=== PATIENT | female | born 1965 | race Caucasian/White ===

== ENCOUNTER → 2020-04-17 13:04 | Outpatient (CLI) | payer MEDICARE, MEDICAID, SELFPAY ==
[2020-04-17 13:25] LABS: Basophils % 0.1 % (0.1-2.0); Hematocrit 38.8 % (37.0-47.0); Hemoglobin 12.9 g/dL (12.2-16.2); Lymphocytes % 21.4 % (10-50); Mean Corpuscular HGB Conc 33.3 g/dL (31.8-35.4); Mean Corpuscular Hemoglobin 28.9 pg (27.0-31.2); Mean Corpuscular Volume 86.9 fl (81-99); Mean Platelet Volume 8.4 fl (7.4-10.4); Monocytes # 0.4 K/mm3 (0.1-1.0); Monocytes % 4.8 % (1.7-9.3); Neutrophils # 6.9 K/mm3 (1.8-7.8); Neutrophils % 73.8 % (37.0-80.0); Platelet Count 270 K/mm3 (142-424); Red Blood Count 4.46 M/mm3 (4.20-5.40); Red Cell Distribution Width 13.1 % (11.5-17.5); White Blood Count 9.3 K/mm3 (4.8-10.8)
[2020-04-17 13:45] LABS: Alanine Aminotransferase 15 U/L (12-78); Albumin Level 4.4 g/dl (3.5-5.0); Albumin/Globulin Ratio 1.4 (1.1-1.8); Alkaline Phosphatase 131 U/L (38-126); Anion Gap 12.6 mEq/L (5-15); Aspartate Amino Transferase 24 U/L (14-36); Bilirubin,Total 0.5 mg/dl (0.2-1.3); Blood Urea Nitrogen 12 mg/dl (7-17); Calcium 9.9 mg/dl (8.4-10.2); Carbon Dioxide 30 mmol/L (22.0-30.0); Chloride 102 mmol/L (98-107); Chol/HDL Ratio 2.4 (1-3.5); Cholesterol 213 mg/dl (140-200); Estimated Glomerular Filt Rate 65 ml/min (>60); GFR (African American) 79 ML/MIN (>60); Globulin 3.1 g/dL (1.3-3.2); Glucose 101 mg/dl (74-100); HDL Cholesterol 90 mg/dl (40-60); Potassium 4.6 mmoL/L (3.5-5.1); Sodium 140 mmol/L (136-145); Total Protein,Serum 7.5 g/dl (6.3-8.2); Triglycerides 115 mg/dl (30-150); VLDL Cholesterol 23 mg/dL (0-40)
[2020-04-17 13:56] LABS: Direct LDL Cholesterol 92.26 mg/dL (100-129)
[2020-04-17 14:03] LABS: Free T4 (Free Thyroxine) 1.29 ng/dl (0.78-2.19)
[2020-04-17 14:04] LABS: 25-OH Vitamin D, Total 59.7 ng/mL (30-100)
[2020-04-17 15:31] LABS: Erythrocyte Sedimentation Rate 20 mm/hr (0-30)
== END ==
PROVIDERS: Visit Provider Emergency Medicine
DX: E66.3 Overweight (principal); N39.0 Urinary tract infection, site not specified; R53.83 Other fatigue; E05.90 Thyrotoxicosis, unspecified without thyrotoxic crisis or storm; E55.9 Vitamin D deficiency, unspecified; R35.0 Frequency of micturition
CPT/HCPCS: 80053; 80061; 82306; 84439; 84443; 85025; 85651; 87086; 87088; 87186

== ENCOUNTER → 2020-04-29 07:46 | Outpatient (CLI) | payer MEDICARE, MEDICAID, SELFPAY ==
--- NOTE | 2020-04-29 07:51 | MM_ITS ---
PROCEDURE: MM DIG SCREENING MAMM BI W/CAD Digital Breast Tomosynthesis Included CLINICAL INDICATION: SCREENING There is a history of breast cancer patient's paternal cousins and paternal aunt. COMPARISON: MG MM MAMMO DIGITAL SCREENING W CAD BILAT from 04/13/2012 MG MM MAMMO DIGITAL DIAGNOSTIC W CAD BILAT from 01/27/2016 TECHNIQUE: Standard CC and MLO images and 3D Tomosynthesis was obtained. R2 CAD reviewed. FINDINGS: Scattered fibroglandular densities are seen throughout both breasts. There has been some interval fatty replacement of the breast parenchyma since the previous studies. Findings are bilateral and symmetrical. There is no suspicious lesion and no suspicious microcalcifications. IMPRESSION: Fibrofatty parenchyma with no suspicious lesions seen BI-RAD Category: 1 Negative FOLLOW-UP: 1YR 1 Year Follow-up (A letter has been sent to the patient regarding results of the study.) Dictated by: Dr. Kwan Yarbrough MD 05/05/2020 10:37 Dr. Kwan Yarbrough MD in [place] 05/05/2020 10:37
== END ==
PROVIDERS: PCP Emergency Medicine; Visit Provider Emergency Medicine
DX: Z12.31 Encounter for screening mammogram for malignant neoplasm of breast (principal)
CPT/HCPCS: 77063; 77067

== ENCOUNTER → 2020-05-01 09:53 | Outpatient (CLI) | payer MEDICARE, MEDICAID, SELFPAY ==
--- NOTE | 2020-05-01 09:53 | US_ITS ---
PROCEDURE: US KIDNEY Referring Doctor: Russell Garcia Patient Age:55Y CLINICAL INDICATION: Frequent, recurring UTIs. COMPARISON: No exams were available for comparison FINDINGS: The kidneys appear within normal limits bilaterally. No cyst nor mass nor hydronephrosis at either kidney. No echogenic foci. Cortex adequately maintained and good color Doppler flow survey bilaterally. There is fairly good visualization of right kidney more so than left. Right kidney 10 cm in length x4.1 cm x 5.45 cm. Left kidney 9.1 cm length x4 .6 cm x 4.4 cm. The spleen was included and appears normal size. IMPRESSION: Kidneys appears satisfactory bilateral. No abnormalities. /within normal limits bilateral Dictated by: Sherwin Snow MD 05/01/2020 13:39 Sherwin Snow MD in [facility] 05/01/2020 13:39
== END ==
PROVIDERS: PCP Emergency Medicine; Visit Provider Urology
DX: N39.0 Urinary tract infection, site not specified (principal)
CPT/HCPCS: 76770

== ENCOUNTER 2020-05-22 10:15 | Emergency (ER) | payer MEDICARE, MEDICAID, SELFPAY ==
[2020-05-22 10:35] VITALS: BP 144/89; PULSE 84; RESP 19; TEMP 37; O2SAT 98; BMI 26.6
--- NOTE | 2020-05-22 10:51 | HMH.EDUTC ---
[facility] – [place] Disposition Clinical Impression: Exposure to COVID-19 virus, Nausea, Itching Disposition: Home, Self-Care Condition on Discharge: Good Instructions: Preventing the Spread of Coronavirus Discharge Instructions Additional Instructions: You have been tested for COVID19. Please isolate yourself until test results received. Prescriptions: hydrOXYzine pamoate [Vistaril] 25 mg PO TID PRN 10 Days #30 cap PRN Reason: Itching Transmission Status: Pending to [facility] Ondansetron [Zofran 4mg ODT] 4 mg PO TIDP PRN 10 Days #30 tab PRN Reason: Nausea Transmission Status: Pending to [facility] Referrals: Albert Oliveros MD [Primary Care Provider] - Time of Disposition: 11:48 Medical Decision Making - [place] Inquiry Pt receiving controlled substance: No Vital Signs: 05/22/20 10:35 Temperature 98.6 F Temperature Source Oral Pulse Rate [Right Brachial] 84 Respiratory Rate 19 Blood Pressure [Right Arm] 144/89 H Blood Pressure Mean [Right Arm] 107 Blood Pressure Source [Right Arm] Automatic Cuff Blood Pressure Position [Right Arm] Sitting 02 Sat by Pulse Oximetry 98 Oxygen Delivery Method Room Air - Lab Data Lab results reviewed: Yes: I reviewed the patient's lab results. Lab Results 05/22/20 11:10: Sodium 139, Potassium 4.3, Chloride 101, Carbon Dioxide 31 H, Anion Gap 11.3, BUN 20 H, Creatinine 0.90, Estimated Creat Clear 88, Estimated GFR 65, Est GFR ( Amer) 79, Glucose 100, Calcium 9.5, Total Bilirubin 0.7, AST 42 H, ALT 27, Alkaline Phosphatase 97, Total Protein 8.1, Albumin 4.7, Globulin 3.4 H, Albumin/Globulin Ratio 1.4 Result diagrams: 05/22/20 11:10 Orders (Tests/Meds): ORDERS Category Date Time Status Full Resp Panel w/COVID ([facility]) Routine Lab 05/22/20 10:20 Received [facility] [place] HPI - General Stated complaint: Covid Test Time Seen by Provider: 05/22/20 10:51 - History of Present Illness Provider Complaint: Patient was exposed to COVID19 5-6 days ago. Has had headache, nausea, sweating and is itching all over. No rash. Denies fever. Denies ear pain, sore throat, cough, SOA, vomiting or diarrhea. Has felt poorly for 2 days. Onset (ago): day(s) (2) Consistency: constant Relieving factors: none Exacerbating factors: none Associated symptoms: headaches, malaise, nausea/vomiting Treatments prior to arrival: none - Related Data Home Medications Medication Instructions Recorded Confirmed clonidine HCl 0.1 mg tablet 0.1 mg PO QHS tab 04/17/20 05/22/20 tizanidine 4 mg tablet 4 mg PO TID tab 04/17/20 05/22/20 Previous Rx's Medication Instructions Recorded Ondansetron [Zofran 4mg ODT] 4 mg PO TIDP PRN 10 Days #30 tab 05/22/20 hydrOXYzine pamoate [Vistaril] 25 mg PO TID PRN 10 Days #30 cap 05/22/20 Allergies Allergy/AdvReac Type Severity Reaction Status Date / Time CODEINE Allergy Unknown Uncoded 05/04/20 11:55 From PAXIL Allergy Unknown Uncoded 05/04/20 11:55 MORPHINE Allergy Unknown Uncoded 05/04/20 11:55 [facility] History - Hepatitis A Screen Attestation statement:: This patient has been screened for Hepatitis A risk factors. Medical History: Reports:: Anxiety, Depression, Hyperlipidemia Other Medical History: Reports: Anemia, Arthritis, Other Laterality Cases: Left: Arthroscopy Shoulder, Carpal Tunnel Release Other Surgeries: Yes: Hysterectomy-Partial, Tubal Ligation, Other Amputation: No Fractures: Yes (jaw fx) Comment: brain tumor, back surgery and neck surgery with rods and screws, hand surgery, shoulder surgery - Social History Smoking Status: Former smoker Alcohol Intake: current Alcohol Intake Frequency:: holidays/special occasions only Substance Use Type: denies use Occupational Status: disabled Housing: other Household Members: other - Psychiatric History Pschychiatric History:: Reports:: Anxiety, Depression Family Hx:: Cancer, Heart Attack, Hypertension ROS Obtained: Yes All systems reviewed & no addit
[2020-05-22 11:36] LABS: Chloride 101 mmol/L (98-107); Sodium 139 mmol/L (136-145)
[2020-05-22 11:37] LABS: Potassium 4.3 mmoL/L (3.5-5.1)
[2020-05-22 11:39] LABS: Alanine Aminotransferase 27 U/L (12-78); Albumin Level 4.7 g/dl (3.5-5.0); Albumin/Globulin Ratio 1.4 (1.1-1.8); Alkaline Phosphatase 97 U/L (38-126); Anion Gap 11.3 mEq/L (5-15); Aspartate Amino Transferase 42 U/L (14-36); Bilirubin,Total 0.7 mg/dl (0.2-1.3); Blood Urea Nitrogen 20 mg/dl (7-17); Calcium 9.5 mg/dl (8.4-10.2); Carbon Dioxide 31 mmol/L (22.0-30.0); Creatinine Clearance Estimated 88 mL/min (50-200); Estimated Glomerular Filt Rate 65 ml/min (>60); GFR (African American) 79 ML/MIN (>60); Globulin 3.4 g/dL (1.3-3.2); Glucose 100 mg/dl (74-100); Total Protein,Serum 8.1 g/dl (6.3-8.2)
[2020-05-22 11:53] VITALS: BP 144/89; PULSE 84; RESP 19; TEMP 37; O2SAT 98
[2020-05-23 15:24] LABS: Covid-19 Nasal PCR Sendout Lex Not Detected
== END 2020-05-22 11:55 | disposition home or self-care (01) ==
PROVIDERS: Emergency Provider Physician Assistant; PCP Emergency Medicine
DX: Z20.828 Contact with and (suspected) exposure to other viral communicable diseases (principal); R11.0 Nausea; R51.9 Headache, unspecified; F41.8 Other specified anxiety disorders; E78.5 Hyperlipidemia, unspecified; Z87.891 Personal history of nicotine dependence
CPT/HCPCS: G0463; 80053; 99202; U0004

== ENCOUNTER 2020-05-29 20:11 | Emergency (ER) | payer MEDICARE, MEDICAID, SELFPAY ==
--- NOTE | 2020-05-29 20:20 | XR_ITS ---
PROCEDURE: XR KNEE LT 3V CLINICAL INDICATION: FALL Posttraumatic pain the COMPARISON: No exams were available for comparison FINDINGS: Oblique lucency is present along the lower pole of the patella consistent with a nondisplaced fracture. The joint spaces are well-preserved. No significant degenerative/arthritic changes. No erosive changes evident. Other findings:None. IMPRESSION: Nondisplaced patellar fracture Dictated by: Nahum Silverman MD 05/30/2020 08:33 Nahum Silverman MD in [place] 05/30/2020 08:33
[2020-05-29 20:22] VITALS: PULSE 97; RESP 18; TEMP 36.6; O2SAT 97; BMI 25.8
--- NOTE | 2020-05-29 20:35 | HMH.EDUTC ---
[facility] [place] Disposition Clinical Impression: Fall Qualifiers: Encounter type: initial encounter Qualified Code(s): W19.XXXA - Unspecified fall, initial encounter Left knee pain Qualifiers: Chronicity: acute Qualified Code(s): M25.562 - Pain in left knee Disposition: Home, Self-Care Condition on Discharge: Good Referrals: Albert Oliveros MD [Primary Care Provider] - Jhonatan Barrow MD [Staff Physician] - Medical Decision Making - Medical Records Medical records reviewed: No: I reviewed the patient's medical records. - [place] Inquiry Pt receiving controlled substance: No Vital Signs: 05/29/20 20:22 Temperature 97.9 F Temperature Source Oral Pulse Rate [Radial] 97 H Respiratory Rate 18 02 Sat by Pulse Oximetry 97 Oxygen Delivery Method Room Air Orders (Tests/Meds): ORDERS Category Date Time Status XR knee LT 3V Stat Exams 05/29/20 20:20 Ordered [facility] [place] HPI - General Stated complaint: AO Fell on knee 05/29/20 @230 p.m. Time Seen by Provider: 05/29/20 20:35 Mode of Arrival: Ambulatory Source of Information: Patient Limitations: No Limitations Description of Symptoms (Recalled from Triage Doc. by RN): States she fell at 230 this afternoon over a sidewalk and hurt her left knee. HEENT Symptoms (Recalled from RN notes): No Resp Symptoms (Recalled from RN notes): No Skin Symptoms (Recalled from RN notes): No MS Symptoms (Recalled from RN notes): No Functional Status (Recalled from RN notes): wnl - History of Present Illness Provider Complaint: She c/o left knee pain after falling at home in her yard and coming down on that knee. The pain is worse when she is trying to walk or bear weight. - Related Data Home Medications Medication Instructions Recorded Confirmed clonidine HCl 0.1 mg tablet 0.1 mg PO QHS tab 04/17/20 05/29/20 tizanidine 4 mg tablet 4 mg PO TID tab 04/17/20 05/29/20 Allergies Allergy/AdvReac Type Severity Reaction Status Date / Time codeine Allergy Verified 05/28/20 10:45 morphine Allergy Verified 05/28/20 10:45 paroxetine [From Paxil] Allergy Verified 05/28/20 10:45 - Worker's Comp Is this a Worker's Comp case?: No [facility] History - Hepatitis A Screen Drug use history?: No High risk sexual behaviors?: No History of sexually transmitted infection?: No Currently employed?: No Childcare worker?: No Do you have indoor plumbing?: Yes Do you have electricity?: Yes Attestation statement:: This patient has been screened for Hepatitis A risk factors. I have reviewed the patient's past medical history: Yes Medical History: Reports:: Anxiety, Depression, Hyperlipidemia Denies:: Cancer, Diabetes Mellitus Type 1, Diabetes Mellitus Type 2, Internal Pacemaker, MRSA Other Medical History: Reports: Anemia, Arthritis, Other Laterality Cases: Left: Arthroscopy Shoulder, Carpal Tunnel Release Other Surgeries: Yes: Hysterectomy-Partial, Tubal Ligation, Other. No: Pacemaker Amputation: No Fractures: Yes (jaw fx) Comment: brain tumor, back surgery and neck surgery with rods and screws, hand surgery, shoulder surgery - Social History Smoking Status: Never smoker Alcohol Intake: never Alcohol Intake Frequency:: holidays/special occasions only Substance Use Type: denies use Occupational Status: other Housing: house Household Members: other - Psychiatric History Pschychiatric History:: Reports:: Anxiety, Depression Family Hx:: Cancer ROS Obtained: Yes All systems reviewed & no additional complaints - Constitutional Constitutional: Denies chills, Denies fever(s) - Musculoskeletal Musculoskeletal: Reports as per HPI - Integumentary/Breasts Skin/Breast: Denies redness, Denies rash, Denies wounds - Neurologic Neurologic: Denies tingling/numbness/burning sensations Physical Exam - General General appearance: alert, in no apparent distress - Head Head exam: atraumatic, normocephalic, normal inspection - Eye Eye exam: Present: normal appearance, PERRL
--- NOTE | 2020-05-29 20:49 | HMH.EDUTC ---
[facility] [place]ression: Fall Qualifiers: Encounter type: initial encounter Qualified Code(s): W19.XXXA - Unspecified fall, initial encounter Fracture of left patella Qualifiers: Encounter type: initial encounter Fracture type: closed Fracture morphology: unspecified fracture morphology Fracture alignment: nondisplaced Qualified Code(s): S82.002A - Unspecified fracture of left patella, initial encounter for closed fracture Disposition: Home, Self-Care Condition on Discharge: Good Instructions: How to Use Crutches, DI for Patella Fracture, How to Take Care of Your Splint Additional Instructions: Follow up with Dr. Barrow (orthopedics). You need to call him on Monday at around 8:30 am to get an appointment to be seen at his office. Take the medication as directed. Rest the extremity, apply ice for 15 minutes as tolerated three or four times per day, Elevate the extremity as tolerated while you are resting. Follow up with your regular doctor. GO TO THE ER FOR ANY WORSENING SYMPTOMS Prescriptions: Ibuprofen [Ibuprofen 800mg Tablet] 800 mg PO Q8HP PRN #30 tab PRN Reason: Moderate Pain Transmission Status: Received by [facility] Referrals: Albert Oliveros MD [Primary Care Provider] - Jhonatan Barrow MD [Staff Physician] - Forms: Work/School Release Time of Disposition: 21:19 Medical Decision Making - Medical Records Medical records reviewed: No: I reviewed the patient's medical records. - [place] Inquiry Pt receiving controlled substance: No Vital Signs: 05/29/20 20:22 05/29/20 21:13 Temperature 97.9 F 97.9 F Temperature Source Oral Oral Pulse Rate 97 H Pulse Rate [Radial] 97 H Respiratory Rate 18 18 Blood Pressure 132/76 Blood Pressure Source Automatic Cuff Blood Pressure Position Sitting 02 Sat by Pulse Oximetry 97 Oxygen Delivery Method Room Air Room Air Orders (Tests/Meds): ED MEDICATIONS Discontinued Medications Generic Name Dose Route Start Last Admin Trade Name Freq PRN Reason Stop Dose Admin Ibuprofen 800 mg 05/29/20 21:24 05/29/20 21:30 Ibuprofen 400 Mg Tablet PO 05/29/20 21:25 800 mg ONCE ONE Administration ORDERS Category Date Time Status XR knee LT 3V Stat Exams 05/29/20 20:20 Taken - Radiology Data #1 Image(s): Knee Image Reviewed: Yes I reviewed the patient's radiology image Preliminary Findings: Abnormal Fractured patella Medical Decision Narrative: I spoke to Dr. Barrow over the phone regarding this patient and her x-ray. [facility] [place] - General Stated complaint: AO Fell on knee 05/29/20 @230 p.m. Time Seen by Provider: 05/29/20 20:35 Mode of Arrival: Ambulatory Source of Information: Patient Limitations: No Limitations Description of Symptoms (Recalled from Triage Doc. by RN): States she fell at 230 this afternoon over a sidewalk and hurt her left knee. HEENT Symptoms (Recalled from RN notes): No Resp Symptoms (Recalled from RN notes): No Skin Symptoms (Recalled from RN notes): No MS Symptoms (Recalled from RN notes): No Functional Status (Recalled from RN notes): wnl - History of Present Illness Provider Complaint: She states that she fell in her yard today and came down on her left knee. Since then she has been having left knee pain. The pain is worse with walking and bearing weight. - Related Data Home Medications Medication Instructions Recorded Confirmed clonidine HCl 0.1 mg tablet 0.1 mg PO QHS tab 04/17/20 05/29/20 tizanidine 4 mg tablet 4 mg PO TID tab 04/17/20 05/29/20 Previous Rx's Medication Instructions Recorded Ibuprofen [Ibuprofen 800mg 800 mg PO Q8HP PRN #30 tab 05/29/20 Tablet] Allergies Allergy/AdvReac Type Severity Reaction Status Date / Time codeine Allergy Verified 05/28/20 10:45 morphine Allergy Verified 05/28/20 10:45 paroxetine [From Paxil] Allergy Verified 05/28/20 10:45 - Worker's Comp Is this a Worker's Comp
[2020-05-29 21:13] VITALS: BP 132/76; PULSE 97; RESP 18; TEMP 36.6; O2SAT 97
== END 2020-05-29 21:31 | disposition home or self-care (01) ==
PROVIDERS: Emergency Provider Nurse Practitioner Family; PCP Emergency Medicine
DX: S82.002A Unspecified fracture of left patella, initial encounter for closed fracture (principal); W01.0XXA Fall on same level from slipping, tripping and stumbling without subsequent striking against object, initial encounter; Y92.017 Garden or yard in single-family (private) house as the place of occurrence of the external cause; F41.8 Other specified anxiety disorders; E78.5 Hyperlipidemia, unspecified
CPT/HCPCS: 29505; G0463; 73562; 99203

== ENCOUNTER 2020-06-03 15:06 | Outpatient (RCR) | payer MEDICARE, MEDICAID, SELFPAY | END 2020-06-03 15:58 | disposition home or self-care (01) | LOC: PT 15:06 | PROVIDERS: Visit Provider Orthopaedic Surgery | DX: S82.002A Unspecified fracture of left patella, initial encounter for closed fracture (principal) | CPT/HCPCS: 97760 ==

== ENCOUNTER → 2020-06-17 12:52 | Outpatient (CLI) | payer MEDICARE, MEDICAID, SELFPAY ==
--- NOTE | 2020-06-17 12:55 | XR_ITS ---
PROCEDURE: XR KNEE LT 3V CLINICAL INDICATION: left pole patella fracture Follow-up patellar fracture COMPARISON: CR XR KNEE LT 3V from 05/29/2020 FINDINGS: Nondisplaced fracture once again noted over the lower pole of the patella with minimal distraction overall not significantly changed. No complete bony union evident. Minimal osteoarthritic changes are present Other findings:None. IMPRESSION: No change nondisplaced patellar fracture of the lower pole without complete bony union. Dictated by: Nahum Silverman MD 06/17/2020 14:40 Nahum Silverman MD in [place] 06/17/2020 14:40
== END ==
PROVIDERS: PCP Emergency Medicine; Visit Provider Orthopaedic Surgery
DX: S82.092D Other fracture of left patella, subsequent encounter for closed fracture with routine healing (principal)
CPT/HCPCS: 73562

== ENCOUNTER → 2020-07-08 10:17 | Outpatient (CLI) | payer MEDICARE, MEDICAID, SELFPAY ==
--- NOTE | 2020-07-08 10:21 | XR_ITS ---
PROCEDURE: XR KNEE LT 3V CLINICAL INDICATION: left patella pole fracture COMPARISON: CR XR KNEE LT 3V from 05/29/2020 CR XR KNEE LT 3V from 06/17/2020 FINDINGS: There are minimal osteoarthritic changes Minimally distracted fracture once again noted involving the lower pole of the patella. There appears to be some callus formation posteriorly. Fracture line is still visible anteriorly. Other findings:None. IMPRESSION: Healing patellar fracture Dictated by: Nahum Silverman MD 07/08/2020 16:24 Nahum Silverman MD in [place] 07/08/2020 16:24
== END ==
PROVIDERS: PCP Emergency Medicine; Visit Provider Orthopaedic Surgery
DX: S82.092D Other fracture of left patella, subsequent encounter for closed fracture with routine healing (principal)
CPT/HCPCS: 73562

== ENCOUNTER → 2020-07-09 18:08 | Outpatient (CLI) | payer MEDICARE, MEDICAID, SELFPAY ==
[2020-07-14 11:17] LABS: Neisseria gonorrhoeae, NAA Negative (Negative)
== END ==
PROVIDERS: Visit Provider Nurse Practitioner Family
DX: N89.8 Other specified noninflammatory disorders of vagina (principal); N39.0 Urinary tract infection, site not specified; Z72.51 High risk heterosexual behavior
CPT/HCPCS: 87086; 87210; 87491; 87591

== ENCOUNTER → 2020-08-25 13:10 | Outpatient (CLI) | payer MEDICARE, MEDICAID, SELFPAY ==
--- NOTE | 2020-08-25 13:15 | XR_ITS ---
PROCEDURE: XR KNEE LT 3V CLINICAL INDICATION: left patella pole fracture Follow-up fracture COMPARISON: CR XR KNEE LT 3V from 05/29/2020 CR XR KNEE LT 3V from 06/17/2020 DX XR KNEE LT 3V from 07/08/2020 FINDINGS: There is a nondisplaced fracture involving the lower pole of the patella. There is incomplete bony healing. There remains good alignment. The fracture line may be somewhat less apparent compared to the previous exam. Minimal osteoarthritic change medial compartment. Other findings:None. IMPRESSION: Nondisplaced fracture line once again noted in the lower pole of the patella which appears somewhat less apparent compared to the previous exam suggesting healing. Complete bony union not apparent at this time. Dictated by: Nahum Silverman MD 08/25/2020 15:00 Nahum Silverman MD in [place] 08/25/2020 15:00
== END ==
PROVIDERS: PCP Emergency Medicine; Visit Provider Orthopaedic Surgery
DX: S82.002A Unspecified fracture of left patella, initial encounter for closed fracture (principal)
CPT/HCPCS: 73562

== ENCOUNTER 2020-12-24 10:00 | Emergency (ER) | payer MEDICARE, MEDICAID, SELFPAY ==
[2020-12-24 10:01] VITALS: BP 125/84; PULSE 78; RESP 18; TEMP 36.6; O2SAT 99; BMI 26.6
--- NOTE | 2020-12-24 10:27 | HMH.EDGENADL ---
ED Disposition Clinical Impression: Lumbar disc disease Low back pain Qualifiers: Chronicity: acute Back pain laterality: bilateral Sciatica presence: without sciatica Qualified Code(s): M54.5 - Low back pain Incontinence Qualifiers: Incontinence type: urinary Urinary Incontinence type: unspecified incontinence Qualified Code(s): R32 - Unspecified urinary incontinence Incontinence of feces Qualifiers: Fecal incontinence type: unspecified Qualified Code(s): R15.9 - Full incontinence of feces Disposition: Home, Self-Care Condition on Discharge: Good Instructions: DI for Low Back Pain Additional Instructions: Follow-up with your primary care provider tomorrow in the office is scheduled. Macrobid for possible UTI. Follow-up urine culture results with primary care provider in 2 to 3 days. Toradol as needed for pain. Continue Suboxone. Prescriptions: Ketorolac Tromethamine [Toradol 10mg tablet] 10 mg PO Q6HP PRN #10 tab PRN Reason: Moderate Pain Transmission Status: P[facility] to [facility] Nitrofurantoin Monohyd/M-Cryst [Macrobid 100 mg Capsule] 100 mg PO BID #14 cap Transmission Status: Pending to [facility] Referrals: Albert Oliveros MD [Primary Care Provider] - - Critical Care Critical Care Time: No Attestation: On 12/24/20, the high probability of a clinically significant, sudden or life threatening deterioration of the following system(s) required my full and direct attention, intervention and personal management. The time I documented below is in addition to time spent performing reported procedures but includes the following listed in this critical care notation. Medical Decision Making - [place] Inquiry Pt receiving controlled substance: Yes (requesting medication for pain) [place] was queried for this patient: Yes Risks and benefits of using a controlled substance: were not discussed with pt by me Comment: On Suboxone Vital Signs: 12/24/20 10:01 Temperature 97.9 F Temperature Source Oral Pulse Rate [Right] 78 Respiratory Rate 18 Blood Pressure [Right Arm] 125/84 Blood Pressure Mean [Right Arm] 97 02 Sat by Pulse Oximetry 99 - Lab Data Lab Results 12/24/20 10:33: Urine Color Yellow, Urine Appearance Clear, Urine pH 7.0, Ur Specific [place] 1.020, Urine Protein Negative, Urine Glucose (UA) Negative, Urine Ketones Negative, Urine Blood Negative, Urine Nitrate Negative, Urine Bilirubin Negative, Urine Urobilinogen 0.2, Ur Leukocyte Esterase 1+ A, Urine RBC None, Urine WBC 5-10, Ur Squamous Epith Cells 3-5, Urine Bacteria Trace Orders (Tests/Meds): ED MEDICATIONS Discontinued Medications Generic Name Dose Route Start Last Admin Trade Name Miguelq PRN Reason Stop Dose Admin Hydromorphone HCl 1 mg 12/24/20 11:18 12/24/20 10:50 Hydromorphone 2mg/Ml Syringe IV 12/24/20 11:19 1 mg ONCE ONE Administration Ketorolac Tromethamine 30 mg 12/24/20 13:06 Ketorolac 30mg/Ml Vial IV 12/24/20 13:07 ONCE ONE ORDERS Category Date Time Status Urine Culture Stat Micro 12/24/20 10:33 Received - Physician Consults Physician Consulted: Dr. Saini Time: 11:30 Reason -: Pt condition Comment/Response: Advised of condition. MRI result pending. States if MRI is negative for cauda equina syndrome, follow-up in their office tomorrow as scheduled. Toradol for pain. General Adult HPI - General Chief complaint: Back Pain/Injury Stated complaint: low back pain, no accident Time Seen by Provider: 12/24/20 10:27 Mode of Arrival: Family Vehicle Limitations: No Limitations Description of Symptoms (Recalled from ER Triage Doc. by RN): PATIENT C/O LOWER BACK PAIN AND RECENT INCONTINENCE OF BOWEL AND BLADDER. PT REPORTS SHE HAS A CHRONIC BACK HISTORY AND HAS HAD A LUMBAR FUSION. PT DENIES ANY RECENT INJURY TO HER BACK. PT AMBULATORY IN ED TRIAGE. - History of Present Illness HPI narrative: States that she hauled water buckets all day 2 days ago.
[2020-12-24 10:49] LABS: Microscopic, Urine URINE MICROSCOPIC (MICROSCOPIC)
--- NOTE | 2020-12-24 10:49 | MR_ITS ---
PROCEDURE: MR LUMBAR SPINE WO CON CLINICAL INDICATION: LOW BACK PAIN, STOOL AND BLADDER INCONTINENCE Possible cauda equina syndrome COMPARISON: No exams were available for comparison TECHNIQUE: Standard multiplanar multiecho sequences are performed without contrast. 3-D MIP and myelographic images are also rendered and reviewed FINDINGS: There is normal alignment. The spinal cord ends at the L1-L2 level. L2-L3: Mild degenerative disc disease with bulging disc and a small left paracentral disc protrusion. There is prominent facet and uncovertebral hypertrophy with moderate bilateral lateral recess narrowing and mild bilateral foraminal narrowing. The lateral recess narrowing is greater on the left secondary to the minimal disc protrusion. Borderline canal stenosis. L3-L4: Degenerative disc disease with mild bulging disc with moderate facet and ligamentum hypertrophy with moderate bilateral lateral recess narrowing, moderate to severe right foraminal narrowing, and moderate left foraminal narrowing. There is transverse narrowing of the canal at this level. L4-5: Artifact is present from prior posterior fusion with inter pedicular screws at L4 and L5. There is degenerative disc disease at this level but no evidence of canal stenosis. There is mild left foraminal narrowing from facet hypertrophic change. Partial laminectomy L4 with complete laminectomy at L5 and partial laminectomy at S1. L5-S1: Degenerative disc disease with minimal bulging disc and small annular fissure. Facet and ligamentum hypertrophy is present with mild bilateral foraminal narrowing. IMPRESSION: There are multilevel degenerative changes with bulging disc and facet and ligamentum hypertrophy with lateral recess and foraminal narrowing along with a left paracentral disc protrusion at L2-L3 and postsurgical changes at L4-L5 and S1. Please see above for detailed description at each level. No evidence of lesion at the cauda equina compression or lesion. Dictated by: Nahum Silverman MD 12/24/2020 12:40 Nahum Silverman MD in [place] 12/24/2020 12:40
[2020-12-24 10:52] LABS: Appearance,Urine CLEAR (Clear); Bilirubin,Urine Negative (Negative); Blood, Urine Negative (Negative); Color,Urine YELLOW (Yellow); Glucose,Urine (UA) Negative (Negative); Ketones,Urine Negative (Negative); Leukocyte Esterase,Urine 1+ (Negative); Nitrate,Urine Negative (Negative); Protein,Urine Negative (Negative); Urobilinogen,Urine 0.2 EU/dl (0.2)
--- NOTE | 2020-12-24 10:53 | PC.NURSE ---
pt taken to MRI
[2020-12-24 11:16] LABS: Bacteria,Urine Trace /lpf
[2020-12-24 13:27] VITALS: BP 140/73; PULSE 57; RESP 18; TEMP 36.8; O2SAT 97
== END 2020-12-24 13:30 | disposition home or self-care (01) ==
PROVIDERS: Emergency Provider Emergency Medicine; PCP Emergency Medicine
DX: M54.5 Low back pain (principal); R32 Unspecified urinary incontinence; R15.9 Full incontinence of feces; F41.8 Other specified anxiety disorders; E78.5 Hyperlipidemia, unspecified; D64.9 Anemia, unspecified
CPT/HCPCS: 72148; 76376; 81001; 87086; 87088; 87186; 96374; 99282

== ENCOUNTER 2021-03-15 08:39 | Emergency (ER) | payer MEDICARE, MEDICAID, SELFPAY ==
[2021-03-15 08:41] VITALS: BP 144/107; PULSE 120; RESP 18; TEMP 36.7; O2SAT 96; BMI 25.0
--- NOTE | 2021-03-15 09:04 | CT_ITS ---
PROCEDURE: CT ABDOMEN PELVIS WO CON CLINICAL INDICATION: flank pain Bilateral flank pain COMPARISON: No exams were available for comparison TECHNIQUE: Axial images obtained with sagittal and coronal reformats. All CT scans at the facility use one or more dose reduction, viz: automated exposure control, ma/kV adjustment per patient size (including targeted exams where dose is matched to indication, i.e. head), or iterative reconstruction technique. FINDINGS: LOWER THORAX: No acute finding ABDOMEN & PELVIS: Scattered isodense a [place] lesions the largest in the left hepatic lobe segment 3 measuring 2 cm consistent with cysts. The spleen, adrenal glands, pancreas, and gallbladder have an unremarkable CT appearance. No renal or ureteral calculi. No hydronephrosis. No intestinal obstruction or free air. No evidence of appendicitis or diverticulitis. The ascending and transverse colon has a slightly thickened appearance but could be due to nondistention. No stranding of the pericolic fat. Prior hysterectomy. No pelvic mass or abnormal fluid collection. Prior posterior fusion at L4-5. No acute bony findings. Probable small bone island in the right superior pubic ramus medially. Small umbilical hernia containing fat. IMPRESSION: No definite acute finding. Nonspecific thickened appearance of the ascending and transverse colon which could be due to nondistention or colitis. Please correlate with clinical parameters. No renal or ureteral calculi or hydronephrosis. Dictated by: Nahum Silverman MD 03/15/2021 09:40 Nahum Silverman MD in [place] 03/15/2021 09:40
--- NOTE | 2021-03-15 09:11 | PC.NURSE ---
patient to CT
[2021-03-15 10:03] LABS: Microscopic, Urine URINE MICROSCOPIC (MICROSCOPIC)
[2021-03-15 10:07] LABS: Basophils % 0.3 % (0.1-2.0); Eosinophils % 0.1 % (0.1-12.0); Hemoglobin 15.2 g/dL (12.2-16.2); Lymphocytes # 2.1 K/mm3 (0.7-4.5); Lymphocytes % 31.3 % (10-50); Mean Corpuscular HGB Conc 33.8 g/dL (31.8-35.4); Mean Corpuscular Hemoglobin 28.5 pg (27.0-31.2); Mean Corpuscular Volume 84.3 fl (81-99); Mean Platelet Volume 8.6 fl (7.4-10.4); Monocytes # 0.4 K/mm3 (0.1-1.0); Monocytes % 5.8 % (1.7-9.3); Neutrophils # 4.1 K/mm3 (1.8-7.8); Neutrophils % 62.5 % (37.0-80.0); Platelet Count 368 K/mm3 (142-424); Red Blood Count 5.33 M/mm3 (4.20-5.40); Red Cell Distribution Width 13.5 % (11.5-17.5); White Blood Count 6.6 K/mm3 (4.8-10.8)
[2021-03-15 10:08] LABS: Chloride 101 mmol/L (98-107); Potassium 3.6 mmoL/L (3.5-5.1); Sodium 140 mmol/L (136-145)
[2021-03-15 10:10] LABS: Blood Urea Nitrogen 10 mg/dl (7-17); Creatinine Clearance Estimated 92 mL/min (50-200); Estimated Glomerular Filt Rate 75 ml/min (>60); GFR (African American) 90 ML/MIN (>60)
[2021-03-15 10:11] LABS: Alanine Aminotransferase 17 U/L (12-78); Albumin Level 5.3 g/dl (3.5-5.0); Albumin/Globulin Ratio 1.4 (1.1-1.8); Alkaline Phosphatase 111 U/L (38-126); Anion Gap 12.6 mEq/L (5-15); Aspartate Amino Transferase 25 U/L (14-36); Bilirubin,Total 0.7 mg/dl (0.2-1.3); Calcium 10.3 mg/dl (8.4-10.2); Carbon Dioxide 30 mmol/L (22.0-30.0); Globulin 3.7 g/dL (1.3-3.2); Glucose 109 mg/dl (74-100); Lipase 84 U/L (23-300)
--- NOTE | 2021-03-15 10:19 | HMH.EDGENADL ---
ED Disposition Clinical Impression: Colitis Disposition: Home, Self-Care Condition on Discharge: Good Instructions: DI for Colitis Referrals: Albert Oliveros MD [Primary Care Provider] - Jose Weston MD [Staff Physician] - - Critical Care Critical Care Time: No Attestation: On 03/15/21, the high probability of a clinically significant, sudden or life threatening deterioration of the following system(s) required my full and direct attention, intervention and personal management. The time I documented below is in addition to time spent performing reported procedures but includes the following listed in this critical care notation. Medical Decision Making - Medical Records Medical records reviewed: Yes: I reviewed the patient's medical records. - [place] Inquiry Pt receiving controlled substance: No Vital Signs: 03/15/21 08:41 Temperature 98.0 F Temperature Source Oral Pulse Rate [Left] 120 H Respiratory Rate 18 Blood Pressure [Right Arm] 144/107 H Blood Pressure Mean [Right Arm] 119 02 Sat by Pulse Oximetry 96 Oxygen Delivery Method Room Air - Lab Data Lab Results 03/15/21 08:56: Urine Color Yellow, Urine Appearance Clear, Urine pH 6.5, Ur Specific [place] 1.015, Urine Protein Negative, Urine Glucose (UA) Negative, Urine Ketones Negative, Urine Blood Negative, Urine Nitrate Negative, Urine Bilirubin Negative, Urine Urobilinogen 0.2, Ur Leukocyte Esterase Negative, Urine RBC None, Urine WBC None, Ur Squamous Epith Cells None, Urine Bacteria None 03/15/21 08:56: WBC 6.6, RBC 5.33, Hgb 15.2, Hct 45.0, MCV 84.3, MCH 28.5, MCHC 33.8, RDW 13.5, Plt Count 368, MPV 8.6, Neut % (Auto) 62.5, Lymph % (Auto) 31.3, [place] % (Auto) 5.8, Eos % (Auto) 0.1, Baso % (Auto) 0.3, Neut # (Auto) 4.1, Lymph # (Auto) 2.1, [place] # (Auto) 0.4, Eos # (Auto) 0.0, Baso # (Auto) 0.0 03/15/21 08:56: Sodium 140, Potassium 3.6, Chloride 101, Carbon Dioxide 30, Anion Gap 12.6, BUN 10, Creatinine 0.80, Estimated Creat Clear 92, Estimated GFR 75, Est GFR ( Amer) 90, Glucose 109 H, Calcium 10.3 H, Total Bilirubin 0.7, AST 25, ALT 17, Alkaline Phosphatase 111, Total Protein 9.0 H, Albumin 5.3 H, Globulin 3.7 H, Albumin/Globulin Ratio 1.4, Lipase 84 Result diagrams: 03/15/21 08:56 03/15/21 08:56 Orders (Tests/Meds): ED MEDICATIONS Discontinued Medications Generic Name Dose Route Start Last Admin Trade Name Syed PRN Reason Stop Dose Admin Sodium Chloride 1,000 mls @ 999 mls/hr 03/15/21 09:15 03/15/21 09:22 Sod Chlor 0.9% 1000ml Bag IV 03/15/21 10:15 999 mls/hr .Q1H1M NISHA Administration Ketorolac Tromethamine 30 mg 03/15/21 09:03 03/15/21 09:23 Ketorolac 30mg/Ml Vial IV 03/15/21 09:04 30 mg ONCE ONE Administration - CT Data CT Scan: Abdomen, Pelvis Time Received: 10:[address] Reviewed: Yes: I have reviewed the patient's CT results, I have viewed the radiologist's interpretation Findings Narrative: IMPRESSION: No definite acute finding. Nonspecific thickened appearance of the ascending and transverse colon which could be due to nondistention or colitis. Please correlate with clinical parameters. No renal or ureteral calculi or hydronephrosis. - Reevaluation(s) Time: 10:56 Reevaluation #1: On reevaluation, the patient is feeling better. Repeat abdominal examination does not show any acute abdomen or significant tenderness. CT scan findings were consistent with possible colitis. Patient is not having any diarrhea however. Urinalysis unremarkable. Patient will be given GI follow-up. Needs follow-up with PCP as well. Given strict return precautions. Verbalized understanding. Medical Decision Narrative: 56-year-old female presenting with some bilateral flank pain. Appears to be chronic in nature. Patient has some mild tenderness on examination. No evidence of acute abdomen. Work-up initiated. General Adult HPI - General Chief complaint: Back Pain/Injury Stated compla
[2021-03-15 10:21] LABS: Appearance,Urine CLEAR (Clear); Bilirubin,Urine Negative (Negative); Blood, Urine Negative (Negative); Color,Urine YELLOW (Yellow); Glucose,Urine (UA) Negative (Negative); Ketones,Urine Negative (Negative); Leukocyte Esterase,Urine Negative (Negative); Nitrate,Urine Negative (Negative); PH,Urine 6.5 (5.0-8.5); Protein,Urine Negative (Negative); Specific Gravity, Urine 1.015 (1.005-1.030); Urobilinogen,Urine 0.2 EU/dl (0.2)
[2021-03-15 11:18] VITALS: BP 171/96; PULSE 81; RESP 16; TEMP 36.7; O2SAT 97
== END 2021-03-15 11:20 | disposition home or self-care (01) ==
PROVIDERS: Emergency Provider Emergency Medicine; PCP Emergency Medicine
DX: K52.9 Noninfective gastroenteritis and colitis, unspecified (principal); F41.8 Other specified anxiety disorders; M54.5 Low back pain; E78.5 Hyperlipidemia, unspecified; Z88.5 Allergy status to narcotic agent
CPT/HCPCS: 74176; 80053; 81001; 83690; 85025; 96365; 96375; 99283

== ENCOUNTER → 2021-03-24 09:31 | Outpatient (CLI) | payer MEDICARE, MEDICAID, SELFPAY | PROVIDERS: PCP Emergency Medicine; Visit Provider Urology | DX: E78.5 Hyperlipidemia, unspecified (principal); I10 Essential (primary) hypertension; I49.9 Cardiac arrhythmia, unspecified; R00.2 Palpitations; R06.00 Dyspnea, unspecified; R07.9 Chest pain, unspecified; R42 Dizziness and giddiness; R55 Syncope and collapse; Z87.898 Personal history of other specified conditions | CPT/HCPCS: 93270 ==

== ENCOUNTER → 2021-04-06 11:25 | Outpatient (CLI) | payer MEDICARE, MEDICAID, SELFPAY ==
--- NOTE | 2021-04-06 | CA_ITS ---
APPROVED REPORT Exam: Pharmacologic Technologist: Lilly Mcfarlane, Ht: 5 ft 7 in Wt: 164 lbs BSA: 1.86 m2 HR: 63 bpm BP: 160/87 mmHg Rhythm: NSR Indications: Chest pain dizzy Medical History Medications: Clonidine,,,,, Metoprolol,,,,, Gabapentin,,,,, HCTZ,,,,, Stress Test Details Test: LEXISCAN HR Resting HR: 59 bpm Max Heart Rate (APMHR): 166.899731 bpm Max HR Achieved: 121 bpm Target HR (85% APMHR): 141.609160 bpm % of APMHR: 72.89 Recovery HR: 80 bpm BP Resting BP: 160/87 mmHg Max BP: 160/87 mmHg Recovery BP: 153.0/82.0 mmHg ECG Clinical Reason for Termination: Completed protocol Exercise duration: 04:06 min Highest Stage Achieved: Exercise capacity: 1.0 METs Stress ECG Conclusion Symptoms - SOA, malaise,lightheaded,brief stomach discomfort, no chest pain. No arrhythmias. NST wave changes inferiorly and ceasar;aterally. Non diagnostic Lexiscan stress. Myoview images reported separately. Electronically signed by : Radhames Faustin MD 04/06/2021 18:53:32
--- NOTE | 2021-04-06 11:25 | NM_ITS ---
APPROVED REPORT Exam: Nuclear Stress Test Indication: chest pain..palpitations..syncope Patient Location: Outpatient Stress Tech: Lilly Mcfarlane DC Tech:JAKE Rincon RT(R)(N) Ht: 5 ft 7 in Wt: 165 lbs Bra Size: d HR: 59 bpm BP: 160/87 mmHg BSA: 1.86 m2 BMI: 25.8 History: chest pain..palpitations..syncope Procedure: Patient received a 0.4 mg of intravenous Lexiscan, resting heart rate 59 bpm, resting blood pressure 160/87 mmHg, with Lexiscan maximum heart rate achived was 121 bpm which is Less than 85 % of the maximum predicted heart rate and blood pressure was 160/87 mmHg. With Lexiscan, patient denied any complaint of chest pain. Electrocardiogram Resting electrocardiogram shows sinus rhythm, with Lexiscan there is less than 1.[address] segment depression noted from the baseline EKG. The EKG portion of the Lexiscan is nondiagnostic. Cardiac Stress and Resting SPECT Images: Cardiac Stress and Resting SPECT images were obtained using technetium 99m Myoview 30.7 mCi stress and 9.97 mCi at rest. Gated SPECT for analysis of segmental wall motion and calculation of the ejection fraction also done. Cardiac stress and rest SPECT images show uniform myocardial activity without segmental perfusion abnormality, computer derived ejection fraction is 48% with no regional wall motion abnormality, right ventricle is normal size and contractility. Conclusion: 1. The EKG portion of the Lexiscan is nondiagnostic. 2. No scintigraphic evidence of reversible ischemia seen, computer derived ejection fraction is 48% with no regional wall motion abnormality, right ventricle is normal size and contractility. 3. Normal Lexiscan Myoview study. Electronically signed by : Radhames Faustin MD 04/06/2021 18:58:19
--- NOTE | 2021-04-06 11:48 | CA_ITS ---
APPROVED REPORT EXAM: Comprehensive 2D, Doppler, and color-flow Echocardiogram Tank Charger: LARS Lugo, RVS Ht: 5 ft 7 in Wt: 164lbs BSA: 1.86 BP: 124/81 mmHg Indications: Palpitations, dizziness, cp, htn, HLD, Hx-pituitary tumor 2D Dimensions IVSd 0.79 cm LVEF (Visual) 62.60 % PWd 0.76 cm LA Volume 49.20 mL LVDd 4.32 cm LA Volume Index 26.50 mL/m2 (M/F) 16-34 LVDs 2.87 cm Left Atrium 3.35 cm LVOT 1.94 cm (M/F) 1.5-2.5 M-Mode Dimensions LA Diam 3.18 cm (1.9-4.0) Ao Diam 3.06 cm (2.0-3.7) TAPSE 2.30 (<1.7) LV Diastology E Decel Time 173.00 (160-240 msec) E/A Ratio 1.33 MED E' 10.10 (< 7 cm/sec) MED A' 8.80 cm/s E'/MED E' Ratio 8.73 (>14) LAT E' 11.00 (<10 cm/sec) LAT A' 8.10 cm/s E/LAT E' Ratio 8.02 (>14) Aortic Valve LVOT Max 100.00 (70-110 cm/s) LVOT VTI 23.91 cm AoV Peak Gerry. 135.00 (50-130 cm/s) AO Peak GR. 7.30 mmHg AO Mean GR. 3.70 (<5 mmHg) AO VTI 31.30 (18-25 cm) EMBER (VTI) 2.26 (2.5-4.5 cm2) Mitral Valve MV A Velocity 66.00 (40-130 cm/s) E/A Ratio 1.33 MV Decel. Time 173.00 (160-240 ms) Pulmonary Valve PV Peak Velocity 95.00 (50-150 cm/s) Tricuspid Valve TR P. Velocity 238.00 cm/s RAP Estimate 10.00 mmHg RVSP 32.60 mmHg Left Ventricle Left atrium is mildly enlarged, left ventricle is normal size, left ventricle wall thickness is upper limit of normal, there is preserved left ventricular systolic function, visually estimated ejection fraction 55% with no regional wall motion abnormality, diastolic parameters are within normal range. Right Ventricle Right atrium and right ventricle are normal size and contractility. Aortic Valve Aortic valve is minimally thickened and fibrosed, there is no aortic stenosis or aortic insufficiency. Mitral Valve Mitral valve is grossly normal, there is trace mitral regurgitation. Tricuspid Valve Tricuspid valve grossly normal, there is trace tricuspid regurgitation, calculated right ventricular systolic pressure is 32 mmHg. Pulmonic Valve Pulmonic valve is poorly visualized. Great Vessels Aortic root is normal size. Pericardium No significant pericardial effusion noted. Conclusion 1. Mildly enlarged left atrium, normal left ventricular size, visually estimated ejection fraction 55% with no regional wall motion abnormality diastolic parameters are within normal range. 2. Trace mitral and tricuspid regurgitation, calculated right ventricular systolic pressure 32 mmHg. 3. No significant pericardial effusion noted. Electronically signed by : Radhames Faustin MD 04/06/2021 19:21:33
--- NOTE | 2021-04-06 11:48 | CA_ITS ---
APPROVED REPORT Supervisor [employer]: TON Laterality: Bilateral Study Quality: Good Indications: dizziness Doppler Spectral Velocity Analysis ECA (R) 77.80/15.00 cm/s ECA (L) 64.30/14.20 cm/s dICA (R) 95.80/35.20 cm/s dICA (L) 76.50/34.80 cm/s Len (R) 91.30/33.70 cm/s Len (L) 82.90/20.30 cm/s pICA (R) 53.90/16.50 cm/s pICA (L) 36.20/15.00 cm/s dCCA (R) 57.60/19.50 cm/s dCCA (L) 56.90/16.50 cm/s pCCA (R) 78.10/19.20 cm/s pCCA (L) 65.10/17.20 cm/s Vert (R) 33.70/6.70 cm/s Vert (L) 53.50/13.40 cm/s ICA/CCA 1.23 ICA/CCA 1.27 Findings Duplex evaluation demonstrates retrograde flow of the bilateral Vertebral Arteries. Duplex evaluation demonstrates stenosis of the right proximal internal carotid artery <20% with PSV <140 cm/sec, EDV <100 cm/sec, and IC/CC Ratio <4.0.Duplex evaluation demonstrates stenosis of the left proximal internal carotid artery <20% with PSV <140 cm/sec, EDV <100 cm/sec, and IC/CC Ratio <4.0. Conclusion Duplex evaluation demonstrates retrograde flow of the bilateral Vertebral Arteries. Duplex evaluation demonstrates stenosis of the right proximal internal carotid artery <20% with PSV <140 cm/sec, EDV <100 cm/sec, and IC/CC Ratio <4.0.Duplex evaluation demonstrates stenosis of the left proximal internal carotid artery <20% with PSV <140 cm/sec, EDV <100 cm/sec, and IC/CC Ratio <4.0. Electronically signed by : Nahum Silverman MD 04/06/2021 16:35:57
== END ==
PROVIDERS: PCP Emergency Medicine; Visit Provider Urology
DX: R55 Syncope and collapse; R42 Dizziness and giddiness; R06.00 Dyspnea, unspecified; R07.9 Chest pain, unspecified; I49.9 Cardiac arrhythmia, unspecified; R00.2 Palpitations; E78.5 Hyperlipidemia, unspecified; I10 Essential (primary) hypertension; G47.33 Obstructive sleep apnea (adult) (pediatric); Z87.898 Personal history of other specified conditions
CPT/HCPCS: 78452; 93017; 93306; 93880; A9502; G0399; J2785

== ENCOUNTER → 2021-05-11 14:15 | Outpatient (CLI) | payer MEDICARE, MEDICAID, SELFPAY ==
[2021-05-11 14:47] LABS: Basophils # 0.1 K/mm3 (0-0.2); Basophils % 0.6 % (0.1-2.0); Hematocrit 43.1 % (37.0-47.0); Hemoglobin 13.9 g/dL (12.2-16.2); Lymphocytes # 2.2 K/mm3 (0.7-4.5); Lymphocytes % 31.2 % (10-50); Mean Corpuscular HGB Conc 32.3 g/dL (31.8-35.4); Mean Corpuscular Hemoglobin 29.2 pg (27.0-31.2); Mean Corpuscular Volume 90.3 fl (81-99); Mean Platelet Volume 10.1 fl (7.4-10.4); Monocytes # 0.3 K/mm3 (0.1-1.0); Monocytes % 4.6 % (1.7-9.3); Neutrophils # 4.5 K/mm3 (1.8-7.8); Neutrophils % 63.5 % (37.0-80.0); Platelet Count 385 K/mm3 (142-424); Red Blood Count 4.77 M/mm3 (4.20-5.40); Red Cell Distribution Width 13.5 % (11.5-17.5); White Blood Count 7.2 K/mm3 (4.8-10.8)
[2021-05-11 15:29] LABS: Erythrocyte Sedimentation Rate 18 mm/hr (0-30)
[2021-05-11 16:35] LABS: Alanine Aminotransferase 14 U/L (12-78); Albumin Level 4.5 g/dl (3.5-5.0); Albumin/Globulin Ratio 1.4 (1.1-1.8); Alkaline Phosphatase 108 U/L (38-126); Anion Gap 15.1 mEq/L (5-15); Aspartate Amino Transferase 22 U/L (14-36); Bilirubin,Total 0.6 mg/dl (0.2-1.3); Blood Urea Nitrogen 7 mg/dl (7-17); Calcium 9.6 mg/dl (8.4-10.2); Carbon Dioxide 25 mmol/L (22.0-30.0); Chloride 106 mmol/L (98-107); Estimated Glomerular Filt Rate 75 ml/min (>60); GFR (African American) 90 ML/MIN (>60); Globulin 3.3 g/dL (1.3-3.2); Glucose 103 mg/dl (74-100); Potassium 4.1 mmoL/L (3.5-5.1); Sodium 142 mmol/L (136-145); Total Protein,Serum 7.8 g/dl (6.3-8.2)
[2021-05-11 16:44] LABS: C-Reactive Protein 0.4 mg/L (0-4)
[2021-05-13 09:08] LABS: RA Latex Turbid. 10.2 IU/mL (0.0-13.9)
[2021-05-13 18:28] LABS: Anti-Centromere B Antibodies <0.2 AI (0.0-0.9); Anti-DNA (DS) Ab Qn 12 IU/mL (0-9); Anti-Jo-1 <0.2 AI (0.0-0.9); Anti-Smith Antibody <0.2 AI (0.0-0.9); Antichromatin Antibodies <0.2 AI (0.0-0.9); Antiscleroderma-70 Antibodies <0.2 AI (0.0-0.9); RNP Antibodies 0.5 AI (0.0-0.9); Sjogren's Anti-SS-A <0.2 AI (0.0-0.9); Sjogren's Anti-SS-B <0.2 AI (0.0-0.9)
[2021-05-14 00:08] LABS: Anti-Cyclic Citrullinated Pept 10 units (0-19)
== END ==
PROVIDERS: Visit Provider Emergency Medicine
DX: R53.83 Other fatigue (principal); G47.33 Obstructive sleep apnea (adult) (pediatric)
CPT/HCPCS: 80053; 85025; 85651; 86140; 86200; 86225; 86235; 86431

== ENCOUNTER 2021-06-01 11:01 | Observation (INO) | payer MEDICARE, MEDICAID, SELFPAY ==
[2021-06-01] VITALS (21 sets, daily range): BP systolic 107–147; BP diastolic 57–86; PULSE 48–80; RESP 12–20; TEMP 36.6–37; O2SAT 95–100; BMI 25.3; BMI 25.7
--- NOTE | 2021-06-01 | IR_ITS ---
APPROVED REPORT Patient Location: Emergent Diamond Sawer: JAKE Vasquez RT (R) PROCEDURES Left heart catheterization Left ventriculogram Selective coronary angiogram INDICATION Unstable angina Informed consent was obtained prior to the procedure. COMPLICATIONS NONE Estimated Blood Loss: LESS THAN 10 ML TECHNIQUE One percent lidocaine used to anesthetize the right anterior aspect of the wrist. The right radial artery was accessed via the Seldinger technique. A 6 Macanese sheath was placed in the right radial artery. 2.5 mg of verapamil, 800 mcg of nitroglycerin, 1mg Lidocaine and 5000 U Heparin were given through the arterial sheath. The Poppa catheter was also used to perform left heart catheterization, left ventriculogram and selective coronary angiogram. At the end of the procedure the sheath was removed good hemostasis was achieved using Traclet band, patient was transferred to the postop holding area in stable condition. ANGIOGRAPHIC RESULTS The left main artery Normal The left anterior descending artery Normal The circumflex artery Codominant normal The right coronary artery Codominant normal The SOLIMAN ventriculogram reveals Normal 65% The left ventricular end-diastolic pressure 10 mmHg IMPRESSION Normal coronary arteries Normal ejection fraction Normal left ventricular end-diastolic pressure PLAN 1. Evaluation of noncardiac chest pain Electronically signed by : Syed Gallagher MD 06/01/2021 13:38:17
--- NOTE | 2021-06-01 11:01 | ECG_ITS ---
APPROVED REPORT Exam: Resting ECG HR:54 bpm ECG Measurements Heart Rate 54 AXES QRSd 72 QRS 59 QT 432 T 41 QTc 409 Conclusion Junctional rhythm Abnormal ECG Electronically signed by : Christophe Villarreal MD 06/01/2021 20:14:51
--- NOTE | 2021-06-01 11:09 | XR_ITS ---
PROCEDURE: XR CHEST 2V CLINICAL HISTORY: CP COMPARISON: No exams were available for comparison FINDINGS: The cardiomediastinal silhouette and pulmonary vascularity are within normal limits. Lungs are clear. Bone plate along the lower cervical spine. Degenerative changes of the spine IMPRESSION: No acute findings. Dictated by: Nahum Silverman MD 06/01/2021 12:50 Nahum Silverman MD in [place] 06/01/2021 12:50
[2021-06-01 11:17] LABS: Basophils % 0.6 % (0.1-2.0); Eosinophils % 0.1 % (0.1-12.0); Hematocrit 41.7 % (37.0-47.0); Hemoglobin 13.9 g/dL (12.2-16.2); Lymphocytes # 2.5 K/mm3 (0.7-4.5); Lymphocytes % 38.2 % (10-50); Mean Corpuscular HGB Conc 33.4 g/dL (31.8-35.4); Mean Corpuscular Hemoglobin 29.1 pg (27.0-31.2); Mean Platelet Volume 8.5 fl (7.4-10.4); Monocytes # 0.2 K/mm3 (0.1-1.0); Monocytes % 3.2 % (1.7-9.3); Neutrophils # 3.8 K/mm3 (1.8-7.8); Neutrophils % 57.9 % (37.0-80.0); Platelet Count 397 K/mm3 (142-424); Red Blood Count 4.79 M/mm3 (4.20-5.40); Red Cell Distribution Width 13.4 % (11.5-17.5); White Blood Count 6.6 K/mm3 (4.8-10.8)
[2021-06-01 11:24] LABS: Coronavirus 19, PCR Not Detected (NotDetected); Influenza A, PCR Not Detected (NotDetected); Influenza B, PCR Not Detected (NotDetected)
[2021-06-01 11:26] LABS: Chloride 97 mmol/L (98-107); Potassium 3.5 mmoL/L (3.5-5.1); Sodium 137 mmol/L (136-145)
[2021-06-01 11:29] LABS: Anion Gap 12.5 mEq/L (5-15); Blood Urea Nitrogen 13 mg/dl (7-17); Calcium 9.7 mg/dl (8.4-10.2); Carbon Dioxide 31 mmol/L (22.0-30.0); Creatinine Clearance Estimated 83 mL/min (50-200); Estimated Glomerular Filt Rate 65 ml/min (>60); GFR (African American) 79 ML/MIN (>60); Glucose 106 mg/dl (74-100)
[2021-06-01 11:44] LABS: Troponin I < 0.01 ng/ml (0.00-0.034)
--- NOTE | 2021-06-01 12:43 | PC.NURSE ---
MARCELA HERE TO SEE PT
--- NOTE | 2021-06-01 12:48 | HMH.CNCARD ---
History of Present Illness Consult date: 06/01/21 Requesting physician: Mayito Mathur Consult reason: chest pain Chief complaint: chest pain Additional Medical History:: Echo 03/2021 shows: 1. Mildly enlarged left atrium, normal left ventricular size, visually estimated ejection fraction 55% with no regional wall motion abnormality diastolic parameters are within normal range. 2. Trace mitral and tricuspid regurgitation, calculated right ventricular systolic pressure 32 mmHg. 3. No significant pericardial effusion noted. Myoview 03/2021 shows: 1. The EKG portion of the Lexiscan is nondiagnostic. 2. No scintigraphic evidence of reversible ischemia seen, computer derived ejection fraction is 48% with no regional wall motion abnormality, right ventricle is normal size and contractility. 3. Normal Lexiscan Myoview study. History of present illness: This is a 56-year-old white female who presented to the emergency department with complaints of chest pain. She states that she woke up and has been having pain in her bilateral neck down between her shoulder blades and into the substernal aspect of her chest. She states that this is a pressure sensation. The patient reports that I just do not feel right and she has felt like this all day. She states that this is associated with shortness of breath and nausea and diaphoresis. The patient reports that she can even walk to the bathroom at her house without having severe symptoms. She states that her symptoms continued to progressively worsen and that is why she decided to come to the emergency department. The patient denies any fever, chills, vomiting, diarrhea, PND or orthopnea. She states that the symptoms are severe and do improve with rest. [facility] History I have reviewed the patient's past medical history: Yes Medical History: Reports:: Anxiety, Depression, Hyperlipidemia Denies:: Cancer, Diabetes Mellitus Type 1, Diabetes Mellitus Type 2, Internal Pacemaker, MRSA *Have you ever received a pneumonia vaccine?: Yes *Have you received a flu vaccine this season?: Yes Other Medical History: Reports: Anemia, Arthritis, Other Laterality Cases: Left: Arthroscopy Shoulder, Carpal Tunnel Release Other Surgeries: Yes: No Previous Surgery, Colonoscopy, Hysterectomy-Partial, Tubal Ligation, Other. No: Pacemaker Amputation: No Fractures: Yes (jaw fx, lt knee cap fx) - *Social History Smoking Status: Former smoker #Yrs smoked (if former smoker): 15 Alcohol Intake: current Alcohol Intake Frequency:: holidays/special occasions only Substance Use Type: denies use *Occupational Status:: other Housing: house Household Members: other *Travel in the last 8 weeks: None - Psychiatric History Pschychiatric History:: Reports:: Anxiety, Depression Family Hx:: Cancer Meds Home Medications Medication Instructions Recorded Confirmed Type clonidine HCl 0.1 mg tablet 0.1 mg PO QHS tab 04/17/20 05/11/21 History hydrochlorothiazide 12.5 mg tablet 12.5 mg PO DAILY 90 Days #90 tab 03/19/21 05/11/21 Rx metoprolol tartrate 50 mg tablet 50 mg PO BID #60 tab 03/24/21 05/11/21 Rx buprenorphine HCl 8 mg sublingual 8 mg SUBLINGUAL DAILY 05/01/21 05/11/21 History tablet alprazolam 0.5 mg tablet 0.5 mg PO BID #60 tab 05/11/21 05/11/21 Rx gabapentin 600 mg tablet 600 mg PO QID #120 tab 05/11/21 05/11/21 Rx methylprednisolone 4 mg tablets in See Rx Instructions PO PER PKG DIR 05/11/21 05/11/21 Rx a dose pack #21 tab Allergies Allergy/AdvReac Type Severity Reaction Status Date / Time codeine Allergy Verified 05/11/21 11:05 morphine Allergy Verified 05/11/21 11:05 paroxetine [From Paxil] Allergy Verified 05/11/21 11:05 Exam Vital signs and Labs for Last 24 Hours: Temp Pulse Resp BP Pulse Ox 98.4 F 48 L 13 113/73 96 06/01/21 11:01 06/01/21 11:30 06/01/21 11:30 06/01/21 11:30 06/01/21 11:30 Laboratory Results - last 24 hr 06/01/21 11:05: WBC 6.6, RBC 4.79, Hgb 13.9, Hc
--- NOTE | 2021-06-01 13:02 | HMH.EDGENADL ---
ED Disposition Clinical Impression: Chest pain Qualifiers: Chest pain type: unspecified Qualified Code(s): R07.9 - Chest pain, unspecified Disposition: Admitted As Inpatient Condition on Discharge: Fair Referrals: Albert Oliveros MD [Primary Care Provider] - Time of Disposition: 13:08 - Critical Care Critical Care Time: No Attestation: On 06/01/21, the high probability of a clinically significant, sudden or life threatening deterioration of the following system(s) required my full and direct attention, intervention and personal management. The time I documented below is in addition to time spent performing reported procedures but includes the following listed in this critical care notation. Medical Decision Making - Medical Records Medical records reviewed: Yes: I reviewed the patient's medical records. - [place] Inquiry Pt receiving controlled substance: No Vital Signs: 06/01/21 11:01 06/01/21 11:30 Temperature 98.4 F Temperature Source Oral Pulse Rate 48 L Pulse Rate [Right Radial] 53 L Respiratory Rate 12 13 Blood Pressure 113/73 Blood Pressure [Right Arm] 117/73 Blood Pressure Mean 80 Blood Pressure Mean [Right Arm] 87 Blood Pressure Source [Right Arm] Automatic Cuff Blood Pressure Position [Right Arm] Sitting 02 Sat by Pulse Oximetry 98 96 Oxygen Delivery Method Room Air - Lab Data Lab results reviewed: Yes: I reviewed the patient's lab results. Lab Results 06/01/21 11:05: WBC 6.6, RBC 4.79, Hgb 13.9, Hct 41.7, MCV 87.0, MCH 29.1, MCHC 33.4, RDW 13.4, Plt Count 397, MPV 8.5, Neut % (Auto) 57.9, Lymph % (Auto) 38.2, [place] % (Auto) 3.2, Eos % (Auto) 0.1, Baso % (Auto) 0.6, Neut # (Auto) 3.8, Lymph # (Auto) 2.5, [place] # (Auto) 0.2, Eos # (Auto) 0.0, Baso # (Auto) 0.0 06/01/21 11:05: Sodium 137, Potassium 3.5, Chloride 97 L, Carbon Dioxide 31 H, Anion Gap 12.5, BUN 13, Creatinine 0.90, Estimated Creat Clear 83, Estimated GFR 65, Est GFR ( Amer) 79, Glucose 106 H, Calcium 9.7, Troponin I < 0.01 06/01/21 11:15: SARS-CoV-2 (PCR) Not detected, Influenza A Untype (PCR) Not detected, Influenza Type B (PCR) Not detected Result diagrams: 06/01/21 11:05 06/01/21 11:05 Orders (Tests/Meds): ED MEDICATIONS Generic Name Dose Route Start Last Admin Trade Name Freq PRN Reason Stop Dose Admin Fentanyl Citrate 25 mcg 06/01/21 12:44 Fentanyl 100mcg/2ml Vial IV 06/02/21 12:44 Q3MINP PRN Moderate to Severe Pain Fentanyl Citrate 50 mcg 06/01/21 12:44 Fentanyl 100mcg/2ml Vial IV 06/02/21 12:44 Q3MINP PRN Moderate to Severe Pain Fentanyl Citrate 25 mcg 06/01/21 12:44 Fentanyl 250mcg/5ml Vial IV 06/02/21 12:44 Q3MINP PRN Moderate to Severe Pain Fentanyl Citrate 50 mcg 06/01/21 12:44 Fentanyl 250mcg/5ml Vial IV 06/02/21 12:44 Q3MINP PRN Moderate to Severe Pain Flumazenil 0.2 mg 06/01/21 12:44 Flumazenil 0.1mg/Ml 5ml Vial IV 06/01/21 23:00 NEEDED PRN Sedation Heparin Sodium (Porcine) 10,000 unit 06/01/21 12:44 06/01/21 12:56 Heparin 1,000 Units/Ml 10ml Vial (Master At Arms) IV 06/01/21 16:44 5,000 unit NEEDED PRN Administration Emergency Box Expeller Worker Sodium Chloride 1,000 mls @ 25 mls/hr 06/01/21 12:45 06/01/21 12:57 Sod Chlor 0.9% 1000ml Bag IV 06/02/21 12:44 25 mls/hr .Q25H NISHA Administration Midazolam HCl 1 mg 06/01/21 12:44 Midazolam 2mg/2ml Vial IV 06/02/21 12:44 Q3MINP PRN Sedation Midazolam HCl 1 mg 06/01/21 12:44 Midazolam Hcl 1mg/1ml 5ml Vial IV 06/02/21 12:44 Q3MINP PRN Sedation Naloxone HCl 0.4 mg 06/01/21 12:44 Naloxone 0.4mg/Ml Vial IV 06/02/21 12:44 Q5MINP PRN Decreased Respirations Nitroglycerin 800 mcg 06/01/21 12:44 06/01/21 12:56 Nitroglycerin 800mcg/8ml Syr (Master At Arms) IV 06/02/21 12:44 800 mcg NEEDED PRN Administration Emergency Box Expeller Worker Discontinued Medications Generic Name Dose Route S
--- NOTE | 2021-06-01 13:02 | PC.NURSE ---
Pt to pathology laboratory aides teacher at this time
--- NOTE | 2021-06-01 14:30 | CT_ITS ---
PROCEDURE: CT ANGIO CHEST PE PROTOCOL CLINCIAL INDICATION: chest pain, soa COMPARISON: CT CT ABDOMEN PELVIS WO CON from 03/15/2021 CR XR CHEST 2V from 06/01/2021 TECHNIQUE: IV Contrast: 70ML Isovue 370 Axial images obtained with sagittal and coronal reformats. All CT scans at the facility use one or more dose reduction, viz: automated exposure control, ma/kV adjustment per patient size (including targeted exams where dose is matched to indication, i.e. head), or iterative reconstruction technique. FINDINGS: HEART AND MEDIASTINAL STRUCTURES: No evidence of aortic aneurysm or dissection. No evidence of pulmonary embolus. Coronary artery calcifications are noted. LUNGS AND PLEURAL SPACES: No lobar consolidation or collapse. There are dependent changes posteriorly. No effusions. BONY STRUCTURES: Degenerative change thoracic spine UPPER ABDOMEN: There are at least 4 hepatic hypodensities the largest in the left hepatic lobe segment 4 B at 2.5 cm which may represent hepatic cysts ADDITIONAL FINDINGS: No other significant abnormalities. IMPRESSION: No acute finding Dictated by: Nahum Silverman MD 06/01/2021 16:38 Nahum Silverman MD in [place] 06/01/2021 16:38
--- NOTE | 2021-06-01 18:17 | PC.NURSE ---
Radialband removed as follows: 1540: 2mls removed, 16 mls left 1555: 2mls removed, 14 mls left 1610: 2mls removed, 12 mls left 1625: 2mls removed, 10 mls left 1640: 2mls removed, 8 mls left 1710: 2mls removed, 6 mls left 1730: radialband removed, telfa and tegaderm placed; no signs/symptoms of hematoma;
--- NOTE | 2021-06-01 18:22 | PC.NURSE ---
Pt is alert and oriented x4. Lungs are clear, bowel sounds active x4. She is s/p left heart cath. Radialband has been removed and telfa w/tegaderm in place. No drainage noted. She reports having some occasional chest pain/pressure that extends into her throat. She has been NSR/SB on telemetry. HR has been as low as mid 40's - mid 70's. She ambulates independently. Family is at bedside and supportive.
[2021-06-02] VITALS: PULSE 50
[2021-06-02 04:00] VITALS: BP 117/68; PULSE 57; PULSE 70; RESP 16; TEMP 36.6; O2SAT 95
[2021-06-02 04:41] VITALS: BMI 25.9
[2021-06-02 07:10] LABS: Anion Gap 8.7 mEq/L (5-15); Blood Urea Nitrogen 14 mg/dl (7-17); Calcium 9.1 mg/dl (8.4-10.2); Carbon Dioxide 30 mmol/L (22.0-30.0); Chloride 103 mmol/L (98-107); Creatinine Clearance Estimated 95 mL/min (50-200); Estimated Glomerular Filt Rate 75 ml/min (>60); GFR (African American) 90 ML/MIN (>60); Glucose 97 mg/dl (74-100); Potassium 3.7 mmoL/L (3.5-5.1); Sodium 138 mmol/L (136-145)
--- NOTE | 2021-06-02 07:21 | P.CONPHA_ITS ---
[facility] Pharmacy VTE Monitoring - Patient Demographics Admission date: 06/01/21 Report Date: 06/02/21 Time: 07:21 Allergies/Adverse Reactions: Patient Allergies codeine Allergy (Verified 05/11/21 11:05) morphine Allergy (Verified 05/11/21 11:05) paroxetine [From Paxil] Allergy (Verified 05/11/21 11:05) Height: 1.7 m Weight: 74.843 kg Patient Problems: Current Active Problems Unstable angina (Acute) Shortness of breath (Acute) HTN (hypertension) (Chronic) HLD (hyperlipidemia) (Chronic) Palpitations (Chronic) Chest pain (Acute) Nausea (Acute) - VTE Risk Labs: VTE Related Lab Results Hgb 13.9 g/dL (12.2-16.2) 06/01/21 11:05 Hct 41.7 % (37.0-47.0) 06/01/21 11:05 Plt Count 397 K/mm3 (142-424) 06/01/21 11:05 BUN 14 mg/dl (7-17) 06/02/21 06:07 Creatinine 0.80 mg/dl (0.52-1.04) 06/02/21 06:07 Estimated Creat Clear 95 mL/min (50-200) 06/02/21 06:07 Was VTE Risk Assessment Performed: Yes VTE Score: 6 VTE Risk Level: Moderate Risk Clinical Trial Participant: No - Prophylaxis VTE Prophylaxis Ordered?: Yes Types of VTE Prophylaxis: TEDS Knee High
--- NOTE | 2021-06-02 07:29 | HMH.PHAINT ---
verified home medication list with clinic pharmacy
[2021-06-02 07:32] LABS: Basophils % 0.3 % (0.1-2.0); Eosinophils % 0.1 % (0.1-12.0); Hematocrit 42.9 % (37.0-47.0); Hemoglobin 13.5 g/dL (12.2-16.2); Lymphocytes # 2.3 K/mm3 (0.7-4.5); Lymphocytes % 49.2 % (10-50); Mean Corpuscular HGB Conc 31.5 g/dL (31.8-35.4); Mean Corpuscular Hemoglobin 28.7 pg (27.0-31.2); Mean Corpuscular Volume 91.2 fl (81-99); Mean Platelet Volume 7.8 fl (7.4-10.4); Monocytes # 0.3 K/mm3 (0.1-1.0); Monocytes % 6.8 % (1.7-9.3); Neutrophils % 43.6 % (37.0-80.0); Platelet Count 310 K/mm3 (142-424); White Blood Count 4.7 K/mm3 (4.8-10.8)
[2021-06-02 08:00] VITALS: BP 127/70; PULSE 65; PULSE 68; RESP 14; TEMP 36.6; O2SAT 100
[2021-06-02 11:43] VITALS: BP 101/63; PULSE 56; RESP 15; TEMP 36.9; O2SAT 97
[2021-06-02 12:00] VITALS: PULSE 60
--- NOTE | 2021-06-02 13:46 | PC.NURSE ---
Left message with Sid Plummer RN that pt reports feeling extremely anxious and thought she was having a panic attack. She called back with an order for 0.5mg po xanax once for patient. Read back and verified.
--- NOTE | 2021-06-02 13:56 | HMH.DCSUM ---
General - General Admission date:: 06/01/21 Discharge date: 06/02/21 Objective Vital signs: Temp Pulse Resp BP Pulse Ox 98.5 F 56 L 15 101/63 L 97 06/02/21 11:43 06/02/21 11:43 06/02/21 11:43 06/02/21 11:43 06/02/21 11:43 Results Labs on day of discharge: Labs from last 24 hours 06/02/21 06/02/21 06:07 06:07 WBC 4.7 L D RBC 4.70 Hgb 13.5 Hct 42.9 MCV 91.2 MCH 28.7 MCHC 31.5 L RDW 13.0 Plt Count 310 MPV 7.8 Neut % (Auto) 43.6 Lymph % (Auto) 49.2 [place] % (Auto) 6.8 Eos % (Auto) 0.1 Baso % (Auto) 0.3 Neut # (Auto) 2.0 Lymph # (Auto) 2.3 [place] # (Auto) 0.3 Eos # (Auto) 0.0 Baso # (Auto) 0.0 Sodium 138 Potassium 3.7 Chloride 103 Carbon Dioxide 30 Anion Gap 8.7 BUN 14 Creatinine 0.80 Estimated Creat Clear 95 Estimated GFR 75 Est GFR ( Amer) 90 Glucose 97 Calcium 9.1 DS: Diagnosis - Discharge Diagnosis (1) Unstable angina Status: Acute (2) Nausea Status: Acute (3) HLD (hyperlipidemia) Status: Chronic (4) HTN (hypertension) Status: Chronic (5) Palpitations Status: Chronic (6) Shortness of breath Status: Acute Discharge Plan - Patient Discharge Instructions Patient Instructions: DI for Cardiac Catheterization, DI for Surgical Site Infection - Follow up Plan Follow up with: Albert Oliveros MD [Primary Care Provider] - Home Medications: Home Medications Medication Instructions Recorded Confirmed Type clonidine HCl 0.1 mg tablet 0.1 mg PO HS tab 04/17/20 06/02/21 History hydrochlorothiazide 12.5 mg tablet 12.5 mg PO DAILY 90 Days #90 tab 03/19/21 06/01/21 Rx buprenorphine HCl 8 mg sublingual 2 tab SUBLINGUAL DAILY 05/01/21 06/01/21 History tablet ALPRAZolam [Xanax 0.5mg tab] 0.5 mg PO BID 06/01/21 06/01/21 History Gabapentin 600 mg PO QID 06/01/21 06/01/21 History Metoprolol Tartrate 50 mg PO BID 06/01/21 06/01/21 History Tizanidine HCl [Tizanidine HCl 4 mg PO TID 06/01/21 06/02/21 History 2mg] hydrOXYzine HCL [Hydroxyzine HCl] 25 mg PO TIDP PRN 06/02/21 06/02/21 History Prescriptions/Medication Reconciliation: No Action clonidine HCl 0.1 mg tablet 0.1 mg PO HS tab buprenorphine HCl 8 mg sublingual tablet 2 tab SUBLINGUAL DAILY hydrochlorothiazide 12.5 mg tablet 12.5 mg PO DAILY 90 Days #90 tab Tizanidine HCl [Tizanidine HCl 2mg] 4 mg PO TID ALPRAZolam [Xanax 0.5mg tab] 0.5 mg PO BID Metoprolol Tartrate 50 mg PO BID Gabapentin 600 mg PO QID hydrOXYzine HCL [Hydroxyzine HCl] 25 mg PO TIDP PRN PRN Reason: Anxiety - Problem Reconciliation Problems Reviewed?: Yes
--- NOTE | 2021-06-02 15:01 | HMH.HPDC ---
General - General Admission date:: 06/01/21 Discharge date: 06/02/21 *Admission Date: 06/01/21 *Chief complaint: chest pain *History of present illness: This is a 56-year-old white female who presented to the emergency department with complaints of chest pain. She states that she woke up and has been having pain in her bilateral neck down between her shoulder blades and into the substernal aspect of her chest. She states that this is a pressure sensation. The patient reports that I just do not feel right and she has felt like this all day. She states that this is associated with shortness of breath and nausea and diaphoresis. The patient reports that she can even walk to the bathroom at her house without having severe symptoms. She states that her symptoms continued to progressively worsen and that is why she decided to come to the emergency department. The patient denies any fever, chills, vomiting, diarrhea, PND or orthopnea. She states that the symptoms are severe and do improve with rest. per cardiology [facility] History I have reviewed the patient's past medical history: Yes Medical History: Reports:: Anxiety, Depression, Hyperlipidemia, Hypertension Denies:: Cancer, Diabetes Mellitus Type 1, Diabetes Mellitus Type 2, Internal Pacemaker, MRSA *Have you ever received a pneumonia vaccine?: Yes *Have you received a flu vaccine this season?: Yes Other Medical History: Reports: Anemia, Arthritis, Other Laterality Cases: Left: Arthroscopy Shoulder, Carpal Tunnel Release Other Surgeries: Yes: No Previous Surgery, Cardiac Catheterization, Colonoscopy, Hysterectomy-Partial, Tubal Ligation, Other. No: Pacemaker Amputation: No Fractures: Yes (jaw fx, lt knee cap fx) - *Social History Last grade of school completed: High school graduate Smoking Status: Former smoker #Yrs smoked (if former smoker): 15 Alcohol Intake: never Alcohol Intake Frequency:: holidays/special occasions only Substance Use Type: denies use *Occupational Status:: disabled Housing: other Household Members: none *Travel in the last 8 weeks: None - Psychiatric History Pschychiatric History:: Reports:: Anxiety, Depression Family Hx:: Cancer Review of Systems - Review of Systems Review of systems:: pertinent systems reviewed and negative unless documented below - Constitutional Denies body ache(s), Denies lack of energy - Eyes Denies blurry vision - ENT Denies ear pain - *Cardiovascular Reports chest pain, Reports chest pain at rest, Reports chest pain with activity, Reports other, Denies lightheadedness - *Respiratory Denies change in phlegm color - *Gastrointestinal Denies abdominal pain - *Genitourinary Denies abnormal periods - *Musculoskeletal Denies joint pain - Integumentary/Breasts Denies bleeding lesions - *Neurologic Denies abnormal hearing - Psychiatric Reports anxiety, Denies lack of enjoyment - Endocrine Denies excessive sweating - Hematologic/Lymphatic Denies easy bruising - Allergic/Immunologic Denies GI upset with certain foods Exam Vital signs and Labs for Last 24 Hours: Temp Pulse Resp BP Pulse Ox 98.5 F 56 L 15 101/63 L 97 06/02/21 11:43 06/02/21 11:43 06/02/21 11:43 06/02/21 11:43 06/02/21 11:43 Laboratory Results - last 24 hr 06/02/21 06:07: WBC 4.7 L D, RBC 4.70, Hgb 13.5, Hct 42.9, MCV 91.2, MCH 28.7, MCHC 31.5 L, RDW 13.0, Plt Count 310, MPV 7.8, Neut % (Auto) 43.6, Lymph % (Auto) 49.2, [place] % (Auto) 6.8, Eos % (Auto) 0.1, Baso % (Auto) 0.3, Neut # (Auto) 2.0, Lymph # (Auto) 2.3, [place] # (Auto) 0.3, Eos # (Auto) 0.0, Baso # (Auto) 0.0 06/02/21 06:07: Sodium 138, Potassium 3.7, Chloride 103, Carbon Dioxide 30, Anion Gap 8.7, BUN 14, Creatinine 0.80, Estimated Creat Clear 95, Estimated GFR 75, Est GFR ( Amer) 90, Glucose 97, Calcium 9.1 I & O for Last 24 hours: Intake & Output 05/31/21 06/01/21 06/02/21 06/03/21 11:59 11:59 11:59 11:59 Intake Total 600 / 600 240 / 240
== END 2021-06-02 16:12 | disposition home or self-care (01) ==
LOC: ER 13:08 → CATHLAB 14:14 → 2ND 14:16
PROVIDERS: Admitting Provider Emergency Medicine; Emergency Provider Family Medicine; PCP Emergency Medicine; Visit Provider Internal Medicine
DX: I20.8 Other forms of angina pectoris (principal); I10 Essential (primary) hypertension; E78.5 Hyperlipidemia, unspecified; Z79.899 Other long term (current) drug therapy; Z88.8 Allergy status to other drugs, medicaments and biological substances; R06.02 Shortness of breath
CPT/HCPCS: G0378; 36415; 71046; 71275; 80048; 84484; 85025; 93005; 93458; 99152; 99284; C1725; C1769; C9803; J1644; Q9967; U0003; U0005

== ENCOUNTER 2021-07-12 13:41 | Observation (INO) | payer MEDICARE, MEDICAID, SELFPAY ==
[2021-07-12] VITALS (16 sets, daily range): BP systolic 96–138; BP diastolic 61–88; PULSE 50–66; RESP 10–16; TEMP 36.8; O2SAT 94–98; BMI 24.3; BMI 24.8
--- NOTE | 2021-07-12 13:56 | ECG_ITS ---
APPROVED REPORT Exam: Resting ECG HR:61 bpm ECG Measurements Heart Rate 61 AXES IL 134 P 48 QRSd 80 QRS 48 QT 414 T 49 QTc 416 Conclusion Normal sinus rhythm Normal ECG Electronically signed by : Christophe Villarreal MD 07/13/2021 17:57:00
--- NOTE | 2021-07-12 14:01 | PC.NURSE ---
After speaking patient and SO and watching how patient was acting decided to do stroke protocol at this time. Notified Rad. PT has no deficits but her speech is sluggish and slow, SO advised she was having some trouble remembering things.
--- NOTE | 2021-07-12 14:06 | PC.NURSE ---
Going to radiology.
--- NOTE | 2021-07-12 14:07 | CT_ITS ---
PROCEDURE: CT HEAD/BRAIN WO CON CLINICAL INDICATION: stroke protocol COMPARISON: No exams were available for comparison TECHNIQUE: Axial images obtained. All CT scans at the facility use one or more dose reduction, viz: automated exposure control, ma/kV adjustment per patient size (including targeted exams where dose is matched to indication, i.e. head), or iterative reconstruction technique. FINDINGS: No midline shift, mass effect, intracranial hemorrhage, hydrocephalus, or extra-axial fluid collection is evident. The calvarium has an unremarkable appearance. No mastoid effusion. There is moderate mucosal thickening of the ethmoid sinuses, the right maxillary sinus, and the right aspect of the sphenoid sinus. There is an air-fluid level in the right maxillary sinus. IMPRESSION: No acute intracranial findings. Paranasal sinus disease Dictated by: Nahum Silverman MD 07/12/2021 14:24 Nahum Silverman MD in [place] 07/12/2021 14:24
--- NOTE | 2021-07-12 14:12 | XR_ITS ---
PROCEDURE: XR CHEST 2V CLINICAL HISTORY: STROKE PROTOCOL COMPARISON: No exams were available for comparison FINDINGS: The cardiomediastinal silhouette and pulmonary vascularity are within normal limits. The lungs are clear without infiltrates, suspicious nodules, or pleural effusions. No acute bony abnormalities. Lower cervical bone plate present. Degenerative changes thoracic with multilevel anterior syndesmophytes IMPRESSION: No acute findings. Dictated by: Nahum Silverman MD 07/12/2021 16:00 Nahum Silverman MD in [facility] 07/12/2021 16:00
[2021-07-12 14:18] LABS: Basophils % 0.2 % (0.1-2.0); Eosinophils % 0.1 % (0.1-12.0); Hematocrit 38.3 % (37.0-47.0); Hemoglobin 12.7 g/dL (12.2-16.2); Lymphocytes # 2.3 K/mm3 (0.7-4.5); Lymphocytes % 36.3 % (10-50); Mean Corpuscular Hemoglobin 28.9 pg (27.0-31.2); Mean Corpuscular Volume 87.6 fl (81-99); Mean Platelet Volume 7.4 fl (7.4-10.4); Monocytes # 0.3 K/mm3 (0.1-1.0); Monocytes % 4.1 % (1.7-9.3); Neutrophils # 3.8 K/mm3 (1.8-7.8); Neutrophils % 59.3 % (37.0-80.0); Platelet Count 385 K/mm3 (142-424); Red Blood Count 4.38 M/mm3 (4.20-5.40); Red Cell Distribution Width 13.3 % (11.5-17.5); White Blood Count 6.4 K/mm3 (4.8-10.8)
--- NOTE | 2021-07-12 14:18 | CT_ITS ---
Procedure: CT ANGIO NECK CT angio head CLINICAL HISTORY: AMS COMPARISON: No exams were available for comparison TECHNIQUE: IV Contrast: 100ml Isovue 370 Axial images obtained with sagittal and coronal reformats. All CT scans at the facility use one or more dose reduction, viz: automated exposure control, ma/kV adjustment per patient size (including targeted exams where dose is matched to indication, i.e. head), or iterative reconstruction technique. FINDINGS: CTA neck: The common carotid and internal carotid arteries have an unremarkable appearance. No stenosis or dissection. Unremarkable reportable some CTA head: Small aneurysm projects off the posterior aspect of the anterior clinoid portion of the left internal carotid artery measuring approximately 3 x 2 mm.. The aneurysm projects posteriorly and inferiorly. A band like lucency is noted through the junction of the cavernous and clinoid portion of the left internal carotid artery. This however may represent an artifact from the skull base. No other significant anomalies are apparent. No major intracranial occlusive process. No AVM apparent. There is a lucency in the central aspect of the basilar artery which has a fenestrated appearance.. No enhancing lesions are evident. Paranasal sinus disease is once again noted. This involves the ethmoid sinuses and right maxillary sinus with an air-fluid level in the right maxillary sinus. Prominent soft tissue density in the posterior nasal canal with continuation into the right aspect of the sphenoid sinus. A polyp is a consideration. Follow-up may confirm stability. IMPRESSION: 1. 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 Lucency through the cavernous and clinoid portion of the left internal carotid artery may represent an artifact and could be confirmed with follow-up. 3. 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 Differential diagnosis includes a focal dissection with a small raised flap. 4. Paranasal sinus disease. Dictated by: Nahum Silverman MD 07/12/2021 15:57 Nahum Silverman MD in [place] 07/12/2021 15:57
[2021-07-12 14:26] LABS: Alanine Aminotransferase 15 U/L (12-78); Albumin Level 4.2 g/dl (3.5-5.0); Albumin/Globulin Ratio 1.5 (1.1-1.8); Alkaline Phosphatase 87 U/L (38-126); Anion Gap 8.1 mEq/L (5-15); Aspartate Amino Transferase 23 U/L (14-36); Bilirubin,Total 0.4 mg/dl (0.2-1.3); Blood Urea Nitrogen 14 mg/dl (7-17); Calcium 9.3 mg/dl (8.4-10.2); Carbon Dioxide 33 mmol/L (22.0-30.0); Chloride 99 mmol/L (98-107); Creatinine Clearance Estimated 82 mL/min (50-200); Estimated Glomerular Filt Rate 65 ml/min (>60); GFR (African American) 79 ML/MIN (>60); Globulin 2.8 g/dL (1.3-3.2); Glucose 102 mg/dl (74-100); Potassium 4.1 mmoL/L (3.5-5.1); Sodium 136 mmol/L (136-145)
[2021-07-12 14:50] LABS: Microscopic, Urine URINE MICROSCOPIC (MICROSCOPIC)
[2021-07-12 14:52] LABS: Coronavirus 19, PCR Not Detected (NotDetected); Influenza A, PCR Not Detected (NotDetected); Influenza B, PCR Not Detected (NotDetected)
[2021-07-12 15:04] LABS: VBG HCO3 26.5 mmol/L (23-30); VBG Oxygen Saturation 89.5 % (50-70); VBG PCO2 47.9 mmol/L (35-51); VBG PH 7.36 mmol/L (7.31-7.41); VBG PO2 57.6 mmol/L (28-40); VBG Total CO2 27.9 mmol/L (23-27)
[2021-07-12 15:30] LABS: Appearance,Urine CLEAR (Clear); Bilirubin,Urine Negative (Negative); Blood, Urine Negative (Negative); Color,Urine YELLOW (Yellow); Glucose,Urine (UA) Negative (Negative); Ketones,Urine Negative (Negative); Leukocyte Esterase,Urine Negative (Negative); Nitrate,Urine Negative (Negative); Protein,Urine Negative (Negative); Urobilinogen,Urine 0.2 EU/dl (0.2)
[2021-07-12 15:39] LABS: Amphetamine/Metha Screen,Urine Negative ng/ml (<1000); Benzodiazepines Screen,Urine Positive ng/ml (<200)
[2021-07-12 15:40] LABS: Barbiturates Screen,Urine Negative ng/ml (<200); Cannabinoid Screen,Urine Positive ng/ml (<50); Squamous Epithelial Cell,Urine Occasional #/hpf (0-5)
[2021-07-12 15:41] LABS: Cocaine Screen,Urine Negative ng/ml (<300)
[2021-07-12 15:42] LABS: Methadone Screen,Urine Negative ng/ml (<300); Phencyclidine Screen,Urine Negative ng/ml (<25)
[2021-07-12 15:43] LABS: Opiate Screen,Urine Negative ng/ml (<300)
--- NOTE | 2021-07-12 15:50 | PC.NURSE ---
Notified resp of VBG and blood was in the lab
[2021-07-12 16:05] LABS: Ethyl Alcohol < 10 mg/dl (0-10)
[2021-07-12 16:17] LABS: Acetaminophen < 10 ug/ml (10-30); Salicylate < 1.0 mg/dL (2.0-20.0)
[2021-07-12 16:18] LABS: Free T4 (Free Thyroxine) 1.02 ng/dl (0.78-2.19)
--- NOTE | 2021-07-12 16:31 | HMH.EDGENADL ---
ED Disposition Clinical Impression: TIA (transient ischemic attack) Clinical Impression: (Ruled Out): Altered mental status Disposition: Admitted as Observation Condition on Discharge: Undetermined - Critical Care Critical Care Time: No Attestation: On 07/12/21, the high probability of a clinically significant, sudden or life threatening deterioration of the following system(s) required my full and direct attention, intervention and personal management. The time I documented below is in addition to time spent performing reported procedures but includes the following listed in this critical care notation. Medical Decision Making - Medical Records Medical records reviewed: Yes: I reviewed the patient's medical records. - [place] Inquiry Pt receiving controlled substance: No Vital Signs: 07/12/21 14:02 07/12/21 15:46 07/12/21 15:48 Temperature 98.3 F Temperature Source Oral Pulse Rate 58 L 58 L Pulse Rate [Right] 66 Respiratory Rate 16 13 12 Blood Pressure 96/61 L 98/64 L Blood Pressure [Right Arm] 110/66 Blood Pressure Mean 67 70 Blood Pressure Mean [Right Arm] 80 Blood Pressure Source [Right Arm] Automatic Cuff Blood Pressure Position [Right Arm] Sitting 02 Sat by Pulse Oximetry 98 95 95 Oxygen Delivery Method Room Air 07/12/21 16:00 07/12/21 16:30 07/12/21 17:00 Temperature Temperature Source Pulse Rate 52 L 55 L 58 L Pulse Rate [Right] Respiratory Rate 10 L 10 L 15 Blood Pressure 96/63 L 99/70 L 109/75 L Blood Pressure [Right Arm] Blood Pressure Mean 71 78 87 Blood Pressure Mean [Right Arm] Blood Pressure Source [Right Arm] Blood Pressure Position [Right Arm] 02 Sat by Pulse Oximetry 96 95 94 L Oxygen Delivery Method 07/12/21 17:31 07/12/21 18:00 07/12/21 18:31 Temperature Temperature Source Pulse Rate 53 L 54 L 52 L Pulse Rate [Right] Respiratory Rate 14 12 11 L Blood Pressure 106/69 L 120/77 133/75 Blood Pressure [Right Arm] Blood Pressure Mean 81 89 88 Blood Pressure Mean [Right Arm] Blood Pressure Source [Right Arm] Blood Pressure Position [Right Arm] 02 Sat by Pulse Oximetry 95 94 L 97 Oxygen Delivery Method 07/12/21 19:00 07/12/21 19:30 07/12/21 20:00 Temperature Temperature Source Pulse Rate 57 L 54 L 50 L Pulse Rate [Right] Respiratory Rate 12 16 13 Blood Pressure 126/80 111/78 123/83 Blood Pressure [Right Arm] Blood Pressure Mean 95 92 101 Blood Pressure Mean [Right Arm] Blood Pressure Source [Right Arm] Blood Pressure Position [Right Arm] 02 Sat by Pulse Oximetry 96 96 94 L Oxygen Delivery Method 07/12/21 20:31 07/12/21 21:00 07/12/21 21:30 Temperature Temperature Source Pulse Rate 55 L 51 L 50 L Pulse Rate [Right] Respiratory Rate 14 14 14 Blood Pressure 119/88 135/78 138/84 Blood Pressure [Right Arm] Blood Pressure Mean 102 Blood Pressure Mean [Right Arm] Blood Pressure Source [Right Arm] Blood Pressure Position [Right Arm] 02 Sat by Pulse Oximetry 94 L 95 94 L Oxygen Delivery Method Room Air Room Air - Lab Data Lab Results 07/12/21 14:00: WBC 6.4, RBC 4.38, Hgb 12.7, Hct 38.3, MCV 87.6, MCH 28.9, MCHC 33.0, RDW 13.3, Plt Count 385, MPV 7.4, Neut % (Auto) 59.3, Lymph % (Auto) 36.3, [place] % (Auto) 4.1, Eos % (Auto) 0.1, Baso % (Auto) 0.2, Neut # (Auto) 3.8, Lymph # (Auto) 2.3, [place] # (Auto) 0.3, Eos # (Auto) 0.0, Baso # (Auto) 0.0 07/12/21 14:00: Sodium 136, Potassium 4.1, Chloride 99, Carbon Dioxide 33 H, Anion Gap 8.1, BUN 14, Creatinine 0.90, Estimated Creat Clear 82, Estimated GFR 65, Est GFR ( Amer) 79, Glucose 102 H, Calcium 9.3, Total Bilirubin 0.4, AST 23, ALT 15, Alkaline Phosphatase 87, Total Protein 7.0, Albumin 4.2, Globulin 2.8, Albumin/Globulin Ratio 1.5 07/12/21 14:00: Plasma/Serum Alcohol < 10 07/12/21 14:00: Free T4 1.02 07/12/21 14:00: TSH 0.71, Salicylates < 1.0 L, Acetaminophen < 10 L 07/12/21 14:20: SARS-CoV-2 (P
--- NOTE | 2021-07-12 16:35 | PC.NURSE ---
Janice guerrero MDS
--- NOTE | 2021-07-12 16:35 | PC.NURSE ---
[facility] has been called
--- NOTE | 2021-07-12 16:38 | PC.NURSE ---
on the phone with .
[2021-07-12 16:44] LABS: Thyroid Stimulating Hormone 0.71 uIU/mL (0.465-4.68)
--- NOTE | 2021-07-12 17:34 | PC.NURSE ---
speaking with [facility]
--- NOTE | 2021-07-12 17:53 | PC.NURSE ---
Called [facility] for a bed and was denied. They are only accepting Stroke, STEMI, and trauma patients.
--- NOTE | 2021-07-12 18:07 | PC.NURSE ---
On the phone with fan again after speaking with for R/O Stroke.
--- NOTE | 2021-07-12 18:14 | PC.NURSE ---
Vanessa said they will give me a call back on an update for a bed.
--- NOTE | 2021-07-12 19:11 | PC.NURSE ---
PT daughter at bedside. Updated her on POC and what was going on at this time. Pt and daughter understanding. No new needs at this time
--- NOTE | 2021-07-12 19:12 | PC.NURSE ---
[facility] can not accept patient due to not having resources for basilar dissection.
--- NOTE | 2021-07-12 20:11 | PC.NURSE ---
Sara colón and spoke with patient and daughter again, updated them on status and that ER MD Would be speaking with Dr. Oliveros about patient. Gave report to Dr. Oliveros at this time so he could start reviewing patient chart.
--- NOTE | 2021-07-12 20:32 | PC.NURSE ---
Notified house of admission
--- NOTE | 2021-07-12 23:25 | PC.NURSE ---
called report to [facility]
--- NOTE | 2021-07-12 23:35 | PC.NURSE ---
pt arrived to floor at this time
[2021-07-12 23:49] LABS: Erythrocyte Sedimentation Rate 25 mm/hr (0-30)
[2021-07-12 23:55] LABS: C-Reactive Protein 1.4 mg/L (0-4)
[2021-07-13] VITALS: BP 152/78; PULSE 55; RESP 17; TEMP 36.1; O2SAT 100
[2021-07-13 04:00] VITALS: BP 114/77; PULSE 61; RESP 16; TEMP 36.3; O2SAT 100
[2021-07-13 06:43] LABS: Basophils % 0.3 % (0.1-2.0); Hematocrit 38.9 % (37.0-47.0); Hemoglobin 12.5 g/dL (12.2-16.2); Lymphocytes # 2.1 K/mm3 (0.7-4.5); Lymphocytes % 40.6 % (10-50); Mean Corpuscular HGB Conc 32.2 g/dL (31.8-35.4); Mean Corpuscular Hemoglobin 28.3 pg (27.0-31.2); Mean Corpuscular Volume 87.9 fl (81-99); Mean Platelet Volume 7.4 fl (7.4-10.4); Monocytes # 0.3 K/mm3 (0.1-1.0); Monocytes % 5.3 % (1.7-9.3); Neutrophils # 2.8 K/mm3 (1.8-7.8); Neutrophils % 53.8 % (37.0-80.0); Platelet Count 332 K/mm3 (142-424); Red Blood Count 4.43 M/mm3 (4.20-5.40); Red Cell Distribution Width 13.4 % (11.5-17.5); White Blood Count 5.2 K/mm3 (4.8-10.8)
--- NOTE | 2021-07-13 06:44 | PC.NURSE ---
No acute events t/o shift. Pt rested well. When pt arrived to floor she was A/O x3, could complete her admission and answer all questions, she had no periods of confusion t/o shift. Pt voiced no c/o of N/V or pain. Call light within reach.
[2021-07-13 06:56] LABS: Chloride 104 mmol/L (98-107)
[2021-07-13 06:57] LABS: Potassium 4.2 mmoL/L (3.5-5.1); Sodium 139 mmol/L (136-145)
[2021-07-13 07:00] LABS: Anion Gap 9.2 mEq/L (5-15); Blood Urea Nitrogen 12 mg/dl (7-17); Calcium 8.9 mg/dl (8.4-10.2); Carbon Dioxide 30 mmol/L (22.0-30.0); Creatinine Clearance Estimated 94 mL/min (50-200); Estimated Glomerular Filt Rate 75 ml/min (>60); GFR (African American) 90 ML/MIN (>60); Glucose 93 mg/dl (74-100)
--- NOTE | 2021-07-13 07:41 | P.CONPHA_ITS ---
[facility] Pharmacy VTE Monitoring - Patient Demographics Admission date: 07/13/21 Report Date: 07/13/21 Time: 07:41 Allergies/Adverse Reactions: Patient Allergies codeine Allergy (Verified 07/13/21 03:18) morphine Allergy (Verified 07/13/21 03:18) paroxetine [From Paxil] Allergy (Verified 07/13/21 03:18) Height: 1.73 m Weight: 74.389 kg Patient Problems: Current Active Problems TIA (transient ischemic attack) (Acute) - VTE Risk Labs: VTE Related Lab Results Hgb 12.5 g/dL (12.2-16.2) 07/13/21 05:50 Hct 38.9 % (37.0-47.0) 07/13/21 05:50 Plt Count 332 K/mm3 (142-424) 07/13/21 05:50 BUN 12 mg/dl (7-17) 07/13/21 05:50 Creatinine 0.80 mg/dl (0.52-1.04) 07/13/21 05:50 Estimated Creat Clear 94 mL/min (50-200) 07/13/21 05:50 Clinical Trial Participant: No - Prophylaxis VTE Prophylaxis Ordered?: Yes Types of VTE Prophylaxis: TEDS Knee High
--- NOTE | 2021-07-13 07:41 | HMH.PHAINT ---
Medication list verified with [facility]
[2021-07-13 08:00] VITALS: BP 138/80; PULSE 60; RESP 15; TEMP 36.4; O2SAT 97
--- NOTE | 2021-07-13 08:45 | MR_ITS ---
PROCEDURE: MR HEAD/BRAIN WO/W CON CLINICAL INDICATION: ABNORMAL CT NEURO FINDINGS COMPARISON: CT CT HEAD/BRAIN WO CON from 07/12/2021 TECHNIQUE: Routine multiplanar multi echo sequences are performed without gadolinium enhancement. FINDINGS: No midline shift, mass effect, intracranial hemorrhage, or hydrocephalus. The cerebellopontine angles, cerebellum, brainstem mid brain have an unremarkable appearance. No evidence of acute infarction. No enhancing lesions are evident. Severe mucosal thickening of the right maxillary sinus with small air-fluid level. There is some decreased FLAIR and T2 signal within the areas of mucosal thickening in the right maxillary sinus posteriorly which may be related to chronic inflammatory/infectious changes. Prominence of the right nasal mucosa posteriorly on the right once again noted with small retention cyst of the right sphenoid sinus. No mastoid effusion IMPRESSION: 1. No acute intracranial findings. 2. Paranasal sinus disease as described above. Dictated by: Nahum Silverman MD 07/13/2021 14:41 Nahum Silverman MD in [place] 07/13/2021 14:41
--- NOTE | 2021-07-13 09:56 | HMH.HP ---
*Admission Date: 07/13/21 [facility] History Medical History: Reports:: Arrhythmia, Hypertension Denies:: Cancer, Diabetes Mellitus Type 1, Diabetes Mellitus Type 2, MRSA *Have you ever received a pneumonia vaccine?: Yes *Have you received a flu vaccine this season?: Yes Laterality Cases: Left: Arthroscopy Shoulder Other Surgeries: Yes: Appendectomy, Hysterectomy-Partial, Tubal Ligation Amputation: No Fractures: No - *Social History Alcohol Intake: never *Occupational Status:: disabled Housing: house *Travel in the last 8 weeks: None Family Hx:: No significant family history Meds Home Medications Medication Instructions Recorded Confirmed Type ALPRAZolam [Alprazolam Xr 0.5mg 0.5 mg PO TID 07/12/21 07/13/21 History Tab] Buprenorphine HCl/Naloxone HCl 2 each SL DAILY 07/12/21 07/13/21 History [Buprenorphin-Naloxon 8-2 mg Sl] Gabapentin 600 mg PO QID 07/12/21 07/13/21 History Metoprolol Tartrate [Lopressor 50 mg PO BID 07/12/21 07/13/21 History 50mg tablet] Quetiapine Fumarate 50 mg PO HS 07/12/21 07/13/21 History Tizanidine HCl 4 mg PO TID 07/12/21 07/13/21 History cloNIDine HCL [cloNIDine 0.1mg 0.1 mg PO HS 07/12/21 07/13/21 History Tablet] hydroCHLOROthiazide 12.5 mg PO DAILY 07/12/21 07/13/21 History [Hydrochlorothiazide 12.5mg Tab] Flecainide Acetate [Tambocor 50mg 50 mg PO BID 07/13/21 07/13/21 History tablet] hydrOXYzine HCL [Hydroxyzine HCl] 25 mg PO TIDP PRN 07/13/21 07/13/21 History Allergies Allergy/AdvReac Type Severity Reaction Status Date / Time codeine Allergy Verified 07/13/21 03:18 morphine Allergy Verified 07/13/21 03:18 paroxetine [From Paxil] Allergy Verified 07/13/21 03:18 Exam Vital signs and Labs for Last 24 Hours: Temp Pulse Resp BP Pulse Ox 97.6 F 60 15 138/80 97 07/13/21 08:00 07/13/21 08:00 07/13/21 08:00 07/13/21 08:00 07/13/21 08:00 Laboratory Results - last 24 hr 07/12/21 14:00: WBC 6.4, RBC 4.38, Hgb 12.7, Hct 38.3, MCV 87.6, MCH 28.9, MCHC 33.0, RDW 13.3, Plt Count 385, MPV 7.4, Neut % (Auto) 59.3, Lymph % (Auto) 36.3, [place] % (Auto) 4.1, Eos % (Auto) 0.1, Baso % (Auto) 0.2, Neut # (Auto) 3.8, Lymph # (Auto) 2.3, [place] # (Auto) 0.3, Eos # (Auto) 0.0, Baso # (Auto) 0.0 07/12/21 14:00: Sodium 136, Potassium 4.1, Chloride 99, Carbon Dioxide 33 H, Anion Gap 8.1, BUN 14, Creatinine 0.90, Estimated Creat Clear 82, Estimated GFR 65, Est GFR ( Amer) 79, Glucose 102 H, Calcium 9.3, Total Bilirubin 0.4, AST 23, ALT 15, Alkaline Phosphatase 87, Total Protein 7.0, Albumin 4.2, Globulin 2.8, Albumin/Globulin Ratio 1.5 07/12/21 14:00: Plasma/Serum Alcohol < 10 07/12/21 14:00: Free T4 1.02 07/12/21 14:00: TSH 0.71, Salicylates < 1.0 L, Acetaminophen < 10 L 07/12/21 14:20: SARS-CoV-2 (PCR) Not detected, Influenza A Untype (PCR) Not detected, Influenza Type B (PCR) Not detected 07/12/21 14:40: Urine Opiates Screen Negative, Urine Methadone Screen Negative, Ur Barbituates Screen Negative, Ur Phencyclidine Scrn Negative, Ur Amphetamines Screen Negative, U Benzodiazepines Scrn Positive H, Urine Cocaine Screen Negative, U Marijuana (THC) Screen Positive H 07/12/21 14:40: Urine Color Yellow, Urine Appearance Clear, Urine pH 7.0, Ur Specific [place] 1.010, Urine Protein Negative, Urine Glucose (UA) Negative, Urine Ketones Negative, Urine Blood Negative, Urine Nitrate Negative, Urine Bilirubin Negative, Urine Urobilinogen 0.2, Ur Leukocyte Esterase Negative, Urine RBC None, Urine WBC None, Ur Squamous Epith Cells Occasional, Urine Bacteria None 07/12/21 14:57: VBG pH 7.36, VBG pCO2 47.9, VBG pO2 57.6 H, VBG HCO3 26.5, VBG Total CO2 27.9 H, VBG O2 Saturation 89.5 H, VBG Base Excess 1.0 07/12/21 23:06: ESR 25 07/12/21 23:06: C-Reactive Protein 1.4 07/13/21 05:50: WBC 5.2, RBC 4.43, Hgb 12.5, Hct 38.9, MCV 87.9, MCH 28.3, MCHC 32.2, RDW 13.4, Plt Count 332, MPV 7.4, Neut % (Auto) 53.8, Lymph % (Auto) 40.6, [place] % (Auto) 5.3, Eos % (Auto) 0.0 L, Baso % (Auto) 0.3, Neut # (Auto)
--- NOTE | 2021-07-13 13:58 | MR_ITS ---
PROCEDURE: MR ANGIO HEAD WO CON CLINICAL INDICATION: ABNORMAL CT SCAN COMPARISON: CT CT ANGIO HEAD from 07/12/2021 TECHNIQUE: 3D [id number] images are obtained with multi slab reformats. FINDINGS: Fenestration once again noted involving the mid aspect of the basilar artery as a normal variant. Small saccular aneurysm projects off the posterior aspect of the clinoid portion of the right ICA measuring approximately 3 mm unchanged. No other significant anomalies are evident. There is mild degree of motion artifact obscuring fine detail. No major intracranial occlusive process. IMPRESSION: 3 mm right internal carotid artery aneurysm Dictated by: Nahum Silverman MD 07/13/2021 15:03 Nahum Silverman MD in [place] 07/13/2021 15:03
--- NOTE | 2021-07-13 14:06 | PC.NURSE ---
MRA completed per Dr. Oliveros request
[2021-07-13 16:00] VITALS: BP 145/88; PULSE 70; RESP 16; TEMP 36.5; O2SAT 99
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
[2021-07-16 03:38] LABS: Arsenic, Blood <1 ug/L (2-23); Lead, Blood 1 ug/dL (0-4); Mercury, Blood <1.0 ug/L (0.0-14.9)
== END 2021-07-13 18:42 | disposition home or self-care (01) ==
LOC: ER 16:15 → OB 20:48 → 2ND 22:41 → OB 07-13 00:31
PROVIDERS: Admitting Provider Emergency Medicine; Emergency Provider Emergency Medicine; PCP Emergency Medicine; Visit Provider Emergency Medicine
DX: G45.8 Other transient cerebral ischemic attacks and related syndromes (principal); Z20.822 Contact with and (suspected) exposure to COVID-19; Z79.899 Other long term (current) drug therapy; I67.1 Cerebral aneurysm, nonruptured
CPT/HCPCS: G0378; 36415; 70450; 70496; 70498; 70544; 70553; 71046; 80048; 80053; 80305; 80329; 81001; 82175; 82803; 83655; 83735; 83825; 84439; 84443; 85025; 85651; 86140; 93005; 96365; 99284; A9576; C9803; J2405; Q9967; U0003; U0005

== ENCOUNTER 2021-07-26 10:52 | Outpatient (RCR) | payer MEDICARE, MEDICAID, SELFPAY ==
--- NOTE | 2021-07-26 11:52 | HMH.PTOPEV ---
PT Outpatient Evaluation Rehab PT Outpatient Evaluation Start: 07/26/21 11:18 Freq: Status: Active Protocol: Document 07/26/21 11:18 KAY (Rec: 07/26/21 11:51 KAY [id number]) Electronically Signed By Yair Gregory, PT 07/26/21 11:18 Outpatient Therapy Subjective History Subjective History Pt reports h/o chronic LBP, neck pain, and cervico-genic GARCIA's. Pt reports LBP since disc injury in 1995, w/failed lumbar fusion, and neck pain since sx. fusion ~3 yrs ago. Pt reports no radilcular s/s, however, reports daily GARCIA's, and bilateral hip/glut area pain. Chief Complaint Pain,Stiff Symptom Type Ache,Throb,Sharp,Dull Symptoms Relieved By Rest/Positioning,Heat, Prescription Meds Symptoms Aggravated By Standing,Bending/Stooping, Physical Activity,Twisting, Walking,Lifting Prior Functional Limitations Lifting,Housework,Standing, Walking,Bending/Stooping Current Functional Limitations Lifting,Housework,Standing, Walking,Bending/Stooping Symptom Description Constant but Variable Level of pain today (0-10) 7 Pain scale - at its best (0-10) 7 Pain scale - at its worst (0-10) 10 Cervical Eval Palpation Cervical Muscles R Cervical Paraspinal,L Cervical Paraspinal,R Suboccipital,L Suboccipital,R CT Junction,L CT Junction,R Upper Trapezius,L Upper Trapezius Cervical/Thoracic Palpation Findings Tenderness,Trigger Point, Muscle Guarding Posture Head/C-Spine Posture Sitting Position Neutral Position Head/C-Spine Posture Standing Position Neutral Position Flexibility Deficits Upper Trapezius Muscle Length (R) Mild Tightness,(L) Mild Tightness Levaetor Scapulae Muscle Length (R) Mild Tightness,(L) Mild Tightness Scalene Group Muscle Length (R) Mild Tightness,(L) Mild Tightness Passive Joint Mobility Cervical PIVM Dec: R C5/6 L C5/6 R C6/7 L C6/7 R C7/T1 L C7/T1 WNL: R OA
== END 2021-07-26 10:55 | disposition home or self-care (01) ==
LOC: PT 10:52
PROVIDERS: PCP Emergency Medicine; Visit Provider Specialist
DX: G43.709 Chronic migraine without aura, not intractable, without status migrainosus (principal); R42 Dizziness and giddiness; G89.29 Other chronic pain; M54.2 Cervicalgia; M54.9 Dorsalgia, unspecified
CPT/HCPCS: 97010; 97014; 97163; G0283

== ENCOUNTER → 2021-08-03 09:48 | Outpatient (CLI) | payer MEDICARE, MEDICAID, SELFPAY | PROVIDERS: PCP Emergency Medicine; Visit Provider Specialist | DX: G47.00 Insomnia, unspecified (principal) | CPT/HCPCS: 95816; 95819 ==

== ENCOUNTER 2021-09-02 11:54 | Emergency (ER) | payer MEDICARE, MEDICAID, SELFPAY ==
[2021-09-02 11:55] VITALS: BP 160/98; PULSE 90; RESP 24; TEMP 37.1; O2SAT 98; BMI 24.9
--- NOTE | 2021-09-02 12:20 | ECG_ITS ---
APPROVED REPORT Exam: Resting ECG HR:75 bpm ECG Measurements Heart Rate 75 AXES IL 144 P 62 QRSd 89 QRS 78 QT 365 T 64 QTc 394 Conclusion SINUS RHYTHM NORMAL ECG UNCONFIRMED REPORT Electronically signed by : Christophe Villarreal MD 09/02/2021 19:29:45
[2021-09-02 12:35] LABS: Basophils % 0.6 % (0.1-2.0); Eosinophils % 0.4 % (0.1-12.0); Hematocrit 44.6 % (37.0-47.0); Hemoglobin 14.2 g/dL (12.2-16.2); Lymphocytes # 2.3 K/mm3 (0.7-4.5); Lymphocytes % 33.3 % (10-50); Mean Corpuscular HGB Conc 31.8 g/dL (31.8-35.4); Mean Corpuscular Volume 91.1 fl (81-99); Mean Platelet Volume 8.2 fl (7.4-10.4); Monocytes # 0.3 K/mm3 (0.1-1.0); Monocytes % 4.4 % (1.7-9.3); Neutrophils # 4.2 K/mm3 (1.8-7.8); Neutrophils % 61.3 % (37.0-80.0); Platelet Count 311 K/mm3 (142-424); Red Cell Distribution Width 14.2 % (11.5-17.5); White Blood Count 6.9 K/mm3 (4.8-10.8)
[2021-09-02 12:39] LABS: Alanine Aminotransferase 15 U/L (12-78); Albumin Level 4.8 g/dl (3.5-5.0); Albumin/Globulin Ratio 1.5 (1.1-1.8); Alkaline Phosphatase 93 U/L (38-126); Anion Gap 13.8 mEq/L (5-15); Aspartate Amino Transferase 25 U/L (14-36); Bilirubin,Total 0.7 mg/dl (0.2-1.3); Blood Urea Nitrogen 12 mg/dl (7-17); Calcium 9.6 mg/dl (8.4-10.2); Carbon Dioxide 27 mmol/L (22.0-30.0); Chloride 105 mmol/L (98-107); Creatinine Clearance Estimated 73 mL/min (50-200); Estimated Glomerular Filt Rate 58 ml/min (>60); GFR (African American) 70 ML/MIN (>60); Globulin 3.2 g/dL (1.3-3.2); Glucose 101 mg/dl (74-100); Potassium 3.8 mmoL/L (3.5-5.1); Sodium 142 mmol/L (136-145)
--- NOTE | 2021-09-02 13:08 | XR_ITS ---
FINAL REPORT CLINICAL HISTORY: elevated bp COMPARISON: 06/01/2021 FINDINGS: TWO VIEWS OF THE CHEST The heart is normal in size. The mediastinum is unremarkable. The lungs are clear. There is no pneumothorax. There is moderate degenerative change of the thoracic spine. Postoperative changes seen in the cervical spine. IMPRESSION: No acute cardiopulmonary process. Reviewed, Interpreted and Dictated by Emanuel Ignacio III, MD Transcribed by Briana Strickland Authenticated by Emanuel Ignacio III, MD on 09/02/2021 01:35:56 PM [facility]
--- NOTE | 2021-09-02 13:11 | PC.NURSE ---
Patient to radiology with electrical and radio mechanic
--- NOTE | 2021-09-02 13:13 | PC.NURSE ---
Pt to rad
[2021-09-02 13:20] VITALS: BP 120/75; PULSE 61; O2SAT 98
[2021-09-02 13:23] LABS: Troponin I < 0.01 ng/ml (0.00-0.034)
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
[2021-09-02 13:38] VITALS: BP 103/64; PULSE 77; O2SAT 96
[2021-09-02 13:44] VITALS: BP 103/64; PULSE 77; RESP 18; TEMP 37.1; O2SAT 96
== END 2021-09-02 13:44 | disposition home or self-care (01) ==
PROVIDERS: Emergency Provider Emergency Medicine; PCP Emergency Medicine
DX: R51.9 Headache, unspecified (principal); I10 Essential (primary) hypertension; E78.5 Hyperlipidemia, unspecified; F41.8 Other specified anxiety disorders; Z79.899 Other long term (current) drug therapy
CPT/HCPCS: 71046; 80053; 84484; 85025; 93005; 99283

== ENCOUNTER → 2021-11-01 19:10 | Outpatient (CLI) | payer MEDICARE, SELFPAY ==
[2021-11-01 17:39] LABS: Amphetamine/Metha Screen,Urine Negative ng/ml (<1000); Barbiturates Screen,Urine Negative ng/ml (<200)
[2021-11-01 17:41] LABS: Benzodiazepines Screen,Urine Positive ng/ml (<200)
[2021-11-01 17:42] LABS: Cannabinoid Screen,Urine Positive ng/ml (<50)
[2021-11-01 17:43] LABS: Cocaine Screen,Urine Negative ng/ml (<300); Methadone Screen,Urine Negative ng/ml (<300)
[2021-11-01 17:44] LABS: Opiate Screen,Urine Positive ng/ml (<300); Phencyclidine Screen,Urine Negative ng/ml (<25)
== END ==
PROVIDERS: Visit Provider Emergency Medicine
DX: Z79.899 Other long term (current) drug therapy (principal)
CPT/HCPCS: 80305

== ENCOUNTER 2021-11-13 10:24 | Emergency (ER) | payer MEDICARE, SELFPAY ==
[2021-11-13 10:25] VITALS: BP 143/88; PULSE 88; RESP 19; TEMP 36.9; O2SAT 95; BMI 25.0
--- NOTE | 2021-11-13 10:30 | PC.NURSE ---
pt is sitting on the edge of the bed; hooked up to vital signs and call light within reach. Nurse is bedside.
--- NOTE | 2021-11-13 10:38 | HMH.EDGENADL ---
ED Disposition Clinical Impression: Dental abscess Disposition: Home, Self-Care Condition on Discharge: Good Instructions: DI for Dental Pain, DI for Tooth Abscess Additional Instructions: Take clindamycin as prescribed. Stop amoxicillin. Additional instructions for DENTAL PROBLEMS: See a dentist as soon as possible for further evaluation. Return immediately if you have an uncontrollable fever greater than 102 degrees, difficulty breathing or shortness of breath, persistent vomiting, or inability to swallow. Prescriptions: clindamycin HCL [Clindamycin HCl] 300 mg PO QID #40 cap Transmission Status: Pending to [facility] Referrals: Albert Oliveros MD [Primary Care Provider] - - Critical Care Critical Care Time: No Attestation: On 11/13/21, the high probability of a clinically significant, sudden or life threatening deterioration of the following system(s) required my full and direct attention, intervention and personal management. The time I documented below is in addition to time spent performing reported procedures but includes the following listed in this critical care notation. Medical Decision Making - [place] Inquiry Pt receiving controlled substance: No [place] was queried for this patient: Yes Vital Signs: 11/13/21 10:25 Temperature 98.5 F Temperature Source Oral Pulse Rate [Right Radial] 88 Respiratory Rate 19 Blood Pressure [Right Arm] 143/88 H Blood Pressure Mean [Right Arm] 106 Blood Pressure Source [Right Arm] Automatic Cuff Blood Pressure Position [Right Arm] Sitting 02 Sat by Pulse Oximetry 95 Oxygen Delivery Method Room Air Orders (Tests/Meds): ED MEDICATIONS Discontinued Medications Generic Name Dose Route Start Last Admin Trade Name Freq PRN Reason Stop Dose Admin Benzocaine/Butamben/Tetracaine HCl 1 gm 11/13/21 10:36 11/13/21 10:39 Tetracaine/Benzocaine/Butamben 56 Gm [place] TP 11/13/21 10:37 1 gm ONCE ONE Administration Lidocaine HCl 15 ml 11/13/21 10:36 11/13/21 10:39 Lidocaine 2% Viscous Nelly 15ml Udc PO 11/13/21 10:37 15 ml ONCE ONE Administration General Adult HPI - General Chief complaint: Dental/Oral Stated complaint: left side face swelling, jaw pain Time Seen by Provider: 11/13/21 10:38 Mode of Arrival: Ambulatory Limitations: No Limitations Description of Symptoms (Recalled from ER Triage Doc. by RN): C/O dental pain in top left front tooth and left facial swelling x2 days. Advises that her dentist can't see her for 4 weeks. - History of Present Illness HPI narrative: 4-day history of left maxillary toothache with facial swelling. She is taking some leftover amoxicillin. Denies fever. States that she has called her dentist who cannot see her for 4 weeks. She says can I get a shot of an antibiotic . She is on Percocet 7.5 mg chronically for pain. - Related Data Home Medications Medication Instructions Recorded Confirmed Tizanidine HCl [Tizanidine HCl 4 mg PO TID 06/01/21 11/01/21 2mg] cloNIDine HCL [cloNIDine 0.1mg 0.1 mg PO HS 07/12/21 11/01/21 Tablet] hydroCHLOROthiazide 12.5 mg PO DAILY 07/12/21 11/01/21 [Hydrochlorothiazide 12.5mg Tab] Previous Rx's Medication Instructions Recorded atogepant 60 mg tablet 60 mg PO DAILY #30 tab 07/20/21 bisacodyl 5 mg tablet 5 mg PO HS 2 Days #2 tab 07/28/21 metoprolol tartrate 50 mg tablet 50 mg PO BID #60 tab 09/28/21 quetiapine 50 mg tablet 50 mg PO HS #30 tab 09/28/21 alprazolam 0.5 mg tablet 0.5 mg PO TID 30 Days #90 tab 11/01/21 flecainide 50 mg tablet 50 mg PO BID #60 tab 11/01/21 gabapentin 600 mg tablet 600 mg PO QID #120 tab 11/01/21 oxycodone-acetaminophen 7.5 mg-325 1 tab PO TID #90 tab 11/01/21 mg tablet clindamycin HCL [Clindamycin HCl] 300 mg PO QID #40 cap 11/13/21 Allergies Allergy/AdvReac Type Severity Reaction Status Date / Time naloxone Allergy Unknown Unknown Verified 11/01/21 14:20 allergy reaction code
--- NOTE | 2021-11-13 10:40 | PC.NURSE ---
ED MD at
--- NOTE | 2021-11-13 10:51 | PC.NURSE ---
Pharmacy is mixing antibiotic
[2021-11-13 12:05] VITALS: BP 139/72; PULSE 98; RESP 16; TEMP 36.4; O2SAT 98
== END 2021-11-13 12:05 | disposition home or self-care (01) ==
PROVIDERS: Emergency Provider Emergency Medicine; PCP Emergency Medicine
DX: K04.7 Periapical abscess without sinus (principal); F41.8 Other specified anxiety disorders; E78.5 Hyperlipidemia, unspecified; I10 Essential (primary) hypertension; Z79.899 Other long term (current) drug therapy
CPT/HCPCS: 96365; 96375; 99284

== ENCOUNTER 2021-12-01 10:22 | Emergency (ER) | payer SELFPAY ==
[2021-12-01 10:24] VITALS: BP 182/100; PULSE 69; RESP 18; TEMP 36.6; O2SAT 98; BMI 24.3
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
--- NOTE | 2021-12-01 10:43 | PC.NURSE ---
notified rad of orders on pt
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
[2021-12-01 12:30] VITALS: BP 146/80; PULSE 54; RESP 20; TEMP 36.6; O2SAT 100
== END 2021-12-01 12:30 | disposition home or self-care (01) ==
PROVIDERS: Emergency Provider Emergency Medicine; PCP Emergency Medicine
DX: S16.1XXA Strain of muscle, fascia and tendon at neck level, initial encounter (principal); S39.012A Strain of muscle, fascia and tendon of lower back, initial encounter; S76.011A Strain of muscle, fascia and tendon of right hip, initial encounter; S46.911A Strain of unspecified muscle, fascia and tendon at shoulder and upper arm level, right arm, initial encounter; S80.01XA Contusion of right knee, initial encounter; V89.2XXA Person injured in unspecified motor-vehicle accident, traffic, initial encounter; Z88.6 Allergy status to analgesic agent; Z88.5 Allergy status to narcotic agent; Z88.8 Allergy status to other drugs, medicaments and biological substances; I10 Essential (primary) hypertension; E78.5 Hyperlipidemia, unspecified; Z86.14 Personal history of Methicillin resistant Staphylococcus aureus infection
CPT/HCPCS: 72125; 72128; 72131; 73030; 73502; 73562; 99285

== ENCOUNTER 2021-12-07 10:26 | Emergency (ER) | payer SELFPAY ==
[2021-12-07 11:22] VITALS: BP 109/87; PULSE 76; RESP 19; TEMP 36.8; O2SAT 100; BMI 24.3
--- NOTE | 2021-12-07 11:38 | HMH.EDUTC ---
[facility] Disposition Clinical Impression: Encounter for screening for COVID-19 Disposition: Home, Self-Care Condition on Discharge: Good Instructions: Preventing the Spread of Coronavirus Discharge Instructions Additional Instructions: Drink plenty of fluids. Take tylenol for pain or fever. Return if you begin to have difficulty breathing. Follow up with your regular doctor. GO TO THE ER FOR ANY WORSENING SYMPTOMS Referrals: Provider,Referral, MD [Primary Care Provider] - Time of Disposition: 11:48 Medical Decision Making - Medical Records Medical records reviewed: No: I reviewed the patient's medical records. - [place] Inquiry Pt receiving controlled substance: No Vital Signs: 12/07/21 11:22 12/07/21 11:50 Temperature 98.3 F 98.3 F Temperature Source Oral Pulse Rate 76 Pulse Rate [Radial] 76 Respiratory Rate 19 19 Blood Pressure 109/87 L Blood Pressure [Right Arm] 109/87 L Blood Pressure Mean [Right Arm] 94 02 Sat by Pulse Oximetry 100 [facility] HPI - General Stated complaint: covid pcr Time Seen by Provider: 12/07/21 11:38 Mode of Arrival: Ambulatory Source of Information: Patient Limitations: No Limitations Description of Symptoms (Recalled from Triage Doc. by RN): pt here for covid test prior to surgery HEENT Symptoms (Recalled from RN notes): No Resp Symptoms (Recalled from RN notes): No Skin Symptoms (Recalled from RN notes): No MS Symptoms (Recalled from RN notes): No Functional Status (Recalled from RN notes): wnl - History of Present Illness Provider Complaint: She needs a covid test because she has surgery scheduled for 3 days from now. - Related Data Home Medications Medication Instructions Recorded Confirmed Tizanidine HCl [Tizanidine HCl 4 mg PO TID 06/01/21 11/01/21 2mg] cloNIDine HCL [cloNIDine 0.1mg 0.1 mg PO HS 07/12/21 11/01/21 Tablet] hydroCHLOROthiazide 12.5 mg PO DAILY 07/12/21 11/01/21 [Hydrochlorothiazide 12.5mg Tab] Previous Rx's Medication Instructions Recorded atogepant 60 mg tablet 60 mg PO DAILY #30 tab 07/20/21 bisacodyl 5 mg tablet 5 mg PO HS 2 Days #2 tab 07/28/21 metoprolol tartrate 50 mg tablet 50 mg PO BID #60 tab 09/28/21 quetiapine 50 mg tablet 50 mg PO HS #30 tab 09/28/21 alprazolam 0.5 mg tablet 0.5 mg PO TID 30 Days #90 tab 11/01/21 flecainide 50 mg tablet 50 mg PO BID #60 tab 11/01/21 gabapentin 600 mg tablet 600 mg PO QID #120 tab 11/01/21 oxycodone-acetaminophen 7.5 mg-325 1 tab PO TID #90 tab 11/01/21 mg tablet clindamycin HCL [Clindamycin HCl] 300 mg PO QID #40 cap 11/13/21 Allergies Allergy/AdvReac Type Severity Reaction Status Date / Time naloxone Allergy Unknown Unknown Verified 11/01/21 14:20 allergy reaction codeine Allergy Unknown Verified 11/01/21 14:20 allergy reaction morphine Allergy Unknown Verified 11/01/21 14:20 allergy reaction paroxetine [From Paxil] Allergy Unknown Verified 11/01/21 14:20 allergy reaction - Worker's Comp Is this a Worker's Comp case?: No [facility] History - Hepatitis A Screen Attestation statement:: This patient has been screened for Hepatitis A risk factors. I have reviewed the patient's past medical history: Yes Medical History: Reports:: Anxiety, Arrhythmia, Depression, Hyperlipidemia, Hypertension, Migraine, MRSA, Palpitations Denies:: Cancer, Diabetes Mellitus Type 1, Diabetes Mellitus Type 2, Internal Pacemaker Other Medical History: Reports: Anemia, Arthritis, Other Laterality Cases: Left: Arthroscopy Shoulder, Carpal Tunnel Release Other Surgeries: Yes: No Previous Surgery, Appendectomy, Cardiac Catheterization, Colonoscopy, Hysterectomy-Partial, Tubal Ligation, Other. No: Pacemaker Amputation: No Fractures: Yes (jaw fx, lt knee cap fx) Comment: brain tumor, back surgery and neck surgery with rods and screws, hand surgery, shoulder surgery - Social History Smoking Status: Former smoker #Yrs smoked (if
[2021-12-07 11:50] VITALS: BP 109/87; PULSE 76; RESP 19; TEMP 36.8
== END 2021-12-07 11:51 | disposition home or self-care (01) ==
PROVIDERS: Emergency Provider Nurse Practitioner Family; Referring Provider Radiology Diagnostic Radiology
DX: Z03.89 Encounter for observation for other suspected diseases and conditions ruled out (principal); R00.2 Palpitations; D64.9 Anemia, unspecified; Z20.822 Contact with and (suspected) exposure to COVID-19; I10 Essential (primary) hypertension; E78.5 Hyperlipidemia, unspecified; M19.90 Unspecified osteoarthritis, unspecified site; F32.A Depression, unspecified; F41.9 Anxiety disorder, unspecified; Z79.899 Other long term (current) drug therapy; Z88.5 Allergy status to narcotic agent; Z88.8 Allergy status to other drugs, medicaments and biological substances; Z87.891 Personal history of nicotine dependence; Z80.9 Family history of malignant neoplasm, unspecified
CPT/HCPCS: 99213; C9803; G0463; U0003; U0005

== ENCOUNTER → 2021-12-29 15:46 | Outpatient (CLI) | payer MEDICARE, SELFPAY ==
[2021-12-29 16:17] LABS: Amphetamine/Metha Screen,Urine Negative ng/ml (<1000)
[2021-12-29 16:18] LABS: Barbiturates Screen,Urine Negative ng/ml (<200)
[2021-12-29 16:19] LABS: Benzodiazepines Screen,Urine Positive ng/ml (<200)
[2021-12-29 16:20] LABS: Cannabinoid Screen,Urine Positive ng/ml (<50); Cocaine Screen,Urine Negative ng/ml (<300)
[2021-12-29 16:21] LABS: Methadone Screen,Urine Negative ng/ml (<300)
[2021-12-29 16:22] LABS: Opiate Screen,Urine Negative ng/ml (<300); Phencyclidine Screen,Urine Negative ng/ml (<25)
== END ==
PROVIDERS: PCP Emergency Medicine; Visit Provider Emergency Medicine
DX: Z79.899 Other long term (current) drug therapy (principal)
CPT/HCPCS: 80305

== ENCOUNTER → 2022-03-16 19:02 | Outpatient (CLI) | payer MEDICARE, SELFPAY ==
[2022-03-16 15:27] LABS: Amphetamine/Metha Screen,Urine Negative ng/ml (<1000)
[2022-03-16 15:28] LABS: Barbiturates Screen,Urine Negative ng/ml (<200)
[2022-03-16 15:29] LABS: Benzodiazepines Screen,Urine Positive ng/ml (<200); Cannabinoid Screen,Urine Negative ng/ml (<50)
[2022-03-16 15:30] LABS: Cocaine Screen,Urine Negative ng/ml (<300); Methadone Screen,Urine Negative ng/ml (<300)
[2022-03-16 15:31] LABS: Phencyclidine Screen,Urine Negative ng/ml (<25)
[2022-03-16 15:32] LABS: Opiate Screen,Urine Negative ng/ml (<300)
== END ==
PROVIDERS: PCP Emergency Medicine; Visit Provider Emergency Medicine
DX: M54.2 Cervicalgia (principal)
CPT/HCPCS: 80305

== ENCOUNTER → 2022-07-08 14:30 | Outpatient (CLI) | payer MEDICARE, SELFPAY ==
[2022-07-08 13:47] LABS: Amphetamine/Metha Screen,Urine Negative ng/ml (<1000)
[2022-07-08 13:48] LABS: Barbiturates Screen,Urine Negative ng/ml (<200); Benzodiazepines Screen,Urine Positive ng/ml (<200)
[2022-07-08 13:49] LABS: Cannabinoid Screen,Urine Positive ng/ml (<50); Cocaine Screen,Urine Negative ng/ml (<300)
[2022-07-08 13:50] LABS: Methadone Screen,Urine Negative ng/ml (<300)
[2022-07-08 13:51] LABS: Opiate Screen,Urine Negative ng/ml (<300)
[2022-07-08 13:52] LABS: Phencyclidine Screen,Urine Negative ng/ml (<25)
== END ==
PROVIDERS: PCP Emergency Medicine; Visit Provider Emergency Medicine
DX: Z79.899 Other long term (current) drug therapy (principal)
CPT/HCPCS: 80305

== ENCOUNTER → 2022-09-06 23:00 | Outpatient (CLI) | payer MEDICARE, MEDICAID, SELFPAY ==
[2022-09-07 16:47] LABS: Amphetamine/Metha Screen,Urine Negative ng/ml (<1000); Barbiturates Screen,Urine Negative ng/ml (<200); Benzodiazepines Screen,Urine Positive ng/ml (<200); Cannabinoid Screen,Urine Positive ng/ml (<50); Cocaine Screen,Urine Negative ng/ml (<300); Methadone Screen,Urine Negative ng/ml (<300); Opiate Screen,Urine Negative ng/ml (<300); Phencyclidine Screen,Urine Negative ng/ml (<25)
== END ==
PROVIDERS: PCP Emergency Medicine; Visit Provider Emergency Medicine
DX: Z79.899 Other long term (current) drug therapy (principal); R82.90 Unspecified abnormal findings in urine
CPT/HCPCS: 80305; 87086

== ENCOUNTER → 2022-09-27 10:24 | Outpatient (CLI) | payer MEDICARE, MEDICAID, SELFPAY ==
[2022-09-27 11:51] LABS: Basophils % 0.6 % (0.1-2.0); Eosinophils % 0.2 % (0.1-12.0); Hematocrit 41.1 % (37.0-47.0); Hemoglobin 13.2 g/dL (12.2-16.2); Lymphocytes # 2.4 K/mm3 (0.7-4.5); Lymphocytes % 38.5 % (10-50); Mean Corpuscular Hemoglobin 29.7 pg (27.0-31.2); Mean Corpuscular Volume 92.8 fl (81-99); Mean Platelet Volume 7.9 fl (7.4-10.4); Monocytes # 0.3 K/mm3 (0.1-1.0); Monocytes % 4.7 % (1.7-9.3); Neutrophils # 3.5 K/mm3 (1.8-7.8); Platelet Count 351 K/mm3 (142-424); Red Blood Count 4.43 M/mm3 (4.20-5.40); White Blood Count 6.2 K/mm3 (4.8-10.8)
[2022-09-27 12:30] LABS: Free T4 (Free Thyroxine) 1.05 ng/dl (0.78-2.19)
[2022-09-27 13:04] LABS: Chloride 104 mmol/L (98-107); Potassium 4.5 mmoL/L (3.5-5.1); Sodium 140 mmol/L (136-145)
[2022-09-27 13:06] LABS: Bilirubin,Unconjugated 0.6 mg/dL (0.0-1.1); Blood Urea Nitrogen 15 mg/dl (7-17); Estimated Glomerular Filt Rate 65 ml/min (>60); GFR (African American) 79 ML/MIN (>60)
[2022-09-27 13:07] LABS: Alanine Aminotransferase 16 U/L (12-78); Albumin Level 4.4 g/dl (3.5-5.0); Alkaline Phosphatase 98 U/L (38-126); Anion Gap 8.5 mEq/L (5-15); Aspartate Amino Transferase 24 U/L (14-36); Bilirubin,Direct 0.2 mg/dl (0.0-0.4); Bilirubin,Indirect 0.6 mg/dL (0.0-0.9); Bilirubin,Total 0.8 mg/dl (0.2-1.3); Calcium 9.6 mg/dl (8.4-10.2); Carbon Dioxide 32 mmol/L (22.0-30.0); Cholesterol 178 mg/dl (140-200); Glucose 102 mg/dl (74-100); Total Protein,Serum 7.3 g/dl (6.3-8.2); Triglycerides 119 mg/dl (30-150); VLDL Cholesterol 24 mg/dL (0-40)
[2022-09-27 13:08] LABS: Chol/HDL Ratio 2.4 (1-3.5); HDL Cholesterol 75 mg/dl (40-60); Magnesium 2.4 mg/dl (1.6-2.3)
[2022-09-27 13:18] LABS: Direct LDL Cholesterol 61.82 mg/dL (100-129)
[2022-09-27 13:38] LABS: Thyroid Stimulating Hormone 0.22 uIU/mL (0.465-4.68)
== END ==
PROVIDERS: PCP Emergency Medicine; Visit Provider Nurse Practitioner
DX: E78.5 Hyperlipidemia, unspecified (principal); G45.9 Transient cerebral ischemic attack, unspecified; I10 Essential (primary) hypertension; R07.9 Chest pain, unspecified; R55 Syncope and collapse
CPT/HCPCS: 36415; 80048; 80061; 80076; 83735; 84439; 84443; 85025; 93270

== ENCOUNTER → 2022-10-31 08:40 | Outpatient (CLI) | payer MEDICARE, SELFPAY ==
[2022-10-31 15:02] LABS: Amphetamine/Metha Screen,Urine Negative ng/ml (<1000)
[2022-10-31 15:03] LABS: Barbiturates Screen,Urine Negative ng/ml (<200)
[2022-10-31 15:04] LABS: Benzodiazepines Screen,Urine Negative ng/ml (<200); Cannabinoid Screen,Urine Positive ng/ml (<50)
[2022-10-31 15:05] LABS: Cocaine Screen,Urine Negative ng/ml (<300); Methadone Screen,Urine Negative ng/ml (<300)
[2022-10-31 15:07] LABS: Opiate Screen,Urine Negative ng/ml (<300); Phencyclidine Screen,Urine Negative ng/ml (<25)
== END ==
PROVIDERS: PCP Emergency Medicine; Visit Provider Emergency Medicine
DX: G89.29 Other chronic pain (principal)
CPT/HCPCS: 80305

== ENCOUNTER → 2023-03-01 12:58 | Outpatient (CLI) | payer MEDICARE, MEDICAID, SELFPAY ==
[2023-03-01 15:34] LABS: Barbiturates Screen,Urine Negative ng/ml (<200); Benzodiazepines Screen,Urine Positive ng/ml (<200); Cocaine Screen,Urine Negative ng/ml (<300); Phencyclidine Screen,Urine Negative ng/ml (<25)
[2023-03-01 15:39] LABS: Amphetamine/Metha Screen,Urine Negative ng/ml (<1000)
[2023-03-01 16:07] LABS: Cannabinoid Screen,Urine Positive ng/ml (<50); Methadone Screen,Urine Negative ng/ml (<300)
[2023-03-01 16:08] LABS: Opiate Screen,Urine Negative ng/ml (<300)
== END ==
PROVIDERS: PCP Emergency Medicine; Visit Provider Emergency Medicine
DX: M54.12 Radiculopathy, cervical region (principal); Z79.899 Other long term (current) drug therapy
CPT/HCPCS: 80305

== ENCOUNTER → 2023-04-17 13:30 | Outpatient (CLI) | payer MEDICARE, MEDICAID, SELFPAY ==
[2023-04-17 21:00] LABS: Benzodiazepines Screen,Urine Positive ng/ml (<200)
[2023-04-17 21:01] LABS: Amphetamine/Metha Screen,Urine Negative ng/ml (<1000)
[2023-04-17 21:02] LABS: Barbiturates Screen,Urine Negative ng/ml (<200); Methadone Screen,Urine Negative ng/ml (<300)
[2023-04-17 21:03] LABS: Cannabinoid Screen,Urine Positive ng/ml (<50)
[2023-04-17 21:04] LABS: Cocaine Screen,Urine Negative ng/ml (<300)
[2023-04-17 21:05] LABS: Opiate Screen,Urine Negative ng/ml (<300); Phencyclidine Screen,Urine Negative ng/ml (<25)
== END ==
PROVIDERS: PCP Emergency Medicine; Visit Provider Emergency Medicine
DX: M54.12 Radiculopathy, cervical region (principal)
CPT/HCPCS: 80305

== ENCOUNTER → 2023-07-19 10:55 | Outpatient (CLI) | payer MEDICARE, MEDICAID, SELFPAY ==
--- NOTE | 2023-07-19 10:55 | CT_ITS ---
FINAL REPORT TECHNIQUE: The patient was injected with IV contrast. Axial images were obtained through the chest in a PE protocol. 3-D reconstruction images were also performed. Individualized dose reduction techniques using automated exposure control or adjustment of the MA and/or KV according to patient's size were employed. CLINICAL HISTORY: Shortness of breath, dizzy spells COMPARISON: 06/01/2021 FINDINGS: Mediastinal vasculature is adequately opacified. No pulmonary artery filling defects are identified to suggest PE. There is no aortic dissection. There is no axillary adenopathy. There is no hilar or mediastinal adenopathy. The heart size is normal. There is no pericardial or pleural effusion. No suspicious infiltrate or nodule is identified. Limited images of the upper abdomen demonstrate a benign-appearing cyst in the lateral segment of the left lobe of the liver measuring 2.8 cm. There has an additional benign-appearing cyst measuring up to 1.5 cm. IMPRESSION: No pulmonary embolus or dissection. Benign-appearing hepatic cysts. Reviewed, Interpreted and Dictated by Tay Miner MD Transcribed by Bernadette Roblero Authenticated and [facility]
[2023-07-19 11:26] LABS: Blood Urea Nitrogen 20 mg/dl (7-17); Estimated Glomerular Filt Rate 42 ml/min (>60); GFR (African American) 51 ML/MIN (>60)
== END ==
PROVIDERS: PCP Internal Medicine; Visit Provider Nurse Practitioner Family
DX: R06.00 Dyspnea, unspecified (principal)
CPT/HCPCS: 36415; 71275; 82565; 84520; Q9967

== ENCOUNTER 2023-08-04 09:33 | Outpatient (CLI) | payer MEDICARE, MEDICAID, SELFPAY ==
[2023-08-04 21:45] LABS: Amphetamine/Metha Screen,Urine Negative ng/ml (<1000); Barbiturates Screen,Urine Negative ng/ml (<200); Benzodiazepines Screen,Urine Positive ng/ml (<200); Cannabinoid Screen,Urine Negative ng/ml (<50); Cocaine Screen,Urine Negative ng/ml (<300); Methadone Screen,Urine Negative ng/ml (<300); Opiate Screen,Urine Negative ng/ml (<300); Phencyclidine Screen,Urine Negative ng/ml (<25)
[2023-08-09 11:05] LABS: Opiates Negative (Cutoff=100); Oxycodone (GC/MS) 104 ng/mL (Cutoff=100); Oxymorphone (GC/MS) 374 ng/mL (Cutoff=100)
== END 2023-08-04 23:59 ==
PROVIDERS: PCP Internal Medicine; Visit Provider Physician Assistant
DX: M51.16 Intervertebral disc disorders with radiculopathy, lumbar region (principal); Z79.899 Other long term (current) drug therapy
CPT/HCPCS: G0482; 80307; 80361; 80365; G0480

== ENCOUNTER 2023-08-06 19:22 | Emergency (ER) | payer MEDICARE, MEDICAID, SELFPAY ==
[2023-08-06] VITALS (11 sets, daily range): BP systolic 142–208; BP diastolic 75–115; PULSE 66–77; RESP 12–20; TEMP 36.7; O2SAT 96–97; BMI 25.8
--- NOTE | 2023-08-06 19:35 | ED_ITS ---
Discharge Plan Disposition Patient Disposition: Home, Self-Care Chief Complaint: Chest Pain Prescriptions Prescriptions: No Action aspirin [Adult Low Dose Aspirin] 81 mg tablet,delayed release (DR/EC) 81 mg PO DAILY albuterol sulfate [Proventil HFA] 90 mcg/actuation HFA aerosol inhaler 2 puff inhalation Q8H PRN (Reason: shortness of breath or wheezing) Qty: 8.5 1RF omeprazole 40 mg capsule,delayed release(DR/EC) 40 mg PO DAILY Qty: 90 3RF duloxetine [Cymbalta] 30 mg capsule,delayed release(DR/EC) 30 mg PO DAILY Qty: 30 2RF rizatriptan [Maxalt] 10 mg tablet See Rx Instructions PO .COMPLEX Qty: 30 2RF Rx Instructions: take 1 tab at onset of headache; if no relief may repeat 1 tab after at least 2 hrs; max = 3 tabs/24 hr PO flecainide 50 mg tablet See Rx Instructions .ROUTE .COMPLEX Qty: 60 2RF Dose Instruction: TAKE ONE TABLET BY MOUTH TWICE DAILY FOR heart health Rx Instructions: TAKE ONE TABLET BY MOUTH TWICE DAILY FOR heart health quetiapine 100 mg tablet See Rx Instructions .ROUTE .COMPLEX Qty: 30 2RF Dose Instruction: TAKE ONE TABLET BY MOUTH EVERY DAY AT BEDTIME Rx Instructions: TAKE ONE TABLET BY MOUTH EVERY DAY AT BEDTIME metoprolol tartrate 50 mg tablet See Rx Instructions .ROUTE .COMPLEX Qty: 60 2RF Dose Instruction: TAKE ONE TABLET BY MOUTH TWICE DAILY FOR HIGH BLOOD PRESSURE Rx Instructions: TAKE ONE TABLET BY MOUTH TWICE DAILY FOR HIGH BLOOD PRESSURE gabapentin 600 mg tablet See Rx Instructions .ROUTE .COMPLEX Qty: 120 1RF Dose Instruction: TAKE ONE TABLET BY MOUTH FOUR TIMES DAILY MAY CAUSE DROWSINESS Rx Instructions: TAKE ONE TABLET BY MOUTH FOUR TIMES DAILY MAY CAUSE DROWSINESS alprazolam 1 mg tablet 1 mg PO TID PRN (Reason: anxiety) Qty: 90 1RF tramadol 50 mg tablet 50 mg PO Q8H PRN (Reason: pain) 30 Days Qty: 90 1RF tizanidine 2 mg tablet See Rx Instructions .ROUTE .COMPLEX Qty: 180 0RF Dose Instruction: TAKE TWO TABLETS BY MOUTH THREE TIMES DAILY MAY CAUSE DROWSINESS Rx Instructions: TAKE TWO TABLETS BY MOUTH THREE TIMES DAILY MAY CAUSE DROWSINESS oxycodone-acetaminophen 10-325 mg tablet 1 tab PO Q6H PRN (Reason: pain) 30 Days Qty: 120 0RF Referrals Follow up/Referrals: Harjinder Lora DO [Primary Care Provider] - See instructions Activity Restrictions/Add. Instructions Additional Instructions/Restrictions: Please follow-up with your primary care provider. Please return to the emergency department if you develop any new or worsening symptoms or become concerned for your health. Clinical Impressions Clinical Impression: Chest pressure Hypertension Qualifiers: Hypertension type: unspecified Qualified Code(s): I10 - Essential (primary) hypertension Discharge ED Provider: Glen Schwartz General Adult HPI General Chief complaint: Chest Pain Stated complaint: high bp Time Seen by Provider: 08/06/23 19:26 History of Present Illness HPI narrative: 58-year-old female, history of hypertension, chronic prescribed opiate use for back pain, prior TIA and pituitary tumor presents with multiple complaints. She reports that she has been unable to get her prescribed opiates from her physician because she ran out prior to her follow-up appointment. She is concerned she might be withdrawing a little bit. Associated with this, she reports chest pressure that she noticed earlier today. Her blood pressure has b een high today as well, with levels of 200 systolic at home. Her blood pressure was low at a recent doctor's visit and so her metoprolol was halved. She took the full dose of metoprolol today however because of his high. She reports that she is feeling somewhat better now. She denies any cardiac history. Related Data Home Medications Medication Instructions Recorded Confirmed aspirin 81 mg tablet,delayed 81 mg PO DAILY 09/26/22 08/06/23 release (Adult Low Dose Aspirin) Previous Rx's Medication Instructions Recorded rizatriptan 10 mg tablet (Maxalt) See Rx Instructions PO .COMPLEX 01/04/23 #30 tabs flecainide 50 mg tablet See Rx Instructions .Route 03/06/23 .COMPLEX #60 tabs quetiapine 100 mg tablet See Rx Instructions .Route 05/29/23 .COMPLEX #30 tabs albuterol sulfate 90 mcg/actuation 2 puff inhalation Q8H PRN 06/13/23 aerosol inhaler (Proventil HFA) shortness of breath or wheezing #8.5 grams metoprolol tartrate 50 mg tablet See Rx Instructions .Route 06/27/23 .COMPLEX #60 tabs alprazolam 1 mg tablet 1 mg PO TID PRN anxiety #90 tabs 07/04/23 gabapentin 600 mg tablet See Rx Instructions .Route 07/04/23 .COMPLEX #120 tabs tramadol 50 mg tablet 50 mg PO Q8H PRN pain 30 days #90 07/04/23 tabs tizanidine 2 mg tablet See Rx Instructions .Route 07/12/23 .COMPLEX #180 tabs omeprazole 40 mg capsule,delayed 40 mg PO DAILY #90 caps 07/18/23 release oxycodone-acetaminophen 10 mg-325 1 tab PO Q6H PRN pain 30 days #120 07/18/23 mg tablet tabs duloxetine 30 mg capsule,delayed 30 mg PO DAILY #30 caps 08/04/23 release (Cymbalta) Allergies Allergy/AdvReac Type Severity Reaction Status Date / Time naloxone Allergy Unknown Unknown Verified 08/04/23 13:14 allergy reaction codeine Allergy Unknown Verified 08/04/23 13:14 allergy reaction morphine Allergy Unknown Verified 08/04/23 13:14 allergy reaction paroxetine [From Paxil] Allergy Unknown Verified 08/04/23 13:14 allergy reaction PFSH PFSH Disclaimer: The information contained in this section may have been updated after the patient was seen, as this information can be updated by other users. Medical History (Updated 08/06/23 @ 23:13 by Glen Schwartz MD) Abnormal renal function Bleeding from right ear Fracture of left patella ROSETTE (obstructive sleep apnea) Syncope Syncope Social History Smoking Status: Never smoker second hand exposure: No alcohol intake: never substance use type: former substance user current occupational status: disabled Travel in the last 8 weeks: None household members: none housing: other current occupational exposures/hazards: No caffeine: No ROS Obtained: Yes All systems reviewed & no additional complaints except as documented Physical Exam General General appearance: alert and in no apparent distress Head Head exam: atraumatic and normocephalic Eye Eye exam: Present normal appearance, PERRL and EOMI ENT ENT exam: Present normal oropharynx and normal external ear exam Neck Neck exam: Present normal inspection and full ROM Chest Chest inspection: Present normal inspection and symmetric chest wall rise; Absent tenderness Respiratory Respiratory exam: Present normal lung sounds bilaterally; Absent respiratory distress Cardiovascular Cardiovascular exam: Present regular rate and normal rhythm Abdominal Exam Abdominal exam: Present soft; Absent distention, tenderness or guarding Extremities Exam Extremities exam: Present normal inspection; Absent edema or joint swelling Back Exam Back exam: Present normal inspection; Absent tenderness Neurological Exam Neurological exam: Present alert and oriented X3; Absent motor sensory deficit Psychiatric Psychiatric exam: Present normal affect and normal mood Skin Skin exam: Present warm, dry and normal color Lymphatic Lymphatic Findings: no adenopathy Medical Decision Making Medical Records Medical records reviewed: Yes I reviewed the patient's medical records. [place] Inquiry Pt receiving controlled substance: No [place] was queried for this patient: No Vital Signs: 08/06/23 19:23 08/06/23 19:38 08/06/23 19:30 Temperature 98.0 F Temperature Source Oral Pulse Rate 76 77 Pulse Rate [Radial] 76 Respiratory Rate 20 Blood Pressure 182/115 H Blood Pressure [Right Arm] 208/112 H Blood Pressure Mean [Right Arm] 144 Blood Pressure Source [Right Arm] Automatic Cuff Blood Pressure Position [Right Arm] Sitting 02 Sat by Pulse Oximetry 96 97 Oxygen Delivery Method Room Air 08/06/23 20:00 08/06/23 20:33 08/06/23 21:00 Temperature Temperature Source Pulse Rate 68 Pulse Rate [Radial] Respiratory Rate 15 14 15 Blood Pressure 175/105 H 167/103 H 170/113 H Blood Pressure [Right Arm] Blood Pressure Mean [Right Arm] Blood Pressure Source [Right Arm] Blood Pressure Position [Right Arm] 02 Sat by Pulse Oximetry 97 Oxygen Delivery Method 08/06/23 21:30 08/06/23 22:00 08/06/23 22:30 Temperature Temperature Source Pulse Rate Pulse Rate [Radial] Respiratory Rate 15 16 13 Blood Pressure 150/89 H 142/75 H 147/81 H Blood Pressure [Right Arm] Blood Pressure Mean [Right Arm] Blood Pressure Source [Right Arm] Blood Pressure Position [Right Arm] 02 Sat by Pulse Oximetry Oxygen Delivery Method 08/06/23 23:00 Temperature Temperature Source Pulse Rate Pulse Rate [Radial] Respiratory Rate 15 Blood Pressure 150/95 H Blood Pressure [Right Arm] Blood Pressure Mean [Right Arm] Blood Pressure Source [Right Arm] Blood Pressure Position [Right Arm] 02 Sat by Pulse Oximetry Oxygen Delivery Method Lab Data Lab results reviewed: Yes I reviewed the patient's lab results. Lab Results 08/06/23 20:04: WBC 6.7, RBC 4.83, Hgb 14.2, Hct 42.9, MCV 88.8, MCH 29.4, MCHC 33.1, RDW 13.5, Plt Count 312, MPV 8.3, Neut % (Auto) 54.1, Lymph % (Auto) 38.4, [place] % (Auto) 6.4, Eos % (Auto) 0.4, Baso % (Auto) 0.7, Neut # (Auto) 3.6, Lymph # (Auto) 2.6, [place] # (Auto) 0.4, Eos # (Auto) 0.0, Baso # (Auto) 0.1, Sodium 140, Potassium 4.0, Chloride 102, Carbon Dioxide 31 H, Anion Gap 11.0, BUN 7, Creatinine 0.90, Estimated Creat Clear 82, Estimated GFR 65, Est GFR ( Amer) 78, Glucose 116 H, Calcium 9.5, Total Bilirubin 0.7, AST 43 H, ALT 39, Alkaline Phosphatase 135 H, Troponin I < 0.01, NT-Pro-B Natriuret Pep 273 H, Total Protein 8.2, Albumin 4.6, Globulin 3.6 H, Albumin/Globulin Ratio 1.3 08/06/23 20:15: D-Dimer 0.37 08/06/23 22:28: Troponin I < 0.01 08/06/23 20:04 08/06/23 20:04 Orders (Tests/Meds): ED MEDICATIONS Discontinued Medications Generic Name Dose Route Start Last Admin Trade Name Syed PRN Reason Stop Dose Admin Acetaminophen 1,000 mg 08/06/23 19:58 08/06/23 20:44 Acetaminophen 500mg Tab PO 08/06/23 19:59 1,000 mg ONCE ONE Administration Ibuprofen 600 mg 08/06/23 19:58 08/06/23 20:44 Ibuprofen 600 Mg Tablet PO 08/06/23 19:59 600 mg ONCE ONE Administration ORDERS Category Date Time Status CXR --portable [XR chest portable] Stat Exams 08/06/23 19:58 Completed BNP [Brain Natriuretic Peptide] Stat Lab 08/06/23 20:04 Completed CBC w/Auto Diff [Complete Blood Count Auto Diff] Stat Lab 08/06/23 20:04 Completed CMP [Comprehensive Metabolic Panel] Stat Lab 08/06/23 20:04 Completed D-Dimer Stat Lab 08/06/23 20:15 Completed Troponin I Q3H Lab 08/06/23 20:04 Completed Troponin I Q3H Lab 08/06/23 22:28 Completed HEART Score History (anamnesis): Slightly suspicious ECG: Normal Age: 45-65 years Risk factors: 1-2 risk factors Troponin: </= normal limit HEART Score: 2 Medical Decision Narrative: 58-year-old female with history of hypertension hyperlipidemia presents with chest pressure and hypertension. History was obtained via conversation with patient, family. On arrival, patient is afebrile, hypertensive with systolics in the 190s, moving all extremities spontaneously. Full physical exam performed and significant for no significant exam findings Differential includes but is not limited to asymptomatic hypertension, hypertensive urgency, hypertensive emergency, ACS, PE. Patient was given Tylenol and ibuprofen for symptomatic management and correction of underlying abnormalities. Workup initiated including CBC CMP BNP D-dimer troponin chest x-ray EKG. On re-evaluation, patient [remains afebrile, HD stable.] Blood pressure improving without intervention. Laboratory workup independently interpreted by me and significant for no leukocytosis, mild hypermagnesemia, BNP essentially normal, minimally elevated, D-dimer within normal limits Imaging independently interpreted by me and significant for clear lungs bilaterally without evidence of focal opacity. See radiology read for full review of final results. EKG independently interpreted by me and significant for sinus rhythm, rate of 77, no significant ST elevation noted. On reassessment, blood pressure 150/95 without intervention. Repeat troponin negative. Patient symptomatically improved. No concern for emergent pathology at this time. Patient encouraged to follow-up with PCP for further evaluation. Discharge instructions given. Given patient history, exam and workup, patient's presentation most likely represents asymptomatic hypertension. Procedures Risk/Benefits of Procedure(s) Were Explained: Yes Critical Care Critical Care Time Critical Care Time: No
--- NOTE | 2023-08-06 19:58 | XR_ITS ---
PROCEDURE INFORMATION: Exam: XR Chest Exam date and time: 08/06/2023 8:01 PM Age: 58 years old Clinical indication: Sternal or substernal pain; Additional info: Cp TECHNIQUE: Imaging protocol: Radiologic exam of the chest. Views: 1 view. Total images: 1 COMPARISON: CT ANGIO CHEST PE PROTOCOL 07/19/2023 12:11 PM FINDINGS: Tubes, catheters and devices: EKG leads are present. Lungs: Unremarkable. No consolidation. No pulmonary vascular congestion or edema. Pleural spaces: Unremarkable. No pleural effusion. No pneumothorax. Heart/Mediastinum: Unremarkable. No cardiomegaly. No mediastinal widening or hilar enlargement. Bones/joints: Status post anterior cervical fusion. Moderate degenerative changes thoracic spine. Soft tissues: Breast attenuation artifact. IMPRESSION: No radiographically acute cardiopulmonary process.
--- NOTE | 2023-08-06 19:59 | ECG_ITS ---
APPROVED REPORT Exam: Resting ECG HR:77 bpm ECG Measurements Heart Rate 77 AXES AK 128 P 50 QRSd 90 QRS 53 QT 393 T 38 QTc 425 Conclusion SINUS RHYTHM MINIMAL ST DEPRESSION [0.025+ mV ST DEPRESSION] BORDERLINE ECG UNCONFIRMED REPORT Electronically signed by : Christophe Villarreal MD 08/07/2023 17:48:48
[2023-08-06 20:09] LABS: Chloride 102 mmol/L (98-107); Sodium 140 mmol/L (136-145)
[2023-08-06 20:11] LABS: Basophils # 0.1 K/mm3 (0-0.2); Basophils % 0.7 % (0.1-2.0); Eosinophils % 0.4 % (0.1-12.0); Hematocrit 42.9 % (37.0-47.0); Hemoglobin 14.2 g/dL (12.2-16.2); Lymphocytes # 2.6 K/mm3 (0.7-4.5); Lymphocytes % 38.4 % (10-50); Mean Corpuscular HGB Conc 33.1 g/dL (31.8-35.4); Mean Corpuscular Hemoglobin 29.4 pg (27.0-31.2); Mean Corpuscular Volume 88.8 fl (81-99); Mean Platelet Volume 8.3 fl (7.4-10.4); Monocytes # 0.4 K/mm3 (0.1-1.0); Monocytes % 6.4 % (1.7-9.3); Neutrophils # 3.6 K/mm3 (1.8-7.8); Neutrophils % 54.1 % (37.0-80.0); Platelet Count 312 K/mm3 (142-424); Red Blood Count 4.83 M/mm3 (4.20-5.40); Red Cell Distribution Width 13.5 % (11.5-17.5); White Blood Count 6.7 K/mm3 (4.8-10.8)
[2023-08-06 20:12] LABS: Alanine Aminotransferase 39 U/L (12-78); Albumin Level 4.6 g/dl (3.5-5.0); Albumin/Globulin Ratio 1.3 (1.1-1.8); Alkaline Phosphatase 135 U/L (38-126); Aspartate Amino Transferase 43 U/L (14-36); Bilirubin,Total 0.7 mg/dl (0.2-1.3); Blood Urea Nitrogen 7 mg/dl (7-17); Carbon Dioxide 31 mmol/L (22.0-30.0); Creatinine Clearance Estimated 82 mL/min (50-200); Estimated Glomerular Filt Rate 65 ml/min (>60); GFR (African American) 78 ML/MIN (>60); Globulin 3.6 g/dL (1.3-3.2); Total Protein,Serum 8.2 g/dl (6.3-8.2)
[2023-08-06 20:13] LABS: Calcium 9.5 mg/dl (8.4-10.2); Glucose 116 mg/dl (74-100)
[2023-08-06 20:22] LABS: NT Pro Brain Natriuretic Pep. 273 pg/mL (0-125)
[2023-08-06 20:32] LABS: Troponin I < 0.01 ng/ml (0.00-0.034)
[2023-08-06 20:35] LABS: D-Dimer 0.37 ug/mL (0.0-0.5)
[2023-08-06] MEDS: IBUPROFEN 600 MG TABLET PO (20:44)
[2023-08-06] MEDS: ACETAMINOPHEN 500MG TAB 1000 MG PO (20:44)
[2023-08-06 23:05] LABS: Troponin I < 0.01 ng/ml (0.00-0.034)
== END 2023-08-06 23:17 | disposition home or self-care (01) ==
PROVIDERS: Emergency Provider Emergency Medicine; PCP Internal Medicine
DX: R07.89 Other chest pain (principal); I10 Essential (primary) hypertension; E78.5 Hyperlipidemia, unspecified; E83.41 Hypermagnesemia
CPT/HCPCS: 71045; 80053; 83880; 84484; 85025; 85378; 93005; 99285

== ENCOUNTER 2023-08-28 21:22 | Outpatient (CLI) | payer MEDICARE, MEDICAID, SELFPAY ==
[2023-08-28 20:07] LABS: Chol/HDL Ratio 2.4 (1-3.5); Cholesterol 203 mg/dl (140-200); HDL Cholesterol 84 mg/dl (40-60); Triglycerides 143 mg/dl (30-150); VLDL Cholesterol 29 mg/dL (0-40)
[2023-08-28 20:18] LABS: Direct LDL Cholesterol 70.56 mg/dL (100-129)
== END 2023-08-28 23:59 ==
LOC: LAB.DROPOF 21:22
PROVIDERS: PCP Internal Medicine; Visit Provider Internal Medicine
DX: E78.5 Hyperlipidemia, unspecified (principal)
CPT/HCPCS: 80061

== ENCOUNTER 2023-09-01 15:27 | Emergency (ER) | payer MEDICARE, MEDICAID, SELFPAY ==
[2023-09-01] VITALS (7 sets, daily range): BP systolic 143–166; BP diastolic 90–113; PULSE 83–126; RESP 15–16; TEMP 36.6; O2SAT 97–100; BMI 25.0
--- NOTE | 2023-09-01 15:34 | ECG_ITS ---
APPROVED REPORT Exam: Resting ECG HR:119 bpm ECG Measurements Heart Rate 119 AXES ID 142 P 63 QRSd 86 QRS 57 QT 330 T 53 QTc 400 Conclusion SINUS TACHYCARDIA WITH FREQUENT VENTRICULAR PREMATURE COMPLEXES NONSPECIFIC T-WAVE ABNORMALITY ABNORMAL RHYTHM ECG UNCONFIRMED REPORT Electronically signed by : Christophe Villarreal MD 09/02/2023 21:17:55
--- NOTE | 2023-09-01 15:39 | PC.NURSE ---
Dr. Hassan at [facility] for pt eval
--- NOTE | 2023-09-01 15:46 | ED_ITS ---
Discharge Plan Disposition Patient Disposition: Home, Self-Care Prescriptions Prescriptions: New carvedilol 25 mg tablet 25 mg PO BID Qty: 60 0RF Rx Instructions: must administer with a meal/food No Action alprazolam 1 mg tablet 1 mg PO TID PRN (Reason: anxiety) Qty: 90 1RF gabapentin 800 mg tablet 800 mg PO TID 30 Days Qty: 90 0RF oxycodone-acetaminophen 10-325 mg tablet 1 tab PO Q6H PRN (Reason: pain) 30 Days Qty: 120 0RF tizanidine 4 mg capsule 8 mg PO TID PRN (Reason: muscle spasticity) 30 Days Qty: 180 1RF amitriptyline 25 mg tablet 25 mg PO HS 60 Days Qty: 60 3RF hydrochlorothiazide 25 mg tablet 25 mg PO DAILY 30 Days Qty: 30 2RF Rx Instructions: Patient is to check her blood pressure at home regularly. aspirin [Adult Low Dose Aspirin] 81 mg tablet,delayed release (DR/EC) 81 mg PO DAILY albuterol sulfate [Proventil HFA] 90 mcg/actuation HFA aerosol inhaler 2 puff inhalation Q8H PRN (Reason: shortness of breath or wheezing) Qty: 8.5 1RF omeprazole 40 mg capsule,delayed release(DR/EC) 40 mg PO DAILY Qty: 90 3RF rizatriptan [Maxalt] 10 mg tablet See Rx Instructions PO .COMPLEX Qty: 30 2RF Rx Instructions: take 1 tab at onset of headache; if no relief may repeat 1 tab after at least 2 hrs; max = 3 tabs/24 hr PO flecainide 50 mg tablet See Rx Instructions .ROUTE .COMPLEX Qty: 60 2RF Dose Instruction: TAKE ONE TABLET BY MOUTH TWICE DAILY FOR heart health Rx Instructions: TAKE ONE TABLET BY MOUTH TWICE DAILY FOR heart health metoprolol tartrate 50 mg tablet See Rx Instructions .ROUTE .COMPLEX Qty: 60 2RF Dose Instruction: TAKE ONE TABLET BY MOUTH TWICE DAILY FOR HIGH BLOOD PRESSURE Rx Instructions: TAKE ONE TABLET BY MOUTH TWICE DAILY FOR HIGH BLOOD PRESSURE tizanidine 2 mg tablet See Rx Instructions .ROUTE .COMPLEX Qty: 180 0RF Dose Instruction: TAKE TWO TABLETS BY MOUTH THREE TIMES DAILY MAY CAUSE DROWSINESS Rx Instructions: TAKE TWO TABLETS BY MOUTH THREE TIMES DAILY MAY CAUSE DROWSINESS Referrals Follow up/Referrals: Harjinder Lora DO [Primary Care Provider] - See instructions Activity Restrictions/Add. Instructions Additional Instructions/Restrictions: Discontinue taking hydrochlorothiazide. Start taking carvedilol. Follow-up with your family doctor for refills. Call your family doctor to establish care for this visit to the emergency department and schedule follow-up within 48 hours to ensure improvement. If you have any worsening of your condition or any other concerning signs or symptoms, return to the emergency department or your primary care doctor for further evaluation. Also follow-up with cardiology, Dr. Gallagher, for further antiarrhythmic medications. Clinical Impressions Clinical Impression: Tachycardia, Elevated troponin Discharge ED Provider: Hector Hassan General Adult HPI General Chief complaint: Arrhythmia/Palpitations Stated complaint: High blood pressure, high heart rate Time Seen by Provider: 09/01/23 15:31 Mode of Arrival: Ambulatory Source of Information: Patient Limitations: No Limitations Description of Symptoms (Recalled from ER Triage Doc. by RN): pt presents to ED with c/o heart palpitations. pt reports feeling like her heart racing out of her chest. pt reports she called her pcp to be seen but they advised her come to the ER. pt reports her BP medication was changed recently, pt is unsure of names of medications. History of Present Illness HPI narrative: 58 female with hypertension, heart, and anxiety, idiopathic tachycardia presenting with palpitations. Patient states that she has been following with cardiology and her primary care doctor for blood pressure and tachycardia. Taking flecainide, but was recently prescribed hydrochlorothiazide and taken off of metoprolol 2 days prior to this visit. Patient states that since that time her tachycardia and hypertension have gotten worse. Denies chest pain, shortness of breath, nausea or vomiting, diaphoresis, any other concerns. Related Data Home Medications Medication Instructions Recorded Confirmed aspirin 81 mg tablet,delayed 81 mg PO DAILY 09/26/22 08/28/23 release (Adult Low Dose Aspirin) Previous Rx's Medication Instructions Recorded rizatriptan 10 mg tablet (Maxalt) See Rx Instructions PO .COMPLEX 01/04/23 #30 tabs flecainide 50 mg tablet See Rx Instructions .Route 03/06/23 .COMPLEX #60 tabs albuterol sulfate 90 mcg/actuation 2 puff inhalation Q8H PRN 06/13/23 aerosol inhaler (Proventil HFA) shortness of breath or wheezing #8.5 grams metoprolol tartrate 50 mg tablet See Rx Instructions .Route 06/27/23 .COMPLEX #60 tabs omeprazole 40 mg capsule,delayed 40 mg PO DAILY #90 caps 07/18/23 release tizanidine 2 mg tablet See Rx Instructions .Route 08/15/23 .COMPLEX #180 tabs alprazolam 1 mg tablet 1 mg PO TID PRN anxiety #90 tabs 08/30/23 amitriptyline 25 mg tablet 25 mg PO HS 60 days #60 tabs 08/30/23 gabapentin 800 mg tablet 800 mg PO TID 30 days #90 tabs 08/30/23 hydrochlorothiazide 25 mg tablet 25 mg PO DAILY 30 days #30 tabs 08/30/23 oxycodone-acetaminophen 10 mg-325 1 tab PO Q6H PRN pain 30 days #120 08/30/23 mg tablet tabs tizanidine 4 mg capsule 8 mg PO TID PRN muscle spasticity 08/30/23 30 days #180 caps carvedilol 25 mg tablet 25 mg PO BID #60 tabs 09/01/23 Allergies Allergy/AdvReac Type Severity Reaction Status Date / Time naloxone Allergy Unknown Unknown Verified 08/28/23 13:34 allergy reaction codeine Allergy Unknown Verified 08/28/23 13:34 allergy reaction morphine Allergy Unknown Verified 08/28/23 13:34 allergy reaction paroxetine [From Paxil] Allergy Unknown Verified 08/28/23 13:34 allergy reaction PFSH PFSH Disclaimer: The information contained in this section may have been updated after the patient was seen, as this information can be updated by other users. Medical History Abnormal renal function Bleeding from right ear Fracture of left patella ROSETTE (obstructive sleep apnea) Syncope Syncope Social History Smoking Status: Former smoker second hand exposure: No alcohol intake: never substance use type: former substance user current occupational status: disabled Travel in the last 8 weeks: None household members: none housing: other current occupational exposures/hazards: No caffeine: No ROS Obtained: Yes All systems reviewed & no additional complaints except as documented Physical Exam General General appearance: alert and in no apparent distress Head Head exam: atraumatic and normocephalic Eye Eye exam: Present normal appearance, PERRL and EOMI ENT ENT exam: Present mucous membranes moist Neck Neck exam: Present normal inspection, full ROM and trachea midline Respiratory Respiratory exam: Absent respiratory distress, wheezes, stridor, accessory musc le use or prolonged expiratory phase Cardiovascular Cardiovascular exam: Present normal rhythm, tachycardia and other (Intermittent PVCs) Abdominal Exam Abdominal exam: Present soft; Absent distention, tenderness, guarding, rebound or rigidity Extremities Exam Extremities exam: Absent edema Neurological Exam Neurological exam: Present alert, oriented X3, CN II-XII intact and normal gait; Absent motor sensory deficit Skin Skin exam: Present warm and dry; Absent diaphoresis or erythema Medical Decision Making Medical Records Medical records reviewed: Yes I reviewed the patient's medical records. [place] Inquiry Pt receiving controlled substance: No [place] was queried for this patient: No Vital Signs: 09/01/23 15:29 09/01/23 16:22 09/01/23 16:30 Temperature 97.9 F Temperature Source Oral Pulse Rate 104 H 102 H Pulse Rate [Left Radial] 126 H Respiratory Rate 15 Blood Pressure 159/92 H 143/94 H Blood Pressure [Right Arm] 166/112 H Blood Pressure Mean 114 105 Blood Pressure Mean [Right Arm] 130 02 Sat by Pulse Oximetry 97 99 99 Oxygen Delivery Method Room Air Room Air Room Air 09/01/23 17:30 09/01/23 18:00 09/01/23 18:30 Temperature Temperature Source Pulse Rate 99 H 106 H 95 H Pulse Rate [Left Radial] Respiratory Rate Blood Pressure 146/113 H 148/100 H 148/95 H Blood Pressure [Right Arm] Blood Pressure Mean 124 116 109 Blood Pressure Mean [Right Arm] 02 Sat by Pulse Oximetry 97 99 97 Oxygen Delivery Method Room Air Room Air Room Air Lab Data Lab Results 09/01/23 15:56: WBC 6.8, RBC 4.58, Hgb 13.9, Hct 41.2, MCV 89.9, MCH 30.2, MCHC 33.6, RDW 13.3, Plt Count 319, MPV 8.0, Neut % (Auto) 51.0, Lymph % (Auto) 42.9, [place] % (Auto) 4.5, Eos % (Auto) 0.3, Baso % (Auto) 1.3, Neut # (Auto) 3.5, Lymph # (Auto) 2.9, [place] # (Auto) 0.3, Eos # (Auto) 0.0, Baso # (Auto) 0.1, D-Dimer 0.67 H, Sodium 140, Potassium 3.7, Chloride 100, Carbon Dioxide 30, Anion Gap 13.7, BUN 9, Creatinine 1.10 H, Estimated Creat Clear 65, Estimated GFR 51 L, Est GFR ( Amer) 62, Glucose 120 H, Calcium 9.6, Magnesium 2.2, Total Bilirubin 0.4, AST 31, ALT 24, Alkaline Phosphatase 126, Troponin I 0.04 H, NT-Pro-B Natriuret Pep 102, Total Protein 8.1, Albumin 4.5, Globulin 3.6 H, Albumin/Globulin Ratio 1.3, TSH 0.48, Thyroxine (T4) 9.4 09/01/23 18:35: Troponin I 0.05 H 09/01/23 15:56 09/01/23 15:56 Orders (Tests/Meds): ED MEDICATIONS Discontinued Medications Generic Name Dose Route Start Last Admin Trade Name Miguelq PRN Reason Stop Dose Admin Aspirin 324 mg 09/01/23 16:44 09/01/23 17:04 Aspirin 81mg Chewable Tablet PO 09/01/23 16:45 324 mg ONCE ONE Administration Carvedilol 25 mg 09/01/23 16:44 09/01/23 17:20 Carvedilol 25mg Tablet PO 09/01/23 16:45 25 mg ONCE ONE Administration Iopamidol 75 ml 09/01/23 17:03 09/01/23 17:05 Iopamidol-370 (76%);100ml Bottle IV 09/01/23 17:04 75 ml ONCE ONE Administration Sodium Chloride 10 ml 09/01/23 17:03 09/01/23 17:05 Sodium Chloride 0.9% 10ml Syr (Rad Only) IV 09/01/23 17:04 10 ml ONCE ONE Administration Sodium Chloride 50 ml 09/01/23 17:03 09/01/23 17:05 0.9 % Sodium Chloride 50 Ml Vial IV 09/01/23 17:04 50 ml ONCE ONE Administration ORDERS Category Date Time Status CT angio chest PE protocol Stat Cat Scan 09/01/23 16:43 Completed Brain Natriuretic Peptide Stat Lab 09/01/23 15:56 Completed CBC w/Auto Diff [Complete Blood Count Auto Diff] Stat Lab 09/01/23 15:56 Completed CMP [Comprehensive Metabolic Panel] Stat Lab 09/01/23 15:56 Completed D-Dimer Stat Lab 09/01/23 15:56 Completed Magnesium Stat Lab 09/01/23 15:56 Completed T4 (Thyroxine) Stat Lab 09/01/23 15:56 Completed TSH [Thyroid Stimulating Hormone] Stat Lab 09/01/23 15:56 Completed Trop I [Troponin I] Stat Lab 09/01/23 15:56 Completed Troponin I Q3H Lab 09/01/23 18:35 Completed Troponin I Q3H Lab 09/01/23 22:00 Ordered ECG initial [place] Routine Y 09/01/23 15:34 Completed Medical Decision Narrative: 58 female with hypertension, heart, and anxiety, idiopathic tachycardia presenting with palpitations. Patient states that she has been following with cardiology and her primary care doctor for blood pressure and tachycardia. Taking flecainide, but was recently prescribed hydrochlorothiazide and taken off of metoprolol 2 days prior to this visit. Patient states that since that time her tachycardia and hypertension have gotten worse. Denies chest pain, shortness of breath, nausea or vomiting, diaphoresis, any other concerns. It should be noted that patient recently had medication changes which is complicating her care. History was obtained via conversation with patient. On arrival, patient hemodynamically stable, alert, oriented x4, appropriate, GCS 15, moving all extremities spontaneously, pupils equal and reactive to light. Full physical exam performed and significant for tachycardic, in no acute di stress. Patient does not appear anxious. She is also hypertensive. Saturating appropriately without any acute complaints other than palpitations. Differential includes ACS, MA, PE, pneumonia, bronchitis, medication side effect, withdrawal side effect,. Patient was given Coreg, aspirin for symptomatic management and correction of underlying abnormalities. Workup independently interpreted and significant for initial troponin 0.04. D- dimer elevated 0.67. Nonactionable CBC or chemistry. BNP negative. CTA chest without acute pulmonary embolus or cardiopulmonary disease see radiology read for full review of final results. Independent interpretation of EKG shows sinus tachycardia [address] or T wave changes concerning for acute ischemia. Intermittent PVCs. No right heart strain. Patient was placed in observation beginning at 430 in order to rule out evolving MA with serial troponins and determine need for admission versus home-going. The patient was provided serial troponins, monitoring, CTA of the chest while awaiting results. Independent interpretation of results demonstrated delta troponin of 0.01, likely induced from tachycardia. On reevaluation, patient resting comfortably in bed. At this time, I feel patient is appropriate for discharge. Total observation time 3 hours. Because patient at baseline without signs or symptoms of clinical decompensation, deemed appropriate for discharge. Results were relayed to patient who voiced understanding and were agreeable to outpatient management and follow up. At the time of discharge the patient was hemodynamically stable, tolerating PO, and mobilizing appropriately. Critical Care Critical Care Time Critical Care Time: No
[2023-09-01 16:03] LABS: Basophils # 0.1 K/mm3 (0-0.2); Basophils % 1.3 % (0.1-2.0); Eosinophils % 0.3 % (0.1-12.0); Hematocrit 41.2 % (37.0-47.0); Hemoglobin 13.9 g/dL (12.2-16.2); Lymphocytes # 2.9 K/mm3 (0.7-4.5); Lymphocytes % 42.9 % (10-50); Mean Corpuscular HGB Conc 33.6 g/dL (31.8-35.4); Mean Corpuscular Hemoglobin 30.2 pg (27.0-31.2); Mean Corpuscular Volume 89.9 fl (81-99); Monocytes # 0.3 K/mm3 (0.1-1.0); Monocytes % 4.5 % (1.7-9.3); Neutrophils # 3.5 K/mm3 (1.8-7.8); Platelet Count 319 K/mm3 (142-424); Red Blood Count 4.58 M/mm3 (4.20-5.40); Red Cell Distribution Width 13.3 % (11.5-17.5); White Blood Count 6.8 K/mm3 (4.8-10.8)
[2023-09-01 16:13] LABS: Alanine Aminotransferase 24 U/L (12-78); Albumin Level 4.5 g/dl (3.5-5.0); Albumin/Globulin Ratio 1.3 (1.1-1.8); Alkaline Phosphatase 126 U/L (38-126); Anion Gap 13.7 mEq/L (5-15); Aspartate Amino Transferase 31 U/L (14-36); Bilirubin,Total 0.4 mg/dl (0.2-1.3); Blood Urea Nitrogen 9 mg/dl (7-17); Calcium 9.6 mg/dl (8.4-10.2); Carbon Dioxide 30 mmol/L (22.0-30.0); Chloride 100 mmol/L (98-107); Creatinine Clearance Estimated 65 mL/min (50-200); Estimated Glomerular Filt Rate 51 ml/min (>60); GFR (African American) 62 ML/MIN (>60); Globulin 3.6 g/dL (1.3-3.2); Glucose 120 mg/dl (74-100); Magnesium 2.2 mg/dl (1.6-2.3); Potassium 3.7 mmoL/L (3.5-5.1); Sodium 140 mmol/L (136-145); Total Protein,Serum 8.1 g/dl (6.3-8.2)
[2023-09-01 16:26] LABS: NT Pro Brain Natriuretic Pep. 102 pg/mL (0-125); Troponin I 0.04 ng/ml (0.00-0.034)
[2023-09-01 16:27] LABS: D-Dimer 0.67 ug/mL (0.0-0.5)
[2023-09-01 16:30] LABS: T4 (Thyroxine) 9.4 ug/dl (5.53-11.0)
--- NOTE | 2023-09-01 16:43 | CT_ITS ---
PROCEDURE INFORMATION: Exam: CTA Chest With Contrast Exam date and time: 09/01/2023 4:59 PM Age: 58 years old Clinical indication: Other: Tachycardia, elevated dimer; Additional info: Tachycardia, SOA, elevated dimer TECHNIQUE: Imaging protocol: Computed tomographic angiography of the chest with contrast. Exam focused on the arteries. 3D rendering (Not supervised by radiologist): MIP and/or 3D reconstructed images were created by the technologist. Radiation optimization: All CT scans at this facility use at least one of these dose optimization techniques: automated exposure control; mA and/or kV adjustment per patient size (includes targeted exams where dose is matched to clinical indication); or iterative reconstruction. Contrast material: ISOVUE; Contrast volume: 100 ml; Contrast route: INTRAVENOUS (IV); COMPARISON: CT ANGIO CHEST PE PROTOCOL 07/19/2023 12:11 PM FINDINGS: Pulmonary arteries: Normal. No pulmonary emboli. Aorta: Unremarkable. No aortic aneurysm. No aortic dissection. Lungs: Unremarkable. No consolidation. No masses. Pleural spaces: Unremarkable. No pneumothorax. No pleural effusion. Heart: Unremarkable. No cardiomegaly. No pericardial effusion. Lymph nodes: Unremarkable. No enlarged lymph nodes. Bones/joints: Unremarkable. No acute fracture. Soft tissues: Unremarkable. IMPRESSION: No acute findings. No CTA evidence of pulmonary embolus.
[2023-09-01 16:44] LABS: Thyroid Stimulating Hormone 0.48 uIU/mL (0.465-4.68)
[2023-09-01] MEDS: ASPIRIN 81MG CHEWABLE TABLET 324 MG PO (17:04)
[2023-09-01] MEDS: IOPAMIDOL-370 (76%);100ML BOTTLE 75 ML IV (17:05)
[2023-09-01] MEDS: SODIUM CHLORIDE 0.9% 10ML SYR (RAD ONLY) 10 ML IV (17:05)
[2023-09-01] MEDS: 0.9 % SODIUM CHLORIDE 50 ML VIAL IV (17:05)
[2023-09-01] MEDS: CARVEDILOL 25MG TABLET 25 MG PO (17:20)
[2023-09-01 19:04] LABS: Troponin I 0.05 ng/ml (0.00-0.034)
== END 2023-09-01 19:46 | disposition home or self-care (01) ==
PROVIDERS: Emergency Provider Emergency Medicine; PCP Internal Medicine
DX: R00.0 Tachycardia, unspecified (principal); R00.2 Palpitations; R77.8 Other specified abnormalities of plasma proteins; I10 Essential (primary) hypertension; G47.33 Obstructive sleep apnea (adult) (pediatric); I49.3 Ventricular premature depolarization; Z87.891 Personal history of nicotine dependence
CPT/HCPCS: 71275; 80053; 83735; 83880; 84436; 84443; 84484; 85025; 85378; 93005; 99285; Q9967

== ENCOUNTER 2023-09-14 08:39 | Outpatient (CLI) | payer MEDICARE, MEDICAID, SELFPAY ==
--- NOTE | 2023-09-14 08:41 | CA_ITS ---
FINAL REPORT TECHNIQUE: Grayscale, color Doppler and duplex Doppler ultrasound of the kidneys, aorta and renal arteries was performed. Multiple velocities were measured. CLINICAL HISTORY: HTN COMPARISON: None FINDINGS: Aorta velocity: 182 cm/sec Right kidney: 8.7 cm. No evidence of hydronephrosis or mass. Right intrarenal RI: 0.52-0.64 Right renal artery velocity: 180 cm/sec. Right RAR (Renal artery-Aortic Ratio): 0.99 Left Kidney: cm. No evidence of hydronephrosis or mass. Left intrarenal RI: 0.47-0.70 Left renal artery velocity: 184 cm/sec. Left RAR (Renal Artery-Aortic Ratio): 1.01 IMPRESSION: Less than 60% renal artery stenosis. CT angiogram or postcontrast MR angiogram would be more sensitive for evaluation of possible renal artery stenosis. Reviewed, Interpreted and Dictated by Emanuel Ignacio III, MD Transcribed by Bernadette Roblero Authenticated and [facility]
--- NOTE | 2023-09-14 09:18 | US_ITS ---
FINAL REPORT CLINICAL HISTORY: I10 - Essential (primary) hypertension COMPARISON: 05/01/2020 FINDINGS: RENAL ULTRASOUND: The right kidney measures 8.7 cm in length. There is no evidence of mass, hydronephrosis, or perinephric fluid collections. The left kidney measures 9.5 cm in length. There is no evidence of mass, hydronephrosis, or perinephric fluid collections. IMPRESSION: Unremarkable renal ultrasound. Reviewed, Interpreted and Dictated by Emanuel Ignacio III, MD Transcribed by Livia Pryor Authenticated and [facility]
[2023-09-14 09:23] LABS: Basophils % 0.4 % (0.1-2.0); Eosinophils % 0.5 % (0.1-12.0); Hematocrit 38.6 % (37.0-47.0); Hemoglobin 12.9 g/dL (12.2-16.2); Lymphocytes # 1.8 K/mm3 (0.7-4.5); Lymphocytes % 34.6 % (10-50); Mean Corpuscular HGB Conc 33.4 g/dL (31.8-35.4); Mean Corpuscular Hemoglobin 29.7 pg (27.0-31.2); Mean Corpuscular Volume 88.9 fl (81-99); Mean Platelet Volume 7.7 fl (7.4-10.4); Monocytes # 0.3 K/mm3 (0.1-1.0); Monocytes % 4.6 % (1.7-9.3); Neutrophils # 3.2 K/mm3 (1.8-7.8); Neutrophils % 59.9 % (37.0-80.0); Platelet Count 358 K/mm3 (142-424); Red Blood Count 4.34 M/mm3 (4.20-5.40); Red Cell Distribution Width 13.4 % (11.5-17.5); White Blood Count 5.3 K/mm3 (4.8-10.8)
[2023-09-14 09:54] LABS: Chloride 103 mmol/L (98-107)
[2023-09-14 09:55] LABS: Potassium 4.5 mmoL/L (3.5-5.1); Sodium 140 mmol/L (136-145)
[2023-09-14 09:57] LABS: Alanine Aminotransferase 25 U/L (12-78); Albumin Level 4.2 g/dl (3.5-5.0); Albumin/Globulin Ratio 1.4 (1.1-1.8); Alkaline Phosphatase 105 U/L (38-126); Anion Gap 6.5 mEq/L (5-15); Aspartate Amino Transferase 28 U/L (14-36); Bilirubin,Total 0.7 mg/dl (0.2-1.3); Blood Urea Nitrogen 12 mg/dl (7-17); Carbon Dioxide 35 mmol/L (22.0-30.0); Estimated Glomerular Filt Rate 57 ml/min (>60); GFR (African American) 69 ML/MIN (>60); Globulin 3.1 g/dL (1.3-3.2); Total Protein,Serum 7.3 g/dl (6.3-8.2)
[2023-09-14 09:58] LABS: Calcium 9.6 mg/dl (8.4-10.2); Chol/HDL Ratio 2.6 (1-3.5); Cholesterol 266 mg/dl (140-200); Glucose 103 mg/dl (74-100); HDL Cholesterol 101 mg/dl (40-60); Triglycerides 161 mg/dl (30-150); VLDL Cholesterol 32 mg/dL (0-40)
[2023-09-14 10:28] LABS: Thyroid Stimulating Hormone 0.47 uIU/mL (0.465-4.68)
[2023-09-14 10:34] LABS: Direct LDL Cholesterol 93.73 mg/dL (100-129)
[2023-09-15 03:44] LABS: Estradiol 32.9 pg/mL (.); FSH 58.7 mIU/mL (.); Progesterone 0.3 ng/mL (.)
[2023-09-22 09:36] LABS: Free Testosterone (Direct) 0.7 pg/mL (0.0-4.2); Testosterone, Total, LC/MS 25.6 ng/dL (.)
== END 2023-09-14 23:59 ==
LOC: RT 08:40
PROVIDERS: Obstetrics & Gynecology; PCP Internal Medicine; Visit Provider Physician Assistant
DX: I10 Essential (primary) hypertension (principal); R09.89 Other specified symptoms and signs involving the circulatory and respiratory systems
CPT/HCPCS: 36415; 76770; 80053; 80061; 82670; 83001; 84144; 84443; 85025; 93976

== ENCOUNTER 2023-09-25 12:05 | Outpatient (CLI) | payer MEDICARE, MEDICAID, SELFPAY ==
[2023-09-25 13:06] LABS: Magnesium 2.2 mg/dl (1.6-2.3)
[2023-09-29 20:09] LABS: Metanephrine, U,24hr 41 ug/24 hr (36-209); Metanephrine, Ur 36 ug/L (Undefined); Normetanephr.,U,24h 153 ug/24 hr (131-612); Normetanephrine, Ur 133 ug/L (Undefined)
[2023-09-30 06:29] LABS: Dopamine, Plasma 75 pg/mL (0-48); Epinephrine, Plasma 35 pg/mL (0-62); Norepinephrine, Plasma 1208 pg/mL (0-874)
[2023-10-04 14:43] LABS: Dopamine, Ur, 24hr 82 ug/24 hr (0-510); Dopamine, Urine 71 ug/L (Undefined); Epinephrine, U, 24hr <3 ug/24 hr (0-20); Epinephrine, Urine <3 ug/L (Undefined); Norepinephrine, Ur 24 ug/L (Undefined); Norepinephrine,U,24h 28 ug/24 hr (0-135); VMA, Urine 1.5 mg/L (Undefined); VMA, Urine, 24hr 1.7 mg/24 hr (0.0-7.5)
[2023-10-05 10:13] LABS: Metanephrine Plasma 28.7 pg/mL (0.0-88.0); Normetanephrine Plasma 190.7 pg/mL (0.0-244.0)
[2023-10-07 08:47] LABS: Renin 0.674
== END 2023-09-25 23:59 ==
LOC: LAB 12:07
PROVIDERS: PCP Internal Medicine; Visit Provider Physician Assistant
DX: I10 Essential (primary) hypertension (principal)
CPT/HCPCS: 36415; 82088; 82384; 83735; 83835; 84244; 84585

== ENCOUNTER 2023-10-06 13:12 | Outpatient (CLI) | payer MEDICARE, MEDICAID, SELFPAY ==
[2023-10-06 13:06] LABS: Coronavirus 19, PCR Not Detected (NotDetected); Influenza A, PCR Not Detected (NotDetected); Influenza B, PCR Not Detected (NotDetected)
== END 2023-10-06 23:59 ==
LOC: LAB.DROPOF 13:12
PROVIDERS: PCP Internal Medicine; Visit Provider Internal Medicine
DX: R07.0 Pain in throat (principal); R09.81 Nasal congestion; H92.09 Otalgia, unspecified ear
CPT/HCPCS: 87636

== ENCOUNTER 2023-11-16 10:32 | Outpatient (POV) | payer MEDICARE, MEDICAID, SELFPAY ==
[2023-11-16 10:36] VITALS: BP 190/89; PULSE 61; RESP 18; O2SAT 96; BMI 26.6
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
== END 2023-11-16 23:59 ==
LOC: SC.PAIN 10:33
PROVIDERS: PCP Internal Medicine; Visit Provider Nurse Practitioner Family
DX: M96.1 Postlaminectomy syndrome, not elsewhere classified; M51.16 Intervertebral disc disorders with radiculopathy, lumbar region
CPT/HCPCS: 99202; G0463

== ENCOUNTER 2023-11-30 07:23 | Outpatient (CLI) | payer MEDICARE, MEDICAID, SELFPAY ==
--- NOTE | 2023-11-30 07:24 | CT_ITS ---
FINAL REPORT TECHNIQUE: Axial CT images were performed from the lung bases through the iliac crests. Coronal and sagittal reformats were submitted.This study was performed with techniques to keep radiation doses as low as reasonably achievable (ALARA). Individualized dose reduction techniques using automated exposure control or adjustment of mA and/or kV according to the patient''''s size were employed. CLINICAL HISTORY: elevated blood pressure FINDINGS: The lung bases are clear. There is a left hepatic cyst. Liver is otherwise normal. The spleen, pancreas, and adrenals are unremarkable. There is no evidence of nephrolithiasis or hydronephrosis. There is no mass or adenopathy. Appendix is incompletely visualized. Reviewed, Interpreted and Dictated by Min Gilbert MD Transcribed by Hilaria Casneco Authenticated and . [facility]
== END 2023-11-30 23:59 | disposition home or self-care (01) ==
LOC: RAD 07:24
PROVIDERS: PCP Internal Medicine; Visit Provider Internal Medicine
DX: I10 Essential (primary) hypertension (principal); N28.9 Disorder of kidney and ureter, unspecified
CPT/HCPCS: 74150

== ENCOUNTER 2023-12-17 08:13 | Emergency (ER) | payer MEDICARE, MEDICAID, SELFPAY ==
[2023-12-17 08:13] VITALS: BP 106/62; PULSE 79; RESP 16; TEMP 36.4; O2SAT 94; BMI 27.2
[2023-12-17 08:30] VITALS: BP 105/58; RESP 12
--- NOTE | 2023-12-17 08:39 | CT_ITS ---
PROCEDURE INFORMATION: Exam: CTA Head With Contrast, Arteriography Exam date and time: 12/17/2023 9:28 AM Age: 58 years old Clinical indication: Dizziness and giddiness and memory loss; Type not specified; Additional info: AMS, lue coordination and diplopia TECHNIQUE: Imaging protocol: Computed tomographic angiography of the head with contrast. Exam focused on the arteries. 3D rendering (Not supervised by radiologist): MIP and/or 3D reconstructed images were created by the technologist. Radiation optimization: All CT scans at this facility use at least one of these dose optimization techniques: automated exposure control; mA and/or kV adjustment per patient size (includes targeted exams where dose is matched to clinical indication); or iterative reconstruction. Contrast material: ISOVUE; Contrast volume: 100 ml; Contrast route: INTRAVENOUS (IV); COMPARISON: CT HEAD/BRAIN WO CON 12/17/2023 9:25 AM FINDINGS: ANTERIOR CIRCULATION: Right internal carotid artery: Patent stent within the right carotid siphon. No occlusion or significant stenosis. Right middle cerebral artery: No occlusion or significant stenosis. No aneurysm. Right anterior cerebral artery: No occlusion or significant stenosis. No aneurysm. Left internal carotid artery: Intracranial segment is patent with no significant stenosis. No aneurysm. Left middle cerebral artery: No occlusion or significant stenosis. No aneurysm. Left anterior cerebral artery: No occlusion or significant stenosis. No aneurysm. POSTERIOR CIRCULATION: Right vertebral artery: No occlusion or significant stenosis. No aneurysm. Left vertebral artery: No occlusion or significant stenosis. No aneurysm. Basilar artery: No occlusion or significant stenosis. Small fenestration noted within the midportion of the basilar artery likely developmental in nature. Right posterior cerebral artery: No occlusion or significant stenosis. No aneurysm. Left posterior cerebral artery: No occlusion or significant stenosis. No aneurysm. Brain: No intracranial hemorrhage, mass effect, or midline shift. Cerebral ventricles: No ventriculomegaly. Paranasal sinuses: Mild polypoid mucosal thickening right maxillary sinus. Bones/joints: Unremarkable. No acute fracture. Soft tissues: Unremarkable. IMPRESSION: 1. No large vessel occlusion or significant stenosis. 2. Patent right internal carotid artery stent. 3. 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
--- NOTE | 2023-12-17 08:39 | CT_ITS ---
PROCEDURE INFORMATION: Exam: CTA Neck With Contrast Exam date and time: 12/17/2023 9:28 AM Age: 58 years old Clinical indication: Dizziness and giddiness and other: Forgetfulness worsening; Additional info: AMS, lue coordination and diplopia TECHNIQUE: Imaging protocol: Computed tomographic angiography of the neck with contrast. Exam focused on the cervical segments of the vasculature. 3D rendering (Not supervised by radiologist): MIP and/or 3D reconstructed images were created by the technologist. Radiation optimization: All CT scans at this facility use at least one of these dose optimization techniques: automated exposure control; mA and/or kV adjustment per patient size (includes targeted exams where dose is matched to clinical indication); or iterative reconstruction. Contrast material: ISOVUE; Contrast volume: 100 ml; Contrast route: INTRAVENOUS (IV); COMPARISON: CT CERVICAL SPINE WO CON 12/01/2021 10:43 AM FINDINGS: Right common carotid artery: No stenosis. No dissection or occlusion. Right internal carotid artery: No stenosis of the extracranial segment. No dissection or occlusion. Right external carotid artery: No occlusion or stenosis of the origin. Left common carotid artery: No stenosis. No dissection or occlusion. Left internal carotid artery: No stenosis of the extracranial segment. No dissection or occlusion. Left external carotid artery: No occlusion or stenosis of the origin. Right vertebral artery: No stenosis. No dissection or occlusion. Left vertebral artery: No stenosis. No dissection or occlusion. Soft tissues: Normal. No significant soft tissue swelling. Bones/joints: No acute fracture. Prior ACDF C6-C7. Anterior degenerative endplate osteophytes lower cervical spine. IMPRESSION: No stenosis or occlusion. REFERENCES: NASCET CRITERIA. The degree of stenosis in the cervical segment of the internal carotid artery is based on NASCET criteria. Normal is no stenosis. Mild is less than 50% stenosis. Moderate is 50-69% stenosis. Severe is 70% to 99% stenosis. Total occlusion is no detectable patent lumen.
--- NOTE | 2023-12-17 08:39 | CT_ITS ---
PROCEDURE INFORMATION: Exam: CT Head Without Contrast Exam date and time: 12/17/2023 9:25 AM Age: 58 years old Clinical indication: Altered mental status/memory loss and dizziness; Additional info: AMS, lue coordination and diplopia TECHNIQUE: Imaging protocol: Computed tomography of the head without contrast. Radiation optimization: All CT scans at this facility use at least one of these dose optimization techniques: automated exposure control; mA and/or kV adjustment per patient size (includes targeted exams where dose is matched to clinical indication); or iterative reconstruction. COMPARISON: CT CERVICAL SPINE WO CON 12/01/2021 10:43 AM FINDINGS: Brain: Normal. No hemorrhage. Unremarkable white matter. No mass effect. Cerebral ventricles: No ventriculomegaly. Paranasal sinuses: Moderate mucosal thickening is seen in the ethmoid air cells. Air-fluid level in right maxillary sinus can be seen with acute sinusitis. Mastoid air cells: Visualized mastoid air cells are well aerated. Bones: Unremarkable. No acute fracture. Soft tissues: Unremarkable. IMPRESSION: No acute findings. Moderate mucosal thickening in the ethmoid air cells. Air-fluid level in right maxillary sinus can be seen with acute sinusitis.
--- NOTE | 2023-12-17 08:40 | XR_ITS ---
PROCEDURE INFORMATION: Exam: XR Chest Exam date and time: 12/17/2023 9:05 AM Age: 58 years old Clinical indication: Dyspnea TECHNIQUE: Imaging protocol: Radiologic exam of the chest. Views: 1 view. COMPARISON: CT ANGIO CHEST PE PROTOCOL 09/01/2023 4:59 PM FINDINGS: Lungs: Unremarkable. No consolidation. Pleural spaces: Unremarkable. No pleural effusion. No pneumothorax. Heart/Mediastinum: Unremarkable. No cardiomegaly. Bones/joints: Unremarkable. IMPRESSION: No acute findings.
--- NOTE | 2023-12-17 08:47 | ED_ITS ---
Discharge Plan Disposition Patient Disposition: Home, Self-Care Prescriptions Prescriptions: New cefdinir 300 mg capsule 300 mg PO BID 10 Days Qty: 20 0RF No Action aspirin [Adult Low Dose Aspirin] 81 mg tablet,delayed release (DR/EC) 81 mg PO DAILY albuterol sulfate [Proventil HFA] 90 mcg/actuation HFA aerosol inhaler 2 puff inhalation Q8H PRN (Reason: shortness of breath or wheezing) Qty: 8.5 1RF omeprazole 40 mg capsule,delayed release(DR/EC) 40 mg PO DAILY Qty: 90 3RF gabapentin 800 mg tablet 800 mg PO TID 30 Days Qty: 90 1RF oxycodone-acetaminophen 10-325 mg tablet 1 tab PO Q6H PRN (Reason: pain) 30 Days Qty: 120 0RF irbesartan 75 mg tablet 75 mg PO HS Qty: 30 2RF metoprolol succinate 50 mg tablet extended release 24 hr 50 mg PO BID 30 Days Qty: 60 3RF rizatriptan [Maxalt] 10 mg tablet See Rx Instructions PO .COMPLEX Qty: 30 2RF Rx Instructions: take 1 tab at onset of headache; if no relief may repeat 1 tab after at least 2 hrs; max = 3 tabs/24 hr PO quetiapine 100 mg tablet 100 mg PO HS 30 Days Qty: 30 3RF tizanidine 4 mg capsule 8 mg PO TID PRN (Reason: muscle spasticity) 30 Days Qty: 180 4RF flecainide 50 mg tablet See Rx Instructions .ROUTE .COMPLEX Qty: 60 2RF Dose Instruction: TAKE ONE TABLET BY MOUTH TWICE DAILY FOR heart health Rx Instructions: TAKE ONE TABLET BY MOUTH TWICE DAILY FOR heart health ondansetron 8 mg tablet,disintegrating 8 mg PO Q12H PRN (Reason: nausea and vomiting) Qty: 20 0RF Referrals Follow up/Referrals: Harjinder Lora DO [Primary Care Provider] - See instructions Activity Restrictions/Add. Instructions Additional Instructions/Restrictions: Your altered mental status that has since resolved is likely a combination of your urinary tract infection and transient low blood pressure. There is no evidence of sepsis or shock and your symptoms seem to have completely resolved prior to being discharged. Please take antibiotics as prescribed follow-up closely with primary care doctor return with any worsening of your symptoms. No other alternative diagnosis was found in your emergent valuation today. Clinical Impressions Clinical Impression: Acute encephalopathy, UTI (urinary tract infection) Instructions Patient Instructions: DI for Altered Mental Status Discharge ED Provider: Lazara Kelsey General Adult HPI General Chief complaint: Altered Mental Status Stated complaint: AMS Time Seen by Provider: 12/17/23 08:26 Mode of Arrival: EMS Source of Information: Patient and EMS Limitations: No Limitations Description of Symptoms (Recalled from ER Triage Doc. by RN): EMS reports patient has an altered mental status. States that she was hallucinating. Patient reports she was seeing people that wasn't there and that she was talking to them. Reports that she took her Metoprolol last night and took it again this morning. History of Present Illness HPI narrative: Patient is a 58-year-old female presents today with altered mental status. She is accompanied by her family and her daughter granddaughter and her boyfriend. They state that she has been slowly worsening over the last 6 months forgetting things she states she has had some diplopia since that time went to an radio program director and got new glasses which did not help. She also states she has had some discoordination with her left upper extremity. Also states that in the late she was diagnosed with a pituitary tumor and she had a resection at that time they told her it was so large that they could not get it all. No imaging of her brain since that time. She has a history of using Xanax. Tells everyone that she promised that she has not been taking any of these or having any withdrawal of any medications recently. EMS states that when they picked her up today that she was significantly hypotensive with systolic blood pressures in the 60s and 90s upon reassessment. She is on multiple blood pressure medications actually in fact went up on her blood pressure medications recently. She denies any fevers chills cough urinary symptoms respiratory symptoms or other complaints. No significant pain anywhere. Related Data Home Medications Medication Instructions Recorded Confirmed aspirin 81 mg tablet,delayed 81 mg PO DAILY 09/26/22 11/20/23 release (Adult Low Dose Aspirin) Previous Rx's Medication Instructions Recorded rizatriptan 10 mg tablet (Maxalt) See Rx Instructions PO .COMPLEX 01/04/23 #30 tabs albuterol sulfate 90 mcg/actuation 2 puff inhalation Q8H PRN 06/13/23 aerosol inhaler (Proventil HFA) shortness of breath or wheezing #8.5 grams omeprazole 40 mg capsule,delayed 40 mg PO DAILY #90 caps 07/18/23 release quetiapine 100 mg tablet 100 mg PO HS 30 days #30 tabs 09/29/23 tizanidine 4 mg capsule 8 mg (2 x 4 mg) PO TID PRN muscle 11/09/23 spasticity 30 days #180 caps gabapentin 800 mg tablet 800 mg PO TID 30 days #90 tabs 11/20/23 irbesartan 75 mg tablet 75 mg PO HS #30 tabs 11/20/23 metoprolol succinate 50 mg 50 mg PO BID 30 days #60 tabs 11/20/23 tablet,extended release 24 hr oxycodone-acetaminophen 10 mg-325 1 tab PO Q6H PRN pain 30 days #120 11/20/23 mg tablet tabs flecainide 50 mg tablet See Rx Instructions .Route 12/06/23 .COMPLEX #60 tabs ondansetron 8 mg disintegrating 8 mg PO Q12H PRN nausea and 12/08/23 tablet vomiting #20 tabs cefdinir 300 mg capsule 300 mg PO BID 10 days #20 caps 12/17/23 Allergies Allergy/AdvReac Type Severity Reaction Status Date / Time naloxone Allergy Unknown Unknown Verified 11/20/23 09:59 allergy reaction codeine Allergy Unknown Verified 11/20/23 09:59 allergy reaction morphine Allergy Unknown Verified 11/20/23 09:59 allergy reaction paroxetine [From Paxil] Allergy Unknown Verified 11/20/23 09:59 allergy reaction [facility] Disclaimer: The information contained in this section may have been updated after the patient was seen, as this information can be updated by other users. Medical History Brain tumor Brain tumor (benign) This is in the old history we will just follow for now. Abnormal renal function Bleeding from right ear Syncope Syncope ROSETTE (obstructive sleep apnea) Fracture of left patella Surgical History History of brain surgery History of hand surgery H/O: hysterectomy has ovaries History of back surgery Family History Other Anemia Asthma Cancer Coronary artery disease Heart attack Hypertension Thyroid disorder Social History Smoking Status: Never smoker second hand exposure: No alcohol intake: never substance use type: former substance user current occupational status: other Travel in the last 8 weeks: None household members: none housing: other current occupational exposures/hazards: No caffeine: No ROS Obtained: Yes All systems reviewed & no additional complaints except as documented Physical Exam General General appearance: alert and in no apparent distress Respiratory Respiratory exam: Present normal lung sounds bilaterally Cardiovascular Cardiovascular exam: Present regular rate and normal rhythm Neurological Exam Neurological exam: Present alert, oriented X3, CN II-XII intact and other ([id number] normal bilaterally she has difficulty with rapid alternating movements with her left upper extremity [id number] normal bilaterally ); Absent motor sensory deficit Medical Decision Making [place] Inquiry Pt receiving controlled substance: No Vital Signs: 12/17/23 08:13 12/17/23 08:30 12/17/23 09:33 Temperature 97.6 F Temperature Source Oral Pulse Rate 87 Pulse Rate [Radial] 79 Respiratory Rate 16 12 21 Blood Pressure 105/58 L 144/89 H Blood Pressure [Right Arm] 106/62 L Blood Pressure Mean [Right Arm] 76 Blood Pressure Source [Right Arm] Automatic Cuff Blood Pressure Position [Right Arm] Sitting 02 Sat by Pulse Oximetry 94 L 95 Oxygen Delivery Method Room Air 12/17/23 10:02 12/17/23 10:30 Temperature Temperature Source Pulse Rate 94 H 95 H Pulse Rate [Radial] Respiratory Rate 24 14 Blood Pressure 155/99 H 157/88 H Blood Pressure [Right Arm] Blood Pressure Mean [Right Arm] Blood Pressure Source [Right Arm] Blood Pressure Position [Right Arm] 02 Sat by Pulse Oximetry 95 94 L Oxygen Delivery Method Lab Data Lab results reviewed: Yes I reviewed the patient's lab results. Lab Results 12/17/23 08:10: WBC 9.9, RBC 3.96 L, Hgb 11.2 L, Hct 35.7 L, MCV 90.2, MCH 28.4, MCHC 31.4 L, RDW 13.8, Plt Count 297, MPV 8.3, Neut % (Auto) 86.4 H, Lymph % (Auto) 9.5 L, [place] % (Auto) 3.8, Eos % (Auto) 0.0 L, Baso % (Auto) 0.3, Neut # (Auto) 8.6 H, Lymph # (Auto) 0.9, [place] # (Auto) 0.4, Eos # (Auto) 0.0, Baso # (Auto) 0.0, Total Counted 100, Neutrophils % (Manual) 84 H, Lymphocytes % (Manual) 15, Monocytes % (Manual) 1 L, Platelet Estimate Normal, RBC Morphology Normal, PT 10.3, INR 0.95, APTT 35.6 H, Sodium 136, Potassium 3.8, Chloride 100, Carbon Dioxide 29, Anion Gap 10.8, BUN 17, Creatinine 1.30 H, Estimated Creat Clear 60, Estimated GFR 42 L, Est GFR ( Amer) 51 L, Glucose 182 H, Calcium 9.3, Total Bilirubin 0.8, AST 49 H, ALT 35, Alkaline Phosphatase 157 H, Troponin I < 0.01, Total Protein 7.5, Albumin 4.0, Globulin 3.5 H, Albumin/Globulin Ratio 1.1, TSH 0.55, Plasma/Serum Alcohol < 10 12/17/23 10:02: Urine Color Yellow, Urine Appearance Clear, Urine pH 7.5, Ur Specific Mayer 1.010, Urine Protein Negative, Urine Glucose (UA) Negative, Urine Ketones Negative, Urine Blood Trace-i, Urine Nitrate Positive, Urine Bilirubin Negative, Urine Urobilinogen 0.2, Ur Leukocyte Esterase 2+ A, Urine RBC Occasional, Urine WBC 5-10, Ur Squamous Epith Cells Occasional, Urine Bacteria 2+, Urine Opiates Screen Negative, Urine Methadone Screen Negative, Ur Barbituates Screen Negative, Ur Phencyclidine Scrn Negative, Ur Amphetamines Screen Negative, U Benzodiazepines Scrn Negative, Urine Cocaine Screen Negative, U Marijuana (THC) Screen Negative 12/17/23 08:10 12/17/23 08:10 Orders (Tests/Meds): ED MEDICATIONS Discontinued Medications Generic Name Dose Route Start Last Admin Trade Name Syed PRN Reason Stop Dose Admin Cefdinir 300 mg 12/17/23 10:21 12/17/23 10:29 Cefdinir 300mg Capsule PO 12/17/23 10:22 300 mg ONCE ONE Administration Lactated Ringer's 1,000 mls @ 999 mls/hr 12/17/23 08:45 12/17/23 08:56 Lactated Ringer's 1000 Ml Bag IV 12/17/23 09:45 999 mls/hr .Q1H1M NISHA Administration Iopamidol 100 ml 12/17/23 09:37 12/17/23 09:38 Iopamidol-370 (76%);100ml Bottle IV 12/17/23 09:38 100 ml ONCE ONE Administration Sodium Chloride 10 ml 12/17/23 09:37 12/17/23 09:38 Sodium Chloride 0.9% 10ml Syr (Rad Only) IV 12/17/23 09:38 10 ml ONCE ONE Administration Sodium Chloride 50 ml 12/17/23 09:37 12/17/23 09:37 0.9 % Sodium Chloride 50 Ml Vial IV 12/17/23 09:38 50 ml ONCE ONE Administration ORDERS Category Date Time Status CT angio head Stat Cat Scan 12/17/23 08:[address] angio neck Stat Cat Scan 12/17/23 08:[address] head/brain wo con Stat Cat Scan 12/17/23 08:39 Completed CXR --portable [XR chest portable] Stat Exams 12/17/23 08:40 Completed Ammonia Stat Lab 12/17/23 08:40 Ordered CBC w/Auto Diff [Complete Blood Count Auto Diff] Stat Lab 12/17/23 08:10 Completed CMP [Comprehensive Metabolic Panel] Stat Lab 12/17/23 08:10 Completed Ethanol [Ethyl Alcohol] Stat Lab 12/17/23 08:10 Completed PT/PTT Stat Lab 12/17/23 08:10 Completed TSH [Thyroid Stimulating Hormone] Stat Lab 12/17/23 08:10 Completed Trop I [Troponin I] Stat Lab 12/17/23 08:10 Completed Troponin I Q3H Lab 12/17/23 11:45 Ordered Troponin I Q3H Lab 12/17/23 14:45 Ordered UA [Urinalysis and Microscopic] Stat Lab 12/17/23 10:02 Completed UDS [Drug Screen,Urine] Stat Lab 12/17/23 10:02 Completed Urine Culture Stat Micro 12/17/23 10:02 Received ECG Data Tracing #1: I reviewed this ECG and interpreted as documented below: Ventricular rate of 80 normal sinus rhythm no acute ischemic changes noted there are some nonspecific ST abnormalities in the inferior and anterior precordial leads normal axis no conduction abnormalities Medical Decision Narrative: 58-year-old female with transient significant change in mental status earlier this morning. She is alert oriented answering questions appropriately she does seem to have some mild neurologic abnormalities including some difficulty with left upper extremity rapid alternating movements but otherwise her posterior circulation exam seems unremarkable. She claims to have diplopia but has a normal ocular exam on my assessment. Differential includes stroke, space- occupying lesion such as recurrence or worsening of pituitary adenoma, manifestation of hypertension, Xanax use or withdrawal, etc. Workup is broad will reassess after initial workup is complete. Reassessment 1051 patient remains very stable specifically hemodynamically stable in fact she is mildly hypertensive at this point. No evidence of shock or sepsis. CT scans of the patient's head and neck were performed which I personally interpreted which show no acute abnormality. Labs unremarkable no metabolic cause of this. Patient does have a mildly elevated creatinine. She has been advised to hold her hypertensive medications at home. She does have evidence of urinary tract infection which likely was the cause of her symptoms today. As stated above I do not believe she has sepsis or septic shock and is completely back to normal and hemodynamically stable at the moment. I entertained the thought of admitting her but do not believe that is indicated at the moment. Also she does not have any signs or symptoms of [employer] infection. There was some evidence of some sinus thickening but she has no current symptoms of acute sinusitis and will not treat that. She does have chronic sinus problems she states. I do not believe a lumbar puncture or admission or any further inpatient evaluation or management is necessary this was explained to the family they agree they are comfortable taking her home and return with any worsening of her symptoms. Critical Care Critical Care Time Critical Care Time: Yes Attestation: On 12/17/23, the high probability of a clinically significant, sudden or life threatening deterioration of the following system(s) required my full and direct attention, intervention and personal management. The time I documented below is in addition to time spent performing reported procedures but includes the following listed in this critical care notation. Total Time Total Critical Care Time: 35
[2023-12-17 08:51] LABS: Chloride 100 mmol/L (98-107); Sodium 136 mmol/L (136-145)
[2023-12-17 08:52] LABS: Potassium 3.8 mmoL/L (3.5-5.1)
[2023-12-17 08:54] LABS: Alanine Aminotransferase 35 U/L (12-78); Alkaline Phosphatase 157 U/L (38-126); Anion Gap 10.8 mEq/L (5-15); Aspartate Amino Transferase 49 U/L (14-36); Bilirubin,Total 0.8 mg/dl (0.2-1.3); Blood Urea Nitrogen 17 mg/dl (7-17); Calcium 9.3 mg/dl (8.4-10.2); Carbon Dioxide 29 mmol/L (22.0-30.0); Creatinine Clearance Estimated 60 mL/min (50-200); Estimated Glomerular Filt Rate 42 ml/min (>60); GFR (African American) 51 ML/MIN (>60); Glucose 182 mg/dl (74-100); Total Protein,Serum 7.5 g/dl (6.3-8.2)
[2023-12-17] MEDS: LACTATED RINGERS 1000ML 1,000 ML 999 ML IV (08:56)
--- NOTE | 2023-12-17 09:02 | ECG_ITS ---
APPROVED REPORT Exam: Resting ECG HR:80 bpm ECG Measurements Heart Rate 80 AXES TN 147 P 52 QRSd 86 QRS 57 QT 351 T 7 QTc 387 Conclusion SINUS RHYTHM NONSPECIFIC T-WAVE ABNORMALITY BORDERLINE ECG UNCONFIRMED REPORT Electronically signed by : Jarad Kelsey, 12/17/2023 15:12:30
[2023-12-17 09:06] LABS: Basophils % 0.3 % (0.1-2.0); Hematocrit 35.7 % (37.0-47.0); Hemoglobin 11.2 g/dL (12.2-16.2); Lymphocytes # 0.9 K/mm3 (0.7-4.5); Lymphocytes % 9.5 % (10-50); Mean Corpuscular HGB Conc 31.4 g/dL (31.8-35.4); Mean Corpuscular Hemoglobin 28.4 pg (27.0-31.2); Mean Corpuscular Volume 90.2 fl (81-99); Mean Platelet Volume 8.3 fl (7.4-10.4); Monocytes # 0.4 K/mm3 (0.1-1.0); Monocytes % 3.8 % (1.7-9.3); Neutrophils # 8.6 K/mm3 (1.8-7.8); Neutrophils % 86.4 % (37.0-80.0); Platelet Count 297 K/mm3 (142-424); Red Blood Count 3.96 M/mm3 (4.20-5.40); Red Cell Distribution Width 13.8 % (11.5-17.5); White Blood Count 9.9 K/mm3 (4.8-10.8)
[2023-12-17 09:09] LABS: Troponin I < 0.01 ng/ml (0.00-0.034)
[2023-12-17 09:12] LABS: Activated Partial Thrombo Time 35.6 seconds (22.8-30.6); INR 0.95 (0.9-1.1); Prothrombin Time 10.3 seconds (10.1-12.5)
--- NOTE | 2023-12-17 09:14 | PC.NURSE ---
PT TO CT
[2023-12-17 09:20] LABS: MANUAL DIFFERENTIAL MANUAL DIFFERENTIAL (MANUAL DIFF)
[2023-12-17 09:26] LABS: Thyroid Stimulating Hormone 0.55 uIU/mL (0.465-4.68)
[2023-12-17 09:33] VITALS: BP 144/89; PULSE 87; RESP 21; O2SAT 95
--- NOTE | 2023-12-17 09:33 | PC.NURSE ---
PT back from CT by WC
[2023-12-17] MEDS: 0.9 % SODIUM CHLORIDE 50 ML VIAL IV (09:37)
[2023-12-17] MEDS: SODIUM CHLORIDE 0.9% 10ML SYR (RAD ONLY) 10 ML IV (09:38)
[2023-12-17] MEDS: IOPAMIDOL-370 (76%);100ML BOTTLE 100 ML IV (09:38)
[2023-12-17 09:57] LABS: Ethyl Alcohol < 10 mg/dl (0-10)
[2023-12-17 10:01] LABS: Albumin/Globulin Ratio 1.1 (1.1-1.8); Globulin 3.5 g/dL (1.3-3.2)
[2023-12-17 10:02] VITALS: BP 155/99; PULSE 94; RESP 24; O2SAT 95
[2023-12-17 10:04] LABS: Lymphocytes % 15 % (10-50); Monocytes % 1 % (2-9); Neutrophils % 84 % (42-76); Total Cells Counted 100
[2023-12-17 10:05] LABS: Platelet Estimate Normal; RBC Morphology Normal
[2023-12-17 10:06] LABS: Microscopic, Urine URINE MICROSCOPIC (MICROSCOPIC)
--- NOTE | 2023-12-17 10:07 | PC.NURSE ---
Pt ambulatory to bathroom and back to bed. Urine sample collected and warm blanket provided.
[2023-12-17 10:10] LABS: Appearance,Urine CLEAR (Clear); Bilirubin,Urine Negative (Negative); Blood, Urine TRACE-I (Negative); Color,Urine YELLOW (Yellow); Glucose,Urine (UA) Negative (Negative); Ketones,Urine Negative (Negative); Leukocyte Esterase,Urine 2+ (Negative); Nitrate,Urine POSITIVE (Negative); PH,Urine 7.5 (5.0-8.5); Protein,Urine Negative (Negative); Urobilinogen,Urine 0.2 EU/dl (0.2)
[2023-12-17 10:22] LABS: Amphetamine/Metha Screen,Urine Negative ng/ml (<1000)
[2023-12-17 10:23] LABS: Barbiturates Screen,Urine Negative ng/ml (<200)
[2023-12-17 10:24] LABS: Benzodiazepines Screen,Urine Negative ng/ml (<200); Cannabinoid Screen,Urine Negative ng/ml (<50)
[2023-12-17 10:25] LABS: Cocaine Screen,Urine Negative ng/ml (<300); Methadone Screen,Urine Negative ng/ml (<300)
[2023-12-17 10:26] LABS: Opiate Screen,Urine Negative ng/ml (<300)
[2023-12-17 10:27] LABS: Phencyclidine Screen,Urine Negative ng/ml (<25)
[2023-12-17 10:29] LABS: Bacteria,Urine 2+ /lpf; RBC,Urine Occasional #/hpf (0-3); Squamous Epithelial Cell,Urine Occasional #/hpf (0-5)
[2023-12-17] MEDS: CEFDINIR 300MG CAPSULE 300 MG PO (10:29)
[2023-12-17 10:30] VITALS: BP 157/88; PULSE 95; RESP 14; O2SAT 94
[2023-12-17 11:07] VITALS: BP 168/70; PULSE 100; RESP 16; TEMP 36.7; O2SAT 94
== END 2023-12-17 11:08 | disposition home or self-care (01) ==
PROVIDERS: Emergency Provider Student in an Organized Health Care Education/Training Program; PCP Internal Medicine
DX: G93.40 Encephalopathy, unspecified (principal); N39.0 Urinary tract infection, site not specified; B96.29 Other Escherichia coli [E. coli] as the cause of diseases classified elsewhere; I10 Essential (primary) hypertension
CPT/HCPCS: 70450; 70496; 70498; 71045; 80053; 80307; 81001; 84443; 84484; 85007; 85025; 85610; 85730; 87086; 87088; 87186; 93005; 96360; 99285; Q9967

== ENCOUNTER 2024-01-01 12:05 | Outpatient (CLI) | payer MEDICARE, MEDICAID, SELFPAY ==
[2024-01-01 19:08] LABS: Basophils % 0.3 % (0.1-2.0); Eosinophils % 0.1 % (0.1-12.0); Hematocrit 37.1 % (37.0-47.0); Lymphocytes # 1.8 K/mm3 (0.7-4.5); Lymphocytes % 28.2 % (10-50); Mean Corpuscular HGB Conc 32.3 g/dL (31.8-35.4); Mean Corpuscular Hemoglobin 28.6 pg (27.0-31.2); Mean Corpuscular Volume 88.3 fl (81-99); Mean Platelet Volume 8.5 fl (7.4-10.4); Monocytes # 0.4 K/mm3 (0.1-1.0); Monocytes % 5.5 % (1.7-9.3); Neutrophils # 4.2 K/mm3 (1.8-7.8); Platelet Count 459 K/mm3 (142-424); Red Blood Count 4.21 M/mm3 (4.20-5.40); Red Cell Distribution Width 13.9 % (11.5-17.5); White Blood Count 6.4 K/mm3 (4.8-10.8)
[2024-01-01 19:21] LABS: Hemoglobin A1C 5.8 % (4.0-6.0)
[2024-01-01 19:25] LABS: Alanine Aminotransferase 18 U/L (12-78); Albumin Level 4.3 g/dl (3.5-5.0); Albumin/Globulin Ratio 1.3 (1.1-1.8); Alkaline Phosphatase 149 U/L (38-126); Anion Gap 14.4 mEq/L (5-15); Aspartate Amino Transferase 27 U/L (14-36); Bilirubin,Total 0.6 mg/dl (0.2-1.3); Blood Urea Nitrogen 26 mg/dl (7-17); Calcium 9.4 mg/dl (8.4-10.2); Carbon Dioxide 27 mmol/L (22.0-30.0); Chloride 101 mmol/L (98-107); Estimated Glomerular Filt Rate 36 ml/min (>60); GFR (African American) 43 ML/MIN (>60); Globulin 3.3 g/dL (1.3-3.2); Glucose 89 mg/dl (74-100); Potassium 5.4 mmoL/L (3.5-5.1); Sodium 137 mmol/L (136-145); Total Protein,Serum 7.6 g/dl (6.3-8.2)
[2024-01-01 19:30] LABS: C-Reactive Protein 1.9 mg/L (0-4)
[2024-01-01 19:31] LABS: Erythrocyte Sedimentation Rate 24 mm/hr (0-30)
== END 2024-01-01 23:59 | disposition home or self-care (01) ==
LOC: LAB.DROPOF 01-03 12:06
PROVIDERS: PCP Internal Medicine; Visit Provider Internal Medicine
DX: R53.83 Other fatigue (principal); R73.09 Other abnormal glucose
CPT/HCPCS: 80053; 83036; 85025; 85651; 86140

== ENCOUNTER 2024-01-10 21:28 | Observation (INO) | payer MEDICARE, MEDICAID, SELFPAY ==
--- NOTE | 2024-01-10 21:31 | HMH.EDGENADL ---
Discharge Plan Disposition Patient Disposition: Admitted Condition: Fair Clinical Impressions Clinical Impression: Acute kidney injury (nontraumatic) Hypotension Qualifiers: Hypotension type: unspecified hypotension type Qualified Code(s): I95.9 - Hypotension, unspecified Discharge ED Provider: Hector Hassan General Adult HPI <JUAN Gutierrez - Last Filed: 01/10/24 23:07> General Chief complaint: Weakness Stated complaint: low BP, weak Time Seen by Provider: 01/10/24 21:30 History of Present Illness HPI narrative: Presents for evaluation of low blood pressure. Patient states that Dr. Gonzalez made the medication changes to her blood pressure medicine and now she has had low blood pressure for the last few days. Patient states that yesterday she had chest pain but not today. Currently she denies chest pain fever chills hemoptysis hematochezia melena nausea vomit diarrhea. Patient states that her symptoms of low blood pressure of feeling pressure in her neck but no dizziness diaphoresis shortness of breath etc. Related Data Home Medications Medication Instructions Recorded Confirmed aspirin 81 mg tablet,delayed 81 mg PO DAILY 09/26/22 01/01/24 release (Adult Low Dose Aspirin) Previous Rx's Medication Instructions Recorded rizatriptan 10 mg tablet (Maxalt) See Rx Instructions PO .COMPLEX 01/04/23 #30 tabs albuterol sulfate 90 mcg/actuation 2 puff inhalation Q8H PRN 06/13/23 aerosol inhaler (Proventil HFA) shortness of breath or wheezing #8.5 grams omeprazole 40 mg capsule,delayed 40 mg PO DAILY #90 caps 07/18/23 release quetiapine 100 mg tablet 100 mg PO HS 30 days #30 tabs 09/29/23 gabapentin 800 mg tablet 800 mg PO TID 30 days #90 tabs 11/20/23 irbesartan 75 mg tablet 75 mg PO HS #30 tabs 11/20/23 metoprolol succinate 50 mg 50 mg PO BID 30 days #60 tabs 11/20/23 tablet,extended release 24 hr flecainide 50 mg tablet See Rx Instructions .Route 12/06/23 .COMPLEX #60 tabs ondansetron 8 mg disintegrating 8 mg PO Q12H PRN nausea and 12/08/23 tablet vomiting #20 tabs oxycodone-acetaminophen 10 mg-325 1 tab PO Q6H PRN pain 30 days #120 01/01/24 mg tablet tabs quetiapine 200 mg tablet 200 mg PO DAILY #30 tabs 01/01/24 tizanidine 4 mg capsule 8 mg (2 x 4 mg) PO TID PRN muscle 01/01/24 spasticity 30 days #210 caps Allergies Allergy/AdvReac Type Severity Reaction Status Date / Time naloxone Allergy Unknown Unknown Verified 01/10/24 22:03 allergy reaction codeine Allergy Unknown Verified 01/10/24 22:03 allergy reaction morphine Allergy Unknown Verified 01/10/24 22:03 allergy reaction paroxetine [From Paxil] Allergy Unknown Verified 01/10/24 22:03 allergy reaction PFSH <JUAN Gutierrez - Last Filed: 01/10/24 23:07> [facility] Disclaimer: The information contained in this section may have been updated after the patient was seen, as this information can be updated by other users. Medical History Brain tumor Brain tumor (benign) This is in the old history we will just follow for now. Abnormal renal function Bleeding from right ear Syncope Syncope ROSETTE (obstructive sleep apnea) Fracture of left patella Surgical History History of brain surgery History of hand surgery H/O: hysterectomy has ovaries History of back surgery Family History Other Anemia Asthma Cancer Coronary artery disease Heart attack Hypertension Thyroid disorder Social History Smoking Status: Never smoker second hand exposure: No alcohol intake: never substance use type: former substance user current occupational status: other Travel in the last 8 weeks: None household members: none housing: other current occupational exposures/hazards: No caffeine: No <JUAN Gutierrez - Last Filed: 01/10/24 23:07> ROS Obtained: Yes Systems reviewed as appropriate & no additional complaints except as documented Physical Exam <JUAN Gutierrez - Last Filed: 01/10/24 23:07> General General appearance: alert, in no apparent distress and appears intoxicated (Patient took all of her nighttime sedating home medications before coming to the emergency department despite her blood pressure being low all day) Head Head exam: atraumatic and normal inspection Eye Eye exam: Present normal appearance and EOMI; Absent PERRL (Patient has eyelid droop bilaterally and slightly dilated pupils) ENT ENT exam: Present normal exam, normal oropharynx, mucous membranes moist and other (Patient speech is slightly slurred but understandable and appropriate) Neck Neck exam: Present normal inspection, full ROM, trachea midline and other (No carotid bruits); Absent tenderness Chest Chest inspection: Present normal inspection and symmetric chest wall rise Respiratory Respiratory exam: Present normal lung sounds bilaterally Cardiovascular Cardiovascular exam: Present regular rate and normal rhythm Neurological Exam Neurological exam: Present oriented X3, CN II-XII intact, normal gait and reflexes normal; Absent alert (Patient appears to be intoxicated but appropriate) or motor sensory deficit Psychiatric Psychiatric exam: Present normal affect and normal mood Skin Skin exam: Present warm, dry and normal color Medical Decision Making <JUAN Gutierrez - Last Filed: 01/10/24 23:07> Medical Records Medical records reviewed: Yes I reviewed the patient's medical records. [place] Inquiry Pt receiving controlled substance: No Vital Signs: 01/10/24 21:37 01/10/24 22:00 01/10/24 22:30 Temperature 98 F Temperature Source Oral Pulse Rate 65 60 Pulse Rate [Left] 68 Respiratory Rate 12 10 L 41 H Blood Pressure 72/44 L 84/48 L Blood Pressure [Right Arm] 70/38 L Blood Pressure Mean [Right Arm] 48 Blood Pressure Source Blood Pressure Source [Right Arm] Manual Cuff/ Auscultation Blood Pressure Position Blood Pressure Position [Right Arm] Sitting 02 Sat by Pulse Oximetry 95 92 L 93 L Oxygen Delivery Method Room Air 01/10/24 23:22 Temperature 98.0 F Temperature Source Oral Pulse Rate 65 Pulse Rate [Left] Respiratory Rate 15 Blood Pressure 95/56 L Blood Pressure [Right Arm] Blood Pressure Mean [Right Arm] Blood Pressure Source Automatic Cuff Blood Pressure Source [Right Arm] Blood Pressure Position Sitting Blood Pressure Position [Right Arm] 02 Sat by Pulse Oximetry Oxygen Delivery Method Room Air Lab Data Lab results reviewed: Yes I reviewed the patient's lab results. Lab Results 01/10/24 21:52: WBC 4.6 L, RBC 3.54 L, Hgb 10.4 L, Hct 31.4 L, MCV 88.8, MCH 29.3, MCHC 33.0, RDW 13.9, Plt Count 305, MPV 8.1, Neut % (Auto) 58.8, Lymph % (Auto) 35.2, [place] % (Auto) 5.2, Eos % (Auto) 0.3, Baso % (Auto) 0.5, Neut # (Auto) 2.7, Lymph # (Auto) 1.6, [place] # (Auto) 0.2, Eos # (Auto) 0.0, Baso # (Auto) 0.0, Sodium 138, Potassium 4.2, Chloride 102, Carbon Dioxide 30, Anion Gap 10.2, BUN 21 H, Creatinine 2.00 H, Estimated Creat Clear 39, Estimated GFR 26 L, Est GFR ( Amer) 31 L, Glucose 96, Calcium 9.2, Magnesium 2.4 H, Troponin I < 0.01, Free T4 1.23 01/10/24 22:04: VBG pH 7.31, VBG pCO2 57.1 H, VBG pO2 44.0 H, VBG HCO3 27.8, VBG Total CO2 29.5 H, VBG O2 Saturation 78.4 H, VBG Base Excess 1.4, VBG Lactic Acid 2.1 H 01/10/24 21:52 01/10/24 21:52 Orders (Tests/Meds): ED MEDICATIONS Generic Name Dose Route Start Last Admin Trade Name Freq PRN Reason Stop Dose Admin Acetaminophen 650 mg 01/10/24 23:29 Acetaminophen 325mg Tab PO 02/09/24 23:28 Q4HP PRN Fever or Mild Pain (1-3) Hydrocortisone Sodium Succinate 100 mg 01/10/24 23:13 Hydrocortisone Sod Succinate 100mg Vial IV 01/10/24 23:14 ONCE ONE Sodium Chloride 1,000 mls @ 100 mls/hr 01/10/24 23:30 Sod Chlor 0.9% 1000ml Bag IV 02/09/24 23:29 .Q10H NISHA Sodium Chloride 10 ml 01/10/24 23:29 Sodium Chloride 0.9% 10ml Flush Syringe IV 02/09/24 23:28 NEEDED PRN Maintain IV Site Discontinued Medications Generic Name Dose Route Start Last Admin Trade Name Freq PRN Reason Stop Dose Admin Lactated Ringer's 1,000 mls @ 999 mls/hr 01/10/24 21:54 01/10/24 22:06 Lactated Ringer's 1000 Ml Bag IV 01/10/24 22:54 999 mls/hr .Q1H1M ONE Administration ORDERS Category Date Time Status BMP [Basic Metabolic Panel] Stat Lab 01/10/24 21:52 Completed CBC w/Auto Diff [Complete Blood Count Auto Diff] Stat Lab 01/10/24 21:52 Completed Magnesium Stat Lab 01/10/24 21:52 Completed Trop I [Troponin I] Stat Lab 01/10/24 21:52 Completed Troponin I Q3H Lab 01/11/24 01:00 Ordered Troponin I Q3H Lab 01/11/24 04:00 Ordered VBG [Venous Blood Gas] Stat RT 01/10/24 22:03 Ordered VBG [Venous Blood Gas] Stat RT 01/10/24 22:04 Completed Medical Decision Narrative: In summary patient is a 59-year-old female who presents to the emergency department for evaluation of low blood pressure. Patient is patient has a systolic blood pressure of 70 diastolic of 38 on arrival with a respiratory rate of 12 heart rate of 68 satting at 95% on room air upon arrival, and afebrile. Physical exam is remarkable for slight somnolent/intoxication appearing however patient informs us that she took all of her nighttime home sedating medications prior to arrival. The remainder physical exam is nonfocal and unremarkable. Differential diagnosis includes polypharmacy, beta-blockade, etc. Initial workup will be conducted with hematologic labs.. Initial interventions include crystalloid bolus. Initial workup reviewed by me and her hematologic labs show normal white count with no shift venous blood gas shows a preserved pH with hypercarbia and lactic acid of 2.1, chemistry significant for BUN of 21 creatinine of 2.0 with a GFR of 26 magnesium of 2.4 troponin less than 0.01. Upon repeat evaluation patient still has a systolic blood pressure 84/48 however patient has not received a full liter bolus yet. 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 I do not believe that she is receiving any type of treatment for that and I do not believe that she is had any follow-up for that as yet. Given that I had an interactive discussion with hospital medicine who is agreed for admission for further evaluation and care <Hector Hassan MD - Last Filed: 01/10/24 23:45> Vital Signs: 01/10/24 21:37 01/10/24 22:00 01/10/24 22:30 Temperature 98 F Temperature Source Oral Pulse Rate 65 60 Pulse Rate [Left] 68 Respiratory Rate 12 10 L 41 H Blood Pressure 72/44 L 84/48 L Blood Pressure [Right Arm] 70/38 L Blood Pressure Mean [Right Arm] 48 Blood Pressure Source Blood Pressure Source [Right Arm] Manual Cuff/ Auscultation Blood Pressure Position Blood Pressure Position [Right Arm] Sitting 02 Sat by Pulse Oximetry 95 92 L 93 L Oxygen Delivery Method Room Air 01/10/24 23:22 Temperature 98.0 F Temperature Source Oral Pulse Rate 65 Pulse Rate [Left] Respiratory Rate 15 Blood Pressure 95/56 L Blood Pressure [Right Arm] Blood Pressure Mean [Right Arm] Blood Pressure Source Automatic Cuff Blood Pressure Source [Right Arm] Blood Pressure Position Sitting Blood Pressure Position [Right Arm] 02 Sat by Pulse Oximetry Oxygen Delivery Method Room Air Lab Data Lab Results 01/10/24 21:52: WBC 4.6 L, RBC 3.54 L, Hgb 10.4 L, Hct 31.4 L, MCV 88.8, MCH 29.3, MCHC 33.0, RDW 13.9, Plt Count 305, MPV 8.1, Neut % (Auto) 58.8, Lymph % (Auto) 35.2, [place] % (Auto) 5.2, Eos % (Auto) 0.3, Baso % (Auto) 0.5, Neut # (Auto) 2.7, Lymph # (Auto) 1.6, [place] # (Auto) 0.2, Eos # (Auto) 0.0, Baso # (Auto) 0.0, Sodium 138, Potassium 4.2, Chloride 102, Carbon Dioxide 30, Anion Gap 10.2, BUN 21 H, Creatinine 2.00 H, Estimated Creat Clear 39, Estimated GFR 26 L, Est GFR ( Amer) 31 L, Glucose 96, Calcium 9.2, Magnesium 2.4 H, Troponin I < 0.01, Free T4 1.23 01/10/24 22:04: VBG pH 7.31, VBG pCO2 57.1 H, VBG pO2 44.0 H, VBG HCO3 27.8, VBG Total CO2 29.5 H, VBG O2 Saturation 78.4 H, VBG Base Excess 1.4, VBG Lactic Acid 2.1 H Orders (Tests/Meds): ED MEDICATIONS Generic Name Dose Route Start Last Admin Trade Name Freq PRN Reason Stop Dose Admin Acetaminophen 650 mg 01/10/24 23:29 Acetaminophen 325mg Tab PO 02/09/24 23:28 Q4HP PRN Fever or Mild Pain (1-3) Hydrocortisone Sodium Succinate 100 mg 01/10/24 23:13 Hydrocortisone Sod Succinate 100mg Vial IV 01/10/24 23:14 ONCE ONE Sodium Chloride 1,000 mls @ 100 mls/hr 01/10/24 23:30 Sod Chlor 0.9% 1000ml Bag IV 02/09/24 23:29 .Q10H NISHA Sodium Chloride 10 ml 01/10/24 23:29 Sodium Chloride 0.9% 10ml Flush Syringe IV 02/09/24 23:28 NEEDED PRN Maintain IV Site Discontinued Medications Generic Name Dose Route Start Last Admin Trade Name Freq PRN Reason Stop Dose Admin Lactated Ringer's 1,000 mls @ 999 mls/hr 01/10/24 21:54 01/10/24 22:06 Lactated Ringer's 1000 Ml Bag IV 01/10/24 22:54 999 mls/hr .Q1H1M ONE Administration ORDERS Category Date Time Status BMP [Basic Metabolic Panel] Stat Lab 01/10/24 21:52 Completed CBC w/Auto Diff [Complete Blood Count Auto Diff] Stat Lab 01/10/24 21:52 Completed Magnesium Stat Lab 01/10/24 21:52 Completed Trop I [Troponin I] Stat Lab 01/10/24 21:52 Completed Troponin I Q3H Lab 01/11/24 01:00 Ordered Troponin I Q3H Lab 01/11/24 04:00 Ordered VBG [Venous Blood Gas] Stat RT 01/10/24 22:03 Ordered VBG [Venous Blood Gas] Stat RT 01/10/24 22:04 Completed Medical Decision Narrative: In summary patient is a 59-year-old female who presents to the emergency department for evaluation of low blood pressure. Patient is patient has a systolic blood pressure of 70 diastolic of 38 on arrival with a respiratory rate of 12 heart rate of 68 satting at 95% on room air upon arrival, and afebrile. Physical exam is remarkable for slight somnolent/intoxication appearing however patient informs us that she took all of her nighttime home sedating medications prior to arrival. The remainder physical exam is nonfocal and unremarkable. Differential diagnosis includes polypharmacy, beta-blockade, etc. Initial workup will be conducted with hematologic labs.. Initial interventions include crystalloid bolus. Initial workup reviewed by me and her hematologic labs show normal white count with no shift venous blood gas shows a preserved pH with hypercarbia and lactic acid of 2.1, chemistry significant for BUN of 21 creatinine of 2.0 with a GFR of 26 magnesium of 2.4 troponin less than 0.01. Upon repeat evaluation patient still has a systolic blood pressure 84/48 however patient has not received a full liter bolus yet. 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 I do not believe that she is receiving any type of treatment for that and I do not believe that she is had any follow-up for that as yet. Given that I had an interactive discussion with hospital medicine who is agreed for admission for further evaluation and care I was consulted by the DIAMANTE, and we discussed the complexity of the problems being addressed. I approved the treatment and management plan for this patient?s care in the Emergency Department, thus performing a substantive portion of the medical decision making. Hector Hassan MD Critical Care <JUAN Gutierrez - Last Filed: 01/10/24 23:07> Critical Care Time Critical Care Time: No <Hector Hassan MD - Last Filed: 01/10/24 23:45> Critical Care Time Critical Care Time: Yes (Cardiovascular, endocrine) Attestation: On 01/10/24, the high probability of a clinically significant, sudden or life threatening deterioration of the following system(s) required my full and direct attention, intervention and personal management. The time I documented below is in addition to time spent performing reported procedures but includes the following listed in this critical care notation. Total Time Total Critical Care Time: 40
[2024-01-10 21:37] VITALS: BP 70/38; PULSE 68; RESP 12; TEMP 36.6; O2SAT 95; BMI 27.2
--- NOTE | 2024-01-10 21:46 | ECG_ITS ---
APPROVED REPORT Exam: Resting ECG HR:61 bpm ECG Measurements Heart Rate 61 AXES NC 151 P 45 QRSd 92 QRS 95 QT 406 T 53 QTc 408 Conclusion SINUS RHYTHM BORDERLINE RIGHT AXIS DEVIATION [QRS AXIS > 90] LOW QRS VOLTAGE IN PRECORDIAL LEADS [QRS DEFLECTION < 1.0 mV IN CHEST LEADS] BORDERLINE ECG Electronically signed by : OG MYERS, 01/11/2024 19:08:54
[2024-01-10 22:00] VITALS: BP 72/44; PULSE 65; RESP 10; O2SAT 92
[2024-01-10] MEDS: LACTATED RINGERS 1000ML 1,000 ML 999 ML IV (22:06)
[2024-01-10 22:09] LABS: Basophils % 0.5 % (0.1-2.0); Eosinophils % 0.3 % (0.1-12.0); Hematocrit 31.4 % (37.0-47.0); Hemoglobin 10.4 g/dL (12.2-16.2); Lymphocytes # 1.6 K/mm3 (0.7-4.5); Lymphocytes % 35.2 % (10-50); Mean Corpuscular Hemoglobin 29.3 pg (27.0-31.2); Mean Corpuscular Volume 88.8 fl (81-99); Mean Platelet Volume 8.1 fl (7.4-10.4); Monocytes # 0.2 K/mm3 (0.1-1.0); Monocytes % 5.2 % (1.7-9.3); Neutrophils # 2.7 K/mm3 (1.8-7.8); Neutrophils % 58.8 % (37.0-80.0); Platelet Count 305 K/mm3 (142-424); Red Blood Count 3.54 M/mm3 (4.20-5.40); Red Cell Distribution Width 13.9 % (11.5-17.5); White Blood Count 4.6 K/mm3 (4.8-10.8)
[2024-01-10 22:10] LABS: Chloride 102 mmol/L (98-107); Sodium 138 mmol/L (136-145)
[2024-01-10 22:11] LABS: Potassium 4.2 mmoL/L (3.5-5.1)
[2024-01-10 22:13] LABS: Anion Gap 10.2 mEq/L (5-15); Blood Urea Nitrogen 21 mg/dl (7-17); Carbon Dioxide 30 mmol/L (22.0-30.0); Creatinine Clearance Estimated 39 mL/min (50-200); Estimated Glomerular Filt Rate 26 ml/min (>60); GFR (African American) 31 ML/MIN (>60)
[2024-01-10 22:14] LABS: Calcium 9.2 mg/dl (8.4-10.2); Glucose 96 mg/dl (74-100); Magnesium 2.4 mg/dl (1.6-2.3)
[2024-01-10 22:21] LABS: VBG Base Excess 1.4 mmol/L (-2.4-2.3); VBG HCO3 27.8 mmol/L (23-30); VBG Oxygen Saturation 78.4 % (50-70); VBG PH 7.31 mmol/L (7.31-7.41); VBG Total CO2 29.5 mmol/L (23-27)
[2024-01-10 22:24] LABS: Lactate Venous 2.1 mmol/L (0.4-2.0); VBG PCO2 57.1 mmol/L (35-51)
[2024-01-10 22:26] LABS: Troponin I < 0.01 ng/ml (0.00-0.034)
[2024-01-10 22:30] VITALS: BP 84/48; PULSE 60; RESP 41; O2SAT 93
--- NOTE | 2024-01-10 23:06 | PC.NURSE ---
per sydney iqbal: patient to be admitted, diagnosis 1 persistent hypotension, diagnosis 2. JOSE ENRIQUE; hospitalist admission. Notified house of need for bed assignment
--- NOTE | 2024-01-10 23:10 | XR_ITS ---
PROCEDURE INFORMATION: Exam: XR Chest Exam date and time: 01/10/2024 11:13 PM Age: 59 years old Clinical indication: Shortness of breath TECHNIQUE: Imaging protocol: Radiologic exam of the chest. Views: 1 view. COMPARISON: CR XR CHEST PORTABLE 17/12/2023 09:05 FINDINGS: Lungs: Unremarkable. No consolidation. Pleural spaces: Unremarkable. No pleural effusion. No pneumothorax. Heart/Mediastinum: Unremarkable. No cardiomegaly. Vasculature: Vascular calcifications. Bones/joints: Postsurgical changes of cervical spine. IMPRESSION: No acute findings.
[2024-01-10 23:22] VITALS: BP 95/56; PULSE 65; RESP 15; TEMP 36.7; O2SAT 96
--- NOTE | 2024-01-10 23:38 | PC.NURSE ---
Patient arrived to floor via stretcher from ED at 23:37.
[2024-01-10 23:39] LABS: Free T4 (Free Thyroxine) 1.23 ng/dl (0.78-2.19)
[2024-01-10 23:48] VITALS: BP 125/83; PULSE 72; RESP 15; O2SAT 97
[2024-01-10 23:49] VITALS: BP 107/67; PULSE 70; PULSE 71; RESP 13; TEMP 36.6; O2SAT 93; BMI 29.0
[2024-01-10 23:53] LABS: Thyroid Stimulating Hormone 4.96 uIU/mL (0.465-4.68)
[2024-01-10] MEDS: 0.9 % SODIUM CHLORIDE 1000ML 1,000 ML 100 ML IV (23:53)
[2024-01-11] VITALS (23 sets, daily range): BP systolic 107–196; BP diastolic 71–126; PULSE 70–98; RESP 10–24; TEMP 36.5–36.7; O2SAT 91–100; BMI 29.0
--- NOTE | 2024-01-11 00:04 | P.HP_ITS ---
History of Present Illness *Admission Date: 01/11/24 *Reason for visit:: Hypotension *History of present illness: This is a 59-year-old female with a past medical history of lumbar radiculopathy, degenerative disc, prior incomplete resected pituitary adenoma, HTN, HLD who presents emergency department today with complaints of low blood pressure. Patient states that she has had waxing and waning blood pressures over the last several years. She does have a history of hypertension for which she takes blood pressure medicine. States that she felt dizzy and lightheaded and checked her blood pressure at home and it was 50/30. She then called her PCP who instructed her to seek treatment in the emergency department. On arrival to the emergency department she was noted to have systolic blood pressure in the 70s with some mild dizziness. She denies any fever, cough, congestion but does state that she has had a 40 pound weight gain in the last 4 months, dizziness, diplopia and labile blood pressures. She was seen in the emergency department in November for similar complaint. She also states that she has seen an chemical production technician but her diplopia is getting worse, states it is worse out of her right eye. She also endorses depression, fatigue. In November she was seen for hypotension in the emergency department but had rebound blood pressures into the 180s and was discharged home. At that time, she was also prescribed cefdinir for urinary tract infection. Laboratory evaluation in the emergency department notable for increasing creatinine today of 2 with the last 2 creatinines in the 1 range. She was medicated with 1 L of IV fluids without significant improvement in blood pres sures, thus she was admitted to the hospitalist service [facility] Disclaimer: The information contained in this section may have been updated after the patient was seen, as this information can be updated by other users. Medical History Brain tumor Brain tumor (benign) This is in the old history we will just follow for now. Abnormal renal function Bleeding from right ear Syncope Syncope ROSETTE (obstructive sleep apnea) Fracture of left patella Surgical History History of brain surgery History of hand surgery H/O: hysterectomy has ovaries History of back surgery Family History Other Anemia Asthma Cancer Coronary artery disease Heart attack Hypertension Thyroid disorder Social History Smoking Status: Never smoker second hand exposure: No alcohol intake: never substance use type: former substance user current occupational status: other Travel in the last 8 weeks: None household members: none housing: other current occupational exposures/hazards: No caffeine: No Review of Systems Review of Systems Review of systems (narrative): Negative except for HPI Meds Home Medications and Allergies Home Medications Medication Instructions Recorded Confirmed Type aspirin 81 mg tablet,delayed 81 mg PO DAILY 09/26/22 01/01/24 History release (Adult Low Dose Aspirin) rizatriptan 10 mg tablet (Maxalt) See Rx Instructions PO .COMPLEX 01/04/23 01/01/24 Rx #30 tabs albuterol sulfate 90 mcg/actuation 2 puff inhalation Q8H PRN 06/13/23 01/01/24 Rx aerosol inhaler (Proventil HFA) shortness of breath or wheezing #8.5 grams omeprazole 40 mg capsule,delayed 40 mg PO DAILY #90 caps 07/18/23 01/01/24 Rx release quetiapine 100 mg tablet 100 mg PO HS 30 days #30 tabs 09/29/23 01/01/24 Rx gabapentin 800 mg tablet 800 mg PO TID 30 days #90 tabs 11/20/23 01/01/24 Rx irbesartan 75 mg tablet 75 mg PO HS #30 tabs 11/20/23 01/01/24 Rx metoprolol succinate 50 mg 50 mg PO BID 30 days #60 tabs 11/20/23 01/01/24 Rx tablet,extended release 24 hr flecainide 50 mg tablet See Rx Instructions .Route 12/06/23 01/01/24 Rx .COMPLEX #60 tabs ondansetron 8 mg disintegrating 8 mg PO Q12H PRN nausea and 12/08/23 01/01/24 Rx tablet vomiting #20 tabs oxycodone-acetaminophen 10 mg-325 1 tab PO Q6H PRN pain 30 days #120 01/01/24 01/01/24 Rx mg tablet tabs quetiapine 200 mg tablet 200 mg PO DAILY #30 tabs 01/01/24 01/01/24 Rx tizanidine 4 mg capsule 8 mg (2 x 4 mg) PO TID PRN muscle 01/01/24 01/01/24 Rx spasticity 30 days #210 caps New Prescriptions to Start Prescriptions: Allergies Allergy/AdvReac Type Severity Reaction Status Date / Time naloxone Allergy Unknown Unknown Verified 01/10/24 22:03 allergy reaction codeine Allergy Unknown Verified 01/10/24 22:03 allergy reaction morphine Allergy Unknown Verified 01/10/24 22:03 allergy reaction paroxetine [From Paxil] Allergy Unknown Verified 01/10/24 22:03 allergy reaction Exam Data for Last 24 hours Vital signs and Labs for Last 24 Hours: Temp Pulse Resp BP Pulse Ox O2 Del Method 97.9 F 71 13 107/67 L 93 L Room Air 01/10/24 23:49 01/10/24 23:49 01/10/24 23:49 01/10/24 23:49 01/10/24 23:49 01/10/24 23:49 Laboratory Results - last 24 hr 01/10/24 21:52: WBC 4.6 L, RBC 3.54 L, Hgb 10.4 L, Hct 31.4 L, MCV 88.8, MCH 29.3, MCHC 33.0, RDW 13.9, Plt Count 305, MPV 8.1, Neut % (Auto) 58.8, Lymph % (Auto) 35.2, Bryan % (Auto) 5.2, Eos % (Auto) 0.3, Baso % (Auto) 0.5, Neut # (Auto) 2.7, Lymph # (Auto) 1.6, Bryan # (Auto) 0.2, Eos # (Auto) 0.0, Baso # (Auto) 0.0, Sodium 138, Potassium 4.2, Chloride 102, Carbon Dioxide 30, Anion Gap 10.2, BUN 21 H, Creatinine 2.00 H, Estimated Creat Clear 39, Estimated GFR 26 L, Est GFR ( Amer) 31 L, Glucose 96, Calcium 9.2, Magnesium 2.4 H, Troponin I < 0.01, TSH 4.96 H, Free T4 1.23 01/10/24 22:04: VBG pH 7.31, VBG pCO2 57.1 H, VBG pO2 44.0 H, VBG HCO3 27.8, VBG Total CO2 29.5 H, VBG O2 Saturation 78.4 H, VBG Base Excess 1.4, VBG Lactic Acid 2.1 H I & O for Last 24 hours: Intake & Output 01/08/24 01/09/24 01/10/24 01/11/24 23:59 23:59 23:59 23:59 Intake Total 1000 / 1000 Balance 1000 / 1000 Weight 84.096 kg Constitutional Constitutional: no acute distress *Routine HEENT Exam Head: Present normocephalic Eye: Present EOMI and PERRL ENT: Present mucous membranes moist *Routine Neck Exam Neck: Present supple; Absent lymphadenopathy *Routine Respiratory Exam Respiratory: Present CTA bilaterally *Routine Cardiovascular Exam Cardiovascular: Present RRR *Routine Abdominal Exam Abdominal: Present soft and normoactive bowel sounds; Absent tenderness *Routine Rectal Exam Rectal:: deferred *Routine Genitalia Exam Genitalia:: deferred *Routine Extremities Exam Extremities: Absent cyanosis, clubbing or edema *Routine Skin Exam Skin: Present warm; Absent rash *Routine Neurological Exam Neurological: Present alert and oriented X3 Assessment and Plan *Assessment and plan (1) Hypotension: Status: Acute Qualifiers: Hypotension type: unspecified hypotension type Qualified Code(s): I95.9 - Hypotension, unspecified Category: Medical Code(s): I95.9 - Hypotension, unspecified (2) Acute kidney injury (nontraumatic): Status: Acute Category: Medical Code(s): N17.9 - Acute kidney failure, unspecified (3) Hypertension: Status: Acute Qualifiers: Hypertension type: unspecified Qualified Code(s): I10 - Essential (primary) hypertension Category: Medical Code(s): I10 - Essential (primary) hypertension (4) History of pituitary tumor: Status: Chronic Category: Medical Code(s): Z87.898 - Personal history of other specified conditions (5) HLD (hyperlipidemia): Status: Chronic Qualifiers: Hyperlipidemia type: unspecified Qualified Code(s): E78.5 - Hyperlipidemia, unspecified Category: Medical Code(s): E78.5 - Hyperlipidemia, unspecified Plan Admit to stepdown #Hypotension #History of pituitary tumor Does not meet for SIRS criteria at this time except for a lactic acid of 2.1. No infection source identified at this time urinalysis still pending. Does have history of resected pituitary tumor in the 90s but they were unable to get all of the tumor secondary to how large it was. States that she has not been told at any point in her life that she needed to be on replacement steroids for this. Has been complaining of diplopia, general malaise and fatigue, weight gain, confusion for some time. At the time of admission, blood pressure has improved into the 120s. Will hold off on Solu-Cortef at this time and obtain TSH, free T4 and random cortisol level. I think it is prudent at this point given patient's myriad of complaints over the last several months to repeat MRI imaging of her brain to rule out pituitary involvement for cause of hypotension Continue infectious workup although patient does not appear infected at this time UA #JOSE ENRIQUE Likely prerenal in nature but also could be sequela of pituitary disease Continue maintenance IV fluids Avoid nephrotoxic medications #Hypertension Hold all antihypertensive agents at this time #Anxiety Patient reports taking her home sedating medications prior to arrival here Hold for now DVT PPx subcu heparin Full code
[2024-01-11 01:25] LABS: Reflex Lactic Add Lactic Reflex
[2024-01-11 01:38] LABS: Lactic Acid Follow Up (RFLX 1) 0.8 mmol/L (0.7-2.1)
[2024-01-11 01:52] LABS: Troponin I < 0.01 ng/ml (0.00-0.034)
[2024-01-11 02:17] LABS: Microscopic, Urine URINE MICROSCOPIC (MICROSCOPIC)
[2024-01-11 02:22] LABS: Appearance,Urine CLEAR (Clear); Bilirubin,Urine Negative (Negative); Blood, Urine Negative (Negative); Color,Urine YELLOW (Yellow); Glucose,Urine (UA) Negative (Negative); Ketones,Urine Negative (Negative); Leukocyte Esterase,Urine 1+ (Negative); Nitrate,Urine Negative (Negative); PH,Urine 6.5 (5.0-8.5); Protein,Urine Negative (Negative); Urobilinogen,Urine 0.2 EU/dl (0.2)
--- NOTE | 2024-01-11 02:28 | PC.NURSE ---
UNABLE TO COMPLETE PT'S MED REC AT THIS TIME D/T PT UNABLE TO RECALL ALL MEDS, DOSES, AND FREQUENCY. PT STATED THAT SHE WOULD CALL PHARMACY IN AM TO GET ORDERS FAXED TO HOSPITAL TO COMPLETE MED REC.
[2024-01-11 02:33] LABS: Bacteria,Urine Trace /lpf; Hyaline Casts,Urine Occasional #/lpf (0); Squamous Epithelial Cell,Urine Occasional #/hpf (0-5)
[2024-01-11 04:53] LABS: Basophils % 0.4 % (0.1-2.0); Eosinophils % 0.2 % (0.1-12.0); Hematocrit 35.2 % (37.0-47.0); Hemoglobin 11.2 g/dL (12.2-16.2); Lymphocytes % 44.6 % (10-50); Mean Corpuscular HGB Conc 31.8 g/dL (31.8-35.4); Mean Corpuscular Hemoglobin 28.4 pg (27.0-31.2); Mean Corpuscular Volume 89.2 fl (81-99); Monocytes # 0.3 K/mm3 (0.1-1.0); Monocytes % 6.2 % (1.7-9.3); Neutrophils # 2.2 K/mm3 (1.8-7.8); Neutrophils % 48.6 % (37.0-80.0); Platelet Count 273 K/mm3 (142-424); Red Blood Count 3.95 M/mm3 (4.20-5.40); Red Cell Distribution Width 13.9 % (11.5-17.5); White Blood Count 4.5 K/mm3 (4.8-10.8)
[2024-01-11 04:58] LABS: Chloride 106 mmol/L (98-107); Potassium 4.4 mmoL/L (3.5-5.1); Sodium 140 mmol/L (136-145)
[2024-01-11 05:01] LABS: Anion Gap 10.4 mEq/L (5-15); Blood Urea Nitrogen 19 mg/dl (7-17); Calcium 9.2 mg/dl (8.4-10.2); Carbon Dioxide 28 mmol/L (22.0-30.0); Creatinine Clearance Estimated 59 mL/min (50-200); Estimated Glomerular Filt Rate 39 ml/min (>60); GFR (African American) 47 ML/MIN (>60); Glucose 90 mg/dl (74-100)
[2024-01-11 05:14] LABS: Troponin I < 0.01 ng/ml (0.00-0.034)
[2024-01-11] MEDS: OXYCODONE 10MG W/APAP 325MG TABLET 1 EACH PO (05:55)
--- NOTE | 2024-01-11 06:03 | PC.NURSE ---
ERP MANAGER NOTIFIED OF PT BEING HYPERTENSIVE, NO CP NOTED; AWAITING NEW ORDERS
--- NOTE | 2024-01-11 06:15 | PC.NURSE ---
HOUSE SUP GOING TO ED TO GET MED FOR NEW ORDER; WILL ADMIN ONCE RECEIVED
[2024-01-11] MEDS: HYDRALAZINE 10MG TABLET 10 MG PO (06:22)
--- NOTE | 2024-01-11 08:04 | HMH.PHAINT1 ---
Pharmacy Intervention Comments: HOME MEDICATION LIST VERIFIED USING LIST FROM OUTPATIENT PHARMACY
[2024-01-11] MEDS: AMLODIPINE 5MG TABLET 5 MG PO (08:23)
--- NOTE | 2024-01-11 09:33 | PC.NURSE ---
spoke with JORI Parisi, pt is hypertensive. waiting for clearance to be transported to MRI
[2024-01-11] MEDS: LABETALOL 20MG/4ML SYRINGE 10 MG IV (09:58)
[2024-01-11] MEDS: NIFEdipine XL 30MG TABLET 30 MG PO (11:48)
[2024-01-11] MEDS: METOPROLOL SUCCINATE XL 25MG TABLET 25 MG PO (11:48)
[2024-01-11] MEDS: ASPIRIN EC 81MG TABLET 81 MG PO (11:48)
[2024-01-11] MEDS: FLECAINIDE 50MG TABLET 50 MG PO (11:48)
[2024-01-11] MEDS: ACETAMINOPHEN 325MG TAB 650 MG PO (12:21)
[2024-01-11] MEDS: GABAPENTIN 800MG TABLET 800 MG PO (14:25)
--- NOTE | 2024-01-15 17:13 | CARE MANAGER ---
Contacted patient related to hospital discharge. Patient states she is doing well. She went to a follow up appointment with Dr. Lora today. She is aware of medication changes and denies any questions or concerns. JORI Nunez
--- NOTE | 2024-01-26 09:00 | P.DS_ITS ---
General Admission date:: 01/10/24 Discharge date: 01/11/24 HPI HPI HPI: This is a 59-year-old female with a past medical history of lumbar radiculopathy, degenerative disc, prior incomplete resected pituitary adenoma, HTN, HLD who presents emergency department today with complaints of low blood pressure. Patient states that she has had waxing and waning blood pressures over the last several years. She does have a history of hypertension for which she takes blood pressure medicine. States that she felt dizzy and lightheaded and checked her blood pressure at home and it was 50/30. She then called her PCP who instructed her to seek treatment in the emergency department. On arrival to the emergency department she was noted to have systolic blood pressure in the 70s with some mild dizziness. She denies any fever, cough, congestion but does state that she has had a 40 pound weight gain in the last 4 months, dizziness, diplopia and labile blood pressures. She was seen in the emergency department in November for similar complaint. 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 She also endorses depression, fatigue. In November she was seen for hypotension in the emergency department but had rebound blood pressures into the 180s and was discharged home. At that time, she was also prescribed cefdinir for urinary tract in fection. Laboratory evaluation in the emergency department notable for increasing creatinine today of 2 with the last 2 creatinines in the 1 range. She was medicated with 1 L of IV fluids without significant improvement in blood pressures, thus she was admitted to the [facility] service Hospital Course Hospital Course Hospital Course: #Hypotension - improved #History of pituitary tumor improved, patient was counseled to follow up with PCP for BP management #JOSE ENRIQUE - stable and improved, patient given f/u with nephrology On the date of discharge, the patient reported feeling stable. The patient was found not to be in any acute distress, and no new abnormalities on physical examination. Further, the patient expressed appropriate understanding of, and agreement with, the discharge recommendations, medications, and plan. Time spent 37 mins Exam Data for Last 24 hours Vital signs and Labs for Last 24 Hours: Temp Pulse Resp BP Pulse Ox O2 Del Method O2 Flow Rate 98.0 F 81 20 157/97 H 91 L Room Air 2 01/11/24 12:00 01/11/24 14:15 01/11/24 14:15 01/11/24 14:15 01/11/24 13:00 01/11/24 13:00 01/11/24 06:59 Constitutional Constitutional: no acute distress *Routine HEENT Exam Head: Present normocephalic Eye: Present EOMI and PERRL ENT: Present mucous membranes moist *Routine Neck Exam Neck: Present supple; Absent lymphadenopathy *Routine Respiratory Exam Respiratory: Present CTA bilaterally *Routine Cardiovascular Exam Cardiovascular: Present RRR *Routine Abdominal Exam Abdominal: Present soft and normoactive bowel sounds; Absent tenderness *Routine Extremities Exam Extremities: Absent cyanosis, clubbing or edema *Routine Skin Exam Skin: Present warm; Absent rash *Routine Neurological Exam Neurological: Present alert and oriented X3 DS: Diagnosis Discharge Diagnosis (1) Hypotension: Status: Resolved Code(s): I95.9 - Hypotension, unspecified Qualifiers: Hypotension type: unspecified hypotension type Qualified Code(s): I95.9 - Hypotension, unspecified (2) Acute kidney injury (nontraumatic): Status: Resolved Code(s): N17.9 - Acute kidney failure, unspecified (3) Hypertension: Status: Acute Code(s): I10 - Essential (primary) hypertension Qualifiers: Hypertension type: unspecified Qualified Code(s): I10 - Essential (primary) hypertension (4) History of pituitary tumor: Status: Chronic Code(s): Z87.898 - Personal history of other specified conditions (5) HLD (hyperlipidemia): Status: Chronic Code(s): E78.5 - Hyperlipidemia, unspecified Qualifiers: Hyperlipidemia type: unspecified Qualified Code(s): E78.5 - Hyperlipidemia, unspecified Meds Home Medications and Allergies Home Medications Medication Instructions Recorded Confirmed Type aspirin 81 mg tablet,delayed 81 mg PO DAILY 09/26/22 01/16/24 History release (Adult Low Dose Aspirin) omeprazole 40 mg capsule,delayed 40 mg PO DAILY #90 caps 07/18/23 01/16/24 Rx release flecainide 50 mg tablet 50 mg PO BID 01/11/24 01/16/24 History gabapentin 800 mg tablet 800 mg PO TID 30 days #90 tabs 01/15/24 01/16/24 Rx oxycodone-acetaminophen 10 mg-325 1 tab PO Q6HP PRN pain #120 tabs 01/15/24 01/16/24 Rx mg tablet tizanidine 4 mg capsule 8 mg PO TIDP PRN muscle spasticity 01/16/24 01/16/24 History carvedilol 6.25 mg tablet 6.25 mg PO BID 30 days #60 tabs 01/17/24 Rx ciprofloxacin HCl 250 mg tablet 250 mg PO BID 3 days #6 tabs 01/17/24 01/16/24 Rx levofloxacin 750 mg tablet 750 mg PO DAILY 5 days #5 tabs 01/18/24 Rx quetiapine 100 mg tablet 100 mg PO HS 30 days #30 tabs 01/25/24 Rx New Prescriptions to Start Prescriptions: Allergies Allergy/AdvReac Type Severity Reaction Status Date / Time codeine Allergy Unknown Unknown Verified 01/16/24 00:52 allergy reaction morphine Allergy Unknown Unknown Verified 01/16/24 00:52 allergy reaction naloxone Allergy Unknown Unknown Verified 01/15/24 13:07 allergy reaction paroxetine [From Paxil] Allergy Unknown Unknown Verified 01/16/24 00:52 allergy reaction Discharge Plan Disposition Patient Disposition: Home, Self-Care Condition: Fair Follow up Plan Follow up with: Carlos Eduardo Waters MD [Referring] - 1 week (The office will call you with a follow up appt. ) Harjinder Lora DO [Primary Care Provider] - 01/18/24 10:15 am (Hospitalist [facility] outpt MRI of head to be ordered by PCP) Prescriptions/Medication Reconciliation: Continued aspirin [Adult Low Dose Aspirin] 81 mg tablet,delayed release (DR/EC) 81 mg PO DAILY omeprazole 40 mg capsule,delayed release(DR/EC) 40 mg PO DAILY Qty: 90 3RF flecainide 50 mg tablet 50 mg PO BID Rx Instructions: TAKE ONE TABLET BY MOUTH TWICE DAILY No Action gabapentin 800 mg tablet 800 mg PO TID 30 Days Qty: 90 1RF oxycodone-acetaminophen 10-325 mg tablet 1 tab PO Q6HP PRN (Reason: pain) Qty: 120 0RF quetiapine 100 mg tablet 100 mg PO HS 30 Days Qty: 30 2RF tizanidine 4 mg capsule 8 mg PO TIDP PRN (Reason: muscle spasticity) Rx Instructions: TID dosing take 8mg - 8mg - 12mg PO carvedilol 6.25 mg Tablet 6.25 mg PO BID 30 Days Qty: 60 0RF ciprofloxacin HCl 250 mg tablet 250 mg PO BID 3 Days Qty: 6 0RF levofloxacin 750 mg tablet 750 mg PO DAILY 5 Days Qty: 5 0RF Problem Reconciliation Problems Reviewed?: Yes Patient Discharge Instructions ACTIVITY: Ambulate as tolerated DIET: continue same diet Patient Instructions: DI for Hypotension, DI for Acute Kidney Injury Providers Primary Care Provider: Harjinder Lora Admit Provider: Justin Hunt Attending Provider: Justin Hunt
== END 2024-01-11 14:47 | disposition home or self-care (01) ==
LOC: ER 23:07 → 2ND 23:11
PROVIDERS: Nurse Practitioner Acute Care; Physician Assistant; Admitting Provider Internal Medicine; Emergency Provider Emergency Medicine; PCP Internal Medicine; Visit Provider Internal Medicine
DX: N17.9 Acute kidney failure, unspecified (principal); I95.9 Hypotension, unspecified; I10 Essential (primary) hypertension; Z87.898 Personal history of other specified conditions; E78.5 Hyperlipidemia, unspecified
CPT/HCPCS: 36415; 71045; 80048; 81001; 82533; 82803; 83605; 83735; 84439; 84443; 84484; 85025; 87086; 87088; 87186; 93005; 99291; G0378; J7120

== ENCOUNTER 2024-01-15 18:00 | Outpatient (CLI) | payer MEDICARE, MEDICAID, SELFPAY ==
[2024-01-15 18:56] LABS: Thyroid Stimulating Hormone 1.45 uIU/mL (0.465-4.68)
[2024-01-15 22:05] LABS: Creatinine,Urine Random 226 mg/dL (Not Estab.)
[2024-01-15 22:09] LABS: Microalbumin/Creatinine Ratio 48.1
== END 2024-01-15 23:59 | disposition home or self-care (01) ==
LOC: LAB.DROPOF 01-16 08:23
PROVIDERS: PCP Internal Medicine; Visit Provider Internal Medicine
DX: N39.0 Urinary tract infection, site not specified (principal); E05.90 Thyrotoxicosis, unspecified without thyrotoxic crisis or storm
CPT/HCPCS: 82043; 82570; 84443; 87086; 87088

== ENCOUNTER 2024-01-15 21:35 | Inpatient (IN) | payer MEDICARE, MEDICAID, SELFPAY ==
[2024-01-15] VITALS (10 sets, daily range): BP systolic 65–154; BP diastolic 38–82; PULSE 41–65; RESP 11–16; TEMP 36.6–36.9; O2SAT 92–100; BMI 27.3; BMI 27.7
--- NOTE | 2024-01-15 21:37 | HMH.EDGENADL ---
Discharge Plan Disposition Patient Disposition: Admitted Condition: Serious Clinical Impressions Clinical Impression: Acute hypotension, Acute nontraumatic kidney injury Accidental overdose Qualifiers: Encounter type: initial encounter Qualified Code(s): T50.901A - Poisoning by unspecified drugs, medicaments and biological substances, accidental (unintentional), initial encounter Discharge ED Provider: Hector Hassan General Adult HPI <JUAN Gutierrez - Last Filed: 01/15/24 22:54> General Chief complaint: Overdose Stated complaint: low BP 55/34 Time Seen by Provider: 01/15/24 21:37 History of Present Illness HPI narrative: Patient presents for evaluation of unintentional overdose. Patient states that she accidentally took 2 doses of her blood pressure medicine. I am not sure which blood pressure medicine that she takes that she is on flecainide twice daily metoprolol twice daily. In any event patient presents hypotensive at 65/38 but also with a heart rate of 64. Patient additionally again has taken all of her nighttime medications that are significantly sedating. Patient does have a history of pituitary tumor that was incompletely resected. She was admitted in the last 30 days for similar hypotensive but not therapeutic misadventure and responded to Solu-Cortef. Patient currently denies chest pain fever chills hemoptysis hematochezia melena nausea vomit diarrhea. Related Data Home Medications Medication Instructions Recorded Confirmed aspirin 81 mg tablet,delayed 81 mg PO DAILY 09/26/22 01/16/24 release (Adult Low Dose Aspirin) flecainide 50 mg tablet 50 mg PO BID 01/11/24 01/16/24 metoprolol succinate 50 mg 25 mg PO BID 01/11/24 01/16/24 tablet,extended release 24 hr tizanidine 4 mg capsule 8 mg PO TIDP PRN muscle spasticity 01/16/24 01/16/24 Previous Rx's Medication Instructions Recorded omeprazole 40 mg capsule,delayed 40 mg PO DAILY #90 caps 07/18/23 release quetiapine 100 mg tablet 100 mg PO HS 30 days #30 tabs 09/29/23 irbesartan 75 mg tablet 75 mg PO HS #30 tabs 11/20/23 ciprofloxacin HCl 250 mg tablet 250 mg PO BID 14 days #28 tabs 01/15/24 gabapentin 800 mg tablet 800 mg PO TID 30 days #90 tabs 01/15/24 oxycodone-acetaminophen 10 mg-325 1 tab PO Q6HP PRN pain #120 tabs 01/15/24 mg tablet Allergies Allergy/AdvReac Type Severity Reaction Status Date / Time codeine Allergy Unknown Unknown Verified 01/16/24 00:52 allergy reaction morphine Allergy Unknown Unknown Verified 01/16/24 00:52 allergy reaction naloxone Allergy Unknown Unknown Verified 01/15/24 13:07 allergy reaction paroxetine [From Paxil] Allergy Unknown Unknown Verified 01/16/24 00:52 allergy reaction PFSH <JUAN Gutierrez - Last Filed: 01/15/24 22:54> [facility] Disclaimer: The information contained in this section may have been updated after the patient was seen, as this information can be updated by other users. Medical History Brain tumor Brain tumor (benign) This is in the old history we will just follow for now. Abnormal renal function Bleeding from right ear Syncope Syncope ROSETTE (obstructive sleep apnea) Fracture of left patella Surgical History History of brain surgery History of hand surgery H/O: hysterectomy has ovaries History of back surgery Family History Other Anemia Asthma Cancer Coronary artery disease Heart attack Hypertension Thyroid disorder Social History (Updated 01/16/24 @ 00:59 by Simon Andino RN) Smoking Status: Current every day smoker second hand exposure: No alcohol intake: never substance use type: former substance user current occupational status: other Travel in the last 8 weeks: None household members: none housing: other current occupational exposures/hazards: No caffeine: No <JUAN Gutierrez - Last Filed: 01/15/24 22:54> ROS Obtained: Yes Systems reviewed as appropriate & no additional complaints except as documented Physical Exam <JUAN Gutierrez - Last Filed: 01/15/24 22:54> General General appearance: in no apparent distress and lethargic (More somnolent than lethargic answers appropriately and arouses easily currently) Head Head exam: atraumatic and normal inspection Eye Eye exam: Present normal appearance, PERRL and EOMI ENT ENT exam: Present normal exam, normal oropharynx and mucous membranes moist Neck Neck exam: Present normal inspection, full ROM and trachea midline; Absent lymphadenopathy Chest Chest inspection: Present normal inspection and symmetric chest wall rise Respiratory Respiratory exam: Present normal lung sounds bilaterally; Absent accessory muscle use Cardiovascular Cardiovascular exam: Present regular rate, normal rhythm, normal heart sounds, +S1 and +S2 Abdominal Exam Abdominal exam: Present soft and normal bowel sounds; Absent tenderness, guarding or rebound Extremities Exam Extremities exam: Present normal inspection and full ROM Back Exam Back exam: Present normal inspection and full ROM; Absent tenderness Neurological Exam Neurological exam: Present oriented X3 and CN II-XII intact; Absent alert (Patient is somnolent as she has taken all of her nighttime psychiatric medications but is arousable and answers questions appropriately) Psychiatric Psychiatric exam: Present normal affect and normal mood; Absent homicidal ideation or suicidal ideation Skin Skin exam: Present warm, dry and normal color Medical Decision Making <JUAN Gutierrez - Last Filed: 01/15/24 22:54> Medical Records Medical records reviewed: Yes I reviewed the patient's medical records. [place] Inquiry Pt receiving controlled substance: No Vital Signs: 01/15/24 21:44 01/15/24 22:10 01/15/24 22:30 Temperature 98.4 F Temperature Source Oral Pulse Rate 56 L 58 L Pulse Rate [Right Brachial] 64 Respiratory Rate 12 16 14 Blood Pressure 84/50 L 88/53 L Blood Pressure [Right Arm] 65/38 L Blood Pressure Mean Blood Pressure Mean [Right Arm] 47 Blood Pressure Source Blood Pressure Source [Right Arm] Automatic Cuff Blood Pressure Position Blood Pressure Position [Right Arm] Supine 02 Sat by Pulse Oximetry 92 L 98 96 Oxygen Delivery Method Room Air Nasal Cannula Nasal Cannula Oxygen Flow Rate (LPM) 01/15/24 22:48 01/15/24 22:49 01/15/24 23:01 Temperature 98.1 F Temperature Source Oral Pulse Rate 65 57 L 41 L Pulse Rate [Right Brachial] Respiratory Rate 11 L 16 Blood Pressure 84/51 L 84/51 L 138/78 Blood Pressure [Right Arm] Blood Pressure Mean 98 Blood Pressure Mean [Right Arm] Blood Pressure Source Automatic Cuff Blood Pressure Source [Right Arm] Blood Pressure Position Sitting Blood Pressure Position [Right Arm] 02 Sat by Pulse Oximetry 97 100 Oxygen Delivery Method Nasal Cannula Nasal Cannula Oxygen Flow Rate (LPM) 2 01/15/24 23:02 01/15/24 23:10 01/15/24 23:15 Temperature Temperature Source Pulse Rate 45 L 48 L 57 L Pulse Rate [Right Brachial] Respiratory Rate Blood Pressure 154/78 H 125/73 133/82 Blood Pressure [Right Arm] Blood Pressure Mean 108 98 99 Blood Pressure Mean [Right Arm] Blood Pressure Source Blood Pressure Source [Right Arm] Blood Pressure Position Blood Pressure Position [Right Arm] 02 Sat by Pulse Oximetry 99 97 97 Oxygen Delivery Method Oxygen Flow Rate (LPM) Lab Data Lab results reviewed: Yes I reviewed the patient's lab results. Lab Results 01/15/24 21:45: WBC 4.2 L, RBC 3.54 L, Hgb 10.2 L, Hct 31.5 L, MCV 89.0, MCH 28.9, MCHC 32.4, RDW 14.2, Plt Count 231, MPV 7.9, Neut % (Auto) 53.2, Lymph % (Auto) 41.3, [place] % (Auto) 4.7, Eos % (Auto) 0.4, Baso % (Auto) 0.4, Neut # (Auto) 2.3, Lymph # (Auto) 1.8, [place] # (Auto) 0.2, Eos # (Auto) 0.0, Baso # (Auto) 0.0, Sodium 137, Potassium 4.6, Chloride 103, Carbon Dioxide 27, Anion Gap 11.6, BUN 22 H, Creatinine 2.00 H, Estimated Creat Clear 39, Estimated GFR 26 L, Est GFR ( Amer) 31 L, Glucose 125 H, Calcium 9.1, Total Bilirubin 0.2, AST 23, ALT 15, Alkaline Phosphatase 113, Troponin I < 0.01, Total Protein 6.8, Albumin 3.8, Globulin 3.0, Albumin/Globulin Ratio 1.3 01/15/24 21:45 01/16/24 10:15 Orders (Tests/Meds): ED MEDICATIONS Generic Name Dose Route Start Last Admin Trade Name Freq PRN Reason Stop Dose Admin Aspirin 81 mg 01/16/24 09:45 01/16/24 10:01 Aspirin Ec 81mg Tablet PO 02/15/24 09:44 81 mg DAILY NISHA Administration Carvedilol 3.125 mg 01/16/24 21:00 01/16/24 20:26 Carvedilol 3.125mg Tablet PO 02/15/24 20:59 3.125 mg BID NISHA Administration Flecainide Acetate 50 mg 01/16/24 09:45 01/16/24 20:27 Flecainide 50mg Tablet PO 02/15/24 09:44 Not Given BID NISHA Gabapentin 600 mg 01/16/24 16:55 01/16/24 20:26 Gabapentin 600mg Tablet PO 02/15/24 16:54 600 mg TID NISHA Administration Heparin Sodium (Porcine) 5,000 unit 01/16/24 09:00 01/16/24 20:25 Heparin Sodium 5,000 Unit/Ml Vial SQ 02/15/24 08:59 5,000 unit TID NISHA Administration Sodium Chloride 1,000 mls @ 150 mls/hr 01/16/24 04:00 01/16/24 18:00 Sod Chlor 0.9% 1000ml Bag IV 02/15/24 03:59 150 mls/hr .Q6H40M NISHA Administration Levofloxacin 750 mg 01/17/24 11:00 Levofloxacin 750 Mg Tablet PO 01/27/24 10:59 1100 NISHA Non-Formulary Medication 4 mg 01/16/24 16:53 01/16/24 17:27 Tizanidine PO 4 mg TIDP PRN Administration muscle spasticity Ondansetron HCl 4 mg 01/16/24 17:51 01/16/24 17:56 Ondansetron 4mg/2ml Vial IV 02/15/24 17:50 4 mg Q6HP PRN Administration Nausea Oxycodone/Acetaminophen 1 each 01/16/24 17:54 Oxycodone 10mg W/Apap 325mg Tablet PO 02/15/24 17:53 Q6HP PRN pain Pantoprazole Sodium 40 mg 01/16/24 09:00 01/16/24 20:26 Pantoprazole 40mg Tablet PO 02/15/24 08:59 40 mg HS NISHA Administration Quetiapine Fumarate 50 mg 01/16/24 21:00 01/16/24 20:26 Quetiapine 100mg Tablet PO 02/15/24 20:59 50 mg HS NISHA Administration Sodium Chloride 10 ml 01/16/24 13:46 Sodium Chloride 0.9% 10ml Flush Syringe IV 02/15/24 13:45 NEEDED PRN Maintain IV Site Discontinued Medications Generic Name Dose Route Start Last Admin Trade Name Freq PRN Reason Stop Dose Admin Hydrocortisone Sodium Succinate 100 mg 01/15/24 21:53 01/15/24 22:11 Hydrocortisone Sod Succinate 100mg Vial IV 01/15/24 21:54 100 mg ONCE ONE Administration Lactated Ringer's 1,000 mls @ 999 mls/hr 01/15/24 21:49 01/15/24 21:51 Lactated Ringer's 1000 Ml Bag IV 01/15/24 22:49 999 mls/hr .Q1H1M ONE Administration Norepinephrine/Dextrose 8 mg in 250 mls @ 3.75 mls/hr 01/15/24 22:45 01/16/24 01:00 Norepinephrine 8mg/250ml-D5w Premix IV 02/14/24 22:44 0 mcg/min .Q24H NISHA 0 mls/hr Titration Protocol 2 MCG/MIN Iopamidol 100 ml 01/16/24 11:29 01/16/24 11:30 Iopamidol-370 (76%);100ml Bottle IV 01/16/24 11:30 100 ml ONCE ONE Administration Levofloxacin 500 mg 01/16/24 11:00 01/16/24 10:27 Levofloxacin 500mg Tab PO 01/26/24 10:59 Not Given Q48H NISHA Oxycodone/Acetaminophen 1 each 01/16/24 09:39 01/16/24 09:53 Oxycodone 5mg W/Apap 325mg Tablet PO 02/15/24 09:38 1 each Q6HP PRN Administration Moderate to Severe Pain (4-10) Oxycodone/Acetaminophen 1.5 each 01/16/24 16:54 01/16/24 17:28 Oxycodone 5mg W/Apap 325mg Tablet PO 02/15/24 09:38 1.5 each Q6HP PRN Administration Moderate to Severe Pain (4-10) Sodium Chloride 50 ml 01/16/24 11:29 01/16/24 11:30 0.9 % Sodium Chloride 50 Ml Vial IV 01/16/24 11:30 50 ml ONCE ONE Administration ORDERS Category Date Time Status Complete Blood Count Auto Diff Stat Lab 01/15/24 21:45 Completed Comprehensive Metabolic Panel Stat Lab 01/15/24 21:45 Completed Trop I [Troponin I] Stat Lab 01/15/24 21:45 Completed Troponin I Q3H Lab 01/16/24 01:10 Completed Troponin I Q3H Lab 01/16/24 04:05 Completed Medical Decision Narrative: In summary patient is a 59-year-old female who presents to the emergency department for evaluation of unintentional overdose. Patient is hypotensive and inappropriately has a heart rate of 60s probably due to beta-blockade but satting at 92% on room air breathing 12 times a minute upon arrival, febrile. Zickel exam is only remarkable for somnolence as patient has taken all of her nighttime medications which makes her sleepy but answers questions appropriately. She denies suicidal homicidal ideations. It was an accident she states.. Differential diagnosis includes therapeutic misadventure with unintentional overdose versus adrenal insufficiency versus pituitary axis suppression. Initial workup will be conducted with hematologic labs. Initial interventions include crystalloid bolus Levophed Solu-Cortef. Initial workup reviewed by me shows that she has a acute kidney injury but the remainder of her laboratory investigations are nonactionable.. Given that I had an interactive discussion with hospital medicine and they have agreed for admission for further evaluation and care. <Hector Hassan MD - Last Filed: 01/16/24 23:56> Vital Signs: 01/15/24 21:44 01/15/24 22:10 01/15/24 22:30 Temperature 98.4 F Temperature Source Oral Pulse Rate 56 L 58 L Pulse Rate [Right Brachial] 64 Respiratory Rate 12 16 14 Blood Pressure 84/50 L 88/53 L Blood Pressure [Right Arm] 65/38 L Blood Pressure Mean Blood Pressure Mean [Right Arm] 47 Blood Pressure Source Blood Pressure Source [Right Arm] Automatic Cuff Blood Pressure Position Blood Pressure Position [Right Arm] Supine 02 Sat by Pulse Oximetry 92 L 98 96 Oxygen Delivery Method Room Air Nasal Cannula Nasal Cannula Oxygen Flow Rate (LPM) 01/15/24 22:48 01/15/24 22:49 01/15/24 23:01 Temperature 98.1 F Temperature Source Oral Pulse Rate 65 57 L 41 L Pulse Rate [Right Brachial] Respiratory Rate 11 L 16 Blood Pressure 84/51 L 84/51 L 138/78 Blood Pressure [Right Arm] Blood Pressure Mean 98 Blood Pressure Mean [Right Arm] Blood Pressure Source Automatic Cuff Blood Pressure Source [Right Arm] Blood Pressure Position Sitting Blood Pressure Position [Right Arm] 02 Sat by Pulse Oximetry 97 100 Oxygen Delivery Method Nasal Cannula Nasal Cannula Oxygen Flow Rate (LPM) 2 01/15/24 23:02 01/15/24 23:10 01/15/24 23:15 Temperature Temperature Source Pulse Rate 45 L 48 L 57 L Pulse Rate [Right Brachial] Respiratory Rate Blood Pressure 154/78 H 125/73 133/82 Blood Pressure [Right Arm] Blood Pressure Mean 108 98 99 Blood Pressure Mean [Right Arm] Blood Pressure Source Blood Pressure Source [Right Arm] Blood Pressure Position Blood Pressure Position [Right Arm] 02 Sat by Pulse Oximetry 99 97 97 Oxygen Delivery Method Oxygen Flow Rate (LPM) Lab Data Lab Results 01/15/24 21:45: WBC 4.2 L, RBC 3.54 L, Hgb 10.2 L, Hct 31.5 L, MCV 89.0, MCH 28.9, MCHC 32.4, RDW 14.2, Plt Count 231, MPV 7.9, Neut % (Auto) 53.2, Lymph % (Auto) 41.3, [place] % (Auto) 4.7, Eos % (Auto) 0.4, Baso % (Auto) 0.4, Neut # (Auto) 2.3, Lymph # (Auto) 1.8, [place] # (Auto) 0.2, Eos # (Auto) 0.0, Baso # (Auto) 0.0, Sodium 137, Potassium 4.6, Chloride 103, Carbon Dioxide 27, Anion Gap 11.6, BUN 22 H, Creatinine 2.00 H, Estimated Creat Clear 39, Estimated GFR 26 L, Est GFR ( Amer) 31 L, Glucose 125 H, Calcium 9.1, Total Bilirubin 0.2, AST 23, ALT 15, Alkaline Phosphatase 113, Troponin I < 0.01, Total Protein 6.8, Albumin 3.8, Globulin 3.0, Albumin/Globulin Ratio 1.3 Orders (Tests/Meds): ED MEDICATIONS Generic Name Dose Route Start Last Admin Trade Name Freq PRN Reason Stop Dose Admin Aspirin 81 mg 01/16/24 09:45 01/16/24 10:01 Aspirin Ec 81mg Tablet PO 02/15/24 09:44 81 mg DAILY NISHA Administration Carvedilol 3.125 mg 01/16/24 21:00 01/16/24 20:26 Carvedilol 3.125mg Tablet PO 02/15/24 20:59 3.125 mg BID NISHA Administration Flecainide Acetate 50 mg 01/16/24 09:45 01/16/24 20:27 Flecainide 50mg Tablet PO 02/15/24 09:44 Not Given BID NISHA Gabapentin 600 mg 01/16/24 16:55 01/16/24 20:26 Gabapentin 600mg Tablet PO 02/15/24 16:54 600 mg TID NISHA Administration Heparin Sodium (Porcine) 5,000 unit 01/16/24 09:00 01/16/24 20:25 Heparin Sodium 5,000 Unit/Ml Vial SQ 02/15/24 08:59 5,000 unit TID NISHA Administration Sodium Chloride 1,000 mls @ 150 mls/hr 01/16/24 04:00 01/16/24 18:00 Sod Chlor 0.9% 1000ml Bag IV 02/15/24 03:59 150 mls/hr .Q6H40M NISHA Administration Levofloxacin 750 mg 01/17/24 11:00 Levofloxacin 750 Mg Tablet PO 01/27/24 10:59 1100 [facility] Non-Formulary Medication 4 mg 01/16/24 16:53 01/16/24 17:27 Tizanidine PO 4 mg TIDP PRN Administration muscle spasticity Ondansetron HCl 4 mg 01/16/24 17:51 01/16/24 17:56 Ondansetron 4mg/2ml Vial IV 02/15/24 17:50 4 mg Q6HP PRN Administration Nausea Oxycodone/Acetaminophen 1 each 01/16/24 17:54 Oxycodone 10mg W/Apap 325mg Tablet PO 02/15/24 17:53 Q6HP PRN pain Pantoprazole Sodium 40 mg 01/16/24 09:00 01/16/24 20:26 Pantoprazole 40mg Tablet PO 02/15/24 08:59 40 mg HS NISHA Administration Quetiapine Fumarate 50 mg 01/16/24 21:00 01/16/24 20:26 Quetiapine 100mg Tablet PO 02/15/24 20:59 50 mg HS NISHA Administration Sodium Chloride 10 ml 01/16/24 13:46 Sodium Chloride 0.9% 10ml Flush Syringe IV 02/15/24 13:45 NEEDED PRN Maintain IV Site Discontinued Medications Generic Name Dose Route Start Last Admin Trade Name Freq PRN Reason Stop Dose Admin Hydrocortisone Sodium Succinate 100 mg 01/15/24 21:53 01/15/24 22:11 Hydrocortisone Sod Succinate 100mg Vial IV 01/15/24 21:54 100 mg ONCE ONE Administration Lactated Ringer's 1,000 mls @ 999 mls/hr 01/15/24 21:49 01/15/24 21:51 Lactated Ringer's 1000 Ml Bag IV 01/15/24 22:49 999 mls/hr .Q1H1M ONE Administration Norepinephrine/Dextrose 8 mg in 250 mls @ 3.75 mls/hr 01/15/24 22:45 01/16/24 01:00 Norepinephrine 8mg/250ml-D5w Premix IV 02/14/24 22:44 0 mcg/min .Q24H NISHA 0 mls/hr Titration Protocol 2 MCG/MIN Iopamidol 100 ml 01/16/24 11:29 01/16/24 11:30 Iopamidol-370 (76%);100ml Bottle IV 01/16/24 11:30 100 ml ONCE ONE Administration Levofloxacin 500 mg 01/16/24 11:00 01/16/24 10:27 Levofloxacin 500mg Tab PO 01/26/24 10:59 Not Given Q48H NISHA Oxycodone/Acetaminophen 1 each 01/16/24 09:39 01/16/24 09:53 Oxycodone 5mg W/Apap 325mg Tablet PO 02/15/24 09:38 1 each Q6HP PRN Administration Moderate to Severe Pain (4-10) Oxycodone/Acetaminophen 1.5 each 01/16/24 16:54 01/16/24 17:28 Oxycodone 5mg W/Apap 325mg Tablet PO 02/15/24 09:38 1.5 each Q6HP PRN Administration Moderate to Severe Pain (4-10) Sodium Chloride 50 ml 01/16/24 11:29 01/16/24 11:30 0.9 % Sodium Chloride 50 Ml Vial IV 01/16/24 11:30 50 ml ONCE ONE Administration ORDERS Category Date Time Status Complete Blood Count Auto Diff Stat Lab 01/15/24 21:45 Completed Comprehensive Metabolic Panel Stat Lab 01/15/24 21:45 Completed Trop I [Troponin I] Stat Lab 01/15/24 21:45 Completed Troponin I Q3H Lab 01/16/24 01:10 Completed Troponin I Q3H Lab 01/16/24 04:05 Completed ECG Data Tracing #1: I reviewed this ECG and interpreted as documented below: Sinus rhythm 56 beats a minute without ST or T wave changes concerning for acute ischemia. IN 180, QRS 90, QTc 447. [place] normal Medical Decision Narrative: In summary patient is a 59-year-old female who presents to the emergency department for evaluation of unintentional overdose. Patient is hypotensive and inappropriately has a heart rate of 60s probably due to beta-blockade but satting at 92% on room air breathing 12 times a minute. Upon arrival, febrile. Physical exam is only remarkable for somnolence as patient has taken all of her nighttime medications which makes her sleepy but answers questions appropriately. She denies suicidal homicidal ideations. It was an accident she states.. Differential diagnosis includes unintentional overdose versus adrenal insufficiency versus pituitary axis suppression, UTI, sepsis, among others. Initial workup will be conducted with hematologic labs. Initial interventions include crystalloid bolus Levophed Solu-Cortef. Initial workup reviewed by me shows that she has an acute kidney injury but the remainder of her laboratory investigations are nonactionable. Given that I had an interactive discussion with hospital medicine and they have agreed for admission for further evaluation and care. I was consulted by the DIAMANTE, and we discussed the complexity of the problems being addressed. I approved the treatment and management plan for this patient?s care in the Emergency Department, thus performing a substantive portion of the medical decision making. Hector Hassan MD Critical Care <JUAN Gutierrez - Last Filed: 01/15/24 22:54> Critical Care Time Critical Care Time: Yes Attestation: On 01/15/24, the high probability of a clinically significant, sudden or life threatening deterioration of the following system(cardiopulmonary) required my full and direct attention, intervention and personal management. The time I documented below is in addition to time spent performing reported procedures but includes the following listed in this critical care notation. Total Time Total Critical Care Time: 30 <Hector Hassan MD - Last Filed: 01/16/24 23:56> Total Time Total Critical Care Time: 35
[2024-01-15] MEDS: LACTATED RINGERS 1000ML 1,000 ML 999 ML IV (21:51)
[2024-01-15 22:08] LABS: Basophils % 0.4 % (0.1-2.0); Eosinophils % 0.4 % (0.1-12.0); Hematocrit 31.5 % (37.0-47.0); Hemoglobin 10.2 g/dL (12.2-16.2); Lymphocytes # 1.8 K/mm3 (0.7-4.5); Lymphocytes % 41.3 % (10-50); Mean Corpuscular HGB Conc 32.4 g/dL (31.8-35.4); Mean Corpuscular Hemoglobin 28.9 pg (27.0-31.2); Mean Platelet Volume 7.9 fl (7.4-10.4); Monocytes # 0.2 K/mm3 (0.1-1.0); Monocytes % 4.7 % (1.7-9.3); Neutrophils # 2.3 K/mm3 (1.8-7.8); Neutrophils % 53.2 % (37.0-80.0); Platelet Count 231 K/mm3 (142-424); Red Blood Count 3.54 M/mm3 (4.20-5.40); Red Cell Distribution Width 14.2 % (11.5-17.5); White Blood Count 4.2 K/mm3 (4.8-10.8)
[2024-01-15 22:10] LABS: Chloride 103 mmol/L (98-107); Potassium 4.6 mmoL/L (3.5-5.1); Sodium 137 mmol/L (136-145)
[2024-01-15] MEDS: HYDROCORTISONE SOD SUCCINATE 100MG VIAL 100 MG IV (22:11)
[2024-01-15 22:13] LABS: Alanine Aminotransferase 15 U/L (12-78); Albumin Level 3.8 g/dl (3.5-5.0); Albumin/Globulin Ratio 1.3 (1.1-1.8); Alkaline Phosphatase 113 U/L (38-126); Anion Gap 11.6 mEq/L (5-15); Aspartate Amino Transferase 23 U/L (14-36); Bilirubin,Total 0.2 mg/dl (0.2-1.3); Blood Urea Nitrogen 22 mg/dl (7-17); Calcium 9.1 mg/dl (8.4-10.2); Carbon Dioxide 27 mmol/L (22.0-30.0); Creatinine Clearance Estimated 39 mL/min (50-200); Estimated Glomerular Filt Rate 26 ml/min (>60); GFR (African American) 31 ML/MIN (>60); Glucose 125 mg/dl (74-100); Total Protein,Serum 6.8 g/dl (6.3-8.2)
[2024-01-15 22:30] LABS: Troponin I < 0.01 ng/ml (0.00-0.034)
--- NOTE | 2024-01-15 22:36 | PC.NURSE ---
contacted house, spoke with astrid randle
--- NOTE | 2024-01-15 22:37 | PC.NURSE ---
Contacted Romulo with after hours pharmacy to confirm levophed order.
--- NOTE | 2024-01-15 22:39 | ECG_ITS ---
APPROVED REPORT Exam: Resting ECG HR:56 bpm ECG Measurements Heart Rate 56 AXES GA 180 P 55 QRSd 90 QRS 62 QT 457 T 53 QTc 447 Conclusion SINUS BRADYCARDIA BORDERLINE ECG Electronically signed by : OG MYERS, 01/16/2024 07:25:53
[2024-01-15] MEDS: NOREPINEPHRINE BITARTRATE/D5W 8 MG/250 ML PLAST..BAG 15 MG IV (22:43)
--- NOTE | 2024-01-15 22:58 | EXP.HP ---
History of Present Illness *Admission Date: 01/15/24 *Reason for visit:: Hypotension *History of present illness: This is a 59-year-old female with a past medical history of lumbar radiculopathy, degenerative disc, pituitary adenoma, HTN, HLD who presents emergency department today with complaints of low blood pressure. She does have a history of hypertension for which she takes blood pressure medicine. stated she accidentally took double dose patient stated that she took her motoprolol but not the other one patient is at home ibersartan and metoprolol. States that she felt dizzy and lightheaded . On arrival to the emergency department she was noted to have systolic blood pressure in the 60s with some mild dizziness. Admitted for further monitoring and managment. [facility] Disclaimer: The information contained in this section may have been updated after the patient was seen, as this information can be updated by other users. Medical History Brain tumor Brain tumor (benign) This is in the old history we will just follow for now. Abnormal renal function Bleeding from right ear Syncope Syncope ROSETTE (obstructive sleep apnea) Fracture of left patella Surgical History History of brain surgery History of hand surgery H/O: hysterectomy has ovaries History of back surgery Family History Other Anemia Asthma Cancer Coronary artery disease Heart attack Hypertension Thyroid disorder Social History (Updated 01/16/24 @ 00:59 by Simon Andino RN) Smoking Status: Current every day smoker second hand exposure: No alcohol intake: never substance use type: former substance user current occupational status: other Travel in the last 8 weeks: None household members: none housing: other current occupational exposures/hazards: No caffeine: No Review of Systems Review of Systems Review of systems:: pertinent systems reviewed and negative unless documented below Meds Home Medications and Allergies Home Medications Medication Instructions Recorded Confirmed Type aspirin 81 mg tablet,delayed 81 mg PO DAILY 09/26/22 01/16/24 History release (Adult Low Dose Aspirin) omeprazole 40 mg capsule,delayed 40 mg PO DAILY #90 caps 07/18/23 01/16/24 Rx release quetiapine 100 mg tablet 100 mg PO HS 30 days #30 tabs 09/29/23 01/16/24 Rx irbesartan 75 mg tablet 75 mg PO HS #30 tabs 11/20/23 01/16/24 Rx flecainide 50 mg tablet 50 mg PO BID 01/11/24 01/16/24 History metoprolol succinate 50 mg 25 mg PO BID 01/11/24 01/16/24 History tablet,extended release 24 hr ciprofloxacin HCl 250 mg tablet 250 mg PO BID 14 days #28 tabs 01/15/24 01/16/24 Rx gabapentin 800 mg tablet 800 mg PO TID 30 days #90 tabs 01/15/24 01/16/24 Rx oxycodone-acetaminophen 10 mg-325 1 tab PO Q6HP PRN pain #120 tabs 01/15/24 01/16/24 Rx mg tablet tizanidine 4 mg capsule 8 mg PO TIDP PRN muscle spasticity 01/16/24 01/16/24 History New Prescriptions to Start Prescriptions: Allergies Allergy/AdvReac Type Severity Reaction Status Date / Time codeine Allergy Unknown Unknown Verified 01/16/24 00:52 allergy reaction morphine Allergy Unknown Unknown Verified 01/16/24 00:52 allergy reaction naloxone Allergy Unknown Unknown Verified 01/15/24 13:07 allergy reaction paroxetine [From Paxil] Allergy Unknown Unknown Verified 01/16/24 00:52 allergy reaction Exam Data for Last 24 hours Vital signs and Labs for Last 24 Hours: Temp Pulse Resp BP Pulse Ox O2 Del Method O2 Flow Rate 98.1 F 65 11 L 84/51 L 92 L Nasal Cannula 2 01/15/24 22:48 01/15/24 22:48 01/15/24 22:48 01/15/24 22:48 01/15/24 21:44 01/15/24 22:48 01/15/24 22:48 Laboratory Results - last 24 hr 01/15/24 21:45: WBC 4.2 L, RBC 3.54 L, Hgb 10.2 L, Hct 31.5 L, MCV 89.0, MCH 28.9, MCHC 32.4, RDW 14.2, Plt Count 231, MPV 7.9, Neut % (Auto) 53.2, Lymph % (Auto) 41.3, [place] % (Auto) 4.7, Eos % (Auto) 0.4, Baso % (Auto) 0.4, Neut # (Auto) 2.3, Lymph # (Auto) 1.8, [place] # (Auto) 0.2, Eos # (Auto) 0.0, Baso # (Auto) 0.0, Sodium 137, Potassium 4.6, Chloride 103, Carbon Dioxide 27, Anion Gap 11.6, BUN 22 H, Creatinine 2.00 H, Estimated Creat Clear 39, Estimated GFR 26 L, Est GFR ( Amer) 31 L, Glucose 125 H, Calcium 9.1, Total Bilirubin 0.2, AST 23, ALT 15, Alkaline Phosphatase 113, Troponin I < 0.01, Total Protein 6.8, Albumin 3.8, Globulin 3.0, Albumin/Globulin Ratio 1.3 I & O for Last 24 hours: Intake & Output 01/12/24 01/13/24 01/14/24 01/15/24 23:59 23:59 23:59 23:59 Weight 79.379 kg Constitutional Constitutional: no acute distress *Routine HEENT Exam Head: Present normocephalic Eye: Present EOMI and PERRL ENT: Present mucous membranes moist *Routine Neck Exam Neck: Present supple; Absent lymphadenopathy *Routine Respiratory Exam Respiratory: Present CTA bilaterally *Routine Cardiovascular Exam Cardiovascular: Present RRR *Routine Abdominal Exam Abdominal: Present soft and normoactive bowel sounds; Absent tenderness *Routine Rectal Exam Rectal:: deferred *Routine Genitalia Exam Genitalia:: deferred *Routine Extremities Exam Extremities: Absent cyanosis, clubbing or edema *Routine Skin Exam Skin: Present warm; Absent rash *Routine Neurological Exam Neurological: Present alert and oriented X3 H&P: Result Imaging and Cardiology EKG: Status: image reviewed by me, Preliminary report and final report Assessment and Plan *Assessment and plan (1) Accidental overdose: Status: Acute Qualifiers: Encounter type: initial encounter Qualified Code(s): T50.901A - Poisoning by unspecified drugs, medicaments and biological substances, accidental (unintentional), initial encounter Category: Medical Code(s): T50.901A - Poisoning by unspecified drugs, medicaments and biological substances, accidental (unintentional), initial encounter (2) Hypotension: Status: Acute Qualifiers: Hypotension type: unspecified hypotension type Qualified Code(s): I95.9 - Hypotension, unspecified Category: Medical Code(s): I95.9 - Hypotension, unspecified (3) Hypertension: Status: Acute Qualifiers: Hypertension type: unspecified Qualified Code(s): I10 - Essential (primary) hypertension Category: Medical Code(s): I10 - Essential (primary) hypertension (4) History of pituitary tumor: Status: Chronic Category: Medical Code(s): Z87.898 - Personal history of other specified conditions (5) HLD (hyperlipidemia): Status: Chronic Qualifiers: Hyperlipidemia type: unspecified Qualified Code(s): E78.5 - Hyperlipidemia, unspecified Category: Medical Code(s): E78.5 - Hyperlipidemia, unspecified Plan 59-year-old female with a past medical history of lumbar radiculopathy, degenerative disc, pituitary adenoma, HTN, HLD who presents emergency department today with complaints of low blood pressure. She does have a history of hypertension for which she takes blood pressure medicine. reported had taken double doses of metoprolol but not the other one . of note, by chart reviewed patient was seen earlier today at his PCP office, c/o abnormal reading of her BP. on arrival patient persistent hypotensive. labs are unremarkable. EKG normal. patient was started on levophed. Admit to ICU #Aciddental overdose #Hypotension #History of pituitary tumor Admit patient for inpatient management continue cardiac monitoring. wean off levophed continue IV fluid. 1L given at ED Patient does have a history of pituitary tumor that was incompletely resected. She was admitted in the last 30 days for similar hypotensive and responded to Solu-Cortef. Unclear if these swing of the BP are solely on double dose of metoprolol vs hypotension due to lack of ACTH obtain ACTH, LH, FSH, and cortisol 100mg solumedrol given at ED monitor VS per unit repeat labs in the morning #Hypertension Hold all antihypertensive agents at this time #Anxiety on seroquel resume levofloxacin for previous E.coli UTI. DVT PPx subcu heparin Full code Rounded on patient after nurse practitioner. Personally examined and interviewed patient. Agree with exam findings and care plan as documented.
[2024-01-16] VITALS (11 sets, daily range): BP systolic 100–192; BP diastolic 59–122; PULSE 58–86; RESP 14–18; TEMP 36.5–36.8; O2SAT 86–100; BMI 27.7
--- NOTE | 2024-01-16 00:08 | PC.NURSE ---
Patient became hypoxic while sleeping. She was placed on 3L/NC and quickly recovered to 97%. Tolerating well.
[2024-01-16 01:43] LABS: Troponin I < 0.01 ng/ml (0.00-0.034)
[2024-01-16] MEDS: 0.9 % SODIUM CHLORIDE 1000ML 1,000 ML 150 ML IV ×2 (04:08→18:00)
[2024-01-16 05:11] LABS: Troponin I < 0.01 ng/ml (0.00-0.034)
[2024-01-16 05:54] LABS: Thyroid Stimulating Hormone 0.72 uIU/mL (0.465-4.68)
--- NOTE | 2024-01-16 08:11 | HMH.PHAINT1 ---
Pharmacy Intervention Comments: home medication list verified using list from outpatient pharmacy
[2024-01-16] MEDS: PANTOPRAZOLE 40MG TABLET 40 MG PO ×2 (09:02→20:26)
[2024-01-16] MEDS: HEPARIN SODIUM 5,000 UNIT/ML VIAL 5000 UNIT SQ ×2 (09:02→20:25)
--- NOTE | 2024-01-16 09:32 | CT_ITS ---
FINAL REPORT TECHNIQUE: Pre-and postcontrast images of the abdomen through the pelvis were performed by computed tomography. Extensive 3-D reconstruction images were performed. A CTA was performed. This study was performed with techniques to keep radiation doses as low as reasonably achievable (ALARA). Individualized dose reduction techniques using automated exposure control or adjustment of mA and/or kV according to the patient's size were employed. CLINICAL HISTORY: eval for renal artery stenosis COMPARISON: None FINDINGS: ABDOMEN: The lung bases are clear. Precontrast images demonstrate no evidence of nephrolithiasis. The gallbladder is mildly distended. There are a few left hepatic cyst. The remaining solid organs are normal. PELVIS: The appendix is normal. The urinary bladder is unremarkable. Status post hysterectomy. There is no significant free fluid or adenopathy. The bony pelvis is unremarkable. CTA: The abdominal aorta is proper caliber. The renal arteries are widely patent. Small accessory upper pole left renal artery is noted. Central mesenteric vessels are patent. The iliac arteries are widely patent. IMPRESSION: No evidence of renal artery stenosis. Reviewed, Interpreted and Dictated by Min Gilbert MD Transcribed by Bernadette Roblero Authenticated and [facility]
--- NOTE | 2024-01-16 09:41 | HMH.ITSTN ---
I spoke with Nurse Arnaldo, I notified him that patient current labs, GFR 26 Creat 2.0. Per protocol we do not give contrast when GFR is under 30. He will notify Dr. Tidwell of labs and see how to proceed.
[2024-01-16] MEDS: OXYCODONE 5MG W/APAP 325MG TABLET 1 EACH PO (09:53)
[2024-01-16] MEDS: levoFLOXacin 500MG TAB 500 MG PO (09:54)
[2024-01-16] MEDS: ASPIRIN EC 81MG TABLET 81 MG PO (10:01)
[2024-01-16] MEDS: FLECAINIDE 50MG TABLET 50 MG PO (10:01)
--- NOTE | 2024-01-16 10:12 | P.CONCA_ITS ---
History of Present Illness History of Present Illness Consult date: 01/16/24 Requesting physician: Jarad Tidwell Consult reason: known to you Chief complaint: Labile HTN, flecainide use Additional Medical History:: 1. Hypertension A. Echocardiogram, 04/06/2021, mild LAE, normal LV size with EF 55% and no regional WMA. Trace MR/TR with RVSP 32 mmHg. B. Renal ultrasound, 08/2023, unremarkable C. Renal duplex, 08/2023, less than 60% renal artery stenosis bilaterally. D. Abdomen CT 11/2023, unremarkable B. 24-hour urine for VMA metanephrines and catecholamines, 08/2023, normal except mild elevation of dopamine (75) and plasma norepinephrine (1208) 2. Chest pain A. LHC, 06/01/2021, normal coronaries, EF and LVEDP. B. CTA of the chest, 06/01/2021, no acute findings. No PE or aortic aneurysm or dissection. Coronary artery calcifications noted. 3. History of altered mental status A. Head CT, 07/12/2021, no acute findings. Paranasal sinus disease noted. B. Head CTA, 07/12/2021, 3 x 2 mm GREGORY aneurysm in clinoid portion. Lucency through the cavernous and clinoid portion of LICA may represent artifact. 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 Paranasal sinus disease. C. Brain MRI 07/13/2021, no acute intracranial findings. Paranasal sinus disease noted. 3 mm R ICA aneurysm noted. D. EEG, 08/04/2021, normal. E. Head CT, 11/2023, no acute findings. Ethmoid air cell mucosal thickening with possible acute sinusitis F. Head CTA 12/17/2023, no large vessel occlusion or significant stenosis. Patent GREGORY stent. 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 G. Neck CTA 12/17/2023, no stenosis or occlusion. 4. Moderate ROSETTE 5. Psychiatric illness/major depressive disorder A. History of suicide attempt with overdose in 1998 and again in 2004 B. History of son dying at the age of 11 in 1998 6. History of pituitary tumor status post transsphenoidal resection at [facility] A. Reportedly had incomplete resection 7. History of cervical and lumbar spondylosis with radiculopathy status post cervical and lumbar spine surgery A. Chronic pain 8. History of polysubstance abuse A. History of Suboxone 9. Unknown arrhythmias, 2020 A. Started on flecainide by extension course coordinator at [facility] in 2020 with control of arrhythmias and improvement in symptoms. History of present illness: This is a 59-year-old female with a past medical history of lumbar radiculopathy, degenerative disc, pituitary adenoma, HTN, HLD who presents emergency department today with complaints of low blood pressure. She does have a history of hypertension for which she takes blood pressure medicine. stated she accidentally took double dose patient stated that she took her motoprolol but not the other one patient is at home ibersartan and metoprolol. States that she felt dizzy and lightheaded . On arrival to the emergency department she was noted to have systolic blood pressure in the 60s with some mild dizziness. Admitted for further monitoring and managment. The above per Pepe Fatima APRN for the Hospitalist service. Cardiology asked to see to help with control of HTN. Pt with labile readings from systolic of 60 up to 180 mm Hg at home. This has been worked up in the past with recent renal duplex and ultrasound earlier this year being unremarkable. Per my note from earlier this year, pt's boyfriend expressed concern that her pain med dosing may correlate to her low BP. [facility] Disclaimer: The information contained in this section may have been updated after the patient was seen, as this information can be updated by other users. Medical History Brain tumor Brain tumor (benign) This is in the old history we will just follow for now. Abnormal renal function Bleeding from right ear Syncope Syncope ROSETTE (obstructive sleep apnea) Fracture of left patella Surgical History History of brain surgery History of hand surgery H/O: hysterectomy has ovaries History of back surgery Family History Other Anemia Asthma Cancer Coronary artery disease Heart attack Hypertension Thyroid disorder Social History (Updated 01/16/24 @ 00:59 by Simon Andino RN) Smoking Status: Current every day smoker second hand exposure: No alcohol intake: never substance use type: former substance user current occupational status: other Travel in the last 8 weeks: None household members: none housing: other current occupational exposures/hazards: No caffeine: No Review of Systems Review of Systems Review of systems:: pertinent systems reviewed and negative unless documented below Constitutional Constitutional: Reports weakness *Cardiovascular Cardiovascular: Reports chest pain and Reports dyspnea on exertion *Respiratory Respiratory: Reports dyspnea on exertion *Neurologic Neurologic: Reports weakness Exam Data for Last 24 hours Vital signs and Labs for Last 24 Hours: Temp Pulse Resp BP Pulse Ox O2 Del Method O2 Flow Rate 98.2 F 60 16 112/68 96 Room Air 2 01/16/24 08:00 01/16/24 08:00 01/16/24 08:00 01/16/24 08:00 01/16/24 08:00 01/16/24 08:44 01/16/24 04:00 Laboratory Results - last 24 hr 01/15/24 21:45: WBC 4.2 L, RBC 3.54 L, Hgb 10.2 L, Hct 31.5 L, MCV 89.0, MCH 28.9, MCHC 32.4, RDW 14.2, Plt Count 231, MPV 7.9, Neut % (Auto) 53.2, Lymph % (Auto) 41.3, [place] % (Auto) 4.7, Eos % (Auto) 0.4, Baso % (Auto) 0.4, Neut # (Auto) 2.3, Lymph # (Auto) 1.8, [place] # (Auto) 0.2, Eos # (Auto) 0.0, Baso # (Auto) 0.0, Sodium 137, Potassium 4.6, Chloride 103, Carbon Dioxide 27, Anion Gap 11.6, BUN 22 H, Creatinine 2.00 H, Estimated Creat Clear 39, Estimated GFR 26 L, Est GFR ( Amer) 31 L, Glucose 125 H, Calcium 9.1, Total Bilirubin 0.2, AST 23, ALT 15, Alkaline Phosphatase 113, Troponin I < 0.01, Total Protein 6.8, Albumin 3.8, Globulin 3.0, Albumin/Globulin Ratio 1.3 01/16/24 01:10: Troponin I < 0.01 01/16/24 04:05: Troponin I < 0.01, TSH 0.72 D I & O for Last 24 hours: Intake & Output 01/13/24 01/14/24 01/15/24 01/16/24 11:59 11:59 11:59 11:59 Intake Total 1121.750 / 1121.750 Output Total 400 / 400 Balance 721.750 / 721.750 Weight 176 lb 11.208 oz Constitutional Constitutional: no acute distress *Routine Respiratory Exam Respiratory: Present CTA bilaterally *Routine Cardiovascular Exam Cardiovascular: Present RRR *Routine Extremities Exam Extremities: Absent edema *Routine Neurological Exam Neurological: Present alert, oriented X3 and CN II-XII intact Meds Home Medications and Allergies Home Medications Medication Instructions Recorded Confirmed Type aspirin 81 mg tablet,delayed 81 mg PO DAILY 09/26/22 01/16/24 History release (Adult Low Dose Aspirin) omeprazole 40 mg capsule,delayed 40 mg PO DAILY #90 caps 07/18/23 01/16/24 Rx release quetiapine 100 mg tablet 100 mg PO HS 30 days #30 tabs 09/29/23 01/16/24 Rx irbesartan 75 mg tablet 75 mg PO HS #30 tabs 11/20/23 01/16/24 Rx flecainide 50 mg tablet 50 mg PO BID 01/11/24 01/16/24 History metoprolol succinate 50 mg 25 mg PO BID 01/11/24 01/16/24 History tablet,extended release 24 hr ciprofloxacin HCl 250 mg tablet 250 mg PO BID 14 days #28 tabs 01/15/24 01/16/24 Rx gabapentin 800 mg tablet 800 mg PO TID 30 days #90 tabs 01/15/24 01/16/24 Rx oxycodone-acetaminophen 10 mg-325 1 tab PO Q6HP PRN pain #120 tabs 01/15/24 01/16/24 Rx mg tablet tizanidine 4 mg capsule 8 mg PO TIDP PRN muscle spasticity 01/16/24 01/16/24 History New Prescriptions to Start Prescriptions: Allergies Allergy/AdvReac Type Severity Reaction Status Date / Time codeine Allergy Unknown Unknown Verified 01/16/24 00:52 allergy reaction morphine Allergy Unknown Unknown Verified 01/16/24 00:52 allergy reaction naloxone Allergy Unknown Unknown Verified 01/15/24 13:07 allergy reaction paroxetine [From Paxil] Allergy Unknown Unknown Verified 01/16/24 00:52 allergy reaction Assessment and Plan *Assessment and plan (1) Labile hypertension: Status: Acute Category: Medical Code(s): R09.89 - Other specified symptoms and signs involving the circulatory and respiratory systems (2) Acute hypotension: Status: Acute Category: Medical Code(s): I95.9 - Hypotension, unspecified (3) UTI (urinary tract infection): Status: Acute Qualifiers: Hematuria presence: without hematuria Urinary tract infection type: site unspecified Qualified Code(s): N39.0 - Urinary tract infection, site not specified Category: Medical Code(s): N39.0 - Urinary tract infection, site not specified (4) ROSETTE (obstructive sleep apnea): Status: Chronic Category: Medical Code(s): G47.33 - Obstructive sleep apnea (adult) (pediatric) (5) Acute kidney injury (nontraumatic): Status: Acute Category: Medical Code(s): N17.9 - Acute kidney failure, unspecified Plan 1. Labile HTN with acute hypotension and confusion -switch metoprolol to coreg for better control of BP since stopping ARB in light of JOSE ENRIQUE -recommend CTA of abdomen when renal functions improved 2. UTI -defer to Dr. Tidwell 3. History of substance use with Major Depressive disorder 4. JOSE ENRIQUE with recent ARB therapy -discontinue ARB -improving 5. History of reportedly incomplete pituitary surgery 6. History of ROSETTE, untreated 7. Flecainide use check CTA of abdomen to assess for MAURICIO switch metoprolol to coreg for BP control stop ARB therapy
[2024-01-16 10:34] LABS: Anion Gap 12.7 mEq/L (5-15); Blood Urea Nitrogen 19 mg/dl (7-17); Calcium 8.9 mg/dl (8.4-10.2); Carbon Dioxide 24 mmol/L (22.0-30.0); Chloride 105 mmol/L (98-107); Creatinine Clearance Estimated 71 mL/min (50-200); Estimated Glomerular Filt Rate 51 ml/min (>60); GFR (African American) 62 ML/MIN (>60); Glucose 165 mg/dl (74-100); Potassium 3.7 mmoL/L (3.5-5.1); Sodium 138 mmol/L (136-145)
[2024-01-16] MEDS: IOPAMIDOL-370 (76%);100ML BOTTLE 100 ML IV (11:30)
[2024-01-16] MEDS: 0.9 % SODIUM CHLORIDE 50 ML VIAL IV (11:30)
--- OUTSIDE RECORDS SUMMARY | 2024-01-16 14:53 | XMS_ITS ---
Author Name Dmitri Vega Address [address] [place] [id number] Organization Unknown Address [address] [place] [id number] ALLERGIES AND ADVERSE REACTIONS No information ASSESSMENT No information CHIEF COMPLAINT No information MEDICATIONS No information OBJECTIVE DATA No information PHYSICAL EXAMINATION No information TREATMENT PLAN Planned Care Start Date Provider Encounter for Check-up [phone] [facility] PROBLEMS No information RESULTS No information REVIEW OF SYSTEMS No information SUBJECTIVE DATA No information VITAL SIGNS No information
--- NOTE | 2024-01-16 16:56 | P.PN_ITS ---
Subjective *Date: 01/16/24 *Time: 16:56 Interval history: Patient's blood pressure little better this morning. Denies any chest pain or shortness of breath. Through the course of the morning however has developed a headache and became a little more shaky. States she has been on gabapentin and oxycodone for many years. Concern for some withdrawal symptoms. Denies any nausea or vomiting. Medical Exam Vital signs and Labs for Last 24 Hours: Vital Signs Temp Pulse Pulse Resp BP BP Pulse Ox 01/16/24 14:46 01/16/24 11:52 01/16/24 10:18 01/16/24 08:44 01/16/24 08:20 01/16/24 08:00 98.2 F 60 16 112/68 96 01/16/24 04:00 67 01/16/24 04:00 97.9 F 62 14 132/79 100 01/16/24 02:00 98 F 63 14 118/76 99 01/16/24 01:30 98 F 64 14 112/70 100 01/16/24 01:00 98 F 67 18 150/90 H 98 01/16/24 00:30 98 F 66 14 116/75 98 01/16/24 00:08 60 14 97 01/16/24 00:01 66 01/16/24 00:00 98 F 58 L 14 100/68 L 86 L 01/15/24 23:30 97.9 F 64 14 108/59 L 97 01/15/24 23:15 57 L 133/82 97 01/15/24 23:10 48 L 125/73 97 01/15/24 23:02 45 L 154/78 H 99 01/15/24 23:01 41 L 138/78 100 01/15/24 22:49 57 L 16 84/51 L 97 01/15/24 22:48 98.1 F 65 11 L 84/51 L 01/15/24 22:30 58 L 14 88/53 L 96 01/15/24 22:10 56 L 16 84/50 L 98 01/15/24 21:44 98.4 F 64 12 65/38 L 92 L O2 Del Method O2 Flow Rate 01/16/24 14:46 Room Air 01/16/24 11:52 Room Air 01/16/24 10:18 Room Air 01/16/24 08:44 Room Air 01/16/24 08:20 Room Air 01/16/24 08:00 Room Air 01/16/24 04:00 01/16/24 04:00 Nasal Cannula 2 01/16/24 02:00 Nasal Cannula 3 01/16/24 01:30 Nasal Cannula 2 01/16/24 01:00 Nasal Cannula 3 01/16/24 00:30 Nasal Cannula 3 01/16/24 00:08 Nasal Cannula 3 01/16/24 00:01 01/16/24 00:00 Room Air 01/15/24 23:30 Room Air 01/15/24 23:15 01/15/24 23:10 01/15/24 23:02 01/15/24 23:01 01/15/24 22:49 Nasal Cannula 01/15/24 22:48 Nasal Cannula 2 01/15/24 22:30 Nasal Cannula 01/15/24 22:10 Nasal Cannula 01/15/24 21:44 Room Air Intake and Output 01/16/24 01/16/24 01/16/24 07:59 15:59 23:59 Intake Total 1113.375 / 1413.375 300 / 1413.375 Output Total 400 / 400 Balance 713.375 / 1013.375 300 / 1013.375 Intake: Intake, Oral Amount 100 / 400 300 / 400 Intake, Total IV Amount 1005.625 / 1005.625 Lactated Ringers 1000ML 1,000 1000 / 1000 ml @ 999 mls/hr IV .Q1H1M ONE Rx#:[id number] Infusion Intake 7.75 / 7.75 Norepinephrine Bitartrate/D5w 8 7.75 / 7.75 mg In 250 ml @ 2 MCG/MIN 3.75 mls/hr IV .Q24H COUNTS INCLUDE 234 BEDS AT THE [facility] Rx#: [id number] Output: Output, Urine Amount 400 / 400 Other: Weight 80.15 kg Patient Weight 01/16/24 23:59 Weight 80.15 kg Laboratory Results - last 24 hr 01/15/24 21:45: WBC 4.2 L, RBC 3.54 L, Hgb 10.2 L, Hct 31.5 L, MCV 89.0, MCH 28.9, MCHC 32.4, RDW 14.2, Plt Count 231, MPV 7.9, Neut % (Auto) 53.2, Lymph % (Auto) 41.3, [place] % (Auto) 4.7, Eos % (Auto) 0.4, Baso % (Auto) 0.4, Neut # (Auto) 2.3, Lymph # (Auto) 1.8, [place] # (Auto) 0.2, Eos # (Auto) 0.0, Baso # (Auto) 0.0, Sodium 137, Potassium 4.6, Chloride 103, Carbon Dioxide 27, Anion Gap 11.6, BUN 22 H, Creatinine 2.00 H, Estimated Creat Clear 39, Estimated GFR 26 L, Est GFR ( Amer) 31 L, Glucose 125 H, Calcium 9.1, Total Bilirubin 0.2, AST 23, ALT 15, Alkaline Phosphatase 113, Troponin I < 0.01, Total Protein 6.8, Albumin 3.8, Globulin 3.0, Albumin/Globulin Ratio 1.3 01/16/24 01:10: Troponin I < 0.01 01/16/24 04:05: Troponin I < 0.01, TSH 0.72 D 01/16/24 10:15: Sodium 138, Potassium 3.7, Chloride 105, Carbon Dioxide 24, Anion Gap 12.7, BUN 19 H, Creatinine 1.10 H D, Estimated Creat Clear 71, Estimated GFR 51 L, Est GFR ( Amer) 62 D, Glucose 165 H D, Calcium 8.9 I & O for Labs for Last 24 Hours: Intake & Output 01/13/24 01/14/24 01/15/24 01/16/24 23:59 23:59 23:59 23:59 Intake Total 8.375 / 5184.646 1635.375 / 1413.375 Output Total 400 / 400 Balance 8.375 / 4868.255 4863.375 / 1013.375 Weight 80.15 kg 80.15 kg Constitutional: Present no acute distress and average body habitus Head: Present atraumatic and normocephalic ENT: Present normal exam Neck: Present normal inspection Respiratory: Present normal respiratory effort; Absent accessory muscle use, rhonchi, wheezes or crackles Cardiac: Present Reg Rate and Rhythm GI: Present soft and normal bowel sounds; Absent distention or tenderness Extremities: Present normal inspection and full ROM Skin: Present intact; Absent erythema Neuro: Present Grossly Intact, alert, awake, oriented x 3 and moves all extremities Assessment and Plan *Assessment and plan (1) Labile hypertension: Status: Acute Category: Medical Code(s): R09.89 - Other specified symptoms and signs involving the circulatory and respiratory systems (2) Acute nontraumatic kidney injury: Status: Acute Category: Medical Code(s): N17.9 - Acute kidney failure, unspecified (3) Accidental overdose: Status: Acute Qualifiers: Encounter type: initial encounter Qualified Code(s): T50.901A - Poisoning by unspecified drugs, medicaments and biological substances, accidental (unintentional), initial encounter Category: Medical Code(s): T50.901A - Poisoning by unspecified drugs, medicaments and biological substances, accidental (unintentional), initial encounter (4) Hypotension: Status: Acute Qualifiers: Hypotension type: unspecified hypotension type Qualified Code(s): I95.9 - Hypotension, unspecified Category: Medical Code(s): I95.9 - Hypotension, unspecified (5) Hypertension: Status: Acute Qualifiers: Hypertension type: unspecified Qualified Code(s): I10 - Essential (primary) hypertension Category: Medical Code(s): I10 - Essential (primary) hypertension (6) History of pituitary tumor: Status: Chronic Category: Medical Code(s): Z87.898 - Personal history of other specified conditions (7) HLD (hyperlipidemia): Status: Chronic Qualifiers: Hyperlipidemia type: unspecified Qualified Code(s): E78.5 - Hyperlipidemia, unspecified Category: Medical Code(s): E78.5 - Hyperlipidemia, unspecified Plan 59-year-old female with a past medical history of lumbar radiculopathy, degenerative disc, pituitary adenoma, HTN, HLD who presents emergency department today with complaints of low blood pressure. She does have a history of hypertension for which she takes blood pressure medicine. reported had taken double doses of metoprolol but not the other one . of note, by chart reviewed patient was seen earlier today at his PCP office, c/o abnormal reading of her BP. on arrival patient persistent hypotensive. labs are unremarkable. EKG normal. patient was started on levophed. Admit to ICU. Did well overnight. Weaned off Levophed. Blood pressures have crept up through the day. Cardiology consulted and assisting with care. Problems addressed as follows: #Accidental overdose #Hypotension/labile hypertension #History of pituitary tumor Patient doing better this morning. Weaned off Levophed Discussed case with cardiology, recommend adjustments to regimen. Will hold irbesartan at this time. Initiate low-dose carvedilol 3.125 mg twice daily. Blood pressure seems to elevate when patient is in pain. Has been on gabapentin and oxycodone for a very long time. Will slowly reintroduce these today to see if this helps with blood pressure. Concern for hypertension due to pain that is then treated causing hypotension. Patient does have a history of pituitary tumor that was incompletely resected. She was admitted in the last 30 days for similar hypotensive and responded to Solu-Cortef. Unclear if these swing of the BP are solely on double dose of metoprolol vs hypotension due to lack of ACTH TSH normal 1.72; 24-hour urine studies evaluating metanephrines and normetanephrine's was normal in August. ACTH, LH, FSH, and cortisol [place] pending CBC, CMP, magnesium ordered for the morning CT angio abdomen/pelvis evaluating renal artery shows no stenosis Chronic pain: Resume oxycodone at reduced dose of 7.5 mg every 6 hours as needed and gabapentin 600 mg 3 times a day. JOSE ENRIQUE: BUN improved at 19, creatinine 1.1. Down from creatinine greater than 2 on admission. Anxiety: Decreased dose of Seroquel, 50 mg tonight resume levofloxacin for previously diagnosed E.coli UTI. DVT PPx subcu heparin Full code Cardiac diet
--- NOTE | 2024-01-16 17:08 | PC.NURSE ---
TECH NOTE; NURSE AND PHYSICIAN NOTIFIED OF BLOOD PRESSURE FOR 1600 VITAL SIGNS Ramon DURAND, SRNA
[2024-01-16] MEDS: GABAPENTIN 600MG TABLET 600 MG PO ×2 (17:27→20:26)
[2024-01-16] MEDS: TIZANIDINE 4 MG 4 EACH PO (17:27)
[2024-01-16] MEDS: OXYCODONE 5MG W/APAP 325MG TABLET 1.5 EACH PO (17:28)
[2024-01-16] MEDS: ONDANSETRON 4MG/2ML VIAL 4 MG IV (17:56)
--- NOTE | 2024-01-16 18:03 | PC.NURSE ---
Emesis times one and zofran given.
--- NOTE | 2024-01-16 18:09 | PC.NURSE ---
. aware of pt's 16:00 BP and new orders given.
[2024-01-16] MEDS: CARVEDILOL 3.125MG TABLET 3.125 MG PO (20:26)
[2024-01-16] MEDS: QUETIAPINE 100MG TABLET 50 MG PO (20:26)
[2024-01-17] VITALS: BP 133/89; PULSE 83; RESP 16; TEMP 36.6; O2SAT 97
[2024-01-17] MEDS: 0.9 % SODIUM CHLORIDE 1000ML 1,000 ML 150 ML IV (01:48)
[2024-01-17 04:00] VITALS: BP 163/97; PULSE 72; RESP 16; TEMP 36.6; O2SAT 98; BMI 29.7
--- NOTE | 2024-01-17 05:42 | PC.NURSE ---
HAS RESTED WELL. NO C/O PAIN VOICED. AMBULATED TO THE BATHROOM WITH SBA.
[2024-01-17 06:47] LABS: Basophils % 0.8 % (0.1-2.0); Eosinophils % 0.3 % (0.1-12.0); Hematocrit 35.9 % (37.0-47.0); Hemoglobin 11.4 g/dL (12.2-16.2); Lymphocytes # 1.7 K/mm3 (0.7-4.5); Lymphocytes % 39.5 % (10-50); Mean Corpuscular HGB Conc 31.8 g/dL (31.8-35.4); Mean Corpuscular Hemoglobin 28.1 pg (27.0-31.2); Mean Corpuscular Volume 88.4 fl (81-99); Mean Platelet Volume 7.6 fl (7.4-10.4); Monocytes # 0.2 K/mm3 (0.1-1.0); Monocytes % 4.9 % (1.7-9.3); Neutrophils # 2.3 K/mm3 (1.8-7.8); Neutrophils % 54.5 % (37.0-80.0); Platelet Count 204 K/mm3 (142-424); Red Blood Count 4.06 M/mm3 (4.20-5.40); Red Cell Distribution Width 14.3 % (11.5-17.5); White Blood Count 4.3 K/mm3 (4.8-10.8)
[2024-01-17 07:09] LABS: Chloride 112 mmol/L (98-107); Sodium 142 mmol/L (136-145)
[2024-01-17 07:12] LABS: Alanine Aminotransferase 16 U/L (12-78); Albumin Level 3.8 g/dl (3.5-5.0); Albumin/Globulin Ratio 1.2 (1.1-1.8); Alkaline Phosphatase 128 U/L (38-126); Aspartate Amino Transferase 31 U/L (14-36); Bilirubin,Total 0.5 mg/dl (0.2-1.3); Blood Urea Nitrogen 11 mg/dl (7-17); Calcium 9.2 mg/dl (8.4-10.2); Carbon Dioxide 24 mmol/L (22.0-30.0); Creatinine Clearance Estimated 84 mL/min (50-200); Estimated Glomerular Filt Rate 57 ml/min (>60); GFR (African American) 69 ML/MIN (>60); Globulin 3.2 g/dL (1.3-3.2); Glucose 111 mg/dl (74-100)
[2024-01-17 08:00] VITALS: BP 114/60; PULSE 65; RESP 17; TEMP 36.4; O2SAT 95
[2024-01-17 08:56] LABS: FSH 36.5 mIU/mL (.); LH 14.2 mIU/mL (.)
[2024-01-17] MEDS: GABAPENTIN 600MG TABLET 600 MG PO ×2 (09:08→12:37)
[2024-01-17] MEDS: CARVEDILOL 6.25MG TABLET 6.25 MG PO (09:08)
[2024-01-17] MEDS: ASPIRIN EC 81MG TABLET 81 MG PO (09:09)
[2024-01-17] MEDS: HEPARIN SODIUM 5,000 UNIT/ML VIAL 5000 UNIT SQ ×2 (09:12→12:41)
[2024-01-17] MEDS: OXYCODONE 10MG W/APAP 325MG TABLET 1 EACH PO (09:24)
--- NOTE | 2024-01-17 10:06 | EXP.CARD.PN ---
Subjective Subjective Date: 01/17/24 Time: 10:06 Principal diagnosis: Labile hypertension Interval history: 59-year-old white female in bed in no acute distress. She does complain of withdrawal symptoms relating to decrease in pain medication related to spondylosis and radiculopathy. CTA of the abdomen showed no evidence of renal artery stenosis. Patient's elevated blood pressure seems to correlate with increase in pain. Exam Data for Last 24 hours Vital signs and Labs for Last 24 Hours: Temp Pulse Resp BP Pulse Ox O2 Del Method O2 Flow Rate 97.6 F 65 17 114/60 95 Room Air 2 01/17/24 08:00 01/17/24 08:00 01/17/24 08:00 01/17/24 08:00 01/17/24 08:00 01/17/24 09:00 01/16/24 04:00 Laboratory Results - last 24 hr 01/16/24 04:05: FSH 36.5, Luteinizing Hormone 14.2, Cortisol 26.7 H 01/16/24 10:15: Sodium 138, Potassium 3.7, Chloride 105, Carbon Dioxide 24, Anion Gap 12.7, BUN 19 H, Creatinine 1.10 H D, Estimated Creat Clear 71, Estimated GFR 51 L, Est GFR ( Amer) 62 D, Glucose 165 H D, Calcium 8.9 01/17/24 06:34: WBC 4.3 L, RBC 4.06 L, Hgb 11.4 L, Hct 35.9 L, MCV 88.4, MCH 28.1, MCHC 31.8, RDW 14.3, Plt Count 204, MPV 7.6, Neut % (Auto) 54.5, Lymph % (Auto) 39.5, [place] % (Auto) 4.9, Eos % (Auto) 0.3, Baso % (Auto) 0.8, Neut # (Auto) 2.3, Lymph # (Auto) 1.7, [place] # (Auto) 0.2, Eos # (Auto) 0.0, Baso # (Auto) 0.0, Sodium 142, Potassium 4.0, Chloride 112 H, Carbon Dioxide 24, Anion Gap 10.0, BUN 11 D, Creatinine 1.00, Estimated Creat Clear 84, Estimated GFR 57 L, Est GFR ( Amer) 69, Glucose 111 H D, Calcium 9.2, Magnesium 2.0, Total Bilirubin 0.5, AST 31 D, ALT 16, Alkaline Phosphatase 128 H, Total Protein 7.0, Albumin 3.8, Globulin 3.2, Albumin/Globulin Ratio 1.2 I & O for Last 24 hours: Intake & Output 01/14/24 01/15/24 01/16/24 01/17/24 11:59 11:59 11:59 11:59 Intake Total 1121.750 / 9228.574 8638 / 2630 Output Total 400 / 400 Balance 721.750 / 971.161 2409 / 2629 Weight 176 lb 11.208 oz 189 lb 3.2 oz Constitutional Constitutional: mild distress *Routine Respiratory Exam Respiratory: Present CTA bilaterally *Routine Cardiovascular Exam Cardiovascular: Present RRR Progress Note: A&P Assessment and plan (1) Accidental overdose: Status: Acute (2) Hypotension: Status: Acute (3) Hypertension: Status: Acute (4) History of pituitary tumor: Status: Chronic (5) HLD (hyperlipidemia): Status: Chronic Assessment and Plan Assessment and Plan for All Diagnoses:: 1. Labile HTN with acute hypotension and confusion -switch metoprolol to coreg for better control of BP since stopping ARB in light of JOSE ENRIQUE -CTA of abdomen negative for MAURICIO -improved with better pain control 2. UTI -defer to Dr. Tidwell 3. History of substance use with Major Depressive disorder 4. JOSE ENRIQUE with recent ARB therapy -discontinue ARB -improving 5. History of incomplete pituitary surgery 6. History of ROSETTE, untreated 7. Flecainide use for unknown arrhythmia -started by wool scourer at [facility] in [place] about 2020 8. Chronic pain related to cervical and lumbar spondylosis with radiculopathy Clinically stable from Cardiology standpoint for discharge. Home med recommendations: coreg 6.25 mg BID Aspirin 81 mg daily Flecainide 50 mg twice daily Discontinue irbesartan and metoprolol Follow-up in our office in 1 to 2 weeks.
[2024-01-17] MEDS: FLECAINIDE 50MG TABLET 50 MG PO (10:21)
[2024-01-17 11:50] VITALS: BP 107/60; PULSE 64; RESP 14; TEMP 36.6; O2SAT 96
[2024-01-17] MEDS: levoFLOXacin 750 MG TABLET PO (12:37)
--- NOTE | 2024-01-17 12:42 | EXP.DC.SUM ---
General Admission date:: 01/15/24 Discharge date: 01/21/24 HPI HPI HPI: This is a 59-year-old female with a past medical history of lumbar radiculopathy, degenerative disc, pituitary adenoma, HTN, HLD who presents emergency department today with complaints of low blood pressure. She does have a history of hypertension for which she takes blood pressure medicine. stated she accidentally took double dose patient stated that she took her motoprolol but not the other one patient is at home ibersartan and metoprolol. States that she felt dizzy and lightheaded . On arrival to the emergency department she was noted to have systolic blood pressure in the 60s with some mild dizziness. Admitted for further monitoring and managment. Hospital Course Hospital Course Hospital Course: 59-year-old female with a past medical history of lumbar radiculopathy, degenerative disc, pituitary adenoma, HTN, HLD who presents emergency department today with complaints of low blood pressure. She does have a history of hypertension for which she takes blood pressure medicine. reported had taken double doses of metoprolol but not the other one . of note, by chart reviewed patient was seen earlier today at his PCP office, c/o abnormal reading of her BP. on arrival patient persistent hypotensive. labs are unremarkable. EKG normal. patient was started on levophed. Admit to ICU. Did well overnight. Weaned off Levophed. Showed gradual improvement in blood pressures. Was treated for UTI. Cardiology consulted and assisted with care. Medication adjustments made. Stable to discharge home. Problems addressed as follows: #Accidental overdose #Hypotension/labile hypertension #History of pituitary tumor Admitted for hypotension and confusion. Adjustments made to medications with holding of her blood pressure meds. Given her fluctuations in blood pressure during admission, and after evaluation, it is felt that her blood pressure is related to her pain. When her pain is controlled, her blood pressure normalizes. Would recommend significant decrease in blood pressure treatment. Cardiology assisted with care. Recommend continuing carvedilol twice daily at low-dose. Consider addressing pain and consistency of home regimen. Workup for pituitary dysfunction was unremarkable with normal hormone levels. TSH normal 1.72; 24-hour urine studies evaluating metanephrines and normetanephrine's was normal in August. CT angio abdomen/pelvis evaluating renal artery shows no stenosis Patient clinically stable for discharge home. Adjustments made to meds, see med rec for full details. Chronic pain: Decreased doses of her pain meds during admission. Resume oxycodone at discharge. Would benefit from reevaluating dose and weaning after follow-up with primary care or prescribing physician. Recommend decreasing gabapentin to 600 mg 3 times a day. JOSE ENRIQUE: Kidney function normalized, BUN 11, creatinine 1.0 on day of discharge. Down from creatinine greater than 2 on admission. Anxiety: Decreased dose of Seroquel to 50 mg nightly Was treated during admission with Levaquin. As she already had a prescription for ciprofloxacin, resumed at discharge however her E. coli UTI returned resistant to Cipro. Called in Levaquin course to complete antibiotics after discharge. Total time spent on discharge 35 minutes in counseling, documentation, chart review, and direct care with patient. Exam Data for Last 24 hours Vital signs and Labs for Last 24 Hours: Temp Pulse Resp BP Pulse Ox O2 Del Method O2 Flow Rate 97.9 F 64 14 107/60 L 96 Room Air 2 01/17/24 11:50 01/17/24 11:50 01/17/24 11:50 01/17/24 11:50 01/17/24 11:50 01/17/24 11:50 01/16/24 04:00 Laboratory Results - last 24 hr 01/16/24 04:05: FSH 36.5, Luteinizing Hormone 14.2, Cortisol 26.7 H 01/17/24 06:34: WBC 4.3 L, RBC 4.06 L, Hgb 11.4 L, Hct 35.9 L, MCV 88.4, MCH 28.1, MCHC 31.8, RDW 14.3, Plt Count 204, MPV 7.6, Neut % (Auto) 54.5, Lymph % (Auto) 39.5, [place] % (Auto) 4.9, Eos % (Auto) 0.3, Baso % (Auto) 0.8, Neut # (Auto) 2.3, Lymph # (Auto) 1.7, [place] # (Auto) 0.2, Eos # (Auto) 0.0, Baso # (Auto) 0.0, Sodium 142, Potassium 4.0, Chloride 112 H, Carbon Dioxide 24, Anion Gap 10.0, BUN 11 D, Creatinine 1.00, Estimated Creat Clear 84, Estimated GFR 57 L, Est GFR ( Amer) 69, Glucose 111 H D, Calcium 9.2, Magnesium 2.0, Total Bilirubin 0.5, AST 31 D, ALT 16, Alkaline Phosphatase 128 H, Total Protein 7.0, Albumin 3.8, Globulin 3.2, Albumin/Globulin Ratio 1.2 I & O for Last 24 hours: Intake & Output 01/14/24 01/15/24 01/16/24 01/17/24 23:59 23:59 23:59 23:59 Intake Total 8.375 / 8238.582 3630.375 / 3163.375 2059 Output Total 400 / 400 Balance 8.375 / 8355.571 9421.375 / 2763.375 2058 Weight 80.15 kg 80.15 kg 85.82 kg Constitutional Constitutional: no acute distress, average body habitus and cooperative *Routine HEENT Exam Head: Present normocephalic Eye: Present EOMI and PERRL ENT: Present mucous membranes moist *Routine Neck Exam Neck: Present supple; Absent lymphadenopathy *Routine Respiratory Exam Respiratory: Present CTA bilaterally; Absent rhonchi, wheezes or crackles *Routine Cardiovascular Exam Cardiovascular: Present RRR *Routine Abdominal Exam Abdominal: Present soft and normoactive bowel sounds; Absent tenderness *Routine Rectal Exam Patient deferred: visual exam *Routine Exam Patient deferred: external exam *Routine Extremities Exam Extremities: Absent cyanosis, clubbing or edema *Routine Skin Exam Skin: Present warm; Absent rash *Routine Neurological Exam Neurological: Present alert, oriented X3 and moving all extremities; Absent altered mental status Results Data Completed and Pending Labs on day of discharge: Labs from last 24 hours 01/17/24 01/16/24 06:34 04:05 WBC 4.3 L RBC 4.06 L Hgb 11.4 L Hct 35.9 L MCV 88.4 MCH 28.1 MCHC 31.8 RDW 14.3 Plt Count 204 MPV 7.6 Neut % (Auto) 54.5 Lymph % (Auto) 39.5 [place] % (Auto) 4.9 Eos % (Auto) 0.3 Baso % (Auto) 0.8 Neut # (Auto) 2.3 Lymph # (Auto) 1.7 [place] # (Auto) 0.2 Eos # (Auto) 0.0 Baso # (Auto) 0.0 Sodium 142 Potassium 4.0 Chloride 112 H Carbon Dioxide 24 Anion Gap 10.0 BUN 11 D Creatinine 1.00 Estimated Creat Clear 84 Estimated GFR 57 L Est GFR ( Amer) 69 Glucose 111 H D Calcium 9.2 Magnesium 2.0 Total Bilirubin 0.5 AST 31 D ALT 16 Alkaline Phosphatase 128 H Total Protein 7.0 Albumin 3.8 Globulin 3.2 Albumin/Globulin Ratio 1.2 FSH 36.5 Luteinizing Hormone 14.2 Cortisol 26.7 H DS: Diagnosis Discharge Diagnosis (1) Labile hypertension: Status: Acute Code(s): R09.89 - Other specified symptoms and signs involving the circulatory and respiratory systems (2) Acute hypotension: Status: Resolved Code(s): I95.9 - Hypotension, unspecified (3) UTI (urinary tract infection): Status: Acute Code(s): N39.0 - Urinary tract infection, site not specified Qualifiers: Hematuria presence: without hematuria Urinary tract infection type: site unspecified Qualified Code(s): N39.0 - Urinary tract infection, site not specified (4) ROSETTE (obstructive sleep apnea): Status: Chronic Code(s): G47.33 - Obstructive sleep apnea (adult) (pediatric) (5) Acute kidney injury (nontraumatic): Status: Resolved Code(s): N17.9 - Acute kidney failure, unspecified Meds Home Medications and Allergies Home Medications Medication Instructions Recorded Confirmed Type aspirin 81 mg tablet,delayed 81 mg PO DAILY 09/26/22 01/16/24 History release (Adult Low Dose Aspirin) omeprazole 40 mg capsule,delayed 40 mg PO DAILY #90 caps 07/18/23 01/16/24 Rx release flecainide 50 mg tablet 50 mg PO BID 01/11/24 01/16/24 History gabapentin 800 mg tablet 800 mg PO TID 30 days #90 tabs 01/15/24 01/16/24 Rx oxycodone-acetaminophen 10 mg-325 1 tab PO Q6HP PRN pain #120 tabs 01/15/24 01/16/24 Rx mg tablet tizanidine 4 mg capsule 8 mg PO TIDP PRN muscle spasticity 01/16/24 01/16/24 History carvedilol 6.25 mg tablet 6.25 mg PO BID 30 days #60 tabs 01/17/24 Rx ciprofloxacin HCl 250 mg tablet 250 mg PO BID 3 days #6 tabs 01/17/24 01/16/24 Rx quetiapine 100 mg tablet 50 mg (1/2 x 100 mg) PO HS 30 days 01/17/24 01/16/24 Rx #30 tabs levofloxacin 750 mg tablet 750 mg PO DAILY 5 days #5 tabs 01/18/24 Rx New Prescriptions to Start Prescriptions: carvedilol Jarad Tidwell levofloxacin Jarad Tidwell Allergies Allergy/AdvReac Type Severity Reaction Status Date / Time codeine Allergy Unknown Unknown Verified 01/16/24 00:52 allergy reaction morphine Allergy Unknown Unknown Verified 01/16/24 00:52 allergy reaction naloxone Allergy Unknown Unknown Verified 01/15/24 13:07 allergy reaction paroxetine [From Paxil] Allergy Unknown Unknown Verified 01/16/24 00:52 allergy reaction Discharge Plan Disposition Patient Disposition: Home, Self-Care Condition: Fair Discharge Order Discharge Orders: Discharge Order (Routine); Ordered 01/17/24 Ordered By: Jarad Tidwell Follow up Plan Follow up with: Harjinder Lora DO [Primary Care Provider] - 01/24/24 10:00 am Armin Vidal MD [Staff Physician] - 01/30/24 2:45 pm Prescriptions/Medication Reconciliation: New carvedilol 6.25 mg Tablet 6.25 mg PO BID 30 Days Qty: 60 0RF levofloxacin 750 mg tablet 750 mg PO DAILY 5 Days Qty: 5 0RF Continued aspirin [Adult Low Dose Aspirin] 81 mg tablet,delayed release (DR/EC) 81 mg PO DAILY omeprazole 40 mg capsule,delayed release(DR/EC) 40 mg PO DAILY Qty: 90 3RF gabapentin 800 mg tablet 800 mg PO TID 30 Days Qty: 90 1RF oxycodone-acetaminophen 10-325 mg tablet 1 tab PO Q6HP PRN (Reason: pain) Qty: 120 0RF flecainide 50 mg tablet 50 mg PO BID Rx Instructions: TAKE ONE TABLET BY MOUTH TWICE DAILY tizanidine 4 mg capsule 8 mg PO TIDP PRN (Reason: muscle spasticity) Rx Instructions: TID dosing take 8mg - 8mg - 12mg PO ciprofloxacin HCl 250 mg tablet 250 mg PO BID 3 Days Qty: 6 0RF Changed quetiapine 100 mg tablet 50 mg PO HS 30 Days Qty: 30 3RF Discontinued irbesartan 75 mg tablet 75 mg PO HS Qty: 30 2RF Hold Instructions: Resume on 01/13/24. metoprolol succinate 50 mg tablet extended release 24 hr 25 mg PO BID Problem Reconciliation Problems Reviewed?: Yes Patient Discharge Instructions ACTIVITY: Continue current activity DIET: continue same diet Patient Instructions: DI for Urinary Tract Infection (UTI), DI for Drug Overdose in Adults, DI for Acute Kidney Injury Providers Primary Care Provider: Harjinder Lora Admit Provider: Justin Hunt Attending Provider: Justin Hunt
[2024-01-18 14:27] LABS: Adrenocorticotropic Hormone 47.5 pg/mL (7.2-63.3)
--- NOTE | 2024-01-18 15:48 | CARE MANAGER ---
Addendum entered by Luz Porras RN 01/19/24 15:22: Spoke with patient at request of Dr. Tidwell. Antibiotic changed and called into pharmacy due to culture results. Patient states she thinks she is allergic to carvediol. She is having hallucinations and yelling out at night. Spoke with Dr. Tidwell who states that it could be the UTI or other antibiotic and that switching to the Levaquin may help. Patient reports that her blood pressure is 70s/40s prior to taking medication and that it has been that more than once. Dr. Tidwell states to hold carvedilol until she follows up with cardiology. Attempted to contact cardiology but could not get anyone to answer. Provided phone number to patient and she is going to try to call to get earlier appointment. Patient verbalized understanding.JORI Nunez Original Note: Contacted patient related to hospital discharge. She states she is aware of new medication, medication changes, and discontinued medications. She is aware of follow up appointments. JORI Nunez
== END 2024-01-17 13:36 | disposition home or self-care (01) | DRG 918 ==
LOC: ER 22:31 → 2ND 22:40
PROVIDERS: Internal Medicine Adolescent Medicine; Nurse Practitioner Family; Admitting Provider Internal Medicine; Emergency Provider Emergency Medicine; PCP Internal Medicine; Visit Provider Internal Medicine
DX: T46.5X1A Poisoning by other antihypertensive drugs, accidental (unintentional), initial encounter (principal); N17.9 Acute kidney failure, unspecified; N39.0 Urinary tract infection, site not specified; I95.9 Hypotension, unspecified; E78.5 Hyperlipidemia, unspecified; I10 Essential (primary) hypertension; G47.33 Obstructive sleep apnea (adult) (pediatric); G89.29 Other chronic pain; M47.896 Other spondylosis, lumbar region; M54.16 Radiculopathy, lumbar region
CPT/HCPCS: 36415; 74174; 80048; 80053; 82024; 82043; 82533; 82570; 83001; 83002; 83735; 84443; 84484; 85025; 87086; 87088; 87186; 93005; 99291; J1644; J2405; J7120; Q9967

== ENCOUNTER 2024-01-31 09:27 | Outpatient (CLI) | payer MEDICARE, MEDICAID, SELFPAY | END 2024-01-31 23:59 | disposition home or self-care (01) | LOC: LAB.DROPOF 02-01 09:28 | PROVIDERS: PCP Internal Medicine; Visit Provider Internal Medicine | DX: N39.0 Urinary tract infection, site not specified (principal) | CPT/HCPCS: 87086 ==

== ENCOUNTER 2024-02-05 13:03 | Outpatient (CLI) | payer MEDICARE, MEDICAID, SELFPAY | END 2024-02-05 23:59 | disposition home or self-care (01) | LOC: RT 13:05 | PROVIDERS: PCP Internal Medicine; Visit Provider Internal Medicine | DX: R00.2 Palpitations (principal); I47.10 Supraventricular tachycardia, unspecified | CPT/HCPCS: 93270 ==

== ENCOUNTER 2024-02-25 11:07 | Emergency (ER) | payer MEDICARE, MEDICAID, SELFPAY ==
[2024-02-25 11:09] VITALS: BP 137/83; PULSE 71; RESP 16; TEMP 36.6; O2SAT 99; BMI 27.3
--- NOTE | 2024-02-25 11:40 | PC.NURSE ---
DR HUNT AT BEDSIDE
[2024-02-25] MEDS: TET/DIPHTH/PERT-ADULT 0.5ML SYRINGE 0.5 ML IM (11:59)
--- NOTE | 2024-02-25 12:00 | ED_ITS ---
Discharge Plan Disposition Patient Disposition: Home, Self-Care Prescriptions Prescriptions: No Action gabapentin 800 mg tablet 800 mg PO TID 30 Days Qty: 90 1RF tizanidine 4 mg capsule 8 mg PO TIDP PRN (Reason: muscle spasticity) Qty: 90 3RF Rx Instructions: TID dosing take 8mg - 8mg - 12mg PO aspirin [Adult Low Dose Aspirin] 81 mg tablet,delayed release (DR/EC) 81 mg PO DAILY omeprazole 40 mg capsule,delayed release(DR/EC) 40 mg PO DAILY Qty: 90 3RF flecainide 50 mg tablet 50 mg PO BID PRN (Reason: HR >150) Qty: 30 0RF Rx Instructions: TAKE ONE TABLET BY MOUTH TWICE DAILY quetiapine 100 mg tablet 100 mg PO HS 30 Days Qty: 30 2RF propranolol 20 mg tablet 40 mg PO BID Qty: 60 2RF oxycodone-acetaminophen 10-325 mg tablet 1 tab PO Q6HP PRN (Reason: pain) Qty: 120 0RF Referrals Follow up/Referrals: Harjinder Lora DO [Primary Care Provider] - See instructions Activity Restrictions/Add. Instructions Additional Instructions/Restrictions: Please return with any spreading redness or pus coming from the wound and have your sutures removed in 7 to 10 days. Clinical Impressions Clinical Impression: Hand laceration Instructions Patient Instructions: DI for Laceration Repair Print Language Print Language: [place] Discharge ED Provider: Lazara Kelsey General Adult HPI General Chief complaint: Wound/Laceration Stated complaint: ao 02/24 lac to left hand Time Seen by Provider: 02/25/24 11:42 Mode of Arrival: Ambulatory Source of Information: Patient Limitations: No Limitations Description of Symptoms (Recalled from ER Triage Doc. by RN): Patient reports trying to cut frozen sausage when the knife slipped and cut her left hand. History of Present Illness HPI narrative: 59-year-old female presented with laceration to left volar aspect of the hand. She accidentally cut her self with a knife while preparing food. Tetanus unknown. Related Data Home Medications ?Medication ?Instructions ?Recorded ?Confirmed aspirin 81 mg tablet,delayed 81 mg PO DAILY 09/26/22 01/30/24 release (Adult Low Dose Aspirin) Previous Rx's ?Medication ?Instructions ?Recorded omeprazole 40 mg capsule,delayed 40 mg PO DAILY #90 caps 07/18/23 release quetiapine 100 mg tablet 100 mg PO HS 30 days #30 tabs 01/25/24 flecainide 50 mg tablet 50 mg PO BID PRN HR >150 #30 tabs 01/30/24 gabapentin 800 mg tablet 800 mg PO TID 30 days #90 tabs 01/31/24 tizanidine 4 mg capsule 8 mg (2 x 4 mg) PO TIDP PRN muscle 01/31/24 spasticity #90 caps propranolol 20 mg tablet 40 mg (2 x 20 mg) PO BID #60 tabs 02/08/24 oxycodone-acetaminophen 10 mg-325 1 tab PO Q6HP PRN pain #120 tabs 02/09/24 mg tablet Allergies Allergy/AdvReac Type Severity Reaction Status Date / Time codeine Allergy Unknown Unknown Verified 01/30/24 15:54 allergy reaction morphine Allergy Unknown Unknown Verified 01/30/24 15:54 allergy reaction naloxone Allergy Unknown Unknown Verified 01/30/24 15:54 allergy reaction paroxetine [From Paxil] Allergy Unknown Unknown Verified 01/30/24 15:54 allergy reaction carvedilol [From Coreg] AdvReac Mild hallucinati Verified 01/30/24 15:54 ons ARB's Allergy Mild JOSE ENRIQUE Uncoded 01/30/24 15:31 PFSH PFS Disclaimer: The information contained in this section may have been updated after the patient was seen, as this information can be updated by other users. Medical History Hallucinations SVT (supraventricular tachycardia) Chronic prescription benzodiazepine use TIA (transient ischemic attack) Will follow. Brain tumor Brain tumor (benign) This is in the old history we will just follow for now. Abnormal renal function Bleeding from right ear Syncope Syncope ROSETTE (obstructive sleep apnea) Fracture of left patella Surgical History History of brain surgery History of hand surgery H/O: hysterectomy History of back surgery Family History Other Anemia Asthma Cancer Coronary artery disease Heart attack Hypertension Thyroid disorder Social History Smoking Status: Unknown if ever smoked second hand exposure: No alcohol intake: never substance use type: former substance user current occupational status: other Travel in the last 8 weeks: None household members: none housing: other current occupational exposures/hazards: No caffeine: No ROS Obtained: Yes All systems reviewed & no additional complaints except as documented Physical Exam General General appearance: alert Respiratory Respiratory exam: Present normal lung sounds bilaterally Cardiovascular Cardiovascular exam: Present regular rate Extremities Exam Extremities exam: Present other (2 cm laceration on the volar aspect of the left hand normal flexion and FDS and FDP of the first digit which is where the loca tion of the injury is otherwise neurovascularly) Neurological Exam Neurological exam: Present alert and oriented X3 Medical Decision Making [place] Inquiry Pt receiving controlled substance: No Vital Signs: 02/25/24 11:09 Temperature 97.9 F Temperature Source Oral Pulse Rate [Radial] 71 Respiratory Rate 16 Blood Pressure [Right Arm] 137/83 Blood Pressure Mean [Right Arm] 101 Blood Pressure Source [Right Arm] Automatic Cuff Blood Pressure Position [Right Arm] Sitting 02 Sat by Pulse Oximetry 99 Oxygen Delivery Method Room Air Orders (Tests/Meds): ED MEDICATIONS Discontinued Medications Generic Name Dose Route Start Last Admin Trade Name Freq PRN Reason Stop Dose Admin Tetanus/Reduced Diphtheria/Acell Pertussis 0.5 ml 02/25/24 11:44 Tet/Diphth/Pert-Adult 0.5ml Syringe IM 02/25/24 11:45 .ONCE ONE Medical Decision Narrative: 59-year-old superficial laceration to the hand normal neurovascular and tendon exam wound was repaired please see procedure note tetanus updated return precautions emphasized she was discharged in stable condition. Procedures Laceration Laceration 1: Site: hand Side (If applicable): left Size (cm): 2 Description: linear Depth: simple, single layer Local Anesthetic: lidocaine 1% and with epi Amount of anesthesia used (mL): 5 Pre-repair: wound explored, irrigated extensively and deep structures intact Skin layer closed with: nylon Size (cm): 4-0 Number of sutures: 3 Technique: simple, interrupted Critical Care Critical Care Time Critical Care Time: No
[2024-02-25 12:04] VITALS: BP 140/76; PULSE 78; RESP 18; TEMP 36.7; O2SAT 97
== END 2024-02-25 12:09 | disposition home or self-care (01) ==
PROVIDERS: Emergency Provider Student in an Organized Health Care Education/Training Program; PCP Internal Medicine
DX: S61.412A Laceration without foreign body of left hand, initial encounter (principal); Z23 Encounter for immunization; W26.0XXA Contact with knife, initial encounter
CPT/HCPCS: 12002; 90471; 90715; 99283

== ENCOUNTER 2024-03-06 10:54 | Outpatient (CLI) | payer MEDICARE, MEDICAID, SELFPAY ==
[2024-03-06 18:59] LABS: Microalbumin/Creatinine Ratio 25.1
[2024-03-06 19:00] LABS: Creatinine,Urine Random 193 mg/dL (Not Estab.)
== END 2024-03-06 23:59 | disposition home or self-care (01) ==
LOC: LAB.DROPOF 03-07 10:54
PROVIDERS: PCP Internal Medicine; Visit Provider Internal Medicine
DX: N18.31 Chronic kidney disease, stage 3a (principal)
CPT/HCPCS: 82043; 82570

== ENCOUNTER 2024-03-11 09:19 | Emergency (ER) | payer MEDICARE, MEDICAID, SELFPAY ==
[2024-03-11] VITALS (10 sets, daily range): BP systolic 92–156; BP diastolic 67–98; PULSE 58–79; RESP 19; TEMP 36.7; O2SAT 93–98; BMI 27.2
--- NOTE | 2024-03-11 | CA_ITS ---
FINAL REPORT TECHNIQUE: Color Doppler, duplex Doppler and compression sonography of the left lower extremity deep venous systems was performed. CLINICAL HISTORY: PAIN IN LEFT LEG KNEE TO ANKLE COMPARISON: None FINDINGS: There is no evidence of deep venous thrombosis in the left lower extremity from the level of the groin to the calf. The veins are patent and compressible. IMPRESSION: No evidence of deep venous thrombosis left lower extremity. Reviewed, Interpreted and Dictated by Emanuel Ignacio III, MD Transcribed by Livia Pryor Authenticated and [facility]
--- NOTE | 2024-03-11 10:38 | ED_ITS ---
Discharge Plan Disposition Patient Disposition: Home, Self-Care Prescriptions Prescriptions: No Action tizanidine 4 mg capsule 8 mg PO TIDP PRN (Reason: muscle spasticity) Qty: 90 3RF Rx Instructions: TID dosing take 8mg - 8mg - 12mg PO aspirin [Adult Low Dose Aspirin] 81 mg tablet,delayed release (DR/EC) 81 mg PO DAILY omeprazole 40 mg capsule,delayed release(DR/EC) 40 mg PO DAILY Qty: 90 3RF propranolol 40 mg tablet 40 mg PO BID Qty: 180 3RF oxycodone 10 mg tablet 10 mg PO QID PRN (Reason: pain) Qty: 120 0RF gabapentin 800 mg tablet 800 mg PO TID 30 Days Qty: 90 1RF levofloxacin 750 mg tablet 750 mg PO DAILY 7 Days Qty: 7 0RF pramipexole 0.25 mg tablet 0.25 mg PO HS Qty: 30 2RF quetiapine 100 mg tablet 100 mg PO HS 30 Days Qty: 30 2RF flecainide 50 mg tablet See Rx Instructions .ROUTE .COMPLEX Qty: 60 2RF Dose Instruction: TAKE ONE TABLET BY MOUTH TWICE DAILY FOR heart health Rx Instructions: TAKE ONE TABLET BY MOUTH TWICE DAILY FOR heart health ondansetron 8 mg tablet,disintegrating 8 mg PO Q8H PRN (Reason: nausea and vomiting) Qty: 30 2RF Referrals Follow up/Referrals: Harjinder Lora DO [Primary Care Provider] - See instructions Activity Restrictions/Add. Instructions Additional Instructions/Restrictions: Take 600 mg of ibuprofen and 1 g of Tylenol every 6 hours for pain. Keep Georgi bandage compressed as shown in the emergency department. Return to the emergency department for any new or worsening symptoms. Clinical Impressions Clinical Impression: Prather cyst, Osteoarthritis Print Language Print Language: [place] Discharge ED Provider: Shasha Herrera General Adult HPI General Chief complaint: PAIN Stated complaint: left knee and ankle pain Time Seen by Provider: 03/11/24 09:22 Mode of Arrival: Ambulatory Source of Information: Patient Limitations: No Limitations Description of Symptoms (Recalled from ER Triage Doc. by RN): pt presents to ED with c/o left knee and ankle pain when walking. pt reports symptoms began yesterday. pain worse with walking History of Present Illness HPI narrative: Patient is a 59-year-old with past medical history of osteoarthritis presents to the emergency department with left knee pain. The pain started yesterday when she took a step and noted acute pain of left knee with also swelling pain radiating from her knee down to her ankle. The pain is most severe on the posterior aspect of the knee no edema noted no other trauma noted worse with moving. No fevers chills nausea vomiting or SOA Related Data Home Medications ?Medication ?Instructions ?Recorded ?Confirmed aspirin 81 mg tablet,delayed 81 mg PO DAILY 09/26/22 03/06/24 release (Adult Low Dose Aspirin) Previous Rx's ?Medication ?Instructions ?Recorded omeprazole 40 mg capsule,delayed 40 mg PO DAILY #90 caps 07/18/23 release quetiapine 100 mg tablet 100 mg PO HS 30 days #30 tabs 01/25/24 tizanidine 4 mg capsule 8 mg (2 x 4 mg) PO TIDP PRN muscle 01/31/24 spasticity #90 caps propranolol 40 mg tablet 40 mg PO BID #180 tabs 02/27/24 gabapentin 800 mg tablet 800 mg PO TID 30 days #90 tabs 03/06/24 levofloxacin 750 mg tablet 750 mg PO DAILY 7 days #7 tabs 03/06/24 oxycodone 10 mg tablet 10 mg PO QID PRN pain #120 tabs 03/06/24 pramipexole 0.25 mg tablet 0.25 mg PO HS #30 tabs 03/06/24 flecainide 50 mg tablet See Rx Instructions .Route 03/07/24 .COMPLEX #60 tabs ondansetron 8 mg disintegrating 8 mg PO Q8H PRN nausea and 03/07/24 tablet vomiting #30 tabs Allergies Allergy/AdvReac Type Severity Reaction Status Date / Time codeine Allergy Unknown Unknown Verified 03/06/24 10:41 allergy reaction morphine Allergy Unknown Unknown Verified 03/06/24 10:41 allergy reaction naloxone Allergy Unknown Unknown Verified 03/06/24 10:41 allergy reaction paroxetine [From Paxil] Allergy Unknown Unknown Verified 03/06/24 10:41 allergy reaction losartan AdvReac Intermediate JOSE ENRIQUE Verified 03/11/24 11:15 carvedilol [From Coreg] AdvReac Mild hallucinati Verified 03/06/24 10:41 ons candesartan AdvReac JOSE ENRIQUE Verified 03/11/24 11:15 irbesartan AdvReac JOSE ENRIQUE Verified 03/11/24 11:15 PFSH PFSH Disclaimer: The information contained in this section may have been updated after the patient was seen, as this information can be updated by other users. Medical History Hallucinations SVT (supraventricular tachycardia) Chronic prescription benzodiazepine use TIA (transient ischemic attack) Will follow. Brain tumor Brain tumor (benign) This is in the old history we will just follow for now. Abnormal renal function Bleeding from right ear Syncope Syncope ROSETTE (obstructive sleep apnea) Fracture of left patella Surgical History History of brain surgery History of hand surgery H/O: hysterectomy has ovaries History of back surgery Family History Other Anemia Asthma Cancer Coronary artery disease Heart attack Hypertension Thyroid disorder Social History Smoking Status: Never smoker second hand exposure: No alcohol intake: never substance use type: former substance user current occupational status: other Travel in the last 8 weeks: None household members: none housing: other current occupational exposures/hazards: No caffeine: No ROS Obtained: Yes All systems reviewed & no additional complaints except as documented Physical Exam General General appearance: alert Head Head exam: atraumatic and normal inspection Chest Chest inspection: Present normal inspection and symmetric chest wall rise Respiratory Respiratory exam: Present normal lung sounds bilaterally Cardiovascular Cardiovascular exam: Present regular rate and normal rhythm Abdominal Exam Abdominal exam: Present soft; Absent tenderness Extremities Exam Extremities exam: Present other (Tenderness to palpation posterior aspect of left popliteal fossa, no swelling to the left lower extremity no joint effusion within the left knee full range of motion no tenderness to palpation of the left knee no erythema of the left knee) Neurological Exam Neurological exam: Present alert and oriented X3 Skin Skin exam: Present warm and dry Medical Decision Making [place] Inquiry Pt receiving controlled substance: No Vital Signs: 03/11/24 09:20 03/11/24 09:25 03/11/24 09:30 Temperature 98.1 F Temperature Source Oral Pulse Rate 69 65 Pulse Rate [Left Radial] 69 Respiratory Rate 19 Blood Pressure 156/98 H 131/90 Blood Pressure [Right Arm] 156/98 H Blood Pressure Mean Blood Pressure Mean [Right Arm] 117 02 Sat by Pulse Oximetry 97 97 98 Oxygen Delivery Method Room Air Room Air Room Air 03/11/24 09:40 03/11/24 09:50 03/11/24 10:00 Temperature Temperature Source Pulse Rate 64 64 64 Pulse Rate [Left Radial] Respiratory Rate Blood Pressure 123/83 121/81 130/83 Blood Pressure [Right Arm] Blood Pressure Mean Blood Pressure Mean [Right Arm] 02 Sat by Pulse Oximetry 94 L 93 L 94 L Oxygen Delivery Method Room Air Room Air Room Air 03/11/24 10:10 03/11/24 11:12 03/11/24 12:54 Temperature Temperature Source Pulse Rate 64 63 58 L Pulse Rate [Left Radial] Respiratory Rate Blood Pressure 134/75 105/90 L 92/67 L Blood Pressure [Right Arm] Blood Pressure Mean 92 Blood Pressure Mean [Right Arm] 02 Sat by Pulse Oximetry 93 L 96 95 Oxygen Delivery Method Room Air Room Air Room Air 03/11/24 13:18 Temperature 98.0 F Temperature Source Pulse Rate 79 Pulse Rate [Left Radial] Respiratory Rate 19 Blood Pressure 125/71 Blood Pressure [Right Arm] Blood Pressure Mean Blood Pressure Mean [Right Arm] 02 Sat by Pulse Oximetry Oxygen Delivery Method Lab Data Lab Results 03/11/24 11:24: WBC 3.1 L, RBC 4.39, Hgb 12.6, Hct 39.9, MCV 90.9, MCH 28.6, M CHC 31.5 L, RDW 14.7, Plt Count 302, MPV 8.0, Neut % (Auto) 38.1, Lymph % (Auto) 54.3 H, [place] % (Auto) 6.7, Eos % (Auto) 0.4, Baso % (Auto) 0.6, Neut # (Auto) 1.2 L, Lymph # (Auto) 1.7, [place] # (Auto) 0.2, Eos # (Auto) 0.0, Baso # (Auto) 0.0, Total Counted 100, Neutrophils % (Manual) 43, Lymphocytes % (Manual) 53 H, Monocytes % (Manual) 4, Platelet Estimate Normal, RBC Morphology Normal, ESR 49 H 03/11/24 12:02: Sodium 137, Potassium 4.1, Chloride 107, Carbon Dioxide 28, Anion Gap 6.1, BUN 20 H, Creatinine 1.20 H, Estimated Creat Clear 64, Estimated GFR 46 L, Est GFR ( Amer) 56 L, Glucose 106 H, Calcium 8.8, Magnesium 2.0, Total Bilirubin 0.5, AST 21, ALT 15, Alkaline Phosphatase 116, C-Reactive Protein 1.3, Total Protein 7.0, Albumin 3.9, Globulin 3.1, Albumin/Globulin Ratio 1.3 03/11/24 11:24 03/11/24 12:02 Orders (Tests/Meds): ED MEDICATIONS Discontinued Medications Generic Name Dose Route Start Last Admin Trade Name Miguelq PRN Reason Stop Dose Admin Ketorolac Tromethamine 15 mg 03/11/24 11:07 03/11/24 11:32 Ketorolac 30mg/Ml Vial IV 03/11/24 11:08 15 mg ONCE ONE Administration ORDERS Category Date Time Status Knee XR left 3 views [XR knee LT 3V] Stat Exams 03/11/24 11:00 Completed CBC w/Auto Diff [Complete Blood Count Auto Diff] Stat Lab 03/11/24 11:24 Completed CMP [Comprehensive Metabolic Panel] Stat Lab 03/11/24 12:02 Completed CRP [C-Reactive Protein] Stat Lab 03/11/24 12:02 Completed ESR [Erythrocyte Sedimentation Rate] Stat Lab 03/11/24 11:24 Completed MAG [Magnesium] Stat Lab 03/11/24 12:02 Completed CA venous doppler LE LT Routine Y 03/11/24 Completed Medical Decision Narrative: Patient is a 59-year-old past medical history significant for osteoarthritis presents to the emergency department with left knee pain. Differential diagnosis includes septic arthritis inflammatory arthritis including osteoarthritis DVT Prather's cyst. Patient arrived hemodynamically stable saturating appropriately on room air afebrile no acute distress. Workup included CBC CMP ESR CRP with mild elevation ESR normal CRP white count of 3.1 creatinine of 1.2 appears to be baseline. Left knee x-ray significant for osteoarthritic changes without acute fracture personally interpreted. DVT ultrasound suggestive of Prather's cyst in the left popliteal fossa. On repeat evaluation patient symptoms are stable. Patient amendable to discharge with multimodal pain control and compression of the left knee with follow-up with primary care provider. Critical Care Critical Care Time Critical Care Time: No
--- NOTE | 2024-03-11 10:58 | PC.NURSE ---
Dr. Herrera at [facility] speaking with pt
--- NOTE | 2024-03-11 11:00 | XR_ITS ---
FINAL REPORT CLINICAL HISTORY: pain COMPARISON: 08/25/2020 FINDINGS: Three views of the left knee reveal no evidence of acute fracture or dislocation. There is a large calcification at the inferior patella now fused to the patella. The bony alignment is normal. There is mild degenerative change. There is no evidence of joint effusion. No localized soft tissue abnormality is seen. IMPRESSION: Degenerative changes without acute abnormality identified. Reviewed, Interpreted and Dictated by Emanuel Ignacio III, MD Transcribed by Bernadette Roblero Authenticated and [facility]
--- NOTE | 2024-03-11 11:26 | PC.NURSE ---
vascular at BS
[2024-03-11] MEDS: KETOROLAC 30MG/ML VIAL 15 MG IV (11:32)
[2024-03-11 11:36] LABS: Basophils % 0.6 % (0.1-2.0); Eosinophils % 0.4 % (0.1-12.0); Hematocrit 39.9 % (37.0-47.0); Hemoglobin 12.6 g/dL (12.2-16.2); Lymphocytes # 1.7 K/mm3 (0.7-4.5); Lymphocytes % 54.3 % (10-50); Mean Corpuscular HGB Conc 31.5 g/dL (31.8-35.4); Mean Corpuscular Hemoglobin 28.6 pg (27.0-31.2); Mean Corpuscular Volume 90.9 fl (81-99); Monocytes # 0.2 K/mm3 (0.1-1.0); Monocytes % 6.7 % (1.7-9.3); Neutrophils # 1.2 K/mm3 (1.8-7.8); Neutrophils % 38.1 % (37.0-80.0); Platelet Count 302 K/mm3 (142-424); Red Blood Count 4.39 M/mm3 (4.20-5.40); Red Cell Distribution Width 14.7 % (11.5-17.5); White Blood Count 3.1 K/mm3 (4.8-10.8)
[2024-03-11 11:41] LABS: MANUAL DIFFERENTIAL MANUAL DIFFERENTIAL (MANUAL DIFF)
[2024-03-11 12:13] LABS: Albumin Level 3.9 g/dl (3.5-5.0); Chloride 107 mmol/L (98-107); Potassium 4.1 mmoL/L (3.5-5.1); Sodium 137 mmol/L (136-145)
[2024-03-11 12:15] LABS: Erythrocyte Sedimentation Rate 49 mm/hr (0-30)
[2024-03-11 12:15] LABS: Alanine Aminotransferase 15 U/L (12-78); Alkaline Phosphatase 116 U/L (38-126); Anion Gap 6.1 mEq/L (5-15); Aspartate Amino Transferase 21 U/L (14-36); Bilirubin,Total 0.5 mg/dl (0.2-1.3); Blood Urea Nitrogen 20 mg/dl (7-17); Carbon Dioxide 28 mmol/L (22.0-30.0); Creatinine Clearance Estimated 64 mL/min (50-200); Estimated Glomerular Filt Rate 46 ml/min (>60); GFR (African American) 56 ML/MIN (>60)
[2024-03-11 12:16] LABS: Albumin/Globulin Ratio 1.3 (1.1-1.8); Calcium 8.8 mg/dl (8.4-10.2); Globulin 3.1 g/dL (1.3-3.2); Glucose 106 mg/dl (74-100)
[2024-03-11 12:19] LABS: Lymphocytes % 53 % (10-50); Monocytes % 4 % (2-9); Neutrophils % 43 % (42-76); Platelet Estimate Normal; RBC Morphology Normal; Total Cells Counted 100
[2024-03-11 12:23] LABS: C-Reactive Protein 1.3 mg/L (0-4)
== END 2024-03-11 13:18 | disposition home or self-care (01) ==
PROVIDERS: Emergency Provider Student in an Organized Health Care Education/Training Program; PCP Internal Medicine
DX: M25.562 Pain in left knee (principal); M71.22 Synovial cyst of popliteal space [Baker], left knee; M17.12 Unilateral primary osteoarthritis, left knee; R22.42 Localized swelling, mass and lump, left lower limb
CPT/HCPCS: 36415; 73562; 80053; 83735; 85007; 85025; 85027; 85651; 86140; 93971; 96374; 99284; J1885

== ENCOUNTER 2024-03-13 11:12 | Emergency (ER) | payer MEDICARE, MEDICAID, SELFPAY ==
[2024-03-13 11:35] VITALS: BP 84/48; PULSE 63; RESP 20; TEMP 36.5; O2SAT 96; BMI 20.3
--- NOTE | 2024-03-13 11:44 | XR_ITS ---
FINAL REPORT CLINICAL HISTORY: pain. nki FINDINGS: Right wrist Three views were obtained. There is no acute fracture or dislocation. There are mild degenerative changes. No soft tissue abnormality is identified. IMPRESSION: No acute process. Reviewed, Interpreted and Dictated by Emanuel Ignacio III, MD Transcribed by Briana Strickland Authenticated and [facility]
--- NOTE | 2024-03-13 12:17 | EXP.UTC ---
Discharge Plan Disposition Patient Disposition: Home, Self-Care Condition: Good Prescriptions Prescriptions: New methylprednisolone 4 mg Tablets,Dose Pack 4 mg PO DIRECTED 6 Days Qty: 21 0RF Rx Instructions: Take 1 pack as directed for 6 days No Action ondansetron 8 mg tablet,disintegrating 8 mg PO Q8H Qty: 90 0RF tizanidine 4 mg tablet 4 mg PO DAILY omeprazole 40 mg capsule,delayed release(DR/EC) 40 mg PO DAILY quetiapine 100 mg tablet 100 mg PO DAILY propranolol 40 mg tablet 40 mg PO DAILY gabapentin 800 mg tablet 800 mg PO TID flecainide 50 mg tablet 50 mg PO BID Patient Comments: TAKE ONE TABLET BY MOUTH TWICE DAILY FOR heart health pramipexole 0.25 mg tablet 0.25 mg PO HS Patient Comments: TAKE 1 TABLET BY MOUTH AT BEDTIME NIGHTLY oxycodone 10 mg tablet 10 mg PO QIDP PRN (Reason: Pain) Patient Comments: TAKE 1 TABLET BY MOUTH 4 TIMES DAILY NEEDED FOR PAIN Referrals Follow up/Referrals: Ramon Rodriguez DO [Staff Physician] - See instructions Hrajinder Lora DO [Primary Care Provider] - See instructions Activity Restrictions/Add. Instructions Additional Instructions/Restrictions: Rest the extremity, Elevate the extremity as tolerated while you are resting. Take ibuprofen for pain (if you can take this). Follow up with Dr. Rodriguez (orthopedics) if you continue to have these symptoms. I put in a referral but you need to call his office and schedule an appointment. Follow up with your regular doctor. GO TO THE ER FOR ANY WORSENING SYMPTOMS Clinical Impressions Clinical Impression: Right wrist pain Instructions Patient Instructions: DI for Wrist Pain Print Language Print Language: Tajik Discharge ED Provider: Jarad Edmond [facility] General Stated complaint: Pain / swelling in R wrist Mode of Arrival: Ambulatory Source of Information: Patient Limitations: No Limitations Time Seen by Provider: 03/13/24 12:13 Description of Symptoms (Recalled from Triage Doc. by RN): PATIENT C/O PAIN TO RIGHT WRIST THAT RADIATES UP HER FOREARM TO ELBOW THAT STARTED YESTERDAY. PATIENT DENIES INJURY HEENT Symptoms (Recalled from RN notes): No Resp Symptoms (Recalled from RN notes): No Skin Symptoms (Recalled from RN notes): No MS Symptoms (Recalled from RN notes): Yes Functional Status (Recalled from RN notes): WNL Related Data Home Medications ?Medication ?Instructions ?Recorded ?Confirmed flecainide 50 mg tablet 50 mg PO BID 03/13/24 03/13/24 gabapentin 800 mg tablet 800 mg PO TID 03/13/24 03/13/24 omeprazole 40 mg capsule,delayed 40 mg PO DAILY 03/13/24 03/13/24 release oxycodone 10 mg tablet 10 mg PO QIDP PRN Pain 03/13/24 03/13/24 pramipexole 0.25 mg tablet 0.25 mg PO HS 03/13/24 03/13/24 propranolol 40 mg tablet 40 mg PO DAILY 03/13/24 03/13/24 quetiapine 100 mg tablet 100 mg PO DAILY 03/13/24 03/13/24 tizanidine 4 mg tablet 4 mg PO DAILY 03/13/24 03/13/24 Previous Rx's ?Medication ?Instructions ?Recorded methylprednisolone 4 mg tablets in 4 mg PO DIRECTED 6 days #21 tabs 03/13/24 a dose pack ondansetron 8 mg disintegrating 8 mg PO Q8H #90 tabs 03/13/24 tablet Allergies Allergy/AdvReac Type Severity Reaction Status Date / Time codeine Allergy Unknown Unknown Verified 03/06/24 10:41 allergy reaction morphine Allergy Unknown Unknown Verified 03/06/24 10:41 allergy reaction naloxone Allergy Unknown Unknown Verified 03/06/24 10:41 allergy reaction paroxetine [From Paxil] Allergy Unknown Unknown Verified 03/06/24 10:41 allergy reaction losartan AdvReac Intermediate JOSE ENRIQUE Verified 03/11/24 11:15 carvedilol [From Coreg] AdvReac Mild hallucinati Verified 03/06/24 10:41 ons candesartan AdvReac JOSE ENRIQUE Verified 03/11/24 11:15 irbesartan AdvReac JOSE ENRIQUE Verified 03/11/24 11:15 Worker's Comp Is this a Worker's Comp case?: No [facility] Disclaimer: The information contained in this section may have been updated after the patient was seen, as this information can be updated by other users. Medical History Hallucinations SVT (supraventricular tachycardia) Chronic prescription benzodiazepine use TIA (transient ischemic attack) Will follow. Brain tumor Brain tumor (benign) This is in the old history we will just follow for now. Abnormal renal function Bleeding from right ear Syncope Syncope ROSETTE (obstructive sleep apnea) Fracture of left patella Surgical History History of brain surgery History of hand surgery H/O: hysterectomy has ovaries History of back surgery Family History Other Anemia Asthma Cancer Coronary artery disease Heart attack Hypertension Thyroid disorder Social History Smoking Status: Never smoker second hand exposure: No alcohol intake: never substance use type: former substance user current occupational status: other Travel in the last 8 weeks: None household members: none housing: other current occupational exposures/hazards: No caffeine: No ROS Obtained: Yes All systems reviewed & no additional complaints except as documented Constitutional Constitutional: Denies chills and Denies fever(s) Eyes Eyes: Denies eye discharge ENT Ears, Nose, Mouth, and Throat: Denies dizziness, Denies otalgia and Denies sore throat Cardiovascular Cardiovascular: Denies chest pain Respiratory Respiratory: Denies shortness of breath, Denies chest congestion, Denies cough, Denies stridor and Denies wheezing Gastrointestinal Gastrointestingal: Denies nausea or vomiting Musculoskeletal Musculoskeletal: Reports as per HPI Integumentary/Breasts Skin/Breast: Denies rash Neurologic Neurologic: Denies dizziness and Denies paresthesias Allergic/Immunologic Allergic/Immunologic: Denies wheezing Physical Exam General General appearance: alert and in no apparent distress Head Head exam: atraumatic, normocephalic and normal inspection Eye Eye exam: Present normal appearance, PERRL and EOMI ENT ENT exam: Present normal exam, normal oropharynx, mucous membranes moist, TM's normal bilaterally and normal external ear exam Neck Neck exam: Present normal inspection, full ROM and trachea midline; Absent meningismus or lymphadenopathy Chest Chest inspection: Present normal inspection and symmetric chest wall rise; Absent tenderness Respiratory Respiratory exam: Present normal lung sounds bilaterally; Absent respiratory distress Cardiovascular Cardiovascular exam: Present regular rate and normal rhythm; Absent JVD Abdominal Exam Abdominal exam: Present soft and normal bowel sounds; Absent distention, tenderness or guarding Extremities Exam Extremities exam: Present normal capillary refill; Absent calf tenderness Expanded Upper Extremity Exam Right: Elbow exam: Present normal inspection and full ROM; Absent tenderness, pain w/ pronation/supination or tenderness over radial head Forearm/Wrist exam: Present normal inspection and full ROM; Absent tenderness, swelling, abrasion, laceration, ecchymosis, deformity, crepitus, dislocation, erythema, tenderness over anatomical snuff box or pain with axial thumb loading Hand exam: Present full ROM and tenderness; Absent swelling, abrasion, laceration, skin avulsion, ecchymosis, deformity, crepitus, dislocation, erythema, amputation, nail avulsion or subungual hematoma Neuromotor exam: Normal wrist extension, thumb opposition, thumb IP flexion, thumb adduction and fingers 2-5 abduction Neurosensory exam: Normal radial nerve, ulnar nerve and median nerve Vascular exam: Normal capillary refill, radial pulse and ulnar pulse Back Exam Back exam: Present normal inspection; Absent tenderness Neurological Exam Neurological exam: Present alert and oriented X3 Psychiatric Psychiatric exam: Present normal affect and normal mood Skin Skin exam: Present warm, dry, intact and normal color Lymphatic Lymphatic Findings: no adenopathy Medical Decision Making Medical Records Medical records reviewed: No I reviewed the patient's medical records. Beriln Inquiry Pt receiving controlled substance: No Vital Signs: 03/13/24 11:35 Temperature 97.7 F Temperature Source Oral Pulse Rate [Left Brachial] 63 Respiratory Rate 20 Blood Pressure [Left Arm] 84/48 L Blood Pressure Mean [Left Arm] 60 Blood Pressure Source [Left Arm] Automatic Cuff Blood Pressure Position [Left Arm] Sitting 02 Sat by Pulse Oximetry 96 Oxygen Delivery Method Room Air Orders (Tests/Meds): ORDERS Category Date Time Status Wrist XR right minimum 3 views [XR wrist RT min 3V] Exams 03/13/24 11:44 Taken Stat
[2024-03-13 12:48] VITALS: BP 84/48; PULSE 63; RESP 20; TEMP 36.5; O2SAT 96
== END 2024-03-13 12:50 | disposition home or self-care (01) ==
PROVIDERS: Emergency Provider Nurse Practitioner Family; PCP Internal Medicine
DX: M25.531 Pain in right wrist (principal)
CPT/HCPCS: 73110; 99212; 99214; G0463

== ENCOUNTER 2024-04-10 10:00 | Outpatient (CLI) | payer MEDICARE, MEDICAID, SELFPAY ==
[2024-04-10 18:25] LABS: Hemoglobin A1C 5.6 % (4.0-6.0)
[2024-04-10 18:58] LABS: Chol/HDL Ratio 2.2 (1-3.5); Cholesterol 222 mg/dl (140-200); HDL Cholesterol 101 mg/dl (40-60); Triglycerides 135 mg/dl (30-150); VLDL Cholesterol 27 mg/dL (0-40)
[2024-04-10 19:14] LABS: Direct LDL Cholesterol 76.14 mg/dL (100-129)
== END 2024-04-10 23:59 | disposition home or self-care (01) ==
LOC: LAB.DROPOF 04-11 09:51
PROVIDERS: PCP Internal Medicine; Visit Provider Internal Medicine
DX: R73.09 Other abnormal glucose (principal); E03.9 Hypothyroidism, unspecified; R82.90 Unspecified abnormal findings in urine; R30.0 Dysuria
CPT/HCPCS: 80061; 83036; 87086

== ENCOUNTER 2024-05-17 14:00 | Outpatient (RCR) | payer MEDICARE, MEDICAID, SELFPAY ==
--- NOTE | 2024-04-22 11:54 | HMH.OTOPEV ---
OT Inpatient Evaluation Rehab OT Outpatient Eval Start: 04/22/24 11:32 Freq: Status: Active Protocol: Document 04/22/24 11:32 LENNOX (Rec: 04/22/24 11:54 [id number] E-signed By Liz Welsh, OT Outpatient Therapy Subjective History Subjective History Pt seen this date for initial evaluation for R hand. Pt had CTR on right hand ~5 years ago . Pt also has a history of RA. Pt reports that there has been significant pain in the R wrist/elbow area for ~4 months. Pt reports the past ~1 -2 months have been even worse . Pt reports going to the ER for R wrist pain a few months ago. 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 Pt reports having significant swelling near ulnar styloid process at times which exacerbates pain. Pt typically does not experience any numbness in the fingers. Pt regularly wears a brace throughout the day for support . Pt presents with decreased strength in dominant R hand in comparison to L hand. 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 Chief Complaint Pain,Stiff,Swelling,Weakness, Decreased Concrete Curer Strength Symptom Type Throb,Sharp Symptoms Relieved By Rest/Positioning,Brace/Support Symptoms Aggravated By Physical Activity,Twisting, Lifting Prior Functional Limitations None Current Functional Limitations Reaching,Lifting,Housework, Desk Work/Reading,Sleeping Symptom Description Constant but Variable Level of pain today (0-10) 4 Pain scale - at its best (0-10) 4 Pain scale - at its worst (0-10) 8 Wrist/Hand Eval Wrist Range of Motion Right Wrist Limitations of Range of Motion Pain Wrist Extension Active Range of Motion ( 60 degrees) Wrist Flexion Active Range of Motion ( 50 degrees) Wrist Radial Deviation Active Range of 30 Motion (degrees) Wrist Ulnar Deviation Active Range of 35 Motion (degrees) Wrist Manual Muscle Testing Right Wrist Extension Strength Grade 4- Good- Wrist Flexion Strength Grade 4- Good- Wrist Radial Deviation Strength Grade 4- Good- Wrist Ulnar Deviation Strength Grade 4- Good- Concrete Curer/Pinch Strength Left Concrete Curer Strength Measurement (lbs) 35 Right Concrete Curer Strength Measurement (lbs) 35 QuickDASH Activities Please rate your ability to do the following activities in the last week by selecting the number below the appropriate response. 1. Open a tight or new jar. Severe difficulty 2. Do heavy macerator operator (e.g., wash Severe difficulty forde, floors). 3. Carry a shopping bag or briefcase. Severe difficulty 4. Wash your back. Moderate difficulty 5. Use a knife to cut food. Moderate difficulty 6. Recreational activities in which you Severe difficulty take some force or impact through your arm, shoulder, or hand (e.g., golf, hammering, tennis, etc.). 7. During the past week, to what extent Extremely has your arm, shoulder or hand problem interfered with your normal social activities with family, friends, neighbors or groups? 8. During the past week, were you Very limited limited in your work or other regular daily activites as a result of your arm, shoulder or hand problem? 9. Arm, shoulder or hand pain. Extreme 10. Tingling (pins and needles) in your Severe arm, shoulder or hand. 11. During the past week, how much So much difficulty that I can' difficulty have you had sleeping because t sleep of the pain in your arm, shoulder or hand? Quick DASH 45 OT Outpatient Assessment Impairments Problems/Impairments Palpation Tenderness,Impaired Range of Motion,Impaired Strength,Impaired Endurance, Impaired Lifting,Impaired Household Care,Impaired Recreational Activities, Subjective C/O Pain Prognosis Rehab Potential Good Clinical Impression Consistent with Diagnosis Yes Short Term Goals Number of Weeks 3 Increase Range of Motion Yes: flex: 65 extension: 65 Increase Strength Yes: 4/5 throughout R wrist Increase Endurance Yes: pt will tolerate ~10 min of R wrist exercise prior to rest Decrease Subjective C/O Pain Yes: 6/10 at worst Improve Quick Dash Score Yes: activities: 35 or below Fdc Goals Number of Weeks 6 Increase Range of Motion Yes: flex: 70 extension: 70 Increase Strength Yes: 5/5 throughout R wrist Increase Endurance Yes: pt will tolerate ~15 minutes of R wrist exercise prior to rest Decrease Subjective C/O Pain Yes: 3/10 at worst Improve Quick Dash Score Yes: activities: 30 or below Outpatient Therapy Plan of Care Treatment Plan May Include Therapeutic Exercise Including Home Yes Exercise Program Manual Therapy Techniques Yes Neuromuscular Re-education Yes Therapeutic Activities to Return to Yes Previous Functional/Work Level ADL/Self Care Education Yes Thermal Modalities Yes Electrical Stimulation Yes Ultrasound/Phonophoresis Yes Iontophoresis Yes Parrafin Yes Orthotics/Bracing/Splinting Yes Massage Yes Eval/Re-Eval Yes Frequency Times per week 2 Duration Number of Weeks 6 Addendums This patient is a candidate for social No or vocational rehab? Patient/Guardian verbally acknowledges Yes understanding of treatment program and consents to further treatment? Patient/Guardian verbally acknowledges Yes understanding of diagnosis, prognosis and goals for treatment? Eval Complexity OT Charge 41781 - Moderate Complexity Shoulder/Elbow Eval Shoulder Objective Measurements Elbow Objective Measurements PHYSICIAN CERTIFICATION: I certify the specified therapy services for Sheryl Dunlap are required, authorized, and reviewed every 30 days.
== END 2024-05-17 23:59 | disposition home or self-care (01) ==
LOC: OT 14:00
PROVIDERS: Visit Provider Internal Medicine
DX: M25.531 Pain in right wrist (principal)
CPT/HCPCS: 97166

== ENCOUNTER 2024-05-22 14:41 | Outpatient (CLI) | payer MEDICARE, MEDICAID, SELFPAY ==
[2024-05-22 15:13] LABS: Basophils # 0.1 K/mm3 (0-0.2); Basophils % 0.9 % (0.1-2.0); Eosinophils % 0.5 % (0.1-12.0); Hematocrit 40.6 % (37.0-47.0); Hemoglobin 13.6 g/dL (12.2-16.2); Lymphocytes # 2.4 K/mm3 (0.7-4.5); Lymphocytes % 39.1 % (10-50); Mean Corpuscular HGB Conc 33.5 g/dL (31.8-35.4); Mean Corpuscular Hemoglobin 28.3 pg (27.0-31.2); Mean Corpuscular Volume 84.3 fl (81-99); Mean Platelet Volume 7.6 fl (7.4-10.4); Monocytes # 0.4 K/mm3 (0.1-1.0); Monocytes % 5.6 % (1.7-9.3); Neutrophils # 3.3 K/mm3 (1.8-7.8); Neutrophils % 53.8 % (37.0-80.0); Platelet Count 308 K/mm3 (142-424); Red Blood Count 4.81 M/mm3 (4.20-5.40); Red Cell Distribution Width 14.1 % (11.5-17.5); White Blood Count 6.2 K/mm3 (4.8-10.8)
[2024-05-22 15:48] LABS: Alanine Aminotransferase 19 U/L (12-78); Alkaline Phosphatase 134 U/L (38-126); Anion Gap 11.8 mEq/L (5-15); Aspartate Amino Transferase 32 U/L (14-36); Bilirubin,Direct 0.4 mg/dl (0.0-0.4); Bilirubin,Indirect 0.5 mg/dL (0.0-0.9); Bilirubin,Total 0.9 mg/dl (0.2-1.3); Bilirubin,Unconjugated 0.5 mg/dL (0.0-1.1); Blood Urea Nitrogen 22 mg/dl (7-17); Carbon Dioxide 29 mmol/L (22.0-30.0); Chloride 103 mmol/L (98-107); Cholesterol 246 mg/dl (140-200); Estimated Glomerular Filt Rate 51 ml/min (>60); GFR (African American) 62 ML/MIN (>60); Glucose 101 mg/dl (74-100); Magnesium 2.1 mg/dl (1.6-2.3); Potassium 4.8 mmoL/L (3.5-5.1); Sodium 139 mmol/L (136-145); Total Protein,Serum 8.5 g/dl (6.3-8.2); Triglycerides 211 mg/dl (30-150); VLDL Cholesterol 42 mg/dL (0-40)
[2024-05-22 15:53] LABS: D-Dimer 0.69 ug/mL (0.0-0.5)
[2024-05-22 15:58] LABS: NT Pro Brain Natriuretic Pep. 23.4 pg/mL (0-125)
[2024-05-22 15:59] LABS: Direct LDL Cholesterol 85.01 mg/dL (100-129)
[2024-05-22 16:04] LABS: Free T4 (Free Thyroxine) 1.03 ng/dl (0.78-2.19)
[2024-05-22 16:19] LABS: Thyroid Stimulating Hormone 1.16 uIU/mL (0.465-4.68)
[2024-05-22 17:08] LABS: Chol/HDL Ratio 2.4 (1-3.5); HDL Cholesterol 104 mg/dl (40-60)
[2024-05-31 15:11] LABS: Metanephrine Plasma 35.9 pg/mL (0.0-88.0)
== END 2024-05-22 23:59 | disposition home or self-care (01) ==
LOC: RT 14:41
PROVIDERS: PCP Internal Medicine; Visit Provider Internal Medicine
DX: R00.2 Palpitations (principal); I47.10 Supraventricular tachycardia, unspecified; I10 Essential (primary) hypertension; E78.5 Hyperlipidemia, unspecified; R06.00 Dyspnea, unspecified; R07.9 Chest pain, unspecified; R60.9 Edema, unspecified; G47.33 Obstructive sleep apnea (adult) (pediatric); Z87.898 Personal history of other specified conditions
CPT/HCPCS: 36415; 80048; 80061; 80076; 83735; 83835; 83880; 84439; 84443; 85025; 85378; 93270

== ENCOUNTER 2024-05-23 13:33 | Outpatient (CLI) | payer MEDICARE, MEDICAID, SELFPAY ==
--- NOTE | 2024-05-23 13:33 | CT_ITS ---
PROCEDURE INFORMATION: Exam: CTA Chest With Contrast Exam date and time: 05/23/2024 1:49 PM Age: 59 years old Clinical indication: Other: Elevated d-dimer; Additional info: Elevated d dimer TECHNIQUE: Imaging protocol: Computed tomographic angiography of the chest with contrast. Exam focused on the arteries. 3D rendering (Not supervised by radiologist): MIP and/or 3D reconstructed images were created by the technologist. Radiation optimization: All CT scans at this facility use at least one of these dose optimization techniques: automated exposure control; mA and/or kV adjustment per patient size (includes targeted exams where dose is matched to clinical indication); or iterative reconstruction. Contrast material: ISOVUE 370; Contrast volume: 70 ml; Contrast route: INTRAVENOUS (IV); COMPARISON: 1. CT ANGIO CHEST PE PROTOCOL 07/19/2023 12:[address] ANGIO CHEST PE PROTOCOL 09/01/2023 4:59 PM FINDINGS: Pulmonary arteries: No pulmonary artery embolism identified. Main pulmonary artery is normal caliber. Aorta: No aortic aneurysm. No aortic dissection or evidence of acute aortic abnormality. Lungs: Mild apical pulmonary emphysema. No consolidation, mass, or suspicious pulmonary nodule. Pleural spaces: No pneumothorax. No pleural effusion. Heart: Heart size is normal. No pericardial effusion. Coronary arteries: Mild coronary artery calcifications. Lymph nodes: No adenopathy. Bones/joints: No acute osseous abnormality or suspicious osseous lesion. Findings compatible with DISH and lower cervical fusion plate are again demonstrated. Soft tissues: Unremarkable. Other findings: No acute abnormality in the included upper abdomen. Few stable hepatic cysts. IMPRESSION: 1. No pulmonary artery embolism. 2. Mild apical pulmonary emphysema. No pulmonary consolidation, mass, or suspicious pulmonary nodule. 3. Other chronic and incidental findings as detailed above. COMMENTS: The presence of pulmonary emphysema on CT is an independent risk factor for lung cancer. In the absence of a history or active diagnosis of lung cancer, it is recommended that this patient with emphysema be evaluated for enrollment in a low dose CT lung cancer screening program.
[2024-05-23] MEDS: 0.9 % SODIUM CHLORIDE 50 ML VIAL IV (13:56)
[2024-05-23] MEDS: SODIUM CHLORIDE 0.9% 10ML SYR (RAD ONLY) 10 ML IV (13:56)
[2024-05-23] MEDS: IOPAMIDOL-370 (76%);100ML BOTTLE 75 ML IV (13:56)
== END 2024-05-23 23:59 | disposition home or self-care (01) ==
LOC: RAD 13:33
PROVIDERS: PCP Internal Medicine; Visit Provider Internal Medicine
DX: R79.89 Other specified abnormal findings of blood chemistry (principal); R06.02 Shortness of breath; I47.10 Supraventricular tachycardia, unspecified
CPT/HCPCS: 71275; Q9967

== ENCOUNTER 2024-05-24 11:04 | Outpatient (CLI) | payer MEDICARE, MEDICAID, SELFPAY ==
[2024-05-28 14:13] LABS: Metanephrine, U,24hr 91 ug/24 hr (36-209); Metanephrine, Ur 49 ug/L (Undefined); Normetanephr.,U,24h 315 ug/24 hr (131-612); Normetanephrine, Ur 170 ug/L (Undefined)
== END 2024-05-24 23:59 | disposition home or self-care (01) ==
LOC: LAB 11:05
PROVIDERS: PCP Internal Medicine; Visit Provider Internal Medicine
DX: R00.2 Palpitations (principal); E78.5 Hyperlipidemia, unspecified; I10 Essential (primary) hypertension; G47.33 Obstructive sleep apnea (adult) (pediatric); Z87.898 Personal history of other specified conditions; I47.10 Supraventricular tachycardia, unspecified; R06.00 Dyspnea, unspecified; R07.9 Chest pain, unspecified; R60.9 Edema, unspecified; Z87.891 Personal history of nicotine dependence
CPT/HCPCS: 83835

== ENCOUNTER 2024-05-29 14:52 | Outpatient (CLI) | payer MEDICARE, MEDICAID, SELFPAY ==
--- NOTE | 2024-05-29 14:56 | CA_ITS ---
APPROVED REPORT EXAM: Comprehensive 2D, Doppler, and color-flow Echocardiogram Drum Sander: Agustina Hutchinson RT(R) Ht: 5 ft 7 in Wt: 178lbs BSA: 1.92 BP: 161/102 mmHg Indications: HTN, CP, palpitations, edema, SVT, TIA, ROSETTE, family history of HD 2D Dimensions LA Volume 16.40 mL LA Volume Index 8.50 mL/m2 (M/F) 16-34 EF AP4 64.60 % GL Strain -26.1 % M-Mode Dimensions RVDd 2.28 cm (0.9-2.6) LA Diam 3.13 cm (1.9-4.0) LVDd 4.45 cm (3.5-5.7) LVDs 3.38 cm (3.5-5.7) IVSd 0.97 cm (0.6-1.1) PWd 0.80 cm (0.6-1.1) EF (Teich) 48.10% FS 24.00% EDV (Teich) 90.10 mL ESV (Teich) 46.80 mL LV Diastology E Decel Time 230 (160-240 msec) E/A Ratio 0.79 Mitral Valve MV A Velocity 83.0 (40-130 cm/s) E/A Ratio 0.79 Tricuspid Valve TR P. Velocity 237.00 cm/s RAP Estimate 10.00 mmHg RVSP 32.50 mmHg Left Ventricle The left ventricle is normal size. The left ventricular systolic function is normal. The left ventricular ejection fraction is within the normal range. There is increased LV wall thickness. There is normal LV segmental wall motion. Transmitral Doppler flow pattern suggests impaired LV relaxation. LVEF is 55%. Right Ventricle The right ventricle is normal size. The right ventricular systolic function is normal. Atria The left atrium size is normal. The right atrium size is normal. There is no Doppler evidence of interatrial shunt. Aortic Valve The aortic valve opens well. There is no aortic valvular stenosis. No aortic regurgitation is present. Mitral Valve The mitral valve is normal in structure. No evidence of mitral valve stenosis. Trace mitral regurgitation. Tricuspid Valve The tricuspid valve leaflets are thin and pliable. Trace tricuspid regurgitation. There is insufficient TR jet to estimate RVSP. Pulmonic Valve The pulmonary valve is normal in structure. Trace pulmonic regurgitation. Great Vessels The aortic root is normal in size. IVC is normal in size and collapses >50% with inspiration. Pericardium There is no pericardial effusion. Other Information Study Quality: Fair Conclusion Normal biventricular systolic function. No significant valvular stenosis or regurgitation. Electronically signed by : Jennyfer Vidal MD 06/03/2024 15:36:18
== END 2024-05-29 23:59 | disposition home or self-care (01) ==
LOC: RT 14:53
PROVIDERS: PCP Internal Medicine; Visit Provider Internal Medicine
DX: R00.2 Palpitations (principal); I47.10 Supraventricular tachycardia, unspecified; R06.00 Dyspnea, unspecified; R07.9 Chest pain, unspecified; R60.9 Edema, unspecified
CPT/HCPCS: 93306

== ENCOUNTER 2024-06-25 11:14 | Outpatient (CLI) | payer MEDICARE, MEDICAID, SELFPAY ==
--- NOTE | 2024-06-25 | CA_ITS ---
APPROVED REPORT Exam: Pharmacologic Technologist: Brandi Grant Ht: 5 ft 7 in Wt: 185 lbs BSA: 1.96 m2 HR: 71 bpm BP: 174/100 mmHg Rhythm: SR Medical History Cardiac Risk Factors: HTN, Smoking Stress Test Details HR Resting HR: 71 bpm Max Heart Rate (APMHR): 163.049282 bpm Target HR (85% APMHR): 138.702322 bpm Recovery HR: 96 bpm BP Resting BP: 174.0/100.0 mmHg Recovery BP: 164.0/99.0 mmHg ECG Resting ECG: SR Stress ECG Conclusion During lexiscan pt experinced racing heart and headache. PVCs noted. Less than 1mm ST depression. EKG unremarkable due to lexiscan infusion. Electronically signed by : Jennyfer Vidal MD 07/01/2024 13:03:30
--- NOTE | 2024-06-25 11:15 | NM_ITS ---
APPROVED REPORT Exam: Nuclear Stress Test Indication: Angina, SOB, Palpitations, HTN, Family history Patient Location: Outpatient Stress Tech: Brandi Rudy SPARROW Tech:Latiayaquelin Smith ARRT, RT (R)(N) Ht: 5 ft 7 in Wt: 185 lbs Bra Size: 38DD HR: 71 bpm BP: 174/100 mmHg BSA: 1.96 m2 TID: 1.01 BMI: 28.9 History: Angina, SOB, Palpitations, HTN, Family history Procedure: Patient received 0.4 mg of intravenous Lexiscan, resting heart rate 71 bpm, resting blood pressure 174/100 mmHg, with Lexiscan maximum heart rate achieved was 119 bpm which is % of the maximum predicted heart rate and blood pressure was 124/104 mmHg. With Lexiscan, patient denied any complaint of chest pain. Cardiac Stress and Resting SPECT Images: Cardiac Stress and Resting SPECT images were obtained using technetium 99m Myoview 32.2 mCi stress and 10.08 mCi at rest. Resting and stress imaging in supine and prone positions demonstrate no evidence of fixed or reversible perfusion defects. Gated imaging demonstrates normal global and regional LV systolic function. LVEF is calculated at 62%. Conclusion: No evidence of fixed or reversible perfusion defects. Gated imaging demonstrates normal global and regional LV systolic function. LVEF is calculated at 62%. Electronically signed by : Jennyfer Vidal MD 06/26/2024 14:43:50
[2024-06-25] MEDS: SODIUM CHLORIDE 0.9% 10ML SYR (RAD ONLY) 10 ML IV ×2 (12:48)
[2024-06-25] MEDS: ISOTOPE MYOVIEW (PER STUDY) 1 DOSE IV (12:48)
[2024-06-25] MEDS: REGADENOSON 0.4MG/5ML SYRINGE 0.4 MG IV (12:48)
== END 2024-06-25 23:59 | disposition home or self-care (01) ==
LOC: RAD 11:15
PROVIDERS: PCP Internal Medicine; Visit Provider Internal Medicine
DX: R06.00 Dyspnea, unspecified (principal); I47.10 Supraventricular tachycardia, unspecified; I10 Essential (primary) hypertension; E78.5 Hyperlipidemia, unspecified; R42 Dizziness and giddiness; R00.2 Palpitations
CPT/HCPCS: 78452; 93017; 93018; A9502; J2785

== ENCOUNTER 2024-08-15 11:24 | Outpatient (CLI) | payer MEDICARE, MEDICAID, SELFPAY ==
[2024-08-15 11:46] LABS: Eosinophils % 0.3 % (0.1-12.0); Hemoglobin 11.8 g/dL (12.2-16.2); Lymphocytes # 2.5 K/mm3 (0.7-4.5); Lymphocytes % 39.4 % (10-50); Mean Corpuscular HGB Conc 31.9 g/dL (31.8-35.4); Mean Corpuscular Hemoglobin 27.2 pg (27.0-31.2); Mean Corpuscular Volume 85.3 fl (81-99); Mean Platelet Volume 9.5 fl (7.4-10.4); Monocytes # 0.5 K/mm3 (0.1-1.0); Monocytes % 7.8 % (1.7-9.3); Neutrophils # 3.4 K/mm3 (1.8-7.8); Platelet Count 316 K/mm3 (142-424); Red Blood Count 4.34 M/mm3 (4.20-5.40); Red Cell Distribution Width 13.2 % (11.5-17.5); White Blood Count 6.4 K/mm3 (4.8-10.8)
[2024-08-20 09:55] LABS: D001-IgE D pteronyssinus <0.10 kU/L (Class 0); D002-IgE D farinae <0.10 kU/L (Class 0); E001-IgE Cat Dander <0.10 kU/L (Class 0); E005-IgE Dog Dander <0.10 kU/L (Class 0); E072-IgE Mouse Urine <0.10 kU/L (Class 0); G002-IgE Bermuda Grass 0.13 kU/L (Class 0/I); G006-IgE Timothy Grass 0.12 kU/L (Class 0/I); I006-IgE Cockroach, German <0.10 kU/L (Class 0); Immunoglobulin E, Total 41 IU/mL (6-495); M001-IgE Penicillium chrysogen <0.10 kU/L (Class 0); M002-IgE Cladosporium herbarum <0.10 kU/L (Class 0); M003-IgE Aspergillus fumigatus <0.10 kU/L (Class 0); M006-IgE Alternaria alternata <0.10 kU/L (Class 0); T001-IgE Maple/Box Elder 0.12 kU/L (Class 0/I); T003-IgE Common Silver Birch <0.10 kU/L (Class 0); T006-IgE Cedar, Mountain 0.16 kU/L (Class 0/I); T007-IgE Oak, White 0.12 kU/L (Class 0/I); T008-IgE Elm, American 0.11 kU/L (Class 0/I); T010-IgE Walnut 0.13 kU/L (Class 0/I); T011-IgE Maple Leaf Sycamore 0.16 kU/L (Class 0/I); T014-IgE Cottonwood 0.11 kU/L (Class 0/I); T015-IgE Ash, White 0.13 kU/L (Class 0/I); T022-IgE Pecan, Hickory <0.10 kU/L (Class 0); T070-IgE White Mulberry <0.10 kU/L (Class 0); W001-IgE Ragweed, Short 0.12 kU/L (Class 0/I); W014-IgE Pigweed, Common <0.10 kU/L (Class 0); W018-IgE Sheep Sorrel <0.10 kU/L (Class 0)
== END 2024-08-15 23:59 | disposition home or self-care (01) ==
LOC: LAB 11:26
PROVIDERS: PCP Internal Medicine; Visit Provider Internal Medicine Pulmonary Disease
DX: J45.909 Unspecified asthma, uncomplicated (principal)
CPT/HCPCS: 36415; 82785; 85025; 86003

== ENCOUNTER 2024-09-12 09:12 | Outpatient (CLI) | payer MEDICARE, MEDICAID, SELFPAY ==
--- NOTE | 2024-09-12 09:26 | MR_ITS ---
FINAL REPORT TECHNIQUE: Multiplanar MR, without and with gadolinium enhancement CLINICAL HISTORY: back pain COMPARISON: None FINDINGS: Sagittal images show normal vertebral height. Prior fusion has been performed at the L4-5 level. Alignment is normal. Marrow signal pattern is unremarkable. There is no evidence of abnormal enhancement after contrast administration. L1-2: Mild facet arthropathy is present without evidence of disc protrusion or canal stenosis. L2-3: A moderate annular bulge is present with moderate facet arthropathy, moderate central canal stenosis, and mild bilateral neural foraminal narrowing. L3-4: Mild to moderate annular bulge with mild central canal stenosis and mild bilateral neural foraminal narrowing. L4-5: The patient is post laminectomy and fusion at this level. There is severe canal stenosis. L5-S1: The patient is post laminectomy and fusion at this level. There is severe canal stenosis present, with mild bilateral neural foraminal narrowing. IMPRESSION: Degenerative canal stenosis is present at the L2-3 and L3-4 levels as described. Reviewed, Interpreted and Dictated by Min Gilbert MD Transcribed by Livia Pryor Authenticated and . [facility]
[2024-09-12 09:37] LABS: Blood Urea Nitrogen 16 mg/dl (7-17); Estimated Glomerular Filt Rate 46 ml/min (>60); GFR (African American) 56 ML/MIN (>60)
[2024-09-12] MEDS: GADOTERIDOL INJ 20ML SYRINGE 16 ML IV (10:11)
[2024-09-12] MEDS: SODIUM CHLORIDE 0.9% 10ML SYR (RAD ONLY) 10 ML IV (10:11)
== END 2024-09-12 23:59 | disposition home or self-care (01) ==
PROVIDERS: PCP Internal Medicine; Visit Provider Internal Medicine
DX: M54.16 Radiculopathy, lumbar region (principal); M51.369 Other intervertebral disc degeneration, lumbar region without mention of lumbar back pain or lower extremity pain; I48.0 Paroxysmal atrial fibrillation
CPT/HCPCS: 36415; 72158; 82565; 84520; 93270; A9576

== ENCOUNTER 2024-11-15 13:03 | Emergency (ER) | payer MEDICARE, MEDICAID, SELFPAY ==
[2024-11-15] VITALS (8 sets, daily range): BP systolic 115–149; BP diastolic 63–101; PULSE 62–77; RESP 16; TEMP 36.6; O2SAT 96–100; BMI 31.3
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
--- NOTE | 2024-11-15 13:43 | CT_ITS ---
FINAL REPORT TECHNIQUE: After the administration of oral and intravenous contrast, axial images were obtained through the abdomen and pelvis by computed tomography. The study was performed with techniques to keep radiation dose as low as reasonably achievable, (ALARA). Individual dose reduction techniques using automated exposure control or adjustment of mA and/or kV according to the patient's size were employed. CLINICAL HISTORY: Incontinence of stool, low back pain with sciatica COMPARISON: 01/16/2024 FINDINGS: Abdomen: The lung bases are clear. There are multiple well-circumscribed low-attenuation structures in the liver, probably due to benign cysts. Largest focus measures 3 cm and resides in the inferior portion of the lateral segment of the left lobe of the liver. The gallbladder is contracted. The spleen, pancreas, adrenals and kidneys appear unremarkable. The aorta is normal in caliber. There is no free fluid or adenopathy. Pelvis: There is a large amount of stool in the colon. The appendix is normal. The urinary bladder is unremarkable. There is no free fluid or adenopathy. Streak artifact is seen arising from fusion hardware bridging the lower lumbar spine. Posterior laminectomy defect is present. Calcified phleboliths are seen in the floor of the pelvis.. There is moderate spinal canal compromise at L2-3. IMPRESSION: Large amount of retained stool. Reviewed, Interpreted and Dictated by Tay Miner MD Transcribed by Briana Strickland Authenticated and [facility]
[2024-11-15] MEDS: KETOROLAC 30MG/ML VIAL 15 MG IV (14:03)
[2024-11-15] MEDS: ACETAMINOPHEN 1,000MG/100ML VIAL 1000 MG IV (14:03)
[2024-11-15] MEDS: METHOCARBAMOL 500MG TABLET 500 MG PO (14:03)
[2024-11-15] MEDS: METHYLPREDNISOLONE SOD SUCC 125MG VIAL 125 MG IM (14:03)
[2024-11-15] MEDS: 0.9 % SODIUM CHLORIDE 1000ML 1,000 ML 999 ML IV (14:04)
[2024-11-15 14:06] LABS: Microscopic, Urine URINE MICROSCOPIC (MICROSCOPIC)
[2024-11-15 14:07] LABS: Appearance,Urine CLEAR (Clear); Bilirubin,Urine Negative (Negative); Blood, Urine Negative (Negative); Color,Urine YELLOW (Yellow); Glucose,Urine (UA) Negative (Negative); Ketones,Urine Negative (Negative); Leukocyte Esterase,Urine TRACE (Negative); Nitrate,Urine Negative (Negative); Protein,Urine Negative (Negative); Specific Gravity, Urine 1.025 (1.005-1.030); Urobilinogen,Urine 0.2 EU/dl (0.2)
[2024-11-15 14:25] LABS: Basophils % 0.1 % (0.1-2.0); Hematocrit 35.7 % (37.0-47.0); Hemoglobin 11.7 g/dL (12.2-16.2); Lymphocytes # 1.8 K/mm3 (0.7-4.5); Lymphocytes % 25.9 % (10-50); Mean Corpuscular HGB Conc 32.8 g/dL (31.8-35.4); Mean Corpuscular Hemoglobin 27.6 pg (27.0-31.2); Mean Corpuscular Volume 84.2 fl (81-99); Mean Platelet Volume 9.4 fl (7.4-10.4); Monocytes # 0.5 K/mm3 (0.1-1.0); Monocytes % 7.3 % (1.7-9.3); Neutrophils # 4.6 K/mm3 (1.8-7.8); Neutrophils % 66.3 % (37.0-80.0); Nucleated Red Blood Cells # 0 10^3/uL; Nucleated Red Blood Cells % 0 %; Platelet Count 336 K/mm3 (142-424); Red Blood Count 4.24 M/mm3 (4.20-5.40); Red Cell Distribution Width 13.1 % (11.5-17.5)
[2024-11-15 14:34] LABS: Alanine Aminotransferase 19 U/L (12-78); Albumin Level 4.2 g/dl (3.5-5.0); Albumin/Globulin Ratio 1.2 (1.1-1.8); Alkaline Phosphatase 151 U/L (38-126); Anion Gap 12.7 mEq/L (5-15); Aspartate Amino Transferase 25 U/L (14-36); Bilirubin,Total 0.6 mg/dl (0.2-1.3); Blood Urea Nitrogen 21 mg/dl (7-17); Calcium 9.1 mg/dl (8.4-10.2); Carbon Dioxide 28 mmol/L (22.0-30.0); Chloride 99 mmol/L (98-107); Creatinine Clearance Estimated 74 mL/min (50-200); Estimated Glomerular Filt Rate 46 ml/min (>60); GFR (African American) 56 ML/MIN (>60); Globulin 3.5 g/dL (1.3-3.2); Glucose 115 mg/dl (74-100); Lipase 133 U/L (23-300); Magnesium 2.4 mg/dl (1.6-2.3); Potassium 3.7 mmoL/L (3.5-5.1); Sodium 136 mmol/L (136-145); Total Protein,Serum 7.7 g/dl (6.3-8.2)
[2024-11-15 14:39] LABS: C-Reactive Protein 0.6 mg/L (0-4)
[2024-11-15 14:39] LABS: Transitional Epi Cells,Urine OCC #/lpf (0-3)
[2024-11-15 14:40] LABS: Bacteria,Urine 2+ /lpf
[2024-11-15 14:50] LABS: Procalcitonin 0.039 ng/mL (0.0-2.0)
[2024-11-15 14:52] LABS: Erythrocyte Sedimentation Rate 32 mm/hr (0-30)
[2024-11-15] MEDS: IOPAMIDOL-370 (76%);100ML BOTTLE 75 ML IV (14:54)
[2024-11-15] MEDS: SODIUM CHLORIDE 0.9% 10ML SYR (RAD ONLY) 10 ML IV (14:54)
[2024-11-15 15:48] LABS: HIV Combo NEGATIVE (Negative)
[2024-11-15 15:56] LABS: Hepatitis C Ab Qual. W/ RFX NEGATIVE (Negative)
--- NOTE | 2024-11-15 16:28 | PC.NURSE ---
Obtained a small amount of solid stool (1cm x 2cm x 1cm) from pt. Sent to lab. Aware this will not be a appropriate sample for diarrhea panel, but pt would like to be Checked for worms I called lab and s/w Trinity and she states that it will not be enough . I inquired what would be a satisfactory sample amount of stool for parasite testing and they don't know I'll have to check . Seamus MARTINEZ notified of this and he states, we'll just cancel the test .
== END 2024-11-15 16:36 | disposition home or self-care (01) ==
PROVIDERS: Physician Assistant; Emergency Provider Emergency Medicine; PCP Family Medicine
DX: M54.41 Lumbago with sciatica, right side (principal); R10.817 Generalized abdominal tenderness; K59.00 Constipation, unspecified; Z11.59 Encounter for screening for other viral diseases; Z11.4 Encounter for screening for human immunodeficiency virus [HIV]
CPT/HCPCS: 74177; 80053; 81001; 83690; 83735; 84145; 85025; 85651; 86140; 86803; 87086; 87389; 96361; 96372; 96374; 96375; 99284; J0131; J1885; J2919; J7030; Q9967

== ENCOUNTER 2024-12-27 12:03 | Emergency (ER) | payer MEDICARE, MEDICAID, SELFPAY ==
[2024-12-27] VITALS (7 sets, daily range): BP systolic 123–155; BP diastolic 70–102; PULSE 68–94; RESP 18–20; TEMP 36.4–37; O2SAT 91–95; BMI 28.6
--- NOTE | 2024-12-27 12:20 | CT_ITS ---
FINAL REPORT TECHNIQUE: Axial images through the abdomen and pelvis were performed without contrast. This study was performed with techniques to keep radiation doses as low as reasonably achievable, (ALARA). Individualized dose reduction techniques using automated exposure control or adjustment of mA and/or kV according to the patient's size were employed. CLINICAL HISTORY: CVA tenderness, lower abd pain, hx of kidney infection and uti COMPARISON: 11/15/2024 FINDINGS: CT ABDOMEN PELVIS WITHOUT CONTRAST: Abdomen: The lung bases are clear. There is a benign-appearing 26 mm hypodense region in the lateral lobe of the liver, consistent with a cyst. The gallbladder appears somewhat distended. The spleen, pancreas, adrenals and kidneys are unremarkable. Pelvis: The urinary bladder is unremarkable. There is streak artifact noted from a posterior lumbar fusion. A large amount of stool is present in the colon. The appendix is not visualized. There is no pelvic mass or inflammation. Pelvic calcifications are likely phleboliths. IMPRESSION: Large amount of stool is present in the colon. Nonspecific distention of the gallbladder without evidence of gallstones seen. No biliary ductal dilatation is present. Reviewed, Interpreted and Dictated by Tay Miner MD Transcribed by Livia Pryor Authenticated and [facility]
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
[2024-12-27 13:08] LABS: Hematocrit 39.3 % (37.0-47.0); Hemoglobin 12.8 g/dL (12.2-16.2); Immature Granulocytes # 0.01 10^3uL; Immature Granulocytes % 0.2 %; Lymphocytes # 1.6 K/mm3 (0.7-4.5); Lymphocytes % 39.2 % (10-50); Mean Corpuscular HGB Conc 32.6 g/dL (31.8-35.4); Mean Corpuscular Hemoglobin 27.3 pg (27.0-31.2); Mean Corpuscular Volume 83.8 fl (81-99); Mean Platelet Volume 9.2 fl (7.4-10.4); Monocytes # 0.6 K/mm3 (0.1-1.0); Monocytes % 13.6 % (1.7-9.3); Neutrophils # 1.9 K/mm3 (1.8-7.8); Nucleated Red Blood Cells # 0 10^3/uL; Nucleated Red Blood Cells % 0 %; Platelet Count 270 K/mm3 (142-424); Red Blood Count 4.69 M/mm3 (4.20-5.40); Red Cell Distribution Width 13.2 % (11.5-17.5); Red Cell Distribution Width-SD 40.2 fL
[2024-12-27 13:14] LABS: Chloride 96 mmol/L (98-107)
[2024-12-27 13:15] LABS: Albumin Level 4.7 g/dl (3.5-5.0); Sodium 138 mmol/L (136-145)
[2024-12-27 13:17] LABS: Blood Urea Nitrogen 22 mg/dl (7-17)
[2024-12-27 13:18] LABS: Alanine Aminotransferase 35 U/L (12-78); Albumin/Globulin Ratio 1.2 (1.1-1.8); Alkaline Phosphatase 164 U/L (38-126); Anion Gap 10.9 mEq/L (5-15); Aspartate Amino Transferase 45 U/L (14-36); Bilirubin,Total 0.3 mg/dl (0.2-1.3); Calcium 9.8 mg/dl (8.4-10.2); Carbon Dioxide 34 mmol/L (22.0-30.0); Creatinine Clearance Estimated 48 mL/min (50-200); Estimated Glomerular Filt Rate 31 ml/min (>60); GFR (African American) 37 ML/MIN (>60); Globulin 3.8 g/dL (1.3-3.2); Glucose 122 mg/dl (74-100); Total Protein,Serum 8.5 g/dl (6.3-8.2)
[2024-12-27 13:43] LABS: Microscopic, Urine URINE MICROSCOPIC (MICROSCOPIC)
--- NOTE | 2024-12-27 13:50 | PC.NURSE ---
pt states that she feels like she has to pee but is unable to pt bladder scan scan showed 200ml. pt in and out cathed for urine sample.
[2024-12-27 13:52] LABS: Potassium 2.9 mmoL/L (3.5-5.1)
[2024-12-27 13:58] LABS: Appearance,Urine SL CLOUDY (Clear); Bilirubin,Urine Negative (Negative); Blood, Urine TRACE-I (Negative); Color,Urine YELLOW (Yellow); Glucose,Urine (UA) Negative (Negative); Ketones,Urine Negative (Negative); Leukocyte Esterase,Urine 2+ (Negative); Nitrate,Urine POSITIVE (Negative); Protein,Urine 1+ (Negative); Specific Gravity, Urine 1.025 (1.005-1.030); Urobilinogen,Urine 0.2 EU/dl (0.2)
[2024-12-27] MEDS: ONDANSETRON 4MG/2ML VIAL 4 MG IV (14:09)
[2024-12-27] MEDS: 0.9 % SODIUM CHLORIDE 1000ML 1,000 ML 999 ML IV (14:09)
[2024-12-27] MEDS: POTASSIUM CHLORIDE 20MEQ TAB 40 MEQ PO (14:09)
[2024-12-27 14:19] LABS: Bacteria,Urine 3+ /lpf; Squamous Epithelial Cell,Urine Occasional #/hpf (0-5); WBC,Urine 20-50 #/hpf (0-3)
[2024-12-27] MEDS: LACTULOSE 20GM/30ML UDC 20 GM PO (16:00)
[2024-12-27] MEDS: BISACODYL 5MG TABLET 5 MG PO (16:00)
[2024-12-27] MEDS: SENNOSIDES 8.6MG/DOCUSATE 50MG TABLET 1 TAB PO (16:00)
[2024-12-27] MEDS: POLYETHYLENE GLYCOL 3350 17 GM PACKET PO (16:00)
--- NOTE | 2025-01-02 08:01 | PC.NURSE ---
Urine culture results reviewed by Dr. Green, no further action needed at this time.
== END 2024-12-27 16:09 | disposition home or self-care (01) ==
PROVIDERS: Nurse Practitioner Acute Care; Emergency Provider Emergency Medicine; PCP Family Medicine
DX: R10.30 Lower abdominal pain, unspecified (principal); E87.6 Hypokalemia; N30.00 Acute cystitis without hematuria; R30.0 Dysuria; K59.00 Constipation, unspecified
CPT/HCPCS: 74176; 80053; 81001; 85025; 87040; 87086; 87088; 87186; 96361; 96374; 99285; J2405; J7030

== ENCOUNTER 2025-02-07 09:26 | Outpatient (CLI) | payer MEDICARE, MEDICAID, SELFPAY ==
--- NOTE | 2025-02-07 09:42 | XR_ITS ---
FINAL REPORT CLINICAL HISTORY: pain in left hip after a fall 2 days ago (02/05/2025) FINDINGS: LEFT HIP Three views were obtained. There is no fracture or dislocation. The joint spaces appear normal. No soft tissue abnormality is identified. IMPRESSION: No acute process. Should symptoms persist, consider CT or MRI follow-up Reviewed, Interpreted and Dictated by Min Gilbert MD Transcribed by Briana Strickland Authenticated and [facility]
--- OUTSIDE RECORDS SUMMARY | 2025-02-07 09:42 | XMS_ITS | Encounter Summary ---
Author Organization Healthcare Address [address] [place] [address] Care Team Providers Care Dealer Sales Rep Name Role Phone Alexx Madrid MD Primary Care Provider Harjinder Lora DO Primary Care Provider [phone] Encounter Details Date Type Department Care Team (Late st Contact Info) Description 05/28/2021 [facility] [address] [place] [id number] [place], [place] [address] [place], [place] [phone] Chronic joint pain (Primary Dx) Social History Tobacco Use Types Packs/Day Years Used Date Smoking Tobacco: Never Assessed Comments Unknown Sex and Gender Information Value Date Recorded Sex Assigned at Not on file Legal Sex Female 8:28 PM EDT Gender Identity Not on file Sexual Orientation Not on file documented as of this encounter Plan of Treatment Not on file documented as of this encounter Visit Diagnoses Diagnosis Chronic joint pain- Primary Pain in joint, site unspecified documented in this encounter Care Teams Dealer Sales Rep Relationship Specialty [place] [address] [place] [id number] PCP - General 12/11/20 06/17/21 Harjinder Lora DO [address] [place] [address] PCP - General 02/19/24 documented as of this encounter
--- OUTSIDE RECORDS SUMMARY | 2025-02-07 09:42 | XMS_ITS | Clinical Summary ---
Author Organization [facility] Address [address] [place] [address] Care Team Providers Care In Service Coordinator Name Role Phone GuidoHarjinder Primary Care Provider [phone] Social History Tobacco Use Types Packs/Day Years Used Date Smoking Tobacco: Never Assessed Comments Unknown Sex and Gender Information Value Date Recorded Sex Assigned at Not on file Legal Sex Female 8:28 PM EDT Gender Identity Not on file Sexual Orientation Not on file Plan of Treatment Not on file Insurance [employer] MEDICARE [employer] MEDICAID Care Teams In Service Coordinator Relationship Specialty Start Date End Date Harjinder Lora DO [address] [place] [address] PCP - General 02/19/24
== END 2025-02-07 23:59 | disposition home or self-care (01) ==
LOC: RAD 09:40
PROVIDERS: PCP Family Medicine; Visit Provider Family Medicine
DX: M25.559 Pain in unspecified hip (principal)
CPT/HCPCS: 73502

== ENCOUNTER 2025-02-17 21:19 | Emergency (ER) | payer MEDICARE, MEDICAID, SELFPAY ==
--- OUTSIDE RECORDS SUMMARY | 2017-09-08 14:30 | XMS_ITS | Encounter Summary ---
Author Organization [employer] [place] [address] Care Team Providers Care Laborer Marine Terminal Name Role Phone Mingo Whatley MD Primary Care Provider Un available Encounter Details Date Type Department Care Team (Latest Contact Info) Description 09/08/2017 1:30 PM [facility] Hospital Encounter [facility] Referral Lab [address] [phone] Harjinder Cain MD [address] [place] [address] Urinary tract infection Social History Tobacco Use [...] shopping? No 10/16/2019 8:25 AM EDT Rock Perze MA Because of a physical, menta l [...] specified documented in this encounter Care Teams Laborer Marine Terminal Relationship Specialty Start Date End Date Mingo Whatley MD PCP - General Family Medicine 09/07/17 9 documented as of this encounter
--- OUTSIDE RECORDS SUMMARY | 2020-03-16 10:53 | XMS_ITS | Encounter Summary ---
Author Organization [place] [address] Care Team Providers Care Net Repairer Name Role Phone Candi Nuno MD Primary Care Provider [phone] Encounter Details Date Type Department Care Team (Latest Contact Info) Description 03/16/2020 10:53 AM EDT Hospital Encounter [facility] Referral Lab 1 [place] [address] Major depressive disorder, single episode, moderate (HCC) [...] moderate documented in this encounter Care Teams Net Repairer Relationship Specialty Start Date End Date Candi Nnuo MD [address] [place] [address] PCP - General Family Medicine 05/23/19 04/10/23 documented as of this encounter
[2025-02-17 21:38] VITALS: BP 128/84; PULSE 71; RESP 16; TEMP 36.9; O2SAT 96; BMI 29.7
--- OUTSIDE RECORDS SUMMARY | 2025-02-17 21:40 | XMS_ITS | Clinical Summary ---
Author Organization [facility] Address [address] [place] [address] Care Team Providers Care Technical Service Specialist Name Role Phone Albert Oliveros MD Primary Care Provider [phone] Allergies Active Allergy Reactions Criticality Noted Date Comments Codeine Hives 06/02/2021 Morphine Anaphylaxis High 06/02/2021 Paroxetine Mental Status Change 06/02/2021 Medications cloNIDine (CATAPRES) 0.1 MG tablet Take 0.1 mg by mouth Daily. Active ALPRAZolam (XANAX) 0.5 MG tablet Take 0.5 mg by mouth 2 (Two) Times a Day As Needed for Anxiety. Active gabapentin (NEURONTIN) 600 MG tablet Take 600 mg by mouth 4 (Four) Times a Day. Active QUEtiapine (SEROquel) 50 MG tablet Take 50 mg by mouth every night at bedtime. 06/09/2021 Active metoprolol tartrate (LOPRESSOR) 50 MG tablet Take 50 mg by mouth 2 (Two) Times a Day. 06/08/2021 Active Black Cohosh 540 MG capsule Take by mouth. Active oxyCODONE-acetam inophen (PERCOCET) 7.5-325 MG per tablet Take 1 tablet by mouth Every 8 (Eight) Hours As Needed. Active flecainide (TAMBOCOR) 50 MG tablet Take 50 mg by mouth Every 12 (Twelve) Hours. Active aspirin 81 MG EC tablet Take 81 mg by mouth Daily. Active tiZANidine (ZANAFLEX) 4 MG tablet Take 4 mg by mouth 3 (Three) Times a Day. 01/03/2022 Active Active Problems Problem Noted Date Diagnosed Date Cerebral aneurysm, nonruptured 11/17/2021 Overview (11/17/2021): Added automatically from request for surgery [id number] Anxiety 06/03/2021 Chronic back pain 06/03/2021 PSVT (paroxysmal supraventricular tachycardia) 1 08/03/2020 Overview (06/03/2021): Echo 03/2021: Mildly enlarged left atrium, normal LV systolic function. EF 55% with no regional wall motion abnormalities. Trace MR/TR. RVSP 32 mmHg. Event recorder 03-24 to : Sinus rhythm with rare PVCs. Majority of symptoms correlated with sinus rhythm a few with sinus tachycardia ROSETTE (obstructive sleep apnea) 06/03/2021 STEVAN (generalized anxiety disorder) 06/02/2021 Depression 06/02/2021 Essential hypertension 06/02/2021 Family history of ovarian cancer 03/19/2020 History of ovarian cyst 03/19/2020 MDD (major depressive disord er), recurrent episode, moderate 04/02/2019 Trigger ring finger of right hand 02/27/2019 Carpal tunnel syndrome of right wrist 04/03/2018 HNP (herniated nucleus pulposus), cervical 09/04 Abnormal mammogram 03/19/2014 Atrial fibrillation Stroke Resolved Problems Problem Noted Date Diagnosed Date Resolved Date Acute chest pain 06/04/2021 06/04/2021 Syncope and collapse 06/03/2021 021 Elevated troponin 06/02/2021 06/04/2021 Overview (06/03/2021): MPS 03/2021: No evidence of reversible ischemia EF 48% no regional wall motion abnormalities. LHC 06-01-21: Angiographically normal coronary arteries, EF 65%. Screening for colon cancer 06/17/2019 1 08/03/2020 Family History Medical History Relation Name Comments Heart attack Maternal Aunt Heart disease Maternal Aunt Heart attack Maternal Grandmother Heart disease Maternal Grandmother Heart attack Maternal Uncle Heart disease Maternal Uncle Pancreatic cancer Mother Relation Name Status Comments Maternal Aunt Maternal Grandmother Maternal Uncle Mother Social History Tobacco Use Types Packs/Day Years Used Date Smoking Tobacco: Never Smokeless Tobacco: Never Alcohol Use Standard Drinks/Week Comments Yes 0 (1 standard drink = 0.6 oz pur e alcohol) once every other month AUDIT-C Answer Date Recorded Q1: How often do you have a drink containing alc ohol? Monthly or less 12/09/2021 Q2: How many drinks containi ng alcohol do you have on a typical day when you are drinking? 1 or 2 12/09/2021 Q3: How often do you have si x or more drinks on one occasion? Never 12/09/2021 Abuse Screen Answer Date Recorded Unsafe at Home or Work/School Not on file Feels Threatened by Someone? Not on file Does Anyone Keep You from Co ntacting Others or Doint Things Outside the Home? Not on file 05/12/2023 Physical Sign of Abuse Present Not on file 1 Housing Stability Answer Date Recorded Current Living Arrangements Not on file 04/30 Potentially Unsafe Housing Conditions Not on ginger e 05/12/2023 Family and Community Support Answer Donnie e Recorded Help with Day-to-Day Activities Not on file 05/12/2023 Lonely or Isolated Not on file 05/12/2023 Employment Answer Date Recorded Do you want help finding or keeping work or a shelley b? Not on file 05/12/2023 Disabilities Answer Date Recorded Concentrating, Remembering, or Making Decisions Difficulty Not on file 05/12/2023 Doing Errands Independently Difficulty Not on fi le 05/12/2023 Education Answer Date Recorded Help with school or training? Not on file Preferred Language Not on file 05/12/2023 Comments No Sex and Gender Information Value Date Recorded Sex Assigned at Not on file Legal Sex Female 7:39 PM EDT Gender Identity Not on file Sexual Orientation Not on file Last Filed Vital Signs Vital Sign Reading Time Taken Comments Blood Pressure 130/80 03/14/2022 12:09 PM EDT left arm sitting 120/80 Pulse 57 03/14/2022 12:09 PM EDT Temperature 36.6 C (97.8 F) 03/14/2022 12:09 PM EDT Respiratory Rate 18 12/10/2021 8:00 AM EDT Oxygen Saturation 99% 03/14/2022 12: 09 PM EDT Inhaled Oxygen Concentration - - Weight 70.9 kg (156 lb 3.2 oz) 03/14/2022 12:09 PM EDT Height 170.2 cm (5' 7 ) 03/14/2022 12:0 9 PM EDT Body Mass Index 24.46 03/14/2022 12:09 PM EDT Plan of Treatment Health Maintenance Due Date Last Done Comments Annual Gynecologic Pelvic an d Breast Exam 1965 TDAP/TD VACCINES (1 - Tdap) 1986 COLOGUARD 01/10/2012 COLON CANCER SCREENING 5 YEA R SIGMOIDOSCOPY 01/10/2012 COLONOSCOPY 01/10/2012 COLORECTAL CANCER SCREENING 01/10/2012 CT COLONOGRAPHY 01/10/2012 FECAL OCCULT BLOOD TEST 01/10/2012 FIT Testing (1 year) 01/10/2012 ZOSTER VACCINE (1 of 2) 2017 MAMMOGRAM 01/26/2018 01/27/2016, 04/13/2012 Pneumococcal Vaccine 50+ (2 of 2 - PCV) 05/23/2020 05/23/2019 ANNUAL WELLNESS VISIT 07/06/2021 03/19/2020 HEPATITIS C SCREENING 07/06/2021 COVID-19 Vaccine (1 - 2023-2 5 season) 2024 INFLUENZA VACCINE 04/30/2025 05/23/2019, , 08/18/2016, Additional history exists Medical Devices Implanted Type Area Ergonomics Technician Device Identifier Shelf Expiration Date Model / Serial / Lot Stent Mason/Divr Surpassevolve Ds 5x15/5.2mm - [id number] Implanted:Qty: 1 on 12/09/2021 by Car Ledezma MD at [facility] Implant DESIREE KEVEN 11/19/2022 [id number] Insurance SHEA WISDOM [id number] [facility] DUAL COMPLETE MEDIC [facility] MEDICAID Advance Directives * CPR (Attempt to Resuscitate) (Latest Code Status on File) Date Activated Date Inactivated Comments 12/10/2021 10:14 AM Question Answer Comments Code Status (Patient has no pulse and is not breathing): CPR (Attempt to Resuscitate) Medical Interventions (Patie nt has pulse or is breathing): Full Support Level Of Support Discussed With: Patient * CPR (Attempt to Resuscitate) Date Activated Date Inactivated Comments 06/02/2021 11:49 PM 06/04/2021 7:11 PM Question Answer Comments Code Status (Patient has no pulse and is not breathing): CPR (Attempt to Resuscitate) Medical Interventions (Patie nt has pulse or is breathing): Full Support Level Of Support Discussed With: Patient Care Teams Technical Service Specialist Relationship Specialty Start Date End Date Albert Oliveros MD [facility] [address] ATTN: [place] [address] PCP - General Emergency Medicine 06/02/21
--- OUTSIDE RECORDS SUMMARY | 2025-02-17 21:40 | XMS_ITS | Data Portability ---
Author Organization [facility] Address [address] [place] [address] Care Team Providers Care Mate Relief Name Role Phone CORAL SCHNEIDER Referring Provider Assessment No assessment recorded. Plan of Treatment Reminders Order Date Submit Date Provider Last Modified By Organization Details Last Modified Time Details Appointments None record ed. Lab None record ed. Referral None record ed. Procedures None record ed. Surgeries None record ed. Imaging None record ed. Medication Orders None record ed. Patient TargetsNo targets recorded. Patient InstructionsNo instructions recorded. Reason for Referral None Reported. Problems Name Problem SNOMED Code Status Onset Date Resolution Date Notes Provider Name and Address Organization Details Recorded Time Hypertensive disorder 44236996 Active Danielle Lori null, [facility] 14:37:14 Insomnia 516824491 Active Danielle Lori null, [facility] 14:39:35 Depressive disorder 94530417 [facility] Aneurysm 925460136 Active Danielle Lori null, [facility] 4 14:40:09 Degenerative disorder 179162053 Active Danielle Lori null, [facility] 14:41:35 Arthritis 4318729 Active Danielle Lori null, [facility] 14:42:09 Anxiety 60620062 Active Danielle Lori null, [facility] 14:42:24 Cyst of ovary 08743097 [facility] 14:[facility] Chronic pain syndrome 745177957 Active 2023 Anna Salazar, [employer] [address], [place], [address] , [place] - [facility] 4 15:22:24 Problem Notes None recorded. Procedures Surgical History Date Name Laterality Status Provider Name and Address Organization Details Recorded Time 8 Brain surgery completed Danielle Sandoval [place] - [facility] 09/14/2023 14:19:15 6 Back Surgery completed Danielle VALDIVIA - [facility] 09/14/2023 14:19:14 6 Hysterectomy completed Danielle VALDIVIA - [facility] 09/14/2023 14:19:14 9 Colposcopy completed Danielle VALDIVIA [facility] 09/14/2023 14:18:42 Stress test completed Danielle Sandoval [place] - [facility] 09/14/2023 14:19:14 Imaging Results None recorded. Procedure Notes None recorded. Medical Equipment None Reported. Allergies Allergen ID Allergen Name Allergen Category Reaction Reaction Severity Criticality Documentation Date Start Date Code Code System Note Provider Name and Address Organization Details Recorded Time 022202 morphine medicatio n rash Not available high 09/14/2023 7052 RxNorm Danielle gonzalez, [place] - [facility] 4 14:31:30 430639 codeine medicatio n rash Not available high 09/14/2023 2670 RxNorm Danielle gonzalez, [place] - [facility] 4 14:31:48 811886 Paxil medicatio n rash Not available [facility] 09/14/2023 63508 8 RxNorm Danielle gonzalez, [facility] [place] 4 14:32:02 Medications Name Sig Start Date Stop Date Status Note LastModified by Organization Details LastModified Time carvedilol 25 mg tablet TAKE ONE TABLET BY MOUTH TWICE DAILY --TAKE WITH FOOD-- 09/14 completed Not Available Not Available Not Available clonidine HCl 0.1 mg tablet TAKE ONE TABLET BY MOUTH EVERY DAY AT BEDTIME 09/14 completed Not Available Not Available Not Available gabapentin 600 mg tablet TAKE ONE TABLET BY MOUTH FOUR TIMES DAILY MAY CAUSE DROWSINES S 09/14 completed Not Available Not Available Not Available tizanidine 2 mg tablet TAKE TWO TABLETS BY MOUTH THREE TIMES DAILY MAY CAUSE DROWSINES S 09/14 completed Not Available Not Available Not Available azithromyci n 250 mg tablet TAKE 2 TABLETS BY MOUTH ON DAY 1, THEN TAKE 1 TABLET DAILY ON DAYS 2-5 09/14 completed Not Available Not Available Not Available alprazolam 1 mg tablet TAKE ONE TABLET BY MOUTH THREE TIMES DAILY NEEDED FOR anxiety MAY CAUSE DROWSINES S active Not Available Not Available No t Available tizanidine 4 mg tablet TAKE TWO CAPSULES BY MOUTH THREE TIMES DAILY NEEDED FOR MUSCLE SPASMS active Not Available Not Available No t Available metoprolol succinate ER 50 mg tablet,exte nded release 24 hr Take 1 tablet every day by oral route for 30 days. active Not Available Not Available No t Available rizatriptan 10 mg tablet TAKE ONE TABLET BY MOUTH AT ONSET of HEADACHE; if no RELIEF you MAY TAKE ONE TABLET AFTER AT least 2 hours; Max DOSE is 3 tablets PER day active Not Available Not Available No t Available omeprazole 40 mg capsule,del ayed release TAKE ONE CAPSULE BY MOUTH EVERY DAY active Not Available Not Available No t Available tramadol 50 mg tablet TAKE ONE TABLET BY MOUTH EVERY 8 HOURS NEEDED FOR PAIN MAY CAUSE DROWSINES S 09/14 completed Not Available Not Available Not Available quetiapine 100 mg tablet TAKE ONE TABLET BY MOUTH EVERY DAY AT BEDTIME 09/14 completed Not Available Not Available Not Available alprazolam 0.5 mg tablet TAKE ONE TABLET BY MOUTH THREE TIMES DAILY FOR ANXIETY MAY CAUSE DROWSINES S 09/14 completed Not Available Not Available Not Available amitriptyli ne 25 mg tablet TAKE ONE TABLET BY MOUTH EVERY DAY AT BEDTIME active Not Available Not Available No t Available oxycodone-a cetaminophe n 10 mg-325 mg tablet TAKE 1 TABLET BY MOUTH EVERY 6 HOURS NEEDED FOR PAIN active Not Available Not Available No t Available gabapentin 800 mg tablet TAKE ONE TABLET BY MOUTH THREE TIMES DAILY MAY CAUSE DROWSINES S active Not Available Not Available No t Available flecainide 50 mg tablet TAKE ONE TABLET BY MOUTH TWICE DAILY FOR heart health active Not Available Not Available No t Available metoprolol tartrate 50 mg tablet TAKE ONE TABLET BY MOUTH TWICE DAILY FOR HIGH BLOOD PRESSURE 09/14 completed Not Available Not Available Not Available hydrochloro thiazide 25 mg tablet TAKE ONE TABLET BY MOUTH EVERY DAY check blood pressure AT home regularly 09/14 completed Not Available Not Available Not Available levofloxaci n 500 mg tablet TAKE ONE TABLET BY MOUTH EVERY DAY -- FINISH ALL MEDICINE -- 09/14 completed Not Available Not Available Not Available methylpredn isolone 4 mg tablets in a dose pack TAKE ACCORDING TO PACKAGE INSTRUCTI ONS --TAKE WITH FOOD-- -- FINISH ALL MEDICINE -- 09/14 completed Not Available Not Available Not Available albuterol sulfate HFA 90 mcg/actuati on aerosol inhaler INHALE TWO PUFFS BY MOUTH EVERY 8 HOURS NEEDED FOR SHORTNESS OF BREATH OR WHEEZING active Not Available Not Available No t Available fluticasone propionate 50 mcg/actuati on nasal spray,suspe nsion INSTILL 2 SPRAYS IN EACH NOSTRIL EVERY DAY active Not Available Not Available No t Available amoxicillin 875 mg-amanda m clavulanate 125 mg tablet TAKE ONE TABLET BY MOUTH TWICE DAILY FOR 10 DAYS -- FINISH ALL MEDICINE -- 09/14 completed Not Available Not Available Not Available ciprofloxac in 0.3 %-dexametha sone 0.1 % ear drops,suspe nsion instill 4 drops into THE affected ear(s) TWICE DAILY FOR 7 DAYS 09/14 completed Not Available Not Available Not Available duloxetine 30 mg capsule,del ayed release TAKE ONE CAPSULE BY MOUTH EVERY DAY 09/14 completed Not Available Not Available Not Available quetiapine 50 mg tablet TAKE ONE TABLET BY MOUTH EVERY DAY AT BEDTIME 09/14 completed Not Available Not Available Not Available Vitals Date Recorded Body height Body mass index (BMI) Body weight Body temperature Heart rate Oxygen saturation Oxygen saturation in Arterial blood by Pulse oximetry Respiratory rate Systolic And Diastolic Provider Name and Address Organization Details Last Updated DateTime 4 172.72 cm 25.9 kg/m2 01288.8 g 97.1 [degF] 93 /min 96 % 96 % 18 /min 118/70 mm[Hg] Danielle Sandoval [place] - [facility] 14:28:09 Social History Question Answer Notes LastModified by Organizat ion Details LastModified Time Tobacco Smoking Status Former Smoker Danielle gonzalez, [place] - [facility] 09/14/2023 14:19:14 Do You Have An Advance Directive? No Information not available 09/14/2023 Is Blood Transfusion Acceptable In An Emergency? Yes Information not available 09/14/2023 What Is Your Level Of Caffeine Consumption? Heavy Information not available 09/14/2023 How Much Tobacco Do You Chew? None Information not available 09/14/2023 Are You Deaf Or Do You Have Serious Difficulty Hearing? No Information not available 09/14/2023 What Type Of Diet Are You Following? REGULAR Information not available 09/14/2023 Which Illicit Or Recreational Drugs Have You Used? Pot Information not available 09/14/2023 What Is The Highest Grade Or Level Of School You Have Completed Or The Highest Degree You Have Received? [id number] Information not available 09/14/2023 When Did You Quit Smoking? 16+yearssince lastcigarette Information not available 09/14/2023 How Many Years Have You Used Illicit Or Recreational Drugs? 6 Information not available 09/14/2023 What Was The Date Of Your Most Recent Tobacco Screening? 09/14/2023 Information not available 09/14/2023 How Many Children Do You Have? 2 Information not available 09/14/2023 Do You Use Protection Against STDs? No Information not available 09/14/2023 What Is Your Relationship Status? Domestic Partner Information not available 09/14/2023 Do You Use Your Seat Belt Or Car Seat Routinely? Yes Information not available 09/14/2023 Are You Sexually Active? Yes Information not available 09/14/2023 Do You Have Smoke And Carbon Monoxide Detectors In Your Home? Yes Information not available 09/14/2023 At What Age Did You Start Smoking Tobacco? 17 Information not available 09/14/2023 Are You Passively Exposed To Smoke? No Information no t available 09/14/2023 Do You Use Sunscreen Routinely? No Information not available 09/14/2023 Sex: Female Functional Status Question Answer Note LastModified by Organizat ion Details LastModified Time Do you use any illicit or recreational drugs? No Information not available 09/14/2023 What is your level of alcohol consumption? None Information not available 09/14/2023 Do you or have you ever used smokeless tobacco? Never used smokeless tobacco Information not available 09/14/2023 Are you currently employed? No Information not available 09/14/2023 Are you able to care for yourself? Yes Information not available 09/14/2023 Do you or have you ever used e-cigarettes or vape? Never used electronic cigarettes Information not available 09/14/2023 What is your exercise level? Occasional Information not available 09/14/2023 Mental Status Question Answer Note LastModified by Organization D etails LastModified Time Do you feel stressed (tense, restless, nervous, or anxious, or unable to sleep at night)? [id number] Information not available 09/14/2023 Family History Relationship Description Onset Age of this Age Resolved Age Notes LastModified by Organization Details LastModified Time Mother Depressive disorder [email or web address] Not available 2023 14:18:34 Mother Malignant neoplastic disease [email or web address] Not available 2023 14:18:34 Mother Arthritis cbuckler Not availabl e 09/14/2023 14:18:34 Maternal Grandmother Harmful pattern of use of alcohol cbuckler Not available 2023 14:18:34 Maternal Grandmother Hypertensive disorder cbuckler Not available 2023 14:18:34 Maternal Grandmother Heart disease 62 cbuckler Not available 2023 14:18:34 Unspecified Relation Malignant tumor of cervix cbuckler Not available 2023 14:18:34 Father Malignant neoplasm of lung cbuckler Not available 2023 14:18:34 Medical History Condition Response Heart Problems Y Depression Y Anemia Y Constipation Y Ovarian Cyst Y Anxiety Disorder Y Muscle, Joint, or Bone Problems Y Degenerative Disc Disease Y Arthritis Y Insomnia Y Endometriosis Y Sleep Apnea Y Aneurysm Y Heart Disease Y Headaches Y Hypertension Y Gynecological History Statement/Question Response Abnormal Pap Y Date of Last Mammogram Date of LMP 07/31/1995 Post Menopausal Bleeding N STIs/STDs N Colposcopy 07/31/1988 HPV Vaccine N Current Control Method Hysterectom y Age at Menarche 13 Age at First Child 20 If Post Menopausal, Age at Menopause 52 Date of Last Colonoscopy Sexually Active? Y Menses Monthly N Date of Last Pap Smear Sexual Problems? N Hormone Replacement Therapy N Obstetrics History GPAL:G 2 P 0 0 0 1 Type Value Living 1 Total 2 Immunizations Vaccine Type Date Status Note Provider Nam e and Address Organization Details Recorded Time Influenza, split virus, quadrivalent, preservative 7 completed Danielle Lori null, [facility] [place] 09/14/2023 14:29:09 Influenza, split virus, quadrivalent, preservative 7 completed Danielle Lori null, [facility] [place] [facility] 09/14/2023 14:29:09 Influenza, split virus, quadrivalent, preservative 5 completed Danielle Lori null, [facility] [place] [facility] 09/14/2023 14:29:09 Influenza, recombinant, quadrivalent, PF 9 completed Danielle Lori null, [facility] [place] [facility] 09/14/2023 14:29:09 pneumococcal polysaccharide PPV23 9 completed Danielle Lori null, [facility] [place] [facility] 09/14/2023 14:29:09 Influenza, split virus, quadrivalent, PF 0 completed Danielle Lori null, [facility] [place] [facility] 09/14/2023 14:29:09 Influenza, split virus, quadrivalent, PF 1 completed Danielle Lori null, [facility] [place] [facility] 09/14/2023 14:29:09 Influenza, split virus, quadrivalent, PF 2 completed Danielle Lori null, [facility] [place] [facility] 09/14/2023 14:29:09 Past Encounters Encounter ID Performer Location Encounter Start Date Encounter Closed Date Diagnosis/Indication Diagnosis SNOMED-CT Code Diagnosis ICD10 Code Diagnosis Note [id number] Anna Salazar APRN [address] [address] 09/14/2023 14:04:39 09/14/2023 15:13:33 Hypertensive disorder 93145892 I10 Depressive disorder 0148 9007 F32.A Degenerative disorder 36 5651813 R69 Chronic pain syndrome 37 0627137 G89.4 explained pt pt I can not write percocet but could refer to pain management or decrease her to norco and pt states norco does not help and she does not want to go to pain management ,states she will continue to see her old pcp for now. Aneurysm 712338532 I72.9 Anxiety 13560691 F41.9 pt states she will remain with her current pcp Dr V[facility] Concerns Section Related Observation LastModified by Organization Detai ls LastModified Time None Recorded Concern Status LastModified by Organization Details LastModified Time None Recorded Advance Directives Directive N: Payers Insurance Date Sequence Insurance Name Policy Number Policy Bates Covered Member ID Bates Member ID Guarantor Name 11/08/2023 1 [employer] - DUAL COMPLETE (MEDICARE REPLACEMENT/ ADVANTAGE - HMO) [id number] Sheryl Dunlap [id number] Sheryl Dunlap Notes Date Note Type Note Provider Name and Address Organization Details Recorded Time 09/14/2023 text/html 58 yr old female presents to establish care. pt reports chronic back/neck pain, anxiety,htn,depr ession and insomnia. Anna Salazar, [employer] [address], [place], [address], [place] - [facility] 09/14/2023 15:26:58 OBGyn Episode No OBEpisode recorded.
--- OUTSIDE RECORDS SUMMARY | 2025-02-17 21:41 | XMS_ITS | Encounter Summary ---
Author Organization Healthcare Address [address] [place] [address] Care Team Providers Care Machine [employer] Name Role Phone Alexx Madrid MD Primary Care Provider [phone] Harjinder Lora DO Primary Care Provider Encounter Details Date Type Department Care Team (Late st Contact Info) Description 05/28/2021 Community [facility] [address] [place] [address] [place], [place] [address] [place], [place] [id number] Chronic joint pain (Primary Dx) Social History [...] unspecified documented in this encounter Care Teams Machine [employer] Relationship Specialty [place] [address] [place] [phone] PCP - General 12/11/20 06/17/21 Harjinder Lora DO [address] [place] [address] PCP - General 02/19/24 documented as of this encounter
--- OUTSIDE RECORDS SUMMARY | 2025-02-17 21:41 | XMS_ITS | Continuity of Care Document ---
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 [facility] [address] [place] [address] Syed Walker MD SHOULDER ARTHROSCOPY ROTATOR CUFF REPAIR/SUBACROMIAL DECOMPRESSION/MUMFOR D/BICEP TENODESIS 12/07/2012 6:20 AM EDT - 12/07/2012 11:45 AM EDT Hospital Encounter [facility] [facility] [place] [address] Syed Walker MD Discharge Disposition: Home or Self Care 11/09/2012 1:59 PM EDT - 11/09/2012 11:59 PM EDT Hospital Encounter [facility] MRI [address] [place] [address] Syed Lynn, DPM Pain in joint, shoulder region; Superior glenoid labrum lesion Discharge Disposition: Home or Self Care 10/25/2012 Telephone [facility] [address] [place] [address] Ashley Argueta, A Other 10/04/2012 Telephone [facility] [address] [place] [address] Roxy Almanzar, A Other 10/01/2012 11:38 AM EST - 10/01/2012 11:59 PM EST Hospital Encounter [facility] MRI [address] [place], [place] [id number] Mingo Gilman MD Lumbago Discharge Disposition: Home or Self Care 09/27/2012 Telephone [facility] [address] [place] [address] Hunt, Viral V, DO Results 09/24/2012 3:23 PM EST - 09/24/2012 11:59 PM EST Hospital Encounter [facility] [address] [place] [address] Hunt, Viral V, DO Left shoulder strain; Left shoulder pain; Frozen shoulder Discharge Disposition: Home or Self Care 09/18/2012 8:20 AM EST Office Visit [facility] [address] [place] [address] Hunt, Viral V, DO Anxiety (Primary Dx); Depression; Acute sinusitis; Left shoulder strain; Left shoulder pain; Frozen shoulder; DDD (degenerative disc disease); Cauda equina syndrome (HCC) 09/17/2012 Telephone [facility] [address] [place] [address] Hunt, Viral V, DO Referral 05/03/2012 Telephone [facility] [place] [address] [place] [address] Lucita Feng RN Abnormal Radiology 04/19/2012 Telephone [facility] [address] [place] [address] Kylie Duran, Clerical Staff Abnormal Radiology 04/13/2012 10:15 AM EDT Hospital Encounter [facility] Mammography [address] [place] [address] Hunt, Viral V, DO Other screening mammogram Discharge Disposition: Home or Self Care 04/13/2012 10:16 AM EDT - 04/13/2012 11:59 PM EDT Hospital Encounter [facility] CT [address] [place] [address] Hunt, Viral V, DO Abdominal mass Discharge Disposition: Home or Self Care 04/09/[address] [address] Hunt, Viral V, DO Referral 04/09/2012 11:10 AM EDT Office Visit [facility] [address] [place] [address] Hunt, Viral V, DO Abdominal mass (Primary Dx); Need for influenza vaccination; Other screening mammogram; Muscle spasm 03/08/2012 Telephone [facility] [address] [place] [address] Bouchra Teague RMA Medication Problem 03/08/2012 3:20 PM EDT Office Visit [address] [address] Hunt, Viral V, DO Anxiety; Depression; Chronic back pain; Fracture of right foot 03/05/2012 6:39 PM EDT - 03/05/2012 8:12 PM EDT Emergency [facility] [address] [place] [address] Staci Espino MD Contusion, foot; Fracture of phalanx of toe Discharge Disposition: Home or Self Care 12/29/2011 1:47 PM EDT - 12/29/2011 11:59 PM EDT Hospital Encounter [facility] MRI [address] [place] [id number] Maggi Chi MD Neck pain Discharge Disposition: Home or Self Care 12/29/2011 1:46 PM EDT Hospital Encounter [address] [place] [address] Maggi Chi MD Lumbar back pain Discharge Disposition: Home or Self Care 12/29/2011 1:46 PM EDT Hospital Encounter [address] [place] [address] Maggi Chi MD Back pain, thoracic Discharge Disposition: Home or Self Care 12/22/2011 11:22 AM EDT - 12/22/2011 11:59 PM EDT Hospital Encounter [address] [place] [address] Maggi Chi MD Headaches, cluster Discharge Disposition: Home or Self Care 12/22/2011 11:06 AM EDT - 12/22/2011 11:21 AM EDT Hospital Encounter [address] [place] [address] Maggi Chi MD Menopausal disorder Discharge Disposition: Home or Self Care Allergies Active Allergy Reactions Criticality Noted Date Comments Morphine Anaphylaxis High 03/05/2012 Codeine Itching 03/05/2012 Paroxetine Hcl Other (See Comments) 03/05/2012 SUICIDAL THOUGHTS Citalopram Other (See Comments) SUICIDAL THOUGHTS Medications doxepin (SINEQUAN) 10 mg Oral CapsuleIndicati ons:anxiety Take 10 mg by mouth nightly. Active VENTOLIN HFA 90 mcg/actuation Inhl HFA Aerosol InhalerIndicati ons:Nocturnal asthma Inhale 2 Puffs into the lungs every 4 hours as needed for Wheezing. 18 g 9 Active buPROPion (WELLBUTRIN XL) 150 mg Oral Tablet Sustained Release 24 hrIndications:M DD (major depressive disorder), recurrent episode, moderate (HCC) Take 1 Tab by mouth every morning. 30 Tab 5 9 Active sodium,potassiu m,mag sulfates 17.5-3.13-1.6 gram Oral Recon Soln Take 6 oz by mouth 2 times daily. SUPREP: Take as prescribed by doctor's office 1 box 9 Active pseudoephedrine -guaiFENesin (MUCINEX D) 60-600 mg Oral Tablet Sustained Release 12 hrIndications:C ough Take 1 Tab by mouth every 12 hours as needed for Congestion. 20 Tab 0 Active promethazine-de xtromethorphan (PROMETHAZINE-D M) 6.25-15 mg/5 mL Oral SyrupIndication s:Cough Take 5 mL by mouth nightly as needed. 100 mL 0 Active amoxicillin-cla vulanate (AUGMENTIN) 875-125 mg Oral Tablet TAKE ONE TABLET BY MOUTH EVERY 12 HOURS FOR 10 DAYS 20 Tab 0 Active sertraline (ZOLOFT) 100 mg Oral Tablet Take 2 Tabs by mouth nightly. 30 Tab 2 0 Active cloNIDine (CATAPRES) 0.1 mg Oral TabletIndicatio ns:Hot flashes TAKE 1 TABLET BY MOUTH ONCE NIGHTLY TO PREVENT HOT FLASHES 30 Tablet 10 1 Active tiZANidine (ZANAFLEX) 4 mg Oral TabletIndicatio ns:Chronic bilateral low back pain without sciatica TAKE 1 TABLET BY MOUTH THREE TIMES A DAY 90 Tablet 10 1 Active hydrOXYzine (ATARAX) 25 mg Oral Tablet TAKE 1 TABLET BY MOUTH THREE TIMES DAILY NEEDED FOR ANXIETY 90 Tablet 10 2 Active Active Problems Patient Care Coordination No te Formatting of this note migh t be different from the original. Sheryl does want to use [facility] 08/09/17 CSTA-08/22/17 [place] 08/22/17 UDS 12/18/17 Problem Noted Date Diagnosed Date History of ovarian cyst 03/19/2020 Family history of ovarian cancer 03/19/2020 Screening for colon cancer 06/17/2019 Overview (06/17/2019): Added automatically from request for surgery [id number] MDD (major depressive disord er), recurrent episode, moderate 04/02/2019 Trigger ring finger of right hand 02/27/2019 Carpal tunnel syndrome of right wrist 04/03/2018 HNP (herniated nucleus pulposus), cervical 09/04 Abnormal mammogram 03/19/2014 Anxiety Chronic back pain Resolved Problems Problem Noted Date Diagnosed Date Resolved Date Essential hypertension 06/09/201705/23 Depression 04/02/2019 Overview (04/02/2019): More specific condition on problem list Immunizations Immunization Administration Dates Next Due Influenza Vaccine Quadrivalent 06/09/2017,2016,07/14/2015 Influenza Vaccine, Unspecified Formulation 04/09 Influenza Virus Vaccine Quad rivalant, Flublok 05/23/2019 Pneumococcal Polysaccharide 23 Valent 05/23/2019 Family History Medical History Relation Name Comments Anesth Problems Neg Hx Social History Smoking Status as of 02/17/2025 Tobacco Use Types Packs/Day Years Used Date Smoking Tobacco: Never Assessed PHQ-2 Answer Date Recorded PHQ-2 Score 0 12/25/2018 Sex and Gender Information Value Date Recorded Sex Assigned at Not on file Legal Sex Female 4:16 AM EDT Gender Identity Not on file Sexual Orientation Not on file Last Filed Vital Signs Vital Sign Reading Time Taken Comments Blood Pressure 126/76 03/19/2020 2:02 PM EDT Pulse 74 02/28/2019 9:17 AM EDT Temperature 36.6 C (97.9 F) 03/19/2020 2:02 PM EDT Respiratory Rate 16 02/28/2019 9:17 AM EDT Oxygen Saturation 97% 02/28/2019 9:17 AM EDT Inhaled Oxygen Concentration - - Weight 77.6 kg (171 lb) 03/19/2020 2:02 PM EDT Height 170.2 cm (5' 7 ) 03/19/2020 2:02 PM EDT Body Mass Index 26.78 03/19/2020 2:02 PM EDT Plan of Treatment Not on file Medical Devices Implanted Type Area Inspector Eyeglass Frames Device Identifier Shelf Expiration Date Model / Serial / Lot Screw Tenodesis Biocomposite 7mm X 10mm - [id number] Implanted:Qty: 1 on 12/07/2012 by Syed Walker MD at [facility] Left: Arm ARTHREX 11/27/2014 AR-1670BC / +[id number] / Screw Tenodesis Biocomposite 7mm X 10mm - [id number] Implanted:Qty: 1 on 12/07/2012 by Syed Walker MD at [facility] Left: Arm ARTHREX 11/27/2014 AR-1670BC / +[id number] / Putty I-Factor 1.0cc Syringe - [id number] Implanted:Qty: 1 on 09/04/2017 by Harjinder Cain MD at [facility] N/A: Spine Cervical CERAPEDICS 05/30/2020 700-010 / / [id number] Plate Bone Ambassador L18 Mm Spine 1 Level Nonsterile - [id number] Implanted:Qty: 1 on 09/04/2017 by Harjinder Cain MD at [facility] NA: Spine Cervical PARADIGM [employer] SolutionsEVSENSIMED 05- / / Screw Variable Self Drilling/Tapping 4.0x14mm - [id number] Implanted:Qty: 4 on 09/04/2017 by Harjinder Cain MD at [facility] N/A: Spine Cervical PARADIGM [employer] 05- / / Spacer Cervical Stealth 14 X 16 X 7 6 Degree - [id number] Implanted:Qty: 1 on 09/04/2017 by Harjinder Cain MD at [facility] NA: Spine Cervical PARADIGM [employer]EVSENSIMED [id number] / / Procedures Procedure Name Priority Date/Time Associated Diagnosis Comments CA 125 Routine 03/19/2020 2:52 PM EDT Pelvic pain History of ovarian cyst Ovarian cancer screening Family history of ovarian cancer TSH REFLEX TO FT4 Routine 03/19/2020 2:5 2 PM EDT Generalized abdominal pain Chronic fatigue LIPASE LEVEL Routine 03/19/2020 2:52 PM EDT Generalized abdominal pain Diarrhea, unspecified type AMYLASE LEVEL Routine 03/19/2020 2:52 PM EDT Generalized abdominal pain COMPREHENSIVE METABOLIC PANEL Routine 03/19/2020 2:52 PM EDT Generalized abdominal pain CBC WITH DIFF Routine 03/19/2020 2:52 PM EDT Generalized abdominal pain SEP URINALYSIS POC Routine 03/19/2020 2: 51 PM EDT Generalized abdominal pain MRI BRAIN ATTN PITUITARY W WO CONTRAST Routine 10/25/2019 8:49 AM EDT Headache, unspecified headache type History of pituitary adenoma History of falling Worsening headaches URINE CULTURE (NO STAIN) Routine 10/16/2019 8:30 AM EDT UTI (urinary tract infection), uncomplicated POCT URINALYSIS AUTOMATED Routine 10/16/2019 8:28 AM EDT UTI (urinary tract infection), uncomplicated XR SHOULDER LEFT 4 VIEWS Routine 06/18/2019 12:06 PM EST Acute pain of left shoulder HEMOGLOBIN A1C Routine 05/23/2019 3:34 PM EDT Hypercholesteremia Hot flashes VITAMIN B12/ FOLIC ACID Routine 05/23/2019 3:34 PM EDT Hypercholesteremia Hot flashes TSH REFLEX TO FT4 Routine 05/23/2019 3:3 4 PM EDT Hypercholesteremia Hot flashes LIPID SCREEN Routine 05/23/2019 3:34 PM EDT Hypercholesteremia COMPREHENSIVE METABOLIC PANEL Routine 05/23/2019 3:34 PM EDT Hypercholesteremia Hot flashes CBC WITH DIFF Routine 05/23/2019 3:34 PM EDT Hypercholesteremia Hot flashes POCT URINALYSIS AUTOMATED Routine 05/23/2019 3:19 PM EDT Hot flashes MRI THORACIC SPINE WO CONTRAST Routine 05/14/2019 8:40 AM EDT Hyperreflexic Urinary incontinence, unspecified type MRI LUMBAR SPINE WO CONTRAST STAT 04/23/2019 3:48 PM EDT Low back pain, unspecified back pain laterality, unspecified chronicity, unspecified whether sciatica present Urinary incontinence, unspecified type MRI CERVICAL SPINE WO CONTRAST STAT 04/23/2019 3:30 PM EDT Neck pain Status post cervical spinal fusion TRIGGER FINGER RELEASE- REPAIR OR A 1 DARCY RELEASE 02/28/2019 9:05 AM EDT Trigger ring finger of right hand Special Needs 02/22/19 kf HB-1 CUSTOM UDS PANEL-QUEST Routine 12/25/2018 10:40 PM EDT Polypharmacy LIPID SCREEN Routine 12/25/2018 9:21 AM EDT HNP (herniated nucleus pulposus), cervical Lethargy Hypercholesteremia COMPREHENSIVE METABOLIC PANEL Routine 12/25/2018 9:21 AM EDT HNP (herniated nucleus pulposus), cervical Lethargy CBC WITH DIFF Routine 12/25/2018 9:21 AM EDT HNP (herniated nucleus pulposus), cervical Lethargy THYROID STIMULATING HORMONE Routine 12/25/2018 9:21 AM EDT HNP (herniated nucleus pulposus), cervical Lethargy T4, FREE (THYROXINE) Routine 12/25/2018 9:21 AM EDT HNP (herniated nucleus pulposus), cervical Lethargy INTRAOP AIRWAY PLACEMENT Routine 04/03/2018 3:25 PM EDT CARPAL TUNNEL RELEASE 04/03/2018 3:19 PM EDT Right carpal tunnel syndrome Special Needs FOREARM TOURNIQUET EMG Routine 02/21/2018 4:16 PM EDT Radiculopathy of cervical region MRI CERVICAL SPINE WO CONTRAST Routine 2018 10:02 AM EDT Cervicalgia DDD (degenerative disc disease), cervical HB-1 CUSTOM UDS PANEL-QUEST Routine 12/18/2017 11:16 PM EDT Encounter for long-term (current) use of high-risk medication SCANNED RHYTHM STRIPS 09/06/2017 9:57 PM EST XR CERVICAL SPINE AP AND LATERAL MARQUISE 09/04/2017 1:36 PM EST FL < 1 HOUR MARQUISE 09/04/2017 1:36 PM EST INTRAOP AIRWAY PLACEMENT Routine 09/04/2017 11:31 AM EST ANTERIOR CERVICAL DISCECTOMY FUSION/BONE BANK/ATLANTIS PLATING 09/04/2017 11:19 AM EST HNP (herniated nucleus pulposus), cervical Special Needs NO ILIAC CREST BONE GRAFT, CHOICE CAGE OR Vg2 BONE AND PLATE, EVOKES #[id number], OR TABLE / OTHER, ASSIST, FLUOROReps notified-DT MRI CERVICAL SPINE WO CONTRAST Routine 08/31/2017 8:27 AM EST Cervicalgia BASIC METABOLIC PANEL Routine 08/31/2017 7:49 AM EST Chronic bilateral low back pain without sciatica Pre-op examination CBC WITH DIFF Routine 08/31/2017 7:49 AM EST Chronic bilateral low back pain without sciatica Pre-op examination VITAMIN D 25 HYDROXY Routine 08/31/2017 7:49 AM EST Vitamin D deficiency LIPID SCREEN Routine 08/31/2017 7:49 AM EST History of pituitary adenoma Essential hypertension T4, FREE (THYROXINE) Routine 08/31/2017 7:49 AM EST Vasovagal syncope History of pituitary adenoma THYROID STIMULATING HORMONE Routine 08/31/2017 7:49 AM EST Vasovagal syncope History of pituitary adenoma CBC WITH DIFF Routine 08/29/2017 9:33 AM EST Vasovagal syncope History of pituitary adenoma COMPREHENSIVE METABOLIC PANEL Routine 08/29/2017 9:33 AM EST Vasovagal syncope BB HISTORY CHECK Routine 08/29/2017 9:32 AM EST Preop testing SURGERY DATE Routine 08/29/2017 9:32 AM EST Preop testing ANTIBODY SCREEN IGG Routine 08/29/2017 9 :32 AM EST Preop testing ABORH Routine 08/29/2017 9:32 AM EST Preop testing PREADMISSION TYPE AND SCREEN Routine 08/29/2017 9:32 AM EST Preop testing VITAMIN D 25 HYDROXY Routine 08/29/2017 9:32 AM EST Vitamin D deficiency STAPHYLOCOCCUS AUREUS SCREEN Routine 08/29/2017 9:32 AM EST POCT EKG Routine 06/09/2017 2:39 PM EST Vasovagal syncope IR CERVICAL/THORACIC ELIEZER WITH GUIDANCE Routine 04/20/2017 9:52 AM EDT Cervical radiculopathy MRI CERVICAL SPINE WO CONTRAST Routine 02/06/2017 9:33 AM EDT Cervical spondylosis without myelopathy XR CERVICAL SPINE AP LATERAL ODONTOID AND OBLIQUE STAT 01/12/2017 12:34 PM EDT Neck pain XR CLAVICLE RIGHT MARQUISE 12/02/2016 2:4 2 PM EDT XR LUMBAR SPINE AP AND LATERAL MARQUISE 12/02/2016 2:41 PM EDT XR CHEST PA AND LATERAL MARQUISE 12/02/2016 2:38 PM EDT MM MAMMO DIGITAL DIAGNOSTIC W CAD BILAT Routine 01/27/2016 12:26 PM EDT Abnormal mammogram Menopausal syndrome (hot flashes) US PELVIS AND TRANSVAGINAL NON OB COMPLETE Routine 01/27/2016 11:58 AM EDT Abdominal pain, RLQ (right lower quadrant) URINE CULTURE (NO STAIN) Routine 01/20/2016 1:38 PM EDT Abdominal pain, RLQ (right lower quadrant) POCT URINALYSIS AUTOMATED Routine 01/15/2016 10:47 AM EDT Abdominal pain, RLQ (right lower quadrant) XR LUMBAR SPINE AP LATERAL AND OBLIQUES Routine 05/21/2014 7:17 PM EDT Lumbar strain, sequela POCT URINALYSIS AUTOMATED Routine 04/29/2014 8:54 AM EDT Enuresis SCANNED ANESTHESIA FORMS 12/11/2012 4:09 AM EDT SHOULDER ARTHROSCOPY ROTATOR CUFF REPAIR/SUBACROMIAL DECOMPRESSION/MUMFOR D/BICEP TENODESIS 12/07/2012 8:45 AM EDT Osteoarthritis,loca lized, primary,lower leg Other affections of shoulder region, not elsewhere classified Nontraumatic rupture of other tendon Special Needs CPT;[id number] MRI SHOULDER LEFT WO CONTRAST Routine 11/09/2012 2:37 PM EDT Pain in joint, shoulder region Superior glenoid labrum lesion MRI LUMBAR SPINE WO CONTRAST Routine 10/01/2012 12:44 PM EST Lumbago XR SHOULDER LEFT 4 VIEWS Routine 09/24/2012 3:39 PM EST Left shoulder strain Left shoulder pain Frozen shoulder MM OUTSIDE FILMS FOR COMPARISON Today 04/18/2012 12:40 PM EDT MM OUTSIDE FILMS FOR COMPARISON Today 04/18/2012 12:40 PM EDT MM OUTSIDE FILMS FOR COMPARISON Today 04/18/2012 12:[address] ABDOMEN PELVIS W CONTRAST Routine 04/13/2012 11:12 AM EDT Abdominal mass MM MAMMO DIGITAL SCREENING W CAD BILAT Routine 04/13/2012 10:50 AM EDT Other screening mammogram XR FOOT RIGHT AP LATERAL AND OBLIQUE MARQUISE 03/05/2012 7:10 PM EDT MRI LUMBAR SPINE WO CONTRAST Routine 12/29/2011 3:11 PM EDT Lumbar back pain MRI THORACIC SPINE WO CONTRAST Routine 12/29/2011 2:49 PM EDT Back pain, thoracic MRI CERVICAL SPINE WO CONTRAST Routine 12/29/2011 2:18 PM EDT Neck pain DX BONE DENSITY AXIAL SKELETON Routine 12/22/2011 12:40 PM EDT Menopausal disorder MRI BRAIN WO CONTRAST Routine 12/22/2011 12:05 PM EDT Headaches, cluster Results * TSH REFLEX (03/19/2020 2:52 PM EDT) Only the most recent of2 resultswithin the time period is included. TSH Reflex 1.680 0.270 - 4.200 mcIU/mL 03/19/2020 7:23 PM EDT [facility] Blood VENOUS BLOOD / Unknown Venipuncture / Unknown 03/19/2020 2:52 PM EDT 03/19/2020 2:52 PM EDT Narrative [facility] - 03/19/2020 7:23 PM EDT Ingestion of caterina doses of biotin (>5 mg/day) taken within 8 hours of drawing blood sample can interfere with this immunoassay test. us Candi Nuno MD CHEMISTRY ORDERABLES Final Res ult [facility] [address] [facility] , [place] [address] * CBC WITH DIFF (03/19/2020 2:52 PM EDT) Only the most recent of5 resultswithin the time period is included. WBC 6.4 3.7 - 10.3 x10(3)/mcL 03/19/2020 7:04 PM EDT [facility] RBC 4.70 3.90 - 5.20 x10(6)/mcL 03/19/2020 7:04 PM EDT [facility] Hgb 12.9 11.2 - 15.7 g/dL 03/19/2020 7:04 PM EDT [facility] Hct 40.7 34.0 - 45.0 % 03/19/2020 7:04 PM EDT [facility] MCV 86.6 80.0 - 100.0 fL 03/19/2020 7:04 PM EDT [facility] MCH 27.4 26.0 - 34.0 pg 03/19/2020 7:04 PM EDT [facility] MCHC 31.7 30.7 - 35.5 g/dL 03/19/2020 7:04 PM EDT [facility] RDW 13.0 <=14.9 % 03/19/2020 7:04 PM EDT [facility] Platelet 318 155 - 369 x10(3)/mcL 03/19/2020 7:04 PM EDT [facility] MPV 10.4 8.8 - 12.5 fL 03/19/2020 7:04 PM EDT [facility] Neut Percent 46.9 % 03/19/2020 7:04 PM EDT [facility] Comment:Neutrophils equals s egs plus bands Imm Gran% 0.2 % 03/19/2020 7:04 PM EDT [facility] Comment:Automated count of m etamyelocytes, myelocytes and promyelocytes. Lymph Percent 43.9 % 03/19/2020 7:04 PM EDT [facility] [place] Percent 9.0 % 03/19/2020 7:04 PM EDT [facility] Eos Percent 0.0 % 03/19/2020 7:04 PM EDT [facility] Baso Percent 0.0 % 03/19/2020 7:04 PM EDT [facility] Neut # 3.0 1.6 - 6.1 x10(3)/mcL 03/19/2020 7:04 PM EDT [facility] Comment:Neutrophils equals s egs plus bands IMMGRAN# 0.0 0.0 - 0.1 x10(3)/mcL 03/19/2020 7:04 PM EDT [facility] Comment:Automated count of m etamyelocytes, myelocytes and promyelocytes. An absolute IG <0.1 is reported as 0.0. Lymph # 2.8 1.2 - 3.9 x10(3)/mcL 03/19/2020 7:04 PM EDT [facility], [facility] [place] # 0.6 0.3 - 0.9 x10(3)/mcL 03/19/2020 7:04 PM EDT [facility], [facility] Eos# 0.0 0.0 - 0.5 x10(3)/mcL 03/19/2020 7:04 PM EDT [facility], [facility] Baso # 0.0 0.0 - 0.1 x10(3)/mcL 03/19/2020 7:04 PM EDT [facility] [employer], [facility] Blood VENOUS BLOOD / Unknown Venipuncture / Unknown 03/19/2020 2:52 PM EDT 03/19/2020 2:52 PM EDT us Candi Nuno MD HEMATOLOGY ORDERABLES Final Re sult Performing Organization Address [facility] de Phone Number [facility] [employer] [facility] [address] , [place] [address] * CA 125 (03/19/2020 2:52 PM EDT) [facility] Ca 125 9.3 0.0 - 35.0 unit/mL 03/19/2020 7:55 PM EDT [facility] [employer], [facility] Comment:[facility] uses the Sharma Bunch Breaker Machine Operator CA125 II assay, which is intended to be used as an aid in monitoring response to therapy for patients with epithelial ovarian cancer. This assay should not be used as a cancer screening test. Values obtained with different assay methods should not be used interchangeably. Blood VENOUS BLOOD / Unknown Venipuncture / Unknown 03/19/2020 2:52 PM EDT 03/19/2020 2:52 PM EDT us Candi Nuno MD CHEMISTRY ORDERABLES Final Res ult Performing Organization Address [facility] Co de Phone Number [facility] [employer], [facility] [address] , [place] [phone] * LIPASE LEVEL (03/19/2020 2:52 PM EDT) Lipase Lvl 19 13 - 60 U/L 03/19/2020 7:23 PM EDT [facility] Blood VENOUS BLOOD / Unknown Venipuncture / Unknown 03/19/2020 2:52 PM EDT 03/19/2020 2:52 PM EDT us Candi Nuno MD CHEMISTRY ORDERABLES Final Res ult Performing Organization Address [facility]/ZIP Co de Phone Number [facility], [facility] [address] [facility] , [place] [address] * AMYLASE LEVEL (03/19/2020 2:52 PM EDT) Amylase Lvl 66 28 - 100 U/L 03/19/2020 7:23 PM EDT [facility] Blood VENOUS BLOOD / Unknown Venipuncture / Unknown 03/19/2020 2:52 PM EDT 03/19/2020 2:52 PM EDT us Candi Nuno MD CHEMISTRY ORDERABLES Final Res ult Performing Organization Address [facility] Co de Phone Number [facility], [facility] [address] [facility] , [place] [address] * (ABNORMAL) COMPREHENSIVE METABOLIC PANEL (03/19/2020 2:52 PM EDT) Only the most recent of4 resultswithin the time period is included. Sodium 140 136 - 145 mmol/L 03/19/2020 7:23 PM EDT [facility] Potassium 4.3 3.5 - 5.0 mmol/L 03/19/2020 7:23 PM EDT [facility] Chloride 99 98 - 107 mmol/L 03/19/2020 7:23 PM EDT [facility] Total CO2 28 22 - 29 mmol/L 03/19/2020 7:23 PM EDT [facility] Anion Gap 13 7 - 16 mmol/L 03/19/2020 7:23 PM EDT [facility], [facility] Calcium 9.9 8.6 - 10.4 mg/dL 03/19/2020 7:23 PM EDT [facility], [facility] Glucose Lvl 72(L) 74 - 100 mg/dL 03/19/2020 7:23 PM EDT [facility], [facility] BUN 10 6 - 20 mg/dL 03/19/2020 7:23 PM EDT [facility], [facility] Creatinine 1.04 0.51 - 1.30 mg/dL 03/19/2020 7:23 PM EDT [facility], [facility] Albumin 4.8 3.5 - 5.2 gm/dL 03/19/2020 7:23 PM EDT [facility], [facility] Total Protein 6.9 6.4 - 8.3 gm/dL 03/19/2020 7:23 PM EDT [facility], [facility] Bili Total 0.3 0.1 - 1.3 mg/dL 03/19/2020 7:23 PM EDT [facility], [facility] ALT 9 <=41 U/L 03/19/2020 7:23 PM EDT [facility], [facility] AST 20 <=40 U/L 03/19/2020 7:23 PM EDT [facility], [facility] Alk Phos 94 36 - 123 U/L 03/19/2020 7:23 PM EDT [facility], [facility] GFR Afr Am 71 >=60 mL/min/1.7 3 m2 03/19/2020 7:23 PM EDT [facility] GFR Non Afr Am 61 >=60 mL/min/1.7 3 m2 03/19/2020 7:23 PM EDT [facility] Comment: This estimated GFR was calculated using CKD-EPI equation which is modified based on ethnicity for Non Americans and Americans. Both results are reported since it is not always possible to determine the patient's ethnicity. This equation should only be used for individuals 18 and older. It has not been validated for use with the elderly (>70 years), women, or in some racial or ethnic subgroups, such as Hispanics. The equation will be less accurate in people with differences in nutritional status or muscle mass. Blood VENOUS BLOOD / Unknown Venipuncture / Unknown 03/19/2020 2:52 PM EDT 03/19/2020 2:52 PM EDT us Candi Nuno MD CHEMISTRY ORDERABLES Final Res ult [facility] [employer], [employer] [address] [place] [address] [facility] [address] [place], [place] [id number] * SEP URINALYSIS POC (03/19/2020 2:51 PM EDT) [facility] Signature UA Color POC Yellow 03/19/2020 2:53 PM EDT [facility] [place] UA Appear POC Clear Clear 03/19/2020 2:53 PM EDT [facility] [place] UA Gluc POC Negative Negative mg/dL 03/19/2020 2:53 PM EDT [facility] [place] UA Bili POC Negative Negative 03/19/2020 2:53 PM EDT [facility] [place] UA Ketones POC Negative Negative mg/dL 03/19/2020 2:53 PM EDT [facility] [place] UA SG POC 1.010 1.001 - 1.035 03/19/2020 2:53 PM EDT [facility] [place] UA Blood POC Negative Negative 03/19/2020 2:53 PM EDT [facility] [place] UA pH POC 6.0 5.0 - 8.0 03/19/2020 2:53 PM EDT [facility] [place] UA Protein POC Negative Negative mg/dL 03/19/2020 2:53 PM EDT [facility] [place] UA Urobilinogen POC 0.2 0.2, 1.0 03/19/2020 2:53 PM EDT [facility] [place] UA Nitrite POC Negative Negative 03/19/2020 2:53 PM EDT [facility] [place] UA Leuk Est POC Negative Negative 0 2:53 PM EDT [facility] [place] Urine STRUCTURE OF URINARY TRACT PROPER / Unknown 03/19/2020 2:51 PM EDT 03/19/2020 2:53 PM EDT us Candi Nuno MD POINT OF CARE TEST ORDERABLES Final Result Performing Organization Address City/[facility]/ZIP Co de Phone Number [facility] [address] [place] [phone] * MRI BRAIN ATTN PITUITARY W WO CONTRAST (10/25/2019 8:49 AM EDT) Anatomical Region Laterality Modality Magnetic Resonan ce 10/25/2019 8:49 AM EDT Impressions 10/25/2019 9:25 AM EDT No pituitary mass lesion or acute intracranial abnormality is identified. Sinus inflammatory changes are present. - Narrative 10/25/2019 9:25 AM EDT MRI BRAIN ATTN PITUITARY W WO CONTRAST 10/25/2019 8:49 AM CLINICAL HISTORY: History of pituitary surgery in 1997. Headaches. Memory loss. COMPARISON: MRI brain from December 22, 2011. PROCEDURE COMMENTS: Multiplanar sequences obtained with and without 15 mL MultiHance. Sequences include thin section precontrast and dynamic post contrast coronal T1 images through the sella. FINDINGS: Mild motion degradation of the study is present. No evidence of recurrent pituitary tumor. The sella appears partially empty. No evidence of acute stroke, hemorrhage, or mass lesion. No midline shift or herniation. Major vascular flow voids at the base of the brain are patent. Sinus inflammatory changes include RIGHT maxillary sinus mucosal thickening with fluid level, and a few opacified ethmoid air cells. No aggressive features. Procedure Note Jarad Castillo MD - 10/25/2019 MRI BRAIN ATTN PITUITARY W WO CONTRAST 10/25/2019 8:49 AM CLINICAL HISTORY: History of pituitary surgery in 1997. Headaches. Memoryloss. COMPARISON: MRI brain from December 22, 2011. PROCEDURE COMMENTS: Multiplanar sequences obtained with and without 15mL MultiHance. Sequences include thin section precontrast and dynamic postcontrast coronal T1 images through the sella. FINDINGS: Mild motion degradation of the study is present. No evidence of recurrent pituitary tumor. The sella appears partiallyempty. No evidence of acute stroke, hemorrhage, or mass lesion. No midline shiftor herniation. Major vascular flow voids at the base of the brain are patent. Sinus inflammatory changes include RIGHT maxillary sinus mucosalthickening with fluid level, and a few opacified ethmoid air cells. No aggressivefeatures. IMPRESSION: No pituitary mass lesion or acute intracranial abnormality is identified. Sinus inflammatory changes are present. - Candi Nuno MD [facility] MRI ORDERABLES Final Resul t * (ABNORMAL) URINE CULTURE (NO STAIN) (10/16/2019 8:30 AM EDT) Only the most recent of2 resultswithin the time period is included. Culture Positive Growth(A) 10/18/2019 6:53 AM EDT [facility] [employer], [facility] Culture [id number] CFU/mL Escherichia coli SUSCEPTIBI LITY RESULT 10/18/2019 6:53 AM EDT [facility] [employer] [facility] Urine URINE SPECIMEN COLLECTION, CLEAN CATCH / Unknown 10/16/2019 8:30 AM EDT 10/16/2019 8:30 AM EDT Narrative Organism Antibiotic Method Susceptibility Escherichia coli Ampicillin SUSCEPTIBILITY RESULT >=32 ug/mL: Resistant Escherichia coli Ampicillin/Sulbactam SUSCEPTIBILITY R ESULT 16 ug/mL: Intermediate Escherichia coli Cefazolin SUSCEPTIBILITY RESULT <=4 ug/mL: Susceptible Escherichia coli Cefepime SUSCEPTIBILITY RESULT Escherichia coli Cefoxitin SUSCEPTIBILITY RESULT <=4 ug/mL: Susceptible Escherichia coli Ceftazidime SUSCEPTIBILITY RESULT Escherichia coli Ceftriaxone SUSCEPTIBILITY RESULT Escherichia coli Ciprofloxacin SUSCEPTIBILITY RESULT <=0.25 ug/mL: Susceptible Escherichia coli ESBL SUSCEPTIBILITY RESULT Escherichia coli Ertapenem SUSCEPTIBILITY RESULT <=0.5 ug/mL: Susceptible Escherichia coli Gentamicin SUSCEPTIBILITY RESULT >=16 ug/mL: Resistant Escherichia coli Imipenem SUSCEPTIBILITY RESULT <=0.25 ug/mL: Susceptible Escherichia coli Levofloxacin SUSCEPTIBILITY RESULT <=0.12 ug/mL: Susceptible Escherichia coli Nitrofurantoin SUSCEPTIBILITY RESULT <=16 ug/mL: Susceptible Escherichia coli Piperacillin/Tazobactam SUSCEPTIBILIT Y RESULT <=4 ug/mL: Susceptible Escherichia coli Tobramycin SUSCEPTIBILITY RESULT 8 ug/mL: Intermediate Escherichia coli Trimethoprim/Sulfame tho xazole SUSCEPTIBILITY RESULT <=20 ug/mL: Susceptible us Candi Nuno MD MICROBIOLOGY - GENERAL ORDERAB LES Final Result [facility] [employer] [address] , [address] [place] [phone] * POCT URINALYSIS AUTOMATED (10/16/2019 8:28 AM EDT) Only the most recent of4 resultswithin the time period is included. 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 Anatomical Region Laterality Modality Shoulder Radiographic Betty ging 06/18/2019 12:0 6 PM EST Impressions 06/18/2019 3:44 PM EST 1. No acute finding. 2. Postsurgical changes of both acromioclavicular joint and proximal humerus. - - Narrative 06/18/2019 3:44 PM EST XR SHOULDER LEFT 4 VIEWS: 06/18/2019 12:06 PM CLINICAL HISTORY: M25.512-Pain in left [id number]-EMR-75-CM COMPARISON: 09/24/2012 PROCEDURE COMMENTS: Routine views. FINDINGS: Glenohumeral joint is normal. Acromioclavicular joint is wider than before with a more narrowed distal clavicle contour suggestive of interval surgery. A small target-like defect of central lucency and peripheral sclerosis in proximal humeral shaft has characteristic appearance of a low biceps tenodesis/repair. It was not present previously. Low cervical ACDF also noted. Procedure Note Lilly Collier MD - 06/18/2019 XR SHOULDER LEFT 4 VIEWS: 06/18/2019 12:06 PM CLINICAL HISTORY: M25.512-Pain in left [id number]-CM COMPARISON: 09/24/2012 PROCEDURE COMMENTS: Routine views. FINDINGS: Glenohumeral joint is normal. Acromioclavicular joint is wider than before with a more narrowed distal clavicle contour suggestive of interval surgery. A small target-likedefect of central lucency and peripheral sclerosis in proximal humeral shaft has characteristic appearance of a low biceps tenodesis/repair. It was notpresent previously. Low cervical ACDF also noted. IMPRESSION: 1. No acute finding. 2. Postsurgical changes of both acromioclavicular joint and proximalhumerus. - - us Candi Nuno MD IMG DIAGNOSTIC IMAGING ORDERAB LES Final Result * (ABNORMAL) VITAMIN B12/ FOLIC ACID (05/23/2019 3:34 PM EDT) Vitamin B12 449 211 - 946 pg/mL 05/23/2019 8:50 PM EDT [facility] Folate >16.00(H) 4.50 - 16.00 ng/mL 05/23/2019 8:50 PM EDT [facility] Blood VENOUS BLOOD / Unknown Venipuncture / Unknown 05/23/2019 3:34 PM EDT 05/23/2019 3:34 PM EDT Narrative [facility] [employer] - 05/23/2019 8:50 PM EDT Ingestion of caterina doses of biotin (>5 mg/day) taken within 8 hours of drawing blood sample can interfere with this immunoassay test. us Candi Nuno MD CHEMISTRY ORDERABLES Final Res ult [facility] [address] , [place] [address] * HEMOGLOBIN A1C (05/23/2019 3:34 PM EDT) Hgb A1C 5.6 4.2 - 5.6 % 05/23/2019 8:38 PM EDT [facility] Est. Avg Glucose 114 mg/dL 05/23/2019 8:38 PM EDT [facility] Blood VENOUS BLOOD / Unknown Venipuncture / Unknown 05/23/2019 3:34 PM EDT 05/23/2019 3:34 PM EDT Narrative [facility] [employer] - 05/23/2019 8:38 PM EDT REFERENCE RANGE: Normal: 4.0-5.6% Pre-diabetes: 5.7-6.4% Provisional diagnosis of diabetes: >6.4% Hgb F>10% and anything which shortens red cell survival, such as hemolytic anemia, or unstable hemoglobin variants such as HbSS, HbSC, or HbCC, will lower the HbA1c value associated with a given level of glycemic control. us Candi Nuno MD CHEMISTRY ORDERABLES Final Res ult [facility] [address] [facility] , [address] [place] [phone] * LIPID SCREEN (05/23/2019 3:34 PM EDT) Only the most recent of3 resultswithin the time period is included. Cholesterol 190 <=200 mg/dL 05/23/2019 8:39 PM EDT [facility] Comment: < 200 Desirable 200 - 239 Borderline High >= 240 High Triglyceride 119 <=150 mg/dL 05/23/2019 8:39 PM EDT [facility] Comment: < 150 Normal 150 - 199 Borderline High 200 - 499 High >= 500 Very High HDL 74 >=40 mg/dL 05/23/2019 8:39 PM EDT [facility] Comment: > 60 Optimal 40 - 60 Acceptable < 40 Low LDL Calculated 92 <=100 mg/dL 05/23/2019 8:39 PM EDT [facility] Comment: < 100 Optimal 100 - 129 Near or above optimal 130 - 159 Borderline High 160 - 189 High >= 190 Very High Non-HDL-C Calculated 116 <=129 mg/dL 05/23/2019 8:39 PM EDT [facility] Comment: <130 Desirable 130-159 Above Desirable 160-189 Borderline High 190-219 High >= 220 Very High Fasting Specimen? Yes None 019 8:39 PM EDT [facility] Blood VENOUS BLOOD / Unknown Venipuncture / Unknown 05/23/2019 3:34 PM EDT 05/23/2019 3:34 PM EDT us Candi Nuno MD CHEMISTRY ORDERABLES Final Res ult [facility] [employer] [facility], [address] [place] [phone] * MRI THORACIC SPINE WO CONTRAST (05/14/2019 8:40 AM EDT) Only the most recent of2 resultswithin the time period is included. Anatomical Region Laterality Modality T-spine Magnetic Resonan ce 05/14/2019 8:40 AM EDT Impressions 05/14/2019 10:01 AM EDT No acute abnormality of the thoracic spine. - Narrative 05/14/2019 10:01 AM EDT MRI THORACIC SPINE WITHOUT CONTRAST, 05/14/2019 8:40 AM CLINICAL HISTORY: Bilateral subscapular pain. No surgery or recent injury. COMPARISON: 12/29/2011 PROCEDURE COMMENTS: Multiplanar multiecho MR imaging of the thoracic spine. Sagittal imaging of the entire thoracic spine with selected axial imaging. FINDINGS: No malalignment or concerning marrow signal abnormality. Cord signal unremarkable. Level by level analysis: No canal or foraminal narrowing at any level throughout the thoracic spine. Procedure Note Douglas Hunt MD - 05/14/2019 MRI THORACIC SPINE WITHOUT CONTRAST, 05/14/2019 8:40 AM CLINICAL HISTORY: Bilateral subscapular pain. No surgery or recentinjury. COMPARISON: 12/29/2011 PROCEDURE COMMENTS: Multiplanar multiecho MR imaging of the thoracicspine. Sagittal imaging of the entire thoracic spine with selected axial imaging. FINDINGS: No malalignment or concerning marrow signal abnormality. Cord signal unremarkable. Level by level analysis: No canal or foraminal narrowing at any levelthroughout the thoracic spine. IMPRESSION: No acute abnormality of the thoracic spine. - us Harjinder Cain MD IMG MRI ORDERABLES Final Res ult * MRI LUMBAR SPINE WO CONTRAST (04/23/2019 3:48 PM EDT) Only the most recent of3 resultswithin the time period is included. Anatomical Region Laterality Modality Spine, L-spine Magnetic Resonan ce 04/23/2019 3:48 PM EDT Impressions 04/23/2019 3:59 PM EDT No acute findings. Prior L4-5 fusion with L4-5 and L5-S1 decompressive laminectomies. There is low-grade central canal stenosis L2-3 from a combination of posterior disc bulging, facet arthritis, right greater than left, and epidural lipomatosis. Borderline low-grade central canal stenosis at L3-4 from same comminution factors with moderate narrowing of neural foramina bilaterally at L3-4. - Narrative 04/23/2019 3:59 PM EDT MRI LUMBAR SPINE WITHOUT CONTRAST, 04/23/2019 3:48 PM CLINICAL HISTORY: M54.5-Low back ogxs-VGL-87-CM O23-Mrqrvdrbacy urinary jqxwcdtvjcxp-AON-48-CM COMPARISON: Radiographs 12/02/2016. No prior MRI. PROCEDURE COMMENTS: Multiplanar multiecho MR imaging of the lumbar spine without contrast. FINDINGS: There are 5 lumbar vertebrae. Postoperative changes L4-5 gerber and pedicle screw fusion. No acute spine fracture. Normal conus position and signal. No concerning marrow replacement. Level by level analysis: L1/L2: Unremarkable. L2/L3: Disc degeneration and desiccation with mild posterior disc bulging. Bilateral facet arthritis, right worse than left. Epidural lipomatosis. There is low-grade central canal stenosis. Mild narrowing of the neural foramina. L3/L4: Disc degeneration and desiccation with posterior disc bulging. Bilateral facet arthritis. Mild epidural lipomatosis. Borderline low-grade central canal stenosis. Moderate neural foraminal narrowing bilaterally. L4/L5: Prior fusion and decompressive laminectomy. No central canal, lateral recess, neural foraminal stenosis. L5/S1: Prior decompressive laminectomy. No central canal, lateral recess, neural foraminal stenosis. Procedure Note Lc Berger MD - 04/23/2019 MRI LUMBAR SPINE WITHOUT CONTRAST, 04/23/2019 3:48 PM CLINICAL HISTORY: M54.5-Low back tcjt-GUD-18-CM J17-Dpwlormwwie urinary bmimxgrqgqnr-ZFV-44-CM COMPARISON: Radiographs 12/02/2016. No prior MRI. PROCEDURE COMMENTS: Multiplanar multiecho MR imaging of the lumbar spinewithout contrast. FINDINGS: There are 5 lumbar vertebrae. Postoperative changes L4-5 gerber and pediclescrew fusion. No acute spine fracture. Normal conus position and signal. Noconcerning marrow replacement. Level by level analysis: L1/L2: Unremarkable. L2/L3: Disc degeneration and desiccation with mild posterior discbulging. Bilateral facet arthritis, right worse than left. Epidural lipomatosis.There is low-grade central canal stenosis. Mild narrowing of the neural foramina. L3/L4: Disc degeneration and desiccation with posterior disc bulging.Bilateral facet arthritis. Mild epidural lipomatosis. Borderline low-grade centralcanal stenosis. Moderate neural foraminal narrowing bilaterally. L4/L5: Prior fusion and decompressive laminectomy. No central canal,lateral recess, neural foraminal stenosis. L5/S1: Prior decompressive laminectomy. No central canal, lateral recess,neural foraminal stenosis. IMPRESSION: No acute findings. Prior L4-5 fusion with L4-5 and L5-S1 decompressive laminectomies. There is low-grade central canal stenosisL2-3 from a combination of posterior disc bulging, facet arthritis, right greaterthan left, and epidural lipomatosis. Borderline low-grade central canalstenosis at L3-4 from same comminution factors with moderate narrowing of neuralforamina bilaterally at L3-4. - [facility] [employer]INTENAN[facility] SUPERVISOR IMG MRI ORDERABL ES Final Result * MRI CERVICAL SPINE WO CONTRAST (04/23/2019 3:30 PM EDT) Only the most recent of5 resultswithin the time period is included. Anatomical Region Laterality Modality Spine, C-spine Magnetic Resonan ce 04/23/2019 3:30 PM EDT Impressions 04/23/2019 3:45 PM EDT 1. Uncomplicated appearance of C6-C7 interbody fusion. 2. Mild noncompressive degenerative changes at C4-C5 and C5-C6 levels. - Narrative 04/23/2019 3:45 PM EDT MR CERVICAL SPINE WITHOUT CONTRAST, 04/23/2019 3:30 PM CLINICAL HISTORY: M54.8-Eyzayytqtfe-WSH-10-CM Z98.1-Arthrodesis udmcib-MPP-74-CM COMPARISON: MRI cervical spine 2018 PROCEDURE COMMENTS: Multiplanar multiecho MR imaging of the cervical spine per protocol. FINDINGS: Uncomplicated appearance of C6-C7 fusion is stable. Cord signal is normal. No central canal stenosis. Craniocervical relationships remain intact. Cord signal unremarkable. Level by level analysis: C2/C3: Unremarkable. C3/C4: Unremarkable. C4/C5: Mild posterior disc osteophyte complex formation, similar to prior study with no neural encroachment. C5/C6: Right paracentral disc bulge without neural encroachment, stable from prior study. Foramina are unremarkable. C6/C7: No recurrent or residual disc or neural encroachment at the fused segment. C7/T1: Unremarkable. Procedure Note Rick Chaudhari MD - 04/23/2019 MR CERVICAL SPINE WITHOUT CONTRAST, 04/23/2019 3:30 PM CLINICAL HISTORY: M54.6-Cpsgtikjegr-NMM-10-CM Z98.1-Arthrodesis teuveh-HXP-69-CM COMPARISON: MRI cervical spine 2018 PROCEDURE COMMENTS: Multiplanar multiecho MR imaging of the cervical spineper protocol. FINDINGS: Uncomplicated appearance of C6-C7 fusion is stable. Cord signal is normal.No central canal stenosis. Craniocervical relationships remain intact. Cord signal unremarkable. Level by level analysis: C2/C3: Unremarkable. C3/C4: Unremarkable. C4/C5: Mild posterior disc osteophyte complex formation, similar to priorstudy with no neural encroachment. C5/C6: Right paracentral disc bulge without neural encroachment, stablefrom prior study. Foramina are unremarkable. C6/C7: No recurrent or residual disc or neural encroachment at thefused segment. C7/T1: Unremarkable. IMPRESSION: 1. Uncomplicated appearance of C6-C7 interbody fusion. 2. Mild noncompressive degenerative changes at C4-C5 and C5-C6 levels. - [facility] [facility] [address] MAINTENANCE SUPERVISOR IMG MRI ORDERABL ES Final Result * (ABNORMAL) HB-1 CUSTOM UDS PANEL-QUEST (12/25/2018 10:40 PM EDT) Only the most recent of2 resultswithin the time period is included. Prescribed Drug 1 Gabapentin [facility] Prescribed Drug 2 [place](TM) [facility] Ritalinic Acid NEGATIVE <100 ng/mL [facility] Comment:See Note 1 medMATCH Ritalinic Acid CONSISTENT [facility] medMatch Comments [facility] Comment:See Note 2 Prescribed Drug 1 Gabapentin [facility] Prescribed Drug 2 [place](TM) [facility] 6-Acetylmorphine,GC/MS NEGATIVE <10 ng/mL [facility] medMATCH 6 Acetylmorphine CONSISTENT [facility] medMatch Comments [facility] Comment:See Note 2 Prescribed Drug 1 Gabapentin [facility] Prescribed Drug 2 [place](TM) [facility] Creatinine, Urine 130.1 > or = 20.0 mg/dL [facility] UA Spec Grav 1.023 > or = 1.003 [facility] UA pH 5.9 4.5 - 9.0 [facility] Oxidant NEGATIVE <200 mcg/mL [facility] Amphetamines NEGATIVE <500 ng/mL [facility] medMATCH Amphetamines CONSISTENT [facility] Barbiturates NEGATIVE <300 ng/mL [facility] medMATCH Barbiturates CONSISTENT [facility] Benzodiazepines NEGATIVE CONFIRMED <100 ng/mL [facility] ALPHAHYDROXYALPRAZOLAM NEGATIVE <25 ng/mL [facility] Comment:See Note 1 medMATCH aOH alprazolam CONSISTENT [facility] ALPHAHYDROXYMIDAZOLAM NEGATIVE <50 ng/mL [facility] Comment:See Note 1 MEDMATCH AOH MIDAZOLAM CONSISTENT [facility] ALPHAHYDROXYTRIAZOLAM-QU EST NEGATIVE <50 ng/mL [facility] Comment:See Note 1 medMATCH aOH triazolam CONSISTENT [facility] Aminoclonazepam NEGATIVE <25 ng/mL [facility] Comment:See Note 1 medMATCH Aminoclonazepam CONSISTENT [facility] Hydroxyethylflurazepam NEGATIVE <50 ng/mL [facility] Comment:See Note 1 MEDMATCH [place] ET FLURAZEPAM CONSISTENT [facility] LORAZEPAM-QUEST NEGATIVE <50 ng/mL [facility] Comment:See Note 1 medMATCH Lorazepam CONSISTENT [facility] NORDIAZEPAM-QUEST NEGATIVE <50 ng/mL [facility] Comment:See Note 1 medMATCH Nordiazepam CONSISTENT [facility] OXAZEPAM-QUEST NEGATIVE <50 ng/mL [facility] Comment:See Note 1 medMATCH Oxazepam CONSISTENT [facility] TEMAZEPAM-QUEST NEGATIVE <50 ng/mL [facility] Comment:See Note 1 medMATCH Temazepam CONSISTENT [facility] Marijuana Metabolite NEGATIVE <20 ng/mL [facility] medMATCH Marijuana Metab CONSISTENT [facility] Cocaine Metabolite POSITIVE(A) <150 ng/mL [email or web address] BENZOYLECGONINE-QUEST 124(H) <100 ng/mL [facility] Comment:See Note 1 medMATCH Benzoylecgonine INCONSISTENT (A) [facility] Methadone NEGATIVE <100 ng/mL [facility] medMATCH Methadone CONSISTENT [facility] Opiates NEGATIVE <100 ng/mL [facility] medMATCH Opiates INCONSISTENT (A) [facility] Oxycodone NEGATIVE <100 ng/mL [email or web address] medMATCH Oxycodone CONSISTENT [email or web address] Confirmation Testing Performed at: [facility] Comment: [facility], [facility] [facility], , [place] [address], Coating Engineer: ANN HOWARD MD CLIA: [id number] [facility] Comments Qu est [email or web address] Comment: See Note 2 Note 1 This test was developed and its analytical performance characteristics have been determined by [facility]. It has not been cleared or approved by the FDA. This assay has been validated pursuant to the CLIA regulations and is used for clinical purposes. Note 2 This drug testing is for medical treatment only. Analysis was performed as non-forensic testing and these results should be used only by healthcare providers to render diagnosis or treatment, or to monitor progress of medical conditions. medItsGoinOnTCH comments are: - present when drug test results may be the result of metabolism of one or more drugs or when results are inconsistent with prescribed medication(s) listed. - may be blank when drug results are consistent with prescribed medication(s) listed. For assistance with interpreting these drug results, please contact a [facility] Toxicology Specialist: [phone] ( ), M-F, 8am-6pm EST. 12/25/2018 10:4 0 PM EDT 12/26/2018 8:15 PM EDT Mingo Whatley MD [facility] ORDERABLE (NON- [facility]) Final Result Performing Organization Address City/[facility] Co de Phone Number [facility] [address] [place] [phone] [facility] [address] [place] [address] * THYROID STIMULATING HORMONE (12/25/2018 9:21 AM EDT) Only the most recent of2 resultswithin the time period is included. TSH 2.140 0.270 - 4.200 mcIU/mL 12/25/2018 2:43 PM EDT [facility] Blood Venipuncture / Unknown 12/25/2018 9:21 AM EDT 12/25/2018 9:22 AM EDT Narrative PREFERRED [facility] - 12/25/2018 2:43 PM EDT Ingestion of caterina doses of biotin (>5 mg/day) taken within 8 hours of drawing blood sample can interfere with this immunoassay test. us Mingo Whatley MD CHEMISTRY ORDERABLES Ann l Result [facility] [address] [facility] , [address] [place] [id number] * T4, FREE (THYROXINE) (12/25/2018 9:21 AM EDT) Only the most recent of2 resultswithin the time period is included. [facility] Signature Free T4 1.08 0.80 - 2.00 ng/dL 12/25/2018 2:41 PM EDT [facility] Blood Venipuncture / Unknown 12/25/2018 9:21 AM EDT 12/25/2018 9:22 AM EDT Narrative PREFERRED [facility] - 12/25/2018 2:41 PM EDT Ingestion of caterina doses of biotin (>5 mg/day) taken within 8 hours of drawing blood sample can interfere with this immunoassay test. us Mingo Whatley MD CHEMISTRY ORDERABLES Ann l Result Performing Organization Address [facility] Co de Phone Number [facility] [address] [place] [address], [place] [address] * INTRAOP AIRWAY PLACEMENT (04/03/2018 3:25 PM EDT) Narrative [facility] - 04/03/2018 3:25 PM EDT Garth Kelsey CRNA 04/03/2018 3:25 PM Intraop Airway Placement: Airway type: Nasal cannula salter Procedure Note Garth Kelsey CRNA - 04/03/2018 3:25 PM EDT Intraop Airway Placement: Airway type: Nasal cannula salter us Arnel Olsen MD [place] ANESTHESIA Final Result Performing Organization Address [facility]/ZIP Co de Phone Number [address] [address] * (ABNORMAL) EMG (02/21/2018 4:16 PM EDT) Impressions [facility] - 02/21/2018 4:16 PM EDT Abnormal electrodiagnostic study There is EMG evidence of a 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 There is no EMG evidence of a right cervical radiculopathy or plexopathy. Narrative [facility] - 02/21/2018 4:16 PM EDT Nerve conduction studies were performed on the right upper extremity. The right median motor studies showed prolonged distal latency 10.1 ms with normal amplitude and conduction velocity. The right sensory antidromic study was unobtainable. The right ulnar motor and sensory study and radial sensory study were normal. Concentric needle examination performed on the right upper extremity and cervical paraspinals showed evidence of long-duration high amplitude motor unit potentials in the right thenar muscles. The remaining muscles in the right upper extremity were normal. Special attention was paid to the C6-7 muscles and no abnormalities were noted on this study. Paraspinals were normal. See scanned table for details. us Harjinder Cain MD NEUROLOGY ORDERABLES Final R esult Performing Organization Address [facility] [place] [address] * SCANNED RHYTHM STRIPS (09/06/2017 9:57 PM EST) Anatomical Region Laterality Modality Other 09/06/2017 9:57 PM EST us Unknown Unknown IMG ECG ORDERABLES Final Result * FL < 1 HOUR (09/04/2017 1:36 PM EST) Narrative [facility] - 09/04/2017 1:37 PM EST Fluoroscopy was performed. The radiologist was not in attendance. No permanent images were obtained. This dictation is being made for record keeping purposes. us Harjinder Cain MD IMG FLUOROSCOPY ORDERABLES F inal Result Performing Organization Address [facility] Co de Phone Number PACS * XR CERVICAL SPINE AP AND LATERAL (09/04/2017 1:36 PM EST) Anatomical Region Laterality Modality C-spine Radio Fluoroscop y 09/04/2017 1:36 PM EST Impressions 09/04/2017 2:12 PM EST 1. Intraoperative documentation anterior C6-C7 ACDF. Narrative 09/04/2017 2:12 PM EST AP AND LATERAL C-SPINE INTRAOPERATIVE FLUOROSCOPIC SPOT FILMS: 09/04/2017 1:36 PM CLINICAL HISTORY: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
--- OUTSIDE RECORDS SUMMARY | 2025-02-17 21:41 | XMS_ITS | Clinical Summary ---
Author Organization [facility] Address [address] [place] [address] Care Team Providers Care Plant Taxonomist Name Role Phone GuidoHarjinder Primary Care Provider [phone] Social History Tobacco Use Types Packs/Day Years Used Date Smoking Tobacco: Never Assessed Comments Unknown Sex and Gender Information Value Date Recorded Sex Assigned at Not on file Legal Sex Female 8:28 PM EDT Gender Identity Not on file Sexual Orientation Not on file Plan of Treatment Not on file Insurance [employer] [place] [address] Care Teams Plant Taxonomist Relationship Specialty Start Date End Date Harjinder Lora DO [address] [place] [address] PCP - General 02/19/24
[2025-02-17 22:00] VITALS: BP 134/80; PULSE 81; O2SAT 95
[2025-02-17 22:30] VITALS: BP 136/77; PULSE 74
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
[2025-02-17 23:00] VITALS: BP 126/78; PULSE 76; O2SAT 90
[2025-02-17 23:20] LABS: Hematocrit 40.3 % (37.0-47.0); Hemoglobin 13.4 g/dL (12.2-16.2); Immature Granulocytes % 0.2 %; Mean Corpuscular HGB Conc 33.3 g/dL (31.8-35.4); Mean Corpuscular Hemoglobin 27.6 pg (27.0-31.2); Mean Corpuscular Volume 83.1 fl (81-99); Nucleated Red Blood Cells % 0 %; Platelet Count 434 K/mm3 (142-424); Red Blood Count 4.85 M/mm3 (4.20-5.40); Red Cell Distribution Width-SD 40.8 fL; White Blood Count 6.3 K/mm3 (4.8-10.8)
[2025-02-17] MEDS: PROCHLORPERAZINE 10MG/2ML VIAL 10 MG IV (23:29)
[2025-02-17] MEDS: ACETAMINOPHEN 500MG TAB 1000 MG PO (23:29)
[2025-02-17 23:31] VITALS: BP 132/73; PULSE 72; O2SAT 94
[2025-02-17 23:45] LABS: Activated Partial Thrombo Time 28.5 seconds (22.8-30.6); INR 0.91 (0.9-1.1); Prothrombin Time 10.2 seconds (10.1-12.5)
[2025-02-17 23:53] LABS: Albumin Level 5.1 g/dl (3.5-5.0); Chloride 90 mmol/L (98-107); Sodium 134 mmol/L (136-145)
[2025-02-17 23:56] LABS: Alanine Aminotransferase 17 U/L (12-78); Anion Gap 12.8 mEq/L (5-15); Aspartate Amino Transferase 29 U/L (14-36); Blood Urea Nitrogen 25 mg/dl (7-17); Carbon Dioxide 34 mmol/L (22.0-30.0); Creatinine Clearance Estimated 49 mL/min (50-200); Creatinine,Serum 1.70 mg/dl (0.52-1.04); Estimated Glomerular Filt Rate 31 ml/min (>60); GFR (African American) 37 ML/MIN (>60)
[2025-02-17 23:57] LABS: Albumin/Globulin Ratio 1.2 (1.1-1.8); Alkaline Phosphatase 161 U/L (38-126); Bilirubin,Total 0.8 mg/dl (0.2-1.3); Calcium 10.2 mg/dl (8.4-10.2); Globulin 4.4 g/dL (1.3-3.2); Glucose 100 mg/dl (74-100); Total Protein,Serum 9.5 g/dl (6.3-8.2)
[2025-02-18 00:01] VITALS: BP 111/73; PULSE 64; O2SAT 95
[2025-02-18 00:01] LABS: Potassium 2.8 mmoL/L (3.5-5.1)
[2025-02-18 00:16] LABS: Magnesium 2.2 mg/dl (1.6-2.3)
[2025-02-18] MEDS: POTASSIUM CHLORIDE 20MEQ TAB 60 MEQ PO (00:16)
[2025-02-18 00:30] VITALS: BP 114/71; O2SAT 95
[2025-02-18 01:40] VITALS: BP 108/66; PULSE 63; RESP 17; TEMP 36.6; O2SAT 95
== END 2025-02-18 01:42 | disposition home or self-care (01) ==
PROVIDERS: Emergency Provider Emergency Medicine; PCP Family Medicine
DX: R23.3 Spontaneous ecchymoses (principal); E87.6 Hypokalemia
CPT/HCPCS: 80053; 83735; 85025; 85610; 85730; 96365; 96366; 96375; 99284; J0780; J3480

== ENCOUNTER 2025-02-19 07:40 | Emergency (ER) | payer MEDICARE, MEDICAID, SELFPAY ==
[2025-02-19] VITALS (7 sets, daily range): BP systolic 91–125; BP diastolic 60–76; PULSE 63–84; RESP 14–18; TEMP 36.7–36.8; O2SAT 95–99; BMI 28.1
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
[2025-02-19 08:26] LABS: Hematocrit 35.6 % (37.0-47.0); Hemoglobin 11.5 g/dL (12.2-16.2); Immature Granulocytes % 0.2 %; Mean Corpuscular HGB Conc 32.3 g/dL (31.8-35.4); Mean Corpuscular Hemoglobin 27.2 pg (27.0-31.2); Mean Corpuscular Volume 84.2 fl (81-99); Nucleated Red Blood Cells % 0 %; Platelet Count 369 K/mm3 (142-424); Red Blood Count 4.23 M/mm3 (4.20-5.40); Red Cell Distribution Width-SD 41.3 fL; White Blood Count 9.6 K/mm3 (4.8-10.8)
[2025-02-19 08:31] LABS: Microscopic, Urine URINE MICROSCOPIC (MICROSCOPIC)
[2025-02-19 08:47] LABS: Alanine Aminotransferase 16 U/L (12-78); Albumin Level 4.6 g/dl (3.5-5.0); Albumin/Globulin Ratio 1.3 (1.1-1.8); Alkaline Phosphatase 147 U/L (38-126); Anion Gap 13.2 mEq/L (5-15); Aspartate Amino Transferase 28 U/L (14-36); Bilirubin,Total 0.8 mg/dl (0.2-1.3); Blood Urea Nitrogen 29 mg/dl (7-17); Calcium 9.8 mg/dl (8.4-10.2); Carbon Dioxide 28 mmol/L (22.0-30.0); Chloride 98 mmol/L (98-107); Creatinine Clearance Estimated 36 mL/min (50-200); Creatinine,Serum 2.20 mg/dl (0.52-1.04); Estimated Glomerular Filt Rate 23 ml/min (>60); GFR (African American) 28 ML/MIN (>60); Globulin 3.6 g/dL (1.3-3.2); Glucose 105 mg/dl (74-100); Magnesium 2.1 mg/dl (1.6-2.3); Phosphorous 3.8 mg/dl (2.5-4.5); Potassium 3.2 mmoL/L (3.5-5.1); Sodium 136 mmol/L (136-145); Total Protein,Serum 8.2 g/dl (6.3-8.2)
[2025-02-19 08:50] LABS: Bilirubin,Urine Negative (Negative); Glucose,Urine (UA) TRACE (Negative); Ketones,Urine TRACE (Negative); Leukocyte Esterase,Urine Negative (Negative); PH,Urine 5.0 (5.0-8.5); Protein,Urine 2+ (Negative); Specific Gravity, Urine >= 1.030 (1.005-1.030); Urobilinogen,Urine >=8.0 EU/dl (0.2)
[2025-02-19 09:29] LABS: Color,Urine Orange (Yellow)
[2025-02-19 09:34] LABS: Bacteria,Urine Trace /lpf; Hyaline Casts,Urine OCC #/lpf (0)
== END 2025-02-19 10:00 | disposition home or self-care (01) ==
PROVIDERS: Emergency Provider Emergency Medicine; PCP Family Medicine
DX: R33.8 Other retention of urine (principal); R79.89 Other specified abnormal findings of blood chemistry; E78.5 Hyperlipidemia, unspecified; I10 Essential (primary) hypertension
CPT/HCPCS: 51702; 51798; 80053; 81001; 83735; 84100; 85025; 87086; 99284

== ENCOUNTER 2025-02-20 07:31 | Day surgery (SDC) | payer MEDICARE, MEDICAID, SELFPAY ==
[2025-02-19 13:08] VITALS: BMI 28.1
[2025-02-20 09:39] VITALS: BP 100/56; PULSE 68; RESP 18; TEMP 36.2; O2SAT 95
[2025-02-20] MEDS: LACTATED RINGERS 1000ML 1,000 ML 50 ML IV (09:51)
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
--- NOTE | 2025-02-20 10:36 | HMH.PROCNOTE ---
[facility] Procedure Note Date: 02/20/25 Time: 10:42 Procedure Note:: Aborted colonoscopy/sigmoidoscopy procedure report Endoscopist: Jose Weston II, MD Referring physician: Christophe Verdin MD Date of Procedure: February 20, 2025 Equipment: Olympus [id number] adult colonoscope Sedation: MAC sedation Indication: Mrs. Dunlap is a 60-year-old female who is here for screening colonoscopy. Her last colonoscopy was with ky 26 years ago. She reports no rectal bleeding, weight loss or family history of colon cancer. She does report chronic intractable constipation. She has been on multiple bowel regimens with MiraLAX, stool softeners, fiber and more recently Linzess. Nothing works well. She has had to use stimulant laxatives. She does get bloating, gassiness and lower abdominal discomfort related to this. Procedure: Prior to the procedure, a history and physical exam was performed, and patient's medications and allergies were reviewed. The risks, benefits and alternatives of the sedation and procedure were discussed with the patient. All questions were answered and informed consent was obtained. The patient was brought to the procedure room. Patient identification and proposed procedure were verified by the physician and the nurse. The patient was placed in a left lateral decubitus position and the scope was passed under direct vision. Throughout the procedure, the patient's blood pressure, pulse, and oxygen saturations were monitored continuously. The colonoscopy was accomplished without difficulty. The patient tolerated the procedure well. Findings: On digital rectal examination there was normal rectal tone. There were no external hemorrhoids. The scope was then inserted through the anal canal into the rectum and advanced to 25 cm. There was an abundant amount of liquid brown stool impairing visualization with obvious inadequate preparation. The procedure was aborted. The visualized rectum was normal. Impression: 1. Aborted colonoscopy secondary to poor bowel preparation Plan: I would recommend repeat colonoscopy with 2-day bowel preparation plus Linzess. I do suspect the patient has outlet dysfunction constipation.
[2025-02-20 10:43] VITALS: BP 80/51; PULSE 70; RESP 18; TEMP 36.4; O2SAT 98
[2025-02-20 10:53] VITALS: BP 83/56; PULSE 67; RESP 18; O2SAT 98
[2025-02-20 11:03] VITALS: BP 92/55; PULSE 68; RESP 16; O2SAT 98
[2025-02-20 11:13] VITALS: BP 100/71; PULSE 76; RESP 18; O2SAT 96
== END 2025-02-20 11:13 | disposition home or self-care (01) ==
PROVIDERS: PCP Family Medicine; Visit Provider Internal Medicine Gastroenterology
PROC: 0DJD8ZZ Inspection of Lower Intestinal Tract, Via Natural or Artificial Opening Endoscopic (ICD-10-PCS; CPT 45378; principal; 2025-02-20 11:00)
DX: Z12.11 Encounter for screening for malignant neoplasm of colon (principal); K59.09 Other constipation; F32.9 Major depressive disorder, single episode, unspecified; E66.9 Obesity, unspecified; Z68.28 Body mass index [BMI] 28.0-28.9, adult; G47.33 Obstructive sleep apnea (adult) (pediatric); F43.10 Post-traumatic stress disorder, unspecified; I48.0 Paroxysmal atrial fibrillation; R73.03 Prediabetes; Z86.73 Personal history of transient ischemic attack (TIA), and cerebral infarction without residual deficits; Z88.5 Allergy status to narcotic agent; Z88.8 Allergy status to other drugs, medicaments and biological substances; Z79.82 Long term (current) use of aspirin; Z79.891 Long term (current) use of opiate analgesic; Z79.51 Long term (current) use of inhaled steroids; Z79.899 Other long term (current) drug therapy
CPT/HCPCS: 45378; J2003; J2704; J7120

== ENCOUNTER 2025-02-21 18:00 | Emergency (ER) | payer MEDICARE, MEDICAID, SELFPAY ==
--- OUTSIDE RECORDS SUMMARY | 2017-09-08 14:30 | XMS_ITS | Encounter Summary ---
Author Organization [place] [address] Care Team Providers Care Drywall Contractor Name Role Phone Mingo Whatley MD Primary Care Provider Un available Encounter Details Date Type Department Care Team (Latest Contact Info) Description 09/08/2017 1:30 PM [facility] Hospital Encounter [facility] Referral Lab [address] [phone] Harjinder Cain MD [address] [place] [address] Urinary tract infection Social History Tobacco Use [...] specified documented in this encounter Care Teams Drywall Contractor Relationship Specialty Start Date End Date Mingo Whatley MD PCP - General Family Medicine 09/07/17 9 documented as of this encounter
--- OUTSIDE RECORDS SUMMARY | 2020-03-16 10:53 | XMS_ITS | Encounter Summary ---
Author Organization [place] [address] Care Team Providers Care Bottling Room Worker Name Role Phone Candi Nuno MD Primary Care Provider [phone] Encounter Details Date Type Department Care Team (Latest Contact Info) Description 03/16/2020 10:53 AM EDT Hospital Encounter [facility] Referral Lab 1 [place] [address] Major depressive disorder, single episode, moderate (HCC) Social History Tobacco Use Types Packs/Day Years [...] as of this encounter Functional Status * Is the person deaf or does he/she have serious difficulty hearing? Answer Date of Assessment Author No 10/16/2019 8:25 AM EDT Raul Perez MA * Is the person blind or does he/she have serious difficulty seeing even when wearing glasses? Answer Date of Assessment Author No 10/16/2019 8:25 AM EDT Raul Perez MA * Does this person have serious difficulty walking or climbing stairs? Answer Date of Assessment Author No 10/16/2019 8:25 AM EDT Raul Perez MA * Does this person have difficulty dressing or bathing? Answer Date of Assessment Author No 10/16/2019 8:25 AM EDT Raul Perez MA * Because of a physical, mental or emotional condition, does this person have difficulty doing errands alone such as visiting a doctor's office or shopping? Answer Date of Assessment Author No 10/16/2019 8:25 AM EDT Raul Perez MA documented as of this encounter Mental Status * Because of a physical, mental or emotional condition, does this person have serious difficulty concentrating, remembering or making decisions? Answer Entry Date Author No 10/16/2019 8:25 AM EDT Raul Perez MA documented in this encounter Plan of Treatment Scheduled Orders Name Type Priority Associated Diagnoses Orde r Schedule THYROID STIMULATING HORMONE Lab Routine Major depressive disorder, single episode, moderate (HCC) ONCE for 1 Occurrences starting 03/16/2020 until 04/20/2020 VITAMIN D, 1,25-DIHYDROXY -REF LAB Lab Routine Major depressive disorder, single episode, moderate (HCC) ONCE for 1 Occurrences starting 03/16/2020 until 04/20/2020 HEPATIC FUNCTION PANEL Lab Routine Major depressive disorder, single episode, moderate (HCC) ONCE for 1 Occurrences starting 03/16/2020 until 04/20/2020 LIPID SCREEN Lab Routine Major depressive disorder, single episode, moderate (HCC) ONCE for 1 Occurrences starting 03/16/2020 until 04/20/2020 RENAL FUNCTION PANEL Lab Routine Major depressive disorder, single episode, moderate (HCC) ONCE for 1 Occurrences starting 03/16/2020 until 04/20/2020 CBC WITH DIFF Lab Routine Major depressive disorder, single episode, moderate (HCC) ONCE for 1 Occurrences starting 03/16/2020 until 04/20/2020 documented as of this encounter Goals Goal Patient Goal Type Associated Problems Recent Progress Patient-Stated? Author Blood Pressure < 140/90 Blood Pressure 126/76(2019 2:02 PM EDT) No Mingo Whatley MD Maintain a healthy diet, exercise regularly and maintain an ideal body weight General No Edith Sanchez LPN Stay Tobacco Free Lifestyle No Edith Sanchez LPN documented as of this encounter Visit Diagnoses Diagnosis Major depressive disorder, single episode, moderate (HCC) Major depressive disorder, single episode, moderate documented in this encounter Care Teams Bottling Room Worker Relationship Specialty Start Date End Date Candi Nuno MD [address] [place] [address] PCP - General Family Medicine 05/23/19 04/10/23 documented as of this encounter
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
[2025-02-21 18:41] VITALS: BP 128/78; PULSE 69; RESP 18; TEMP 36.9; O2SAT 98; BMI 28.1
--- OUTSIDE RECORDS SUMMARY | 2025-02-21 18:45 | XMS_ITS ---
Author Organization Unknown TREATMENT PLAN Planned Care Start Date Provider Encounter for Check-up [id number] [facility]
--- OUTSIDE RECORDS SUMMARY | 2025-02-21 18:45 | XMS_ITS | Continuity of Care Document ---
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 05/24/2013 Abstract [facility] [address] [facility] [place] [address] Mingo Whatley MD 12/07/2012 8:15 AM EDT - 12/07/2012 10:00 AM EDT Surgery [facility] [place] [address] Syed Walker MD SHOULDER ARTHROSCOPY ROTATOR CUFF REPAIR/SUBACROMIAL DECOMPRESSION/MUMFOR D/BICEP TENODESIS 12/07/2012 6:20 AM EDT - 12/07/2012 11:45 AM EDT Hospital Encounter [facility] [place] [address] Syed Walker MD Discharge Disposition: Home or Self Care 11/09/2012 1:59 PM EDT - 11/09/2012 11:59 PM EDT Hospital Encounter [facility] MRI [address] [place] [address] Syed Lynn, DPM Pain in joint, shoulder region; Superior glenoid labrum lesion Discharge Disposition: Home or Self Care 10/25/2012 Telephone [facility] [address] [place] [address] Ashley Argueta, A Other 10/04/2012 Telephone [facility] [address] [place] [address] Roxy Almanzar, A Other 10/01/2012 11:38 AM EST - 10/01/2012 11:59 PM EST Hospital Encounter [facility] MRI [address] [place], [place] [id number] Mingo Gilman MD Lumbago Discharge Disposition: Home or Self Care 09/27/2012 Telephone [facility] [address] [place] [address] Hunt, Viral V, DO Results 09/24/2012 3:23 PM EST - 09/24/2012 11:59 PM EST Hospital Encounter [facility] [address] [place] [address] Hunt, Viral V, DO Left shoulder strain; Left shoulder pain; Frozen shoulder Discharge Disposition: Home or Self Care 09/18/2012 8:20 AM EST Office Visit [facility] [address] [place] [address] Hunt, Viral V, DO Anxiety (Primary Dx); Depression; Acute sinusitis; Left shoulder strain; Left shoulder pain; Frozen shoulder; DDD (degenerative disc disease); Cauda equina syndrome (HCC) 09/17/2012 Telephone [facility] [address] [place] [address] Hunt, Viral V, DO Referral 05/03/2012 Telephone [facility] [place] [address] [place] [address] Lucita Feng RN Abnormal Radiology 04/19/2012 Telephone [facility] [address] [address] Kylie Duran, Clerical Staff Abnormal Radiology 04/13/2012 10:15 AM EDT Hospital Encounter [facility] Mammography [address] [place] [address] Hunt, Viral V, DO Other screening mammogram Discharge Disposition: Home or Self Care 04/13/2012 10:16 AM EDT - 04/13/2012 11:59 PM EDT Hospital Encounter [facility] CT [address] [place] [address] Hunt, Viral V, DO Abdominal mass Discharge Disposition: Home or Self Care 04/09/[address] [address] Hunt, Viral V, DO Referral 04/09/2012 11:10 AM EDT Office Visit [facility] [address] [place] [address] Hunt, Viral V, DO Abdominal mass (Primary Dx); Need for influenza vaccination; Other screening mammogram; Muscle spasm 03/08/2012 Telephone [facility] [address] [place] [address] Bouchra Teague RMA Medication Problem 03/08/2012 3:20 PM EDT Office Visit [address] [address] Hunt, Viral V, DO Anxiety; Depression; Chronic back pain; Fracture of right foot 03/05/2012 6:39 PM EDT - 03/05/2012 8:12 PM EDT Emergency [facility] [address] [place] [address] Staci Espino MD Contusion, foot; Fracture of phalanx of toe Discharge Disposition: Home or Self Care 12/29/2011 1:47 PM EDT - 12/29/2011 11:59 PM EDT Hospital Encounter [facility] MRI [address] [place] [id number] Maggi Chi MD Neck pain Discharge Disposition: Home or Self Care 12/29/2011 1:46 PM EDT Hospital Encounter [address] [place] [address] Maggi Chi MD Lumbar back pain Discharge Disposition: Home or Self Care 12/29/2011 1:46 PM EDT Hospital Encounter [address] [place] [address] Maggi Chi MD Back pain, thoracic Discharge Disposition: Home or Self Care 12/22/2011 11:22 AM EDT - 12/22/2011 11:59 PM EDT Hospital Encounter [address] [place] [address] aMggi Chi MD Headaches, cluster Discharge Disposition: Home or Self Care 12/22/2011 11:06 AM EDT - 12/22/2011 11:21 AM EDT Hospital Encounter [address] [place] [address] Maggi Chi MD Menopausal disorder Discharge Disposition: [...] the original. Sheryl does want to use [facility] 08/09/17 CSTA-08/22/17 [place] 08/22/17 UDS 12/18/17 Problem Noted Date Diagnosed Date History of ovarian cyst 03/19/2020 Family history of ovarian cancer 03/19/2020 Screening for colon cancer 06/17/2019 Overview (06/17/2019): Added automatically from request for surgery [id number] MDD (major depressive disord er), recurrent episode, [...] Hx Social History Smoking Status as of 02/21/2025 Tobacco Use Types Packs/Day Years Used Date [...] on file Medical Devices Implanted Type Area Political Reporter Device Identifier Shelf Expiration Date Model / Serial / Lot Screw Tenodesis Biocomposite 7mm X 10mm - [id number] Implanted:Qty: 1 on 12/07/2012 by Syed Walker MD at [facility] Left: Arm ARTHREX 11/27/2014 AR-1670BC / +[id number] / Screw Tenodesis Biocomposite 7mm X 10mm - [id number] Implanted:Qty: 1 on 12/07/2012 by Syed Walker MD at [facility] Left: Arm ARTHREX 11/27/2014 AR-1670BC / +[id number] / Putty I-Factor 1.0cc Syringe - [id number] Implanted:Qty: 1 on 09/04/2017 by Harjinder Cain MD at [facility] N/A: Spine Cervical CERAPEDICS 05/30/2020 700-010 / / [id number] Plate Bone Ambassador L18 Mm Spine 1 Level Nonsterile - [id number] Implanted:Qty: 1 on 09/04/2017 by Harjinder Cain MD at [facility] NA: Spine Cervical PARADIGM [employer] 05- / / Screw Variable Self Drilling/Tapping 4.0x14mm - [id number] Implanted:Qty: 4 on 09/04/2017 by Harjinder Cain MD at [facility] N/A: Spine Cervical PARADIGM [employer] 05- / / Spacer Cervical Stealth 14 X 16 X 7 6 Degree - [id number] Implanted:Qty: 1 on 09/04/2017 by Harjinder Cain MD at [facility] NA: Spine Cervical PARADIGM [employer] [id number] / / Procedures Procedure Name Priority [...] CAGE OR Vg2 BONE AND PLATE, EVOKES #[id number], OR TABLE / OTHER, ASSIST, FLUOROReps notified-DT [...] Nontraumatic rupture of other tendon Special Needs CPT;[id number] MRI SHOULDER LEFT WO CONTRAST Routine 11/09/2012 [...] - 4.200 mcIU/mL 03/19/2020 7:23 PM EDT [facility] Blood VENOUS BLOOD / Unknown Venipuncture / Unknown 03/19/2020 2:52 PM EDT 03/19/2020 2:52 PM EDT Narrative [facility] - 03/19/2020 7:23 PM EDT Ingestion of caterina doses of biotin (>5 mg/day) taken within 8 hours of drawing blood sample can interfere with this immunoassay test. us Candi Nuno MD CHEMISTRY ORDERABLES Final Res ult [facility] [address] [facility] , [place] [address] * CBC WITH DIFF (03/19/2020 2:52 PM [...] 7:04 PM EDT [facility] Terrell Percent 9.0 % 03/19/2020 7:04 PM EDT [...] - 3.9 x10(3)/mcL 03/19/2020 7:04 PM EDT [facility] [employer], [facility] Terrell # 0.6 0.3 - 0.9 x10(3)/mcL 03/19/2020 7:04 PM EDT [facility] [employer], [facility] Eos# 0.0 0.0 - 0.5 x10(3)/mcL 03/19/2020 7:04 PM EDT [facility] [employer], [facility] Baso # 0.0 0.0 - 0.1 x10(3)/mcL 03/19/2020 7:04 PM EDT [facility] [email or web address], [facility] Blood VENOUS BLOOD / Unknown Venipuncture / Unknown 03/19/2020 2:52 PM EDT 03/19/2020 2:52 PM EDT us Candi Nuno MD HEMATOLOGY ORDERABLES Final Re sult Performing Organization Address [facility] de Phone Number [facility] [employer] [facility] [address] [facility] , [place] [address] * CA 125 (03/19/2020 2:52 PM EDT) [facility] Ca 125 9.3 0.0 - 35.0 unit/mL 03/19/2020 7:55 PM EDT [facility] [employer], [facility] Comment:[facility] uses the [facility] CA125 II assay, which is intended to [...] ORDERABLES Final Res ult Performing Organization Address [facility] Co de Phone Number [facility] [email or web address], [facility] [address] [facility] , [place] [phone] * LIPASE LEVEL (03/19/2020 2:52 PM EDT) Lipase Lvl 19 13 - 60 U/L 03/19/2020 7:23 PM EDT [facility] Blood VENOUS BLOOD / Unknown Venipuncture / Unknown 03/19/2020 2:52 PM EDT 03/19/2020 2:52 PM EDT us Candi Nuno MD CHEMISTRY ORDERABLES Final Res ult Performing Organization Address [facility]/ZIP Co de Phone Number [facility] [employer], [facility] [address] [facility] , [place] [address] * AMYLASE LEVEL (03/19/2020 2:52 PM EDT) Amylase Lvl 66 28 - 100 U/L 03/19/2020 7:23 PM EDT [facility] [employer] Blood VENOUS BLOOD / Unknown Venipuncture / Unknown 03/19/2020 2:52 PM EDT 03/19/2020 2:52 PM EDT us Candi Nuno MD CHEMISTRY ORDERABLES Final Res ult Performing Organization Address [facility] Co de Phone Number [facility] [employer], [facility] [address] [facility] , [place] [address] * (ABNORMAL) COMPREHENSIVE METABOLIC PANEL [...] 03/19/2020 7:23 PM EDT [facility] Calcium 9.9 8.6 - 10.4 mg/dL 03/19/2020 7:23 PM EDT [facility] Glucose Lvl 72(L) 74 - 100 mg/dL 03/19/2020 7:23 PM EDT [facility] BUN 10 6 - 20 mg/dL 03/19/2020 7:23 PM EDT [facility] Creatinine 1.04 0.51 - 1.30 mg/dL 03/19/2020 7:23 PM EDT [facility] Albumin 4.8 3.5 - 5.2 gm/dL 03/19/2020 7:23 PM EDT [facility] Total Protein 6.9 6.4 - 8.3 gm/dL 03/19/2020 7:23 PM EDT [facility] Bili Total 0.3 0.1 - 1.3 mg/dL 03/19/2020 7:23 PM EDT [facility] ALT 9 <=41 U/L 03/19/2020 7:23 PM EDT [facility] AST 20 <=40 U/L 03/19/2020 7:23 PM EDT [facility] Alk Phos 94 36 - 123 U/L 03/19/2020 7:23 PM EDT [facility], [facility] GFR Afr Am 71 >=60 mL/min/1.7 3 m2 03/19/2020 7:23 PM EDT [facility] GFR Non Afr Am 61 >=60 mL/min/1.7 3 m2 03/19/2020 7:23 PM EDT [facility] Comment: This estimated GFR was [...] Nuno MD CHEMISTRY ORDERABLES Final Res ult [facility] [email or web address], [employer] [address] [facility] [address] [address] [place] [address] [facility] [address] [place], [place] [id number] * SEP URINALYSIS POC (03/19/2020 2:51 PM EDT) [facility] Signature UA Color POC Yellow 03/19/2020 2:53 PM EDT [facility] UA Appear POC Clear Clear 03/19/2020 2:53 PM EDT [facility] UA Gluc POC Negative Negative mg/dL 03/19/2020 2:53 PM EDT [facility] [place] UA Bili POC Negative Negative 03/19/2020 2:53 PM EDT [facility] [place] UA Ketones POC Negative Negative mg/dL 03/19/2020 2:53 PM EDT [facility] [place] UA SG POC 1.010 1.001 - 1.035 03/19/2020 2:53 PM EDT [facility] [place] UA Blood POC Negative Negative 03/19/2020 2:53 PM EDT [facility] [place] UA pH POC 6.0 5.0 - 8.0 03/19/2020 2:53 PM EDT [facility] UA Protein POC Negative Negative mg/dL 03/19/2020 2:53 PM EDT [facility] UA Urobilinogen POC 0.2 0.2, 1.0 03/19/2020 2:53 PM EDT [facility] [place] UA Nitrite POC Negative Negative 03/19/2020 2:53 PM EDT [facility] [place] UA Leuk Est POC Negative Negative 0 2:53 PM EDT [facility] Urine STRUCTURE OF URINARY TRACT PROPER / Unknown 03/19/2020 2:51 PM EDT 03/19/2020 2:53 PM EDT us Candi Nuno MD POINT OF CARE TEST ORDERABLES Final Result Performing Organization Address City/[facility]/ZIP Co de Phone Number [facility] [address] [place] [phone] * MRI BRAIN ATTN PITUITARY W WO [...] changes are present. - Candi Nuno MD [facility] MRI ORDERABLES Final Resul t * (ABNORMAL) URINE CULTURE (NO STAIN) (10/16/2019 8:30 AM EDT) Only the most recent of2 resultswithin the time period is included. Culture Positive Growth(A) 10/18/2019 6:53 AM EDT [facility] [email or web address], [facility] Culture 75167 CFU/mL Escherichia coli SUSCEPTIBI LITY RESULT 10/18/2019 6:53 AM EDT [facility] [employer] [facility] Urine URINE SPECIMEN COLLECTION, CLEAN CATCH / [...] MICROBIOLOGY - GENERAL ORDERAB LES Final Result [facility] [employer] [address] [facility] , [address] [place] [phone] * POCT URINALYSIS AUTOMATED (10/16/2019 8:28 AM EDT) Only the most recent of4 resultswithin the time period is included. Color, UA SEP OFFICE Clarity, UA SEP OFFICE Glucose, UA norm G/DL% SEP OFFICE Bilirubin, UA neg POS/NEG SEP OFFICE Ketones, UA neg POS/NEG SEP clinical account specialist Grav, UA 1.020 1.001 - 1.035 G/DL [...] Urine 10/16/2019 8:28 AM EDT us Candi Nuno MD POINT OF [...] 12:06 PM CLINICAL HISTORY: M25.512-Pain in left nvzbxmax-DDX-41-CM COMPARISON: 09/24/2012 PROCEDURE COMMENTS: Routine views. FINDINGS: [...] 12:06 PM CLINICAL HISTORY: M25.512-Pain in left gshbcish-YFP-82-CM COMPARISON: 09/24/2012 PROCEDURE COMMENTS: Routine views. FINDINGS: [...] - 946 pg/mL 05/23/2019 8:50 PM EDT [facility] Folate >16.00(H) 4.50 - 16.00 ng/mL 05/23/2019 8:50 PM EDT [facility] Blood VENOUS BLOOD / Unknown Venipuncture / Unknown 05/23/2019 3:34 PM EDT 05/23/2019 3:34 PM EDT Narrative [facility] - 05/23/2019 8:50 PM EDT Ingestion of caterina doses of biotin (>5 mg/day) taken within 8 hours of drawing blood sample can interfere with this immunoassay test. us Candi Nuno MD CHEMISTRY ORDERABLES Final Res ult [facility] [address] [facility] , [place] [address] * HEMOGLOBIN A1C (05/23/2019 3:34 PM EDT) Hgb A1C 5.6 4.2 - 5.6 % 05/23/2019 8:38 PM EDT [facility] Est. Avg Glucose 114 mg/dL 05/23/2019 8:38 PM EDT [facility] Blood VENOUS BLOOD / Unknown Venipuncture / Unknown 05/23/2019 3:34 PM EDT 05/23/2019 3:34 PM EDT Narrative [facility] - 05/23/2019 8:38 PM EDT REFERENCE RANGE: Normal: 4.0-5.6% Pre-diabetes: 5.7-6.4% Provisional diagnosis of diabetes: >6.4% Hgb F>10% and anything which shortens red cell survival, such as hemolytic anemia, or unstable hemoglobin variants such as HbSS, HbSC, or HbCC, will lower the HbA1c value associated with a given level of glycemic control. us Candi Nuno MD CHEMISTRY ORDERABLES Final Res ult [facility] [address] [facility] , [address] [place] [phone] * LIPID SCREEN (05/23/2019 3:34 PM EDT) Only the most recent of3 resultswithin the time period is included. Cholesterol 190 <=200 mg/dL 05/23/2019 8:39 PM EDT [facility] Comment: < 200 Desirable 200 - 239 Borderline High >= 240 High Triglyceride 119 <=150 mg/dL 05/23/2019 8:39 PM EDT [facility] Comment: < 150 Normal 150 - 199 Borderline High 200 - 499 High >= 500 Very High HDL 74 >=40 mg/dL 05/23/2019 8:39 PM EDT [facility] Comment: > 60 Optimal 40 - 60 Acceptable < 40 Low LDL Calculated 92 <=100 mg/dL 05/23/2019 8:39 PM EDT [facility] Comment: < 100 Optimal 100 - 129 Near or above optimal 130 - 159 Borderline High 160 - 189 High >= 190 Very High Non-HDL-C Calculated 116 <=129 mg/dL 05/23/2019 8:39 PM EDT [facility] Comment: <130 Desirable 130-159 Above Desirable 160-189 Borderline High 190-219 High >= 220 Very High Fasting Specimen? Yes None 019 8:39 PM EDT [facility] Blood VENOUS BLOOD / Unknown Venipuncture / Unknown 05/23/2019 3:34 PM EDT 05/23/2019 3:34 PM EDT us Candi Nuno MD CHEMISTRY ORDERABLES Final Res ult [facility] [employer] [facility], [address] [place] [phone] * MRI THORACIC SPINE WO CONTRAST (05/14/2019 [...] 04/23/2019 3:48 PM CLINICAL HISTORY: M54.5-Low back qzgn-FSZ-84-CM D95-Drmwyrnslwa urinary ubueceuzvpjy-FUL-03-CM COMPARISON: Radiographs 12/02/2016. No prior MRI. PROCEDURE [...] 04/23/2019 3:48 PM CLINICAL HISTORY: M54.5-Low back vpop-WMV-40-CM Y81-Miuzfczzvjq urinary zlhayjlmqjzv-NDA-48-CM COMPARISON: Radiographs 12/02/2016. No prior MRI. PROCEDURE [...] narrowing of neuralforamina bilaterally at L3-4. - [facility] [employer] G[employer] COUNSELOR IMG MRI ORDERABL ES Final Result * [...] WITHOUT CONTRAST, 04/23/2019 3:30 PM CLINICAL HISTORY: M54.0-Tizltlgjbpq-HUC-10-CM Z98.1-Arthrodesis pdjspp-PMK-73-CM COMPARISON: MRI cervical spine 2018 PROCEDURE COMMENTS: [...] WITHOUT CONTRAST, 04/23/2019 3:30 PM CLINICAL HISTORY: M54.2-Bbundprvalu-ZNK-10-CM Z98.1-Arthrodesis ehrcka-BZY-19-CM COMPARISON: MRI cervical spine 2018 PROCEDURE COMMENTS: [...] C5-C6 levels. - [facility] [employer] GUIDANCE COUNSELOR IMG MRI ORDERABL ES Final Result * (ABNORMAL) HB-1 CUSTOM UDS PANEL-[facility] (12/25/2018 10:40 PM EDT) Only the most recent of2 resultswithin the time period is included. Prescribed Drug 1 Gabapentin [facility] Prescribed Drug 2 [facility]yer(TM) [facility] Ritalinic Acid NEGATIVE <100 ng/mL [facility] Comment:See Note 1 medMATCH Ritalinic Acid CONSISTENT [facility] medMatch Comments [facility] Comment:See Note 2 Prescribed Drug 1 Gabapentin [facility] Prescribed Drug 2 Sawyer(TM) [facility] 6-Acetylmorphine,GC/MS NEGATIVE <10 ng/mL [facility] medMATCH 6 Acetylmorphine CONSISTENT [facility] medMatch Comments [facility] Comment:See Note 2 Prescribed Drug 1 Gabapentin [facility] Prescribed Drug 2 Sawyer(TM) [facility] Creatinine, Urine 130.1 > or = 20.0 mg/dL [facility] UA Spec Grav 1.023 > or = 1.003 [facility] UA pH 5.9 4.5 - 9.0 [facility] Oxidant NEGATIVE <200 mcg/mL [facility] Amphetamines NEGATIVE <500 ng/mL [facility] medMATCH Amphetamines CONSISTENT [facility] Barbiturates NEGATIVE <300 ng/mL [facility] medMATCH Barbiturates CONSISTENT [facility] Benzodiazepines NEGATIVE CONFIRMED <100 ng/mL [facility] ALPHAHYDROXYALPRAZOLAM NEGATIVE <25 ng/mL [facility] Comment:See Note 1 medMATCH aOH alprazolam CONSISTENT [facility] ALPHAHYDROXYMIDAZOLAM NEGATIVE <50 ng/mL [facility] Comment:See Note 1 MEDMATCH AOH MIDAZOLAM CONSISTENT [facility] ALPHAHYDROXYTRIAZOLAM-QU EST NEGATIVE <50 ng/mL [facility] Comment:See Note 1 medMATCH aOH triazolam CONSISTENT [facility] Aminoclonazepam NEGATIVE <25 ng/mL [facility] Comment:See Note 1 medMATCH Aminoclonazepam CONSISTENT [facility] Hydroxyethylflurazepam NEGATIVE <50 ng/mL [facility] Comment:See Note 1 MEDMATCH [place] ET FLURAZEPAM CONSISTENT [facility] LORAZEPAM-QUEST NEGATIVE <50 ng/mL [facility] Comment:See Note 1 medMATCH Lorazepam CONSISTENT [facility] NORDIAZEPAM-QUEST NEGATIVE <50 ng/mL [facility] Comment:See Note 1 medMATCH Nordiazepam CONSISTENT [facility] OXAZEPAM-QUEST NEGATIVE <50 ng/mL [facility] Comment:See Note 1 medMATCH Oxazepam CONSISTENT [facility] TEMAZEPAM-QUEST NEGATIVE <50 ng/mL [facility] Comment:See Note 1 medMATCH Temazepam CONSISTENT [facility] Marijuana Metabolite NEGATIVE <20 ng/mL [facility] medMATCH Marijuana Metab CONSISTENT [facility] Cocaine Metabolite POSITIVE(A) <150 ng/mL [facility] BENZOYLECGONINE-QUEST 124(H) <100 ng/mL [facility] Comment:See Note 1 medMATCH Benzoylecgonine INCONSISTENT (A) [facility] Methadone NEGATIVE <100 ng/mL [facility] medMATCH Methadone CONSISTENT [facility] Opiates NEGATIVE <100 ng/mL [facility] medMATCH Opiates INCONSISTENT (A) [facility] Oxycodone NEGATIVE <100 ng/mL [facility] medMATCH Oxycodone CONSISTENT [facility] Confirmation Testing Performed at: [facility] Comment: [facility], [facility], , [place] [address], Insurance Agent: ANN HOWARD MD CLIA: [id number] medMatch Comments Qu est [facility] Comment: See Note 2 Note 1 This test was developed and its analytical performance characteristics have been determined by [facility]. It has not been cleared or approved [...] or to monitor progress of medical conditions. medBioDetegoTCH comments are: - present when drug test results may be the result of metabolism of one or more drugs or when results are inconsistent with prescribed medication(s) listed. - may be blank when drug results are consistent with prescribed medication(s) listed. For assistance with interpreting these drug results, please contact a [facility] Toxicology Specialist: [phone] ( ), M-F, 8am-6pm EST. 12/25/2018 10:4 0 PM EDT 12/26/2018 8:15 PM EDT Mingo Whatley MD [facility] ORDERABLE (NON- [facility]) Final Result Performing Organization Address City/[facility] Co de Phone Number [employer] [facility] [address] [place] [phone] [facility] [address] [place] [address] * THYROID STIMULATING HORMONE (12/25/2018 9:21 AM EDT) Only the most recent of2 resultswithin the time period is included. TSH 2.140 0.270 - 4.200 mcIU/mL 12/25/2018 2:43 PM EDT [facility] Blood Venipuncture / Unknown 12/25/2018 9:21 AM EDT 12/25/2018 9:22 AM EDT Narrative PREFERRED [facility] - 12/25/2018 2:43 PM EDT Ingestion of caterina doses of biotin (>5 mg/day) taken within 8 hours of drawing blood sample can interfere with this immunoassay test. us Mingo Whatley MD CHEMISTRY ORDERABLES Ann l Result [facility] [address] [facility] , [address] [place] [id number] * T4, FREE (THYROXINE) (12/25/2018 9:21 AM EDT) Only the most recent of2 resultswithin the time period is included. [facility] Signature Free T4 1.08 0.80 - 2.00 ng/dL 12/25/2018 2:41 PM EDT [facility] Blood Venipuncture / Unknown 12/25/2018 9:21 AM EDT 12/25/2018 9:22 AM EDT Narrative PREFERRED [facility] - 12/25/2018 2:41 PM EDT Ingestion of caterina doses of biotin (>5 mg/day) taken within 8 hours of drawing blood sample can interfere with this immunoassay test. us Mingo Whatley MD CHEMISTRY ORDERABLES Ann l Result Performing Organization Address [facility] Co de Phone Number [facility] [address] [place] [address], [place] [address] * INTRAOP AIRWAY PLACEMENT (04/03/2018 3:25 PM EDT) Narrative [facility] - 04/03/2018 3:25 PM EDT Garth Kelsey CRNA 04/03/2018 3:25 PM Intraop Airway Placement: Airway type: Nasal cannula salter Procedure Note Garth Kelsey CRNA - 04/03/2018 3:25 PM EDT Intraop Airway Placement: Airway type: Nasal cannula salter us Arnel Olsen MD [place] ANESTHESIA Final Result Performing Organization Address [facility]/ZIP Co de Phone Number [address] [address] * (ABNORMAL) EMG (02/21/2018 4:16 PM EDT) Impressions [facility] - 02/21/2018 4:16 PM EDT Abnormal electrodiagnostic study There is EMG evidence of a 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 There is no EMG evidence of a right cervical radiculopathy or plexopathy. Narrative [facility] - 02/21/2018 4:16 PM EDT Nerve [...] ORDERABLES Final R esult Performing Organization Address [facility] [place] [address] * SCANNED RHYTHM STRIPS (09/06/2017 9:57 PM [...] ORDERABLES F inal Result Performing Organization Address [facility] Co de Phone Number PACS * XR [...] through 10th images document placement of anterior C5-K7fecztt plate. Total listed fluoroscopy time: 0.17 minutes. IMPRESSION: 1. Intraoperative documentation anterior C6-C7 ACDF. Harjinder Cain MD [facility]G DIAGNOSTIC IMAGING ORDER MARILEE Final Result * INTRAOP AIRWAY PLACEMENT (09/04/2017 11:31 AM EST) Narrative [facility] - 09/04/2017 11:31 AM EST Wander [...] Unchanged and Atraumatic Insertion attempts: 1 Title: DENTAL LABORATORY MANAGER Procedure Note Wander Potter CRNA - 09/04/2017 [...] Unchanged and Atraumatic Insertion attempts: 1 Title: DENTAL LABORATORY MANAGER us Pierre Webber MD [place] ANESTHESIA Final Res ult Performing Organization Address [facility] Co de Phone Number [facility] [address] [place] [address] * (ABNORMAL) VITAMIN D 25 HYDROXY (08/31/2017 7:49 AM EST) Only the most recent of2 resultswithin the time period is included. [facility] Vit D 25 OH 18.0(L) 30.0 - 120.0 ng/mL 08/31/2017 3:48 PM EST [facility] Comment: INTERPRETIVE INFORMATION: Vitamin D, [...] ORDERABLES Ann l Result Performing Organization Address [facility] Co de Phone Number [facility] [address] [place] [address] * BASIC METABOLIC PANEL (08/31/2017 7:49 AM EST) [facility] Sodium 142 136 - 145 mmol/L 08/31/2017 9:10 AM EST [facility] Potassium 4.5 3.5 - 5.0 mmol/L 08/31/2017 9:10 AM EST [facility] Chloride 106 98 - 107 mmol/L 08/31/2017 9:10 AM [facility] Total CO2 28 22 - 29 mmol/L 08/31/2017 9:10 AM [facility] Anion Gap 8 7 - 16 mmol/L 08/31/2017 9:10 AM [facility] Calcium 9.5 8.6 - 10.2 mg/dL 08/31/2017 9:10 AM [facility] Glucose Lvl 93 74 - 100 mg/dL 08/31/2017 9:10 AM [facility] BUN 19 6 - 20 mg/dL 08/31/2017 9:10 AM [facility] Creatinine 1.16 0.51 - 1.30 mg/dL 08/31/2017 9:10 AM [facility] GFR Afr Am 63 mL/min/1.7 3 m2 08/31/2017 9:10 AM [facility] GFR Non Afr Am 55 mL/min/1.7 3 m2 08/31/2017 9:10 AM [facility] Comment: GFR Afr Am and GFR [...] Whatley MD CHEMISTRY ORDERABLES Ann moya Result [facility] [address] [place] [address] * BB HISTORY CHECK (08/29/2017 9:32 AM EST) BB HISTORY CHECK (1) No Previous History 08/29/2017 10:13 AM EST [facility] Blood VENOUS BLOOD / Unknown Venipuncture / Unknown 08/29/2017 9:32 AM EST 08/29/2017 10:02 AM EST us Harjinder Cain MD BLOOD BANK ORDERABLES Final Result Performing Organization Address City/[facility] Co de Phone Number [facility] [address] [place] [address] * SURGERY DATE (08/29/2017 9:32 AM EST) Pathologist [facility] Date (1) Complete 08/29/2017 10:13 AM EST [facility] Blood VENOUS BLOOD / Unknown Venipuncture / Unknown 08/29/2017 9:32 AM EST 08/29/2017 10:02 AM EST Harjinder Cain MD BLOOD BANK ORDERABLES Final Result Performing Organization Address [facility] de Phone Number [facility] [address] [place] [address] * STAPHYLOCOCCUS AUREUS SCREEN (08/29/2017 9:32 AM EST) Pathologist [facility] Staph aureus PCR Not Detected Not Detected 08/30/2017 8:48 AM EST [facility] MRSA PCR Not Detected Not Detected 08/30/2017 8:48 AM EST [facility] Swab BOTH ANTERIOR NARES / Unknown 08/29/2017 9:32 AM EST 08/29/2017 10:02 AM EST Narrative [facility] - 08/30/2017 8:48 AM EST Staphylococcus aureus target DNA sequence is not detected. This qualitative assay is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
--- OUTSIDE RECORDS SUMMARY | 2025-02-21 18:45 | XMS_ITS | Clinical Summary ---
[facility] Address [address] [place] [address] Care Team Providers Care Telephoto Installer Name Role Phone Albert Oliveros MD Primary Care Provider [phone] Allergies Active Allergy Reactions Criticality Noted Date [...] (11/17/2021): Added automatically from request for surgery [id number] Anxiety 06/03/2021 Chronic back pain 06/03/2021 PSVT [...] history exists Medical Devices Implanted Type Area Oil Field Equipment Mechanic Supervisor Device Identifier Shelf Expiration Date Model / Serial / Lot Stent Mason/Divr Surpassevolve Ds 5x15/5.2mm - [id number] Implanted:Qty: 1 on 12/09/2021 by Car Ledezma MD at [facility] Implant DESIREE KEVEN 11/19/2022 [id number] Insurance SHEA WISDOM [id number] [facility] DUAL COMPLETE MEDIC [facility] MEDICAID Advance Directives * CPR (Attempt to [...] Of Support Discussed With: Patient Care Teams Telephoto Installer Relationship Specialty Start Date End Date Albert Oliveros MD [facility] [address] ATTN: [place] [address] PCP - General Emergency Medicine 06/02/21
--- OUTSIDE RECORDS SUMMARY | 2025-02-21 18:45 | XMS_ITS | Clinical Summary ---
Author Organization [facility] Address [address] [place] [address] Care Team Providers Care Advertising Designer Name Role Phone GuidoHarjinder Primary Care Provider [phone] Social History Tobacco Use Types Packs/Day Years Used Date Smoking Tobacco: Never Assessed Comments Unknown Sex and Gender Information Value Date Recorded Sex Assigned at Not on file Legal Sex Female 8:28 PM EDT Gender Identity Not on file Sexual Orientation Not on file Plan of Treatment Not on file Insurance [employer] MEDICARE [employer] MEDICAID Care Teams Advertising Designer Relationship Specialty Start Date End Date Harjinder Lora DO [address] [place] [address] PCP - General 02/19/24
--- OUTSIDE RECORDS SUMMARY | 2025-02-21 18:45 | XMS_ITS | Encounter Summary ---
Author Organization Healthcare Address [address] [place] [address] Care Team Providers Care Vocal Performer Name Role Phone Alexx Madrid MD Primary Care Provider [phone] Harjinder Loar DO Primary Care Provider Encounter Details Date Type Department Care Team (Late st Contact Info) Description 05/28/2021 Community [facility] [address] [place] [address] [place], [place] [address] [place], [place] [id number] Chronic joint pain (Primary Dx) Social History [...] unspecified documented in this encounter Care Teams Vocal Performer Relationship Specialty [place] [address] [place] [phone] PCP - General 12/11/20 06/17/21 Harjinder Lora DO [address] [place] [address] PCP - General 02/19/24 documented as of this encounter
--- OUTSIDE RECORDS SUMMARY | 2025-02-21 18:45 | XMS_ITS | Data Portability ---
Author Organization [facility] Address [address] [place] [address] Care Team Providers Care Public Health Technician Name Role Phone CORAL SCHNEIDER Referring Provider [...] Address Organization Details Recorded Time Hypertensive disorder 07602918 Active Danielle Lori null, [facility] 14:37:14 Insomnia 307678885 Active Danielle Lori null, [facility] 14:39:35 Depressive disorder 73190365 [facility] Aneurysm 623162727 Active Danielle Lori null, [facility] 4 14:40:09 Degenerative disorder 067212909 Active Danielle Lori null, [facility] 14:41:35 Arthritis 6824714 Active Danielle Lori null, [facility] 4 14:42:09 Anxiety 28905949 Active Danielle Lori null, [facility] 14:42:24 Cyst of ovary 26925217 [facility] Chronic pain syndrome 526937378 Active 2023 Anna Salazar, [employer] OPERATOR [address], [place], [address] , [place] - [facility] 4 15:22:24 Problem Notes None recorded. Procedures Surgical History Date Name Laterality Status Provider Name and Address Organization Details Recorded Time 8 Brain surgery completed Danielle Sandoval [place] - [facility] 09/14/2023 14:19:15 6 Back Surgery completed Danielle VALDIVIA - [facility] 09/14/2023 14:19:14 6 Hysterectomy completed Danielle VALDIVIA - [facility] 09/14/2023 14:19:14 9 Colposcopy completed Danielle VALDIVIA [facility] 09/14/2023 14:18:42 Stress test completed Danielle Sandoval [place] - [facility] 09/14/2023 14:19:14 Imaging Results None recorded. Procedure Notes None recorded. Medical Equipment None Reported. Allergies Allergen ID Allergen Name Allergen Category Reaction Reaction Severity Criticality Documentation Date Start Date Code Code System Note Provider Name and Address Organization Details Recorded Time 714890 morphine medicatio n rash Not available high 09/14/2023 7052 RxNorm Danielle gonzalez, [place] - [facility] 4 14:31:30 464503 codeine medicatio n rash Not available high 09/14/2023 2670 RxNorm Danielle gonzalez, [place] - [facility] 4 14:31:48 582785 Paxil medicatio n rash Not available [facility] 09/14/2023 99242 8 RxNorm Danielle gonzalez, [facility] 4 14:32:02 Medications Name Sig Start Date [...] Arterial blood by Pulse oximetry Respiratory rate Pain severity - 0-10 verbal numeric rating [Score] - Reported Systolic And Diastolic Provider Name and Address Organization Details Last Updated DateTime 4 172.72 cm 25.9 kg/m2 96864.8 g 97.1 [degF] 93 /min 96 % 96 % 18 /min 0 118/70 mm[Hg] Danielle Sandoval [place] - [facility] [...] Or The Highest Degree You Have Received? [id number] Information not available 09/14/2023 When Did You [...] 09/14/2023 Are you able to care for yourself independently? Yes Information not available 09/14/2023 Do you or have you ever used e-cigarettes or vape? Never used electronic cigarettes Information not available 09/14/2023 What is your exercise level? Occasional Information not available 09/14/2023 Mental Status Question Answer Note LastModified by Organization D etails LastModified Time Do you feel stressed (tense, restless, nervous, or anxious, or unable to sleep at night)? [id number] Information not available 09/14/2023 Family History Relationship [...] available 2023 14:18:34 Medical History Condition Response Depression Y Anxiety Disorder Y Constipation Y Ovarian Cyst Y Endometriosis Y Anemia Y Aneurysm Y Heart Disease Y Hypertension Y Muscle, Joint, or Bone Problems Y Arthritis Y Headaches Y Heart Problems Y Degenerative Disc Disease Y Insomnia Y Sleep Apnea Y Gynecological History Statement/Question Response Abnormal Pap [...] quadrivalent, preservative 7 completed Danielle Lori null, [place] - [facility] 09/14/2023 14:29:09 Influenza, split virus, quadrivalent, preservative 7 completed Danielle Lori null, [facility] 09/14/2023 14:29:09 Influenza, split virus, quadrivalent, preservative 5 completed Danielle Lori null, [facility] 09/14/2023 14:29:09 Influenza, recombinant, quadrivalent, PF 9 completed Danielle Lori null, [facility] 09/14/2023 14:29:09 pneumococcal polysaccharide PPV23 9 completed Danielle Lori null, [place] - [facility] 09/14/2023 14:29:09 Influenza, split virus, quadrivalent, PF 0 completed Danielle Lori null, [facility] 09/14/2023 14:29:09 Influenza, split virus, quadrivalent, PF 1 completed Danielle Lori null, [facility] 09/14/2023 14:29:09 Influenza, split virus, quadrivalent, PF 2 completed Danielle Lori null, [facility] 09/14/2023 14:29:09 Past Encounters Encounter ID Performer Location Encounter Start Date Encounter Closed Date Diagnosis/Indication Diagnosis SNOMED-CT Code Diagnosis ICD10 Code Diagnosis Note [id number] Anna Salazar APRN [address] [address] 09/14/2023 14:04:39 09/14/2023 15:13:33 Hypertensive disorder 22208672 I10 Depressive disorder 3548 9007 F32.A Degenerative disorder 36 4801891 R69 Chronic pain syndrome 37 4570098 G89.4 explained pt pt I can not write percocet but could refer to pain management or decrease her to norco and pt states norco does not help and she does not want to go to pain management ,states she will continue to see her old pcp for now. Aneurysm 768391566 I72.9 Anxiety 37652433 F41.9 pt states she will remain with [...] DUAL COMPLETE (MEDICARE REPLACEMENT/ ADVANTAGE - HMO) [id number] Sheryl Dunlap [id number] Sheryl Dunlap Notes Date Note Type Note Provider Name and Address Organization Details Recorded Time 09/14/2023 text/html 58 yr old female presents to establish care. pt reports chronic back/neck pain, anxiety,htn,depr ession and insomnia. Anna Salazar, [employer] OPERATOR [address], [place], [address], [place] - [facility] 09/14/2023 15:26:58 OBGyn Episode No OBEpisode recorded.
--- NOTE | 2025-02-21 18:47 | PC.NURSE ---
Escalera catheter discontinued
[2025-02-21 18:48] VITALS: BP 128/78; PULSE 69; RESP 17; TEMP 36.9; O2SAT 98
== END 2025-02-21 18:49 | disposition home or self-care (01) ==
LOC: ER 18:40
PROVIDERS: Emergency Provider Student in an Organized Health Care Education/Training Program; PCP Family Medicine
DX: R33.8 Other retention of urine (principal)
CPT/HCPCS: 99282

== ENCOUNTER 2025-02-25 16:25 | Emergency (ER) | payer MEDICARE, MEDICAID, SELFPAY ==
--- OUTSIDE RECORDS SUMMARY | 2017-09-08 14:30 | XMS_ITS | Encounter Summary ---
Author Organization [place] [address] Care Team Providers Care Network Security Consultant Name Role Phone Mingo Whatley MD Primary Care Provider Un available Encounter Details Date Type Department Care Team (Latest Contact Info) Description 09/08/2017 1:30 PM [facility] Hospital Encounter [facility] Referral Lab [address] [phone] Harjinder Cain MD [address] [place] [address] Urinary tract infection Social History Tobacco Use [...] specified documented in this encounter Care Teams Network Security Consultant Relationship Specialty Start Date End Date Mingo Whatley MD PCP - General Family Medicine 09/07/17 9 documented as of this encounter
--- OUTSIDE RECORDS SUMMARY | 2020-03-16 10:53 | XMS_ITS | Encounter Summary ---
Author Organization [place] [address] Care Team Providers Care Senior Site Manager Name Role Phone Candi Nuno MD Primary Care Provider [phone] Encounter Details Date Type Department Care Team (Latest Contact Info) Description 03/16/2020 10:53 AM EDT Hospital Encounter [facility] Referral Lab 1 [place] [address] Major depressive disorder, single episode, moderate (HCC) [...] moderate documented in this encounter Care Teams Senior Site Manager Relationship Specialty Start Date End Date Candi Nuno MD [address] [place] [address] PCP - General Family Medicine 05/23/19 04/10/23 documented as of this encounter
[2025-02-25 16:32] VITALS: BP 108/69; PULSE 70; RESP 16; TEMP 36.6; O2SAT 98; BMI 28.1
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
--- OUTSIDE RECORDS SUMMARY | 2025-02-25 16:33 | XMS_ITS | Data Portability ---
Author Organization Formerly [facility] Address [address] [place] [address] Care Team Providers Care Team Guide Name Role Phone CORAL SCHNEIDER Referring Provider [...] Address Organization Details Recorded Time Hypertensive disorder 28071339 Active Danielle Lori null, [facility] 14:37:14 Insomnia 144408320 Active Danielle Lori null, [facility] 14:39:35 Depressive disorder 97797099 [facility] Aneurysm 962462352 Active Danielle Lori null, [facility] 4 14:40:09 Degenerative disorder 328395764 Active Danielle Lori null, [facility] 14:41:35 Arthritis 0830784 Active Danielle Lori null, [facility] 4 14:42:09 Anxiety 46360294 Active Danielle Lori null, [facility] 14:42:24 Cyst of ovary 89246494 [facility] 14:[facility] Chronic pain syndrome 893598531 Active 2023 Anna Salazar, AUDITOR [address], [place], [address] , [place] - [facility] 4 15:22:24 Problem Notes None recorded. Procedures Surgical History Date Name Laterality Status Provider Name and Address Organization Details Recorded Time 8 Brain surgery completed Danielle Sandoval [place] - [facility] 09/14/2023 14:19:15 6 Back Surgery completed Danielle VALDIVIA - [facility] 09/14/2023 14:19:14 6 Hysterectomy completed Danielle VALDIVIA - [facility] 09/14/2023 14:19:14 9 Colposcopy completed Danielle VALDIVIA [facility] 09/14/2023 14:18:42 Stress test completed Danielle Sandoval [place] - [facility] 09/14/2023 14:19:14 Imaging Results None recorded. Procedure Notes None recorded. Medical Equipment None Reported. Allergies Allergen ID Allergen Name Allergen Category Reaction Reaction Severity Criticality Documentation Date Start Date Code Code System Note Provider Name and Address Organization Details Recorded Time 718484 morphine medicatio n rash Not available high 09/14/2023 7052 RxNorm Danielle gonzalez, [place] - [facility] 4 14:31:30 636774 codeine medicatio n rash Not available high 09/14/2023 2670 RxNorm Danielle gonzalez, [place] - [facility] 4 14:31:48 605918 Paxil medicatio n rash Not available [facility] 09/14/2023 61004 8 RxNorm Danielle gonzalez, [facility] 4 14:32:02 Medications Name Sig [...] Updated DateTime 4 172.72 cm 25.9 kg/m2 84691.8 g 97.1 [degF] 93 /min 96 % [...] Or The Highest Degree You Have Received? [id number] Information not available 09/14/2023 When Did You [...] anxious, or unable to sleep at night)? [id number] Information not available 09/14/2023 Family History Relationship [...] available 2023 14:18:34 Medical History Condition Response Anxiety Disorder Y Heart Problems Y Muscle, Joint, or Bone Problems Y Degenerative Disc Disease Y Arthritis Y Insomnia Y Depression Y Anemia Y Endometriosis Y Constipation Y Ovarian Cyst Y Sleep Apnea Y Aneurysm Y Heart [...] quadrivalent, preservative 7 completed Danielle Lori null, [place] [facility] 09/14/2023 14:29:09 Influenza, split virus, quadrivalent, preservative 7 completed Danielle Lori null, [facility] 09/14/2023 14:29:09 Influenza, split virus, quadrivalent, preservative 5 completed Danielle Lori null, [facility] 09/14/2023 14:29:09 Influenza, recombinant, quadrivalent, PF 9 completed Danielle Lori null, [facility] 09/14/2023 14:29:09 pneumococcal polysaccharide PPV23 9 completed Danielle Lori null, [place] - [facility] 09/14/2023 14:29:09 Influenza, split virus, quadrivalent, PF 0 completed Danielle Lori null, [facility] 09/14/2023 14:29:09 Influenza, split virus, quadrivalent, PF 1 completed Danielle Lori null, [facility] 09/14/2023 14:29:09 Influenza, split virus, quadrivalent, PF 2 completed Danielle Lori null, [facility] 09/14/2023 14:29:09 Past Encounters Encounter ID Performer Location Encounter Start Date Encounter Closed Date Diagnosis/Indication Diagnosis SNOMED-CT Code Diagnosis ICD10 Code Diagnosis Note [id number] Anna Salazar APRN [address] [address] 09/14/2023 14:04:39 09/14/2023 15:13:33 Hypertensive disorder 21693457 I10 Depressive disorder 3548 9007 F32.A Degenerative disorder 36 5332939 R69 Chronic pain syndrome 37 5504596 G89.4 explained pt pt I can not write percocet but could refer to pain management or decrease her to norco and pt states norco does not help and she does not want to go to pain management ,states she will continue to see her old pcp for now. Aneurysm 563041422 I72.9 Anxiety 26178538 F41.9 pt states she will remain with [...] DUAL COMPLETE (MEDICARE REPLACEMENT/ ADVANTAGE - HMO) [id number] Sheryl Dunlap [id number] Sheryl Dunlap OBGyn Episode No OBEpisode recorded.
--- OUTSIDE RECORDS SUMMARY | 2025-02-25 16:33 | XMS_ITS | Clinical Summary ---
[facility] Organization [facility] Address [address] [place] [address] Care Team Providers Care Rivet Bucker Name Role Phone Albert Oliveros MD Primary Care Provider [phone] Allergies Active Allergy Reactions Criticality Noted Date [...] (11/17/2021): Added automatically from request for surgery [id number] Anxiety 06/03/2021 Chronic back pain 06/03/2021 PSVT [...] e 05/12/2023 Family and Community Support Answer Odnnie e Recorded Help with Day-to-Day Activities Not [...] history exists Medical Devices Implanted Type Area Journeyman Electrician Device Identifier Shelf Expiration Date Model / Serial / Lot Stent Mason/Divr Surpassevolve Ds 5x15/5.2mm - [id number] Implanted:Qty: 1 on 12/09/2021 by Car Ledezma MD at [facility] Implant DESIREE KEVEN 11/19/2022 [id number] Insurance SHEA WISDOM [id number] [facility] DUAL COMPLETE MEDIC [facility] MEDICAID Advance Directives * CPR (Attempt [...] Of Support Discussed With: Patient Care Teams Rivet Bucker Relationship Specialty Start Date End Date Albert Oliveros MD [facility] [address] ATTN: [place] [address] PCP - General Emergency Medicine 06/02/21
--- OUTSIDE RECORDS SUMMARY | 2025-02-25 16:34 | XMS_ITS | Continuity of Care Document ---
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 Walker MD SHOULDER ARTHROSCOPY ROTATOR CUFF REPAIR/SUBACROMIAL DECOMPRESSION/MUMFOR D/BICEP TENODESIS 12/07/2012 6:20 AM EDT - 12/07/2012 11:45 AM EDT Hospital Encounter [facility] [place] [address] Syed Walker MD Discharge Disposition: Home or Self Care 11/09/2012 1:59 PM EDT - 11/09/2012 11:59 PM EDT Hospital Encounter [facility] MRI [address] [place] [address] Syed Lynn, DPM Pain in joint, shoulder region; Superior glenoid labrum lesion Discharge Disposition: Home or Self Care 10/25/2012 Telephone [facility] [address] [place] [address] Ashley Argueta, A Other 10/04/2012 Telephone [facility] [address] [place] [address] Roxy Almanzar, A Other 10/01/2012 11:38 AM EST - 10/01/2012 11:59 PM EST Hospital Encounter [facility] MRI [address] [place], [place] [id number] Mingo Gilman MD Lumbago Discharge Disposition: Home or Self Care 09/27/2012 Telephone [facility] [address] [place] [address] Hunt, Viral V, DO Results 09/24/2012 3:23 PM EST - 09/24/2012 11:59 PM EST Hospital Encounter [facility] [address] [place] [address] Hunt, Viral V, DO Left shoulder strain; Left shoulder pain; Frozen shoulder Discharge Disposition: Home or Self Care 09/18/2012 8:20 AM EST Office Visit [facility] [address] [place] [address] Hunt, Viral V, DO Anxiety (Primary Dx); Depression; Acute sinusitis; Left shoulder strain; Left shoulder pain; Frozen shoulder; DDD (degenerative disc disease); Cauda equina syndrome (HCC) 09/17/2012 Telephone [facility] [address] [place] [address] Hunt, Viral V, DO Referral 05/03/2012 Telephone [facility] [place] [address] [place] [address] Lucita Feng RN Abnormal Radiology 04/19/2012 Telephone [facility] [address] [place] [address] Kyile Duran, Clerical Staff Abnormal Radiology 04/13/2012 10:15 AM EDT Hospital Encounter [facility] Mammography [address] [place] [address] Hunt, Viral V, DO Other screening mammogram Discharge Disposition: Home or Self Care 04/13/2012 10:16 AM EDT - 04/13/2012 11:59 PM EDT Hospital Encounter [facility] CT [address] [place] [address] Hunt, Viral V, DO Abdominal mass Discharge Disposition: Home or Self Care 04/09/[address] [address] Hunt, Viral V, DO Referral 04/09/2012 11:10 AM EDT Office Visit [facility] [address] [place] [address] Hunt, Viral V, DO Abdominal mass (Primary Dx); Need for influenza vaccination; Other screening mammogram; Muscle spasm 03/08/2012 Telephone [facility] [address] [place] [address] Bouchra Teague RMA Medication Problem 03/08/2012 3:20 PM EDT Office Visit [address] [address] Hunt, Viral V, DO Anxiety; Depression; Chronic back pain; Fracture of right foot 03/05/2012 6:39 PM EDT - 03/05/2012 8:12 PM EDT Emergency [facility] [address] [place] [address] Staci Espino MD Contusion, foot; Fracture of phalanx of toe Discharge Disposition: Home or Self Care 12/29/2011 1:47 PM EDT - 12/29/2011 11:59 PM EDT Hospital Encounter [facility] MRI [address] [place] [id number] Maggi Chi MD Neck pain Discharge Disposition: Home or Self Care 12/29/2011 1:46 PM EDT Hospital Encounter [address] [place] [address] Maggi Chi MD Lumbar back pain Discharge Disposition: Home or Self Care 12/29/2011 1:46 PM EDT Hospital Encounter [address] [place] [address] Maggi Chi MD Back pain, thoracic Discharge Disposition: Home or Self Care 12/22/2011 11:22 AM EDT - 12/22/2011 11:59 PM EDT Hospital Encounter [address] [place] [address] Maggi Chi MD Headaches, cluster Discharge Disposition: Home or Self Care 12/22/2011 11:06 AM EDT - 12/22/2011 11:21 AM EDT Hospital Encounter [address] [place] [address] Maggi Chi MD Menopausal disorder Discharge Disposition: [...] the original. Sheryl does want to use [facility] 08/09/17 CSTA-08/22/17 [place] 08/22/17 UDS 12/18/17 Problem Noted Date Diagnosed Date History of ovarian cyst 03/19/2020 Family history of ovarian cancer 03/19/2020 Screening for colon cancer 06/17/2019 Overview (06/17/2019): Added automatically from request for surgery [id number] MDD (major depressive disord er), recurrent episode, [...] Hx Social History Smoking Status as of 02/25/2025 Tobacco Use Types Packs/Day Years Used Date [...] on file Medical Devices Implanted Type Area Help Desk Operator Device Identifier Shelf Expiration Date Model / Serial / Lot Screw Tenodesis Biocomposite 7mm X 10mm - [id number] Implanted:Qty: 1 on 12/07/2012 by Syed Walker MD at [facility] Left: Arm ARTHREX 11/27/2014 AR-1670BC / +[id number] / Screw Tenodesis Biocomposite 7mm X 10mm - [id number] Implanted:Qty: 1 on 12/07/2012 by Syed Walker MD at [facility] Left: Arm ARTHREX 11/27/2014 AR-1670BC / +[id number] / Putty I-Factor 1.0cc Syringe - [id number] Implanted:Qty: 1 on 09/04/2017 by Harjinder Cain MD at [facility] N/A: Spine Cervical CER[employer]EDICS 05/30/2020 700-010 / / [id number] Plate Bone Ambassador L18 Mm Spine 1 Level Nonsterile - [id number] Implanted:Qty: 1 on 09/04/2017 by Harjinder Cain MD at [facility] NA: Spine Cervical PARADIGM HALO [employer] 05- / / Screw Variable Self Drilling/Tapping 4.0x14mm - [id number] Implanted:Qty: 4 on 09/04/2017 by Harjinder Cain MD at [facility] N/A: Spine Cervical PARADIGM HALO [employer] 05- / / Spacer Cervical Stealth 14 X 16 X 7 6 Degree - [id number] Implanted:Qty: 1 on 09/04/2017 by Harjinder Cain MD at [facility] NA: Spine Cervical PARADIGM HALO [employer] [id number] / / Procedures Procedure Name Priority [...] CAGE OR Vg2 BONE AND PLATE, EVOKES #[id number], OR TABLE / OTHER, ASSIST, FLUOROReps notified-DT [...] Nontraumatic rupture of other tendon Special Needs CPT;[id number] MRI SHOULDER LEFT WO CONTRAST Routine 11/09/2012 [...] - 4.200 mcIU/mL 03/19/2020 7:23 PM EDT [facility] Blood VENOUS BLOOD / Unknown Venipuncture / Unknown 03/19/2020 2:52 PM EDT 03/19/2020 2:52 PM EDT Narrative Blip - 03/19/2020 7:23 PM EDT Ingestion of caterina doses of biotin (>5 mg/day) taken within 8 hours of drawing blood sample can interfere with this immunoassay test. us Candi Nuno MD CHEMISTRY ORDERABLES Final Res ult [facility] [address] [facility] , [place] [address] * CBC WITH DIFF (03/19/2020 2:52 PM [...] - 3.9 x10(3)/mcL 03/19/2020 7:04 PM EDT [facility] [employer] [facility] [place]on # 0.6 0.3 - 0.9 x10(3)/mcL 03/19/2020 7:04 PM EDT [facility] [employer] [facility] Eos# 0.0 0.0 - 0.5 x10(3)/mcL 03/19/2020 7:04 PM EDT [facility] [employer] [facility] Baso # 0.0 0.0 - 0.1 x10(3)/mcL 03/19/2020 7:04 PM EDT [facility] [employer], [facility] Blood VENOUS BLOOD / Unknown Venipuncture / Unknown 03/19/2020 2:52 PM EDT 03/19/2020 2:52 PM EDT us Candi Nuno MD HEMATOLOGY ORDERABLES Final Re sult Performing Organization Address [facility] de Phone Number [facility] [employer] [facility] [address] [facility] , [place] [address] * CA 125 (03/19/2020 2:52 PM EDT) [facility] Ca 125 9.3 0.0 - 35.0 unit/mL 03/19/2020 7:55 PM EDT [facility] [employer] [facility] Comment:[facility] uses the Sharma Punchboard Inserter CA125 II assay, which is intended to [...] ORDERABLES Final Res ult Performing Organization Address [facility] Co de Phone Number [facility] [employer], [facility] [address] [facility] , [place] [phone] * LIPASE LEVEL (03/19/2020 2:52 PM EDT) Lipase Lvl 19 13 - 60 U/L 03/19/2020 7:23 PM EDT [facility] Blood VENOUS BLOOD / Unknown Venipuncture / Unknown 03/19/2020 2:52 PM EDT 03/19/2020 2:52 PM EDT us Candi Nuno MD CHEMISTRY ORDERABLES Final Res ult Performing Organization Address [facility]/ZIP Co de Phone Number [facility] [employer] [facility] [address] [facility] , [place] [address] * AMYLASE LEVEL (03/19/2020 2:52 PM EDT) Amylase Lvl 66 28 - 100 U/L 03/19/2020 7:23 PM EDT [facility] [employer] [facility] Blood VENOUS BLOOD / Unknown Venipuncture / Unknown 03/19/2020 2:52 PM EDT 03/19/2020 2:52 PM EDT us Candi Nuno MD CHEMISTRY ORDERABLES Final Res ult Performing Organization Address [facility] Co de Phone Number [facility] [employer] [facility] [address] [facility] , [place] [address] * (ABNORMAL) COMPREHENSIVE METABOLIC [...] 03/19/2020 7:23 PM EDT [facility] Calcium 9.9 8.6 - 10.4 mg/dL 03/19/2020 7:23 PM EDT [facility] Glucose Lvl 72(L) 74 - 100 mg/dL 03/19/2020 7:23 PM EDT [facility] BUN 10 6 - 20 mg/dL 03/19/2020 7:23 PM EDT [facility] Creatinine 1.04 0.51 - 1.30 mg/dL 03/19/2020 7:23 PM EDT [facility] Albumin 4.8 3.5 - 5.2 gm/dL 03/19/2020 7:23 PM EDT [facility] Total Protein 6.9 6.4 - 8.3 gm/dL 03/19/2020 7:23 PM EDT [facility] Bili Total 0.3 0.1 - 1.3 mg/dL 03/19/2020 7:23 PM EDT [facility] ALT 9 <=41 U/L 03/19/2020 7:23 PM EDT [facility] AST 20 <=40 U/L 03/19/2020 7:23 PM EDT [facility] Alk Phos 94 36 - 123 U/L 03/19/2020 7:23 PM EDT [facility], [facility] GFR Afr Am 71 >=60 mL/min/1.7 3 m2 03/19/2020 7:23 PM EDT [facility] GFR Non Afr Am 61 >=60 mL/min/1.7 3 m2 03/19/2020 7:23 PM EDT [facility] Comment: This estimated GFR was [...] Nuno MD CHEMISTRY ORDERABLES Final Res ult [facility] [employer], [employer] [address] [facility] [address] [place] [address] [facility] [address] [place], [place] [phone] * SEP URINALYSIS POC (03/19/2020 2:51 PM EDT) [facility] Signature UA Color POC Yellow 03/19/2020 2:53 PM EDT [facility] UA Appear POC Clear Clear 03/19/2020 2:53 PM EDT [facility] UA Gluc POC Negative Negative mg/dL 03/19/2020 2:53 PM EDT [facility] [facility] UA Bili POC Negative Negative 03/19/2020 2:53 PM EDT [facility] [facility] UA Ketones POC Negative Negative mg/dL 03/19/2020 2:53 PM EDT [facility] [place] [facility] UA SG POC 1.010 1.001 - 1.035 03/19/2020 2:53 PM EDT [facility] [place] [facility] UA Blood POC Negative Negative 03/19/2020 2:53 PM EDT [facility] [place] [facility] UA pH POC 6.0 5.0 - 8.0 03/19/2020 2:53 PM EDT [facility] [place] [facility] UA Protein POC Negative Negative mg/dL 03/19/2020 2:53 PM EDT [facility] [place] [facility] UA Urobilinogen POC 0.2 0.2, 1.0 03/19/2020 2:53 PM EDT [facility] [place] [facility] UA Nitrite POC Negative Negative 03/19/2020 2:53 PM EDT [facility] [place] [facility] UA Leuk Est POC Negative Negative 0 2:53 PM EDT [facility] [place] [facility] Urine STRUCTURE OF URINARY TRACT PROPER / Unknown 03/19/2020 2:51 PM EDT 03/19/2020 2:53 PM EDT us Candi Nuno MD POINT OF CARE TEST ORDERABLES Final Result Performing Organization Address City/[facility]/ZIP Co de Phone Number [facility] [address] [place] [phone] * MRI BRAIN ATTN PITUITARY W WO [...] changes are present. - Candi Nuno MD [facility] MRI ORDERABLES Final Resul t * (ABNORMAL) URINE CULTURE (NO STAIN) (10/16/2019 8:30 AM EDT) Only the most recent of2 resultswithin the time period is included. Culture Positive Growth(A) 10/18/2019 6:53 AM EDT [facility] [employer] Culture 19979 CFU/mL Escherichia coli SUSCEPTIBI LITY RESULT 10/18/2019 6:53 AM EDT [facility] [employer] [facility] Urine URINE SPECIMEN COLLECTION, CLEAN CATCH / [...] MICROBIOLOGY - GENERAL ORDERAB LES Final Result [facility] [address] [facility] , [address] [place] [id number] * POCT URINALYSIS AUTOMATED (10/16/2019 8:28 AM EDT) Only the most recent of4 resultswithin the time period is included. Color, UA SEP OFFICE Clarity, UA SEP OFFICE Glucose, UA norm G/DL% [facility] Bilirubin, UA neg POS/NEG SEP OFFICE Ketones, UA neg POS/NEG SEP integration specialist Grav, UA 1.020 1.001 - 1.035 [...] 12:06 PM CLINICAL HISTORY: M25.512-Pain in left effqajjh-IQS-09-CM COMPARISON: 09/24/2012 PROCEDURE COMMENTS: Routine views. FINDINGS: [...] 12:06 PM CLINICAL HISTORY: M25.512-Pain in left zdwlcfmj-BCX-30-CM COMPARISON: 09/24/2012 PROCEDURE COMMENTS: Routine views. FINDINGS: [...] - 946 pg/mL 05/23/2019 8:50 PM EDT [facility] Folate >16.00(H) 4.50 - 16.00 ng/mL 05/23/2019 8:50 PM EDT [facility] Blood VENOUS BLOOD / Unknown Venipuncture / Unknown 05/23/2019 3:34 PM EDT 05/23/2019 3:34 PM EDT Narrative [facility] - 05/23/2019 8:50 PM EDT Ingestion of caterina doses of biotin (>5 mg/day) taken within 8 hours of drawing blood sample can interfere with this immunoassay test. us Candi Nuno MD CHEMISTRY ORDERABLES Final Res ult [facility] [address] [facility] , [place] [address] * HEMOGLOBIN A1C (05/23/2019 3:34 PM EDT) Hgb A1C 5.6 4.2 - 5.6 % 05/23/2019 8:38 PM EDT Bl[facility] Est. Avg Glucose 114 mg/dL 05/23/2019 8:38 PM EDT [facility] Blood VENOUS BLOOD / Unknown Venipuncture / Unknown 05/23/2019 3:34 PM EDT 05/23/2019 3:34 PM EDT Narrative [facility] - 05/23/2019 8:38 PM EDT REFERENCE RANGE: Normal: 4.0-5.6% Pre-diabetes: 5.7-6.4% Provisional diagnosis of diabetes: >6.4% Hgb F>10% and anything which shortens red cell survival, such as hemolytic anemia, or unstable hemoglobin variants such as HbSS, HbSC, or HbCC, will lower the HbA1c value associated with a given level of glycemic control. us Candi Nuno MD CHEMISTRY ORDERABLES Final Res ult [facility] [address] [facility] , [address] [place] [id number] * LIPID SCREEN (05/23/2019 3:34 PM EDT) Only the most recent of3 resultswithin the time period is included. Cholesterol 190 <=200 mg/dL 05/23/2019 8:39 PM EDT Blip Comment: < 200 Desirable 200 - 239 Borderline High >= 240 High Triglyceride 119 <=150 mg/dL 05/23/2019 8:39 PM EDT Blip Comment: < 150 Normal 150 - 199 Borderline High 200 - 499 High >= 500 Very High HDL 74 >=40 mg/dL 05/23/2019 8:39 PM EDT Blip Comment: > 60 Optimal 40 - 60 Acceptable < 40 Low LDL Calculated 92 <=100 mg/dL 05/23/2019 8:39 PM EDT Blip Comment: < 100 Optimal 100 - 129 Near or above optimal 130 - 159 Borderline High 160 - 189 High >= 190 Very High Non-HDL-C Calculated 116 <=129 mg/dL 05/23/2019 8:39 PM EDT Blip Comment: <130 Desirable 130-159 Above Desirable 160-189 Borderline High 190-219 High >= 220 Very High Fasting Specimen? Yes None 019 8:39 PM EDT [facility] Blood VENOUS BLOOD / Unknown Venipuncture / Unknown 05/23/2019 3:34 PM EDT 05/23/2019 3:34 PM EDT us Candi Nuno MD CHEMISTRY ORDERABLES Final Res ult [facility] [employer] [facility], [address] [place] [id number] * MRI THORACIC SPINE WO CONTRAST (05/14/2019 [...] 04/23/2019 3:48 PM CLINICAL HISTORY: M54.5-Low back bojv-IDA-28-CM Y24-Mwqszqvalik urinary ppqmrgnpkjxy-CHK-84-CM COMPARISON: Radiographs 12/02/2016. No prior MRI. PROCEDURE [...] 04/23/2019 3:48 PM CLINICAL HISTORY: M54.5-Low back yynq-DCI-56-CM P28-Ibjxxlztmmd urinary whxrflzvrzdj-EQG-38-CM COMPARISON: Radiographs 12/02/2016. No prior MRI. PROCEDURE [...] neuralforamina bilaterally at L3-4. - [facility] DATABASE DESIGN ANALYST IMG MRI ORDERABL ES Final Result * [...] WITHOUT CONTRAST, 04/23/2019 3:30 PM CLINICAL HISTORY: M54.0-Zwiiarkfhzs-PLT-10-CM Z98.1-Arthrodesis uygnfm-FJX-03-CM COMPARISON: MRI cervical spine 2018 PROCEDURE COMMENTS: [...] WITHOUT CONTRAST, 04/23/2019 3:30 PM CLINICAL HISTORY: M54.8-Zglhbjsaxmj-PFW-10-CM Z98.1-Arthrodesis aczwja-LRO-98-CM COMPARISON: MRI cervical spine 2018 PROCEDURE COMMENTS: [...] changes at C4-C5 and C5-C6 levels. - [facility] Ary-Garcia DATABASE DESIGN ANALYST IMG MRI ORDERABL ES Final Result * (ABNORMAL) HB-1 CUSTOM UDS PANEL-QUEST (12/25/2018 10:40 PM EDT) Only the most recent of2 resultswithin the time period is included. Prescribed Drug 1 Gabapentin [facility] Prescribed Drug 2 [place](TM) [facility] Ritalinic Acid NEGATIVE <100 ng/mL [facility] Comment:See Note 1 medMATCH Ritalinic Acid CONSISTENT [facility] medMatch Comments [facility] Comment:See Note 2 Prescribed Drug 1 Gabapentin [facility] Prescribed Drug 2 [place](TM) [facility] 6-Acetylmorphine,GC/MS NEGATIVE <10 ng/mL [facility] medMATCH 6 Acetylmorphine CONSISTENT [facility] medMatch Comments [facility] Comment:See Note 2 Prescribed Drug 1 Gabapentin [facility] Prescribed Drug 2 [place](TM) [facility] Creatinine, Urine 130.1 > or = 20.0 mg/dL [employer] [facility] UA Spec Grav 1.023 > or = 1.003 [facility] UA pH 5.9 4.5 - 9.0 [facility] Oxidant NEGATIVE <200 mcg/mL [facility] Amphetamines NEGATIVE <500 ng/mL [facility] medMATCH Amphetamines CONSISTENT [facility] Barbiturates NEGATIVE <300 ng/mL [facility] medMATCH Barbiturates CONSISTENT [facility] Benzodiazepines NEGATIVE CONFIRMED <100 ng/mL [facility] ALPHAHYDROXYALPRAZOLAM NEGATIVE <25 ng/mL [facility] Comment:See Note 1 medMATCH aOH alprazolam CONSISTENT [facility] ALPHAHYDROXYMIDAZOLAM NEGATIVE <50 ng/mL [facility] Comment:See Note 1 MEDMATCH AOH MIDAZOLAM CONSISTENT [facility] ALPHAHYDROXYTRIAZOLAM-QU EST NEGATIVE <50 ng/mL [facility] Comment:See Note 1 medMATCH aOH triazolam CONSISTENT [facility] Aminoclonazepam NEGATIVE <25 ng/mL [facility] Comment:See Note 1 medMATCH Aminoclonazepam CONSISTENT [facility] Hydroxyethylflurazepam NEGATIVE <50 ng/mL [facility] Comment:See Note 1 MEDMATCH [place] ET FLURAZEPAM CONSISTENT [facility] LORAZEPAM-QUEST NEGATIVE <50 ng/mL [facility] Comment:See Note 1 medMATCH Lorazepam CONSISTENT [facility] NORDIAZEPAM-QUEST NEGATIVE <50 ng/mL [facility] Comment:See Note 1 medMATCH Nordiazepam CONSISTENT [facility] OXAZEPAM-QUEST NEGATIVE <50 ng/mL [facility] Comment:See Note 1 medMATCH Oxazepam CONSISTENT [facility] TEMAZEPAM-QUEST NEGATIVE <50 ng/mL [facility] Comment:See Note 1 medMATCH Temazepam CONSISTENT [facility] Marijuana Metabolite NEGATIVE <20 ng/mL [facility] medMATCH Marijuana Metab CONSISTENT [facility] Cocaine Metabolite POSITIVE(A) <150 ng/mL [facility] BENZOYLECGONINE-QUEST 124(H) <100 ng/mL [facility] Comment:See Note 1 medMATCH Benzoylecgonine INCONSISTENT (A) [facility] Methadone NEGATIVE <100 ng/mL [facility] medMATCH Methadone CONSISTENT [facility] Opiates NEGATIVE <100 ng/mL [facility] medMATCH Opiates INCONSISTENT (A) [facility] Oxycodone NEGATIVE <100 ng/mL [facility] medMATCH Oxycodone CONSISTENT [facility] Confirmation Testing Performed at: [facility] Comment: [facility] TACOMA KAYA, [facility], , [place] [address], Manager Roofing: ANN HOWARD MD CLIA: [id number] medMatch Comments Qu est [facility] Comment: See Note 2 Note 1 This test was developed and its analytical performance characteristics have been determined by [facility]. It has not been cleared or approved [...] or to monitor progress of medical conditions. medFoldaxTCH comments are: - present when drug test results may be the result of metabolism of one or more drugs or when results are inconsistent with prescribed medication(s) listed. - may be blank when drug results are consistent with prescribed medication(s) listed. For assistance with interpreting these drug results, please contact a [facility] Toxicology Specialist: [phone] ( ), M-F, 8am-6pm EST. 12/25/2018 10:4 0 PM EDT 12/26/2018 8:15 PM EDT Mingo Whatley MD [facility] ORDERABLE (NON- [facility]) Final Result Performing Organization Address City/[facility] Co de Phone Number [email or web address] [facility] [address] [address] [facility] [address] [place] [address] * THYROID STIMULATING HORMONE (12/25/2018 9:21 AM EDT) Only the most recent of2 resultswithin the time period is included. TSH 2.140 0.270 - 4.200 mcIU/mL 12/25/2018 2:43 PM EDT Blip Blood Venipuncture / Unknown 12/25/2018 9:21 AM EDT 12/25/2018 9:22 AM EDT Narrative PREFERRED Nitro PDF - 12/25/2018 2:43 PM EDT Ingestion of caterina doses of biotin (>5 mg/day) taken within 8 hours of drawing blood sample can interfere with this immunoassay test. us Mingo Whatley MD CHEMISTRY ORDERABLES Ann l Result Blip 1 [facility] , [address] [place] [id number] * T4, FREE (THYROXINE) (12/25/2018 9:21 AM EDT) Only the most recent of2 resultswithin the time period is included. [facility] Signature Free T4 1.08 0.80 - 2.00 ng/dL 12/25/2018 2:41 PM EDT Blip Blood Venipuncture / Unknown 12/25/2018 9:21 AM EDT 12/25/2018 9:22 AM EDT Narrative PREFERRED Nitro PDF - 12/25/2018 2:41 PM EDT Ingestion of caterina doses of biotin (>5 mg/day) taken within 8 hours of drawing blood sample can interfere with this immunoassay test. us Mingo Whatley MD CHEMISTRY ORDERABLES Ann l Result Performing Organization Address [facility] Co de Phone Number [facility] Nitro PDF [address] [place] [address], [place] [address] * INTRAOP AIRWAY PLACEMENT (04/03/2018 3:25 PM EDT) Narrative [facility] - 04/03/2018 3:25 PM EDT Garth Kelsey CRNA 04/03/2018 3:25 PM Intraop Airway Placement: Airway type: Nasal cannula salter Procedure Note Garth Kelsey CRNA - 04/03/2018 3:25 PM EDT Intraop Airway Placement: Airway type: Nasal cannula salter us Arnel Olsen MD CT ANESTHESIA Final Result Performing Organization Address [facility]/ZIP Co de Phone Number [address] [address] * (ABNORMAL) EMG (02/21/2018 4:16 PM EDT) Impressions [facility] - 02/21/2018 4:16 PM EDT Abnormal electrodiagnostic study There is EMG evidence of a 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 There is no EMG evidence of a right cervical radiculopathy or plexopathy. Narrative [facility] - 02/21/2018 4:16 PM EDT [...] ORDERABLES Final R esult Performing Organization Address [facility] [place] [address] * SCANNED RHYTHM STRIPS (09/06/2017 9:57 PM [...] ORDERABLES F inal Result Performing Organization Address [facility] Co de Phone Number PACS * [...] through 10th images document placement of anterior C5-K2raruqm plate. Total listed fluoroscopy time: 0.17 minutes. IMPRESSION: 1. Intraoperative documentation anterior C6-C7 ACDF. Harjinder Cain MD IMG DIAGNOSTIC IMAGING ORDER MARILEE Final Result * INTRAOP AIRWAY PLACEMENT (09/04/2017 11:31 AM EST) Narrative [facility] - 09/04/2017 11:31 AM EST [...] Unchanged and Atraumatic Insertion attempts: 1 Title: RIPSAW GRADER Procedure Note Wander Potter CRNA - 09/04/2017 [...] Unchanged and Atraumatic Insertion attempts: 1 Title: RIPSAW GRADER us Pierre Webber MD CT ANESTHESIA Final Res ult Performing Organization Address [facility] Co de Phone Number [facility] [address] [place] [address] * (ABNORMAL) VITAMIN D 25 HYDROXY (08/31/2017 7:49 AM EST) Only the most recent of2 resultswithin the time period is included. [facility] Vit D 25 OH 18.0(L) 30.0 - 120.0 ng/mL 08/31/2017 3:48 PM EST [facility] Comment: INTERPRETIVE INFORMATION: Vitamin D, [...] ORDERABLES Ann l Result Performing Organization Address [facility] Co de Phone Number [facility] [address] [place] [address] * BASIC METABOLIC PANEL (08/31/2017 7:49 AM EST) [facility] Sodium 142 136 - 145 mmol/L 08/31/2017 9:10 AM EST [facility] Potassium 4.5 3.5 - 5.0 mmol/L 08/31/2017 9:10 AM EST [facility] Chloride 106 98 - 107 mmol/L 08/31/2017 9:10 AM [facility] Total CO2 28 22 - 29 mmol/L 08/31/2017 9:10 AM [facility] Anion Gap 8 7 - 16 mmol/L 08/31/2017 9:10 AM [facility] Calcium 9.5 8.6 - 10.2 mg/dL 08/31/2017 9:10 AM [facility] Glucose Lvl 93 74 - 100 mg/dL 08/31/2017 9:10 AM [facility] BUN 19 6 - 20 mg/dL 08/31/2017 9:10 AM [facility] Creatinine 1.16 0.51 - 1.30 mg/dL 08/31/2017 9:10 AM [facility] GFR Afr Am 63 mL/min/1.7 3 m2 08/31/2017 9:10 AM [facility] GFR Non Afr Am 55 mL/min/1.7 3 m2 08/31/2017 9:10 AM [facility] Comment: GFR Afr Am and [...] Whatley MD CHEMISTRY ORDERABLES Ann moya Result [facility] [address] [place] [address] * BB HISTORY CHECK (08/29/2017 9:32 AM EST) BB HISTORY CHECK (1) No Previous History 08/29/2017 10:13 AM EST [facility] Blood VENOUS BLOOD / Unknown Venipuncture / Unknown 08/29/2017 9:32 AM EST 08/29/2017 10:02 AM EST us Harjinder Cain MD BLOOD BANK ORDERABLES Final Result Performing Organization Address City/[facility] Co de Phone Number [facility] [address] [place] [address] * SURGERY DATE (08/29/2017 9:32 AM EST) Pathologist [facility] Surgery Date (1) Complete 08/29/2017 10:13 AM EST [facility] Blood VENOUS BLOOD / Unknown Venipuncture / Unknown 08/29/2017 9:32 AM EST 08/29/2017 10:02 AM EST Harjinder Cain MD BLOOD BANK ORDERABLES Final Result Performing Organization Address [facility] de Phone Number [facility] [address] [place] [address] * STAPHYLOCOCCUS AUREUS SCREEN (08/29/2017 9:32 AM EST) Pathologist [facility] Staph aureus PCR Not Detected Not Detected 08/30/2017 8:48 AM EST [facility] MRSA PCR Not Detected Not Detected 08/30/2017 8:48 AM EST [facility] Swab BOTH ANTERIOR NARES / Unknown 08/29/2017 9:32 AM EST 08/29/2017 10:02 AM EST Narrative [facility] - 08/30/2017 8:48 AM EST Staphylococcus aureus target DNA sequence is not detected. This qualitative assay is intended for the detection of Staphylococcus aureus proprietary sequences for the staphylococcal protein A (spa) gene, the gene for methicillin resistance (mecA), and the staphylococcal cassette chromosome mec (SCCmec) inserted into the SA chromosomal attB site. This assay utilizes real time PCR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
--- OUTSIDE RECORDS SUMMARY | 2025-02-25 16:34 | XMS_ITS | Clinical Summary ---
Author Organization [facility] Address [address] [place] [address] Care Team Providers Care Stone Sawyer Name Role Phone GuidoHarjinder Primary Care Provider [phone] Social History Tobacco Use Types Packs/Day Years Used Date Smoking Tobacco: Never Assessed Comments Unknown Sex and Gender Information Value Date Recorded Sex Assigned at Not on file Legal Sex Female 8:28 PM EDT Gender Identity Not on file Sexual Orientation Not on file Plan of Treatment Not on file Insurance [employer] MEDICARE [employer] MEDICAID Care Teams Stone Sawyer Relationship Specialty Start Date End Date Harjinder Lora DO [address] [place] [address] PCP - General 02/19/24
--- OUTSIDE RECORDS SUMMARY | 2025-02-25 16:34 | XMS_ITS | Encounter Summary ---
Author Organization Healthcare Address [address] [place] [address] Care Team Providers Care Svp Group Director Name Role Phone Alexx Madrid MD Primary Care Provider [phone] Harjinder Lora DO Primary Care Provider Encounter Details Date Type Department Care Team (Late st Contact Info) Description 05/28/2021 [facility] [address] [place] [address] [place], [place] [address] [place], [place] [id number] Chronic joint pain (Primary Dx) Social History [...] unspecified documented in this encounter Care Teams Svp Group Director Relationship Specialty [place] [address] [place] [phone] PCP - General 12/11/20 06/17/21 Harjinder Lora DO [address] [place] [address] PCP - General 02/19/24 documented as of this encounter
[2025-02-25] MEDS: LIDOCAINE 2% VISCOUS SOL 15ML UDC 15 ML PO (16:56)
[2025-02-25 17:00] VITALS: BP 112/68; PULSE 73; RESP 15; TEMP 36.9; O2SAT 97
== END 2025-02-25 17:04 | disposition home or self-care (01) ==
PROVIDERS: Emergency Provider Student in an Organized Health Care Education/Training Program; PCP Family Medicine
DX: K08.89 Other specified disorders of teeth and supporting structures (principal); F43.10 Post-traumatic stress disorder, unspecified; F32.9 Major depressive disorder, single episode, unspecified; G24.9 Dystonia, unspecified; I10 Essential (primary) hypertension
CPT/HCPCS: 99283

== ENCOUNTER 2025-03-27 15:16 | Outpatient (CLI) | payer MEDICARE, MEDICAID, SELFPAY ==
--- OUTSIDE RECORDS SUMMARY | 2017-09-08 14:30 | XMS_ITS | Encounter Summary ---
Author Organization [place] [address] Care Team Providers Care Special Officer Name Role Phone Mingo Whatley MD Primary Care Provider Un available Encounter Details Date Type Department Care Team (Latest Contact Info) Description 09/08/2017 1:30 PM [facility] Hospital Encounter [facility] Referral Lab [address] [id number] Harjinder Cain MD [address] [place] [address] Urinary tract infection Social History Tobacco Use Types Packs/Day Years Used Date Smoking Tobacco: Former Cigarettes 1 12 0 08/24/1983 - 08/24/1995 Smokeless Tobacco: Never Alcohol Use Standard Drinks/Week Comments No 0 (1 standard drink = 0.6 oz pur e alcohol) PHQ-2 Answer Date Recorded PHQ-2 Score 0 12/25/2018 Sexually Active Control Partners Comments Yes Male Comments No Sex and Gender Information Value Date Recorded Sex Assigned at Not on file Legal Sex Female 4:16 AM EDT Gender Identity Not on file Sexual Orientation Not on file COVID-19 Exposure Response Date Recorded In the last month, have you been in contact with someone who was confirmed or suspected to have Coronavirus / COVID-19? No / Unsure 03/19/2020 1:41 PM EDT documented as of this encounter Functional Status * Cognitive and Functional Status Question Answer Date of Assessment Author Is the person deaf or does h e/she have serious difficulty hearing? No 10/16/2019 8:25 AM EDT Danielle Perez MA Is the person blind or does he/she have serious difficulty seeing even when wearing glasses? No 10/16/2019 8:25 AM EDT Maria Antonia Perez i, MA Does this person have seriou s difficulty walking or climbing stairs? No 10/16/2019 8:25 AM Danielle Glasgow MA Does this person have diffic ulty dressing or bathing? No 10/16/2019 8:25 AM Danielle Glasgow MA * Is the person deaf or does he/she have serious difficulty hearing? Answer Date of Assessment Author No 09/07/2017 9:10 AM AVILA Shun Dior, RMA * Is the person blind or does he/she have serious difficulty seeing even when wearing glasses? Answer Date of Assessment Author No 09/07/2017 9:10 AM EST Barby S jefry Simmons, RMA * Does this person have serious difficulty walking or climbing stairs? Answer Date of Assessment Author No 09/07/2017 9:10 AM AVILA Shun Dior, RMA * Does this person have difficulty dressing or bathing? Answer Date of Assessment Author No 09/07/2017 9:10 AM EST Barby S jefry Simmons, RMA * Because of a physical, mental or emotional condition, does this person have difficulty doing errands alone such as visiting a doctor's office or shopping? Answer Date of Assessment Author No 09/07/2017 9:10 AM EST Barby S jefry Simmons, RMA * PHQ-9 Total Score Answer Date of Assessment Author 0 10/16/2019 8:25 AM EDRaul Desouza MA * Question Answer Date of Assessment Author Little interest or pleasure in doing things 0 10/16/2019 8:25 AM Danielle Glasgow MA Feeling down, depressed, or hopeless 0 10/16/2019 8:25 AM Danielle Glasgow MA PHQ-2 Total Score 0 10/16/2019 8:25 AM Danielle Glasgow MA documented as of this encounter Mental Status * Cognitive and Functional Status Question Answer Entry Date Author Because of a physical, menta l or emotional condition, does this person have difficulty doing errands alone such as visiting a doctor's office or shopping? No 10/16/2019 8:25 AM EDT Rock Perez MA Because of a physical, menta l or emotional condition, does this person have serious difficulty concentrating, remembering or making decisions? No 10/16/2019 8:25 AM EDT Danielle Perez MA * Because of a physical, mental or emotional condition, does this person have serious difficulty concentrating, remembering or making decisions? Answer Entry Date Author No 09/07/2017 9:10 AM Shun Walter RMA documented in this encounter Plan of Treatment Scheduled Orders Name Type Priority Associated Diagnoses Orde r Schedule URINALYSIS Lab Routine Urinary tract infection ONCE for 1 Occurrences starting 09/08/2017 until 10/13/2017 documented as of this encounter Goals Goal Patient Goal Type Associated Problems Recent Progress Patient-Stated? Author Blood Pressure < 140/90 Blood Pressure 126/76(2019 2:02 PM EDT) No Mingo Whatley MD Maintain a healthy diet, exercise regularly and maintain an ideal body weight General No Edith Sanchez LPN Stay Tobacco Free Lifestyle No Edith Sanchez LPN documented as of this encounter Visit Diagnoses Diagnosis Urinary tract infection Urinary tract infection, site not specified documented in this encounter Care Teams Special Officer Relationship Specialty Start Date End Date Mingo Whatley MD PCP - General Family Medicine 09/07/17 9 documented as of this encounter
--- OUTSIDE RECORDS SUMMARY | 2020-03-16 10:53 | XMS_ITS | Encounter Summary ---
Author Organization [place] [address] Care Team Providers Care Jukebox Operator Name Role Phone Candi Nuno MD Primary Care Provider [phone] Encounter Details Date Type Department Care Team (Latest Contact Info) Description 03/16/2020 10:53 AM EDT Hospital Encounter [facility] Referral Lab 1 [place] [address] Major depressive disorder, single episode, moderate (HCC) [...] moderate documented in this encounter Care Teams Jukebox Operator Relationship Specialty Start Date End Date Candi Nuno MD [address] [place] [address] PCP - General Family Medicine 05/23/19 04/10/23 documented as of this encounter
--- OUTSIDE RECORDS SUMMARY | 2025-03-27 15:19 | XMS_ITS | Clinical Summary ---
[facility] Address [address] [place] [address] Care Team Providers Care Blasting Contract Miner Name Role Phone Albert Oliveros MD Primary Care Provider [phone] Allergies Active Allergy Reactions Criticality Noted Date [...] (11/17/2021): Added automatically from request for surgery [id number] Anxiety 06/03/2021 Chronic back pain 06/03/2021 PSVT [...] of 2 - PCV) 05/23/2020 05/23/2019 ANNUAL PHYSICAL 07/06/2021 HEPATITIS C SCREENING 07/06/2021 COVID-19 Vaccine (1 - 2023-2 5 season) 2024 INFLUENZA VACCINE 04/30/2025 05/23/2019, , 08/18/2016, Additional history exists Medical Devices Implanted Type Area Furniture Painter Device Identifier Shelf Expiration Date Model / Serial / Lot Stent Mason/Divr Surpassevolve Ds 5x15/5.2mm - [id number] Implanted:Qty: 1 on 12/09/2021 by Car Ledezma MD at [facility] Implant DESIREE KEVEN 11/19/2022 [id number] Insurance SHEA WISDOM [id number] [facility] DUAL COMPLETE MEDIC [facility] MEDICAID Advance Directives * CPR (Attempt [...] Of Support Discussed With: Patient Care Teams Blasting Contract Miner Relationship Specialty Start Date End Date Albert Oliveros MD [address] [facility] [address] ATTN: [place] [address] PCP - General Emergency Medicine 06/02/21
--- OUTSIDE RECORDS SUMMARY | 2025-03-27 15:20 | XMS_ITS | Encounter Summary ---
Author Organization Healthcare Address [address] [place] [address] Care Team Providers Care Payroll Benefits Clerk Name Role Phone Alexx Madrid MD Primary Care Provider Harjinder Lora DO Primary Care Provider Encounter Details Date Type Department Care Team (Late st Contact Info) Description 05/28/2021 [facility] [address] [place] [address] [place], [place] [address] [place], [place] [phone] Chronic joint pain (Primary Dx) Social History [...] unspecified documented in this encounter Care Teams Payroll Benefits Clerk Relationship Specialty [place] [address] [place] [phone] PCP - General 12/11/20 06/17/21 Harjinder Lora DO [address] [place] [address] PCP - General 02/19/24 documented as of this encounter
--- OUTSIDE RECORDS SUMMARY | 2025-03-27 15:20 | XMS_ITS | Clinical Summary ---
Author Organization [facility] Address [address] [place] [address] Care Team Providers Care Mechanic And Welder Name Role Phone GuidoHarjinder Primary Care Provider [phone] Social History Tobacco Use Types Packs/Day Years Used Date Smoking Tobacco: Never Assessed Comments Unknown Sex and Gender Information Value Date Recorded Sex Assigned at Not on file Legal Sex Female 8:28 PM EDT Gender Identity Not on file Sexual Orientation Not on file Plan of Treatment Not on file Insurance [employer] MEDICARE [employer] MEDICAID Care Teams Mechanic And Welder Relationship Specialty Start Date End Date Harjinder Lora DO [address] [place] [address] PCP - General 02/19/24
--- OUTSIDE RECORDS SUMMARY | 2025-03-27 15:20 | XMS_ITS | Continuity of Care Document ---
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 12/07/2012 8:15 AM EDT - 12/07/2012 10:00 AM EDT Surgery [facility] [address] [place] [address] Syed Walker MD SHOULDER ARTHROSCOPY ROTATOR CUFF REPAIR/SUBACROMIAL DECOMPRESSION/MUMFOR D/BICEP TENODESIS 12/07/2012 6:20 AM EDT - 12/07/2012 11:45 AM EDT Hospital Encounter [facility] [address] [place] [address] Syed Walker MD Discharge Disposition: Home or Self Care 11/09/2012 1:59 PM EDT - 11/09/2012 11:59 PM EDT Hospital Encounter [facility] MRI [address] [place] [address] Syed [place], DPM Pain in joint, shoulder region; Superior glenoid labrum lesion Discharge Disposition: Home or Self Care 10/25/2012 Telephone [facility] [address] [place] [address] Ashley Argueta, [facility] Other 10/04/2012 Telephone [facility] [address] [place] [address] Roxy Almanzar, A Other 10/01/2012 11:38 AM EST - 10/01/2012 11:59 PM EST Hospital Encounter [facility] MRI [address] [place], [place] [id number] Mingo Gilman MD Lumbago Discharge Disposition: Home or Self Care 09/27/2012 Telephone [facility] [address] [place] [address] Hunt, Viral V, DO Results 09/24/2012 3:23 PM EST - 09/24/2012 11:59 PM EST Hospital Encounter [facility] [address] [place] [address] Hunt, Viral V, DO Left shoulder strain; Left shoulder pain; Frozen shoulder Discharge Disposition: Home or Self Care 09/18/2012 8:20 AM EST Office Visit [facility] [address] [place] [address] Hunt, Viral V, DO Anxiety (Primary Dx); Depression; Acute sinusitis; Left shoulder strain; Left shoulder pain; Frozen shoulder; DDD (degenerative disc disease); Cauda equina syndrome (HCC) 09/17/2012 Telephone [facility] [address] [place] [address] Hunt, Viral V, DO Referral 05/03/2012 Telephone [facility] [place] [place] [address] [place] [address] Lucita Feng RN Abnormal Radiology 04/19/2012 Telephone [facility] [address] [place] [address] Kylie Duran, Clerical Staff Abnormal Radiology 04/13/2012 10:15 AM EDT Hospital Encounter [facility] Mammography [address] [place] [address] Hunt, Viral V, DO Other screening mammogram Discharge Disposition: Home or Self Care 04/13/2012 10:16 AM EDT - 04/13/2012 11:59 PM EDT Hospital Encounter [facility] [place] [address] [place] [address] Hunt, Viral V, DO Abdominal mass Discharge Disposition: Home or Self Care 04/09/[address] [address] Hunt, Viral V, DO Referral 04/09/2012 11:10 AM EDT Office Visit [facility] [address] [place] [address] Hunt, Viral V, DO Abdominal mass (Primary Dx); Need for influenza vaccination; Other screening mammogram; Muscle spasm 03/08/[address] [address] Bouchra Teague RMA Medication Problem 03/08/2012 3:20 PM EDT Office Visit [address] [address] Hunt, Viral V, DO Anxiety; Depression; Chronic back pain; Fracture of right foot 03/05/2012 6:39 PM EDT - 03/05/2012 8:12 PM EDT [facility] [place] [address] Staci Espino MD Contusion, foot; Fracture of phalanx of toe Discharge Disposition: Home or Self Care 12/29/2011 1:47 PM EDT - 12/29/2011 11:59 PM EDT Hospital Encounter [facility] [address] [place] [address] Maggi Chi MD Neck pain Discharge Disposition: Home or Self Care 12/29/2011 1:46 PM EDT Hospital Encounter [facility] [address] [place] [address] Maggi Chi MD Lumbar back pain Discharge Disposition: Home or Self Care 12/29/2011 1:46 PM EDT Hospital Encounter [address] [place] [address] Maggi Chi MD Back pain, thoracic Discharge Disposition: Home or Self Care 12/22/2011 11:22 AM EDT - 12/22/2011 11:59 PM EDT Hospital Encounter [address] [place] [address] Maggi Chi MD Headaches, cluster Discharge Disposition: Home or Self Care 12/22/2011 11:06 AM EDT - 12/22/2011 11:21 AM EDT Hospital Encounter [facility] [place] [address] Maggi Chi MD Menopausal disorder Discharge Disposition: [...] the original. Sheryl does want to use [facility] 08/09/17 CSTA-08/22/17 [place] 08/22/17 UDS 12/18/17 Problem Noted Date Diagnosed Date History of ovarian cyst 03/19/2020 Family history of ovarian cancer 03/19/2020 Screening for colon cancer 06/17/2019 Overview (06/17/2019): Added automatically from request for surgery [id number] MDD (major depressive disord er), recurrent episode, [...] Hx Social History Smoking Status as of 03/27/2025 Tobacco Use Types Packs/Day Years Used Date [...] on file Medical Devices Implanted Type Area Non Morse Intercept Technician Device Identifier Shelf Expiration Date Model / Serial / Lot Screw Tenodesis Biocomposite 7mm X 10mm - [id number] Implanted:Qty: 1 on 12/07/2012 by Syed Walker MD at [facility] Left: Arm ARTHREX 11/27/2014 AR-1670BC / +[id number] / Screw Tenodesis Biocomposite 7mm X 10mm - [id number] Implanted:Qty: 1 on 12/07/2012 by Syed Walker MD at [facility] Left: Arm ARTHREX 11/27/2014 AR-1670BC / +[id number] / Putty I-Factor 1.0cc Syringe - [id number] Implanted:Qty: 1 on 09/04/2017 by Harjinder Cain MD at [facility] N/A: Spine Cervical CERAPEDICS 05/30/2020 700-010 / / [id number] Plate Bone Ambassador L18 Mm Spine 1 Level Nonsterile - [id number] Implanted:Qty: 1 on 09/04/2017 by Harjinder Cain MD at [facility] NA: Spine Cervical PARADIGM [employer] 05- / / Screw Variable Self Drilling/Tapping 4.0x14mm - [id number] Implanted:Qty: 4 on 09/04/2017 by Harjinder Cain MD at [facility] NA: Spine Cervical PARADIGM BIO[employer]ICES 05- / / Spacer Cervical Stealth 14 X 16 X 7 6 Degree - [id number] Implanted:Qty: 1 on 09/04/2017 by Harjinder Cain MD at [facility] NA: Spine Cervical PARADIGM [employer] [id number] / / Procedures Procedure Name Priority [...] CAGE OR Vg2 BONE AND PLATE, EVOKES #[id number], OR TABLE / OTHER, ASSIST, FLUOROReps notified-DT [...] Nontraumatic rupture of other tendon Special Needs CPT;68228 [id number] MRI SHOULDER LEFT WO CONTRAST Routine 11/09/2012 [...] - 4.200 mcIU/mL 03/19/2020 7:23 PM EDT [facility] Blood VENOUS BLOOD / Unknown Venipuncture / Unknown 03/19/2020 2:52 PM EDT 03/19/2020 2:52 PM EDT Narrative [facility] - 03/19/2020 7:23 PM EDT Ingestion of caterina doses of biotin (>5 mg/day) taken within 8 hours of drawing blood sample can interfere with this immunoassay test. us Candi Nuno MD CHEMISTRY ORDERABLES Final Res ult [facility] [address] [facility] , [place] [address] * CBC WITH DIFF (03/19/2020 2:52 PM [...] 7:04 PM EDT [facility] Ness Percent 9.0 % 03/19/2020 7:04 PM EDT [...] 03/19/2020 7:04 PM EDT [facility] Comment:Automated count of m etamyelocytes, myelocytes and promyelocytes. An absolute IG <0.1 is reported as 0.0. Lymph # 2.8 1.2 - 3.9 x10(3)/mcL 03/19/2020 7:04 PM EDT [facility] Ness # 0.6 0.3 - 0.9 x10(3)/mcL 03/19/2020 7:04 PM EDT [facility] Eos# 0.0 0.0 - 0.5 x10(3)/mcL 03/19/2020 7:04 PM EDT [facility] Baso # 0.0 0.0 - 0.1 x10(3)/mcL 03/19/2020 7:04 PM EDT [facility] Blood VENOUS BLOOD / Unknown Venipuncture / Unknown 03/19/2020 2:52 PM EDT 03/19/2020 2:52 PM EDT us Candi Nuno MD HEMATOLOGY ORDERABLES Final Re sult Performing Organization Address [facility] de Phone Number [facility] [address] [facility] , [place] [address] * CA 125 (03/19/2020 2:52 PM EDT) [facility] Ca 125 9.3 0.0 - 35.0 unit/mL 03/19/2020 7:55 PM EDT [facility] Comment:[facility] uses the [employer] Meat Process Worker CA125 II assay, which is intended to [...] ORDERABLES Final Res ult Performing Organization Address [facility] Co de Phone Number [facility] [address] [facility] , [place] [address] * LIPASE LEVEL (03/19/2020 2:52 PM EDT) Lipase Lvl 19 13 - 60 U/L 03/19/2020 7:23 PM EDT [facility] Blood VENOUS BLOOD / Unknown Venipuncture / Unknown 03/19/2020 2:52 PM EDT 03/19/2020 2:52 PM EDT Candi Nuno MD CHEMISTRY ORDERABLES Final Res ult Performing Organization Address City/[facility]/ZIP Co de Phone Number [facility] [address] [facility] , [place] [address] * AMYLASE LEVEL (03/19/2020 2:52 PM EDT) Amylase Lvl 66 28 - 100 U/L 03/19/2020 7:23 PM EDT [facility] Blood VENOUS BLOOD / Unknown Venipuncture / Unknown 03/19/2020 2:52 PM EDT 03/19/2020 2:52 PM EDT Candi Nuno MD CHEMISTRY ORDERABLES Final Res ult Performing Organization Address [facility] Co de Phone Number [facility] [address] [facility] , [place] [address] * (ABNORMAL) COMPREHENSIVE METABOLIC PANEL (03/19/2020 2:52 [...] 03/19/2020 7:23 PM EDT [facility] Calcium 9.9 8.6 - 10.4 mg/dL 03/19/2020 7:23 PM EDT [facility] Glucose Lvl 72(L) 74 - 100 mg/dL 03/19/2020 7:23 PM EDT [facility] BUN 10 6 - 20 mg/dL 03/19/2020 7:23 PM EDT [facility] Creatinine 1.04 0.51 - 1.30 mg/dL 03/19/2020 7:23 PM EDT [facility] Albumin 4.8 3.5 - 5.2 gm/dL 03/19/2020 7:23 PM EDT [facility] Total Protein 6.9 6.4 - 8.3 gm/dL 03/19/2020 7:23 PM EDT [facility] Bili Total 0.3 0.1 - 1.3 mg/dL 03/19/2020 7:23 PM EDT [facility] ALT 9 <=41 U/L 03/19/2020 7:23 PM EDT [facility] AST 20 <=40 U/L 03/19/2020 7:23 PM EDT [facility] Alk Phos 94 36 - 123 U/L 03/19/2020 7:23 PM EDT [facility] GFR Afr Am 71 >=60 mL/min/1.7 3 m2 03/19/2020 7:23 PM EDT [facility] GFR Non Afr Am 61 >=60 mL/min/1.7 3 m2 03/19/2020 7:23 PM EDT [facility] Comment: This estimated GFR was calculated [...] 2:52 PM EDT 03/19/2020 2:52 PM EDT Candi Nuno MD CHEMISTRY ORDERABLES Final Res ult [facility] [employer] [address] [facility] [address], [place] [address] [facility] [address] [facility] [place] [address] * SEP URINALYSIS POC (03/19/2020 2:51 PM EDT) UA Color POC Yellow 03/19/2020 2:53 PM EDT [facility] UA Appear POC Clear Clear 03/19/2020 2:53 PM EDT [facility] UA Gluc POC Negative Negative mg/dL 03/19/2020 2:53 PM EDT [facility] UA Bili POC Negative Negative 03/19/2020 2:53 PM EDT [facility] UA Ketones POC Negative Negative mg/dL 03/19/2020 2:53 PM EDT [facility] UA SG POC 1.010 1.001 - 1.035 03/19/2020 2:53 PM EDT [facility] UA Blood POC Negative Negative 03/19/2020 2:53 PM EDT [facility] UA pH POC 6.0 5.0 - 8.0 03/19/2020 2:53 PM EDT [facility] UA Protein POC Negative Negative mg/dL 03/19/2020 2:53 PM EDT [facility] UA Urobilinogen POC 0.2 0.2, 1.0 03/19/2020 2:53 PM EDT [facility] UA Nitrite POC Negative Negative 03/19/2020 2:53 PM EDT [facility] UA Leuk Est POC Negative Negative 0 2:53 PM EDT [facility] Urine STRUCTURE OF URINARY TRACT PROPER / Unknown 03/19/2020 2:51 PM EDT 03/19/2020 2:53 PM EDT Candi Nuno MD POINT OF CARE TEST ORDERABLES Final Result Performing Organization Address City/[facility]/ZIP Co de Phone Number [facility] [address] [id number] * MRI BRAIN ATTN PITUITARY W WO [...] changes are present. - Candi Nuno MD [facility] MRI ORDERABLES Final Resul t * (ABNORMAL) URINE CULTURE (NO STAIN) (10/16/2019 8:30 AM EDT) Only the most recent of2 resultswithin the time period is included. Culture Positive Growth(A) 10/18/2019 6:53 AM EDT [facility] Culture [id number] CFU/mL Escherichia coli SUSCEPTIBI LITY RESULT 10/18/2019 6:53 AM EDT [facility] Urine URINE SPECIMEN COLLECTION, CLEAN CATCH / [...] MICROBIOLOGY - GENERAL ORDERAB LES Final Result [facility] [address] [facility] , [address] [place] [id number] * POCT URINALYSIS AUTOMATED (10/16/2019 8:28 AM EDT) Only the most recent of4 resultswithin the time period is included. Color, UA SEP OFFICE Clarity, UA SEP OFFICE Glucose, UA norm G/DL% SEP OFFICE Bilirubin, UA neg POS/NEG SEP OFFICE Ketones, UA neg POS/NEG SEP integrated specialist Grav, UA 1.020 1.001 - 1.035 [...] 12:06 PM CLINICAL HISTORY: M25.512-Pain in left wwoyqnak-KYT-77-CM COMPARISON: 09/24/2012 PROCEDURE COMMENTS: Routine views. FINDINGS: [...] 12:06 PM CLINICAL HISTORY: M25.512-Pain in left qnompyue-MKZ-44-CM COMPARISON: 09/24/2012 PROCEDURE COMMENTS: Routine views. FINDINGS: [...] - 946 pg/mL 05/23/2019 8:50 PM EDT [facility] Folate >16.00(H) 4.50 - 16.00 ng/mL 05/23/2019 8:50 PM EDT [facility] Blood VENOUS BLOOD / Unknown Venipuncture / Unknown 05/23/2019 3:34 PM EDT 05/23/2019 3:34 PM EDT Narrative [facility] - 05/23/2019 8:50 PM EDT Ingestion of caterina doses of biotin (>5 mg/day) taken within 8 hours of drawing blood sample can interfere with this immunoassay test. us Candi Nuno MD CHEMISTRY ORDERABLES Final Res ult [facility] [address] [facility] , [place] [address] * HEMOGLOBIN A1C (05/23/2019 3:34 PM EDT) Hgb A1C 5.6 4.2 - 5.6 % 05/23/2019 8:38 PM EDT [facility] Est. Avg Glucose 114 mg/dL 05/23/2019 8:38 PM EDT [facility] Blood VENOUS BLOOD / Unknown Venipuncture / Unknown 05/23/2019 3:34 PM EDT 05/23/2019 3:34 PM EDT Narrative [facility] - 05/23/2019 8:38 PM EDT REFERENCE RANGE: Normal: 4.0-5.6% Pre-diabetes: 5.7-6.4% Provisional diagnosis of diabetes: >6.4% Hgb F>10% and anything which shortens red cell survival, such as hemolytic anemia, or unstable hemoglobin variants such as HbSS, HbSC, or HbCC, will lower the HbA1c value associated with a given level of glycemic control. us Candi Nuno MD CHEMISTRY ORDERABLES Final Res ult [facility] [address] [facility] , [address] [place] [id number] * LIPID SCREEN (05/23/2019 3:34 PM EDT) Only the most recent of3 resultswithin the time period is included. Cholesterol 190 <=200 mg/dL 05/23/2019 8:39 PM EDT [facility] Comment: < 200 Desirable 200 - 239 Borderline High >= 240 High Triglyceride 119 <=150 mg/dL 05/23/2019 8:39 PM EDT [facility] Comment: < 150 Normal 150 - 199 Borderline High 200 - 499 High >= 500 Very High HDL 74 >=40 mg/dL 05/23/2019 8:39 PM EDT [facility] Comment: > 60 Optimal 40 - 60 Acceptable < 40 Low LDL Calculated 92 <=100 mg/dL 05/23/2019 8:39 PM EDT [facility] Comment: < 100 Optimal 100 - 129 Near or above optimal 130 - 159 Borderline High 160 - 189 High >= 190 Very High Non-HDL-C Calculated 116 <=129 mg/dL 05/23/2019 8:39 PM EDT [facility] Comment: <130 Desirable 130-159 Above Desirable 160-189 Borderline High 190-219 High >= 220 Very High Fasting Specimen? Yes None 019 8:39 PM EDT [facility] Blood VENOUS BLOOD / Unknown Venipuncture / Unknown 05/23/2019 3:34 PM EDT 05/23/2019 3:34 PM EDT us Candi Nuno MD CHEMISTRY ORDERABLES Final Res ult [facility] [address] [place] [address] , [place] [address] * MRI THORACIC SPINE WO CONTRAST (05/14/2019 [...] 04/23/2019 3:48 PM CLINICAL HISTORY: M54.5-Low back oouj-HVV-05-CM Z78-Uwkjzwcvchq urinary glltswdzktsy-CDX-39-CM COMPARISON: Radiographs 12/02/2016. No prior MRI. PROCEDURE [...] 04/23/2019 3:48 PM CLINICAL HISTORY: M54.5-Low back lrcn-FDH-78-CM X31-Bdgwospwmkq urinary wchqmatwledd-UIA-54-CM COMPARISON: Radiographs 12/02/2016. No prior MRI. PROCEDURE [...] narrowing of neuralforamina bilaterally at L3-4. - [facility] Ary-Garcia HOOKER MACHINE TENDER IMG MRI ORDERABL ES Final Result * [...] WITHOUT CONTRAST, 04/23/2019 3:30 PM CLINICAL HISTORY: M54.8-Dzbjcewetun-KXS-10-CM Z98.1-Arthrodesis jkiycf-ATB-21-CM COMPARISON: MRI cervical spine 2018 PROCEDURE COMMENTS: [...] WITHOUT CONTRAST, 04/23/2019 3:30 PM CLINICAL HISTORY: M54.6-Pqkkkbratwk-WQG-10-CM Z98.1-Arthrodesis kcdlhp-LUC-93-CM COMPARISON: MRI cervical spine 2018 PROCEDURE COMMENTS: [...] changes at C4-C5 and C5-C6 levels. [facility] HOOK[facility] MACHINE TENDER IMG MRI ORDERABL ES Final Result * (ABNORMAL) HB-1 CUSTOM UDS PANEL-QUEST (12/25/2018 10:40 PM EDT) Only the most recent of2 resultswithin the time period is included. Prescribed Drug 1 Gabapentin [facility] Prescribed Drug 2 [place](TM) [facility] Ritalinic Acid NEGATIVE <100 ng/mL [facility] Comment:See Note 1 medMATCH Ritalinic Acid CONSISTENT [facility] medMatch Comments [facility] Comment:See Note 2 Prescribed Drug 1 Gabapentin [facility] Prescribed Drug 2 [place](TM) [facility] 6-Acetylmorphine,GC/MS NEGATIVE <10 ng/mL [facility] medMATCH 6 Acetylmorphine CONSISTENT [facility]Match Comments [facility] Comment:See Note 2 Prescribed Drug 1 Gabapentin [facility] Prescribed Drug 2 [place](TM) [facility] Creatinine, Urine 130.1 > or = 20.0 mg/dL [facility] UA Spec Grav 1.023 > or = 1.003 [facility] UA pH 5.9 4.5 - 9.0 [facility] Oxidant NEGATIVE <200 mcg/mL [facility] Amphetamines NEGATIVE <500 ng/mL [facility] medMATCH Amphetamines CONSISTENT [facility] Barbiturates NEGATIVE <300 ng/mL [facility]MATCH Barbiturates CONSISTENT [facility] Benzodiazepines NEGATIVE CONFIRMED <100 ng/mL [facility] ALPHAHYDROXYALPRAZOLAM NEGATIVE <25 ng/mL [facility] Comment:See Note 1 medMATCH aOH alprazolam CONSISTENT [facility] ALPHAHYDROXYMIDAZOLAM NEGATIVE <50 ng/mL [facility] Comment:See Note 1 MEDMATCH AOH MIDAZOLAM CONSISTENT [facility] ALPHAHYDROXYTRIAZOLAM-QU EST NEGATIVE <50 ng/mL [facility] Comment:See Note 1 medMATCH aOH triazolam CONSISTENT [facility] Aminoclonazepam NEGATIVE <25 ng/mL [facility] Comment:See Note 1 medMATCH Aminoclonazepam CONSISTENT [facility] Hydroxyethylflurazepam NEGATIVE <50 ng/mL [facility] Comment:See Note 1 MEDMATCH [place] ET FLURAZEPAM CONSISTENT [facility] LORAZEPAM-QUEST NEGATIVE <50 ng/mL [facility] Comment:See Note 1 medMATCH Lorazepam CONSISTENT [facility] NORDIAZEPAM-QUEST NEGATIVE <50 ng/mL [facility] Comment:See Note 1 medMATCH Nordiazepam CONSISTENT [facility] OXAZEPAM-QUEST NEGATIVE <50 ng/mL [facility] Comment:See Note 1 medMATCH Oxazepam [facility]STENT [facility] TEMAZEPAM-QUEST NEGATIVE <50 ng/mL [facility] Comment:See Note 1 medMATCH Temazepam CONSISTENT [facility] Marijuana Metabolite NEGATIVE <20 ng/mL [facility] medMATCH Marijuana Metab CONSISTENT [facility] Cocaine Metabolite POSITIVE(A) <150 ng/mL [facility] BENZOYLECGONINE-QUEST 124(H) <100 ng/mL [facility] Comment:See Note 1 medMATCH Benzoylecgonine INCONSISTENT (A) [facility] Methadone NEGATIVE <100 ng/mL [facility] medMATCH Methadone CONSISTENT [facility] Opiates NEGATIVE <100 ng/mL [facility] medMATCH Opiates INCONSISTENT (A) [facility] Oxycodone NEGATIVE <100 ng/mL [facility] medMATCH Oxycodone CONSISTENT [facility] Confirmation Testing Performed at: [facility] Comment: [facility], [facility], , [place] [address], Mining Captain: ANN HOWARD MD CLIA: [id number] medMatch Comments Qu est [facility] Comment: See Note 2 Note 1 This test was developed and its analytical performance characteristics have been determined by [facility]. It has not been cleared or approved [...] or to monitor progress of medical conditions. [facility] eWater[facility]CH comments are: - present when drug test results may be the result of metabolism of one or more drugs or when results are inconsistent with prescribed medication(s) listed. - may be blank when drug results are consistent with prescribed medication(s) listed. For assistance with interpreting these drug results, please contact a [facility] Toxicology Specialist: [phone] ( ), M-F, 8am-6pm EST. 12/25/2018 10:4 0 PM EDT 12/26/2018 8:15 PM EDT Mingo Whatley MD [facility] ORDERABLE (NON- [facility]) Final Result Performing Organization Address City/[facility]/ZIP Co de Phone Number [facility] [address] [place] [address] [facility] [address] [place] [address] * THYROID STIMULATING HORMONE (12/25/2018 9:21 AM EDT) Only the most recent of2 resultswithin the time period is included. TSH 2.140 0.270 - 4.200 mcIU/mL 12/25/2018 2:43 PM EDT [facility] Blood Venipuncture / Unknown 12/25/2018 9:21 AM EDT 12/25/2018 9:22 AM EDT Narrative PREFERRED [facility] - 12/25/2018 2:43 PM EDT Ingestion of caterina doses of biotin (>5 mg/day) taken within 8 hours of drawing blood sample can interfere with this immunoassay test. us Mingo Whatley MD CHEMISTRY ORDERABLES Ann l Result [facility] [address] [facility] , [place] [address] * T4, FREE (THYROXINE) (12/25/2018 9:21 AM EDT) Only the most recent of2 resultswithin the time period is included. [facility] Signature Free T4 1.08 0.80 - 2.00 ng/dL 12/25/2018 2:41 PM EDT [facility] Blood Venipuncture / Unknown 12/25/2018 9:21 AM EDT 12/25/2018 9:22 AM EDT Narrative [facility] - 12/25/2018 2:41 PM EDT Ingestion of caterina doses of biotin (>5 mg/day) taken within 8 hours of drawing blood sample can interfere with this immunoassay test. Mingo Whatley MD CHEMISTRY ORDERABLES Ann l Result Performing Organization Address [facility] Co de Phone Number [facility] [address] [place] [address], [place] [address] * INTRAOP AIRWAY PLACEMENT (04/03/2018 3:25 PM EDT) Narrative [facility] - 04/03/2018 3:25 PM EDT Garth Kelsey CRNA 04/03/2018 3:25 PM Intraop Airway Placement: Airway type: Nasal cannula salter Procedure Note Garth Kelsey CRNA - 04/03/2018 3:25 PM EDT Intraop Airway Placement: Airway type: Nasal cannula salter us Arnel Olsen MD AR ANESTHESIA Final Result Performing Organization Address [facility] [place] [place] [address] * (ABNORMAL) EMG (02/21/2018 4:16 PM EDT) Impressions [facility] - 02/21/2018 4:16 PM EDT Abnormal electrodiagnostic study There is EMG evidence of a 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 There is no EMG evidence of a right cervical radiculopathy or plexopathy. Narrative [facility] - 02/21/2018 4:16 PM EDT Nerve [...] ORDERABLES Final R esult Performing Organization Address [facility] [place] [address] * SCANNED RHYTHM STRIPS (09/06/2017 9:57 PM [...] is being made for record keeping purposes. Harjinder Cain MD IMG FLUOROSCOPY ORDERABLES F inal Result Performing Organization Address [facility] Co de Phone Number PACS * [...] through 10th images document placement of anterior C5-T6toxkkp plate. Total listed fluoroscopy time: 0.17 minutes. IMPRESSION: 1. Intraoperative documentation anterior C6-C7 ACDF. Harjinder Cain MD IMG DIAGNOSTIC IMAGING ORDER MARILEE Final Result * INTRAOP AIRWAY PLACEMENT (09/04/2017 11:31 AM EST) Narrative [facility] - 09/04/2017 11:31 AM EST Wander [...] Unchanged and Atraumatic Insertion attempts: 1 Title: SEVERO Procedure Note Wander Potter CRNA - 09/04/2017 [...] Unchanged and Atraumatic Insertion attempts: 1 Title: TUNNEL FORM PLACING SUPERVISOR us Pierre Webber MD AR ANESTHESIA Final Res ult Performing Organization Address [facility] Co de Phone Number [facility] [address] [place] [address] * (ABNORMAL) VITAMIN D 25 HYDROXY (08/31/2017 7:49 AM EST) Only the most recent of2 resultswithin the time period is included. Pathologist [facility] Vit D 25 OH 18.0(L) 30.0 - 120.0 ng/mL 08/31/2017 3:48 PM EST [facility] Comment: INTERPRETIVE INFORMATION: Vitamin D, 25-Hydroxy [...] ORDERABLES Ann l Result Performing Organization Address [facility] Co de Phone Number [facility] [address] [place] [address] * BASIC METABOLIC PANEL (08/31/2017 7:49 AM EST) [facility] Sodium 142 136 - 145 mmol/L 08/31/2017 9:10 AM EST [facility] Potassium 4.5 3.5 - 5.0 mmol/L 08/31/2017 9:10 AM EST [facility] Chloride 106 98 - 107 mmol/L 08/31/2017 9:10 AM [facility] Total CO2 28 22 - 29 mmol/L 08/31/2017 9:10 AM [facility] Anion Gap 8 7 - 16 mmol/L 08/31/2017 9:10 AM [facility] Calcium 9.5 8.6 - 10.2 mg/dL 08/31/2017 9:10 AM [facility] Glucose Lvl 93 74 - 100 mg/dL 08/31/2017 9:10 AM [facility] BUN 19 6 - 20 mg/dL 08/31/2017 9:10 AM [facility] Creatinine 1.16 0.51 - 1.30 mg/dL 08/31/2017 9:10 AM [facility] GFR Afr Am 63 mL/min/1.7 3 m2 08/31/2017 9:10 AM [facility] GFR Non Afr Am 55 mL/min/1.7 3 m2 08/31/2017 9:10 AM [facility] Comment: GFR Afr Am and GFR [...] Whatley MD CHEMISTRY ORDERABLES Ann moya Result [facility] [address] [place] [address] * BB HISTORY CHECK (08/29/2017 9:32 AM EST) BB HISTORY CHECK (1) No Previous History 08/29/2017 10:13 AM EST [facility] Blood VENOUS BLOOD / Unknown Venipuncture / Unknown 08/29/2017 9:32 AM EST 08/29/2017 10:02 AM EST Harjinder Cain MD BLOOD BANK ORDERABLES Final Result Performing Organization Address City/[facility] Co de Phone Number [facility] [address] [place] [address] * SURGERY DATE (08/29/2017 9:32 AM EST) Pathologist [facility] Surgery Date (1) Complete 08/29/2017 10:13 AM EST [facility] Blood VENOUS BLOOD / Unknown Venipuncture / Unknown 08/29/2017 9:32 AM EST 08/29/2017 10:02 AM EST Harjinder Cain MD BLOOD BANK ORDERABLES Final Result Performing Organization Address [facility] Co de Phone Number [facility] [address] [place] [address] * STAPHYLOCOCCUS AUREUS SCREEN (08/29/2017 9:32 AM EST) Pathologist [facility] Staph aureus PCR Not Detected Not Detected 08/30/2017 8:48 AM EST [facility] MRSA PCR Not Detected Not Detected 08/30/2017 8:48 AM EST [facility] Swab BOTH ANTERIOR NARES / Unknown 08/29/2017 9:32 AM EST 08/29/2017 10:02 AM EST Narrative [facility] - 08/30/2017 8:48 AM EST Staphylococcus aureus target DNA sequence is not detected. This qualitative assay is intended for the detection of Staphylococcus aureus proprietary sequences for the staphylococcal protein A (spa) gene, the gene for methicillin resistance (mecA), and the staphylococcal cassette chromosome mec (SCCmec) inserted into the SA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
[2025-03-27 15:37] LABS: Hematocrit 33.6 % (37.0-47.0); Hemoglobin 10.9 g/dL (12.2-16.2); Immature Granulocytes % 0.2 %; Mean Corpuscular HGB Conc 32.4 g/dL (31.8-35.4); Mean Corpuscular Hemoglobin 28.1 pg (27.0-31.2); Mean Corpuscular Volume 86.6 fl (81-99); Nucleated Red Blood Cells % 0 %; Platelet Count 350 K/mm3 (142-424); Red Blood Count 3.88 M/mm3 (4.20-5.40); Red Cell Distribution Width-SD 45.7 fL; White Blood Count 6.3 K/mm3 (4.8-10.8)
[2025-03-27 16:23] LABS: Albumin Level 4.2 g/dl (3.5-5.0); Chloride 105 mmol/L (98-107)
[2025-03-27 16:24] LABS: Potassium 3.8 mmoL/L (3.5-5.1); Sodium 139 mmol/L (136-145)
[2025-03-27 16:26] LABS: Alanine Aminotransferase 14 U/L (12-78); Anion Gap 9.8 mEq/L (5-15); Aspartate Amino Transferase 26 U/L (14-36); Bilirubin,Unconjugated 0.0 mg/dL (0.0-1.1); Blood Urea Nitrogen 16 mg/dl (7-17); Carbon Dioxide 28 mmol/L (22.0-30.0); Creatinine,Serum 1.20 mg/dl (0.52-1.04); Estimated Glomerular Filt Rate 46 ml/min (>60); GFR (African American) 56 ML/MIN (>60); Total Protein,Serum 7.1 g/dl (6.3-8.2); Triglycerides 265 mg/dl (30-150)
[2025-03-27 16:27] LABS: Alkaline Phosphatase 130 U/L (38-126); Bilirubin,Direct 0.3 mg/dl (0.0-0.4); Bilirubin,Indirect 0.0 mg/dL (0.0-0.9); Bilirubin,Total 0.3 mg/dl (0.2-1.3); Calcium 9.3 mg/dl (8.4-10.2); Cholesterol 194 mg/dl (140-200); Glucose 95 mg/dl (74-100); HDL Cholesterol 84 mg/dl (40-60); Magnesium 2.0 mg/dl (1.6-2.3)
[2025-03-27 16:49] LABS: Free T4 (Free Thyroxine) 1.03 ng/dl (0.78-2.19)
[2025-03-27 17:01] LABS: Thyroid Stimulating Hormone 0.82 uIU/mL (0.465-4.68)
== END 2025-03-27 23:59 | disposition home or self-care (01) ==
LOC: LAB 15:17
PROVIDERS: PCP Family Medicine; Visit Provider Internal Medicine
DX: E78.5 Hyperlipidemia, unspecified (principal); I10 Essential (primary) hypertension; R60.9 Edema, unspecified
CPT/HCPCS: 36415; 80048; 80061; 80076; 83735; 84439; 84443; 85025

== ENCOUNTER 2025-04-14 16:04 | Outpatient (CLI) | payer MEDICARE, MEDICAID, SELFPAY ==
--- OUTSIDE RECORDS SUMMARY | 2017-09-08 14:30 | XMS_ITS | Encounter Summary ---
Author Organization [place] [address] Care Team Providers Care Waterworks Employee Name Role Phone Mingo Wahtley MD Primary Care Provider Un available Encounter Details Date Type Department Care Team (Latest Contact Info) Description 09/08/2017 1:[address] [facility] Hospital Encounter [facility] Referral Lab [address] [phone] Harjinder Cain MD [address] [place] [address] Urinary tract infection Social History Tobacco Use [...] specified documented in this encounter Care Teams Waterworks Employee Relationship Specialty Start Date End Date Mingo Whatley MD PCP - General Family Medicine 09/07/17 9 documented as of this encounter
--- OUTSIDE RECORDS SUMMARY | 2020-03-16 10:53 | XMS_ITS | Encounter Summary ---
Author Organization [place] [address] Care Team Providers Care Risk And Compliance Analytics Director Name Role Phone Candi Nuno MD Primary Care Provider [phone] Encounter Details Date Type Department Care Team (Latest Contact Info) Description 03/16/2020 10:53 AM EDT Hospital Encounter [facility] Referral Lab [address] [place] [address] Major depressive disorder, single episode, moderate (HCC) [...] moderate documented in this encounter Care Teams Risk And Compliance Analytics Director Relationship Specialty Start Date End Date Candi Nuno MD [address] [place] [address] PCP - General Family Medicine 05/23/19 04/10/23 documented as of this encounter
--- OUTSIDE RECORDS SUMMARY | 2025-04-14 16:07 | XMS_ITS | Clinical Summary ---
[facility] Address [address] [place] [address] Care Team Providers Care Flask Pusher Name Role Phone Albert Oliveros MD Primary Care Provider [phone] Allergies Active Allergy Reactions Criticality Noted Date [...] (11/17/2021): Added automatically from request for surgery [id number] Anxiety 06/03/2021 Chronic back pain 06/03/2021 PSVT [...] COVID-19 Vaccine (1 - 2023-2 5 season) 2025 INFLUENZA VACCINE 04/30/2025 05/23/2019, , 08/18/2016, Additional history exists Medical Devices Implanted Type Area Ambulance Driver Device Identifier Shelf Expiration Date Model / Serial / Lot Stent Mason/Divr Surpassevolve Ds 5x15/5.2mm - [id number] Implanted:Qty: 1 on 12/09/2021 by Car Ledezma MD at [facility] Implant DESIREE KEVEN 11/19/2022 [id number] Insurance SHEA WISDOM [id number] [facility] DUAL COMPLETE MEDIC [facility] MEDICAID Advance Directives * CPR (Attempt to [...] Of Support Discussed With: Patient Care Teams Flask Pusher Relationship Specialty Start Date End Date Albert Oliveros MD [address] [place] [facility] [address] ATTN: [place] [address] PCP - General Emergency Medicine 06/02/21
--- OUTSIDE RECORDS SUMMARY | 2025-04-14 16:08 | XMS_ITS | Continuity of Care Document ---
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 Abstract [facility] [address] [facility] [address] Mingo Whatley MD 12/07/2012 8:15 AM EDT - 12/07/2012 10:00 AM EDT Surgery [facility] [address] [place] [address] Syed Walker MD SHOULDER ARTHROSCOPY ROTATOR CUFF REPAIR/SUBACROMIAL DECOMPRESSION/MUMFOR D/BICEP TENODESIS 12/07/2012 6:20 AM EDT - 12/07/2012 11:45 AM EDT Hospital Encounter [facility] [address] [place] [address] Syed Walker MD Discharge Disposition: Home or Self Care 11/09/2012 1:59 PM EDT - 11/09/2012 11:59 PM EDT Hospital Encounter [facility] MRI [address] [place] [address] Syed Lynn, DPM Pain in joint, shoulder region; Superior glenoid labrum lesion Discharge Disposition: Home or Self Care 10/25/2012 Telephone [facility] [address] [place] [address] Ashley Argueta, [facility] Other 10/04/2012 Telephone [facility] [address] [place] [address] Roxy Almanzar, A Other 10/01/2012 11:38 AM EST - 10/01/2012 11:59 PM EST Hospital Encounter [facility] MRI [address] [place], [place] [id number] Mingo Gilman MD Lumbago Discharge Disposition: Home or Self Care 09/27/2012 Telephone [facility] [address] [place] [address] Hunt, Viral V, DO Results 09/24/2012 3:23 PM EST - 09/24/2012 11:59 PM EST Hospital Encounter [facility] [address] [place] [address] Hunt, Viral V, DO Left shoulder strain; Left shoulder pain; Frozen shoulder Discharge Disposition: Home or Self Care 09/18/2012 8:20 AM EST Office Visit [facility] [address] [place] [address] Hunt, Viral V, DO Anxiety (Primary Dx); Depression; Acute sinusitis; Left shoulder strain; Left shoulder pain; Frozen shoulder; DDD (degenerative disc disease); Cauda equina syndrome (HCC) 09/17/2012 Telephone [facility] [address] [place] [address] Hunt, Viral V, DO Referral 05/03/2012 Telephone [facility] [place] [address] [place] [address] Lucita Feng RN Abnormal Radiology 04/19/2012 Telephone [facility] [address] [place] [place] [address] Kylie Duran, Clerical Staff Abnormal Radiology 04/13/2012 10:15 AM EDT Hospital Encounter [facility] Mammography [address] [place] [address] Hunt, Viral V, DO Other screening mammogram Discharge Disposition: Home or Self Care 04/13/2012 10:16 AM EDT - 04/13/2012 11:59 PM EDT Hospital Encounter [facility] CT [address] [place] [address] Hunt, Viral V, DO Abdominal mass Discharge Disposition: Home or Self Care 04/09/[address] [address] Hunt, Viral V, DO Referral 04/09/2012 11:10 AM EDT Office Visit [facility] [address] [place] [address] Hunt, Viral V, DO Abdominal mass (Primary Dx); Need for influenza vaccination; Other screening mammogram; Muscle spasm 03/08/[address] [address] Bouchra Teague RMA Medication Problem 03/08/2012 3:20 PM EDT Office Visit [address] [address] Hunt, Viral V, DO Anxiety; Depression; Chronic back pain; Fracture of right foot 03/05/2012 6:39 PM EDT - 03/05/2012 8:12 PM EDT Emergency [facility] [place] [address] Staci Espino MD Contusion, foot; Fracture of phalanx of toe Discharge Disposition: Home or Self Care 12/29/2011 1:47 PM EDT - 12/29/2011 11:59 PM EDT Hospital Encounter [facility] [address] [place] [address] Maggi Chi MD Neck pain Discharge Disposition: Home or Self Care 12/29/2011 1:46 PM EDT Hospital Encounter [facility] [address] [address] Maggi Chi MD Lumbar back pain Discharge Disposition: Home or Self Care 12/29/2011 1:46 PM EDT Hospital Encounter [address] [place] [address] Maggi Chi MD Back pain, thoracic Discharge Disposition: Home or Self Care 12/22/2011 11:22 AM EDT - 12/22/2011 11:59 PM EDT Hospital Encounter [address] [place] [place] [address] Maggi Chi MD Headaches, cluster Discharge Disposition: Home or Self Care 12/22/2011 11:06 AM EDT - 12/22/2011 11:21 AM EDT Hospital Encounter [facility] [place] [address] Maggi Chi MD Menopausal disorder Discharge Disposition: [...] the original. Sheryl does want to use [facility] 08/09/17 [place]STA-08/22/17 [place] 08/22/17 UDS 12/18/17 Problem Noted Date Diagnosed Date History of ovarian cyst 03/19/2020 Family history of ovarian cancer 03/19/2020 Screening for colon cancer 06/17/2019 Overview (06/17/2019): Added automatically from request for surgery [id number] MDD (major depressive disord er), recurrent episode, [...] Hx Social History Smoking Status as of 04/14/2025 Tobacco Use Types Packs/Day Years Used Date [...] on file Medical Devices Implanted Type Area Chandelier Maker Device Identifier Shelf Expiration Date Model / Serial / Lot Screw Tenodesis Biocomposite 7mm X 10mm - [id number] Implanted:Qty: 1 on 12/07/2012 by Syed Walker MD at [facility] Left: Arm ARTHREX 11/27/2014 AR-1670BC / +[id number] / Screw Tenodesis Biocomposite 7mm X 10mm - [id number] Implanted:Qty: 1 on 12/07/2012 by Syed Walker MD at [facility] Left: Arm ARTHREX 11/27/2014 AR-1670BC / +[id number] / Putty I-Factor 1.0cc Syringe - [id number] Implanted:Qty: 1 on 09/04/2017 by Harjinder Cain MD at [facility] N/A: Spine Cervical CERAPEDICS 05/30/2020 700-010 / / [id number] Plate Bone Ambassador L18 Mm Spine 1 Level Nonsterile - [id number] Implanted:Qty: 1 on 09/04/2017 by Harjinder Cain MD at [facility] NA: Spine Cervical PARADIGM [employer] 05- / / Screw Variable Self Drilling/Tapping 4.0x14mm - [id number] Implanted:Qty: 4 on 09/04/2017 by Harjinder Cain MD at [facility] NA: Spine Cervical PARADIGM BIODEVICES 05- / / Spacer Cervical Stealth 14 X 16 X 7 6 Degree - [id number] Implanted:Qty: 1 on 09/04/2017 by Harjinder Cain MD at [facility] NA: Spine Cervical PARADIGM [employer] [id number] / / Procedures Procedure Name Priority [...] CAGE OR Vg2 BONE AND PLATE, EVOKES #[id number], OR TABLE / OTHER, ASSIST, FLUOROReps notified-DT [...] Nontraumatic rupture of other tendon Special Needs CPT;[id number] MRI SHOULDER LEFT WO CONTRAST Routine 11/09/2012 [...] - 4.200 mcIU/mL 03/19/2020 7:23 PM EDT [facility] Blood VENOUS BLOOD / Unknown Venipuncture / Unknown 03/19/2020 2:52 PM EDT 03/19/2020 2:52 PM EDT Narrative [facility] - 03/19/2020 7:23 PM EDT Ingestion of caterina doses of biotin (>5 mg/day) taken within 8 hours of drawing blood sample can interfere with this immunoassay test. us Candi Nuno MD CHEMISTRY ORDERABLES Final Res ult [facility] [address] [facility] , [place] [address] * CBC WITH DIFF (03/19/2020 2:52 PM [...] 7:04 PM EDT [facility] [place] Percent 9.0 % 03/19/2020 7:04 PM EDT [...] 03/19/2020 7:04 PM EDT [facility], [facility] Comment:Automated count of m etamyelocytes, myelocytes and promyelocytes. An absolute IG <0.1 is reported as 0.0. Lymph # 2.8 1.2 - 3.9 x10(3)/mcL 03/19/2020 7:04 PM EDT [facility], [facility] Shelby # 0.6 0.3 - 0.9 x10(3)/mcL 03/19/2020 7:04 PM EDT [facility], [facility] Eos# 0.0 0.0 - 0.5 x10(3)/mcL 03/19/2020 7:04 PM EDT [facility], [facility] Baso # 0.0 0.0 - 0.1 x10(3)/mcL 03/19/2020 7:04 PM EDT [facility], [facility] Blood VENOUS BLOOD / Unknown Venipuncture / Unknown 03/19/2020 2:52 PM EDT 03/19/2020 2:52 PM EDT us Candi Nuno MD HEMATOLOGY ORDERABLES Final Re sult Performing Organization Address [facility] de Phone Number [facility] [address] [facility] , [place] [address] * CA 125 (03/19/2020 2:52 PM EDT) [facility] Ca 125 9.3 0.0 - 35.0 unit/mL 03/19/2020 7:55 PM EDT [facility], [facility] Comment:[facility] uses the Sharma Digital Print Operator CA125 II assay, which is intended [...] ORDERABLES Final Res ult Performing Organization Address [facility] Co de Phone Number [facility] [address] [facility] , [place] [address] * LIPASE LEVEL (03/19/2020 2:52 PM EDT) Lipase Lvl 19 13 - 60 U/L 03/19/2020 7:23 PM EDT [facility] Blood VENOUS BLOOD / Unknown Venipuncture / Unknown 03/19/2020 2:52 PM EDT 03/19/2020 2:52 PM EDT Candi Nuno MD CHEMISTRY ORDERABLES Final Res ult Performing Organization Address City/[facility]/ZIP Co de Phone Number [facility], [facility] [address] [facility] , [place] [address] * AMYLASE LEVEL (03/19/2020 2:52 PM EDT) Amylase Lvl 66 28 - 100 U/L 03/19/2020 7:23 PM EDT [facility] Blood VENOUS BLOOD / Unknown Venipuncture / Unknown 03/19/2020 2:52 PM EDT 03/19/2020 2:52 PM EDT Candi Nuno MD CHEMISTRY ORDERABLES Final Res ult Performing Organization Address [facility] Co de Phone Number [facility] [address] [facility] , [place] [address] * (ABNORMAL) COMPREHENSIVE METABOLIC PANEL (03/19/2020 2:52 [...] 03/19/2020 7:23 PM EDT [facility] Calcium 9.9 8.6 - 10.4 mg/dL 03/19/2020 7:23 PM EDT [facility] Glucose Lvl 72(L) 74 - 100 mg/dL 03/19/2020 7:23 PM EDT [facility] BUN 10 6 - 20 mg/dL 03/19/2020 7:23 PM EDT [facility] Creatinine 1.04 0.51 - 1.30 mg/dL 03/19/2020 7:23 PM EDT [facility] Albumin 4.8 3.5 - 5.2 gm/dL 03/19/2020 7:23 PM EDT [facility] Total Protein 6.9 6.4 - 8.3 gm/dL 03/19/2020 7:23 PM EDT [facility] Bili Total 0.3 0.1 - 1.3 mg/dL 03/19/2020 7:23 PM EDT [facility] ALT 9 <=41 U/L 03/19/2020 7:23 PM EDT [facility] AST 20 <=40 U/L 03/19/2020 7:23 PM EDT [facility] Alk Phos 94 36 - 123 U/L 03/19/2020 7:23 PM EDT [facility] GFR Afr Am 71 >=60 mL/min/1.7 3 m2 03/19/2020 7:23 PM EDT [facility] GFR Non Afr Am 61 >=60 mL/min/1.7 3 m2 03/19/2020 7:23 PM EDT [facility] Comment: This estimated GFR was [...] Nuno MD CHEMISTRY ORDERABLES Final Res ult [facility] [address] [facility] [address] [place] [address] [facility] [address] [place] [address] * SEP URINALYSIS POC (03/19/2020 2:51 PM EDT) UA Color POC Yellow 03/19/2020 2:53 PM EDT [facility] UA Appear POC Clear Clear 03/19/2020 2:53 PM EDT [facility] UA Gluc POC Negative Negative mg/dL 03/19/2020 2:53 PM EDT [facility] UA Bili POC Negative Negative 03/19/2020 2:53 PM EDT [facility] UA Ketones POC Negative Negative mg/dL 03/19/2020 2:53 PM EDT [facility] UA SG POC 1.010 1.001 - 1.035 03/19/2020 2:53 PM EDT [facility] UA Blood POC Negative Negative 03/19/2020 2:53 PM EDT [facility] UA pH POC 6.0 5.0 - 8.0 03/19/2020 2:53 PM EDT [facility] UA Protein POC Negative Negative mg/dL 03/19/2020 2:53 PM EDT [facility] UA Urobilinogen POC 0.2 0.2, 1.0 03/19/2020 2:53 PM EDT [facility] UA Nitrite POC Negative Negative 03/19/2020 2:53 PM EDT [facility] UA Leuk Est POC Negative Negative 0 2:53 PM EDT [facility] Urine STRUCTURE OF URINARY TRACT PROPER / Unknown 03/19/2020 2:51 PM EDT 03/19/2020 2:53 PM EDT Candi Nuno MD POINT OF CARE TEST ORDERABLES Final Result Performing Organization Address City/[facility]/ZIP Co de Phone Number [facility] [address] [phone] * MRI BRAIN ATTN PITUITARY W WO [...] changes are present. - Candi Nuno MD [facility] MRI ORDERABLES Final Resul t * (ABNORMAL) URINE CULTURE (NO STAIN) (10/16/2019 8:30 AM EDT) Only the most recent of2 resultswithin the time period is included. Culture Positive Growth(A) 10/18/2019 6:53 AM EDT [facility] 00481 CFU/mL Escherichia coli SUSCEPTIBI LITY RESULT 10/18/2019 6:53 AM EDT [facility] Urine URINE SPECIMEN COLLECTION, CLEAN CATCH / [...] MICROBIOLOGY - GENERAL ORDERAB LES Final Result [facility] [address] [facility] , [address] [place] [id number] * POCT URINALYSIS AUTOMATED (10/16/2019 8:28 AM EDT) Only the most recent of4 resultswithin the time period is included. Color, UA SEP OFFICE Clarity, UA SEP OFFICE Glucose, UA norm G/DL% [facility] Bilirubin, UA neg POS/NEG [facility] Ketones, UA neg POS/NEG SEP vacuum frame operator Grav, UA 1.020 1.001 - 1.035 G/DL [...] 12:06 PM CLINICAL HISTORY: M25.512-Pain in left jxfdmbqj-GAK-45-CM COMPARISON: 09/24/2012 PROCEDURE COMMENTS: Routine views. FINDINGS: [...] 12:06 PM CLINICAL HISTORY: M25.512-Pain in left juyqjung-GNC-98-CM COMPARISON: 09/24/2012 PROCEDURE COMMENTS: Routine views. FINDINGS: [...] - 946 pg/mL 05/23/2019 8:50 PM EDT [facility] Folate >16.00(H) 4.50 - 16.00 ng/mL 05/23/2019 8:50 PM EDT [facility] Blood VENOUS BLOOD / Unknown Venipuncture / Unknown 05/23/2019 3:34 PM EDT 05/23/2019 3:34 PM EDT Narrative [facility] - 05/23/2019 8:50 PM EDT Ingestion of caterina doses of biotin (>5 mg/day) taken within 8 hours of drawing blood sample can interfere with this immunoassay test. us Candi Nuno MD CHEMISTRY ORDERABLES Final Res ult [facility] [address] [facility] , [place] [address] * HEMOGLOBIN A1C (05/23/2019 3:34 PM EDT) Hgb A1C 5.6 4.2 - 5.6 % 05/23/2019 8:38 PM EDT [facility] Est. Avg Glucose 114 mg/dL 05/23/2019 8:38 PM EDT [facility] Blood VENOUS BLOOD / Unknown Venipuncture / Unknown 05/23/2019 3:34 PM EDT 05/23/2019 3:34 PM EDT Narrative [facility] - 05/23/2019 8:38 PM EDT REFERENCE RANGE: Normal: 4.0-5.6% Pre-diabetes: 5.7-6.4% Provisional diagnosis of diabetes: >6.4% Hgb F>10% and anything which shortens red cell survival, such as hemolytic anemia, or unstable hemoglobin variants such as HbSS, HbSC, or HbCC, will lower the HbA1c value associated with a given level of glycemic control. us Candi Nuno MD CHEMISTRY ORDERABLES Final Res ult [facility] [address] [facility] , [address] [place] [phone] * LIPID SCREEN (05/23/2019 3:34 PM EDT) Only the most recent of3 resultswithin the time period is included. Cholesterol 190 <=200 mg/dL 05/23/2019 8:39 PM EDT [facility] Comment: < 200 Desirable 200 - 239 Borderline High >= 240 High Triglyceride 119 <=150 mg/dL 05/23/2019 8:39 PM EDT [facility] Comment: < 150 Normal 150 - 199 Borderline High 200 - 499 High >= 500 Very High HDL 74 >=40 mg/dL 05/23/2019 8:39 PM EDT [facility] Comment: > 60 Optimal 40 - 60 Acceptable < 40 Low LDL Calculated 92 <=100 mg/dL 05/23/2019 8:39 PM EDT [facility] Comment: < 100 Optimal 100 - 129 Near or above optimal 130 - 159 Borderline High 160 - 189 High >= 190 Very High Non-HDL-C Calculated 116 <=129 mg/dL 05/23/2019 8:39 PM EDT [facility] Comment: <130 Desirable 130-159 Above Desirable 160-189 Borderline High 190-219 High >= 220 Very High Fasting Specimen? Yes None 019 8:39 PM EDT [facility] Blood VENOUS BLOOD / Unknown Venipuncture / Unknown 05/23/2019 3:34 PM EDT 05/23/2019 3:34 PM EDT us Candi Nuno MD CHEMISTRY ORDERABLES Final Res ult [facility] [address] [place] [address] , [place] [address] * MRI THORACIC SPINE WO CONTRAST (05/14/2019 [...] 04/23/2019 3:48 PM CLINICAL HISTORY: M54.5-Low back oeze-PHW-33-CM S43-Egrsczffpqd urinary qgdafpajacoh-PAX-63-CM COMPARISON: Radiographs 12/02/2016. No prior MRI. PROCEDURE [...] 04/23/2019 3:48 PM CLINICAL HISTORY: M54.5-Low back bruu-HJS-03-CM N35-Srzjcjvqjdw urinary phqecgbyagqx-EYA-45-CM COMPARISON: Radiographs 12/02/2016. No prior MRI. PROCEDURE [...] narrowing of neuralforamina bilaterally at L3-4. - [facility] [employer]ARD WORK[employer] IMG MRI ORDERABL ES Final Result * [...] WITHOUT CONTRAST, 04/23/2019 3:30 PM CLINICAL HISTORY: M54.2-Mogueionndw-QFG-10-CM Z98.1-Arthrodesis nvdifu-AQQ-15-CM COMPARISON: MRI cervical spine 2018 PROCEDURE COMMENTS: [...] WITHOUT CONTRAST, 04/23/2019 3:30 PM CLINICAL HISTORY: M54.6-Nizytlihvfq-DSL-10-CM Z98.1-Arthrodesis wjwwol-ZLD-16-CM COMPARISON: MRI cervical spine 2018 PROCEDURE COMMENTS: [...] changes at C4-C5 and C5-C6 levels. - [facility] MRI ORDERABL ES Final Result * (ABNORMAL) HB-1 CUSTOM UDS PANEL-QUEST (12/25/2018 10:40 PM EDT) Only the most recent of2 resultswithin the time period is included. Prescribed Drug 1 Gabapentin [facility] Prescribed Drug 2 [place](TM) [facility] Ritalinic Acid NEGATIVE <100 ng/mL [facility] Comment:See Note 1 medMATCH Ritalinic Acid CONSISTENT [facility] medMatch Comments [facility] Comment:See Note 2 Prescribed Drug 1 Gabapentin [facility] Prescribed Drug 2 [place](TM) [facility] 6-Acetylmorphine,GC/MS NEGATIVE <10 ng/mL [facility] medMATCH 6 Acetylmorphine CONSISTENT [facility] medMatch Comments [facility] Comment:See Note 2 Prescribed Drug 1 Gabapentin [facility] Prescribed Drug 2 [place](TM) [facility] Creatinine, Urine 130.1 > or = 20.0 mg/dL [facility] UA Spec Grav 1.023 > or = 1.003 [facility] UA pH 5.9 4.5 - 9.0 [facility] Oxidant NEGATIVE <200 mcg/mL [facility] Amphetamines NEGATIVE <500 ng/mL [facility] medMATCH Amphetamines CONSISTENT [facility] Barbiturates NEGATIVE <300 ng/mL [facility] medMATCH Barbiturates CONSISTENT [facility] Benzodiazepines NEGATIVE CONFIRMED <100 ng/mL [facility] ALPHAHYDROXYALPRAZOLAM NEGATIVE <25 ng/mL [facility] Comment:See Note 1 medMATCH aOH alprazolam CONSISTENT [facility] ALPHAHYDROXYMIDAZOLAM NEGATIVE <50 ng/mL [facility] Comment:See Note 1 MED[facility] AOH MIDAZOLAM CONSISTENT [facility] ALPHAHYDROXYTRIAZOLAM-QU EST NEGATIVE <50 ng/mL [facility] Comment:See Note 1 medMATCH aOH triazolam CONSISTENT [facility] Aminoclonazepam NEGATIVE <25 ng/mL [facility] Comment:See Note 1 medMATCH Aminoclonazepam CONSISTENT [facility] Hydroxyethylflurazepam NEGATIVE <50 ng/mL [facility] [facility] Comment:See Note 1 MEDMATCH [place] ET FLURAZEPAM CONSISTENT [facility] LORAZEPAM-QUEST NEGATIVE <50 ng/mL [facility] Comment:See Note 1 medMATCH Lorazepam CONSISTENT [facility] NORDIAZEPAM-QUEST NEGATIVE <50 ng/mL [facility] Comment:See Note 1 medMATCH Nordiazepam CONSISTENT [facility] OXAZEPAM-QUEST NEGATIVE <50 ng/mL [facility] Comment:See Note 1 medMATCH Oxazepam CONSISTENT [facility] TEMAZEPAM-QUEST NEGATIVE <50 ng/mL [facility] Comment:See Note 1 medMATCH Temazepam CONSISTENT [facility] Marijuana Metabolite NEGATIVE <20 ng/mL [facility] medMATCH Marijuana Metab CONSISTENT [facility] Cocaine Metabolite POSITIVE(A) <150 ng/mL [facility] [employer] [facility] BENZOYLECGONINE-QUEST 124(H) <100 ng/mL [employer] [facility] Comment:See Note 1 medMATCH Benzoylecgonine INCONSISTENT (A) [facility] Methadone NEGATIVE <100 ng/mL [facility] Diagnostics [facility] medMATCH Methadone CONSISTENT [facility] Opiates NEGATIVE <100 ng/mL [facility] medMATCH Opiates INCONSISTENT (A) [facility] Oxycodone NEGATIVE <100 ng/mL [facility] [employer] [facility] medMATCH Oxycodone CONSISTENT [facility] [employer] [facility] Confirmation Testing Performed at: [employer] [facility] Comment: [facility], , [place] [address], Claims Collector: ANN HOWARD MD CLIA: [id number] medMatch Comments Qu est [employer] [facility] Comment: See Note 2 Note 1 This test was developed and its analytical performance characteristics have been determined by [employer]. It has not been cleared or approved [...] or to monitor progress of medical conditions. [employer] comments are: - present when drug test results may be the result of metabolism of one or more drugs or when results are inconsistent with prescribed medication(s) listed. - may be blank when drug results are consistent with prescribed medication(s) listed. For assistance with interpreting these drug results, please contact a [employer] Toxicology Specialist: [phone] ( ), M-F, 8am-6pm EST. 12/25/2018 10:4 0 PM EDT 12/26/2018 8:15 PM EDT Mingo Whatley MD [facility]-PDM ORDERABLE (NON- [facility]) Final Result Performing Organization Address City/[facility]/ZIP Co de Phone Number [facility] [address] [place] [address] [facility] [address] [place] [address] * THYROID STIMULATING HORMONE (12/25/2018 9:21 AM EDT) Only the most recent of2 resultswithin the time period is included. TSH 2.140 0.270 - 4.200 mcIU/mL 12/25/2018 2:43 PM EDT [employer] Blood Venipuncture / Unknown 12/25/2018 9:21 AM EDT 12/25/2018 9:22 AM EDT Narrative PREFERRED [employer] - 12/25/2018 2:43 PM EDT Ingestion of caterina doses of biotin (>5 mg/day) taken within 8 hours of drawing blood sample can interfere with this immunoassay test. us Mingo Whatley MD CHEMISTRY ORDERABLES Ann l Result [employer] [address] [facility] , [place] [address] * T4, FREE (THYROXINE) (12/25/2018 9:21 AM EDT) Only the most recent of2 resultswithin the time period is included. [facility] Signature Free T4 1.08 0.80 - 2.00 ng/dL 12/25/2018 2:41 PM EDT [employer] Blood Venipuncture / Unknown 12/25/2018 9:21 AM EDT 12/25/2018 9:22 AM EDT Narrative [employer] - 12/25/2018 2:41 PM EDT Ingestion of caterina doses of biotin (>5 mg/day) taken within 8 hours of drawing blood sample can interfere with this immunoassay test. Mingo Whatley MD CHEMISTRY ORDERABLES Ann l Result Performing Organization Address [facility] Co de Phone Number [facility] [employer] [address] [place] [address], [place] [address] * INTRAOP AIRWAY PLACEMENT (04/03/2018 3:25 PM EDT) Narrative [facility] - 04/03/2018 3:25 PM EDT Garth Kelsey CRNA 04/03/2018 3:25 PM Intraop Airway Placement: Airway type: Nasal cannula salter Procedure Note Garth Kelsey CRNA - 04/03/2018 3:25 PM EDT Intraop Airway Placement: Airway type: Nasal cannula salter us Arnel Olsen MD [place] ANESTHESIA Final Result Performing Organization Address [facility] [place] [address] * (ABNORMAL) EMG (02/21/2018 4:16 PM EDT) Impressions [facility] - 02/21/2018 4:16 PM EDT Abnormal electrodiagnostic study There is EMG evidence of a 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 There is no EMG evidence of a right cervical radiculopathy or plexopathy. Narrative [facility] - 02/21/2018 4:16 PM [...] ORDERABLES Final R esult Performing Organization Address [facility] [place] [address] * SCANNED RHYTHM STRIPS (09/06/2017 9:57 PM [...] ORDERABLES F inal Result Performing Organization Address [facility] Co de Phone Number PACS [...] through 10th images document placement of anterior C5-A3acvqfp plate. Total listed fluoroscopy time: 0.17 minutes. IMPRESSION: 1. Intraoperative documentation anterior C6-C7 ACDF. Harjinder Cain MD IMG DIAGNOSTIC IMAGING ORDER MARILEE Final Result * INTRAOP AIRWAY PLACEMENT (09/04/2017 11:31 AM EST) Narrative [facility] - 09/04/2017 11:31 AM [...] Unchanged and Atraumatic Insertion attempts: 1 Title: COMMUNICATIONS PROFESSOR us Pierre Webber MD [place] ANESTHESIA Final Res ult Performing Organization Address [facility] Co de Phone Number [facility] [address] [place] [address] * (ABNORMAL) VITAMIN D 25 HYDROXY (08/31/2017 7:49 AM EST) Only the most recent of2 resultswithin the time period is included. Pathologist [facility] Vit D 25 [place] 18.0(L) 30.0 - 120.0 ng/mL 08/31/2017 3:48 PM EST [facility] Comment: INTERPRETIVE INFORMATION: Vitamin D, [...] ORDERABLES Ann l Result Performing Organization Address [facility] Co de Phone Number [facility] [address] [place] [address] * BASIC METABOLIC PANEL (08/31/2017 7:49 AM EST) [facility] Sodium 142 136 - 145 mmol/L 08/31/2017 9:10 AM EST [facility] Potassium 4.5 3.5 - 5.0 mmol/L 08/31/2017 9:10 AM EST [facility] Chloride 106 98 - 107 [...] Whatley MD CHEMISTRY ORDERABLES Ann moya Result [facility] [address] [place] [address] * BB HISTORY CHECK (08/29/2017 9:32 AM EST) BB HISTORY CHECK (1) No Previous History 08/29/2017 10:13 AM EST [facility] Blood VENOUS BLOOD / Unknown Venipuncture / Unknown 08/29/2017 9:32 AM EST 08/29/2017 10:02 AM EST Harjinder Cain MD BLOOD BANK ORDERABLES Final Result Performing Organization Address City/[facility] Co de Phone Number [facility] [address] [place] [address] * SURGERY DATE (08/29/2017 9:32 AM EST) Pathologist [facility] Surgery Date (1) Complete 08/29/2017 10:13 AM EST [facility] Blood VENOUS BLOOD / Unknown Venipuncture / Unknown 08/29/2017 9:32 AM EST 08/29/2017 10:02 AM EST Harjinder Cain MD BLOOD BANK ORDERABLES Final Result Performing Organization Address [facility] Co de Phone Number [facility] [address] [place] [address] * STAPHYLOCOCCUS AUREUS SCREEN (08/29/2017 9:32 AM EST) Pathologist [facility] Staph aureus PCR Not Detected Not Detected 08/30/2017 8:48 AM EST [facility] MRSA PCR Not Detected Not Detected 08/30/2017 8:48 AM EST [facility] Swab BOTH ANTERIOR NARES / Unknown 08/29/2017 9:32 AM EST 08/29/2017 10:02 AM EST Narrative [facility] - 08/30/2017 8:48 AM EST Staphylococcus aureus target DNA sequence is not detected. This qualitative assay is intended for the detection of Staphylococcus aureus proprietary sequences for the staphylococcal protein A (spa) gene, the gene for methicillin resistance (mecA), and the staphylococcal cassette chromosome mec (SCCmec) inserted into the SA chromosomal attB site. This assay utilizes real time PCR on the [employer] GeneXpert Infinity, and its performance has been verified by the [facility]. A negative result does not [...] has been developed and validated by the [facility] laboratory. Detailed methodology is available upon request. Harjinder Cain MD MICROBIOLOGY - GENERAL ORDER MARILEE Final Result Performing Organization Address City/[facility]/ZIP Co de Phone Number [facility] [address] [place] [address] * ABORH (08/29/2017 9:32 AM EST) ABORH Int O POS 08/29/2017 11:21 AM EST [facility] Blood VENOUS BLOOD / Unknown Venipuncture / Unknown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
--- OUTSIDE RECORDS SUMMARY | 2025-04-14 16:08 | XMS_ITS | Encounter Summary ---
Author Organization Healthcare Address [address] [place] [address] Care Team Providers Care Game Preserve Manager Name Role Phone Alexx Madrid MD Primary Care Provider Harjinder Lora DO Primary Care Provider Encounter Details Date Type Department Care Team (Late st Contact Info) Description 05/28/2021 Community [facility] Community Practice [address] [place] [address] [place], [place] [address] [place], [place] [id number] Chronic joint pain (Primary Dx) Social History [...] unspecified documented in this encounter Care Teams Game Preserve Manager Relationship Specialty [place] [address] [place] [phone] PCP - General 12/11/20 06/17/21 Harjinder Lora DO [address] [place] [address] PCP - General 02/19/24 documented as of this encounter
--- OUTSIDE RECORDS SUMMARY | 2025-04-14 16:08 | XMS_ITS | Clinical Summary ---
Author Organization [facility] Address [address] [place] [address] Care Team Providers Care Cuff Setter Name Role Phone GuidoHarjinder Primary Care Provider [phone] Social History Tobacco Use Types Packs/Day Years Used Date Smoking Tobacco: Never Assessed Comments Unknown Sex and Gender Information Value Date Recorded Sex Assigned at Not on file Legal Sex Female 8:28 PM EDT Gender Identity Not on file Sexual Orientation Not on file Plan of Treatment Not on file Insurance [employer] MEDICARE [employer] MEDICAID Care Teams Cuff Setter Relationship Specialty Start Date End Date Harjinder Lora DO [address] [place] [address] PCP - General 02/19/24
--- NOTE | 2025-04-14 16:30 | MM_ITS ---
PROCEDURE INFORMATION: Exam: MG Bilateral Screening 3D Mammography Exam date and time: 04/14/2025 4:06 PM Age: 60 years old Clinical indication: Screening examination TECHNIQUE: Imaging protocol: Bilateral Screening tomosynthesis and 2D mammography including computer-aided detection (CAD) when performed. COMPARISON: 1. MG MM DIG SCREENING MAMM BI W/CAD 04/29/2020 8:06 AM 2. MG MM MAMMO DIGITAL DIAGNOSTIC W CAD BILAT 01/27/2016 12:04 PM FINDINGS: MAMMOGRAPHY: Breast composition: The breasts are almost entirely fatty. Mass: None. Architectural distortion: None. Calcifications: No suspicious calcifications. Asymmetric density: None. Skin thickening: None. Axillary adenopathy: None. IMPRESSION: No mammographic evidence of malignancy. Annual screening is recommended unless otherwise clinically indicated. ASSESSMENT: BI-RADS Category 1: Negative.
== END 2025-04-14 23:59 | disposition home or self-care (01) ==
LOC: RAD 16:05
PROVIDERS: PCP Family Medicine; Visit Provider Family Medicine
DX: Z12.31 Encounter for screening mammogram for malignant neoplasm of breast (principal)
CPT/HCPCS: 77063; 77067

== ENCOUNTER 2025-04-20 11:39 | Observation (INO) | payer MEDICARE, MEDICAID, SELFPAY ==
--- OUTSIDE RECORDS SUMMARY | 2017-09-08 14:30 | XMS_ITS | Encounter Summary ---
Author Organization [place] [address] Care Team Providers Care Rush Seater Name Role Phone Mingo Whatley MD Primary Care Provider Un available Encounter Details Date Type Department Care Team (Latest Contact Info) Description 09/08/2017 1:30 PM [facility] Hospital Encounter [facility] Referral Lab [address] [phone] Harjinder Cain MD [address] [place] [address] Urinary tract infection Social History Tobacco Use [...] specified documented in this encounter Care Teams Rush Seater Relationship Specialty Start Date End Date Mingo Whatley MD PCP - General Family Medicine 09/07/17 9 documented as of this encounter
--- OUTSIDE RECORDS SUMMARY | 2020-03-16 10:53 | XMS_ITS | Encounter Summary ---
Author Organization [place] [address] Care Team Providers Care Shirt Trimmer Name Role Phone Candi Nuno MD Primary Care Provider [phone] Encounter Details Date Type Department Care Team (Latest Contact Info) Description 03/16/2020 10:53 AM EDT Hospital Encounter [facility] Referral Lab 1 [place] [address] Major depressive disorder, single episode, moderate (HCC) [...] Assessment Author No 10/16/2019 8:25 AM EDT Ralu Perez MA * Because of a physical, [...] moderate documented in this encounter Care Teams Shirt Trimmer Relationship Specialty Start Date End Date Candi Nuno MD [address] [place] [address] PCP - General Family Medicine 05/23/19 04/10/23 documented as of this encounter
[2025-04-20] VITALS (18 sets, daily range): BP systolic 83–154; BP diastolic 58–97; PULSE 60–86; RESP 12–40; TEMP 36.7–36.8; O2SAT 91–98; BMI 28.5; BMI 28.3
--- NOTE | 2025-04-20 11:45 | PC.NURSE ---
Patients FSBS is 142.
--- OUTSIDE RECORDS SUMMARY | 2025-04-20 11:50 | XMS_ITS | Clinical Summary ---
[facility] Address [address] [place] [address] Care Team Providers Care Frozen Meat Cutter Name Role Phone Albert Oliveros MD Primary Care Provider [phone] Allergies Active Allergy Reactions Criticality Noted Date [...] (11/17/2021): Added automatically from request for surgery [id number] Anxiety 06/03/2021 Chronic back pain 06/03/2021 PSVT [...] ANNUAL PHYSICAL 07/06/2021 HEPATITIS C SCREENING 07/06/2021 INFLUENZA VACCINE 02/28/2025 05/23/2019, , 08/18/2016, Additional history exists Medical Devices Implanted Type Area Manager Philosophy Device Identifier Shelf Expiration Date Model / Serial / Lot Stent Mason/Divr Surpassevolve Ds 5x15/5.2mm - [id number] Implanted:Qty: 1 on 12/09/2021 by Car Ledezma MD at [facility] Implant DESIREE KEVEN 11/19/2022 [id number] Insurance [facility] DUAL COMPLETE MEDIC [place] MEDICAID Advance Directives * CPR (Attempt to [...] Of Support Discussed With: Patient Care Teams Frozen Meat Cutter Relationship Specialty Start Date End Date Albert Oliveros MD [address] [facility] [address] ATTN: [place] [address] PCP - General Emergency Medicine 06/02/21
--- OUTSIDE RECORDS SUMMARY | 2025-04-20 11:50 | XMS_ITS | Clinical Summary ---
Author Organization [facility] Address [address] [place] [address] Care Team Providers Care Fire Management Specialist Name Role Phone GuidoHarjinder Primary Care Provider [phone] Social History Tobacco Use Types Packs/Day Years Used Date Smoking Tobacco: Never Assessed Comments Unknown Sex and Gender Information Value Date Recorded Sex Assigned at Not on file Legal Sex Female 8:28 PM EDT Gender Identity Not on file Sexual Orientation Not on file Plan of Treatment Not on file Insurance [employer] MEDICARE [employer] MEDICAID Care Teams Fire Management Specialist Relationship Specialty Start Date End Date Harjinder Lora DO [address] [place] [address] PCP - General 02/19/24
--- OUTSIDE RECORDS SUMMARY | 2025-04-20 11:50 | XMS_ITS | Encounter Summary ---
Author Organization Healthcare Address [address] [place] [address] Care Team Providers Care Fabric Cutter Name Role Phone Alexx Madrid MD Primary Care Provider Harjinder Lora DO Primary Care Provider Encounter Details Date Type Department Care Team (Late st Contact Info) Description 05/28/2021 Community [facility] Community Practice [address] [place] [address] [place], [place] [address] [place], [place] [phone] Chronic joint pain (Primary Dx) Social History [...] unspecified documented in this encounter Care Teams Fabric Cutter Relationship Specialty [place] [address] [place] [phone] PCP - General 12/11/20 06/17/21 Harjinder Lora DO [address] [place] [address] PCP - General 02/19/24 documented as of this encounter
--- OUTSIDE RECORDS SUMMARY | 2025-04-20 11:50 | XMS_ITS | Continuity of Care Document ---
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 8:15 AM EDT - 12/07/2012 10:00 AM EDT Surgery [facility] [address] [place] [address] Syed Walker MD SHOULDER ARTHROSCOPY ROTATOR CUFF REPAIR/SUBACROMIAL DECOMPRESSION/MUMFOR D/BICEP TENODESIS 12/07/2012 6:20 AM EDT - 12/07/2012 11:45 AM EDT Hospital Encounter [facility] [address] [facility] [place] [address] Syed Walker MD Discharge Disposition: Home or Self Care 11/09/2012 1:59 PM EDT - 11/09/2012 11:59 PM EDT Hospital Encounter [facility] MRI [address] [place] [address] Syed Lynn, DPM Pain in joint, shoulder region; Superior glenoid labrum lesion Discharge Disposition: Home or Self Care 10/25/2012 Telephone [facility] [address] [place] [address] Ashley Argueta, [facility] Other 10/04/2012 Telephone [facility] [address] [place] [address] Roxy Almanzar, A Other 10/01/2012 11:38 AM EST - 10/01/2012 11:59 PM EST Hospital Encounter [facility] MRI [address] [place], [place] [id number] Mingo Gilman MD Lumbago Discharge Disposition: Home or Self Care 09/27/2012 Telephone [facility] [address] [place] [address] Hunt, Viral V, DO Results 09/24/2012 3:23 PM EST - 09/24/2012 11:59 PM EST Hospital Encounter [facility] [address] [place] [address] Hunt, Viral V, DO Left shoulder strain; Left shoulder pain; Frozen shoulder Discharge Disposition: Home or Self Care 09/18/2012 8:20 AM EST Office Visit [facility] [address] [place] [address] Hunt, Viral V, DO Anxiety (Primary Dx); Depression; Acute sinusitis; Left shoulder strain; Left shoulder pain; Frozen shoulder; DDD (degenerative disc disease); Cauda equina syndrome (HCC) 09/17/2012 Telephone [facility] [address] [place] [address] Hunt, Viral V, DO Referral 05/03/2012 Telephone [facility] [place] [address] [place] [address] Lucita Feng RN Abnormal Radiology 04/19/2012 Telephone [facility] [address] [place] [address] Kylie Duran, Clerical Staff Abnormal Radiology 04/13/2012 10:15 AM EDT Hospital Encounter [facility] Mammography [address] [place] [address] Hunt, Viral V, DO Other screening mammogram Discharge Disposition: Home or Self Care 04/13/2012 10:16 AM EDT - 04/13/2012 11:59 PM EDT Hospital Encounter [facility] CT [address] [place] [address] Hunt, Viral V, DO Abdominal mass Discharge Disposition: Home or Self Care 04/09/[address] [address] Hunt, Viral V, DO Referral 04/09/2012 11:10 AM EDT Office Visit [facility] [address] [place] [address] Hunt, Viral V, DO Abdominal mass (Primary Dx); Need for influenza vaccination; Other screening mammogram; Muscle spasm 03/08/[address] [address] Bouchra Teague RMA Medication Problem 03/08/2012 3:20 PM EDT Office Visit [address] [address] Hunt, Viral V, DO Anxiety; Depression; Chronic back pain; Fracture of right foot 03/05/2012 6:39 PM EDT - 03/05/2012 8:12 PM EDT Emergency [facility] [place] [address] Staci Espino MD Contusion, foot; Fracture of phalanx of toe Discharge Disposition: Home or Self Care 12/29/2011 1:47 PM EDT - 12/29/2011 11:59 PM EDT Hospital Encounter [facility] [address] [place] [address] Maggi Chi MD Neck pain Discharge Disposition: Home or Self Care 12/29/2011 1:46 PM EDT Hospital Encounter [facility] [place] [address] [address] Maggi Chi MD Lumbar back pain Discharge Disposition: Home or Self Care 12/29/2011 1:46 PM EDT Hospital Encounter [address] [place] [address] Maggi Chi MD Back pain, thoracic Discharge Disposition: Home or Self Care 12/22/2011 11:22 AM EDT - 12/22/2011 11:59 PM EDT Hospital Encounter [address] [place] [address] Maggi Chi MD Headaches, cluster Discharge Disposition: Home or Self Care 12/22/2011 11:06 AM EDT - 12/22/2011 11:21 AM EDT Hospital Encounter [facility] [place] [address] Maggi Chi MD Menopausal disorder Discharge Disposition: [...] the original. Sheryl does want to use [facility] 08/09/17 CSTA-08/22/17 [place] 08/22/17 UDS 12/18/17 Problem Noted Date Diagnosed Date History of ovarian cyst 03/19/2020 Family history of ovarian cancer 03/19/2020 Screening for colon cancer 06/17/2019 Overview (06/17/2019): Added automatically from request for surgery [id number] MDD (major depressive disord er), recurrent episode, [...] Hx Social History Smoking Status as of 04/20/2025 Tobacco Use Types Packs/Day Years Used Date [...] on file Medical Devices Implanted Type Area Manager Entry Device Identifier Shelf Expiration Date Model / Serial / Lot Screw Tenodesis Biocomposite 7mm X 10mm - [id number] Implanted:Qty: 1 on 12/07/2012 by Syed Walker MD at [facility] Left: Arm ARTHREX 11/27/2014 AR-1670BC / +[id number] / Screw Tenodesis Biocomposite 7mm X 10mm - [id number] Implanted:Qty: 1 on 12/07/2012 by Syed Walker MD at [facility] Left: Arm ARTHREX 11/27/2014 AR-1670BC / +[id number] / Putty I-Factor 1.0cc Syringe - [id number] Implanted:Qty: 1 on 09/04/2017 by Harjinder Cain MD at [facility] N/A: Spine Cervical CERAPEDICS 05/30/2020 700-010 / / [id number] Plate Bone Ambassador L18 Mm Spine 1 Level Nonsterile - [id number] Implanted:Qty: 1 on 09/04/2017 by Harjinder Cain MD at [facility] NA: Spine Cervical PARADIGM eÇiftEVMetaStat 05- / / Screw Variable Self Drilling/Tapping 4.0x14mm - [id number] Implanted:Qty: 4 on 09/04/2017 by Harjinder Cain MD at [facility] NA: Spine Cervical PARADIGM BIODEVICES 05- / / Spacer Cervical Stealth 14 X 16 X 7 6 Degree - [id number] Implanted:Qty: 1 on 09/04/2017 by Harjinder Cain MD at [facility] NA: Spine Cervical PARADIGM eÇiftEVMetaStat [id number] / / Procedures Procedure Name Priority [...] CAGE OR Vg2 BONE AND PLATE, EVOKES #[id number], OR TABLE / OTHER, ASSIST, FLUOROReps notified-DT [...] Nontraumatic rupture of other tendon Special Needs CPT;[id number] MRI SHOULDER LEFT WO CONTRAST Routine 11/09/2012 [...] - 4.200 mcIU/mL 03/19/2020 7:23 PM EDT [facility] Blood VENOUS BLOOD / Unknown Venipuncture / Unknown 03/19/2020 2:52 PM EDT 03/19/2020 2:52 PM EDT Narrative [facility] [employer] - 03/19/2020 7:23 PM EDT Ingestion of caterina doses of biotin (>5 mg/day) taken within 8 hours of drawing blood sample can interfere with this immunoassay test. us Candi Nuno MD CHEMISTRY ORDERABLES Final Res ult [facility] [address] [facility] , [place] [address] * CBC WITH DIFF (03/19/2020 2:52 PM [...] 7:04 PM EDT [facility] Willacy Percent 9.0 % 03/19/2020 7:04 PM EDT [...] 03/19/2020 7:04 PM EDT [facility] Comment:Automated count of m etamyelocytes, myelocytes and promyelocytes. An absolute IG <0.1 is reported as 0.0. Lymph # 2.8 1.2 - 3.9 x10(3)/mcL 03/19/2020 7:04 PM EDT [facility] [employer] [facility] Willacy # 0.6 0.3 - 0.9 x10(3)/mcL 03/19/2020 7:04 PM EDT [facility] [employer] Eos# 0.0 0.0 - 0.5 x10(3)/mcL 03/19/2020 7:04 PM EDT [facility] [employer], [facility] Baso # 0.0 0.0 - 0.1 x10(3)/mcL 03/19/2020 7:04 PM EDT [facility] [employer], [facility] Blood VENOUS BLOOD / Unknown Venipuncture / Unknown 03/19/2020 2:52 PM EDT 03/19/2020 2:52 PM EDT us Candi Nuno MD HEMATOLOGY ORDERABLES Final Re sult Performing Organization Address [facility] de Phone Number [facility] [address] [facility] , [place] [address] * CA 125 (03/19/2020 2:52 PM EDT) [facility] Ca 125 9.3 0.0 - 35.0 unit/mL 03/19/2020 7:55 PM EDT [facility] [employer], [facility] Comment:[facility] uses the [employer] CA125 II assay, which is intended to [...] ORDERABLES Final Res ult Performing Organization Address [facility] Co de Phone Number [facility] [address] [facility] , [place] [address] * LIPASE LEVEL (03/19/2020 2:52 PM EDT) Lipase Lvl 19 13 - 60 U/L 03/19/2020 7:23 PM EDT [facility] Blood VENOUS BLOOD / Unknown Venipuncture / Unknown 03/19/2020 2:52 PM EDT 03/19/2020 2:52 PM EDT Candi Nuno MD CHEMISTRY ORDERABLES Final Res ult Performing Organization Address City/[facility]/ZIP Co de Phone Number [facility] [address] [facility] , [place] [address] * AMYLASE LEVEL (03/19/2020 2:52 PM EDT) Amylase Lvl 66 28 - 100 U/L 03/19/2020 7:23 PM EDT [facility] Blood VENOUS BLOOD / Unknown Venipuncture / Unknown 03/19/2020 2:52 PM EDT 03/19/2020 2:52 PM EDT Candi Nuno MD CHEMISTRY ORDERABLES Final Res ult Performing Organization Address [facility] Co de Phone Number [facility] [address] [facility] , [place] [address] * (ABNORMAL) COMPREHENSIVE METABOLIC PANEL (03/19/2020 2:52 [...] 03/19/2020 7:23 PM EDT [facility] Calcium 9.9 8.6 - 10.4 mg/dL 03/19/2020 7:23 PM EDT [facility] Glucose Lvl 72(L) 74 - 100 mg/dL 03/19/2020 7:23 PM EDT [facility] BUN 10 6 - 20 mg/dL 03/19/2020 7:23 PM EDT [facility] Creatinine 1.04 0.51 - 1.30 mg/dL 03/19/2020 7:23 PM EDT [facility] Albumin 4.8 3.5 - 5.2 gm/dL 03/19/2020 7:23 PM EDT [facility] Total Protein 6.9 6.4 - 8.3 gm/dL 03/19/2020 7:23 PM EDT [facility] Bili Total 0.3 0.1 - 1.3 mg/dL 03/19/2020 7:23 PM EDT [facility] ALT 9 <=41 U/L 03/19/2020 7:23 PM EDT [facility] AST 20 <=40 U/L 03/19/2020 7:23 PM EDT [facility] Alk Phos 94 36 - 123 U/L 03/19/2020 7:23 PM EDT [facility] GFR Afr Am 71 >=60 mL/min/1.7 3 m2 03/19/2020 7:23 PM EDT [facility] GFR Non Afr Am 61 >=60 mL/min/1.7 3 m2 03/19/2020 7:23 PM EDT [facility] Comment: This estimated GFR [...] Nuno MD CHEMISTRY ORDERABLES Final Res ult [facility] [address] [facility] [address] [place] [address] [facility] [address] [address] * SEP URINALYSIS POC (03/19/2020 2:51 PM EDT) UA Color POC Yellow 03/19/2020 2:53 PM EDT [facility] UA Appear POC Clear Clear 03/19/2020 2:53 PM EDT [facility] UA Gluc POC Negative Negative mg/dL 03/19/2020 2:53 PM EDT [facility] UA Bili POC Negative Negative 03/19/2020 2:53 PM EDT [facility] UA Ketones POC Negative Negative mg/dL 03/19/2020 2:53 PM EDT [facility] UA SG POC 1.010 1.001 - 1.035 03/19/2020 2:53 PM EDT [facility] UA Blood POC Negative Negative 03/19/2020 2:53 PM EDT [facility] UA pH POC 6.0 5.0 - 8.0 03/19/2020 2:53 PM EDT [facility] UA Protein POC Negative Negative mg/dL 03/19/2020 2:53 PM EDT [facility] UA Urobilinogen POC 0.2 0.2, 1.0 03/19/2020 2:53 PM EDT [facility] UA Nitrite POC Negative Negative 03/19/2020 2:53 PM EDT [facility] UA Leuk Est POC Negative Negative 0 2:53 PM EDT [facility] Urine STRUCTURE OF URINARY TRACT PROPER / Unknown 03/19/2020 2:51 PM EDT 03/19/2020 2:53 PM EDT Candi Nuno MD POINT OF CARE TEST ORDERABLES Final Result Performing Organization Address City/[facility]/ZIP Co de Phone Number [facility] [address] [place] [phone] * MRI BRAIN ATTN PITUITARY W WO [...] changes are present. - Candi Nuno MD [facility] MRI ORDERABLES Final Resul t * (ABNORMAL) URINE CULTURE (NO STAIN) (10/16/2019 8:30 AM EDT) Only the most recent of2 resultswithin the time period is included. Culture Positive Growth(A) 10/18/2019 6:53 AM EDT [facility] Culture 31976 CFU/mL Escherichia coli SUSCEPTIBI LITY RESULT 10/18/2019 6:53 AM EDT [facility] Urine URINE SPECIMEN COLLECTION, CLEAN CATCH / [...] MICROBIOLOGY - GENERAL ORDERAB LES Final Result [facility] [address] [facility] , [address] [place] [id number] * POCT URINALYSIS AUTOMATED (10/16/2019 8:28 AM EDT) Only the most recent of4 resultswithin the time period is included. Color, UA SEP OFFICE Clarity, UA SEP OFFICE Glucose, UA norm G/DL% SEP OFFICE Bilirubin, UA neg POS/NEG SEP OFFICE Ketones, UA neg POS/NEG SEP manager data warehousing Grav, UA 1.020 1.001 - 1.035 G/DL [...] 12:06 PM CLINICAL HISTORY: M25.512-Pain in left nhtzxmnz-RZW-63-CM COMPARISON: 09/24/2012 PROCEDURE COMMENTS: Routine views. FINDINGS: [...] 12:06 PM CLINICAL HISTORY: M25.512-Pain in left gbvpzval-RLZ-79-CM COMPARISON: 09/24/2012 PROCEDURE COMMENTS: Routine views. FINDINGS: [...] - 946 pg/mL 05/23/2019 8:50 PM EDT [facility] Folate >16.00(H) 4.50 - 16.00 ng/mL 05/23/2019 8:50 PM EDT [facility] Blood VENOUS BLOOD / Unknown Venipuncture / Unknown 05/23/2019 3:34 PM EDT 05/23/2019 3:34 PM EDT Narrative [facility] - 05/23/2019 8:50 PM EDT Ingestion of caterina doses of biotin (>5 mg/day) taken within 8 hours of drawing blood sample can interfere with this immunoassay test. us Candi Nuno MD CHEMISTRY ORDERABLES Final Res ult [facility] [address] [facility] , [place] [address] * HEMOGLOBIN A1C (05/23/2019 3:34 PM EDT) Hgb A1C 5.6 4.2 - 5.6 % 05/23/2019 8:38 PM EDT [facility] Est. Avg Glucose 114 mg/dL 05/23/2019 8:38 PM EDT [facility] Blood VENOUS BLOOD / Unknown Venipuncture / Unknown 05/23/2019 3:34 PM EDT 05/23/2019 3:34 PM EDT Narrative [facility] - 05/23/2019 8:38 PM EDT REFERENCE RANGE: Normal: 4.0-5.6% Pre-diabetes: 5.7-6.4% Provisional diagnosis of diabetes: >6.4% Hgb F>10% and anything which shortens red cell survival, such as hemolytic anemia, or unstable hemoglobin variants such as HbSS, HbSC, or HbCC, will lower the HbA1c value associated with a given level of glycemic control. us Candi Nuno MD CHEMISTRY ORDERABLES Final Res ult [facility] [address] [facility] , [address] [place] [id number] * LIPID SCREEN (05/23/2019 3:34 PM EDT) Only the most recent of3 resultswithin the time period is included. Cholesterol 190 <=200 mg/dL 05/23/2019 8:39 PM EDT [facility] Comment: < 200 Desirable 200 - 239 Borderline High >= 240 High Triglyceride 119 <=150 mg/dL 05/23/2019 8:39 PM EDT [facility] Comment: < 150 Normal 150 - 199 Borderline High 200 - 499 High >= 500 Very High HDL 74 >=40 mg/dL 05/23/2019 8:39 PM EDT [facility] Comment: > 60 Optimal 40 - 60 Acceptable < 40 Low LDL Calculated 92 <=100 mg/dL 05/23/2019 8:39 PM EDT [facility] Comment: < 100 Optimal 100 - 129 Near or above optimal 130 - 159 Borderline High 160 - 189 High >= 190 Very High Non-HDL-C Calculated 116 <=129 mg/dL 05/23/2019 8:39 PM EDT [facility] Comment: <130 Desirable 130-159 Above Desirable 160-189 Borderline High 190-219 High >= 220 Very High Fasting Specimen? Yes None 019 8:39 PM EDT [facility] Blood VENOUS BLOOD / Unknown Venipuncture / Unknown 05/23/2019 3:34 PM EDT 05/23/2019 3:34 PM EDT us Candi Nuno MD CHEMISTRY ORDERABLES Final Res ult [facility] [address] [place] [address] , [place] [address] * MRI THORACIC SPINE WO CONTRAST (05/14/2019 [...] 04/23/2019 3:48 PM CLINICAL HISTORY: M54.5-Low back urjk-MFB-70-CM T78-Pzurxsjmplw urinary qcczifzagxwg-FTZ-79-CM COMPARISON: Radiographs 12/02/2016. No prior MRI. PROCEDURE [...] 04/23/2019 3:48 PM CLINICAL HISTORY: M54.5-Low back aeca-HHH-17-CM G98-Rvibkamusgh urinary cninrgxoragg-FCP-88-CM COMPARISON: Radiographs 12/02/2016. No prior MRI. PROCEDURE [...] narrowing of neuralforamina bilaterally at L3-4. - [facility] GEAR HOBBER SET UP OPERATOR IMG MRI ORDERABL ES Final Result * [...] WITHOUT CONTRAST, 04/23/2019 3:30 PM CLINICAL HISTORY: M54.6-Jtneshoijkd-WTX-10-CM Z98.1-Arthrodesis xwxpxi-EPK-11-CM COMPARISON: MRI cervical spine 2018 PROCEDURE COMMENTS: [...] WITHOUT CONTRAST, 04/23/2019 3:30 PM CLINICAL HISTORY: M54.0-Vxqrbxileuz-NRN-10-CM Z98.1-Arthrodesis mheyyn-RCZ-00-CM COMPARISON: MRI cervical spine 2018 PROCEDURE COMMENTS: [...] changes at C4-C5 and C5-C6 levels. [facility] HOBBER SET UP OPERATOR IMG MRI ORDERABL ES Final Result * (ABNORMAL) HB-1 CUSTOM UDS PANEL-QUEST (12/25/2018 10:40 PM EDT) Only the most recent of2 resultswithin the time period is included. Prescribed Drug 1 Gabapentin [facility] Prescribed Drug 2 [place](TM) [facility] Ritalinic Acid NEGATIVE <100 ng/mL [facility] Comment:See Note 1 medMATCH Ritalinic Acid CONSISTENT [facility] medMatch Comments [facility] Comment:See Note 2 Prescribed Drug 1 Gabapentin [facility] Prescribed Drug 2 [place](TM) [facility] 6-Acetylmorphine,GC/MS NEGATIVE <10 ng/mL [facility] medMATCH 6 Acetylmorphine CONSISTENT [facility] medMatch Comments [facility] Comment:See Note 2 Prescribed Drug 1 Gabapentin [facility] Prescribed Drug 2 [place](TM) [facility] Creatinine, Urine 130.1 > or = 20.0 mg/dL [facility] UA Spec Grav 1.023 > or = 1.003 [facility] UA pH 5.9 4.5 - 9.0 [facility] Oxidant NEGATIVE <200 mcg/mL [facility] Amphetamines NEGATIVE <500 ng/mL [facility] medMATCH Amphetamines CONSISTENT [facility] Barbiturates NEGATIVE <300 ng/mL [facility] medMATCH Barbiturates CONSISTENT [facility] Benzodiazepines NEGATIVE CONFIRMED <100 ng/mL [facility] ALPHAHYDROXYALPRAZOLAM NEGATIVE <25 ng/mL [facility] Comment:See Note 1 medMATCH aOH alprazolam CONSISTENT [facility] ALPHAHYDROXYMIDAZOLAM NEGATIVE <50 ng/mL [facility] Comment:See Note 1 MEDMATCH AOH MIDAZOLAM CONSISTENT [facility] ALPHAHYDROXYTRIAZOLAM-QU EST NEGATIVE <50 ng/mL [facility] Comment:See Note 1 medMATCH aOH triazolam CONSISTENT [facility] Aminoclonazepam NEGATIVE <25 ng/mL [facility] Comment:See Note 1 medMATCH Aminoclonazepam CONSISTENT [facility] Hydroxyethylflurazepam NEGATIVE <50 ng/mL [facility] Comment:See Note 1 MEDMATCH [place] ET FLURAZEPAM CONSISTENT [facility] LORAZEPAM-QUEST NEGATIVE <50 ng/mL [facility] Comment:See Note 1 medMATCH Lorazepam CONSISTENT [facility] NORDIAZEPAM-QUEST NEGATIVE <50 ng/mL [facility] Comment:See Note 1 medMATCH Nordiazepam CONSISTENT [facility] OXAZEPAM-QUEST NEGATIVE <50 ng/mL [facility] Comment:See Note 1 medMATCH Oxazepam CONSISTENT [facility] TEMAZEPAM-QUEST NEGATIVE <50 ng/mL [facility] Comment:See Note 1 medMATCH Temazepam CONSISTENT [facility] Marijuana Metabolite NEGATIVE <20 ng/mL [facility] medMATCH Marijuana Metab CONSISTENT [facility] Cocaine Metabolite POSITIVE(A) <150 ng/mL [facility] [employer] [facility] BENZOYLECGONINE-QUEST 124(H) <100 ng/mL [facility] Comment:See Note 1 medMATCH Benzoylecgonine INCONSISTENT (A) [facility] Methadone NEGATIVE <100 ng/mL [facility] medMATCH Methadone CONSISTENT [facility] Opiates NEGATIVE <100 ng/mL [facility] medMATCH Opiates INCONSISTENT (A) [facility] Oxycodone NEGATIVE <100 ng/mL [facility] [employer] [facility] medMATCH Oxycodone CONSISTENT [facility] [employer] [facility] Confirmation Testing Performed at: [facility] Comment: [facility], [facility], , [place] [address], Insole Stiffener: ANN HOWARD MD CLIA: [id number] medMatch Comments Qu est [employer] [facility] Comment: See Note 2 Note 1 This test was developed and its analytical performance characteristics have been determined by [facility]. It has not been cleared or approved [...] or to monitor progress of medical conditions. medTrupanionTCH comments are: - present when drug test results may be the result of metabolism of one or more drugs or when results are inconsistent with prescribed medication(s) listed. - may be blank when drug results are consistent with prescribed medication(s) listed. For assistance with interpreting these drug results, please contact a [facility] Toxicology Specialist: [phone] ), M-F, 8am-6pm EST. 12/25/2018 10:4 0 PM EDT 12/26/2018 8:15 PM EDT Mingo Whatley MD [facility] ORDERABLE (NON- [facility]) Final Result Performing Organization Address City/[facility]/ZIP Co de Phone Number [facility] [address] [place] [address] [facility] [address] [place] [address] * THYROID STIMULATING HORMONE (12/25/2018 9:21 AM EDT) Only the most recent of2 resultswithin the time period is included. TSH 2.140 0.270 - 4.200 mcIU/mL 12/25/2018 2:43 PM EDT [facility] Blood Venipuncture / Unknown 12/25/2018 9:21 AM EDT 12/25/2018 9:22 AM EDT Narrative PREFERRED [facility] - 12/25/2018 2:43 PM EDT Ingestion of caterina doses of biotin (>5 mg/day) taken within 8 hours of drawing blood sample can interfere with this immunoassay test. us Mingo Whatley MD CHEMISTRY ORDERABLES Ann l Result [facility] [address] [facility] , [place] [address] * T4, FREE (THYROXINE) (12/25/2018 9:21 AM EDT) Only the most recent of2 resultswithin the time period is included. [facility] Signature Free T4 1.08 0.80 - 2.00 ng/dL 12/25/2018 2:41 PM EDT [facility] [employer] Blood Venipuncture / Unknown 12/25/2018 9:21 AM EDT 12/25/2018 9:22 AM EDT Narrative [facility] [employer] - 12/25/2018 2:41 PM EDT Ingestion of caterina doses of biotin (>5 mg/day) taken within 8 hours of drawing blood sample can interfere with this immunoassay test. Mingo Whatley MD CHEMISTRY ORDERABLES Ann l Result Performing Organization Address [facility] Co de Phone Number [facility] [address] [place] [address], [place] [address] * INTRAOP AIRWAY PLACEMENT (04/03/2018 3:25 PM EDT) Narrative [facility] - 04/03/2018 3:25 PM EDT Garth Kelsey CRNA 04/03/2018 3:25 PM Intraop Airway Placement: Airway type: Nasal cannula salter Procedure Note Garth Kelsey CRNA - 04/03/2018 3:25 PM EDT Intraop Airway Placement: Airway type: Nasal cannula salter us Arnel Olsen MD [place] ANESTHESIA Final Result Performing Organization Address [facility] [place] [address] * (ABNORMAL) EMG (02/21/2018 4:16 PM EDT) Impressions [facility] - 02/21/2018 4:16 PM EDT Abnormal electrodiagnostic study There is EMG evidence of a 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 There is no EMG evidence of a right cervical radiculopathy or plexopathy. Narrative [facility] - 02/21/2018 4:16 PM EDT Nerve [...] ORDERABLES Final R esult Performing Organization Address [facility] [place] [address] * SCANNED RHYTHM STRIPS (09/06/2017 9:57 PM [...] ORDERABLES F inal Result Performing Organization Address [facility] Co de Phone Number PACS [...] through 10th images document placement of anterior C5-B9jeghva plate. Total listed fluoroscopy time: 0.17 minutes. IMPRESSION: 1. Intraoperative documentation anterior C6-C7 ACDF. Harjinder Cain MD IMG DIAGNOSTIC IMAGING ORDER MARILEE Final Result * INTRAOP AIRWAY PLACEMENT (09/04/2017 11:31 AM EST) Narrative [facility] - 09/04/2017 11:31 AM EST Wander [...] Unchanged and Atraumatic Insertion attempts: 1 Title: BOOK OR SCRIPT EDITOR us Pierre Webber MD [place] ANESTHESIA Final Res ult Performing Organization Address [facility] Co de Phone Number [facility] [address] [place] [address] * (ABNORMAL) VITAMIN D 25 HYDROXY (08/31/2017 7:49 AM EST) Only the most recent of2 resultswithin the time period is included. Pathologist [facility] Vit D 25 [place] 18.0(L) 30.0 - 120.0 ng/mL 08/31/2017 3:48 PM EST [facility] Comment: INTERPRETIVE INFORMATION: Vitamin [...] ORDERABLES Ann l Result Performing Organization Address [facility] Co de Phone Number [facility] [address] [place] [address] * BASIC METABOLIC PANEL (08/31/2017 7:49 AM EST) [facility] Sodium 142 136 - 145 mmol/L 08/31/2017 9:10 AM EST [facility] Potassium 4.5 3.5 - 5.0 mmol/L 08/31/2017 9:10 AM EST [facility] Chloride 106 98 - 107 mmol/L 08/31/2017 9:10 AM [facility] Total CO2 28 22 - 29 mmol/L 08/31/2017 9:10 AM [facility] Anion Gap 8 7 - 16 mmol/L 08/31/2017 9:10 AM [facility] Calcium 9.5 8.6 - 10.2 mg/dL 08/31/2017 9:10 AM [facility] Glucose Lvl 93 74 - 100 mg/dL 08/31/2017 9:10 AM [facility] BUN 19 6 - 20 mg/dL 08/31/2017 9:10 AM [facility] Creatinine 1.16 0.51 - 1.30 mg/dL 08/31/2017 9:10 AM [facility] GFR Afr Am 63 mL/min/1.7 3 m2 08/31/2017 9:10 AM [facility] GFR Non Afr Am 55 mL/min/1.7 3 m2 08/31/2017 9:10 AM [facility] Comment: GFR Afr Am [...] Whatley MD CHEMISTRY ORDERABLES Ann moya Result [facility] [address] [place] [address] * BB HISTORY CHECK (08/29/2017 9:32 AM EST) BB HISTORY CHECK (1) No Previous History 08/29/2017 10:13 AM EST [facility] Blood VENOUS BLOOD / Unknown Venipuncture / Unknown 08/29/2017 9:32 AM EST 08/29/2017 10:02 AM EST Harjinder Cain MD BLOOD BANK ORDERABLES Final Result Performing Organization Address City/[facility] Co de Phone Number [facility] [address] [place] [address] * SURGERY DATE (08/29/2017 9:32 AM EST) Pathologist [facility] Surgery Date (1) Complete 08/29/2017 10:13 AM EST [facility] Blood VENOUS BLOOD / Unknown Venipuncture / Unknown 08/29/2017 9:32 AM EST 08/29/2017 10:02 AM EST Harjinder Cain MD BLOOD BANK ORDERABLES Final Result Performing Organization Address [facility] Co de Phone Number [facility] [address] [place] [address] * STAPHYLOCOCCUS AUREUS SCREEN (08/29/2017 9:32 AM EST) Pathologist [facility] Staph aureus PCR Not Detected Not Detected 08/30/2017 8:48 AM EST [facility] MRSA PCR Not Detected Not Detected 08/30/2017 8:48 AM EST [facility] Swab BOTH ANTERIOR NARES / Unknown 08/29/2017 9:32 AM EST 08/29/2017 10:02 AM EST Narrative [facility] - 08/30/2017 8:48 AM [...] assay utilizes real time PCR on the [employer] GeneXpert Infinity, and its performance has been verified by the [facility]. A negative result does not [...] has been developed and validated by the [facility] laboratory. Detailed methodology is available upon request. Harjinder Cain MD MICROBIOLOGY - GENERAL ORDER MARILEE Final Result Performing Organization Address City/[facility]/ZIP Co de Phone Number [facility] [address] [place] [address] * ABORH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
--- NOTE | 2025-04-20 12:27 | CT_ITS ---
PROCEDURE INFORMATION: Exam: CT Head Without Contrast Exam date and time: 04/20/2025 12:59 PM Age: 60 years old Clinical indication: Other: R veering gait TECHNIQUE: Imaging protocol: Computed tomography of the head without contrast. Radiation optimization: All CT scans at this facility use at least one of these dose optimization techniques: automated exposure control; mA and/or kV adjustment per patient size (includes targeted exams where dose is matched to clinical indication); or iterative reconstruction. COMPARISON: 1. CT ANGIO HEAD 12/17/2023 9:[address] HEAD/BRAIN WO CON 12/17/2023 9:25 AM FINDINGS: Brain: Petersen-white matter differentiation is maintained. Small area of mild decreased density within the periventricular deep white matter on the left. These changes are nonspecific and more in keeping with areas of chronic microvascular ischemic change. Area of decreased density within the left occipital lobe appears unchanged compared to the prior CT scan from December 17, 2019 4 May correspond to artifact. No definitive evidence of a new territorial infarct. No intraparenchymal hemorrhage. No subdural or epidural hematoma or fluid collection. Cerebral ventricles: Ventricular and sulcal pattern is within normal limits. Ventricles are midline in position. No mass effect or midline shift. Paranasal sinuses: Moderate mucosal thickening within the right maxillary sinus. Mild mucosal thickening along a few of the ethmoid air cells and within the sphenoid air cells. Frontal sinuses are clear. Left maxillary sinus is clear. Mastoid air cells: Mastoid air cells are clear. Bones: The calvarium is intact. Soft tissues: Unremarkable. Vasculature: No hyperdense MCA sign. Arterial stent is in place within the distal intracavernous and supraclinoid segment of the right internal carotid artery. Evaluation is limited by lack of intravenous contrast. Other findings: No large mass or mass effect. IMPRESSION: 1. No definitive acute findings within the brain. No definitive evidence of a new territorial infarct. Areas of decreased density within the left occipital lobe appears similar compared to the prior CT scan. Appearance of the brain appears unchanged as compared to the prior CT scan. No intraparenchymal hemorrhage. No subdural or epidural hematoma or fluid collection. No large mass or mass effect. 2. Arterial stent in place within the intracranial segment of the right internal carotid artery. Evaluation is limited by lack of intravenous contrast. CT angiogram of the brain should be considered for further evaluation. If symptoms persist, follow-up MRI of the brain should also be considered pending arterial stent compliance.
--- NOTE | 2025-04-20 12:27 | CT_ITS ---
PROCEDURE INFORMATION: Exam: CTA Head With Contrast, Arteriography Exam date and time: 04/20/2025 1:01 PM Age: 60 years old Clinical indication: Other: R veering gait TECHNIQUE: Imaging protocol: Computed tomographic angiography of the head with contrast. Exam focused on the arteries. 3D rendering (Not supervised by radiologist): MIP and/or 3D reconstructed images were created by the technologist. Radiation optimization: All CT scans at this facility use at least one of these dose optimization techniques: automated exposure control; mA and/or kV adjustment per patient size (includes targeted exams where dose is matched to clinical indication); or iterative reconstruction. Contrast material: ISOVUE; Contrast volume: 80 ml; Contrast route: INTRAVENOUS (IV); COMPARISON: CT ANGIO HEAD 12/17/2023 9:28 AM FINDINGS: ANTERIOR CIRCULATION: Right internal carotid artery: There is a stent in the distal cavernous and supraclinoid right ICA. The stent appears patent.Right middle cerebral artery is patent. No significant stenosis. No aneurysm. Right middle cerebral artery: See Right internal carotid artery finding. Right anterior cerebral artery: Right anterior cerebral artery is patent. No significant stenosis. No aneurysm. Anterior communicating artery: No anterior communicating artery aneurysm seen. Left internal carotid artery: Left internal carotid artery is patent. No significant stenosis. No aneurysm. Left middle cerebral artery: Left middle cerebral artery is patent. No significant stenosis. No aneurysm. Left anterior cerebral artery: Left anterior cerebral artery is patent. No significant stenosis. No aneurysm. POSTERIOR CIRCULATION: Right vertebral artery: Right vertebral artery is patent. No significant stenosis. No aneurysm. Left vertebral artery: Left vertebral artery is patent. No significant stenosis. No aneurysm. Basilar artery: There is variant fenestration of the proximal basilar artery. No occlusion. Right posterior cerebral artery: Right posterior cerebral artery is patent. No significant stenosis. No aneurysm. Left posterior cerebral artery: Left posterior cerebral artery is patent. No significant stenosis. No aneurysm. Veins: Visualized dural venous sinuses grossly patent on this study optimized for arterial assessment. Brain: There is no definite mass, mass effect, or midline shift present. No definite vascular malformation identified. Cerebral ventricles: No significant ventriculomegaly. Paranasal sinuses: Scattered paranasal sinus mucosal thickening, without air-fluid level present. Bones/joints: No acute osseous abnormality. Soft tissues: Soft tissues are unremarkable as visualized. IMPRESSION: 1. No acute large vessel occlusion identified. 2. Right internal carotid artery stent is patent. PROCEDURE INFORMATION: Exam: CTA Neck With Contrast Exam date and time: 04/20/2025 1:01 PM Age: 60 years old Clinical indication: Other: R veering gait TECHNIQUE: Imaging protocol: Computed tomographic angiography of the neck with contrast. Exam focused on the cervical segments of the vasculature. 3D rendering (Not supervised by radiologist): MIP and/or 3D reconstructed images were created by the technologist. Radiation optimization: All CT scans at this facility use at least one of these dose optimization techniques: automated exposure control; mA and/or kV adjustment per patient size (includes targeted exams where dose is matched to clinical indication); or iterative reconstruction. Contrast material: ISOVUE; Contrast volume: 80 ml; Contrast route: INTRAVENOUS (IV); COMPARISON: CT ANGIO NECK 12/17/2023 9:28 AM FINDINGS: Right common carotid artery: The right common carotid artery is widely patent. No stenosis. Right internal carotid artery: The right internal carotid artery is patent. No stenosis by NASCET criteria. No evidence of dissection. Right external carotid artery: Right external carotid artery has no visible occlusion. Left common carotid artery: The left common carotid artery is widely patent. No stenosis. Left internal carotid artery: The left internal carotid artery is patent. No stenosis by NASCET criteria. No evidence of dissection. Left external carotid artery: Left external carotid artery has no visible occlusion. Right vertebral artery: Right vertebral artery is patent. No significant stenosis. No evidence of dissection. Left vertebral artery: The left vertebral artery proximally is not well seen due to artifact. The mid to distal vessel is patent. Lymph nodes: Nonspecific mildly prominent upper cervical chain lymph nodes likely reactive. Soft tissues: Soft tissues are unremarkable as visualized. Bones/joints: Previous anterior cervical spinal fusion changes C6-C7. Lungs: Patchy ground-glass densities are seen in the lung apices. Other findings: Visualized mediastinal vasculature patent. IMPRESSION: 1. No occlusion or significant stenosis. 2. Patchy ground-glass densities are seen in the lung apices. Correlate for pulmonary infection. REFERENCES: NASCET CRITERIA. The degree of stenosis in the cervical segment of the internal carotid artery is based on NASCET criteria. Normal is no stenosis. Mild is less than 50% stenosis. Moderate is 50-69% stenosis. Severe is 70% to 99% stenosis. Total occlusion is no detectable patent lumen.
--- NOTE | 2025-04-20 12:29 | HMH.EDGENADL ---
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 Magnesium Citrate 148 ml 04/20/25 18:45 04/20/25 19:48 Magnesium Citrate 296ml Bottle PO 04/20/25 18:46 Not Given ONCE ONE Metoprolol Succinate 50 mg 04/20/25 21:00 04/20/25 20:26 Metoprolol Succinate Xl 50mg Tablet PO 05/20/25 20:59 50 mg BID NISHA Administration Miscellaneous 1 unit 04/20/25 20:34 Aerochamber/Optihaler MC 04/20/25 20:35 ONCE ONE Nicotine 21 mg 04/20/25 17:12 Nicotine 21mg/24hr Patch TD 05/20/25 17:11 DAILYP PRN Nicotine Cravings Non-Formulary Medication 2 inh 04/20/25 21:00 04/20/25 20:39 Msafundfws-Iemzmndy-Wyjvjgrkir [Breztri Aerosphere] IH 05/20/25 20:59 Not Given BID NISHA Non-Formulary Medication 290 mcg 04/20/25 20:45 04/20/25 20:39 Linaclotide [Linzess] PO 05/20/25 20:44 Not Given DAILY NISHA Ondansetron HCl 4 mg 04/20/25 19:26 04/20/25 19:46 Ondansetron 4mg/2ml Vial IV 05/20/25 19:25 4 mg Q6HP PRN Administration Nausea Oxycodone/Acetaminophen 1 each 04/20/25 18:47 04/20/25 20:30 Oxycodone 7.5mg W/Apap 325mg Tablet PO 05/20/25 18:46 1 each Q6HP PRN Administration Severe Pain (7-10) Oxycodone/Acetaminophen 1 each 04/20/25 20:34 Oxycodone 10mg W/Apap 325mg Tablet PO 05/20/25 20:33 QID PRN pain Pantoprazole Sodium 40 mg 04/20/25 21:00 04/21/25 00:00 Pantoprazole 40mg Tablet PO 05/20/25 20:59 Not Given HS NISHA Polyethylene Glycol 17 gm 04/20/25 21:00 04/20/25 20:37 Polyethylene Glycol 3350 17 Gm Packet PO 05/20/25 20:59 Not Given BID NISHA Potassium Chloride 40 meq 04/20/25 18:41 04/20/25 19:46 Potassium Chloride 20meq Tab PO 04/20/25 18:42 40 meq ONCE ONE Administration Pramipexole Dihydrochloride 0.25 mg 04/20/25 21:00 04/20/25 21:21 Pramipexole 0.25mg Tab PO 05/20/25 20:59 Not Given HS NISHA Quetiapine Fumarate 200 mg 04/20/25 21:00 04/20/25 21:28 Quetiapine 100mg Tablet PO 05/20/25 20:59 200 mg HS NISHA Administration Senna/Docusate Sodium 1 tab 04/20/25 21:00 04/20/25 20:37 Sennosides 8.6mg/Docusate 50mg Tablet PO 05/20/25 20:59 Not Given BID NISHA Tizanidine HCl 8 mg 04/21/25 09:00 Tizanidine 4mg Tablet PO 05/21/25 08:59 BID@0900,1300 NISHA Tizanidine HCl 10 mg 04/20/25 21:45 04/20/25 21:37 Tizanidine 4mg Tablet PO 05/20/25 21:44 10 mg HS NISHA Administration Discontinued Medications Generic Name Dose Route Start Last Admin Trade Name Freq PRN Reason Stop Dose Admin Potassium Chloride/Water 100 mls @ 50 mls/hr 04/20/25 12:53 04/20/25 17:33 Potassium Chloride 20meq/100ml Ivpb IV 04/20/25 16:52 Infused Q2H NISHA Infusion Lactated Ringer's 1,000 mls @ 999 mls/hr 04/20/25 12:52 04/20/25 15:44 Lactated Ringer's 1000 Ml Bag IV 04/20/25 13:52 Infused .Q1H1M ONE Infusion Iopamidol 80 ml 04/20/25 12:58 04/20/25 12:59 Iopamidol-370 (76%);100ml Bottle IV 04/20/25 12:59 80 ml ONCE ONE Administration Iopamidol 30 ml 04/20/25 13:09 04/20/25 13:12 Iopamidol-370 (76%);100ml Bottle IV 04/20/25 13:10 30 ml ONCE ONE Administration Potassium Chloride 40 meq 04/20/25 12:52 04/20/25 13:44 Potassium Chloride 20meq Tab PO 04/20/25 12:53 40 meq ONCE ONE Administration Sodium Chloride 10 ml 04/20/25 12:58 04/20/25 12:59 Sodium Chloride 0.9% 10ml Syr (Rad Only) IV 04/20/25 12:59 10 ml ONCE ONE Administration Sodium Chloride 50 ml 04/20/25 12:58 04/20/25 12:59 0.9 % Sodium Chloride 50 Ml Vial IV 04/20/25 12:59 50 ml ONCE ONE Administration ORDERS Category Date Time Status CT angio head Stat Cat Scan 04/20/25 12:[address] angio neck Stat Cat Scan 04/20/25 12:[address] head/brain wo con Stat Cat Scan 04/20/25 12:27 Completed Acetaminophen Stat Lab 04/20/25 11:30 Completed CBC w/Auto Diff [Complete Blood Count Auto Diff] Stat Lab 04/20/25 11:50 Completed CMP [Comprehensive Metabolic Panel] Stat Lab 04/20/25 11:50 Completed Complete Blood Count Auto Diff AMLAB Lab 04/21/25 06:00 Ordered Comprehensive Metabolic Panel AMLAB Lab 04/21/25 06:00 Ordered Drug Screen,Urine Stat Lab 04/20/25 15:49 Completed Ethanol [Ethyl Alcohol] Stat Lab 04/20/25 11:30 Completed Free T4 (Free Thyroxine) Stat Lab 04/20/25 11:30 Completed MG [Magnesium] Stat Lab 04/20/25 11:50 Completed Magnesium AMLAB Lab 04/21/25 06:00 Ordered Salicylate Stat Lab 04/20/25 11:30 Completed TSH [Thyroid Stimulating Hormone] Stat Lab 04/20/25 11:30 Completed Trop I [Troponin I] Stat Lab 04/20/25 11:50 Completed Medical Decision Narrative: In summary patient is a 60-year-old female with past medical history of scrota above who presents emergency department for evaluation of gait disturbances difficulty focusing and tremors. Patient is hemodynamically stable and nontoxic-appearing upon arrival, does have soft blood pressures however saturating low 90s on room air. She has not miotic pupils which makes sense given that she snorted her oxycodone I suspect that she is having a robust reaction compared to her oral intake at baseline and is having mild opioid toxidrome. Given how dependent she is on this and the fact that she is protecting her airway Narcan will be deferred at this time it is likely to only cause an agitated situation. However I am concerned about her veering to the right on her history. This is concerning for CVA. Well outside the window given that onset of symptoms was Monday. Workup in totality will be conducted with hematologic labs, ingestants noncontrasted CT scan head CTA of the head and neck. On gait patient is not veering to the right and is able to walk without difficulty. Upon further questioning patient has been cutting all of her controlled medications in half over the last 2 weeks and is trying to come off of them within the next 7 days. She may have a mild degree of benzodiazepine withdrawal with superimposed opiate intoxication which can cause this confusing clinical picture. Initial hematologic labs remarkable for hypokalemia which will be repleted IV and orally, crystalloid bolus will be administered she does not meet JOSE ENRIQUE per rifle criteria. Formal CT reads pending at time of transition of care to the oncoming physician, Dr. Powell. Upon repeat evaluation patient had significant improvement of blood pressure and overall appearance for which I suspect she had opioid toxicity given her history this morning. Ultimately patient will likely require admission for multiple medication adjustments. Eileen Powell, I assumed care of the patient at 1500. Patient CT head CTA head and neck showed no acute pathology. Given patient's hypokalemia and concern for polysubstance use, hospital medicine was consulted and patient was ultimately admitted to their service for further evaluation and workup. Critical Care <Candido Prado MD - Last Filed: 04/20/25 14:57> Critical Care Time Critical Care Time: No
[2025-04-20 12:34] LABS: Chloride 93 mmol/L (98-107); Hematocrit 34.4 % (37.0-47.0); Hemoglobin 11.4 g/dL (12.2-16.2); Immature Granulocytes % 0.4 %; Mean Corpuscular HGB Conc 33.1 g/dL (31.8-35.4); Mean Corpuscular Hemoglobin 28.2 pg (27.0-31.2); Mean Corpuscular Volume 85.1 fl (81-99); Nucleated Red Blood Cells % 0 %; Platelet Count 393 K/mm3 (142-424); Red Blood Count 4.04 M/mm3 (4.20-5.40); Red Cell Distribution Width-SD 42.3 fL; White Blood Count 7.4 K/mm3 (4.8-10.8)
[2025-04-20 12:35] LABS: Albumin Level 4.1 g/dl (3.5-5.0); Sodium 137 mmol/L (136-145)
[2025-04-20 12:38] LABS: Alanine Aminotransferase 20 U/L (12-78); Albumin/Globulin Ratio 1.3 (1.1-1.8); Alkaline Phosphatase 119 U/L (38-126); Anion Gap 13.8 mEq/L (5-15); Aspartate Amino Transferase 35 U/L (14-36); Bilirubin,Total 0.5 mg/dl (0.2-1.3); Blood Urea Nitrogen 26 mg/dl (7-17); Calcium 9.4 mg/dl (8.4-10.2); Carbon Dioxide 33 mmol/L (22.0-30.0); Creatinine Clearance Estimated 52 mL/min (50-200); Creatinine,Serum 1.50 mg/dl (0.52-1.04); Estimated Glomerular Filt Rate 36 ml/min (>60); GFR (African American) 43 ML/MIN (>60); Globulin 3.2 g/dL (1.3-3.2); Glucose 132 mg/dl (74-100); Magnesium 2.3 mg/dl (1.6-2.3); Total Protein,Serum 7.3 g/dl (6.3-8.2)
[2025-04-20 12:45] LABS: Potassium 2.8 mmoL/L (3.5-5.1)
--- NOTE | 2025-04-20 12:46 | ECG_ITS ---
APPROVED REPORT Exam: Resting ECG HR:69 bpm ECG Measurements Heart Rate 69 AXES NJ 167 P 46 QRSd 95 QRS 51 QT 394 T -3 QTc 413 Conclusion SINUS RHYTHM LOW QRS VOLTAGE IN PRECORDIAL LEADS [QRS DEFLECTION < 1.0 mV IN CHEST LEADS] ST DEVIATION AND MODERATE T-WAVE ABNORMALITY, CONSIDER ANTERIOR ISCHEMIA [-0.1+ mV T-WAVE IN V3/V4] No STEMI Electronically signed by : EMANUEL GAN, 04/21/2025 03:39:45
[2025-04-20 12:50] LABS: Acetaminophen < 10 ug/ml (10-30)
[2025-04-20 12:52] LABS: Troponin I < 0.01 ng/ml (0.00-0.034)
[2025-04-20] MEDS: SODIUM CHLORIDE 0.9% 10ML SYR (RAD ONLY) 10 ML IV (12:59)
[2025-04-20] MEDS: IOPAMIDOL-370 (76%);100ML BOTTLE 80 ML IV (12:59)
[2025-04-20] MEDS: 0.9 % SODIUM CHLORIDE 50 ML VIAL IV (12:59)
[2025-04-20 13:08] LABS: Free T4 (Free Thyroxine) 0.91 ng/dl (0.78-2.19)
[2025-04-20] MEDS: IOPAMIDOL-370 (76%);100ML BOTTLE 30 ML IV (13:12)
[2025-04-20 13:21] LABS: Thyroid Stimulating Hormone 0.17 uIU/mL (0.465-4.68)
[2025-04-20] MEDS: POTASSIUM CHLORIDE 20MEQ TAB 40 MEQ PO ×2 (13:44→19:46)
[2025-04-20] MEDS: LACTATED RINGERS 1000ML 1,000 ML 999 ML IV (13:45)
[2025-04-20 13:59] LABS: Salicylate < 1.0 mg/dL (2.0-20.0)
[2025-04-20 16:14] LABS: Barbiturates Screen,Urine Negative ng/ml (<200); Benzodiazepines Screen,Urine Negative ng/ml (<200)
[2025-04-20 16:15] LABS: Amphetamine/Metha Screen,Urine Negative ng/ml (<1000)
[2025-04-20 16:17] LABS: Methadone Screen,Urine Negative ng/ml (<300)
[2025-04-20 16:18] LABS: Opiate Screen,Urine Positive ng/ml (<300); Phencyclidine Screen,Urine Negative ng/ml (<25)
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
--- NOTE | 2025-04-20 17:15 | PC.NURSE ---
called house for bed assignment
--- NOTE | 2025-04-20 17:31 | PC.NURSE ---
called report to macho resendiz on 2nd floor
--- NOTE | 2025-04-20 18:36 | PC.NURSE ---
unable to complete med rec at this time, patients neighbor to bring in list later this evening
[2025-04-20] MEDS: ONDANSETRON 4MG/2ML VIAL 4 MG IV (19:46)
--- NOTE | 2025-04-20 19:58 | PC.NURSE ---
updated med rec per patient external pharm and patient personal med list - placed patient personal med list copy on chart in WC office.
[2025-04-20] MEDS: GABAPENTIN 600MG TABLET 600 MG PO (20:26)
[2025-04-20] MEDS: METOPROLOL SUCCINATE XL 50MG TABLET 50 MG PO (20:26)
[2025-04-20] MEDS: FLECAINIDE 50MG TABLET 50 MG PO (20:26)
[2025-04-20] MEDS: OXYCODONE 7.5MG W/APAP 325MG TABLET 1 EACH PO (20:30)
--- NOTE | 2025-04-20 20:35 | PC.NURSE ---
Addendum entered by Leslye Green RN 04/20/25 21:33: home meds reordered per [facility] - oxy and gabapentin (also had metoprolol suc) gave around 2029 per sep with bp 112/67 - waited an hour before administering pt seroquel and tizandine and rechecked bp 123/71 hr 77 called [facility] pharmacy to update the tizandine order so medication would scan properly. Original Note: patient is requesting home trazadone and seroquel to be reordered - notified hospitalist.
[2025-04-20] MEDS: QUETIAPINE 100MG TABLET 200 MG PO (21:28)
[2025-04-20] MEDS: TIZANIDINE 4MG TABLET 10 MG PO (21:37)
[2025-04-21] VITALS: BP 105/70; PULSE 89; RESP 16; TEMP 36.8; O2SAT 98
[2025-04-21 04:00] VITALS: BP 96/62; PULSE 77; RESP 16; TEMP 36.6; O2SAT 97; BMI 28.1
[2025-04-21 06:17] LABS: Hematocrit 34.7 % (37.0-47.0); Hemoglobin 11.3 g/dL (12.2-16.2); Immature Granulocytes % 0 %; Mean Corpuscular HGB Conc 32.6 g/dL (31.8-35.4); Mean Corpuscular Hemoglobin 28.0 pg (27.0-31.2); Mean Corpuscular Volume 85.9 fl (81-99); Nucleated Red Blood Cells % 0 %; Platelet Count 362 K/mm3 (142-424); Red Blood Count 4.04 M/mm3 (4.20-5.40); Red Cell Distribution Width-SD 43.2 fL; White Blood Count 5.5 K/mm3 (4.8-10.8)
[2025-04-21 07:25] LABS: Albumin Level 3.7 g/dl (3.5-5.0); Chloride 101 mmol/L (98-107); Potassium 3.8 mmoL/L (3.5-5.1); Sodium 139 mmol/L (136-145)
[2025-04-21 07:28] LABS: Alanine Aminotransferase 14 U/L (12-78); Albumin/Globulin Ratio 1.3 (1.1-1.8); Alkaline Phosphatase 118 U/L (38-126); Anion Gap 9.8 mEq/L (5-15); Aspartate Amino Transferase 32 U/L (14-36); Bilirubin,Total 0.2 mg/dl (0.2-1.3); Blood Urea Nitrogen 16 mg/dl (7-17); Calcium 9.1 mg/dl (8.4-10.2); Carbon Dioxide 32 mmol/L (22.0-30.0); Creatinine Clearance Estimated 66 mL/min (50-200); Creatinine,Serum 1.20 mg/dl (0.52-1.04); Estimated Glomerular Filt Rate 46 ml/min (>60); GFR (African American) 56 ML/MIN (>60); Globulin 2.9 g/dL (1.3-3.2); Glucose 99 mg/dl (74-100); Total Protein,Serum 6.6 g/dl (6.3-8.2)
[2025-04-21 07:29] LABS: Magnesium 2.3 mg/dl (1.6-2.3)
[2025-04-21 07:38] VITALS: BP 101/59; PULSE 90; RESP 18; TEMP 36.6; O2SAT 95
--- NOTE | 2025-04-21 08:40 | PC.NURSE ---
Hospitalist note from admission discusses caution when restarting home meds, however all home meds restarted overnight at usual dosage. will hold off on administering medication until discussing with hospitalist this morning.
--- NOTE | 2025-04-21 09:12 | EXP.DC.SUM ---
General Admission date:: 04/20/25 Discharge date: 04/21/25 HPI HPI HPI: Ms. Dunlap is a 60-year-old female with occasions for depression, anxiety, pain and neuropathy. History of polypharmacy, depression, paroxysmal A-fib, hypertension. She presented to the ER feeling uncoordinated and an altered mental state. She is having trouble focusing and walking. Started several days ago. She was slow to respond on initial presentation to the ER and somnolent. She has been more forgetful lately. After much discussion with ER physician, she admitted to snorting her pain medication this morning. Workup in the ER found low potassium at 2.8, CTs were unremarkable with no acute findings. Given her altered mental status and hypokalemia, medicine consulted for admission and further management. Some of her complaints over the past week include the following: She states that her hands and feet are shaky and she has difficulty with fine coordination and texting bilaterally. She had multiple friends over throughout the course of the weekend which partook in illicit substances. This morning she snorted her pain pill prior to arrival. No chest pain no abdominal pain no other acute complaints at this time. Patient is currently on oxycodone 10 mg 4 times a day tizanidine 4 mg 3 times a day gabapentin 800 mg 3 times a day quetiapine 100 mg nightly and methocarbamol 750 mg 4 times a day. After arriving to the floor, on my evaluation she is still fatigued and not back to baseline. Does answer questions appropriately however. Family at bedside helps supplement history. Stable on room air. Afebrile. Hospital Course Hospital Course Hospital Course: 60-year-old female who presented with confusion. States that she has been having difficulty walking straight and feeling weak in her legs, has had some intermittent nausea and vomiting. Admitted to snorting her Percocet this morning. Presented altered. Workup in the ER with hypokalemia. Worked up for stroke, CTs unremarkable. Initially somnolent, has had some slow improvement in mentation but still not back to baseline. Cussed case with ER physician, request admission for monitoring overnight to allow patient to improved to baseline mentation, clear her toxins, and correct potassium. I agreed to admit for further care. As she was protecting her airway, Narcan was not administered. Showing slow improvement. Problems addressed as follows: Toxic encephalopathy due to polypharmacy and inappropriate use of her prescribed medications Acute hypokalemia CKD 3 -Patient on polypharmacy with Wellbutrin 150 mg daily, gabapentin 800 mg 3 times a day, oxycodone 10/325 times a day, pramipexole 0.25 mg daily, Seroquel 100 mg daily, tizanidine 4 mg 3 times a day, and trazodone 50 mg nightly. Oversedated on admission. Adjustments made to medications during admission. She has been self weaning at home and took higher dose of her pain medication (the prescribed dose) prior to coming and leading to her sedation. Would benefit from continued discussion with her prescribers as an outpatient about continued weaning of medications to her polypharmacy. Noted to have potassium level that was low at 2.8 on admission. Increased to 3.8 with replacement by morning of discharge. Kidney function improved and remained at baseline with BUN 16, creatinine 1.2. - TSH normal at 0.17; white count normal at 7.4. Hemoglobin 11.4. - Per my review of CTs at time of admission, she has no large vessel occlusion on CTA head. - Neuroexam normal on morning of discharge Hypertension Paroxysmal A-fib - Does not appear to be on any anticoagulation at this time. Treated with Lovenox prophylactically during admission. No concern for arrhythmia at this time. Continue home regimen with metoprolol succinate 50 mg twice daily and diltiazem extended release 180 mg daily. Continue flecainide 50 mg twice daily along with aspirin 81 mg daily. Stable during admission. -Continue with amlodipine 2.5 mg daily and chlorthalidone 12.5 mg daily Mood disorder/depression: Continue Wellbutrin 150mg extended release daily, pramipexole 0.25 mg nightly, Seroquel 100 mg nightly and trazodone as needed nightly per home regimen. Would benefit from reevaluation of meds at follow-up with her primary care and behavioral providers to consider weaning or dose adjusting due to risk for polypharmacy. Obesity complicates all aspects of her care Patient independently mobile. Evaluate by PT/OT. No skilled or therapy recommendations at this time. Exam Data for Last 24 hours Vital signs and Labs for Last 24 Hours: Temp Pulse Resp BP Pulse Ox O2 Del Method 97.8 F 90 18 101/59 L 95 Room Air 04/21/25 07:38 04/21/25 07:38 04/21/25 07:38 04/21/25 07:38 04/21/25 07:38 04/21/25 09:00 Laboratory Results - last 24 hr 04/20/25 11:30: TSH 0.17 L, Free T4 0.91, Salicylates < 1.0 L, Acetaminophen < 10 L, Plasma/Serum Alcohol < 10 04/20/25 11:50: WBC 7.4, RBC 4.04 L, Hgb 11.4 L, Hct 34.4 L, MCV 85.1, MCH 28.2, MCHC 33.1, RDW 13.5, Plt Count 393, MPV 9.6, Neut % (Auto) 66.8, Lymph % (Auto) 27.7, Daniels % (Auto) 5.0, Eos % (Auto) 0.0 L, Baso % (Auto) 0.1, Neut # (Auto) 5.0, Lymph # (Auto) 2.1, Daniels # (Auto) 0.4, Eos # (Auto) 0.0, Baso # (Auto) 0.0, Sodium 137, Potassium 2.8 L*, Chloride 93 L, Carbon Dioxide 33 H, Anion Gap 13.8, BUN 26 H, Creatinine 1.50 H, Estimated Creat Clear 52, Estimated GFR 36 L, Est GFR ( Amer) 43 L, Glucose 132 H, Calcium 9.4, Magnesium 2.3, Total Bilirubin 0.5, AST 35, ALT 20, Alkaline Phosphatase 119, Troponin I < 0.01, Total Protein 7.3, Albumin 4.1, Globulin 3.2, Albumin/Globulin Ratio 1.3 04/20/25 15:49: Urine Opiates Screen Positive H, Urine Methadone Screen Negative, Ur Barbituates Screen Negative, Ur Phencyclidine Scrn Negative, Ur Amphetamines Screen Negative, U Benzodiazepines Scrn Negative, Urine Cocaine Screen Negative, U Marijuana (THC) Screen Negative 04/21/25 05:41: WBC 5.5 D, RBC 4.04 L, Hgb 11.3 L, Hct 34.7 L, MCV 85.9, MCH 28.0, MCHC 32.6, RDW 13.7, Plt Count 362, MPV 9.4, Neut % (Auto) 53.3, Lymph % (Auto) 38.7, Daniels % (Auto) 7.8, Eos % (Auto) 0.0 L, Baso % (Auto) 0.2, Neut # (Auto) 2.9, Lymph # (Auto) 2.1, Daniels # (Auto) 0.4, Eos # (Auto) 0.0, Baso # (Auto) 0.0, Sodium 139, Potassium 3.8 D, Chloride 101, Carbon Dioxide 32 H, Anion Gap 9.8, BUN 16 D, Creatinine 1.20 H, Estimated Creat Clear 66, Estimated GFR 46 L, Est GFR ( Amer) 56 L D, Glucose 99 D, Calcium 9.1, Magnesium 2.3, Total Bilirubin 0.2, AST 32, ALT 14 D, Alkaline Phosphatase 118, Total Protein 6.6, Albumin 3.7, Globulin 2.9, Albumin/Globulin Ratio 1.3 I & O for Last 24 hours: Intake & Output 04/18/25 04/19/25 04/20/25 04/21/25 23:59 23:59 23:59 23:59 Intake Total 1920 / 1920 240 / 240 Output Total 0 / 0 0 / 0 Balance 1920 / 192 240 / 240 Weight 82.242 kg 81.465 kg Constitutional Constitutional: no acute distress, average body habitus and cooperative *Routine HEENT Exam Head: Present normocephalic Eye: Present EOMI and PERRL ENT: Present mucous membranes moist *Routine Neck Exam Neck: Present supple; Absent lymphadenopathy *Routine Respiratory Exam Respiratory: Present CTA bilaterally; Absent rhonchi, wheezes or crackles *Routine Cardiovascular Exam Cardiovascular: Present RRR *Routine Abdominal Exam Abdominal: Present soft and normoactive bowel sounds; Absent tenderness *Routine Rectal Exam Patient deferred: visual exam *Routine Exam Patient deferred: external exam *Routine Extremities Exam Extremities: Absent cyanosis, clubbing or edema *Routine Skin Exam Skin: Present intact and warm; Absent rash *Routine Neurological Exam Neurological: Present alert, oriented X3 and moving all extremities; Absent altered mental status Results Data Completed and Pending Labs on day of discharge: Labs from last 24 hours 04/21/25 04/20/25 04/20/25 05:41 15:49 11:50 WBC 5.5 D 7.4 RBC 4.04 L 4.04 L Hgb 11.3 L 11.4 L Hct 34.7 L 34.4 L MCV 85.9 85.1 MCH 28.0 28.2 MCHC 32.6 33.1 RDW 13.7 13.5 Plt Count 362 393 MPV 9.4 9.6 Neut % (Auto) 53.3 66.8 Lymph % (Auto) 38.7 27.7 Daniels % (Auto) 7.8 5.0 Eos % (Auto) 0.0 L 0.0 L Baso % (Auto) 0.2 0.1 Neut # (Auto) 2.9 5.0 Lymph # (Auto) 2.1 2.1 Daniels # (Auto) 0.4 0.4 Eos # (Auto) 0.0 0.0 Baso # (Auto) 0.0 0.0 Sodium 139 137 Potassium 3.8 D 2.8 L* Chloride 101 93 L Carbon Dioxide 32 H 33 H Anion Gap 9.8 13.8 BUN 16 D 26 H Creatinine 1.20 H 1.50 H Estimated Creat Clear 66 52 Estimated GFR 46 L 36 L Est GFR ( Amer) 56 L D 43 L Glucose 99 D 132 H Calcium 9.1 9.4 Magnesium 2.3 2.3 Total Bilirubin 0.2 0.5 AST 32 35 ALT 14 D 20 Alkaline Phosphatase 118 119 Troponin I < 0.01 Total Protein 6.6 7.3 Albumin 3.7 4.1 Globulin 2.9 3.2 Albumin/Globulin Ratio 1.3 1.3 TSH Free T4 Salicylates Urine Opiates Screen Positive H Urine Methadone Screen Negative Acetaminophen Ur Barbituates Screen Negative Ur Phencyclidine Scrn Negative Ur Amphetamines Screen Negative U Benzodiazepines Scrn Negative Urine Cocaine Screen Negative U Marijuana (THC) Screen Negative Plasma/Serum Alcohol 04/20/25 11:30 WBC RBC Hgb Hct MCV MCH MCHC RDW Plt Count MPV Neut % (Auto) Lymph % (Auto) Daniels % (Auto) Eos % (Auto) Baso % (Auto) Neut # (Auto) Lymph # (Auto) Daniels # (Auto) Eos # (Auto) Baso # (Auto) Sodium Potassium Chloride Carbon Dioxide Anion Gap BUN Creatinine Estimated Creat Clear Estimated GFR Est GFR ( Amer) Glucose Calcium Magnesium Total Bilirubin AST ALT Alkaline Phosphatase Troponin I Total Protein Albumin Globulin Albumin/Globulin Ratio TSH 0.17 L Free T4 0.91 Salicylates < 1.0 L Urine Opiates Screen Urine Methadone Screen Acetaminophen < 10 L Ur Barbituates Screen Ur Phencyclidine Scrn Ur Amphetamines Screen U Benzodiazepines Scrn Urine Cocaine Screen U Marijuana (THC) Screen Plasma/Serum Alcohol < 10 DS: Diagnosis Discharge Diagnosis (1) Acute hypokalemia: Status: Acute Code(s): E87.6 - Hypokalemia (2) Toxic encephalopathy: Status: Acute Code(s): G92.9 - Unspecified toxic encephalopathy Qualifiers: Toxic encephalopathy cause: unspecified toxin Qualified Code(s): G92.9 - Unspecified toxic encephalopathy Problem details: Secondary to polypharmacy and opiates (3) Constipation: Status: Acute Code(s): K59.00 - Constipation, unspecified Qualifiers: Constipation type: drug induced constipation Qualified Code(s): K59.03 - Drug induced constipation (4) Chronic kidney disease, stage 3a: Status: Acute Code(s): N18.31 - Chronic kidney disease, stage 3a (5) HTN (hypertension): Status: Chronic Code(s): I10 - Essential (primary) hypertension Qualifiers: Hypertension type: primary hypertension Qualified Code(s): I10 - Essential (primary) hypertension (6) HLD (hyperlipidemia): Status: Chronic Code(s): E78.5 - Hyperlipidemia, unspecified Qualifiers: Hyperlipidemia type: unspecified Qualified Code(s): E78.5 - Hyperlipidemia, unspecified (7) Major depressive disorder: Status: Chronic Code(s): F32.9 - Major depressive disorder, single episode, unspecified Qualifiers: Active/Remission status: currently active Major depression episode severity: moderate Major depression recurrence: recurrent Qualified Code(s): F33.1 - Major depressive disorder, recurrent, moderate (8) Obesity (BMI 30.0-34.9): Status: Chronic Code(s): E66.811 - Obesity, class 1 Meds Home Medications and Allergies Home Medications ?Medication ?Instructions ?Recorded ?Confirmed ?Type omeprazole 40 mg capsule,delayed 40 mg PO DAILY 30 days #30 caps 07/25/24 04/20/25 Rx release albuterol sulfate 90 mcg/actuation 2 puff inhalation DAILY 08/15/24 04/20/25 History aerosol inhaler budesonide 160 mcg-glycopyr 9 2 inh inhalation BID #10.7 grams 08/19/24 04/20/25 Rx mcg-formot 4.8 mcg/actuation HFA inhaler (Breztri Aerosphere) aspirin 81 mg tablet,delayed 81 mg PO DAILY 08/29/24 04/20/25 History release (Adult Low Dose Aspirin) chlorthalidone 25 mg tablet 12.5 mg (1/2 x 25 mg) PO DAILY #30 11/07/24 04/20/25 Rx tabs flecainide 50 mg tablet 50 mg PO BID PRN palpitations #60 11/21/24 04/21/25 Rx tabs polyethylene glycol 3350 17 17 g PO BID #238 grams 12/27/24 04/20/25 Rx gram/dose oral powder (Miralax) metoprolol succinate 50 mg 50 mg PO BID #60 tabs 01/06/25 04/20/25 Rx tablet,extended release 24 hr diltiazem HCl 180 mg 180 mg PO DAILY #30 caps 01/13/25 04/20/25 Rx capsule,extended release 24 hr tizanidine 4 mg tablet 4 mg PO TID 90 days #540 tabs 01/16/25 04/09/25 Rx linaclotide 290 mcg capsule 290 mcg PO DAILY #30 caps 03/05/25 04/20/25 Rx (Linzess) amlodipine 2.5 mg tablet 2.5 mg PO DAILY #30 tabs 03/27/25 04/20/25 Rx semaglutide (weight loss) 1.7 1.7 mg (0.75 mL) SQ WEEKLY 30 days 03/27/25 04/20/25 Rx mg/0.75 mL subcutaneous pen #3.75 mL injector bupropion HCl 150 mg 24 hr tablet, 150 mg PO DAILY 14 days #14 tabs 04/09/25 04/20/25 Rx extended release (Wellbutrin XL) pramipexole 0.25 mg tablet 0.25 mg PO HS 04/20/25 04/20/25 History quetiapine 100 mg tablet 100 mg PO HS 04/20/25 04/21/25 History trazodone 50 mg tablet 25 - 50 mg PO HSP PRN sleep 04/20/25 04/21/25 History oxycodone-acetaminophen 10 mg-325 1 tab PO QIDP PRN Moderate Pain 04/21/25 04/21/25 History mg tablet (Scale Score 5-6) tizanidine 4 mg tablet 8 mg PO DIRECTED muscle spasms 04/21/25 04/21/25 History New Prescriptions to Start Prescriptions: Allergies Allergy/AdvReac Type Severity Reaction Status Date / Time codeine Allergy Unknown Unknown Verified 04/09/25 10:35 allergy reaction morphine Allergy Unknown Unknown Verified 04/09/25 10:35 allergy reaction naloxone Allergy Unknown Unknown Verified 04/09/25 10:35 allergy reaction paroxetine (From Paxil) Allergy Unknown Unknown Verified 04/09/25 10:35 allergy reaction losartan AdvReac Intermediate JOSE ENRIQUE Verified 04/09/25 10:35 carvedilol (From Coreg) AdvReac Mild hallucinati Verified 04/09/25 10:35 ons candesartan AdvReac JOSE ENRIQUE Verified 04/09/25 10:35 irbesartan AdvReac JOSE ENRIQUE Verified 04/09/25 10:35 Discharge Plan Disposition Patient Disposition: Home, Self-Care Condition: Good Follow up Plan Follow up with: Christophe Verdin MD [Primary Care Provider, [facility]] - Enter time for follow up Prescriptions/Medication Reconciliation: Continued aspirin [Adult Low Dose Aspirin] 81 mg tablet,delayed release (DR/EC) 81 mg PO DAILY Breztri Aerosphere 160-9-4.8 mcg/actuation HFA aerosol inhaler 2 inh inhalation BID Qty: 10.7 8RF diltiazem HCl 180 mg capsule,extended release 24hr 180 mg PO DAILY Qty: 30 5RF tizanidine 4 mg tablet 4 mg PO TID 90 Days Qty: 540 3RF Rx Instructions: 2 tablets (8mg) AM, 2 tablets in the afternoon (8mg) and 2 1/2 tablets at bedtime (10mg) albuterol sulfate 90 mcg/actuation HFA aerosol inhaler 2 puff inhalation DAILY flecainide 50 mg tablet 50 mg PO BID PRN (Reason: palpitations) Qty: 60 0RF semaglutide (weight loss) 1.7 mg/0.75 mL pen injector 1.7 mg SQ WEEKLY 30 Days Qty: 3.75 0RF amlodipine 2.5 mg tablet 2.5 mg PO DAILY Qty: 30 5RF bupropion HCl [Wellbutrin XL] 150 mg tablet extended release 24 hr 150 mg PO DAILY 14 Days Qty: 14 0RF omeprazole 40 mg capsule,delayed release(DR/EC) 40 mg PO DAILY 30 Days Qty: 30 11RF chlorthalidone 25 mg tablet 12.5 mg PO DAILY Qty: 30 2RF metoprolol succinate 50 mg tablet extended release 24 hr 50 mg PO BID Qty: 60 5RF Linzess 290 mcg capsule 290 mcg PO DAILY Qty: 30 2RF polyethylene glycol 3350 [Miralax] 17 gram/dose powder 17 g PO BID Qty: 238 0RF Rx Instructions: Take BID until having regular bowel movements, then can decrease to once daily trazodone 50 mg tablet 25 - 50 mg PO HSP PRN (Reason: sleep) Rx Instructions: 0.5-1 tab 1 hour HS quetiapine 100 mg tablet 100 mg PO HS pramipexole 0.25 mg tablet 0.25 mg PO HS tizanidine 4 mg tablet 8 mg PO DIRECTED Patient Comments: TAKE 2 TABLETS BY MOUTH EVERY MORNING, 2 TABLETS IN THE AFTERNOON AND 2 AND 1/2 TABLETS AT BEDTIME oxycodone-acetaminophen 10-325 mg tablet 1 tab PO QIDP PRN (Reason: Moderate Pain (Scale Score 5-6)) Patient Comments: TAKE 1 TABLET BY MOUTH 4 TIMES A DAY NEEDED FOR PAIN Problem Reconciliation Problems Reviewed?: Yes Patient Discharge Instructions ACTIVITY: Continue current activity DIET: continue same diet Patient Instructions: DI for Hypokalemia, DI for Drug Overdose in Adults Print Language: Faroese Providers Primary Care Provider: Christophe Verdin Provider: Jarad Tidwell Attending Provider: Jarad Tidwell
--- NOTE | 2025-04-21 09:36 | HMH.PTEV ---
Physical Therapy Evaluation Rehab PT IP Evaluation Start: 04/20/25 18:41 Freq: ONCE Status: Active Protocol: Document 04/21/25 09:30 GAVI (Rec: 04/21/25 09:34 GAVI [id number]) Subjective/History History History Per H&P: Ms. Dunlap is a 60-year-old female with occasions for depression, anxiety, pain and neuropathy. History of polypharmacy, depression, paroxysmal A-fib , hypertension. She presented to the ER feeling uncoordinated and an altered mental state. She is having trouble focusing and walking. Started several days ago. She was slow to respond on initial presentation to the ER and somnolent. She has been more forgetful lately. After much discussion with ER physician, she admitted to snorting her pain medication this morning. Workup in the ER found low potassium at 2.8, CTs were unremarkable with no acute findings. Given her altered mental status and hypokalemia, medicine consulted for admission and further management . Subjective Subjective Pt reports she lives with her . Pt usually IND with all mobility without AD. Pt lives in a single-story home with 1 [facility] How much help from another person do you currently need... Turning from your None back to your side while in a flat bed without using bedrails? Moving from lying on None back to sitting on the side of a flat bed without using bedrails? Moving to and from a None bed to a chair ( including a wheelchair)? Standing up from a None chair using your arms? (e.g., wheelchair, bedside chair) Walking in hospital None room? Climbing 3-5 steps A little with a railing? Mobility Score 23 Mobility Level [facility] Mobility 7 Walk 25 feet or more Mobility Calculator Rehab PT IP Eval Objective Appearance Patient Behavior Appropriate,Cooperative Patient Orientation Person,Situation Difficulty following none instructions Speech Pattern Clear Ambulation Patient Able to Yes Ambulate Ambulation Observation IP General Gait No Deviations/Normal Pattern Observation Ambulation Distance 40 (feet) Ambulation Assistive None Device Ambulation Ability Independent Balance Ability to Arise Able, w/o using arms Sitting Balance Steady, safe Standing Balance Narrow stance w/o support Dynamic Sitting Normal Balance Ability Dynamic Standing Normal Balance Ability Transfers Bed Transfer Ability Independent Sit to Stand Bed Independent Transfer Ability Rehab PT IP prob,goals,plan Problems Date of Evaluation: 04/21/25 Rehab Potential Rehab Potential Innapropriate for Skilled Therapy Discharge Plan PT Discharge Plan Pt not appropriate for skilled acute care PT d/t IND mobility. Eval Complexity Eval Charge Codes 70151 - Low Complexity PHYSICIAN CERTIFICATION: I certify the specified therapy services for Sheryl Dunlap are required, authorized, and reviewed every 30 days.
--- NOTE | 2025-04-21 09:42 | HMH.PTEV ---
Physical Therapy Evaluation Rehab PT IP Evaluation Start: 04/20/25 18:41 Freq: ONCE Status: Complete Protocol: Document 04/21/25 09:30 GAVI (Rec: 04/21/25 09:34 GAVI [id number]) Subjective/History History History Per H&P: Ms. Dunlap is a 60-year-old female with occasions for depression, anxiety, pain and neuropathy. History of polypharmacy, depression, paroxysmal A-fib , hypertension. She presented to the ER feeling uncoordinated and an altered mental state. She is having trouble focusing and walking. Started several days ago. She was slow to respond on initial presentation to the ER and somnolent. She has been more forgetful lately. After much discussion with ER physician, she admitted to snorting her pain medication this morning. Workup in the ER found low potassium at 2.8, CTs were unremarkable with no acute findings. Given her altered mental status and hypokalemia, medicine consulted for admission and further management . Subjective Subjective Pt reports she lives alone. Pt usually IND with all mobility without AD. Pt lives in a single-story home with [address] [employer] Pt still drives. [facility] How much help from another person do you currently need... Turning from your None back to your side while in a flat bed without using bedrails? Moving from lying on None back to sitting on the side of a flat bed without using bedrails? Moving to and from a None bed to a chair ( including a wheelchair)? Standing up from a None chair using your arms? (e.g., wheelchair, bedside chair) Walking in hospital None room? Climbing 3-5 steps A little with a railing? Mobility Score 23 Mobility Level [facility] Mobility 7 Walk 25 feet or more Mobility Calculator Rehab PT IP Eval Objective Appearance Patient Behavior Appropriate,Cooperative Patient Orientation Person,Situation Difficulty following none instructions Speech Pattern Clear Ambulation Patient Able to Yes Ambulate Ambulation Observation IP General Gait No Deviations/Normal Pattern Observation Ambulation Distance 40 (feet) Ambulation Assistive None Device Ambulation Ability Independent Balance Ability to Arise Able, w/o using arms Sitting Balance Steady, safe Standing Balance Narrow stance w/o support Dynamic Sitting Normal Balance Ability Dynamic Standing Normal Balance Ability Transfers Bed Transfer Ability Independent Sit to Stand Bed Independent Transfer Ability Rehab PT IP prob,goals,plan Problems Date of Evaluation: 04/21/25 Rehab Potential Rehab Potential Innapropriate for Skilled Therapy Discharge Plan PT Discharge Plan Pt not appropriate for skilled acute care PT d/t IND mobility. Eval Complexity Eval Charge Codes 85039 - Low Complexity PHYSICIAN CERTIFICATION: I certify the specified therapy services for Sheryl Dunlap are required, authorized, and reviewed every 30 days.
[2025-04-21] MEDS: GABAPENTIN 600MG TABLET 600 MG PO (10:11)
[2025-04-21] MEDS: METOPROLOL SUCCINATE XL 50MG TABLET 50 MG PO (10:11)
[2025-04-21] MEDS: ASPIRIN EC 81MG TABLET 81 MG PO (10:11)
[2025-04-21] MEDS: CHLORTHALIDONE 25MG TABLET 12.5 MG PO (10:11)
[2025-04-21] MEDS: FLECAINIDE 50MG TABLET 50 MG PO (10:11)
[2025-04-21] MEDS: FORMOTEROL IH (10:12)
[2025-04-21] MEDS: dilTIAZem HCL 180MG CAP.ER.24H 180 MG PO (10:12)
[2025-04-21] MEDS: GLYCOPYRROLATE IH (10:12)
[2025-04-21] MEDS: AMLODIPINE 2.5MG TABLET 2.5 MG PO (10:12)
[2025-04-21] MEDS: BUDESONIDE IH (10:12)
[2025-04-21] MEDS: OXYCODONE 7.5MG W/APAP 325MG TABLET 1 EACH PO (10:17)
--- NOTE | 2025-04-22 10:27 | SW/DCPLANNER ---
Spoke with patient on the phone. Patient stated that she is doing okay and that she fell 3 times last night. Patient stated that she is going to call here later and schedule her follow up appointment with her primary care provider. Patient stated that she was not prescribed any new medicine. patient stated that she has no concerns or questions at this time. Ashleigh Sutton
== END 2025-04-21 11:50 | disposition home or self-care (01) ==
LOC: ER 12:03 → 2ND 17:22
PROVIDERS: Admitting Provider Internal Medicine Adolescent Medicine; Emergency Provider Emergency Medicine; PCP Family Medicine; Visit Provider Internal Medicine Adolescent Medicine
DX: E87.6 Hypokalemia (principal); G92.9 Unspecified toxic encephalopathy; K59.03 Drug induced constipation; F33.1 Major depressive disorder, recurrent, moderate; I12.9 Hypertensive chronic kidney disease with stage 1 through stage 4 chronic kidney disease, or unspecified chronic kidney disease; N18.31 Chronic kidney disease, stage 3a; E78.5 Hyperlipidemia, unspecified; E66.811 Obesity, class 1; I48.0 Paroxysmal atrial fibrillation; F43.10 Post-traumatic stress disorder, unspecified; F39 Unspecified mood [affective] disorder; F41.9 Anxiety disorder, unspecified; R91.8 Other nonspecific abnormal finding of lung field; Z95.828 Presence of other vascular implants and grafts; Z86.73 Personal history of transient ischemic attack (TIA), and cerebral infarction without residual deficits; Z88.5 Allergy status to narcotic agent; Z88.8 Allergy status to other drugs, medicaments and biological substances; Z68.28 Body mass index [BMI] 28.0-28.9, adult; Z79.899 Other long term (current) drug therapy
CPT/HCPCS: 36415; 70450; 70496; 70498; 80053; 80307; 80320; 80329; 83735; 84439; 84443; 84484; 85025; 93005; 96365; 96366; 96372; 96375; 97161; 97166; 99285; G0378; J1650; J2405; J3480; J7120; Q9967

== ENCOUNTER 2025-04-22 16:46 | Emergency (ER) | payer MEDICARE, MEDICAID, SELFPAY ==
--- OUTSIDE RECORDS SUMMARY | 2017-09-08 14:30 | XMS_ITS | Encounter Summary ---
Author Organization [place] [address] Care Team Providers Care Astrophysics Professor Name Role Phone Mingo Whatley MD Primary Care Provider Un available Encounter Details Date Type Department Care Team (Latest Contact Info) Description 09/08/2017 1:30 PM [facility] Hospital Encounter [facility] Referral Lab [address] [phone] Harjinder Cain MD [address] [place] [address] Urinary tract infection Social History Tobacco Use [...] specified documented in this encounter Care Teams Astrophysics Professor Relationship Specialty Start Date End Date Mingo Whatley MD PCP - General Family Medicine 09/07/17 9 documented as of this encounter
--- OUTSIDE RECORDS SUMMARY | 2020-03-16 10:53 | XMS_ITS | Encounter Summary ---
Author Organization [place] [address] Care Team Providers Care Senior Project Manager Name Role Phone Candi Nuno MD Primary Care Provider [phone] Encounter Details Date Type Department Care Team (Latest Contact Info) Description 03/16/2020 10:53 AM EDT Hospital Encounter [facility] Referral Lab 1 [place] [address] Major depressive disorder, single episode, moderate (HCC) [...] documented in this encounter Care Teams Senior Project Manager Relationship Specialty Start Date End Date Candi Nuno MD [address] [place] [address] PCP - General Family Medicine 05/23/19 04/10/23 documented as of this encounter
[2025-04-22 16:59] VITALS: BP 100/70; PULSE 74; RESP 20; TEMP 36.8; O2SAT 95; BMI 27.6
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
--- NOTE | 2025-04-22 17:18 | CT_ITS ---
PROCEDURE INFORMATION: Exam: CT Maxillofacial Without Contrast Exam date and time: 04/22/2025 6:09 PM Age: 60 years old Clinical indication: Injury or trauma; Fall; Blunt trauma (contusions or hematomas) TECHNIQUE: Imaging protocol: Computed tomography of the face without contrast. Radiation optimization: All CT scans at this facility use at least one of these dose optimization techniques: automated exposure control; mA and/or kV adjustment per patient size (includes targeted exams where dose is matched to clinical indication); or iterative reconstruction. COMPARISON: CT HEAD/BRAIN WO CON 04/22/2025 6:07 PM FINDINGS: Paranasal sinuses: Mild mucosal thickening in the paranasal sinuses. Orbital cavities: Orbits are normal. Globes are unremarkable. Nasal cavity: Nasal septal defect is noted. Bones: No acute facial fractures. Soft tissues: Unremarkable. IMPRESSION: No acute facial fractures.
--- NOTE | 2025-04-22 17:18 | CT_ITS ---
PROCEDURE INFORMATION: Exam: CT Cervical Spine Without Contrast Exam date and time: 04/22/2025 6:12 PM Age: 60 years old Clinical indication: Injury or trauma; Fall; Blunt trauma TECHNIQUE: Imaging protocol: Computed tomography of the cervical spine without contrast. Radiation optimization: All CT scans at this facility use at least one of these dose optimization techniques: automated exposure control; mA and/or kV adjustment per patient size (includes targeted exams where dose is matched to clinical indication); or iterative reconstruction. COMPARISON: CT CERVICAL SPINE WO CON 12/01/2021 10:43 AM FINDINGS: Bones: Anterior fusion of C6-C7. Hardware appears intact. Small chronic bony structure adjacent to the right C4-C5 facets. Multilevel degenerative changes of the cervical spine producing multiple levels of mild spinal canal stenosis. Lungs: Lung apices are normal. Soft tissues: Unremarkable. IMPRESSION: No acute fracture or malalignment of the cervical spine.
--- NOTE | 2025-04-22 17:18 | XR_ITS ---
PROCEDURE INFORMATION: Exam: XR Left Shoulder Exam date and time: 04/22/2025 6:14 PM Age: 60 years old Clinical indication: Injury or trauma; Fall; Blunt trauma (contusions or hematomas); Shoulder; Left TECHNIQUE: Imaging protocol: Radiologic exam of the left shoulder. Views: 2 or more views. COMPARISON: CT CERVICAL SPINE WO CON 04/22/2025 6:12 PM FINDINGS: Bones/joints: No acute fracture or dislocation. Soft tissues: Normal. IMPRESSION: No acute fracture or dislocation.
--- NOTE | 2025-04-22 17:18 | CT_ITS ---
PROCEDURE INFORMATION: Exam: CT Head Without Contrast Exam date and time: 04/22/2025 6:07 PM Age: 60 years old Clinical indication: Injury or trauma; Fall; Blunt trauma (contusions or hematomas) TECHNIQUE: Imaging protocol: Computed tomography of the head without contrast. Radiation optimization: All CT scans at this facility use at least one of these dose optimization techniques: automated exposure control; mA and/or kV adjustment per patient size (includes targeted exams where dose is matched to clinical indication); or iterative reconstruction. COMPARISON: CT ANGIO HEAD 04/20/2025 1:01 PM FINDINGS: Brain: Normal. No hemorrhage. Unremarkable white matter. No mass effect. Cerebral ventricles: No ventriculomegaly. Paranasal sinuses: Mild mucosal thickening in the paranasal sinuses. Mastoid air cells: Visualized mastoid air cells are well aerated. Bones: Unremarkable. No acute fracture. Soft tissues: Unremarkable. IMPRESSION: No acute intracranial findings.
--- OUTSIDE RECORDS SUMMARY | 2025-04-22 17:19 | XMS_ITS | Clinical Summary ---
[facility] Address [address] [place] [address] Care Team Providers Care Industrial Methods Consultant Name Role Phone Albert Oliveros MD Primary Care Provider [phone] Allergies Active Allergy Reactions Criticality Noted Date [...] (11/17/2021): Added automatically from request for surgery [id number] Anxiety 06/03/2021 Chronic back pain 06/03/2021 PSVT [...] history exists Medical Devices Implanted Type Area Fountain Pen Turner Device Identifier Shelf Expiration Date Model / Serial / Lot Stent Mason/Divr Surpassevolve Ds 5x15/5.2mm - [id number] Implanted:Qty: 1 on 12/09/2021 by Car Ledezma MD at [facility] Implant DESIREE KEVEN 11/19/2022 [id number] Insurance [facility] DUAL COMPLETE MEDIC [facility] MEDICAID Advance Directives * CPR (Attempt [...] Of Support Discussed With: Patient Care Teams Industrial Methods Consultant Relationship Specialty Start Date End Date Albert Oliveros MD [address] [place] [facility] [address] ATTN: [place] [address] PCP - General Emergency Medicine 06/02/21
--- OUTSIDE RECORDS SUMMARY | 2025-04-22 17:21 | XMS_ITS | Clinical Summary ---
Author Organization [facility] Address [address] [place] [address] Care Team Providers Care Newspaper Manager Name Role Phone GuidoHarjinder Primary Care Provider [phone] Social History Tobacco Use Types Packs/Day Years Used Date Smoking Tobacco: Never Assessed Comments Unknown Sex and Gender Information Value Date Recorded Sex Assigned at Not on file Legal Sex Female 8:28 PM EDT Gender Identity Not on file Sexual Orientation Not on file Plan of Treatment Not on file Insurance [employer] MEDICARE [employer] MED[employer]ID Care Teams Newspaper Manager Relationship Specialty Start Date End Date Harjinder Lora DO [address] [place] [address] PCP - General 02/19/24
--- OUTSIDE RECORDS SUMMARY | 2025-04-22 17:21 | XMS_ITS | Encounter Summary ---
Author Organization [facility] Address [address] [place] [address] Care Team Providers Care Engraver Letter Name Role Phone Alexx Madrid MD Primary Care Provider Harjinder Lora DO Primary Care Provider [phone] Encounter Details Date Type Department Care Team (Late st Contact Info) Description 05/28/2021 Community [facility] [address] [place] [address] [place], [place] [address] [place], [place] [id number] Chronic joint pain (Primary Dx) Social History [...] unspecified documented in this encounter Care Teams Engraver Letter Relationship Specialty [place] [address] [place] [id number] PCP - General 12/11/20 06/17/21 Harjinder Lora DO [address] [place] [address] PCP - General 02/19/24 documented as of this encounter
[2025-04-22 19:19] VITALS: BP 144/93; PULSE 79; RESP 13; O2SAT 96
[2025-04-22] MEDS: BELLADONNA ALKALOIDS 60 ML ML PO (19:36)
[2025-04-22 20:09] VITALS: BP 144/93; PULSE 81; RESP 18; TEMP 36.6; O2SAT 98
== END 2025-04-22 20:13 | disposition home or self-care (01) ==
PROVIDERS: Emergency Provider Student in an Organized Health Care Education/Training Program; PCP Family Medicine
DX: M25.512 Pain in left shoulder (principal); S00.81XA Abrasion of other part of head, initial encounter; R42 Dizziness and giddiness; I10 Essential (primary) hypertension; W01.198A Fall on same level from slipping, tripping and stumbling with subsequent striking against other object, initial encounter; Z87.891 Personal history of nicotine dependence
CPT/HCPCS: 70450; 70486; 72125; 73030; 99282; 99285

== ENCOUNTER 2025-05-09 10:36 | Outpatient (CLI) | payer MEDICARE, MEDICAID, SELFPAY ==
--- OUTSIDE RECORDS SUMMARY | 2017-09-08 14:30 | XMS_ITS | Encounter Summary ---
Author Organization [place] [address] Care Team Providers Care Reagent Tender Name Role Phone Mingo Whatley MD Primary Care Provider Un available Encounter Details Date Type Department Care Team (Latest Contact Info) Description 09/08/2017 1:30 PM [facility] Hospital Encounter [facility] Referral Lab [address] [phone] Harjinder Cain MD [address] [place] [address] Urinary tract infection Social History Tobacco Use [...] of Assessment Author No 09/07/2017 9:10 AM AVIAL Shun Dior, RMA * Does this person [...] specified documented in this encounter Care Teams Reagent Tender Relationship Specialty Start Date End Date Mingo Whatley MD PCP - General Family Medicine 09/07/17 9 documented as of this encounter
--- OUTSIDE RECORDS SUMMARY | 2020-03-16 10:53 | XMS_ITS | Encounter Summary ---
Author Organization [place] [address] Care Team Providers Care Medical Transcription Radiology Name Role Phone Candi Nuno MD Primary Care Provider Encounter Details Date Type Department Care Team (Latest Contact Info) Description 03/16/2020 10:53 AM EDT Hospital Encounter [facility] Referral Lab 1 [place] [address] Major depressive disorder, single episode, moderate (HCC) [...] moderate documented in this encounter Care Teams Medical Transcription Radiology Relationship Specialty Start Date End Date Candi Nuno MD [address] [place] [address] PCP - General Family Medicine 05/23/19 04/10/23 documented as of this encounter
[2025-05-09 21:35] LABS: Chloride 95 mmol/L (98-107)
[2025-05-09 21:36] LABS: Potassium 3.7 mmoL/L (3.5-5.1); Sodium 135 mmol/L (136-145)
[2025-05-09 21:39] LABS: Anion Gap 9.7 mEq/L (5-15); Blood Urea Nitrogen 20 mg/dl (7-17); Calcium 9.4 mg/dl (8.4-10.2); Carbon Dioxide 34 mmol/L (22.0-30.0); Creatinine,Serum 1.20 mg/dl (0.52-1.04); Estimated Glomerular Filt Rate 46 ml/min (>60); GFR (African American) 56 ML/MIN (>60); Glucose 82 mg/dl (74-100)
--- OUTSIDE RECORDS SUMMARY | 2025-05-12 10:51 | XMS_ITS | Clinical Summary ---
[facility] Address [address] [place] [address] Care Team Providers Care Electroencephalographic Technologist Name Role Phone Albert Oliveros MD Primary Care Provider [phone] Allergies Active Allergy Reactions Criticality Noted Date [...] (11/17/2021): Added automatically from request for surgery [id number] Anxiety 06/03/2021 Chronic back pain 06/03/2021 PSVT [...] history exists Medical Devices Implanted Type Area Hobbing Press Operator Device Identifier Shelf Expiration Date Model / Serial / Lot Stent Mason/Divr Surpassevolve Ds 5x15/5.2mm - [id number] Implanted:Qty: 1 on 12/09/2021 by Car Ledezma MD at [facility] Implant DESIREE KEVEN 11/19/2022 [id number] Insurance [facility] DUAL COMPLETE MEDIC [facility] MEDICAID Advance Directives * CPR (Attempt to [...] Of Support Discussed With: Patient Care Teams Electroencephalographic Technologist Relationship Specialty Start Date End Date Albert Oliveros MD [address] [place] [facility] [address] ATTN: [place] [address] PCP - General Emergency Medicine 06/02/21
--- OUTSIDE RECORDS SUMMARY | 2025-05-12 10:52 | XMS_ITS | Clinical Summary ---
Author Organization [facility] Address [address] [place] [address] Care Team Providers Care Job Printer Name Role Phone GuidoHarjinder Primary Care Provider [phone] Social History Tobacco Use Types Packs/Day Years Used Date Smoking Tobacco: Never Assessed Comments Unknown Sex and Gender Information Value Date Recorded Sex Assigned at Not on file Legal Sex Female 8:28 PM EDT Gender Identity Not on file Sexual Orientation Not on file Plan of Treatment Not on file Insurance [employer] MEDICARE [employer] MEDICAID Care Teams Job Printer Relationship Specialty Start Date End Date Harjinder Lora DO [address] [place] [address] PCP - General 02/19/24
--- OUTSIDE RECORDS SUMMARY | 2025-05-12 10:52 | XMS_ITS | Encounter Summary ---
Author Organization [facility] Address [address] [place] [address] Care Team Providers Care Traffic Technician Name Role Phone Alexx Madrid MD Primary Care Provider Harjinder Lora DO Primary Care Provider [phone] Encounter Details Date Type Department Care Team (Late st Contact Info) Description 05/28/2021 Community [facility] Community Practice [address] [place] [address] [place], [place] [address] [place], [place] [phone] Chronic joint pain (Primary Dx) Social History [...] unspecified documented in this encounter Care Teams Traffic Technician Relationship Specialty [place] [address] [place] [id number] PCP - General 12/11/20 06/17/21 Harjinder Lora DO [address] [place] [address] PCP - General 02/19/24 documented as of this encounter
--- OUTSIDE RECORDS SUMMARY | 2025-05-12 10:52 | XMS_ITS | Continuity of Care Document ---
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 REPAIR/SUBACROMIAL DECOMPRESSION/MUMFOR D/BICEP TENODESIS 12/07/2012 6:20 AM EDT - 12/07/2012 11:45 AM EDT Hospital Encounter [facility] [address] [facility] [place] [address] Syed Walker MD Discharge Disposition: Home or Self Care 11/09/2012 1:59 PM EDT - 11/09/2012 11:59 PM EDT Hospital Encounter [facility] MRI [address] [place] [address] Syed Lynn, DPM Pain in joint, shoulder region; Superior glenoid labrum lesion Discharge Disposition: Home or Self Care 10/25/2012 Telephone [facility] [address] [place] [address] Ashley Argueta, [facility] Other 10/04/[address] [facility] [address] [place] [address] Roxy Almanzar, A Other 10/01/2012 11:38 AM EST - 10/01/2012 11:59 PM EST Hospital Encounter [facility] MRI [address] [place], [place] [id number] Mingo Gilman MD Lumbago Discharge Disposition: Home or Self Care 09/27/2012 Telephone [facility] [address] [place] [address] Hunt, Viral V, DO Results 09/24/2012 3:23 PM EST - 09/24/2012 11:59 PM EST Hospital Encounter [facility] [address] [place] [address] Hunt, Viral V, DO Left shoulder strain; Left shoulder pain; Frozen shoulder Discharge Disposition: Home or Self Care 09/18/2012 8:20 AM EST Office Visit [facility] [address] [place] [address] Hunt, Viral V, DO Anxiety (Primary Dx); Depression; Acute sinusitis; Left shoulder strain; Left shoulder pain; Frozen shoulder; DDD (degenerative disc disease); Cauda equina syndrome (HCC) 09/17/2012 Telephone [facility] [address] [place] [address] Hunt, Viral V, DO Referral 05/03/2012 Telephone [facility] [place] [address] [place] [address] Lucita Feng RN Abnormal Radiology 04/19/2012 Telephone [facility] [address] [place] [address] Kylie Duran, Clerical Staff Abnormal Radiology 04/13/2012 10:15 AM EDT Hospital Encounter [facility] Mammography [address] [place] [address] Hunt, Viral V, DO Other screening mammogram Discharge Disposition: Home or Self Care 04/13/2012 10:16 AM EDT - 04/13/2012 11:59 PM EDT Hospital Encounter [facility] CT [address] [place] [address] Hunt, Viral V, DO Abdominal mass Discharge Disposition: Home or Self Care 04/09/[address] [address] Hunt, Viral V, DO Referral 04/09/2012 11:10 AM EDT Office Visit [facility] [address] [place] [address] Hunt, Viral V, DO Abdominal mass (Primary Dx); Need for influenza vaccination; Other screening mammogram; Muscle spasm 03/08/[address] [address] Bouchra Teague RMA Medication Problem 03/08/2012 3:20 PM EDT Office Visit [address] [address] Hunt, Viral V, DO Anxiety; Depression; Chronic back pain; Fracture of right foot 03/05/2012 6:39 PM EDT - 03/05/2012 8:12 PM EDT Emergency [place] [place] [address] Staci Espino MD Contusion, foot; Fracture of phalanx of toe Discharge Disposition: Home or Self Care 12/29/2011 1:47 PM EDT - 12/29/2011 11:59 PM EDT Hospital Encounter [facility] [address] [place] [address] Maggi Chi MD Neck pain Discharge Disposition: Home or Self Care 12/29/2011 1:46 PM EDT Hospital Encounter [facility] [place] [address] [address] Maggi Chi MD Lumbar back pain Discharge Disposition: Home or Self Care 12/29/2011 1:46 PM EDT Hospital Encounter [address] [place] [address] Maggi Chi MD Back pain, thoracic Discharge Disposition: Home or Self Care 12/22/2011 11:22 AM EDT - 12/22/2011 11:59 PM EDT Hospital Encounter [address] [place] [address] Maggi Chi MD Headaches, cluster Discharge Disposition: Home or Self Care 12/22/2011 11:06 AM EDT - 12/22/2011 11:21 AM EDT Hospital Encounter [facility] [place] [address] Maggi Chi MD Menopausal disorder Discharge Disposition: [...] the original. Sheryl does want to use [facility] 08/09/17 CSTA-08/22/17 [place] 08/22/17 UDS 12/18/17 Problem Noted Date Diagnosed Date History of ovarian cyst 03/19/2020 Family history of ovarian cancer 03/19/2020 Screening for colon cancer 06/17/2019 Overview (06/17/2019): Added automatically from request for surgery [id number] MDD (major depressive disord er), recurrent episode, [...] Hx Social History Smoking Status as of 05/12/2025 Tobacco Use Types Packs/Day Years Used Date [...] on file Medical Devices Implanted Type Area Animal Bounty Hunter Device Identifier Shelf Expiration Date Model / Serial / Lot Screw Tenodesis Biocomposite 7mm X 10mm - [id number] Implanted:Qty: 1 on 12/07/2012 by Syed Walker MD at [facility] Left: Arm ARTHREX 11/27/2014 AR-1670BC / +[id number] / Screw Tenodesis Biocomposite 7mm X 10mm - [id number] Implanted:Qty: 1 on 12/07/2012 by Syed Walker MD at [facility] Left: Arm ARTHREX 11/27/2014 AR-1670BC / +[id number] / Putty I-Factor 1.0cc Syringe - [id number] Implanted:Qty: 1 on 09/04/2017 by Harjinder Cain MD at [facility] N/A: Spine Cervical CERAPEDICS 05/30/2020 700-010 / / [id number] Plate Bone Ambassador L18 Mm Spine 1 Level Nonsterile - [id number] Implanted:Qty: 1 on 09/04/2017 by Harjinder Cain MD at [facility] NA: Spine Cervical PARADIGM [employer] 05- / / Screw Variable Self Drilling/Tapping 4.0x14mm - [id number] Implanted:Qty: 4 on 09/04/2017 by Harjinder Cain MD at [facility] NA: Spine Cervical PARADIGM BIODEVICES 05- / / Spacer Cervical Stealth 14 X 16 X 7 6 Degree - [id number] Implanted:Qty: 1 on 09/04/2017 by Harjinder Cain MD at [facility] NA: Spine Cervical PARADIGM [employer] [id number] / / Procedures Procedure Name Priority [...] CAGE OR Vg2 BONE AND PLATE, EVOKES #[id number], OR TABLE / OTHER, ASSIST, FLUOROReps notified-DT [...] Nontraumatic rupture of other tendon Special Needs CPT;[id number] MRI SHOULDER LEFT WO CONTRAST Routine 11/09/2012 [...] - 4.200 mcIU/mL 03/19/2020 7:23 PM EDT [facility] Blood VENOUS BLOOD / Unknown Venipuncture / Unknown 03/19/2020 2:52 PM EDT 03/19/2020 2:52 PM EDT Narrative [facility] - 03/19/2020 7:23 PM EDT Ingestion of caterina doses of biotin (>5 mg/day) taken within 8 hours of drawing blood sample can interfere with this immunoassay test. us Candi Nuno MD CHEMISTRY ORDERABLES Final Res ult [facility] [address] [facility] , [place] [address] * CBC WITH DIFF (03/19/2020 2:52 PM [...] 7:04 PM EDT [facility] Dukes Percent 9.0 % 03/19/2020 7:04 PM EDT [...] 03/19/2020 7:04 PM EDT [facility] Comment:Automated count of m etamyelocytes, myelocytes and promyelocytes. An absolute IG <0.1 is reported as 0.0. Lymph # 2.8 1.2 - 3.9 x10(3)/mcL 03/19/2020 7:04 PM EDT [facility], [facility] Dukes # 0.6 0.3 - 0.9 x10(3)/mcL 03/19/2020 7:04 PM EDT [facility], [facility] Eos# 0.0 0.0 - 0.5 x10(3)/mcL 03/19/2020 7:04 PM EDT [facility], [facility] Baso # 0.0 0.0 - 0.1 x10(3)/mcL 03/19/2020 7:04 PM EDT [facility], [facility] Blood VENOUS BLOOD / Unknown Venipuncture / Unknown 03/19/2020 2:52 PM EDT 03/19/2020 2:52 PM EDT us Candi Nuno MD HEMATOLOGY ORDERABLES Final Re sult Performing Organization Address [facility] de Phone Number [facility] [address] [facility] , [place] [address] * [place] 125 (03/19/2020 2:52 PM EDT) [facility] [place] 125 9.3 0.0 - 35.0 unit/mL 03/19/2020 7:55 PM EDT [facility], [facility] Comment:[facility] uses the [employer] Felt[employer]her CA125 II assay, which is intended to [...] ORDERABLES Final Res ult Performing Organization Address [facility] Co de Phone Number [facility] [address] [facility] , [place] [address] * LIPASE LEVEL (03/19/2020 2:52 PM EDT) Lipase Lvl 19 13 - 60 U/L 03/19/2020 7:23 PM EDT [facility] Blood VENOUS BLOOD / Unknown Venipuncture / Unknown 03/19/2020 2:52 PM EDT 03/19/2020 2:52 PM EDT Candi Nuno MD CHEMISTRY ORDERABLES Final Res ult Performing Organization Address City/[facility]/ZIP Co de Phone Number [facility], [facility] [address] [facility] , [place] [address] * AMYLASE LEVEL (03/19/2020 2:52 PM EDT) Amylase Lvl 66 28 - 100 U/L 03/19/2020 7:23 PM EDT [facility] Blood VENOUS BLOOD / Unknown Venipuncture / Unknown 03/19/2020 2:52 PM EDT 03/19/2020 2:52 PM EDT Candi Nuno MD CHEMISTRY ORDERABLES Final Res ult Performing Organization Address [facility] Co de Phone Number [facility] [address] [facility] , [place] [address] * (ABNORMAL) COMPREHENSIVE METABOLIC PANEL (03/19/2020 2:52 [...] 03/19/2020 7:23 PM EDT [facility] Calcium 9.9 8.6 - 10.4 mg/dL 03/19/2020 7:23 PM EDT [facility] Glucose Lvl 72(L) 74 - 100 mg/dL 03/19/2020 7:23 PM EDT [facility] BUN 10 6 - 20 mg/dL 03/19/2020 7:23 PM EDT [facility] Creatinine 1.04 0.51 - 1.30 mg/dL 03/19/2020 7:23 PM EDT [facility] Albumin 4.8 3.5 - 5.2 gm/dL 03/19/2020 7:23 PM EDT [facility] Total Protein 6.9 6.4 - 8.3 gm/dL 03/19/2020 7:23 PM EDT [facility] Bili Total 0.3 0.1 - 1.3 mg/dL 03/19/2020 7:23 PM EDT [facility] ALT 9 <=41 U/L 03/19/2020 7:23 PM EDT [facility] AST 20 <=40 U/L 03/19/2020 7:23 PM EDT [facility] Alk Phos 94 36 - 123 U/L 03/19/2020 7:23 PM EDT [facility] GFR Afr Am 71 >=60 mL/min/1.7 3 m2 03/19/2020 7:23 PM EDT [facility] GFR Non Afr Am 61 >=60 mL/min/1.7 3 m2 03/19/2020 7:23 PM EDT [facility] Comment: This estimated GFR was [...] Nuno MD CHEMISTRY ORDERABLES Final Res ult [facility] [address] [facility] [address] [place] [address] [facility] [address] [place] [address] * SEP URINALYSIS POC (03/19/2020 [...] TEST ORDERABLES Final Result Performing Organization Address City/[facility]/ZIP Co de Phone Number [facility] [address] [phone] * MRI BRAIN ATTN PITUITARY W WO [...] changes are present. - Candi Nuno MD [facility] MRI ORDERABLES Final Resul t * (ABNORMAL) URINE CULTURE (NO STAIN) (10/16/2019 8:30 AM EDT) Only the most recent of2 resultswithin the time period is included. Culture Positive Growth(A) 10/18/2019 6:53 AM EDT [facility] [employer] Culture 69587 CFU/mL Escherichia coli SUSCEPTIBI LITY RESULT 10/18/2019 6:53 AM EDT [facility] [employer] Urine URINE SPECIMEN COLLECTION, CLEAN CATCH / [...] MICROBIOLOGY - GENERAL ORDERAB LES Final Result [facility] [address] [facility] , [address] [place] [id number] * POCT URINALYSIS AUTOMATED (10/16/2019 8:28 AM EDT) Only the most recent of4 resultswithin the time period is included. Color, UA SEP OFFICE Clarity, UA SEP OFFICE Glucose, UA norm G/DL% SEP OFFICE Bilirubin, UA neg POS/NEG SEP OFFICE Ketones, UA neg POS/NEG SEP tax manager cpa Grav, UA 1.020 1.001 - 1.035 G/DL [...] 12:06 PM CLINICAL HISTORY: M25.512-Pain in left jwomggxd-CPV-92-CM COMPARISON: 09/24/2012 PROCEDURE COMMENTS: Routine views. FINDINGS: [...] 12:06 PM CLINICAL HISTORY: M25.512-Pain in left apgtslar-WOG-48-CM COMPARISON: 09/24/2012 PROCEDURE COMMENTS: Routine views. FINDINGS: [...] - 946 pg/mL 05/23/2019 8:50 PM EDT [facility] Folate >16.00(H) 4.50 - 16.00 ng/mL 05/23/2019 8:50 PM EDT [facility] Blood VENOUS BLOOD / Unknown Venipuncture / Unknown 05/23/2019 3:34 PM EDT 05/23/2019 3:34 PM EDT Narrative [facility] - 05/23/2019 8:50 PM EDT Ingestion of caterina doses of biotin (>5 mg/day) taken within 8 hours of drawing blood sample can interfere with this immunoassay test. us Candi Nuno MD CHEMISTRY ORDERABLES Final Res ult [facility] [address] [facility] , [place] [address] * HEMOGLOBIN A1C (05/23/2019 3:34 PM EDT) Hgb A1C 5.6 4.2 - 5.6 % 05/23/2019 8:38 PM EDT [facility] Est. Avg Glucose 114 mg/dL 05/23/2019 8:38 PM EDT [facility] Blood VENOUS BLOOD / Unknown Venipuncture / Unknown 05/23/2019 3:34 PM EDT 05/23/2019 3:34 PM EDT Narrative [facility] - 05/23/2019 8:38 PM EDT REFERENCE RANGE: Normal: 4.0-5.6% Pre-diabetes: 5.7-6.4% Provisional diagnosis of diabetes: >6.4% Hgb F>10% and anything which shortens red cell survival, such as hemolytic anemia, or unstable hemoglobin variants such as HbSS, HbSC, or HbCC, will lower the HbA1c value associated with a given level of glycemic control. us Candi Nuno MD CHEMISTRY ORDERABLES Final Res ult [facility] [address] [facility] , [address] [place] [id number] * LIPID SCREEN (05/23/2019 3:34 PM EDT) Only the most recent of3 resultswithin the time period is included. Cholesterol 190 <=200 mg/dL 05/23/2019 8:39 PM EDT [facility] Comment: < 200 Desirable 200 - 239 Borderline High >= 240 High Triglyceride 119 <=150 mg/dL 05/23/2019 8:39 PM EDT [facility] Comment: < 150 Normal 150 - 199 Borderline High 200 - 499 High >= 500 Very High HDL 74 >=40 mg/dL 05/23/2019 8:39 PM EDT [facility] Comment: > 60 Optimal 40 - 60 Acceptable < 40 Low LDL Calculated 92 <=100 mg/dL 05/23/2019 8:39 PM EDT [facility] Comment: < 100 Optimal 100 - 129 Near or above optimal 130 - 159 Borderline High 160 - 189 High >= 190 Very High Non-HDL-C Calculated 116 <=129 mg/dL 05/23/2019 8:39 PM EDT [facility] Comment: <130 Desirable 130-159 Above Desirable 160-189 Borderline High 190-219 High >= 220 Very High Fasting Specimen? Yes None 019 8:39 PM EDT [facility] Blood VENOUS BLOOD / Unknown Venipuncture / Unknown 05/23/2019 3:34 PM EDT 05/23/2019 3:34 PM EDT us Candi Nuno MD CHEMISTRY ORDERABLES Final Res ult [facility] [address] [place] [address] , [place] [address] * MRI THORACIC SPINE WO CONTRAST (05/14/2019 [...] 04/23/2019 3:48 PM CLINICAL HISTORY: M54.5-Low back vxht-YYV-38-CM F80-Kiacxwqiqti urinary kddraktvkmcr-MPG-10-CM COMPARISON: Radiographs 12/02/2016. No prior MRI. PROCEDURE [...] 04/23/2019 3:48 PM CLINICAL HISTORY: M54.5-Low back svqk-KPA-67-CM J27-Jzqfndqvxwl urinary cpnbagqmqfgl-BKD-99-CM COMPARISON: Radiographs 12/02/2016. No prior MRI. PROCEDURE [...] of neuralforamina bilaterally at L3-4. - [facility] SUPERCHARGER MECHANIC IMG MRI ORDERABL ES Final Result * [...] WITHOUT CONTRAST, 04/23/2019 3:30 PM CLINICAL HISTORY: M54.1-Dszgiqgjxny-CAF-10-CM Z98.1-Arthrodesis hocwbc-NWD-58-CM COMPARISON: MRI cervical spine 2018 PROCEDURE COMMENTS: [...] WITHOUT CONTRAST, 04/23/2019 3:30 PM CLINICAL HISTORY: M54.2-Ibiswmrivtq-RKM-10-CM Z98.1-Arthrodesis wxgwas-XUG-83-CM COMPARISON: MRI cervical spine 2018 PROCEDURE COMMENTS: [...] changes at C4-C5 and C5-C6 levels. - [facility]PER[facility] MECHAN[facility] MRI ORDERABL ES Final Result * (ABNORMAL) HB-1 CUSTOM UDS PANEL-QUEST (12/25/2018 10:40 PM EDT) Only the most recent of2 resultswithin the time period is included. Prescribed Drug 1 Gabapentin [facility] Prescribed Drug 2 [place](TM) [facility] Ritalinic Acid NEGATIVE <100 ng/mL [facility] Comment:See Note 1 medMATCH Ritalinic Acid CONSISTENT [facility] medMatch Comments [facility] Comment:See Note 2 Prescribed Drug 1 Gabapentin [facility] Prescribed Drug 2 [place](TM) [facility] 6-Acetylmorphine,GC/MS NEGATIVE <10 ng/mL [facility] medMATCH 6 Acetylmorphine CONSISTENT [facility] medMatch Comments [facility] Comment:See Note 2 Prescribed Drug 1 Gabapentin [facility] Prescribed Drug 2 [place](TM) [facility] Creatinine, Urine 130.1 > or = 20.0 mg/dL [facility] UA Spec Grav 1.023 > or = 1.003 [facility] UA pH 5.9 4.5 - 9.0 [facility] Oxidant NEGATIVE <200 mcg/mL [facility] Amphetamines NEGATIVE <500 ng/mL [facility] medMATCH Amphetamines CONSISTENT [facility] Barbiturates NEGATIVE <300 ng/mL [facility] medMATCH Barbiturates CONSISTENT [facility] Benzodiazepines NEGATIVE CONFIRMED <100 ng/mL [facility] ALPHAHYDROXYALPRAZOLAM NEGATIVE <25 ng/mL [facility] Comment:See Note 1 medMATCH aOH alprazolam CONSISTENT [facility] ALPHAHYDROXYMIDAZOLAM NEGATIVE <50 ng/mL [facility] Comment:See Note 1 MEDMATCH AOH MIDAZOLAM CONSISTENT [facility] ALPHAHYDROXYTRIAZOLAM-QU EST NEGATIVE <50 ng/mL [facility] Comment:See Note 1 medMATCH aOH triazolam CONSISTENT [facility] Aminoclonazepam NEGATIVE <25 ng/mL [facility] Comment:See Note 1 medMATCH Aminoclonazepam CONSISTENT [facility] Hydroxyethylflurazepam NEGATIVE <50 ng/mL [facility] Comment:See Note 1 MEDMATCH OH ET FLURAZEPAM CONSISTENT [facility] LORAZEPAM-QUEST NEGATIVE <50 ng/mL [facility] Comment:See Note 1 medMATCH Lorazepam CONSISTENT [facility] NORDIAZEPAM-QUEST NEGATIVE <50 ng/mL [facility] Comment:See Note 1 medMATCH Nordiazepam CONSISTENT [facility] OXAZEPAM-QUEST NEGATIVE <50 ng/mL [facility] Comment:See Note 1 medMATCH Oxazepam CONSISTENT [facility] TEMAZEPAM-QUEST NEGATIVE <50 ng/mL [facility] Comment:See Note 1 medMATCH Temazepam CONSISTENT [facility] Marijuana Metabolite NEGATIVE <20 ng/mL [facility] medMATCH Marijuana Metab CONSISTENT [facility] [facility] Cocaine Metabolite POSITIVE(A) <150 ng/mL [facility] [employer] [facility] BENZOYLECGONINE-QUEST 124(H) <100 ng/mL [facility] Comment:See Note 1 medMATCH Benzoylecgonine INCONSISTENT (A) [facility] Methadone NEGATIVE <100 ng/mL [facility] medMATCH Methadone CONSISTENT [facility] Opiates NEGATIVE <100 ng/mL [facility] medMATCH Opiates INCONSISTENT (A) [facility] Oxycodone NEGATIVE <100 ng/mL [facility] [employer] [facility] medMATCH Oxycodone CONSISTENT [facility] [employer] [facility] Confirmation Testing Performed at: [facility] Comment: [facility], , [place] [address], Group Art Supervisor: ANN HOWARD MD CLIA: [id number] medMatch Comments Qu est [employer] [facility] Comment: See Note 2 Note 1 This test was developed and its analytical performance characteristics have been determined by [employer]. It has not been cleared or approved [...] or to monitor progress of medical conditions. medIndiegogoTCH comments are: - present when drug test results may be the result of metabolism of one or more drugs or when results are inconsistent with prescribed medication(s) listed. - may be blank when drug results are consistent with prescribed medication(s) listed. For assistance with interpreting these drug results, please contact a [facility] Toxicology Specialist: [phone] ( ), M-F, 8am-6pm EST. 12/25/2018 10:4 0 PM EDT 12/26/2018 8:15 PM EDT Mingo Whatley MD [facility] ORDERABLE (NON- [facility]) Final Result Performing Organization Address City/[facility]/ZIP Co de Phone Number [facility] [address] [place] [address] [facility] [address] [place] [address] * THYROID STIMULATING HORMONE (12/25/2018 9:21 AM EDT) Only the most recent of2 resultswithin the time period is included. TSH 2.140 0.270 - 4.200 mcIU/mL 12/25/2018 2:43 PM EDT [facility] Blood Venipuncture / Unknown 12/25/2018 9:21 AM EDT 12/25/2018 9:22 AM EDT Narrative PREFERRED [facility] - 12/25/2018 2:43 PM EDT Ingestion of caterina doses of biotin (>5 mg/day) taken within 8 hours of drawing blood sample can interfere with this immunoassay test. us Mingo Whatley MD CHEMISTRY ORDERABLES Ann l Result [facility] [address] [facility] , [place] [address] * T4, FREE (THYROXINE) (12/25/2018 9:21 AM EDT) Only the most recent of2 resultswithin the time period is included. [facility] Signature Free T4 1.08 0.80 - 2.00 ng/dL 12/25/2018 2:41 PM EDT [facility] Blood Venipuncture / Unknown 12/25/2018 9:21 AM EDT 12/25/2018 9:22 AM EDT Narrative [facility] - 12/25/2018 2:41 PM EDT Ingestion of caterina doses of biotin (>5 mg/day) taken within 8 hours of drawing blood sample can interfere with this immunoassay test. Mingo Whatley MD CHEMISTRY ORDERABLES Ann l Result Performing Organization Address [facility] Co de Phone Number [facility] [address] [place] [address], [place] [address] * INTRAOP AIRWAY PLACEMENT (04/03/2018 3:25 PM EDT) Narrative [facility] - 04/03/2018 3:25 PM EDT Garth Kelsey CRNA 04/03/2018 3:25 PM Intraop Airway Placement: Airway type: Nasal cannula salter Procedure Note Garth Kelsey CRNA - 04/03/2018 3:25 PM EDT Intraop Airway Placement: Airway type: Nasal cannula salter us Arnel Olsen MD [facility] Final Result Performing Organization Address [facility] [place] [address] * (ABNORMAL) EMG (02/21/2018 4:16 PM EDT) Impressions 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 There is no EMG evidence of a right cervical radiculopathy or plexopathy. Narrative [facility] - 02/21/2018 4:16 PM EDT [...] ORDERABLES Final R esult Performing Organization Address [facility] [place] [address] * SCANNED RHYTHM STRIPS (09/06/2017 9:57 PM [...] ORDERABLES F inal Result Performing Organization Address [facility] Co de Phone Number PACS * [...] through 10th images document placement of anterior C5-[id number] plate. Total listed fluoroscopy time: 0.17 minutes. IMPRESSION: 1. Intraoperative documentation anterior C6-C7 ACDF. Harjinder Cain MD IMG DIAGNOSTIC IMAGING ORDER MARILEE Final Result * INTRAOP AIRWAY PLACEMENT (09/04/2017 11:31 AM EST) Narrative [facility] - 09/04/2017 11:31 AM EST [...] Unchanged and Atraumatic Insertion attempts: 1 Title: BAND SAW OPERATOR us Pierre Webber MD [facility] Final Res ult Performing Organization Address [facility] Co de Phone Number [facility] [address] [place] [address] * (ABNORMAL) VITAMIN D 25 HYDROXY (08/31/2017 7:49 AM EST) Only the most recent of2 resultswithin the time period is included. Pathologist [facility] Vit D 25 OH 18.0(L) 30.0 - 120.0 ng/mL 08/31/2017 3:48 PM EST [facility] Comment: INTERPRETIVE INFORMATION: Vitamin D, [...] ORDERABLES Ann l Result Performing Organization Address [facility] Co de Phone Number [facility] [address] [place] [address] * BASIC METABOLIC PANEL (08/31/2017 7:49 AM EST) [facility] Sodium 142 136 - 145 mmol/L 08/31/2017 9:10 AM EST [facility] Potassium 4.5 3.5 - 5.0 mmol/L 08/31/2017 9:10 AM EST [facility] Chloride 106 98 - 107 mmol/L 08/31/2017 9:10 AM [facility] Total CO2 28 22 - 29 mmol/L 08/31/2017 9:10 AM [facility] Anion Gap 8 7 - 16 mmol/L 08/31/2017 9:10 AM [facility] Calcium 9.5 8.6 - 10.2 mg/dL 08/31/2017 9:10 AM [facility] Glucose Lvl 93 74 - 100 mg/dL 08/31/2017 9:10 AM [facility] BUN 19 6 - 20 mg/dL 08/31/2017 9:10 AM [facility] Creatinine 1.16 0.51 - 1.30 mg/dL 08/31/2017 9:10 AM [facility] GFR Afr Am 63 mL/min/1.7 3 m2 08/31/2017 9:10 AM [facility] GFR Non Afr Am 55 mL/min/1.7 3 m2 08/31/2017 9:10 AM [facility] Comment: GFR Afr Am and [...] Whatley MD CHEMISTRY ORDERABLES Ann moya Result [facility] [address] [place] [address] * BB HISTORY CHECK (08/29/2017 9:32 AM EST) BB HISTORY CHECK (1) No Previous History 08/29/2017 10:13 AM EST [facility] Blood VENOUS BLOOD / Unknown Venipuncture / Unknown 08/29/2017 9:32 AM EST 08/29/2017 10:02 AM EST Harjinder Cain MD BLOOD BANK ORDERABLES Final Result Performing Organization Address City/[facility] Co de Phone Number [facility] [address] [place] [address] * SURGERY DATE (08/29/2017 9:32 AM EST) Pathologist [facility] Surgery Date (1) Complete 08/29/2017 10:13 AM EST [facility] Blood VENOUS BLOOD / Unknown Venipuncture / Unknown 08/29/2017 9:32 AM EST 08/29/2017 10:02 AM EST Harjinder Cain MD BLOOD BANK ORDERABLES Final Result Performing Organization Address [facility] Co de Phone Number [facility] [address] [place] [address] * STAPHYLOCOCCUS AUREUS SCREEN (08/29/2017 9:32 AM EST) Pathologist [facility] Staph aureus PCR Not Detected Not Detected 08/30/2017 8:48 AM EST [facility] MRSA PCR Not Detected Not Detected 08/30/2017 8:48 AM EST [facility] Swab BOTH ANTERIOR NARES / Unknown 08/29/2017 9:32 AM EST 08/29/2017 10:02 AM EST Narrative [facility] - 08/30/2017 8:48 AM EST Staphylococcus aureus target DNA sequence is not detected. This qualitative assay is intended for the detection of Staphylococcus aureus proprietary sequences for the staphylococcal protein A (spa) gene, the gene for methicillin resistance (mecA), and the staphylococcal cassette chromosome mec (SCCmec) inserted into the SA chromosomal attB site. This assay utilizes real time PCR on the [employer] GeneXpert Infinity, and its performance has been verified by the [facility]. A negative result does [...] has been developed and validated by the [facility] laboratory. Detailed methodology is available upon request. Harjinder Cain MD MICROBIOLOGY - GENERAL ORDER MARILEE Final Result Performing Organization Address City/[facility]/ZIP Co de Phone Number [facility] [address] [place] [phone] * ABORH (08/29/2017 9:32 AM EST) ABORH Int O POS 08/29/2017 11:21 AM EST [facility] Blood VENOUS BLOOD / Unknown Venipuncture / Unknown 08/29/2017 9:32 AM EST 08/29/2017 10:02 AM EST Harjinder Cain MD BLOOD BANK ORDERABLES Final Result Performing Organization Address [facility] Co de Phone Number [facility] [address] [place] [address] * ANTIBODY SCREEN IGG (08/29/2017 9:32 AM EST) ABSC IgG Int Negative 08/29/2017 11:21 AM EST [facility] Blood VENOUS BLOOD / Unknown Venipuncture / Unknown 08/29/2017 9:32 AM EST 08/29/2017 10:02 AM EST Harjinder Cain MD BLOOD BANK ORDERABLES Final Result Performing Organization Address City/[facility] Co de Phone Number [facility] [address] [place] [address] * POCT EKG (06/09/2017 2:39 [...] CLINICAL HISTORY: Female patient aged 52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
== END 2025-05-09 23:59 ==
LOC: LAB.DROPOF 05-12 10:36
PROVIDERS: PCP Family Medicine; Visit Provider Family Medicine
DX: E87.6 Hypokalemia (principal)
CPT/HCPCS: 80048

== ENCOUNTER 2025-06-09 14:35 | Emergency (ER) | payer MEDICARE, MEDICAID, SELFPAY ==
[2025-06-09 14:39] VITALS: BP 137/59; PULSE 59; RESP 18; TEMP 36.7; O2SAT 94; BMI 26.6
--- NOTE | 2025-06-09 14:44 | XR_ITS ---
FINAL REPORT CLINICAL HISTORY: ankle pain injury beginning of April FINDINGS: RIGHT ANKLE 3 views of the right ankle were obtained. There is no acute fracture or dislocation. There are mild diffuse degenerative changes. The mortise is intact. Visualized joint spaces are normally aligned. Soft tissues are unremarkable. IMPRESSION: No acute bony abnormality. Reviewed, Interpreted and Dictated by Min Gilbert MD Transcribed by Hilaria Canseco Authenticated and [facility]
--- NOTE | 2025-06-09 14:48 | XR_ITS ---
FINAL REPORT CLINICAL HISTORY: foot pain injury beginning of April FINDINGS: RIGHT FOOT 3 views of the right foot were obtained. There is no acute fracture or dislocation. There are mild diffuse degenerative changes. Visualized joint spaces are normally aligned. Soft tissues are unremarkable. IMPRESSION: No acute bony abnormality. Reviewed, Interpreted and Dictated by Min Gilbert MD Transcribed by Hilaria Canseco Authenticated and . [facility]
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
--- OUTSIDE RECORDS SUMMARY | 2025-06-09 15:09 | XMS_ITS | Data Portability ---
Author Organization [facility] Address [address] [place] [address] Care Team Providers Care Technical Administrator Name Role Phone CORAL SCHNEIDER Referring Provider [...] Address Organization Details Recorded Time Hypertensive disorder 73526789 Active Danielle Lori null, [facility] 14:37:14 Insomnia 750740611 Active Danielle Lori null, [facility] 14:39:35 Depressive disorder 65424084 [facility] Aneurysm 788021168 Active Danielle Lori null, [facility] 4 14:40:09 Degenerative disorder 712015827 Active Danielle Lori null, [facility] 14:41:35 Arthritis 6259772 Active Danielle Lori null, [facility] 14:42:09 Anxiety 34218736 Active Danielle Lori null, [facility] 14:42:24 Cyst of ovary 62896559 [facility] 14[facility] Chronic pain syndrome 427524914 Active 2023 Anna Salazar, [employer] [address], [place], [address] , [place] - [facility] 4 15:22:24 Problem Notes None recorded. Procedures Surgical History Date Name Laterality Status Provider Name and Address Organization Details Recorded Time 8 Brain surgery completed Danielle Sandoval [place] - [facility] 09/14/2023 14:19:15 6 Back Surgery completed Danielle VALDIVIA - [facility] 09/14/2023 14:19:14 6 Hysterectomy completed Danielle VALDIVIA - [facility] 09/14/2023 14:19:14 9 Colposcopy completed Danielle VALDIVIA [facility] 09/14/2023 14:18:42 Stress test completed Danielle Sandoval [place] - [facility] 09/14/2023 14:19:14 Imaging Results None recorded. Procedure Notes None recorded. Medical Equipment None Reported. Allergies Allergen ID Allergen Name Allergen Category Reaction Reaction Severity Criticality Documentation Date Start Date Code Code System Note Provider Name and Address Organization Details Recorded Time 978932 morphine medicatio n rash Not available high 09/14/2023 7052 RxNorm Danielle gonzalez, [place] - [facility] 4 14:31:30 467045 codeine medicatio n rash Not available high 09/14/2023 2670 RxNorm Danielle gonzalez, [place] - [facility] 4 14:31:48 675675 Paxil medicatio n rash Not available [facility] 09/14/2023 93634 8 RxNorm Danielle gonzalez, [facility] 4 14:32:02 Medications Name Sig Start [...] Updated DateTime 4 172.72 cm 25.9 kg/m2 46270.8 g 97.1 [degF] 93 /min 96 % [...] Or The Highest Degree You Have Received? [id number] Information not available 09/14/2023 When Did You [...] anxious, or unable to sleep at night)? [id number] Information not available 09/14/2023 Family History Relationship [...] Not available 2023 14:18:34 Unspecified Relation Malignant neoplasm of cervix uteri cbuckler Not available 14:18:34 Father Malignant neoplasm of lung cbuckler [...] quadrivalent, preservative 7 completed Danielle L[place], [place] [facility] 09/14/2023 14:29:09 Influenza, split virus, quadrivalent, preservative 7 completed Danielle Lori null, [facility] 09/14/2023 14:29:09 Influenza, split virus, quadrivalent, preservative 5 completed Danielle Lori null, [facility] 09/14/2023 14:29:09 Influenza, recombinant, quadrivalent, PF 9 completed Danielle Lori null, [facility] 09/14/2023 14:29:09 pneumococcal polysaccharide PPV23 9 completed Danielle Lori [place], [place] [facility] 09/14/2023 14:29:09 Influenza, split virus, quadrivalent, PF 0 completed Danielle Lori null, [facility] 09/14/2023 14:29:09 Influenza, split virus, quadrivalent, PF 1 completed Danielle L[place], [place] [facility] 09/14/2023 14:29:09 Influenza, split virus, quadrivalent, PF 2 completed Danielle Lori null, [facility] 09/14/2023 14:29:09 Past Encounters Encounter ID Performer Location Encounter Start Date Encounter Closed Date Diagnosis/Indication Diagnosis SNOMED-CT Code Diagnosis ICD10 Code Diagnosis IMO Codes Diagnosis Note [id number] Anna Salazar APRN [address] [address] 09/14/2023 14:04:39 09/14/2023 15:13:33 Hypertensive disorder 91573849 I10 Depressive disorder 3548 9007 F32.A Degenerative disorder 36 7293241 R69 Chronic pain syndrome 37 6472650 G89.4 explained pt pt I can not write percocet but could refer to pain management or decrease her to norco and pt states norco does not help and she does not want to go to pain management ,states she will continue to see her old pcp for now. Aneurysm 497465963 I72.9 Anxiety 00771639 F41.9 pt states she will remain with [...] DUAL COMPLETE (MEDICARE REPLACEMENT/ ADVANTAGE - HMO) [id number] Sheryl Dunlap [id number] Sheryl Dunlap Notes Date Note Type Note Provider Name and Address Organization Details Recorded Time 09/14/2023 text/html 58 yr old female presents to establish care. pt reports chronic back/neck pain, anxiety,htn,depr ession and insomnia. Anna Salazar, [employer] [address], [place], [address], [place] - [facility] 09/14/2023 15:26:58 OBGyn Episode No OBEpisode recorded.
--- OUTSIDE RECORDS SUMMARY | 2025-06-09 15:09 | XMS_ITS | Encounter Summary ---
Author Organization Healthcare Address [address] [place] [address] Care Team Providers Care 3D Artist Name Role Phone Alexx Madrid MD Primary Care Provider [phone] Harjinder Lora DO Primary Care Provider Encounter Details Date Type Department Care Team (Late st Contact Info) Description 05/28/2021 Community [facility] [address] [place] [address] [place], [place] [address] [place], [place] [id number] Chronic joint pain (Primary Dx) Social History [...] unspecified documented in this encounter Care Teams 3D Artist Relationship Specialty [place] [address] [place] [id number] PCP - General 12/11/20 06/17/21 Harjinder Lora DO [address] [place] [address] PCP - General 02/19/24 documented as of this encounter
--- OUTSIDE RECORDS SUMMARY | 2025-06-09 15:09 | XMS_ITS | Clinical Summary ---
Author Organization [facility] Address [address] [place] [address] Care Team Providers Care Meat Specialist Name Role Phone GuidoHarjinder Primary Care Provider [phone] Social History Tobacco Use Types Packs/Day Years Used Date Smoking Tobacco: Never Assessed Comments Unknown Sex and Gender Information Value Date Recorded Sex Assigned at Not on file Legal Sex Female 8:28 PM EDT Gender Identity Not on file Sexual Orientation Not on file Plan of Treatment Not on file Insurance [employer] MEDICARE [employer] MEDICAID Care Teams Meat Specialist Relationship Specialty Start Date End Date Harjinder Lora DO [address] [place] [address] PCP - General 02/19/24
--- OUTSIDE RECORDS SUMMARY | 2025-06-09 15:09 | XMS_ITS | Clinical Summary ---
Author Organization [facility] Address [address] [place] [address] Care Team Providers Care Lithographic Stripper Name Role Phone Albert Oliveros MD Primary Care Provider [phone] Allergies Active Allergy Reactions Criticality Noted Date [...] (11/17/2021): Added automatically from request for surgery [id number] Anxiety 06/03/2021 Chronic back pain 06/03/2021 PSVT [...] 04/30 Potentially Unsafe Housing Conditions Not on gniger e 05/12/2023 Family and Community Support Answer [...] (1 of 2) 2017 MAMMOGRAM 01/26/2018 01/27/2016, 12/30, 04/13/2012 Pneumococcal Vaccine 50+ (2 of 2 - PCV) 05/23/2020 05/23/2019 ANNUAL PHYSICAL 07/06/2021 HEPATITIS C SCREENING 07/06/2021 INFLUENZA VACCINE 02/28/2025 05/23/2019, , 08/18/2016, Additional history exists Medical Devices Implanted Type Area Manager Educational Device Identifier Shelf Expiration Date Model / Serial / Lot Stent Mason/Divr Surpassevolve Ds 5x15/5.2mm - [id number] Implanted:Qty: 1 on 12/09/2021 by Car Ledezma MD at [facility] Implant DESIREE KEVEN 11/19/2022 [id number] Insurance [facility] DUAL COMPLETE MEDIC [facility] MEDICAID Advance Directives * CPR (Attempt [...] Of Support Discussed With: Patient Care Teams Lithographic Stripper Relationship Specialty Start Date End Date Albert Oliveros MD [address] [facility] [address] ATTN: [place] [address] PCP - General Emergency Medicine 06/02/21
[2025-06-09 16:49] VITALS: BP 125/80; PULSE 67; RESP 18; TEMP 36.7; O2SAT 100
== END 2025-06-09 17:00 | disposition home or self-care (01) ==
PROVIDERS: Emergency Provider Student in an Organized Health Care Education/Training Program; PCP Family Medicine
DX: S93.401A Sprain of unspecified ligament of right ankle, initial encounter (principal); S96.911A Strain of unspecified muscle and tendon at ankle and foot level, right foot, initial encounter; W19.XXXA Unspecified fall, initial encounter
CPT/HCPCS: 73610; 73630; 99283